=== PATIENT | female | born 1980 | race African-American/Black ===

== ENCOUNTER → 2018-05-31 16:54 | Outpatient (REF) | payer OTHER, SELFPAY | LOC: NCHCN 16:54 | PROVIDERS: PCP Family Medicine; Visit Provider Family Medicine | DX: J02.9 Acute pharyngitis, unspecified (principal) | CPT/HCPCS: 87070 ==

== ENCOUNTER 2018-08-26 03:15 | Emergency (ER) | payer OTHER, SELFPAY ==
[2018-08-26 03:21] VITALS: BP 146/85; PULSE 105; RESP 20; TEMP 36.8; O2SAT 98
[2018-08-26] MEDS: Bupivacaine 0.5% Pres-Free 30 ML VIAL IJ (03:26)
--- NOTE | 2018-08-26 03:26 | W.ED.GENAD ---
Discharge Plan Disposition Patient Disposition: HOME Condition: Improving Discharge Details Chief Complaint: DentalOral Clinical Impression: Sinusitis, acute maxillary Primary Care Provider: Nicky Brewster V ED Provider: Fred Armendariz Home Meds and New Rx's Prescriptions: New clindamycin HCl 300 mg capsule 300 mg PO QID Qty: 28 RF: 0 Continue celecoxib [Celebrex] 100 MG capsule 200 mg PO DAILY RF: 0 citalopram 10 MG tablet 10 mg PO DAILY RF: 0 sucralfate [Carafate] 1 GM tablet 1 g PO QID RF: 0 ciclesonide [Omnaris] 12.5 GM spray,non-aerosol 100 mcg NS DAILY RF: 0 levonorgestrel [Mirena] 1 EACH intrauterine device 1 ea Intrauterine ONCE Qty: 1 RF: 0 hydroxychloroquine 200 MG tablet 400 mg PO BID RF: 0 cyanocobalamin (vitamin B-12) [Vitamin B-12] 1,000 MCG/ML drops 1,000 mcg IM DIRECTED RF: 0 ergocalciferol (vitamin D2) [Vitamin D2] 50,000 UNITS capsule 1 tab PO DIRECTED RF: 0 cetirizine 10 MG tablet 10 mg PO DAILY RF: 0 epinephrine [EpiPen 2-Don] 0.3 MG/0.3 ML auto-injector 0.3 mg IJ PRN PRNQty: 1 RF: 0 spironolactone 100 MG tablet 100 mg PO DAILY RF: 0 Discharge Instructions Instructions: Sinusitis (ED) Additional Instructions: May use tramadol, if needed for severe pain. May also use Tylenol. Please follow-up with dentistry for recheck. Take clindamycin as prescribed. I recommend you take an [id number] probiotic while using this medication. Return to the emergency department for any acute concerns Medical Decision Making 38-year-old female presents with left maxillary pain over hours time. She has poor dentition on exam as well as distended left tympanic membrane. Differential diagnosis includes maxillary sinusitis versus odontalgia/apical infection. Patient given apical block with a 50-50 mix of lidocaine and Marcaine. I will place her on a course of antibiotics. Given her allergy profile, will opt for clindamycin. Patient will follow up with dentistry. Return precautions to the ER were discussed. HPI General Mode of arrival: ambulatory. Date/Time Provider Initiated Documentation: 08/26/18 03:18. Limitations to Documentation: no limitations. History of Present Illness 38 year old F presents to the emergency department with the chief complaint of Left maxillary pain, no rash, described as severe, Quality is described as aching, and is localized to the face and left. Patient started experiencing this hour(s) and it has been constant. No relieving factors improve symptom(s), No exacerbating factors reported . Patient notes no other symptoms.; denies fever/chills, nausea/vomiting and rash. Related Data Home Medications Medication Instructions Recorded Confirmed cyanocobalamin (vitamin B-12) 1,000 mcg IM DIRECTED 02/10/14 08/26/18 [Vitamin B-12] hydroxychloroquine 400 mg PO BID 02/10/14 08/26/18 ergocalciferol (vitamin D2) 1 tab PO DIRECTED 06/22/14 08/26/18 [Vitamin D2] celecoxib [Celebrex] 200 mg PO DAILY tab-cap 10/20/14 04/27/17 cetirizine 10 mg PO DAILY 01/20/15 08/26/18 epinephrine [EpiPen 2-Don] 0.3 mg IJ PRN PRN #1 ml 01/21/15 08/26/18 ciclesonide [Omnaris] 100 mcg NS DAILY spray 12/01/16 08/26/18 citalopram 10 mg PO DAILY tab-cap 12/01/16 08/26/18 sucralfate [Carafate] 1 g PO QID tab-cap 12/01/16 08/26/18 spironolactone 100 mg PO DAILY 04/27/17 08/26/18 levonorgestrel [Mirena] 1 ea INTRAUTERINE ONCE #1 implant 06/26/17 08/26/18 clindamycin HCl 300 mg PO QID #28 cap 08/26/18 Previous Rx's Medication Instructions Recorded epinephrine [EpiPen 2-Don] 0.3 mg IJ PRN PRN #1 ml 01/21/15 clindamycin HCl 300 mg PO QID #28 cap 08/26/18 Allergies Allergy/AdvReac Type Severity Reaction Status Date / Time apricot Allergy Severe swelling Unverified 08/26/18 03:28 of lips and throat cholestyramine Allergy Severe sores in Unverified 08/26/18 03:28 [From Questran] mouth and throat ibuprofen Allergy Severe high dose Unverified 08/26/18 03:28 causes extreme swelling peach Allergy Severe swelling Unverified 08/26/18 03:28 lips and throat sucrose [From Questran] Allergy Severe sores in Unverified 08/26/18 03:28 mouth and throat tree nut Allergy Severe Unverified 08/26/18 03:28 banana Allergy Intermediate Unverified 08/26/18 03:28 ivermectin Allergy Intermediate leukocytoclastic Unverified 08/26/18 03:28 vasculitis penicillamine Allergy Intermediate hives,swell Unverified 08/26/18 03:28 ing Penicillins Allergy Intermediate hives, Unverified 08/26/18 03:28 swelling venlafaxine HCl Allergy Intermediate UNKNOWN Unverified 08/26/18 03:28 [From Effexor] doxycycline Allergy Mild I don't Unverified 08/26/18 03:28 tolerate it montelukast sodium AdvReac Severe facial Unverified 08/26/18 03:28 [From Singulair] swelling, itching, depression bupropion HCl AdvReac Intermediate visual Unverified 08/26/18 03:28 [From Wellbutrin] disturbances latex AdvReac Intermediate Skin Rash Unverified 08/26/18 03:28 walnut Allergy Severe swelling Uncoded 08/26/18 03:28 tongue and throat Review of Systems Review of Systems 6 systems reviewed and otherwise negative PFSH Family History Other Hydradenitis Ingrown hair Medical History Depression Dry eye syndrome Endometritis Fibromyalgia Migraine Obesity Social History Smoking/Tobacco Use Status: Never Surgical History section Cholecystectomy Exam Narrative Exam Narrative: GEN: awake, alert, oriented 3. Pleasant, well groomed, and HEAD: Normocephalic, atraumatic ENT: Mucous membranes moist, oropharynx unremarkable, External ear exam unremarkable. Left tympanic membrane distended with loss of light reflex. Numerous dental caries. Tenderness to percussion of left maxillary premolar EYES: PERRL, EOMI NECK: Full ROM, no ALVIN, no menigismus CHEST/RESP: Nontender, clear to auscultation bilateral, no wheeze/rhonchi/rales CARDIOVASCULAR: RRR, no murmur, rub dale. 2+ Rad pulse bilateral ABDOMEN: Soft, nontender, no mass. +Bowel sounds EXT: Full ROM, no edema, no rash Neuro: Grossly normal neurologic exam, conversant, interactive. Psych: Speech fluent, thoughts congruent, affect anxious
--- NOTE | 2018-08-26 03:30 | ED.GENADUL_ITS ---
Discharge Plan Disposition Patient Disposition: HOME Condition: Improving Discharge Details Chief Complaint: DentalOral Clinical Impression: Sinusitis, acute maxillary Primary Care Provider: Nicky Brewster V ED Provider: Fred Armendariz Home Meds and New Rx's Prescriptions: New clindamycin HCl 300 mg capsule 300 mg PO QID Qty: 28 RF: 0 Continue celecoxib [Celebrex] 100 MG capsule 200 mg PO DAILY RF: 0 citalopram 10 MG tablet 10 mg PO DAILY RF: 0 sucralfate [Carafate] 1 GM tablet 1 g PO QID RF: 0 ciclesonide [Omnaris] 12.5 GM spray,non-aerosol 100 mcg NS DAILY RF: 0 levonorgestrel [Mirena] 1 EACH intrauterine device 1 ea Intrauterine ONCE Qty: 1 RF: 0 hydroxychloroquine 200 MG tablet 400 mg PO BID RF: 0 cyanocobalamin (vitamin B-12) [Vitamin B-12] 1,000 MCG/ML drops 1,000 mcg IM DIRECTED RF: 0 ergocalciferol (vitamin D2) [Vitamin D2] 50,000 UNITS capsule 1 tab PO DIRECTED RF: 0 cetirizine 10 MG tablet 10 mg PO DAILY RF: 0 epinephrine [EpiPen 2-Don] 0.3 MG/0.3 ML auto-injector 0.3 mg IJ PRN PRNQty: 1 RF: 0 spironolactone 100 MG tablet 100 mg PO DAILY RF: 0 Discharge Instructions Instructions: Sinusitis (ED) Additional Instructions: May use tramadol, if needed for severe pain. May also use Tylenol. Please follow-up with dentistry for recheck. Take clindamycin as prescribed. I recommend you take an [id number] probiotic while using this medication. Return to the emergency department for any acute concerns Medical Decision Making 38-year-old female presents with left maxillary pain over hours time. She has poor dentition on exam as well as distended left tympanic membrane. Differential diagnosis includes maxillary sinusitis versus odontalgia/apical infection. Patient given apical block with a 50-50 mix of lidocaine and Marcaine. I will place her on a course of antibiotics. Given her allergy profile, will opt for clindamycin. Patient will follow up with dentistry. Return precautions to the ER were discussed. HPI General Mode of arrival: ambulatory . Date/Time Provider Initiated Documentation: 08/26/18 03:18 . Limitations to Documentation: no limitations . History of Present Illness 38 year old F presents to the emergency department with the chief complaint of Left maxillary pain, no rash, described as severe, Quality is described as aching, and is localized to the face and left. Patient started experiencing this hour(s) and it has been constant. No relieving factors improve symptom( s), No exacerbating factors reported . Patient notes no other symptoms.; denies fever/chills, nausea/vomiting and rash. Related Data Home Medications Medication Instructions Recorded Confirmed cyanocobalamin (vitamin B-12) 1,000 mcg IM DIRECTED 02/10/14 08/26/18 [Vitamin B-12] hydroxychloroquine 400 mg PO BID 02/10/14 08/26/18 ergocalciferol (vitamin D2) 1 tab PO DIRECTED 06/22/14 08/26/18 [Vitamin D2] celecoxib [Celebrex] 200 mg PO DAILY tab-cap 10/20/14 04/27/17 cetirizine 10 mg PO DAILY 01/20/15 08/26/18 epinephrine [EpiPen 2-Don] 0.3 mg IJ PRN PRN #1 ml 01/21/15 08/26/18 ciclesonide [Omnaris] 100 mcg NS DAILY spray 12/01/16 08/26/18 citalopram 10 mg PO DAILY tab-cap 12/01/16 08/26/18 sucralfate [Carafate] 1 g PO QID tab-cap 12/01/16 08/26/18 spironolactone 100 mg PO DAILY 04/27/17 08/26/18 levonorgestrel [Mirena] 1 ea INTRAUTERINE ONCE #1 implant 06/26/17 08/26/18 clindamycin HCl 300 mg PO QID #28 cap 08/26/18 Previous Rx's Medication Instructions Recorded epinephrine [EpiPen 2-Don] 0.3 mg IJ PRN PRN #1 ml 01/21/15 clindamycin HCl 300 mg PO QID #28 cap 08/26/18 Allergies Allergy/AdvReac Type Severity Reaction Status Date / Time apricot Allergy Severe swelling Unverified 08/26/18 03:28 of lips and throat cholestyramine Allergy Severe sores in Unverified 08/26/18 03:28 [From Questran] mouth and throat ibuprofen Allergy Severe high dose Unverified 08/26/18 03:28 causes extreme swelling peach Allergy Severe swelling Unverified 08/26/18 03:28 lips and throat sucrose [From Questran] Allergy Severe sores in Unverified 08/26/18 03:28 mouth and throat tree nut Allergy Severe Unverified 08/26/18 03:28 banana Allergy Intermediate Unverified 08/26/18 03:28 ivermectin Allergy Intermediate leukocytoclastic Unverified 08/26/18 03:28 vasculitis penicillamine Allergy Intermediate hives,swell Unverified 08/26/18 03:28 ing Penicillins Allergy Intermediate hives, Unverified 08/26/18 03:28 swelling venlafaxine HCl Allergy Intermediate UNKNOWN Unverified 08/26/18 03:28 [From Effexor] doxycycline Allergy Mild I don't Unverified 08/26/18 03:28 tolerate it montelukast sodium AdvReac Severe facial Unverified 08/26/18 03:28 [From Singulair] swelling, itching, depression bupropion HCl AdvReac Intermediate visual Unverified 08/26/18 03:28 [From Wellbutrin] disturbances latex AdvReac Intermediate Skin Rash Unverified 08/26/18 03:28 walnut Allergy Severe swelling Uncoded 08/26/18 03:28 tongue and throat Review of Systems Review of Systems 6 systems reviewed and otherwise negative PFSH Family History Other Hydradenitis Ingrown hair Medical History Depression Dry eye syndrome Endometritis Fibromyalgia Migraine Obesity Social History Smoking/Tobacco Use Status: Never Surgical History section Cholecystectomy Exam Narrative Exam Narrative: GEN: awake, alert, oriented 3. Pleasant, well groomed, and HEAD: Normocephalic, atraumatic ENT: Mucous membranes moist, oropharynx unremarkable, External ear exam unremarkable. Left tympanic membrane distended with loss of light reflex. Numerous dental caries. Tenderness to percussion of left maxillary premolar EYES: PERRL, EOMI NECK: Full ROM, no ALVIN, no menigismus CHEST/RESP: Nontender, clear to auscultation bilateral, no wheeze/rhonchi/rales CARDIOVASCULAR: RRR, no murmur, rub dale. 2+ Rad pulse bilateral ABDOMEN: Soft, nontender, no mass. +Bowel sounds EXT: Full ROM, no edema, no rash Neuro: Grossly normal neurologic exam, conversant, interactive. Psych: Speech fluent, thoughts congruent, affect anxious
[2018-08-26] MEDS: Clindamycin 150 MG CAP 600 MG PO (03:48)
[2018-08-26 03:50] VITALS: BP 146/85; PULSE 105; RESP 20; TEMP 36.8; O2SAT 98
== END 2018-08-26 03:46 | disposition home or self-care (01) ==
LOC: ER 03:59
PROVIDERS: Emergency Provider Emergency Medicine; PCP Family Medicine
DX: J01.00 Acute maxillary sinusitis, unspecified (principal)
CPT/HCPCS: 64402; 99283

== ENCOUNTER 2018-09-20 00:30 | Outpatient (CLI) | payer OTHER, SELFPAY ==
--- NOTE | 2018-09-20 07:35 | DI.MAMMO_ITS ---
SYMPTOM/DIAGNOSIS: SCREENING, BASELINE, [facility], Z00.00 MAMMOGRAMS: Mammograms were interpreted according to the usual protocol including computer analysis with CAD system, tomosynthesis and C view imaging. This is a baseline examination. Breast density, category B. No suspicious masses or microcalcifications are seen. The skin and axilla are unremarkable. IMPRESSION: No evidence for malignancy. Yearly mammography is recommended. Category 1. MQSA ASSESSMENT OF FINDINGS: Negative. Category 1. Patient will receive a letter notifying them of these results. BI-RADS category B. There are scattered areas of fibroglandular density.
== END 2018-09-20 00:50 ==
PROVIDERS: PCP Family Medicine; Visit Provider Family Medicine
DX: Z00.00 Encounter for general adult medical examination without abnormal findings (principal); Z12.31 Encounter for screening mammogram for malignant neoplasm of breast
CPT/HCPCS: 77063; 77067

== ENCOUNTER 2018-12-04 08:46 | Outpatient (CLI) | payer OTHER, SELFPAY ==
[2018-12-04] MEDS: Barium Sulfate 60% W/V 355 ML BTL PO (10:02)
[2018-12-04] MEDS: Barium Sulfate 700 MG TAB PO (10:04)
--- NOTE | 2018-12-04 10:05 | DI.RAD_ITS ---
SYMPTOMS/DIAGNOSIS: INTERMITTENT DYSPHAGIA, R13.10, SENSE OF FOOD GETTING STUCK, ESOPHAGEAL DYSMOTILITY, POSSIBLE HIATAL HERNIA BARIUM SWALLOW: Routine examination was performed. Chest x-ray was performed. The heart size and pulmonary vasculature are within normal limits. The lungs are clear and well expanded. No effusions or pneumothoraces are identified. There is a mild right convex scoliosis of the thoracic spine. Barium swallow was performed according to protocol. There is a normal swallowing mechanism. No gastroesophageal reflux or aspiration was identified. No intrinsic or extrinsic masses are seen in the esophagus. No ulcers or strictures are appreciated. Note is made of a small hiatal hernia. IMPRESSION: Small hiatal hernia. Otherwise negative examination.
== END 2018-12-04 09:06 ==
PROVIDERS: PCP Family Medicine; Visit Provider Family Medicine
DX: R13.10 Dysphagia, unspecified (principal); K44.9 Diaphragmatic hernia without obstruction or gangrene
CPT/HCPCS: 74220

== ENCOUNTER 2019-01-08 10:19 | Emergency (ER) | payer OTHER, SELFPAY ==
--- NOTE | 2019-01-08 10:24 | DI.CT_ITS ---
SYMPTOMS/DIAGNOSIS: LT SIDED ABD PAIN CT OF THE ABDOMEN AND PELVIS: There are no prior comparison abdomen and pelvic exams. Images were performed from the lung bases through the ischial tuberosities after IV and without oral contrast. The lung bases are clear. The patient is status post cholecystectomy. The liver, spleen, pancreas, right adrenal and kidneys are unremarkable. There is a stable small low density left adrenal nodule consistent with an adenoma. There is no bowel dilatation or inflammatory change. The appendix is not definitely seen. An IUD is noted within the uterus. The right ovary is unremarkable. There are three or four small cysts on the left ovary. There is no free fluid. The bladder is nearly empty and grossly normal. There is a small amount of fat at the umbilicus. There is a fatty containing hernia seen in the midline above the level of the umbilicus containing fat. The aorta is normal in diameter. IMPRESSION: Several small left ovarian cysts. The bladder is nearly empty and is not well evaluated.
--- NOTE | 2019-01-08 10:29 | ED.GENADUL_ITS ---
Discharge Plan Disposition Patient Disposition: HOME Condition: Stable Discharge Details Chief Complaint: Abd Prob Clinical Impression: Abdominal pain, Fatty hernia of linea alba Primary Care Provider: Nicky Brewster V ED Provider: Kraig Galloway Home Meds and New Rx's Prescriptions: New ondansetron 4 mg tablet,disintegrating 4 mg PO TID PRN (Reason: nausea and vomiting) 5 Days Qty: 20 RF: 0 No Action citalopram 10 MG tablet 10 mg PO DAILY RF: 0 sucralfate [Carafate] 1 GM tablet 1 g PO QID RF: 0 ciclesonide [Omnaris] 12.5 GM spray,non-aerosol 100 mcg NS DAILY RF: 0 levonorgestrel [Mirena] 1 EACH intrauterine device 1 ea Intrauterine ONCE Qty: 1 RF: 0 levonorgestrel [Mirena] 20 mcg/24 hr (5 years) intrauterine device 1 insert IY ONCE RF: 0 hydroxychloroquine 200 MG tablet 400 mg PO BID RF: 0 cyanocobalamin (vitamin B-12) [Vitamin B-12] 1,000 MCG/ML drops 1,000 mcg IM DIRECTED RF: 0 ergocalciferol (vitamin D2) [Vitamin D2] 50,000 UNITS capsule 1 tab PO DIRECTED RF: 0 cetirizine 10 MG tablet 10 mg PO DAILY RF: 0 epinephrine [EpiPen 2-Don] 0.3 MG/0.3 ML auto-injector 0.3 mg IJ PRN PRNQty: 1 RF: 0 spironolactone 100 MG tablet 100 mg PO DAILY RF: 0 Discharge Instructions Additional Instructions: I placed you on our follow up list to see a general surgeon to discuss treatment options of your small hernia if you have severe worsening of pain or persistent vomit return to the emergency department Medical Decision Making 38 yo female comes in with sevreal days of abdominal pain localizes to the left side and nausea, and feeling burning in her throat as if she is going to throw up. She has no chest pain, sob, or fevers. She has tenderness without gurading of the left side of the abdomen. Given her symptoms and abdominal exam findings will obtain lab work and iaging to eval for pancreatitis, sbo and other pathologies. HAs no chset pain or sob and has tenderness in the left abdomen on exam so do not feel w/u for acs indicated at this time pt's labs and imaging show no emergent findings, has ovarian cysts and fat containing hernia. She feels better after zofran, tolerating po and only has mild left sided abdmoinal pain. FEel she is safe for discahrge and f/u with general surgery for her hernia, return precautions given Differential Diagnosis sbo, diverticulitis, gerd Imaging Data Radiologic Study: Attestation: I personally reviewed and interpreted this imaging study as follows: Imaging: CT Scan Radiologist's impression: Patient Name: RAFIA FERRERA #: [id number]: ER Ordering Provider: Kraig Galloway M.D. : REG ER Primary Care Provider: Nicky Brewster M.D.Date of Exam: 01/08/19Sex: F : 1980Age: 38 Exam(s) a CT:CT abdomen & pelvis w SYMPTOMS/DIAGNOSIS: LT SIDED ABD PAIN CT OF THE ABDOMEN AND PELVIS: There are no prior comparison abdomen and pelvic exams. Images were performed from the lung bases through the ischial tuberosities after IV and without oral contrast. The lung bases are clear. The patient is status post cholecystectomy. The liver, spleen, pancreas, right adrenal and kidneys are unremarkable. There is a stable small low density left adrenal nodule consistent with an adenoma. There is no bowel dilatation or inflammatory change. The appendix is not definitely seen. An IUD is noted within the uterus. The right ovary is unremarkable. There are three or four small cysts on the left ovary. There is no free fluid. The bladder is nearly empty and grossly normal. There is a small amount of fat at the umbilicus. There is a fatty containing hernia seen in the midline above the level of the umbilicus containing fat. The aorta is normal in diameter. IMPRESSION: Several small left ovarian cysts. The bladder is nearly empty and is not well evaluated. Lab Data Lab results reviewed: Yes I reviewed the patient's lab results. HPI General Mode of arrival: ambulatory . Date/Time Provider Initiated Documentation: 01/08/19 10:19 . Limitations to Documentation: no limitations . Information obtained by: patient . History of Present Illness 38 year old F presents to the emergency department with the chief complaint of abdominal pain, described as moderate, Quality is described as stabbing, and is localized to the abdomen. Patient reports no radiation. Patient started experiencing this day(s) (3) and it has been constant. No relieving factors improve symptom(s), No exacerbating factors reported . Patient notes other (nausea). Patient did receive the following treatments prior to arrival, none Related Data Home Medications Medication Instructions Recorded Confirmed cyanocobalamin (vitamin B-12) 1,000 mcg IM DIRECTED 02/10/14 09/13/18 [Vitamin B-12] hydroxychloroquine 400 mg PO BID 02/10/14 08/26/18 ergocalciferol (vitamin D2) 1 tab PO DIRECTED 06/22/14 09/13/18 [Vitamin D2] cetirizine 10 mg PO DAILY 01/20/15 09/13/18 epinephrine [EpiPen 2-Don] 0.3 mg IJ PRN PRN #1 ml 01/21/15 09/13/18 ciclesonide [Omnaris] 100 mcg NS DAILY spray 12/01/16 09/13/18 citalopram 10 mg PO DAILY tab-cap 12/01/16 09/13/18 sucralfate [Carafate] 1 g PO QID tab-cap 12/01/16 09/13/18 spironolactone 100 mg PO DAILY 04/27/17 09/13/18 levonorgestrel [Mirena] 1 ea INTRAUTERINE ONCE #1 implant 06/26/17 09/13/18 levonorgestrel 20 mcg/24 hours (5 1 insert IY ONCE 09/18/18 yrs) 52 mg intrauterine device ondansetron 4 mg PO TID PRN 5 Days #20 tab 01/08/19 Previous Rx's Medication Instructions Recorded epinephrine [EpiPen 2-Don] 0.3 mg IJ PRN PRN #1 ml 01/21/15 ondansetron 4 mg PO TID PRN 5 Days #20 tab 01/08/19 Allergies Allergy/AdvReac Type Severity Reaction Status Date / Time apricot Allergy Severe swelling Unverified 09/13/18 13:59 of lips and throat cholestyramine Allergy Severe sores in Unverified 09/13/18 13:59 [From Questran] mouth and throat ibuprofen Allergy Severe high dose Unverified 09/13/18 13:59 causes extreme swelling peach Allergy Severe swelling Unverified 09/13/18 13:59 lips and throat sucrose [From Questran] Allergy Severe sores in Unverified 09/13/18 13:59 mouth and throat tree nut Allergy Severe Unverified 09/13/18 13:59 banana Allergy Intermediate Unverified 09/13/18 13:59 ivermectin Allergy Intermediate leukocytoclastic Unverified 09/13/18 13:59 vasculitis penicillamine Allergy Intermediate hives,swell Unverified 09/13/18 13:59 ing Penicillins Allergy Intermediate hives, Unverified 09/13/18 13:59 swelling venlafaxine HCl Allergy Intermediate UNKNOWN Unverified 09/13/18 13:59 [From Effexor] doxycycline Allergy Mild I don't Unverified 09/13/18 13:59 tolerate it montelukast sodium AdvReac Severe facial Unverified 09/13/18 13:59 [From Singulair] swelling, itching, depression bupropion HCl AdvReac Intermediate visual Unverified 09/13/18 13:59 [From Wellbutrin] disturbances latex AdvReac Intermediate Skin Rash Unverified 09/13/18 13:59 walnut Allergy Severe swelling Uncoded 09/13/18 13:59 tongue and throat General SUJATA: 4 Review of Systems Review of Systems All systems reviewed & are unremarkable except as noted in HPI and below Constitutional Denies fever(s) and Denies weakness ENT Denies change in voice Cardiovascular Denies chest pain and Denies dyspnea Respiratory Denies cough and Denies dyspnea Genitourinary Denies dysuria Musculoskeletal Denies joint swelling Integumentary/Breasts Denies rash Neurologic Denies weakness Endocrine Denies heat intolerance PFSH Medical History Depression Dry eye syndrome Endometritis Fibromyalgia Migraine Obesity Surgical History section Cholecystectomy Family History Other Hydradenitis Ingrown hair Social History Smoking/Tobacco Use Status: Never Drug use: Never Do you feel safe in your relationship?: Yes Exam Const General: no acute distress Orientation: alert HENMT Head: normal to inspection Ears: external ears normal General nose exam: external nose normal Mouth: moist mucous membranes Eyes General: appearance normal, both eyes and all related structures Neck Neck: normal visual inspection Resp Effort & Inspection: normal respiratory effort and able to speak in complete sentences Cardio Rate: regular rate GI Palpation: soft Skin General skin exam: no rashes or lesions noted Neuro General: alert and oriented x3 Extrem General: normal to inspection Psych Mental Status: mental status grossly normal
[2019-01-08 10:43] LABS: Abs Immature Grans 0.02 k/cumm (0.0-0.09); Absolute Basophil Count 0.02 k/cumm (0.0-0.2); Absolute Neutrophil Count 7.94 k/cumm (1.2-6.7); Basophils % 0.2; Eosinophils % 1.7; HCT 38.2 % (36.0-46.0); HGB 12.6 g/dL (12.0-15.5); Immature Grans % 0.2; Mean Corpuscular Hemoglobin 28.7 pg (27.0-33.0); Monocytes % 5.4; Neutrophils % 66.5; Platelet Count 351 x1000/uL (130-400); RBC 4.39 m/cumm (4.00-5.20); RBC Distribution Width 14.5 % (11.7-14.6); White Blood Cell Count 11.94 k/cumm (4.4-10.8)
[2019-01-08] MEDS: Normal Saline 1,000 ML 1000 ML IV (10:45)
[2019-01-08] MEDS: Ondansetron 4 MG/2 ML VIAL IVP (10:45)
[2019-01-08 10:47] LABS: Absolute Monocyte Count 0.64 k/cumm (0.11-0.7)
[2019-01-08 10:54] VITALS: BP 151/96; PULSE 97; RESP 16; TEMP 36.2; O2SAT 96
[2019-01-08 10:58] LABS: PTT Activated 25.7 sec (21.0-31.4); Prothrombin Time 10.2 sec (9.3-11.0)
[2019-01-08 11:05] LABS: Bilirubin Negative (Negative); Blood Negative (Negative); Clarity Clear; Glucose Negative (Negative); Ketones Negative (Negative); Leukocyte Esterase Negative (Negative); Nitrite Negative (Negative); Specific Gravity 1.025 (1.005-1.025); Urobilinogen 0.2 EU/dL (Up TO 0.2); pH 5.5 (5-8)
[2019-01-08 11:06] LABS: ALT 16 U/L (12-78); AST 12 U/L (15-37); Albumin 3.5 g/dL (3.4-5.0); Alkaline Phosphatase 93 U/L (46-116); Bilirubin, Direct 0.09 mg/dL (0.00-0.20); Bilirubin, Total 0.3 mg/dL (0.2-1.0); Lipase 65 U/L (73-393); Total Protein 8.4 g/dL (6.4-8.2)
[2019-01-08 11:09] LABS: ALT 13 U/L (12-78); AST 10 U/L (15-37); Albumin 3.5 g/dL (3.4-5.0); Alkaline Phosphatase 93 U/L (46-116); Anion Gap 10.3 mmol/L (3-11); BUN 14 mg/dL (7-18); Bilirubin, Total 0.4 mg/dL (0.2-1.0); CO2 26.7 mmol/L (21.0-32.0); CREATININE 0.75 mg/dL (0.55-1.02); Calcium 9.1 mg/dL (8.5-10.1); Chloride 103 mmol/L (98-107); Glucose 96 mg/dL (70-100); Magnesium 1.9 mg/dL (1.8-2.4); Potassium 3.8 mmol/L (3.5-5.1); Sodium 140 mmol/L (136-145); Total Protein 8.4 g/dL (6.4-8.2)
[2019-01-08] MEDS: Omnipaque 350 MG/ML 100 ML BTL IJ (11:10)
[2019-01-08 12:08] VITALS: BP 151/96; PULSE 97; RESP 16; TEMP 36.2; O2SAT 96
--- NOTE | 2019-01-09 13:00 | PDOC.ERCMPRO ---
Care Management Progress Note 01/09- requested assistance with a general surgery f/u in one week for hernia. Referral faxed to [facility] this am.
--- NOTE | 2019-01-09 13:02 | CMPROGNOTE_ITS ---
Care Management Progress Note 01/09- requested assistance with a general surgery f/u in one week for hernia. Referral faxed to [facility] this am.
== END 2019-01-08 12:05 | disposition home or self-care (01) ==
PROVIDERS: Emergency Provider Emergency Medicine; PCP Family Medicine
DX: R10.9 Unspecified abdominal pain (principal); K43.9 Ventral hernia without obstruction or gangrene; R11.0 Nausea
CPT/HCPCS: 36415; 80053; 80076; 83690; 96361; 96374; 99285; 74177; 81003; 83735; 85025; 85610; 85730; 99284; J2405; J3490

== ENCOUNTER 2019-03-20 16:19 | Outpatient (REF) | payer OTHER, SELFPAY ==
[2019-03-20 21:23] LABS: Vitamin B12 342 pg/mL (193-986)
== END 2019-03-20 16:39 ==
LOC: NCHCN 16:19
PROVIDERS: PCP Family Medicine; Visit Provider Nurse Practitioner Family
DX: M77.11 Lateral epicondylitis, right elbow (principal); E53.8 Deficiency of other specified B group vitamins
CPT/HCPCS: 82607

== ENCOUNTER 2019-03-24 18:09 | Outpatient (REF) | payer OTHER, SELFPAY ==
[2019-03-24 22:05] LABS: C & S Indicated? No
[2019-03-24 22:07] LABS: Bacteria Negative HPF (Negative); Crystals Many Amorphous HPF (Negative); Epithelial Cells Negative HPF (Negative); Mucus Negative (Negative); RBC Negative (0-2); WBC Negative HPF (0-5)
== END 2019-03-24 18:29 ==
LOC: NCHCN 18:09
PROVIDERS: PCP Family Medicine; Visit Provider Family Medicine
DX: R30.0 Dysuria (principal)
CPT/HCPCS: 81015

== ENCOUNTER 2019-05-01 16:06 | Outpatient (REF) | payer OTHER, SELFPAY ==
[2019-05-01 23:58] LABS: Bacteria Many HPF (Negative); Crystals Negative HPF (Negative); Epithelial Cells Many HPF (Negative); Other Cells Negative (Negative); RBC Negative (0-2)
[2019-05-01 23:59] LABS: C & S Indicated? No/Sq. Contamination; Mucus Negative (Negative)
== END 2019-05-01 16:26 ==
LOC: NCHCN 16:06
PROVIDERS: PCP Family Medicine; Visit Provider Family Medicine
DX: R35.0 Frequency of micturition (principal)
CPT/HCPCS: 81015

== ENCOUNTER 2019-05-04 11:11 | Emergency (ER) | payer OTHER, SELFPAY ==
[2019-05-04 11:17] VITALS: BP 130/65; PULSE 122; RESP 18; TEMP 36.8; O2SAT 98
--- NOTE | 2019-05-04 12:06 | ED.GENADUL_ITS ---
Discharge Plan Disposition Patient Disposition: HOME Discharge Details Chief Complaint: Sorethroat Clinical Impression: Acute pharyngitis Primary Care Provider: Nicky Brewster V ED Provider: Edmond Vázquez Home Meds and New Rx's Prescriptions: Continued tramadol 50 mg tablet 50 mg PO Q6H PRNRF: 0 citalopram 10 MG tablet 10 mg PO PRN PRNRF: 0 sucralfate [Carafate] 1 GM tablet 1 g PO PRN PRNRF: 0 Mirena 1 EACH intrauterine device 1 ea Intrauterine ONCE Qty: 1 RF: 0 Mirena 20 mcg/24 hr (5 years) intrauterine device 1 insert IY ONCE RF: 0 hydroxychloroquine 200 MG tablet 400 mg PO DAILY RF: 0 Vitamin B-12 1,000 MCG/ML drops 1,000 mcg IM DIRECTED RF: 0 ergocalciferol (vitamin D2) [Vitamin D2] 50,000 UNITS capsule 1 tab PO DIRECTED RF: 0 cetirizine 10 MG tablet 10 mg PO DAILY RF: 0 epinephrine [EpiPen 2-Don] 0.3 MG/0.3 ML auto-injector 0.3 mg IJ PRN PRNQty: 1 RF: 0 Discharge Instructions Instructions: Pharyngitis (ED) Additional Instructions: Please drink plenty of fluids to stay hydrated. Please take acetaminophen (tylenol) - 650mg every 6 hours by mouth as needed for pain. Allow for plenty of rest over the next couple days. Please contact your primary care physician to arrange follow-up. Return to the ER for any worsening or new concerning symptoms. Stand Alone Forms: Work Release Referrals: Nicky Brewster MD [Primary Care Provider] - Discharge Data Discharge Date/Time-TO BE ENTERED AT DEPARTURE: 05/04/19 14:00 Medical Decision Making 12:15 --38-year-old female here with sore throat, pharyngitis on exam. Patient is tachycardic. She has not been drinking as much fluid as it hurts to swallow. Plan to treat with Decadron 10 mg orally and Tylenol 650 mg orally. Patient has allergy to NSAIDs. I suggested IV fluid given her tachycardia and patient declined. She preferred to treat discomfort and then take oral fluids. Plan to reassess. 13:53 --patient reassessed after oral fluid rehydration and heart rate improved. Rapid strep testing was negative. Throat culture sent. Plan is for patient to follow-up with her primary care physician. I will provide a work note for the next couple days to allow her to rest. Usual and customary discharge instructions were provided. I encouraged her to continue oral rehydration and I encouraged her to return should she have any worsening or new concerning symptoms. HPI General Mode of arrival: ambulatory . Date/Time Provider Initiated Documentation: 05/04/19 11:20 . Limitations to Documentation: no limitations . Information obtained by: patient . HPI Narrative: 38-year-old female with history of fibromyalgia, on Plaquenil, here with chief complaint of sore throat. Patient notes she is had a sore throat for the past 3 days. Sore throat is bilateral. Severe. Worse with swallowing. She had associated fever. No changes in her voice. No rash. She does note that she has some ear fullness. Related Data Home Medications Medication Instructions Recorded Confirmed Vitamin B-12 1,000 mcg IM DIRECTED 02/10/14 05/04/19 hydroxychloroquine 400 mg PO DAILY 02/10/14 05/04/19 ergocalciferol (vitamin D2) 1 tab PO DIRECTED 06/22/14 05/04/19 [Vitamin D2] cetirizine 10 mg PO DAILY 01/20/15 05/04/19 epinephrine [EpiPen 2-Don] 0.3 mg IJ PRN PRN #1 ml 01/21/15 05/04/19 citalopram 10 mg PO PRN PRN tab-cap 12/01/16 05/04/19 sucralfate [Carafate] 1 g PO PRN PRN tab-cap 12/01/16 05/04/19 Mirena 1 ea INTRAUTERINE ONCE #1 implant 06/26/17 05/04/19 levonorgestrel 20 mcg/24 hours (5 1 insert IY ONCE 09/18/18 05/04/19 yrs) 52 mg intrauterine device tramadol 50 mg tablet 50 mg PO Q6H PRN 01/13/19 05/04/19 Previous Rx's Medication Instructions Recorded epinephrine [EpiPen 2-Don] 0.3 mg IJ PRN PRN #1 ml 01/21/15 Allergies Allergy/AdvReac Type Severity Reaction Status Date / Time apricot Allergy Severe swelling Unverified 09/13/18 13:59 of lips and throat cholestyramine Allergy Severe sores in Unverified 09/13/18 13:59 [From Questran] mouth and throat ibuprofen Allergy Severe high dose Unverified 09/13/18 13:59 causes extreme swelling peach Allergy Severe swelling Unverified 09/13/18 13:59 lips and throat sucrose [From Questran] Allergy Severe sores in Unverified 09/13/18 13:59 mouth and throat tree nut Allergy Severe Unverified 09/13/18 13:59 banana Allergy Intermediate Unverified 09/13/18 13:59 ivermectin Allergy Intermediate leukocytoclastic Unverified 09/13/18 13:59 vasculitis penicillamine Allergy Intermediate hives,swell Unverified 09/13/18 13:59 ing Penicillins Allergy Intermediate hives, Unverified 09/13/18 13:59 swelling venlafaxine HCl Allergy Intermediate UNKNOWN Unverified 09/13/18 13:59 [From Effexor] doxycycline Allergy Mild I don't Unverified 09/13/18 13:59 tolerate it montelukast sodium AdvReac Severe facial Unverified 09/13/18 13:59 [From Singulair] swelling, itching, depression bupropion HCl AdvReac Intermediate visual Unverified 09/13/18 13:59 [From Wellbutrin] disturbances latex AdvReac Intermediate Skin Rash Unverified 09/13/18 13:59 walnut Allergy Severe swelling Uncoded 09/13/18 13:59 tongue and throat General Stated Complaint: Sorethroat SUJATA: 4 Review of Systems Review of Systems All systems reviewed & are unremarkable except as noted in HPI and below Constitutional Reports fever(s) ENT Reports as per HPI and Denies hoarseness Respiratory Denies cough PFSH Medical History B-complex deficiency (Chronic) Depression Dry eye syndrome Dysphagia (Chronic) Endometritis Fibromyalgia Galactorrhea (Chronic) GERD (gastroesophageal reflux disease) (Chronic) Hiatal hernia (Chronic) Hydradenitis (Chronic) IBS (irritable bowel syndrome) (Chronic) Migraine Neuropathic pain (Chronic) Obesity Surgical History section Cholecystectomy Family History Other Hydradenitis Ingrown hair Social History Smoking/Tobacco Use Status: Never Drug use: Never Substance use type: does not use Do you feel safe in your relationship?: Yes Exam Const General: cooperative and no acute distress HENMT Head: normocephalic Ears: EAC's normal and TM abnormal bulging bilaterally; not erythematous and with no fluid behind the TM Mouth: moist mucous membranes Throat: uvula midline, abnormal tonsil bilaterally hypertrophy, no peritonsillar masses and posterior oropharynx abnormal erythema and exudates Other: No trismus Eyes Conjunctivae: normal conjunctivae Sclera: normal sclerae Neck Neck: trachea midline and supple Resp Auscultation: clear to auscultation bilaterally, no rales, no rhonchi and no wheezes Cardio Jugular venous pressure: no JVD Rate: tachycardic Rhythm: regular rhythm Skin General skin exam: no rashes or lesions noted Neuro General: alert, awake and tone normal Extrem General: no edema Course Vital Signs Temperature 36.8 C 05/04/19 11:17 Pulse 122 H 05/04/19 11:17 Respiratory Rate 18 05/04/19 11:17 Blood Pressure 130/65 05/04/19 11:17 Pulse Oximetry 98 05/04/19 11:17 Temperature 36.8 C 05/04/19 11:17 Temperature Source Oral 05/04/19 11:17 Pulse 122 H 05/04/19 11:17 Respiratory Rate 18 05/04/19 11:17 Respiratory Effort Non-Labored 05/04/19 11:31 Blood Pressure 130/65 05/04/19 11:17 Blood Pressure Position Supine 05/04/19 11:17 Pulse Oximetry 98 05/04/19 11:17 Oxygen Delivery Method Room Air 05/04/19 11:17 Oxygen Flow Rate 0 05/04/19 11:17 Pain Level 8 05/04/19 11:17 Comment 05/04/19 11:17
[2019-05-04] MEDS: Dexamethasone 10 MG/ML VIAL PO (12:31)
[2019-05-04] MEDS: Acetaminophen 325 MG TAB 650 MG PO (12:31)
[2019-05-04 13:49] VITALS: PULSE 102
[2019-05-04 14:00] VITALS: BP 146/80; PULSE 104; RESP 18; O2SAT 97
== END 2019-05-04 14:00 | disposition home or self-care (01) ==
PROVIDERS: Emergency Provider Student in an Organized Health Care Education/Training Program; PCP Family Medicine
DX: J02.9 Acute pharyngitis, unspecified (principal); R50.9 Fever, unspecified
CPT/HCPCS: 87880; 99283; 87081; J1100

== ENCOUNTER 2019-05-23 11:23 | Outpatient (REF) | payer OTHER, SELFPAY | END 2019-05-23 11:43 | LOC: NCHCN 11:23 | PROVIDERS: PCP Family Medicine; Visit Provider Family Medicine | DX: J02.9 Acute pharyngitis, unspecified (principal); R09.81 Nasal congestion | CPT/HCPCS: 87070 ==

== ENCOUNTER 2019-08-11 16:19 | Emergency (ER) | payer OTHER, SELFPAY ==
[2019-08-11 16:25] VITALS: BP 151/94; PULSE 87; RESP 16; TEMP 36.5; O2SAT 99
--- NOTE | 2019-08-11 16:32 | DI.RAD_ITS ---
EXAM: XR KNEE LT 3V AP,LAT,KENDRA INDICATION: tibial plateau pain. COMPARISON: No exams were available for comparison TECHNIQUE: 2D digital imaging was performed. FINDINGS: No acute fracture or dislocation is identified. The soft tissues are unremarkable. IMPRESSION: No acute abnormality. If symptoms persist, a follow-up examination in 7-10 days may be obtained for re-evaluation.
--- NOTE | 2019-08-11 16:33 | W.ED.GENAD ---
Discharge Plan Disposition Patient Disposition: HOME Condition: Stable Discharge Details Chief Complaint: Orthopedic Clinical Impression: Contusion of knee, left Primary Care Provider: Nicky Brewster V ED Provider: Fred Armendariz Home Meds and New Rx's Prescriptions: Continued tramadol 50 mg tablet 50 mg PO Q6H PRNRF: 0 citalopram 10 MG tablet 10 mg PO PRN PRNRF: 0 sucralfate [Carafate] 1 GM tablet 1 g PO PRN PRNRF: 0 Mirena 1 EACH intrauterine device 1 ea Intrauterine ONCE Qty: 1 RF: 0 Mirena 20 mcg/24 hr (5 years) intrauterine device 1 insert IY ONCE RF: 0 hydroxychloroquine 200 MG tablet 400 mg PO DAILY RF: 0 Vitamin B-12 1,000 MCG/ML drops 1,000 mcg IM DIRECTED RF: 0 ergocalciferol (vitamin D2) [Vitamin D2] 50,000 UNITS capsule 1 tab PO DIRECTED RF: 0 cetirizine 10 MG tablet 10 mg PO DAILY RF: 0 epinephrine [EpiPen 2-Don] 0.3 MG/0.3 ML auto-injector 0.3 mg IJ PRN PRNQty: 1 RF: 0 Discharge Instructions Instructions: Contusion in Adults (ED) Additional Instructions: Ice to area to reduce discomfort Vinayak bandage as needed for comfort, remove at bedtime. Return for persistent pain at 7 to 10 days time.. May use Tylenol and/or ibuprofen as needed for discomfort. Follow-up with regular doctor for routine care. Medical Decision Making 39-year-old female who tripped and fell at work, striking her knee on hard object. Now has proximal tibia pain on the left. She is well-appearing, mildly hypertensive. Ice is placed, patient referred for x-ray. No evidence of bony fracture. Will treat with compression bandage. She understands indications for return/follow-up. She stable for discharge to home. HPI General Mode of arrival: ambulatory. Date/Time Provider Initiated Documentation: 08/11/19 16:22. Limitations to Documentation: no limitations. Information obtained by: patient. History of Present Illness 39 year old F presents to the emergency department with the chief complaint of Left knee injury, described as moderate, Quality is described as aching and dull, and is localized to the left and lower extremity. Patient reports no radiation. Patient started experiencing this hour(s) and it has been constant. No relieving factors improve symptom(s), Movement worsens symptoms . Patient notes no other symptoms.. Patient did receive the following treatments prior to arrival, other (Vinayak bandage) Related Data Home Medications Medication Instructions Recorded Confirmed Vitamin B-12 1,000 mcg IM DIRECTED 02/10/14 08/11/19 hydroxychloroquine 400 mg PO DAILY 02/10/14 08/11/19 ergocalciferol (vitamin D2) 1 tab PO DIRECTED 06/22/14 08/11/19 [Vitamin D2] cetirizine 10 mg PO DAILY 01/20/15 08/11/19 epinephrine [EpiPen 2-Don] 0.3 mg IJ PRN PRN #1 ml 01/21/15 08/11/19 citalopram 10 mg PO PRN PRN tab-cap 12/01/16 08/11/19 sucralfate [Carafate] 1 g PO PRN PRN tab-cap 12/01/16 08/11/19 Mirena 1 ea INTRAUTERINE ONCE #1 implant 06/26/17 08/11/19 levonorgestrel 20 mcg/24 hours (5 1 insert IY ONCE 09/18/18 08/11/19 yrs) 52 mg intrauterine device tramadol 50 mg tablet 50 mg PO Q6H PRN 01/13/19 08/11/19 Previous Rx's Medication Instructions Recorded epinephrine [EpiPen 2-Don] 0.3 mg IJ PRN PRN #1 ml 01/21/15 Allergies Allergy/AdvReac Type Severity Reaction Status Date / Time apricot Allergy Severe swelling Unverified 08/11/19 16:27 of lips and throat cholestyramine Allergy Severe sores in Unverified 08/11/19 16:27 [From Questran] mouth and throat ibuprofen Allergy Severe high dose Unverified 08/11/19 16:27 causes extreme swelling peach Allergy Severe swelling Unverified 08/11/19 16:27 lips and throat sucrose [From Questran] Allergy Severe sores in Unverified 08/11/19 16:27 mouth and throat tree nut Allergy Severe Unverified 08/11/19 16:27 banana Allergy Intermediate Unverified 08/11/19 16:27 ivermectin Allergy Intermediate leukocytoclastic Unverified 08/11/19 16:27 vasculitis penicillamine Allergy Intermediate hives,swell Unverified 08/11/19 16:27 ing Penicillins Allergy Intermediate hives, Unverified 08/11/19 16:27 swelling venlafaxine HCl Allergy Intermediate UNKNOWN Unverified 08/11/19 16:27 [From Effexor] doxycycline Allergy Mild I don't Unverified 08/11/19 16:27 tolerate it montelukast sodium AdvReac Severe facial Unverified 08/11/19 16:27 [From Singulair] swelling, itching, depression bupropion HCl AdvReac Intermediate visual Unverified 08/11/19 16:27 [From Wellbutrin] disturbances latex AdvReac Intermediate Skin Rash Unverified 08/11/19 16:27 walnut Allergy Severe swelling Uncoded 08/11/19 16:27 tongue and throat General Stated Complaint: Orthopedic SUJATA: 4 Review of Systems Narrative: 6 systems reviewed and otherwise negative. No numbness or tingling. No denies other injury. Has otherwise recently been well [facility] Medical History B-complex deficiency (Chronic) Depression Dry eye syndrome Dysphagia (Chronic) Endometritis Fibromyalgia Galactorrhea (Chronic) GERD (gastroesophageal reflux disease) (Chronic) Hiatal hernia (Chronic) Hydradenitis (Chronic) IBS (irritable bowel syndrome) (Chronic) Migraine Neuropathic pain (Chronic) Obesity Family History Other Hydradenitis Ingrown hair Social History Smoking/Tobacco Use Status: Never Drug use: Never Substance use type: does not use Do you feel safe in your relationship?: Yes Exam Narrative Exam Narrative: GEN: awake, alert, oriented 3. Pleasant, well groomed, interactive. HEAD: Normocephalic, atraumatic ENT: Mucous membranes moist, oropharynx unremarkable, External ear exam unremarkable EYES: PERRL, EOMI EXT: Pelvis not tender to rock. Full ROM, but limited at left knee. Left proximal tibia medial aspect tender to palpation. No joint laxity or discomfort with stress. No edema, no rash Neuro: Grossly normal neurologic exam, conversant, interactive. Psych: Speech fluent, thoughts congruent, affect normal Course Vital Signs Vital signs: Vital Signs Temperature 36.5 C 08/11/19 16:25 Pulse 87 08/11/19 16:25 Respiratory Rate 16 08/11/19 16:25 Blood Pressure 151/94 H 08/11/19 16:25 Pulse Oximetry 99 08/11/19 16:25 Temperature 36.5 C 08/11/19 16:25 Temperature Source Skin 08/11/19 16:25 Pulse 87 08/11/19 16:25 Respiratory Rate 16 08/11/19 16:25 Respiratory Effort 08/11/19 16:25 Blood Pressure 151/94 H 08/11/19 16:25 Blood Pressure Position Sitting 08/11/19 16:25 Pulse Oximetry 99 08/11/19 16:25 Oxygen Delivery Method Room Air 08/11/19 16:25 Oxygen Flow Rate 0 08/11/19 16:25 Pain Level 7 08/11/19 16:25
--- NOTE | 2019-08-11 17:00 | DI.VRAD_ITS ---
PROCEDURE INFORMATION: Exam: XR Left Knee Exam date and time: 08/11/2019 4:33 PM Clinical history: 39 years old, female; Pain; Knee; Left TECHNIQUE: Imaging protocol: XR Left knee. Views: 3 views. COMPARISON: No relevant prior studies available. FINDINGS: Bones/joints: Unremarkable. Soft tissues: Unremarkable. IMPRESSION: No evidence for acute bony injury. If clinical symptoms persist recommend followup film in 7-10 days. Dictated and Authenticated by: Asha Price MD. Ordering:JEREMY Ibarra MD
[2019-08-11 17:08] VITALS: BP 120/67; PULSE 83; TEMP 36.5; O2SAT 98
== END 2019-08-11 17:15 | disposition home or self-care (01) ==
PROVIDERS: Emergency Provider Emergency Medicine; PCP Family Medicine
DX: S80.02XA Contusion of left knee, initial encounter (principal); W01.0XXA Fall on same level from slipping, tripping and stumbling without subsequent striking against object, initial encounter; Y99.0 Civilian activity done for income or pay
CPT/HCPCS: 73562; 99283; 99282

== ENCOUNTER 2019-08-27 08:09 | Outpatient (CLI) | payer OTHER, SELFPAY ==
--- NOTE | 2019-08-27 09:35 | DI.MRI_ITS ---
EXAM: MR LOWER JOINT LT WO CLINICAL HISTORY: LT KNEE PAIN, M25.562,fell 08/03/19 TECHNIQUE: Multiplanar multisequence MRI was performed. COMPARISON: MRI L LOWER JOINT WO CONT from 01/12/2011 FINDINGS: The study is limited due to patient body habitus. The anterior cruciate and posterior cruciate ligaments are intact. The medial and lateral collateral ligaments are intact. The extensor mechanism and medial lateral retinaculum are intact. There is no evidence of a meniscal tear. Marrow signal is within normal limits. No evidence of an occult fracture or avascular necrosis. The articular cartilage is well maintained. No significant joint effusion is seen. No soft tissue m ass or focal fluid collection is present. The muscles show normal signal and size. IMPRESSION: 1. Study limited due to patient body habitus. 2. No evidence of a meniscal or ligament tear. 3. No evidence of an occult fracture.
== END 2019-08-27 08:29 ==
PROVIDERS: PCP Family Medicine; Visit Provider Family Medicine
DX: M25.562 Pain in left knee (principal)
CPT/HCPCS: 73721

== ENCOUNTER 2019-08-27 11:15 | Outpatient (REF) | payer OTHER, SELFPAY ==
[2019-08-27 21:55] LABS: Calculated LDL 126 mg/dL; Cholesterol 179 mg/dL (50-200); Glucose 80 mg/dL (70-100); HDL Cholesterol 34 mg/dL (40-60); Triglyceride 95 mg/dL (30-150)
== END 2019-08-27 11:35 ==
LOC: NCHCN 11:15
PROVIDERS: PCP Family Medicine; Visit Provider Family Medicine
DX: Z00.00 Encounter for general adult medical examination without abnormal findings (principal)
CPT/HCPCS: 80061; 82947

== ENCOUNTER 2020-01-05 11:06 | Outpatient (CLI) | payer OTHER, SELFPAY ==
[2020-01-07 16:58] LABS: COVID-19 RT-PCR Result Undetected (Undetected)
== END 2020-01-05 11:26 ==
PROVIDERS: PCP Family Medicine; Visit Provider Family Medicine
DX: Z20.828 Contact with and (suspected) exposure to other viral communicable diseases (principal)
CPT/HCPCS: 87449; U0003

== ENCOUNTER 2020-01-09 10:40 | Outpatient (CLI) | payer OTHER, SELFPAY ==
--- NOTE | 2020-01-09 11:12 | DI.RAD_ITS ---
EXAM: XR CHEST 2V PA LATERAL CLINICAL HISTORY: SHORTNESS OF BREATH, R06.02 TECHNIQUE: 2D digital imaging was performed. COMPARISON: No exams were available for comparison FINDINGS: MEDIASTINUM: Normal. HEART: Normal. PULMONARY VASCULATURE: Normal. LUNGS: Clear. PLEURAL SPACE: No pleural effusion or pneumothorax. BONE:Normal. OTHER FINDINGS:Normal. IMPRESSION: No acute pulmonary findings. DATA REPOSITORY: RADIATION DOSE DELIVERED:
== END 2020-01-09 11:00 ==
PROVIDERS: PCP Family Medicine; Visit Provider Physician Assistant Medical
DX: R06.02 Shortness of breath (principal)
CPT/HCPCS: 71046

== ENCOUNTER 2020-08-31 08:19 | Outpatient (CLI) | payer MEDICAID, SELFPAY ==
--- NOTE | 2020-08-31 12:42 | DI.RAD_ITS ---
EXAM: XR CERVICAL SPINE COMP 4-5V CLINICAL HISTORY: RADICULOPATHY AFFECTING THE ARM,M54.12. TECHNIQUE: 2D digital imaging was performed. COMPARISON: No exams were available for comparison FINDINGS: BONES: No fracture or destructive lesion. Vertebral bodies are unremarkable. DISKS: Intervertebral disc spaces are maintained. ALIGNMENT: There is a mild left convex curvature of the cervical spine. This may be due to patient p ositioning. The odontoid and atlantoaxial articulations are normal. SOFT TISSUE: Normal. The lung apices are clear. IMPRESSION: There is a mild left convex curvature of the cervical spine. DATA REPOSITORY: RADIATION DOSE DELIVERED:
--- NOTE | 2020-08-31 12:42 | DI.RAD_ITS ---
EXAM: XR THORACIC SPINE COMPLETE CLINICAL HISTORY: RADICULOPATHY AFFECTING THE ARM,M54.12. TECHNIQUE: 2D digital imaging was performed. COMPARISON: CR XR CHEST 2V PA LATERAL from 01/09/2020 FINDINGS: BONES: There is no fracture or destructive lesion. The vertebral bodies and posterior elements are un remarkable. DISKS:There is a stable right convex thoracic scoliosis. Interverebral disc spaces are maintained. SOFT TISSUE: Visualized lungs are clear. IMPRESSION: Stable right convex thoracic scoliosis. DATA REPOSITORY: RADIATION DOSE DELIVERED:
== END 2020-08-31 08:39 ==
PROVIDERS: PCP Family Medicine; Visit Provider Family Medicine
DX: M41.9 Scoliosis, unspecified (principal); M54.12 Radiculopathy, cervical region
CPT/HCPCS: 72050; 72072

== ENCOUNTER 2020-10-06 00:23 | Outpatient (CLI) | payer MEDICAID, SELFPAY ==
--- NOTE | 2020-10-06 12:35 | DI.MAMMO_ITS ---
EXAM: MG MAMMO SCREENING CLINICAL HISTORY: SCREENING,[facility],Z00.00 TECHNIQUE: Bilateral full field digital CC and MLO mammographic images were obtained with 3D tomosyn thesis and utilizing computer aided detection (CAD). COMPARISON: Available for comparison. FINDINGS: Masses/Architectural Distortion: Bilateral well-circumscribed nodules. No suspicious masses. Microcalcifications: No suspicious pleomorphic-type are seen. Skin Thickening/Nipple Retraction: None. IMPRESSION: 1. No significant interval change with no specific features of malignancy noted. 2. Unless there is more urgent need, screening mammography is recommended, as per [place] [employer] guidelines. BI-RADS Category 1 - Negative Breast Density - Category B - Scattered areas of fibroglandular density Breast density category C or D implies that the patient has dense breast tissue. Dense breast tissue is very common and is not abnormal but dense breast tissue can make it harder to find cancer on a ma mmogram. Also, dense breast tissue may increase their breast cancer risk. This information about the result of the mammogram report was provided to the patient to raise their awareness. Use this report when you speak with the patient about their risks for breast cancer, which includes their family hist ory. At that time, you may recommend for more screening tests (Ultrasound or MRI) as they might be us eful based on their risk. A negative radiographic report should not delay biopsy if a dominant or clinically suspicious mass is present. Up to ten percent of cancers are not identified on mammography. A negative report may reinforce clinical impression. Adenosis and dense breasts may obscure an underlying neoplasm. False positive reports average 6 to 10%. Patient will receive a letter notifying them of these results.
== END 2020-10-06 00:43 ==
PROVIDERS: PCP Family Medicine; Visit Provider Family Medicine
DX: Z12.31 Encounter for screening mammogram for malignant neoplasm of breast (principal); Z00.00 Encounter for general adult medical examination without abnormal findings
CPT/HCPCS: 77063; 77067

== ENCOUNTER 2021-02-06 11:39 | Emergency (ER) | payer MEDICAID, SELFPAY ==
[2021-02-06] VITALS (7 sets, daily range): BP systolic 130–151; BP diastolic 65–89; PULSE 85–94; RESP 19–30; TEMP 36.2; O2SAT 97–100
--- NOTE | 2021-02-06 12:05 | ED.GENADUL_ITS ---
Discharge Plan Disposition Patient Disposition: HOME Condition: Good Discharge Details Clinical Impression: Abdominal pain, Hernia Primary Care Provider: Nicky Brewster V ED Provider: Antoine Barone Home Meds and New Rx's Prescriptions: Continued celecoxib [Celebrex] 200 mg capsule 200 mg PO DAILY RF: 0 duloxetine 20 mg capsule, delayed rel sprinkle 20 mg PO DAILY RF: 0 citalopram 10 MG tablet 10 mg PO PRN PRNRF: 0 sucralfate [Carafate] 1 GM tablet 1 g PO PRN PRNRF: 0 Mirena 20 mcg/24 hr (5 years) intrauterine device 1 insert IY ONCE RF: 0 ergocalciferol (vitamin D2) [Vitamin D2] 50,000 UNITS capsule 1 tab PO DIRECTED RF: 0 cetirizine 10 MG tablet 10 mg PO DAILY PRNRF: 0 epinephrine [EpiPen 2-Don] 0.3 MG/0.3 ML auto-injector 0.3 mg IJ PRN PRNQty: 1 RF: 0 Discharge Instructions Instructions: Abdominal Pain (ED) Additional Instructions: At this time the CT scan shows no evidence of concerning surgical abnormality in your abdomen. You do have the hernias, but these do not show evidence of strangulation or incarceration of the bowel. Please follow-up closely with Dr. Brandt. Drink plenty of fluids and stay well-hydrated. Take Tylenol as needed for pain. If you notice any worsening of your symptoms, or any new symptoms such as vomiting, diarrhea, fever, chills, shortness of breath, chest pain, numbness, weakness, or fainting , please return immediately to the emergency department for reevaluation. Please follow up with your primary care provider as soon as possible for reassessment and reevaluation. As always, it was a pleasure participating in your medical care today. Referrals: Nicky Brewster MD [Primary Care Provider] - Medical Decision Making 40-year-old female who presents today for evaluation of abdominal pain. Patient has a history of irritable bowel syndrome, intraadenitis suppurativa, depression, fibromyalgia, and a known ventral hernia for which she has been surgically evaluated for in the past, presents today for severe abdominal pain. Patient states that starting last night at 2 AM she had sudden severe pain associated with nausea and an episode of vomiting. She has not been able to eat since then. She describes the pain is in the epigastric region, worse with palpation or movement. She denies fever or chills. She denies diarrhea. No other complaints at this time Exam demonstrates notable epigastric tenderness, and extremely uncomfortable female. We will treat the patient's pain, get a CT scan, gently rehydrate, monitor closely and reassess 3:41 PM Patient doing well, symptoms notably really resolved. Laboratory work-up shows minimal white count of 13, no bandemia. CT scan shows no evidence of acute appendicitis or other infectious etiology. Electrolytes normal, lactate unremarkable. Urinalysis negative for infection. At this time CT scan has returned, and does show evidence of a supraumbilical fat-containing hernia, no evidence of strangulation of the bowel. There is also a fat-containing umbilical hernia otherwise unremarkable. She has a left adrenal nodule noted. No other acute process otherwise though. The left adrenal nodule is stable per radiology. At this time patient tolerated p.o. well with no complication. With the pain resolved and her work-up reassuring she does not show evidence of mesenteric ischemia, or other significant acute surgical pathology requiring emergent intervention. No clinical evidence of a strangulated hernia I did contact the surgeon on-call Dr. Mercedes and discussed the case with her. With the nonsurgical abdomen, the reassuring CT scan, she does to feel that the patient can be discharged with close follow-up. We will refer to close surgical follow- up with Dr. Brandt. Discussed red flags which to return. I have extensively reviewed the treatment plan and discharge instructions with the patient. I have addressed all patient concerns at this time. The patient was made aware of what symptoms to monitor for that would warrant a return to the emergency department. Discussed the plan with the patient, they demonstrate verbal understanding and agreement with our assessment and plan at this time. The documentation in this chart was dictated using [employer] dictation software. Please excuse any dictation errors. FINDINGS: Liver: Diffuse fat infiltration of the liver. Gallbladder and bile ducts: Prior cholecystectomy. Pancreas: Normal. No ductal dilation. Spleen: Normal. No splenomegaly. Adrenal glands: Left adrenal nodule measures 13 mm. No change from prior CT scan. Kidneys and ureters: Normal. No hydronephrosis. Stomach and bowel: No dilatation of small bowel loops. No bowel obstruction. Colonic diverticulosis. Appendix: The appendix is not visualized. Intraperitoneal space: Unremarkable. No free air. No significant fluid collection. Vasculature: Unremarkable. No abdominal aortic aneurysm. Lymph nodes: Unremarkable. No enlarged lymph nodes. Urinary bladder: No urinary bladder calculi. Reproductive: Midline uterus with IUD present in the endometrial canal. No adnexal mass. Bones/joints: Pars defects L5. No spondylolisthesis. Soft tissues: Midline fat containing hernia. Hernia defect measures 3.7 cm. Umbilical hernia containing fat. IMPRESSION: 1. Supraumbilical fat containing hernia. No evidence of bowel strangulation. 2. Fat containing umbilical hernia. 3. Diffuse fatty infiltration of the liver. 4. Stable left adrenal adenoma. Thank you for allowing us to participate in the care of your patient. Dictated and Authenticated by: Karsten Garcia MD 02/06/2021 2:05 PM Eastern Time ([place] & [place]) HPI General Date/Time Provider Initiated Documentation: 02/06/21 11:50 . HPI Narrative: 40-year-old female who presents today for evaluation of abdominal pain. Patient has a history of irritable bowel syndrome, intraadenitis suppurativa, depression, fibromyalgia, fibromyalgia and a known ventral hernia for which she has been surgically evaluated for in the past, presents today for severe abdominal pain. Patient states that starting last night at 2 AM she had sudden severe pain associated with nausea and an episode of vomiting. She has not been able to eat since then. She describes the pain is in the epigastric region, worse with palpation or movement. She denies fever or chills. She denies diarrhea. No other complaints at this time Related Data Home Medications Medication Instructions Recorded Confirmed ergocalciferol (vitamin D2) 1 tab PO DIRECTED 06/22/14 02/06/21 [Vitamin D2] cetirizine 10 mg PO DAILY PRN 01/20/15 02/06/21 epinephrine [EpiPen 2-Don] 0.3 mg IJ PRN PRN #1 ml 01/21/15 02/06/21 citalopram 10 mg PO PRN PRN tab-cap 12/01/16 02/06/21 sucralfate [Carafate] 1 g PO PRN PRN tab-cap 12/01/16 02/06/21 levonorgestrel 20 mcg/24 hours (6 1 insert IY ONCE 09/18/18 02/06/21 yrs) 52 mg intrauterine device celecoxib 200 mg capsule 200 mg PO DAILY 10/06/19 02/06/21 duloxetine 20 mg capsule,delayed 20 mg PO DAILY cap 10/06/19 02/06/21 release sprinkle Previous Rx's Medication Instructions Recorded epinephrine [EpiPen 2-Don] 0.3 mg IJ PRN PRN #1 ml 01/21/15 Allergies Allergy/AdvReac Type Severity Reaction Status Date / Time apricot Allergy Severe swelling Unverified 02/06/21 11:46 of lips and throat cholestyramine Allergy Severe sores in Unverified 02/06/21 11:46 [From Questran] mouth and throat ibuprofen Allergy Severe high dose Unverified 02/06/21 11:46 causes extreme swelling peach Allergy Severe swelling Unverified 02/06/21 11:46 lips and throat sucrose [From Questran] Allergy Severe sores in Unverified 02/06/21 11:46 mouth and throat tree nut Allergy Severe Unverified 02/06/21 11:46 banana Allergy Intermediate Unverified 02/06/21 11:46 ivermectin Allergy Intermediate leukocytoclastic Unverified 02/06/21 11:46 vasculitis penicillamine Allergy Intermediate hives,swell Unverified 02/06/21 11:46 ing Penicillins Allergy Intermediate hives, Unverified 02/06/21 11:46 swelling venlafaxine HCl Allergy Intermediate UNKNOWN Unverified 02/06/21 11:46 [From Effexor] doxycycline Allergy Mild I don't Unverified 02/06/21 11:46 tolerate it apple Allergy Swelling/Ed Unverified 02/06/21 11:47 chris montelukast sodium AdvReac Severe facial Unverified 02/06/21 11:46 [From Singulair] swelling, itching, depression bupropion HCl AdvReac Intermediate visual Unverified 02/06/21 11:46 [From Wellbutrin] disturbances latex AdvReac Intermediate Skin Rash Unverified 02/06/21 11:46 walnut Allergy Severe swelling Uncoded 02/06/21 11:46 tongue and throat General Stated Complaint: Abd Prob SUJATA: 2 Review of Systems All systems reviewed & are unremarkable except as noted in HPI and below [facility] Medical History (Updated 02/06/21 @ 15:43 by Antoine Barone DO) B-complex deficiency Depression Dry eye syndrome Dysphagia Endometritis Fibromyalgia Galactorrhea GERD (gastroesophageal reflux disease) Hiatal hernia Hydradenitis IBS (irritable bowel syndrome) Migraine Neuropathic pain Obesity Surgical History section Cholecystectomy 2006 Family History Other Hydradenitis Ingrown hair Social History Smoking/Tobacco Use Status: Never Smoking risk assessment performed?: Yes Drug use: Never Substance use type: does not use Current gender identity: female Do you feel safe in your relationship?: Yes Exam Narrative Exam Narrative: 1.Const: Well-nourished, Well-developed, appearing stated age 2.Eyes: PERRL, no conjunctival injection, and symmetrical lids. 3.ENT: Atraumatic external nose and ears. Moist MM. Neck: Symmetric, trachea midline, No thyromegaly. 4.CVS: +S1/S2, No murmurs or gallops. Peripheral pulses 2+ and equal in all extremities. Brisk capillary refill in all extremities. 5.RESP: Unlabored respiratory effort. Clear to auscultation bilaterally. No wheezes rales or rhonchi 6.: Nondistended, notable epigastric tenderness mass in the epigastric region but otherwise soft in that area as well. Concerning for ventral herniation. No pain in the right lower quadrant tenderness. 7.MSK: Normocephalic/Atraumatic, Extremities w/o deformity or ttp No cyanosis or clubbing, Normal movement of all extremities 8.Skin: Warm, Dry. No rashes or lesions. 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 Sensation grossly intact, no focal neurologic deficits. 10.Psych: (AAO) x3. Appropriate mood and affect Course Vital Signs Vital signs: Vital Signs Temperature 36.2 C L 02/06/21 11:44 Pulse 94 H 02/06/21 11:44 Respiratory Rate 20 02/06/21 11:44 Blood Pressure 148/89 H 02/06/21 11:44 Pulse Oximetry 97 02/06/21 11:44 Temperature 36.2 C L 02/06/21 11:44 Temperature Source Skin 02/06/21 11:44 Pulse 94 H 02/06/21 11:44 Respiratory Rate 20 02/06/21 11:44 Blood Pressure 148/89 H 02/06/21 11:44 Blood Pressure Position Sitting 02/06/21 11:44 Pulse Oximetry 97 02/06/21 11:44 Oxygen Delivery Method Room Air 02/06/21 11:44 Oxygen Flow Rate 0 02/06/21 11:44 Pain Level 8 02/06/21 11:44
[2021-02-06] MEDS: HYDROmorphone 2 MG/ML VIAL 1 MG IVP (12:18)
[2021-02-06] MEDS: Normal Saline 500 ML IV (12:19)
[2021-02-06 12:20] LABS: Lactate 1.5 mmol/L (0.6-1.4)
[2021-02-06 12:21] LABS: Abs Immature Grans 0.07 10^3/uL (0.0-0.06); Absolute Basophil Count 0.04 10^3/uL (0.0-0.2); Absolute Monocyte Count 0.63 10^3/uL (0.1-0.8); Absolute Neutrophil Count 8.56 10^3/uL (1.2-6.7); Basophils % 0.3; Eosinophils % 1.4; HCT 42.7 % (36.0-46.0); HGB 13.6 g/dL (11.2-15.7); Immature Grans % 0.5; Lymphocytes % 28.2; MCH 27.9 pg (27.0-33.0); MCHC 31.9 % (32.0-36.0); MCV 87.7 fL (80-95); MPV 8.9 fL (8.0-11.0); Monocytes % 4.8; Neutrophils % 64.8; Nucleated RBC 0 %; Platelet Count 354 10^3/uL (130-400); RBC 4.87 10^6/uL (3.93-5.22); RDW 14.8 % (11.7-14.6); RDW-SD 47.8 fL; WBC 13.21 10^3/uL (4.4-10.8)
[2021-02-06 12:22] LABS: Absolute Eosinophil Count 0.18 10^3/uL (0.0-0.7); Absolute Lymphocyte Count 3.73 10^3/uL (1.2-3.4)
[2021-02-06 12:35] LABS: ALT 21 U/L (14-59); AST 10 U/L (15-37); Albumin 3.4 g/dL (3.4-5.0); Alkaline Phosphatase 132 U/L (46-116); BUN 10 mg/dL (7-18); Bilirubin, Total 0.2 mg/dL (0.2-1.0); CREATININE 0.8 mg/dL (0.55-1.02); Calcium 9.2 mg/dL (8.5-10.1); Chloride 106 mmol/L (98-107); Glucose 126 mg/dL (74-106); Lipase 60 U/L (73-393); Potassium 4.4 mmol/L (3.5-5.1); Sodium 143 mmol/L (136-145); Total Protein 7.7 g/dL (6.4-8.2)
[2021-02-06 12:41] LABS: HCG Quant, Pregnancy < 1 mIU/mL (1-3)
[2021-02-06] MEDS: Normal Saline - Diluent 50 ML VIAL IV (13:31)
--- NOTE | 2021-02-06 13:31 | DI.CT_ITS ---
EXAM: CT ABDOMEN PELVIS W CLINICAL HISTORY: mid abd pain, hernia, r/o strangulation. TECHNIQUE: Imaging Protocol: Axial computed tomography images with coronal and sagittal reformatted images were created and reviewed CONTRAST MATERIAL: Intravenous: Omnipaque 100cc Oral: None COMPARISON: CT CT ABDOMEN PELVIS W from 01/08/2019 FINDINGS: VISUALIZED LUNG BASES: The uppermost image of the study reveals A pleural based partially included no dular infiltrate left lower lobe measuring 7 x 6 millimeters. No pleural effusions. ABDOMEN: There is no ascites. LIVER: Hepatic steatosis. No discrete focal hepatic lesions identified. No dilatation of intrahepat ic ducts. GALLBLADDER/BILIARY: Gallbladder surgically absent. CBD is not dilated. PANCREAS: No evidence of pancreatic mass nor dilatation of the pancreatic duct. SPLEEN: Spleen is not enlarged. No obvious intrasplenic lesions. Splenic and portal veins are paten t. ADRENALS: There is a nodule in the left adrenal gland which measures 1.6 by 1.5 cm. Right adrenal gl and appears unremarkable. KIDNEYS:No cysts evident. No solid renal masses. No calculi nor hydronephrosis.. ABDOMINAL AORTA: Abdominal aorta is not enlarged. LYMPH NODES:There is no retroperitineal nor paraaortic adenopathy. ABDOMINAL WALL/GI: There is a midline supraumbilical anterior abdominal hernia with a wide neck. The hernia sac measures 6.5 cm wide by 3 centimetres AP by 6.5 cm cephalocaudal. This contains fat but no bowel loops. There is no bowel obstruction. Lower down there is a midline umbilical fat containi ng hernia which is smaller. Also contains no bowel loops. No bowel obstruction. PELVIS: GI: No evidence of appendicitis.No evidence of sigmoid diverticulitis. LYMPH NODES: There is no intrapelvic nor inguinal adenopathy. REPRODUCTIVE: There is an IUD in the uterus. Adnexal regions are age-appropriate. URINARY BLADDER: No calculi nor obvious masses evident OSSEOUS: No significant osseous lesions. IMPRESSION: 1. There is a 16 x 15 millimeter nodule in the left adrenal gland. Recommend follow-up noninfused MR I with in and out of phase chemical shift imaging in sequences to determine if this is a benign adeno ma or more concerning pathology. The opposite-right adrenal gland appears unremarkable. 2. There is an IUD in the uterus. No abnormal adnexal masses. 3. 6.5 x 6.5 x 3 centimetres midline supraumbilical anterior abdominal hernia. This wide neck hernia contains mesenteric fat and vessels but no bowel loops. There is no bowel obstruction. A smaller u mbilical fat containing hernia is also noted. 4. Gallbladder surgically absent. The biliary tree is not dilated. 5. Hepatic steatosis noted. No discrete focal hepatic lesions. RADIATION DOSE DELIVERED: 1,624.58mGy.cm Total DLP DATA REPOSITORY: All CT scans at this facility are submitted to the National Radiology Data Registry (NRDR) Dose Index Registry (DIR) with the [employer] (A[employer]). RADIATION OPTIMIZATION: All CT scans at this facility use at least one of these dose optimization te chniques: automated exposure control; mA and/or kV adjustment per patient size (includes targeted exa ms where dose is matched to clinical indication); or iterative reconstruction.
--- NOTE | 2021-02-06 14:05 | DI.VRAD_ITS ---
PROCEDURE INFORMATION: Exam: CT Abdomen And Pelvis With Contrast Exam date and time: 02/06/2021 1:21 PM Age: 40 years old Clinical indication: Abdominal pain; Generalized; Patient HX: Mid abd pain, hernia, R/O strangulation TECHNIQUE: Imaging protocol: Computed tomography of the abdomen and pelvis with contrast. Radiation optimization: All CT scans at this facility use at least one of these dose optimization techniques: automated exposure control; mA and/or kV adjustment per patient size (includes targeted exams where dose is matched to clinical indication); or iterative reconstruction. Contrast material: VISIPAQUE; Contrast volume: 100 ml; Contrast route: INTRAVENOUS (IV); COMPARISON: CT ABDOMEN PELVIS W 01/08/2019 11:01 AM FINDINGS: Liver: Diffuse fat infiltration of the liver. Gallbladder and bile ducts: Prior cholecystectomy. Pancreas: Normal. No ductal dilation. Spleen: Normal. No splenomegaly. Adrenal glands: Left adrenal nodule measures 13 mm. No change from prior CT scan. Kidneys and ureters: Normal. No hydronephrosis. Stomach and bowel: No dilatation of small bowel loops. No bowel obstruction. Colonic diverticulosis. Appendix: The appendix is not visualized. Intraperitoneal space: Unremarkable. No free air. No significant fluid collection. Vasculature: Unremarkable. No abdominal aortic aneurysm. Lymph nodes: Unremarkable. No enlarged lymph nodes. Urinary bladder: No urinary bladder calculi. Reproductive: Midline uterus with IUD present in the endometrial canal. No adnexal mass. Bones/joints: Pars defects L5. No spondylolisthesis. Soft tissues: Midline fat containing hernia. Hernia defect measures 3.7 cm. Umbilical hernia containing fat. IMPRESSION: 1. Supraumbilical fat containing hernia. No evidence of bowel strangulation. 2. Fat containing umbilical hernia. 3. Diffuse fatty infiltration of the liver. 4. Stable left adrenal adenoma. Dictated and Authenticated by: Karsten Garcia MD. Ordering:ROD Schultz MD
[2021-02-06] MEDS: ACETAMINOPHEN 1,000 MG/100 ML BTL 400 MG IVPB (14:19)
[2021-02-06 15:12] LABS: Bilirubin Negative (Negative); Blood Negative (Negative); Clarity Clear (Clear); Glucose Negative (Negative); Ketones Negative (Negative); Leukocyte Esterase Negative (Negative); Nitrite Negative (Negative); Specific Gravity 1.015 (1.005-1.025); Urobilinogen 0.2 EU/dL (Up TO 0.2)
== END 2021-02-06 15:55 | disposition home or self-care (01) ==
PROVIDERS: Emergency Provider Student in an Organized Health Care Education/Training Program; PCP Family Medicine
DX: K43.9 Ventral hernia without obstruction or gangrene (principal); R10.9 Unspecified abdominal pain
CPT/HCPCS: 80053; 83690; 96361; 96365; 96375; 99285; 74177; 81003; 83605; 84702; 85025; 99283; J0131

== ENCOUNTER 2021-09-18 14:16 | Emergency (ER) | payer BC, SELFPAY ==
[2021-09-18 14:21] VITALS: BP 157/70; PULSE 94; RESP 17; TEMP 36.4; O2SAT 99
--- NOTE | 2021-09-18 14:25 | W.ED.GENAD ---
Discharge Plan Disposition Patient Disposition: HOME Condition: Stable Discharge Details Clinical Impression: Labial abscess Primary Care Provider: Nicky Brewster V ED Provider: Lainey Guan Home Meds and New Rx's Prescriptions: New sulfamethoxazole-trimethoprim [Bactrim DS] 800-160 mg tablet 1 tab PO BID 10 Days Qty: 20 RF: 0 Continued duloxetine 20 mg capsule, delayed rel sprinkle 20 mg PO DAILY RF: 0 sucralfate [Carafate] 1 GM tablet 1 g PO PRN PRNRF: 0 Mirena 20 mcg/24 hr (5 years) intrauterine device 1 insert IY ONCE RF: 0 ergocalciferol (vitamin D2) [Vitamin D2] 50,000 UNITS capsule 1 tab PO DIRECTED RF: 0 cetirizine 10 MG tablet 10 mg PO DAILY PRNRF: 0 epinephrine [EpiPen 2-Don] 0.3 MG/0.3 ML auto-injector 0.3 mg IJ PRN PRNQty: 1 RF: 0 Discharge Instructions Instructions: Abscess (ED) Additional Instructions: Continue with sitz bath and warm compresses. Take antibiotics twice daily as directed. Please take Tylenol with food every 4-6 hours as needed for pain and swelling. Lab work shows no evidence for concerning abdominal pathology. Please follow-up with Dr. Thompson on Sunday as previously instructed. Referrals: Nicky Brewster MD [Primary Care Provider] - Tayler Thompson MD [ [facility] STAFF PHYSICIAN] - 09/20/21 Medical Decision Making <BOOKER Lopez - Last Filed: 09/18/21 17:02> Patient is a pleasant 41 year old female presenting today the [facility] c/c of labial swelling and pain. STates that this began a few days ago and feels similar to when she has had abscess historically. States that she has history of suppurativa hidradenitis. Has been using sitz baths without relief. Denies change in urinary or bowel habit changes. She states that she was recently treated at [facility] for migraine, has not had recurrence. On exam, patient appears non toxic. She has large, swollen left labia with area concerning for site of drainage. ARea is indurated. No focal area of fluctuance. Induration tracts toward the vaginal opening but non into the vagina. Area is 7x4cm. Consulted with Dr. Thompson who will evaluate ayana patient. Patient was evaluated by Dr. hTompson. Dr. Thompson attempted to drain the affected area. However, she was not able to find any significant possible fluid. She advised that she will see the patient in the office on Sunday. Recommended oral antibiotics. In particular, we discussed vaginal and Keflex. She also recommended that the patient continue with sitz bath's, heat or cool packs. When I reevaluated the patient after she was in with Dr. Thompson, she began worsening about her poison feeling. I was not made aware of this initially. She describes further as beating really rich food. States that this feels similar to when she had gallstones historically. However, patient had a cholecystectomy. She denies any vomiting but states that she has had some low-level nausea. States that the nausea has been ongoing since she was recently hospitalized for migraine. She states that the headache however is better. My exam of her abdomen, patient is generally tender. No focal area of discomfort. Pain is maximal in the epigastric region. She does have a history of acid reflux. Will give Mylanta for this. She denies any change in urinary habits. Had a normal bowel movement yesterday. We will hold off on CT imaging again, her exam is fairly nonfocal. Rather, will obtain baseline labs. If indicated, will move forward with CT. At the end of my shift, care transitioned to Lainey Guan NP. <Lainey Guan - Last Filed: 09/18/21 17:55> Care assumed from provider (BOOKER Russo) Please see their initial HPI, PE, and documentation. Discussed patient details and case and pending workup and disposition. Patient is hemodynamically stable, and alert and oriented. At this time we are awaiting labs. CBC shows a white blood cell count of 14.3, absolute neutrophils 9.08, absolute lymphocytes 4.07 CMP largely within normal limits glucose of 119 and an albumin of 3.0. Patient given Bactrim and instructions on keeping follow-up appointment with Dr. Thompson on Sunday. Instructed to continue sitz bath and warm compresses. This text was generated using [employer]ation system, please disregard any oddities of phrase or misspellings. HPI <BOOKER Lopez - Last Filed: 09/18/21 17:02> General Mode of arrival: ambulatory. Date/Time Provider Initiated Documentation: 09/18/21 14:25. Limitations to Documentation: no limitations. Information obtained by: patient and RN notes reviewed. History of Present Illness 41 year old F presents to the emergency department with the chief complaint of left sided labial pain and swelling, described as severe and similar to prior episodes, with intensity rated at 8. Quality is described as burning, and is localized to the genitals. Patient reports no radiation. Patient started experiencing this week(s) and it has been constant. other things that improve symptom(s), (pressure off of area) Movement worsens symptoms . Patient notes no other symptoms.. Patient did receive the following treatments prior to arrival, none Related Data Home Medications Medication Instructions Recorded Confirmed ergocalciferol (vitamin D2) 1 tab PO DIRECTED 06/22/14 09/18/21 [Vitamin D2] cetirizine 10 mg PO DAILY PRN 01/20/15 09/18/21 epinephrine [EpiPen 2-Don] 0.3 mg IJ PRN PRN #1 ml 01/21/15 09/18/21 sucralfate [Carafate] 1 g PO PRN PRN tab-cap 12/01/16 09/18/21 levonorgestrel 20 mcg/24 hours (7 1 insert IY ONCE 09/18/18 09/18/21 yrs) 52 mg intrauterine device duloxetine 20 mg capsule,delayed 20 mg PO DAILY cap 10/06/19 09/18/21 release sprinkle sulfamethoxazole-trimethoprim 1 tab PO BID 10 Days #20 tab 09/18/21 [Bactrim DS] Previous Rx's Medication Instructions Recorded epinephrine [EpiPen 2-Don] 0.3 mg IJ PRN PRN #1 ml 01/21/15 sulfamethoxazole-trimethoprim 1 tab PO BID 10 Days #20 tab 09/18/21 [Bactrim DS] Allergies Allergy/AdvReac Type Severity Reaction Status Date / Time apricot Allergy Severe swelling Unverified 09/18/21 14:31 of lips and throat cholestyramine Allergy Severe sores in Unverified 09/18/21 14:31 [From Questran] mouth and throat ibuprofen Allergy Severe high dose Unverified 09/18/21 14:31 causes extreme swelling peach Allergy Severe swelling Unverified 09/18/21 14:31 lips and throat sucrose [From Questran] Allergy Severe sores in Unverified 09/18/21 14:31 mouth and throat tree nut Allergy Severe Unverified 09/18/21 14:31 banana Allergy Intermediate Unverified 09/18/21 14:31 ivermectin Allergy Intermediate leukocytoclastic Unverified 09/18/21 14:31 vasculitis penicillamine Allergy Intermediate hives,swell Unverified 09/18/21 14:31 ing Penicillins Allergy Intermediate hives, Unverified 09/18/21 14:31 swelling venlafaxine HCl Allergy Intermediate UNKNOWN Unverified 09/18/21 14:31 [From Effexor] doxycycline Allergy Mild I don't Unverified 09/18/21 14:31 tolerate it apple Allergy Swelling/Ed Unverified 09/18/21 14:31 chris montelukast sodium AdvReac Severe facial Unverified 09/18/21 14:31 [From Singulair] swelling, itching, depression bupropion HCl AdvReac Intermediate visual Unverified 09/18/21 14:31 [From Wellbutrin] disturbances latex AdvReac Intermediate Skin Rash Unverified 09/18/21 14:31 walnut Allergy Severe swelling Uncoded 09/18/21 14:31 tongue and throat General Stated 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 Review of Systems <BOOKER Lopez - Last Filed: 09/18/21 17:02> Constitutional Constitutional: Reports as per HPI, Denies chills, Denies fatigue, Denies fever(s) and Denies headache(s) (recent migraine for which she saught care at [facility], denies DALAL now) ENT Ears, Nose, Mouth, and Throat: Denies headache(s) (recent migraine for which she saught care at [facility], denies DALAL now) Cardiovascular Cardiovascular: Reports as per HPI, Denies chest pain and Denies dyspnea Respiratory Respiratory: Reports as per HPI, Denies cough and Denies dyspnea Genitourinary Genitourinary: Reports as per HPI, Reports genital lesions, Denies dysuria, Denies flank pain, Denies urinary urgency, Denies vaginal discharge and Denies vaginal pruritus Integumentary/Breasts Skin/Breast: Reports as per HPI and Denies rash Neurologic Neurologic: Reports as per HPI and Denies headache(s) (recent migraine for which she saught care at [facility], denies DALAL now) Endocrine Endocrine: Denies fatigue PFSH <BOOKER Lopez - Last Filed: 09/18/21 17:02> Active Problem List History of rupture of uterus (Acute) History of section (Chronic) Polycystic ovarian syndrome (Acute) Advanced maternal age risk, currently not (Acute) Abdominal pain (Acute) Hernia (Chronic) Adrenal adenoma (Acute) Patellar tendonitis of left knee (Acute) Morbid obesity (Acute) Chronic fatigue (Acute) Snoring (Acute) Poor sleep (Acute) B-complex deficiency (Chronic) GERD (gastroesophageal reflux disease) (Chronic) Galactorrhea (Chronic) Hydradenitis (Chronic) IBS (irritable bowel syndrome) (Chronic) Neuropathic pain (Chronic) Dysphagia (Chronic) Hiatal hernia (Chronic) Screening for STD (sexually transmitted disease) (Acute 11/23/15) Migraine (Acute 03/05/15) Labial abscess (Acute 06/05/17) Fibromyalgia (Acute 03/05/15) Endometritis (Acute 11/23/15) Dry eye (Acute 03/05/15) Depression (Acute 03/05/15) BMI 45.0-49.9, adult (Acute 03/05/15) Surgical History section Family History Other Hydradenitis Ingrown hair Social History Smoking/Tobacco Use Status: Never Smoking risk assessment performed?: Yes Drug use: Never Substance use type: does not use Current gender identity: female Do you feel safe at home: Yes Do you feel safe in your relationship?: Yes Exam <BOOKER Lopez - Last Filed: 09/18/21 17:02> Const General: cooperative, healthy appearing, uncomfortable (preferring to stand so that pressure is releaved from labia), no acute distress and well developed Nutritional Appearance: well nourished and obese Orientation: alert and awake HENNM Head: normal to inspection Mouth: moist mucous membranes Eyes General: appearance normal, both eyes and all related structures Pupils: PERRL EOM: EOM intact bilaterally Neck Neck: normal visual inspection, no lymphadenopathy and no meningeal signs Resp Effort & Inspection: normal respiratory effort, able to speak in complete sentences and no respiratory distress Auscultation: clear to auscultation bilaterally, no rales, no rhonchi and no wheezes Cardio Rate: regular rate Rhythm: regular rhythm Heart Sounds: S1 normal and S2 normal GI Inspection: normal to inspection, no edema and non-distended Palpation: soft, no hepatosplenomegaly, not firm, no guarding, not rigid and tender (diffusely tender, no focal tenderness. Inidcates epigastric as maximal pain) Bland's sign negative and with no rebound tenderness Percussion: normal to percussion Auscultation: normal bowel sounds Back/Spine/Pelvis Back: no CVA tenderness Skin General skin exam: induration Neuro General: patient alert and patient awake Cognition: normal cognition Speech: speech normal Gait: normal gait Psych Appearance: grossly normal and well kempt Mental Status: mental status grossly normal Speech and Movement: speech and movement normal Course <BOOKER Lopez Last Filed: 09/18/21 17:02> Vital Signs Vital signs: Vital Signs Temperature 36.4 C L 09/18/21 14:21 Pulse 94 H 09/18/21 14:21 Respiratory Rate 17 09/18/21 14:21 Blood Pressure 157/70 H 09/18/21 14:21 Pulse Oximetry 99 09/18/21 14:21 Temperature 36.4 C L 09/18/21 14:21 Temperature Source Temporal Artery Scan 09/18/21 14:21 Pulse 94 H 09/18/21 14:21 Respiratory Rate 17 09/18/21 14:21 Blood Pressure 157/70 H 09/18/21 14:21 Blood Pressure Position Sitting 09/18/21 14:21 Pulse Oximetry 99 09/18/21 14:21 Oxygen Delivery Method Room Air 09/18/21 14:21 Oxygen Flow Rate 0 09/18/21 14:21 Pain Level 8 09/18/21 14:21 Sign Out <BOOKER Lopez Filed: 09/18/21 17:02> Sign Out Data: Sign Out Comment: Care transition to Melanie Canas NP. Patient was initially here for swollen left labia. Was evaluated by Dr. Thompson. She advised Keflex and Bactrim the time of discharge. She did attempt drainage but no purulent discharge was noted, area with indurated. Patient is now reporting that she has generalized abdominal discomfort which she has in the past few days to being treated for migraine. Nurses nausea. On exam, patient was muscular in epigastric region. Labs are pending. She was given Zofran and Mylanta symptomatic management. Patient will need reassessment. I did hold off on any imaging at this time pending lab as the pain was fairly diffuse and nonfocal. Surgical history pertinent for cholecystectomy Last updated by Sena Carrillo PA at 09/18/21 16:18
[2021-09-18] MEDS: Lidocaine 4% Cream 5 GM TUBE TP (14:51)
[2021-09-18] MEDS: Acetaminophen 500 MG TAB 1000 MG PO (14:51)
[2021-09-18] MEDS: Lidocaine 1% Multi-Dose 50 ML VIAL (15:23)
--- NOTE | 2021-09-18 15:40 | W.GYNCONSULT ---
Date of service: 09/18/21 Time of Service: 15:40 Assessment and Plan Assessment and plan (1) Polycystic ovarian syndrome: Status: Acute (2) Hydradenitis: Status: Chronic (3) Labial abscess: Status: Acute Assessment and plan: 48 hours of pain swelling. No purulent material obtained after incision and probing. She will begin on antibiotics and follow-up in the office in 48 hours for assessment of the site. She is agreeable to the plan. History of Present Illness History of Present Illness Chief Complaint: Painful swollen labia Narrative: Patient reports several days of malaise, headache without fever and then developing painfully swollen left labia in the past 48 hours. There is some serosanguineous drainage from site but no kristen pus. She reports being given a diagnosis hidradenitis suppurativa in the past and having excision of a abscess track along her left crural fold. No trauma to the area nor any recent instrumentation. Consults Consult date: 09/18/21 Review of Systems Constitutional Constitutional: Reports headache(s) (Migraines with aura) and Reports malaise (Just not feeling right) ENT Ears, Nose, Mouth, and Throat: Reports headache(s) (Migraines with aura) Respiratory Respiratory: Reports system reviewed and no additional complaints, except as documented Genitourinary Genitourinary: Reports genital lesions (As noted above), Reports dysuria (Burning on her left labia) and Reports vaginal discharge Integumentary/Breasts Skin/Breast: Reports lesions (Left labia, no vaginal complaints) Neurologic Neurologic: Reports headache(s) (Migraines with aura) Psychiatric Psychiatric: Reports anxiety [facility] Active Problem List (Updated 07/08/21 @ 14:16 by Stacey Canas DO) History of rupture of uterus (Acute) History of section (Chronic) Polycystic ovarian syndrome (Acute) Advanced maternal age risk, currently not (Acute) Abdominal pain (Acute) Hernia (Chronic) Adrenal adenoma (Acute) Patellar tendonitis of left knee (Acute) Morbid obesity (Acute) Chronic fatigue (Acute) Snoring (Acute) Poor sleep (Acute) B-complex deficiency (Chronic) GERD (gastroesophageal reflux disease) (Chronic) Galactorrhea (Chronic) Hydradenitis (Chronic) IBS (irritable bowel syndrome) (Chronic) Neuropathic pain (Chronic) Dysphagia (Chronic) Hiatal hernia (Chronic) Screening for STD (sexually transmitted disease) (Acute 11/23/15) Migraine (Acute 03/05/15) Labial abscess (Acute 06/05/17) Fibromyalgia (Acute 03/05/15) Endometritis (Acute 11/23/15) Dry eye (Acute 03/05/15) Depression (Acute 03/05/15) BMI 45.0-49.9, adult (Acute 03/05/15) Surgical History (Updated 07/08/21 @ 14:16 by Stacey Canas DO) section Family History Other Hydradenitis Ingrown hair Social History Smoking/Tobacco Use Status: Never Smoking risk assessment performed?: Yes Drug use: Never Substance use type: does not use Current gender identity: female Do you feel safe at home: Yes Do you feel safe in your relationship?: Yes Exam Const General: ill appearing Nutritional Appearance: obese Orientation: alert, awake and oriented x3 Resp Effort & Inspection: normal respiratory effort (Patient wearing facemask during the encounter) General: bladder normal to palpation External Female Exam: externally tender on the left, external swelling (Left labia indurated with punctate area of necrosis medial & distal) and lesion (Left labia, punctate 2 mm area of necrosis at the base of induration) Speculum Exam - Vagina: normal vaginal discharge Bimanual Exam- Vagina & Uterus: normal palpation and bladder normal to palpation Female genitals images: 1. Induration mild erythema involving the entire left labia. No focal masses appreciated the area was cleansed infiltrated with 1% lidocaine without epinephrine and a stab incision was made with a #11 blade with only blood returned. No purulent material the incision was probed with a sterile snap forcep and no pockets of purulence were located. Area was dressed with a dry sterile dressing no packing was performed Skin General skin exam: erythema (As noted above) Rashes: no rashes Psych Appearance: grossly normal Mental Status: mental status grossly normal Speech and Movement: speech and movement normal Mood: congruent mood Results Last Vital Signs Temp 97.5 F L 09/18/21 14:21 Pulse 94 H 09/18/21 14:21 Resp 17 09/18/21 14:21 BP 157/70 H 09/18/21 14:21 Pulse Ox 99 09/18/21 14:21
[2021-09-18] MEDS: Normal Saline 1,000 ML 500 ML IV (16:10)
[2021-09-18 16:12] LABS: Abs Immature Grans 0.04 10^3/uL (0.0-0.06); Absolute Basophil Count 0.03 10^3/uL (0.0-0.2); Absolute Eosinophil Count 0.21 10^3/uL (0.0-0.7); Absolute Lymphocyte Count 4.07 10^3/uL (1.2-3.4); Absolute Neutrophil Count 9.08 10^3/uL (1.2-6.7); Basophils % 0.2; Eosinophils % 1.5; HCT 39.7 % (36.0-46.0); HGB 12.5 g/dL (11.2-15.7); Immature Grans % 0.3; Lymphocytes % 28.6; MCH 27.5 pg (27.0-33.0); MCHC 31.5 % (32.0-36.0); MCV 87.3 fL (80-95); MPV 8.7 fL (8.0-11.0); Monocytes % 5.6; Neutrophils % 63.8; Nucleated RBC 0 %; Platelet Count 323 10^3/uL (130-400); RBC 4.55 10^6/uL (3.93-5.22); RDW 14.6 % (11.7-14.6); RDW-SD 46.5 fL; WBC 14.23 10^3/uL (4.4-10.8)
[2021-09-18] MEDS: Mylanta Suspension 30 ML CUP PO (16:14)
[2021-09-18] MEDS: Ondansetron 4 MG/2 ML VIAL IVP (16:14)
[2021-09-18 16:36] LABS: ALT 18 U/L (14-59); AST 10 U/L (15-37); Alkaline Phosphatase 111 U/L (46-116); BUN 9 mg/dL (7-18); Bilirubin, Total 0.3 mg/dL (0.2-1.0); CREATININE 0.7 mg/dL (0.55-1.02); Calcium 8.5 mg/dL (8.5-10.1); Chloride 103 mmol/L (98-107); Glucose 119 mg/dL (74-106); Magnesium 1.9 mg/dL (1.8-2.4); Potassium 3.7 mmol/L (3.5-5.1); Sodium 140 mmol/L (136-145); Total Protein 7.5 g/dL (6.4-8.2)
[2021-09-18 16:49] LABS: Lipase 38 U/L (73-393)
[2021-09-18 17:12] LABS: Bilirubin Negative (Negative); Blood Trace-intact (Negative); Clarity Clear (Clear); Glucose Negative (Negative); Ketones Negative (Negative); Leukocyte Esterase Negative (Negative); Nitrite Negative (Negative); Specific Gravity 1.025 (1.005-1.025); Urobilinogen 0.2 EU/dL (Up TO 0.2); pH 5.5 (5-8)
[2021-09-18 17:15] LABS: Bacteria Negative HPF (Negative); C & S Indicated? No; Casts Negative LPF (Negative); Crystals Negative HPF (Negative); Epithelial Cells Negative HPF (Negative); Mucus Negative (Negative); Other Cells Negative (Negative); RBC 0-2 HPF (0-2); WBC Negative HPF (0-5)
[2021-09-18] MEDS: Sulfameth/Trimeth DS TAB 1 TAB PO (17:23)
== END 2021-09-18 17:47 | disposition home or self-care (01) ==
PROVIDERS: Physician Assistant; Emergency Provider Registered Nurse Emergency; PCP Family Medicine
DX: N76.4 Abscess of vulva (principal); R10.13 Epigastric pain; L73.2 Hidradenitis suppurativa
CPT/HCPCS: 36415; 56405; 80053; 83690; 96361; 96374; 99284; 81003; 81015; 83735; 85025; 99283; J2405

== ENCOUNTER 2021-11-28 18:25 | Outpatient (REF) | payer BC, MEDICAID, SELFPAY ==
[2021-11-30 12:49] LABS: COVID-19 RT-PCR UVMMC Result Negative (Negative)
== END 2021-11-28 18:26 | disposition home or self-care (01) ==
LOC: LBN 18:25
PROVIDERS: PCP Family Medicine; Visit Provider Nurse Practitioner Family
DX: Z20.822 Contact with and (suspected) exposure to COVID-19 (principal); J06.9 Acute upper respiratory infection, unspecified
CPT/HCPCS: U0003

== ENCOUNTER 2021-11-28 18:59 | Outpatient (CLI) | payer BC, MEDICAID, SELFPAY ==
--- NOTE | 2021-11-28 | DI.RAD_ITS ---
Exam(s) XR CHEST 2V PA LATERAL EXAM: XR CHEST 2V PA LATERAL CLINICAL HISTORY: ACUTE COUGH,R05.1,CHEST DISCOMFORT,R07.89,RHINITIS,J31.0,INSPIRATORY WHEEZE. TECHNIQUE: 2D digital imaging was performed. COMPARISON: CR XR CHEST 2V PA LATERAL from 01/09/2020 FINDINGS: Heart size is normal. The mediastinum is not widened. Lungs are clear. No infiltrates nor pleural effusions. IMPRESSION: No acute pulmonary findings. DATA REPOSITORY: RADIATION DOSE DELIVERED:
== END 2021-11-28 19:19 ==
PROVIDERS: PCP Family Medicine; Visit Provider Nurse Practitioner Family
DX: R05.1 Acute cough (principal); R06.2 Wheezing; R07.89 Other chest pain
CPT/HCPCS: 71046

== ENCOUNTER 2021-12-02 18:52 | Outpatient (REF) | payer BC, MEDICAID, SELFPAY ==
[2021-12-04 12:03] LABS: COVID-19 RT-PCR UVMMC Result Negative (Negative)
== END 2021-12-02 18:53 | disposition home or self-care (01) ==
LOC: NCHCN 18:52
PROVIDERS: PCP Family Medicine; Visit Provider Nurse Practitioner Family
DX: Z20.822 Contact with and (suspected) exposure to COVID-19 (principal); R07.89 Other chest pain
CPT/HCPCS: U0003

== ENCOUNTER 2021-12-05 18:10 | Outpatient (REF) | payer BC, MEDICAID, SELFPAY ==
[2021-12-05 20:20] LABS: Hemoglobin A1C 9.1 % (<5.7)
== END 2021-12-05 18:11 | disposition home or self-care (01) ==
LOC: NCHCN 18:10
PROVIDERS: PCP Family Medicine; Visit Provider Nurse Practitioner Family
DX: Z00.00 Encounter for general adult medical examination without abnormal findings (principal); Z13.1 Encounter for screening for diabetes mellitus
CPT/HCPCS: 83036

== ENCOUNTER 2021-12-12 14:44 | Outpatient (REF) | payer BC, MEDICAID, SELFPAY | END 2021-12-12 14:45 | disposition home or self-care (01) | LOC: NCHCN 14:44 | PROVIDERS: PCP Family Medicine; Visit Provider Nurse Practitioner Family | DX: R35.0 Frequency of micturition (principal) | CPT/HCPCS: 87077; 87086; 87186 ==

== ENCOUNTER 2022-03-14 13:35 | Emergency (ER) | payer BC, MEDICAID, SELFPAY ==
[2022-03-14 13:44] VITALS: BP 154/93; PULSE 98; RESP 16; TEMP 36.6; O2SAT 97
[2022-03-14 14:25] VITALS: BP 126/56; PULSE 92; TEMP 36.8; O2SAT 96
--- NOTE | 2022-03-14 14:45 | DI.CT_ITS ---
Exam(s) CT ABDOMEN PELVIS WO EXAM: CT ABDOMEN PELVIS WO CLINICAL HISTORY: Abdominal pain N/V rule out bowel obstruction. TECHNIQUE: Imaging Protocol: Axial computed tomography images with coronal and sagittal reformatted images were created and reviewed CONTRAST MATERIAL: Intravenous: None (contrast contingent protocol ) Oral: None COMPARISON: CT CT ABDOMEN PELVIS W from 02/06/2021 FINDINGS: VISUALIZED LUNG BASES: No nodules nor pleural effusions evident. ABDOMEN: There is no ascites. LIVER: There is subtle hypodensities in the anterior aspect of the left hepatic lobe, not previously present. Difficult to assess without IV contrast but requires close follow-up. Similar findings not seen in the right lobe. GALLBLADDER/BILIARY: Gallbladder is again noted to be surgically absent. CBD is not dilated. PANCREAS: No evidence of pancreatic mass nor dilatation of the pancreatic duct. SPLEEN: Spleen is not enlarged. No obvious intrasplenic lesions. ADRENALS: There is an unchanged 1.6 x 1.5 cm nodule in the left adrenal gland which is probably an ad enoma. The opposite-right adrenal gland remains unremarkable. KIDNEYS:No cysts evident. No solid renal masses. No calculi nor hydronephrosis. . ABDOMINAL AORTA: Abdominal aorta is not enlarged. LYMPH NODES: There is no retroperitoneal nor paraaortic adenopathy. ABDOMINAL WALL: Again noted is a prominent fat containing anterior abdominal wall midline hernia whic h measures 8.6 cm wide by 4.2 cm AP by 7.7 cm craniocaudal. This has slightly further increased in s ize but again does not contain bowel loops within the wide hernia sac. Also no fluid in the hernia s ac.. Below this level is a midline umbilical fat only containing hernia. GI: There is no evidence of bowel obstruction, free air, nor abscess. PELVIS: LYMPH NODES: There is no intrapelvic nor inguinal adenopathy. GI: No evidence of appendicitis.No evidence of sigmoid diverticulitis. URINARY BLADDER: No calculi nor obvious masses evident REPRODUCTIVE: IUD is again noted in the uterus. Adnexal regions appear age-appropriate. OSSEOUS: No significant osseous lesions. Bilateral pars defects at L5 are noted. No prominent listhesis. No disc space narrowing. IMPRESSION: 1. The size of the previously described supraumbilical anterior abdominal hernia has further increase d. This fat containing midline-slightly left of midline hernia now measures 8.6 cm wide by 7.7 cm cr aniocaudal by 4.2 cm AP. It contains fat but no bowel loops nor fluid therein and there is no bowel obstruction evident. A smaller fat only containing midline umbilical hernia is seen below this level . 2. On this noninfused study there was some possibly concerning hypodensities in the liver which were not evident on the prior contrast infused study of 02/06/2021. Recommend follow-up contrast infused study. 3. Previously described 16 x 15 millimeter nodule in the left adrenal gland is unchanged from the ely or CT scan of January 2021 and therefore probably a benign adenoma. The opposite-right adrenal gland r emains unremarkable. 4. The gallbladder is again noted be surgically absent. CBD is not dilated. RADIATION DOSE DELIVERED: 1,581.25mGy.cm Total DLP DATA REPOSITORY: All CT scans at this facility are submitted to the National Radiology Data Registry (NRDR) Dose Index Registry (DIR) with the [employer] (A[employer]). RADIATION OPTIMIZATION: All CT scans at this facility use at least one of these dose optimization te chniques: automated exposure control; mA and/or kV adjustment per patient size (includes targeted exa ms where dose is matched to clinical indication); or iterative reconstruction.
[2022-03-14 15:13] LABS: Abs Immature Grans 0.05 10^3/uL (0.0-0.06); Absolute Basophil Count 0.02 10^3/uL (0.0-0.2); Absolute Eosinophil Count 0.49 10^3/uL (0.0-0.7); Absolute Monocyte Count 0.62 10^3/uL (0.1-0.8); Basophils % 0.2; Eosinophils % 4.3; HCT 40.3 % (36.0-46.0); Immature Grans % 0.4; MCH 28.2 pg (27.0-33.0); MCHC 32.3 % (32.0-36.0); MCV 87 fL (80-95); MPV 9.3 fL (8.0-11.0); Monocytes % 5.5; Neutrophils % 65.6; Platelet Count 355 10^3/uL (130-400); RBC 4.61 10^6/uL (3.93-5.22); RDW 13.9 % (11.7-14.6); RDW-SD 44.7 fL; WBC 11.31 10^3/uL (4.4-10.8)
--- NOTE | 2022-03-14 15:15 | ED.GENADUL_ITS ---
Discharge Plan Disposition Patient Disposition: HOME Condition: Stable Discharge Details Clinical Impression: Nausea vomiting and diarrhea, IBS (irritable bowel syndrome), Hypomagnesemia Primary Care Provider: Nicky Brewster V ED Provider: Lainey Guan Home Meds and New Rx's Prescriptions: Continued fluconazole [Diflucan] 100 mg tablet 100 mg PO .COMPLEX Qty: 2 0RF Rx Instructions: 100 mg PO now and in 72hrs if no relief.; duloxetine 20 mg capsule, delayed rel sprinkle 20 mg PO DAILY sucralfate [Carafate] 1 GM tablet 1 g PO PRN PRN Mirena 20 mcg/24 hr (5 years) intrauterine device 1 insert IY ONCE Label Comments: 09/13/2018; [id number], Exp 01/2021 ergocalciferol (vitamin D2) [Vitamin D2] 50,000 UNITS capsule 1 tab PO DIRECTED Rx Instructions: in winter only as per pt cetirizine 10 MG tablet 10 mg PO DAILY PRN epinephrine [EpiPen 2-Don] 0.3 MG/0.3 ML auto-injector 0.3 mg IJ PRN PRNQty: 1 0RF Label Comments: pt has not had to use this 01/23/16 buspirone 15 mg tablet 15 tab PO BID Discharge Instructions Instructions: Acute Nausea and Vomiting (ED), Hypomagnesemia (ED) Additional Instructions: Take the nausea medication up to 3 times daily as needed for nausea vomiting. At this time there is no significant abnormality noted on your CT. Please follow-up with your primary care provider regarding the adrenal adenoma. And the liver hypodensities. You may want to discuss the adrenal issue further with your PCP. Follow up with primary care provider in 3-5 days. Return to ED sooner if any worsening or concerns. Increase oral fluids. Please take Tylenol or Ibuprofen with food every 4-6 hours as needed for pain and swelling. Referrals: Nicky Brewster MD [Primary Care Provider] - 2 weeks Medical Decision Making 41-year-old female presents to the ER with chief complaint of headache, nausea, vomiting, and constipation. she reports on Sunday she woke with a headache on vomited. On Sunday she did not have any emesis but has some hard stool with stabbing abdominal pain. Yesterday she had worsening stabbing abdominal pain and some suprapubic pain. She also reports a pressure headache with her ears clogged. CBC, CMP, urinalysis, lipase, CT abdomen pelvis without contrast liter normal saline Zofran ordered. Differential diagnosis includes but not limited to IBS flare, gastroenteritis, small bowel obstruction, constipation, cholecystitis. Labs are largely unremarkable, mild leukocytosis with a white blood cell count 11.31 with neutrophils 7.42, glucose 179 magnesium low at 1 7, alk phos 119. CT shows possible enlarging hernia some hypodensities in the liver. No significant changes no bowel obstruction no evidence of sigmoid diverticulitis. CBD is not dilated. See official report. Patient given magnesium 4 mg p.o. here in department. Patient was given Zofran 4 mg ODT bottle to go x3. Discussed follow-up and strict return instructions. Medical Records Medical records reviewed: Yes I reviewed the patient's medical records. Imaging Data Radiologic Study: Imaging: CT Scan Radiologist's impression: IMPRESSION: 1. The size of the previously described supraumbilical anterior abdominal hernia has further increased. This fat containing midline-slightly left of midline hernia now measures 8.6 cm wide by 7.7 cm craniocaudal by 4.2 cm AP. It contains fat but no bowel loops nor fluid therein and there is no bowel obstruction evident. A smaller fat only containing midline umbilical hernia is seen below this level. 2. On this noninfused study there was some possibly concerning hypodensities in the liver which were not evident on the prior contrast infused study of 02/06/2021. Recommend follow-up contrast infused study. 3. Previously described 16 x 15 millimeter nodule in the left adrenal gland is unchanged from the prior CT scan of January 2021 and therefore probably a benign adenoma. The opposite-right adrenal gland remains unremarkable. 4. The gallbladder is again noted be surgically absent. CBD is not dilated. Lab Data Lab results reviewed: Yes I reviewed the patient's lab results. Labs: Laboratory Tests Range/Units 03/14/22 03/14/22 14:30 14:30 WBC (4.4-10.8) 10^3/uL 11.31 H RBC (3.93-5.22) 10^6/uL 4.61 Hgb (11.2-15.7) g/dL 13.0 Hct (36.0-46.0) % 40.3 MCV (80-95) fL 87 MCH (27.0-33.0) pg 28.2 MCHC (32.0-36.0) % 32.3 RDW (11.7-14.6) % 13.9 Plt Count (130-400) 10^3/uL 355 MPV (8.0-11.0) fL 9.3 Immature Gran % 0.4 Neutrophils % 65.6 Lymphocytes % 24.0 Monocytes % 5.5 Eosinophils % 4.3 Basophils % 0.2 Nucleated RBC % (0.0-0.3) % 0.0 Absolute Neutrophils (1.2-6.7) 10^3/uL 7.42 H Absolute Lymphocytes (1.2-3.4) 10^3/uL 2.71 Absolute Monocytes (0.1-0.8) 10^3/uL 0.62 Absolute Eosinophils (0.0-0.7) 10^3/uL 0.49 Absolute Basophils (0.0-0.2) 10^3/uL 0.02 Sodium (136-145) mmol/L 140 Potassium (3.5-5.1) mmol/L 4.0 Chloride (98-107) mmol/L 105 Carbon Dioxide (21.0-32.0) mmol/L 28.8 Anion Gap (3-11) mmol/L 6.2 BUN (7-18) mg/dL 12 Creatinine (0.55-1.02) mg/dL 0.7 Estimated GFR/1.73 m2 (mL/min/1.73m2) >= 60.00 Glucose (74-106) mg/dL 179 H Calcium (8.5-10.1) mg/dL 8.9 Magnesium (1.8-2.4) mg/dL 1.7 L Total Bilirubin (0.2-1.0) mg/dL 0.2 AST (15-37) U/L 12 L ALT (14-59) U/L 21 Alkaline Phosphatase (46-116) U/L 119 H Total Protein (6.4-8.2) g/dL 8.1 Albumin (3.4-5.0) g/dL 3.3 L Lipase (73-393) U/L 55 HPI General Mode of arrival: ambulatory . Date/Time Provider Initiated Documentation: 03/14/22 13:39 . Limitations to Documentation: no limitations . Information obtained by: patient, RN notes reviewed and old records reviewed . HPI Narrative: 41-year-old female presents to the ER with chief complaint of headache, nausea, vomiting, and constipation. she reports on Sunday she woke with a headache on vomited. On Sunday she did not have any emesis but has some hard stool with stabbing abdominal pain. Yesterday she had worsening stabbing abdominal pain and some suprapubic pain. She also reports a pressure headache with her ears clogged. She has a past medical history of PCOS IBS, fibromyalgia, adrenal adenoma, obesity, hernia, endometritis surgical history includes C-sections x2 Related Data Home Medications Medication Instructions Recorded Confirmed ergocalciferol (vitamin D2) 1,250 1 tab PO DIRECTED 06/22/14 03/14/22 mcg (50,000 unit) capsule (Vitamin D2) cetirizine 10 mg tablet 10 mg PO DAILY PRN 01/20/15 03/14/22 epinephrine 0.3 mg/0.3 mL 0.3 mg (0.3 mL) IJ PRN PRN #1 mL 01/21/15 03/14/22 injection, auto-injector (EpiPen 2-Don) sucralfate 1 gram tablet (Carafate) 1 g PO PRN PRN 12/01/16 03/14/22 levonorgestrel 20 mcg/24 hours (7 1 insert intrauterine ONCE 09/18/18 03/14/22 yrs) 52 mg intrauterine device (Mirena) duloxetine 20 mg capsule,delayed 20 mg PO DAILY 10/06/19 03/14/22 release sprinkle fluconazole 100 mg tablet 100 mg PO .COMPLEX #2 tabs 09/20/21 03/14/22 (Diflucan) buspirone 15 mg tablet 15 tab PO BID 03/14/22 03/14/22 Previous Rx's Medication Instructions Recorded epinephrine 0.3 mg/0.3 mL 0.3 mg (0.3 mL) IJ PRN PRN #1 mL 01/21/15 injection, auto-injector (EpiPen 2-Don) fluconazole 100 mg tablet 100 mg PO .COMPLEX #2 tabs 09/20/21 (Diflucan) Allergies Allergy/AdvReac Type Severity Reaction Status Date / Time apricot Allergy Severe swelling Unverified 03/14/22 13:47 of lips and throat cholestyramine Allergy Severe sores in Unverified 03/14/22 13:47 [From Questran] mouth and throat ibuprofen Allergy Severe high dose Unverified 03/14/22 13:47 causes extreme swelling peach Allergy Severe swelling Unverified 03/14/22 13:47 lips and throat sucrose [From Questran] Allergy Severe sores in Unverified 03/14/22 13:47 mouth and throat tree nut Allergy Severe Unverified 03/14/22 13:47 banana Allergy Intermediate Unverified 03/14/22 13:47 ivermectin Allergy Intermediate leukocytoclastic Unverified 03/14/22 13:47 vasculitis penicillamine Allergy Intermediate hives,swell Unverified 03/14/22 13:47 ing Penicillins Allergy Intermediate hives, Unverified 03/14/22 13:47 swelling venlafaxine HCl Allergy Intermediate UNKNOWN Unverified 03/14/22 13:47 [From Effexor] doxycycline Allergy Mild I don't Unverified 03/14/22 13:47 tolerate it sulfamethoxazole Allergy Mild macular Verified 03/14/22 13:47 [From Bactrim] rash trimethoprim [From Bactrim] Allergy Mild macular Verified 03/14/22 13:47 rash apple Allergy Swelling/Ed Unverified 03/14/22 13:47 chris montelukast sodium AdvReac Severe facial Unverified 03/14/22 13:47 [From Singulair] swelling, itching, depression bupropion HCl AdvReac Intermediate visual Unverified 03/14/22 13:47 [From Wellbutrin] disturbances latex AdvReac Intermediate Skin Rash Unverified 03/14/22 13:47 walnut Allergy Severe swelling Uncoded 03/14/22 13:47 tongue and throat General Stated Complaint: Nausea/Vomit/Diar SUJATA: 3 Review of Systems All systems reviewed & are unremarkable except as noted in HPI and below Constitutional Constitutional: Reports as per HPI, Reports fatigue and Reports headache(s) ENT Ears, Nose, Mouth, and Throat: Reports headache(s) Gastrointestinal Gastrointestinal: Reports abdominal pain, Reports constipation, Reports nausea and Reports vomiting Neurologic Neurologic: Reports headache(s) Endocrine Endocrine: Reports fatigue PFSH All Active Problems (Updated 03/14/22 @ 16:26 by Lainey Guan) Nausea vomiting and diarrhea (Acute) Hypomagnesemia (Acute) Skin rash (Acute) After beginning Bactrim DS for labial abscess. Patient was counseled this was a allergic reaction and to refrain from Bactrim DS in the future. Vaginal charles (Acute) History of rupture of uterus (Acute) History of section (Chronic) Polycystic ovarian syndrome (Acute) Advanced maternal age risk, currently not (Acute) Abdominal pain (Acute) Hernia (Chronic) Adrenal adenoma (Acute) Patellar tendonitis of left knee (Acute) Morbid obesity (Acute) Chronic fatigue (Acute) Snoring (Acute) Poor sleep (Acute) B-complex deficiency (Chronic) GERD (gastroesophageal reflux disease) (Chronic) Galactorrhea (Chronic) Hydradenitis (Chronic) IBS (irritable bowel syndrome) (Chronic) Neuropathic pain (Chronic) Dysphagia (Chronic) Hiatal hernia (Chronic) Screening for STD (sexually transmitted disease) (Acute 11/23/15) Migraine (Acute 03/05/15) Labial abscess (Acute 06/05/17) Fibromyalgia (Acute 03/05/15) Endometritis (Acute 11/23/15) Dry eye (Acute 03/05/15) Depression (Acute 03/05/15) BMI 45.0-49.9, adult (Acute 03/05/15) Surgical History section Family History Other Hydradenitis Ingrown hair Social History Smoking/Tobacco Use Status: Never Smoking risk assessment performed?: Yes Drug use: Never Substance use type: does not use Number of Children: 2 Current gender identity: female Do you feel safe at home: Yes Do you feel safe in your relationship?: Yes Female Reproductive History Menstrual control method: progestin IUCD Exam Narrative Exam Narrative: Constitutional: Alert and oriented x3. Appears older than stated age. Obese body habitus. Head: Normocephalic, no trauma. Eyes: Pupils PERRL, Red reflex noted, EOM's intact. Eyelids symmetrical without lesions, discharge, or swelling. ENT: Bilateral TM's WNL, External ear normal to inspection, no mastoid TTP, swelling, or erythema, Nasal turbinates WNL, no nasal discharge. Normal dentition, Posterior pharynx slightly erythematous, no exudate. Chest: RRR, Normal S1, S2, distal pulses intact. Resp: Lungs clear to auscultation bilaterally, no wheezes, rales, or rhonchi. Abdomen: Soft, non-distended, Normoactive bowel sounds all 4 quads. Musculoskeletal: Normal gait, 5/5 strength to all four extremities. Skin: No suspicious rashes or lesions. Capillary refill less than 2 sec. Neurologic: Cranial nerves II-XII intact. Alert and oriented x 3. Motor: No deficits noted. Sensory: Intact bilaterally all 4 extremities. Reflexes: DTR's intact bilaterally.. Hematologic/Lymphatic: No ecchymosis, no lymphadenopathy. Course Vital Signs Vital signs: Vital Signs Temperature 36.6 C 03/14/22 13:44 Pulse 98 H 03/14/22 13:44 Respiratory Rate 16 03/14/22 13:44 Blood Pressure 154/93 H 03/14/22 13:44 Pulse Oximetry 97 03/14/22 13:44 Temperature 36.8 C 03/14/22 14:25 Temperature Source Tympanic 03/14/22 14:25 Pulse 92 H 03/14/22 14:25 Respiratory Rate 16 03/14/22 13:44 Blood Pressure 126/56 L 03/14/22 14:25 Blood Pressure Position Sitting 03/14/22 13:44 Pulse Oximetry 96 03/14/22 14:25 Oxygen Delivery Method Room Air 03/14/22 14:25 Oxygen Flow Rate 0 03/14/22 14:25 Pain Level 8 03/14/22 14:25
[2022-03-14 15:20] LABS: Absolute Lymphocyte Count 2.71 10^3/uL (1.2-3.4); Absolute Neutrophil Count 7.42 10^3/uL (1.2-6.7)
[2022-03-14 15:26] LABS: ALT 21 U/L (14-59); AST 12 U/L (15-37); Albumin 3.3 g/dL (3.4-5.0); Alkaline Phosphatase 119 U/L (46-116); Anion Gap 6.2 mmol/L (3-11); BUN 12 mg/dL (7-18); Bilirubin, Total 0.2 mg/dL (0.2-1.0); CO2 28.8 mmol/L (21.0-32.0); CREATININE 0.7 mg/dL (0.55-1.02); Calcium 8.9 mg/dL (8.5-10.1); Chloride 105 mmol/L (98-107); Glucose 179 mg/dL (74-106); Lipase 55 U/L (73-393); Magnesium 1.7 mg/dL (1.8-2.4); Sodium 140 mmol/L (136-145); Total Protein 8.1 g/dL (6.4-8.2)
[2022-03-14] MEDS: Normal Saline Flush 10 ML SYR IVP ×2 (16:00→16:41)
[2022-03-14] MEDS: Ondansetron 4 MG/2 ML VIAL IVP (16:00)
[2022-03-14] MEDS: Normal Saline 500 ML 999 ML IV (16:41)
[2022-03-14] MEDS: Magnesium Oxide 400 MG TAB PO (16:42)
[2022-03-14] MEDS: Ondansetron O.D.T. 4 MG TABEF, 3 TABS/BTL PO (16:42)
[2022-03-14 16:57] LABS: Bilirubin Negative (Negative); Blood Trace-intact (Negative); Clarity Clear (Clear); Glucose Negative (Negative); Ketones Negative (Negative); Leukocyte Esterase Negative (Negative); Nitrite Negative (Negative); Specific Gravity >= 1.030 (1.005-1.025); Urobilinogen 0.2 EU/dL (Up TO 0.2); pH 5.5 (5-8)
[2022-03-14 17:03] LABS: Bacteria Many HPF (Negative); Crystals Negative HPF (Negative); Epithelial Cells Many HPF (Negative); RBC Negative HPF (0-2); WBC 0-2 HPF (0-5)
[2022-03-14 17:04] LABS: C & S Indicated? No/Sq. Contamination; Casts Negative LPF (Negative); Mucus Negative (Negative)
[2022-03-14 17:09] VITALS: BP 162/75; PULSE 81; RESP 16; TEMP 36.5; O2SAT 98
== END 2022-03-14 17:31 | disposition home or self-care (01) ==
PROVIDERS: Emergency Provider Registered Nurse Emergency; PCP Family Medicine
DX: R11.2 Nausea with vomiting, unspecified (principal); R19.7 Diarrhea, unspecified; K58.8 Other irritable bowel syndrome; E83.42 Hypomagnesemia
CPT/HCPCS: 36415; 80053; 81025; 83690; 96361; 96374; 99284; 74176; 81003; 81015; 83735; 85025; J2405

== ENCOUNTER → 2022-04-14 00:30 | Outpatient (CLI) | payer BC, MEDICAID, SELFPAY ==
--- NOTE | 2022-04-14 | DI.MRI_ITS ---
Exam(s) MR ABDOMEN WO/W EXAM: MR ABDOMEN WO/W CLINICAL HISTORY: F/U LESION OF LIVER,K76.89,ADRENAL ADENOMA,D35.0,ABD PAIN TECHNIQUE: Multiplanar multisequence MRI was performed with both pre and post contrast infused seque nces. Contrast injected sequences were performed following IV injection of 15 cc of Dotarem. COMPARISON: CT CT ABDOMEN PELVIS WO from 03/14/2022 FINDINGS: VISUALIZED LUNG BASES: No pleural effusions evident. There is no ascites evident. LIVER: In the anterior aspect of the left hepatic lobe there are areas of signal decrease on opposed phase sequence, consistent with focal fatty infiltration. Liver size upper normal. There are no enhan cing lesions in the liver. No cysts BILIARY: The gallbladder surgically absent. The CBD is not dilated. PANCREAS: There is no evidence of pancreatic mass nor dilatation of the pancreatic duct. SPLEEN: Spleen is not enlarged and there are no intrasplenic lesions.Splenic and portal veins are pat ent ADRENALS: There is a 1.6 x 1.5 cm nodule in left adrenal gland consistent with probable adenoma. Righ t adrenal gland appears unremarkable. KIDNEYS: No solid renal masses. No hydronephrosis.No cysts evident. ABDOMINAL AORTA: Not enlarged and there is no significant para-aortic adenopathy. ANTERIOR ABDOMINAL WALL/GI: Central-left of center large anterior abdominal hernia which contains fat but no bowel loops. There is no bowel obstruction. OSSEOUS: There are no lytic osseous lesions in the field of view of this study. IMPRESSION: 1. There is an area of spotty fatty parenchymal change-steatosis in left hepatic lobe, this correspon ding to finding on the recent CT scan. 2. There is a fat containing supraumbilical hernia. Does not contain bowel loops. There is no bowel o bstruction. 3. DATA REPOSITORY:
--- NOTE | 2022-04-14 16:32 | DI.VRAD_ITS ---
PROCEDURE INFORMATION: Exam: MR Abdomen Without and With Contrast; Liver Exam date and time: 04/14/2022 1:17 PM Age: 41 years old Clinical indication: Condition or disease; Liver condition; Lesion TECHNIQUE: Imaging protocol: MR Abdomen with and without intravenous contrast. Exam focused on the liver. Contrast material: DOTAREM; Contrast volume: 15 ml; Contrast route: INTRAVENOUS (IV); COMPARISON: CT ABDOMEN PELVIS WO 03/14/2022 3:37 PM FINDINGS: Liver: Top-normal sized liver with heterogeneous fatty infiltration. Hypoattenuating foci in the anterior left lobe on March 14, 2022 CT scan demonstrate signal loss on out of phase sequence, consistent with fatty infiltration ([id number]). No concerning liver lesion. Gallbladder and bile ducts: Post cholecystectomy. No biliary ductal dilation. Pancreas: The pancreas is unremarkable. Spleen: The spleen is unremarkable. Adrenal glands: 1.5 cm left adrenal adenoma. Unremarkable right adrenal gland. Kidneys and ureters: No hydronephrosis or nephrolithiasis. Stomach and bowel: No evidence of bowel obstruction. No pericolonic inflammatory stranding. Intraperitoneal space: No free fluid. Vasculature: The aorta is unremarkable. Bones/joints: Thoracic dextroscoliosis. Soft tissues: Moderate-sized fat containing containing supraumbilical abdominal wall hernia with fascial defect of approximately for cm transverse and minor stranding of herniated fat. Small fat containing umbilical hernia. IMPRESSION: 1. Top-normal sized liver with non uniform fatty infiltration. Hypoattenuating foci in the anterior left lobe on March 14, 2022 CT scan are consistent with fatty infiltration. 2. Fat containing supraumbilical hernia with minor stranding of herniated fat, which may indicate edema. Please correlate for tenderness. Dictated and Authenticated by: Evelyn Garcia MD. Ordering:SHAN Saunders MD
== END ==
PROVIDERS: PCP Family Medicine; Visit Provider Family Medicine
DX: D35.00 Benign neoplasm of unspecified adrenal gland; K76.89 Other specified diseases of liver; K76.0 Fatty (change of) liver, not elsewhere classified; K42.9 Umbilical hernia without obstruction or gangrene
CPT/HCPCS: 74183

== ENCOUNTER 2022-05-12 17:59 | Outpatient (REF) | payer BC, MEDICAID, SELFPAY | END 2022-05-12 18:00 | disposition home or self-care (01) | LOC: LBN 17:59 | PROVIDERS: PCP Family Medicine; Visit Provider Physician Assistant Medical | DX: R35.0 Frequency of micturition (principal) | CPT/HCPCS: 87086 ==

== ENCOUNTER 2022-06-23 12:50 | Emergency (ER) | payer BC, MEDICAID, SELFPAY ==
--- NOTE | 2022-06-23 13:00 | DI.RAD_ITS ---
Exam(s) XR CHEST 2V PA LATERAL EXAM: XR CHEST 2V PA LATERAL CLINICAL HISTORY: Upper respiratory ilness TECHNIQUE: 2D digital imaging was performed of the chest. Two images were obtained. PA and lateral views were obtained. COMPARISON: CR XR CHEST 2V PA LATERAL from 11/28/2021 FINDINGS: MEDIASTINUM: Normal. HEART: Normal. PULMONARY VASCULATURE: Normal. LUNGS: Clear. PLEURAL SPACE: No pleural effusion or pneumothorax. BONE:Within normal limits for the patient's age. Right convex curvature of the thoracic spine. OTHER FINDINGS:Normal. IMPRESSION: No acute pulmonary findings. DATA REPOSITORY: RADIATION DOSE DELIVERED:
[2022-06-23 13:03] VITALS: PULSE 92; RESP 14; TEMP 36.8; O2SAT 97
[2022-06-23 13:10] VITALS: RESP 21
--- NOTE | 2022-06-23 13:15 | ED.GENADUL_ITS ---
Discharge Plan Disposition Patient Disposition: HOME Condition: Stable Discharge Details Clinical Impression: Lethargic Primary Care Provider: Nicky Brewster V ED Provider: Kraig Galloway Home Meds and New Rx's Prescriptions: Continued duloxetine 20 mg capsule, delayed rel sprinkle 20 mg PO DAILY sucralfate [Carafate] 1 GM tablet 1 g PO PRN PRN Mirena 20 mcg/24 hr (5 years) intrauterine device 1 insert IY ONCE Label Comments: 09/13/2018; [id number], Exp 01/2021 ergocalciferol (vitamin D2) [Vitamin D2] 50,000 UNITS capsule 1 tab PO DIRECTED Rx Instructions: in winter only as per pt cetirizine 10 MG tablet 10 mg PO DAILY PRN epinephrine [EpiPen 2-Don] 0.3 MG/0.3 ML auto-injector 0.3 mg IJ PRN PRNQty: 1 0RF Label Comments: pt has not had to use this 01/23/16 buspirone 15 mg tablet 15 tab PO BID metformin 500 mg tablet extended release 24 hr 500 tab PO DAILY Label Comments: TAKE ONE TABLET BY MOUTH EVERY DAY Discharge Instructions Instructions: Fatigue (ED) Additional Instructions: your blood work did not show any concerning findings if you feel more ill, have severe pain or difficulty breathing return to the emergency department follow up with your primary care provider within 1 week Medical Decision Making <Fred Armendariz MD - Last Filed: 06/23/22 13:17> This is a 42-year-old female who presents from home complaining of lethargy and difficulty waking up this morning. States she had increased urination last night. States has had upper respiratory illness with runny nose and dry cough. No other illness in the house no recent change to medications. She states her mood is good. Patient is afebrile and well-appearing. <Kraig Galloway MD - Last Filed: 06/23/22 15:54> This is a 42-year-old female who presents from home complaining of lethargy and difficulty waking up this morning. States she had increased urination last night. States has had upper respiratory illness with runny nose and dry cough. No other illness in the house no recent change to medications. She states her mood is good. Patient is afebrile and well-appearing. pt signed out to me pending reassessment after fluids, urinated in the commode did not provide clean catch but denies any urinary symptoms and states she has had uti in the past and usually has burning and frequency, will cancel ua. She is feeling better, advised to f/u with pcp and return precautions given HPI <Fred Armendariz MD - Last Filed: 06/23/22 13:17> General Mode of arrival: ambulatory . Date/Time Provider Initiated Documentation: 06/23/22 12:55 . Limitations to Documentation: no limitations . Information obtained by: patient and family . History of Present Illness 42 year old F presents to the emergency department with the chief complaint of Hard time waking up this morning, feels lethargic, described as moderate, Patient started experiencing this hour(s) and it has been constant. No relieving factors improve symptom(s), Patient notes weakness and other (Increase urination); denies chest pain, diaphoresis, fever/chills and loss of appetite. Patient did receive the following treatments prior to arrival, none Related Data Home Medications Medication Instructions Recorded Confirmed ergocalciferol (vitamin D2) 1,250 1 tab PO DIRECTED 06/22/14 06/23/22 mcg (50,000 unit) capsule (Vitamin D2) cetirizine 10 mg tablet 10 mg PO DAILY PRN 01/20/15 06/23/22 epinephrine 0.3 mg/0.3 mL 0.3 mg (0.3 mL) IJ PRN PRN #1 mL 01/21/15 06/23/22 injection, auto-injector (EpiPen 2-Don) sucralfate 1 gram tablet (Carafate) 1 g PO PRN PRN 12/01/16 06/23/22 levonorgestrel 20 mcg/24 hours (7 1 insert intrauterine ONCE 09/18/18 06/23/22 yrs) 52 mg intrauterine device (Mirena) duloxetine 20 mg capsule,delayed 20 mg PO DAILY 10/06/19 06/23/22 release sprinkle buspirone 15 mg tablet 15 tab PO BID 03/14/22 06/23/22 metformin 500 mg tablet,extended 500 tab PO DAILY 06/23/22 06/23/22 release 24 hr Previous Rx's Medication Instructions Recorded epinephrine 0.3 mg/0.3 mL 0.3 mg (0.3 mL) IJ PRN PRN #1 mL 01/21/15 injection, auto-injector (EpiPen 2-Don) Allergies Allergy/AdvReac Type Severity Reaction Status Date / Time apricot Allergy Severe swelling Unverified 06/23/22 13:08 of lips and throat cholestyramine Allergy Severe sores in Unverified 06/23/22 13:08 [From Questran] mouth and throat ibuprofen Allergy Severe high dose Unverified 06/23/22 13:08 causes extreme swelling peach Allergy Severe swelling Unverified 06/23/22 13:08 lips and throat sucrose [From Questran] Allergy Severe sores in Unverified 06/23/22 13:08 mouth and throat tree nut Allergy Severe Unverified 06/23/22 13:08 banana Allergy Intermediate Unverified 06/23/22 13:08 ivermectin Allergy Intermediate leukocytoclastic Unverified 06/23/22 13:08 vasculitis penicillamine Allergy Intermediate hives,swell Unverified 06/23/22 13:08 ing Penicillins Allergy Intermediate hives, Unverified 06/23/22 13:08 swelling venlafaxine HCl Allergy Intermediate UNKNOWN Unverified 06/23/22 13:08 [From Effexor] doxycycline Allergy Mild I don't Unverified 06/23/22 13:08 tolerate it sulfamethoxazole Allergy Mild macular Verified 06/23/22 13:08 [From Bactrim] rash trimethoprim [From Bactrim] Allergy Mild macular Verified 06/23/22 13:08 rash apple Allergy Swelling/Ed Unverified 06/23/22 13:08 chris montelukast sodium AdvReac Severe facial Unverified 06/23/22 13:08 [From Singulair] swelling, itching, depression bupropion HCl AdvReac Intermediate visual Unverified 06/23/22 13:08 [From Wellbutrin] disturbances latex AdvReac Intermediate Skin Rash Unverified 06/23/22 13:08 walnut Allergy Severe swelling Uncoded 06/23/22 13:08 tongue and throat General Stated Complaint: AMS/LOC SUJATA: 2 Review of Systems <Fred Armendariz MD - Last Filed: 06/23/22 13:17> Narrative: States her mood is fine. No fever. She has had upper respiratory symptoms with a runny nose and dry cough. Increased urination yesterday. 7 systems reviewed and otherwise negative PFSH <Fred Armendariz MD - Last Filed: 06/23/22 13:17> All Active Problems (Updated 06/23/22 @ 15:51 by Kraig Galloway MD) Lethargic (Acute) Skin rash (Acute) After beginning Bactrim DS for labial abscess. Patient was counseled this was a allergic reaction and to refrain from Bactrim DS in the future. Vaginal charles (Acute) History of rupture of uterus (Acute) History of section (Chronic) Polycystic ovarian syndrome (Acute) Advanced maternal age risk, currently not (Acute) Abdominal pain (Acute) Hernia (Chronic) Adrenal adenoma (Acute) Patellar tendonitis of left knee (Acute) Morbid obesity (Acute) Chronic fatigue (Acute) Snoring (Acute) Poor sleep (Acute) B-complex deficiency (Chronic) GERD (gastroesophageal reflux disease) (Chronic) Galactorrhea (Chronic) Hydradenitis (Chronic) IBS (irritable bowel syndrome) (Chronic) Neuropathic pain (Chronic) Dysphagia (Chronic) Hiatal hernia (Chronic) Screening for STD (sexually transmitted disease) (Acute 11/23/15) Migraine (Acute 03/05/15) Labial abscess (Acute 06/05/17) Fibromyalgia (Acute 03/05/15) Endometritis (Acute 11/23/15) Dry eye (Acute 03/05/15) Depression (Acute 03/05/15) BMI 45.0-49.9, adult (Acute 03/05/15) Surgical History section Family History Other Hydradenitis Ingrown hair Social History Smoking/Tobacco Use Status: Never Smoking risk assessment performed?: Yes Drug use: Never Substance use type: does not use Number of Children: 2 Current gender identity: female Do you feel safe at home: Yes Do you feel safe in your relationship?: Yes Female Reproductive History Menstrual control method: progestin IUCD Exam <Fred Armendariz MD - Last Filed: 06/23/22 13:17> Narrative Exam Narrative: GEN: awake, alert, oriented 3. Pleasant, well groomed, interactive. Hirsute HEAD: Normocephalic, atraumatic ENT: Mucous membranes dry, oropharynx unremarkable, External ear exam unremarkable EYES: PERRL, EOMI NECK: Full ROM, no ALVIN, no menigismus CHEST/RESP: Nontender, clear to auscultation bilateral, no wheeze/rhonchi/rales CARDIOVASCULAR: RRR, no murmur, rub dale. 2+ Rad pulse bilateral ABDOMEN: Soft, nontender, no mass. +Bowel sounds EXT: Full ROM, no edema, no rash Neuro: Grossly normal neurologic exam, conversant, interactive. Psych: Speech fluent, thoughts congruent, affect normal Course <Fred Armendariz MD - Last Filed: 06/23/22 13:17> Vital Signs Vital signs: Vital Signs Temperature 36.8 C 06/23/22 13:03 Pulse 92 H 06/23/22 13:03 Respiratory Rate 14 06/23/22 13:03 Pulse Oximetry 97 06/23/22 13:03 Temperature 36.8 C 06/23/22 13:03 Temperature Source Temporal Artery Scan 06/23/22 13:03 Pulse 92 H 06/23/22 13:03 Respiratory Rate 21 06/23/22 13:10 Respiratory Effort 06/23/22 13:10 Respiratory Depth Normal 06/23/22 13:10 Respiratory Pattern Normal 06/23/22 13:10 Blood Pressure Position Supine 06/23/22 13:03 Pulse Oximetry 97 06/23/22 13:03 Oxygen Delivery Method Room Air 06/23/22 13:03 Oxygen Flow Rate 0 06/23/22 13:03 Sign Out <Fred Armendariz MD - Last Filed: 06/23/22 13:17> Sign Out Data: Sign Out Comment: Nonspecific malaise, followup UA/labs Last updated by Fred Armendariz MD at 06/23/22 15:08
[2022-06-23] MEDS: Normal Saline 1,000 ML 1000 ML IV (13:45)
[2022-06-23 14:45] LABS: Abs Immature Grans 0.02 10^3/uL (0.0-0.06); Absolute Basophil Count 0.04 10^3/uL (0.0-0.2); Absolute Eosinophil Count 0.17 10^3/uL (0.0-0.7); Absolute Lymphocyte Count 2.82 10^3/uL (1.2-3.4); Absolute Monocyte Count 0.59 10^3/uL (0.1-0.8); Absolute Neutrophil Count 5.82 10^3/uL (1.2-6.7); Basophils % 0.4; Eosinophils % 1.8; HCT 39.6 % (36.0-46.0); HGB 12.6 g/dL (11.2-15.7); Immature Grans % 0.2; Lymphocytes % 29.8; MCH 27.6 pg (27.0-33.0); MCHC 31.8 % (32.0-36.0); MCV 87 fL (80-95); MPV 9.3 fL (8.0-11.0); Monocytes % 6.2; Neutrophils % 61.6; Platelet Count 330 10^3/uL (130-400); RBC 4.56 10^6/uL (3.93-5.22); RDW 13.5 % (11.7-14.6); RDW-SD 42.5 fL; WBC 9.46 10^3/uL (4.4-10.8)
[2022-06-23 15:01] LABS: ALT 23 U/L (14-59); AST 22 U/L (15-37); Albumin 2.9 g/dL (3.4-5.0); Alkaline Phosphatase 112 U/L (46-116); Anion Gap 6.7 mmol/L (3-11); BUN 8 mg/dL (7-18); Bilirubin, Total 0.3 mg/dL (0.2-1.0); CO2 28.3 mmol/L (21.0-32.0); CREATININE 0.7 mg/dL (0.55-1.02); Calcium 8.6 mg/dL (8.5-10.1); Chloride 102 mmol/L (98-107); Glucose 162 mg/dL (74-106); Magnesium 1.8 mg/dL (1.8-2.4); Potassium 3.8 mmol/L (3.5-5.1); Sodium 137 mmol/L (136-145); Total Protein 7.7 g/dL (6.4-8.2)
== END 2022-06-23 16:00 | disposition home or self-care (01) ==
PROVIDERS: Emergency Medicine; Emergency Provider Emergency Medicine; PCP Family Medicine
DX: R53.83 Other fatigue (principal)
CPT/HCPCS: 36415; 80053; 96360; 99284; 71046; 83735; 85025; 99282

== ENCOUNTER 2022-10-05 12:17 | Emergency (ER) | payer BC, MEDICAID, SELFPAY ==
[2022-10-05 12:35] VITALS: BP 141/87; PULSE 109; RESP 18; TEMP 37.1; O2SAT 96
--- NOTE | 2022-10-05 12:47 | ED.GENADUL_ITS ---
Discharge Plan Disposition Patient Disposition: Home Condition: Stable Discharge Details Clinical Impression: Pain in mouth Primary Care Provider: Nicky Brewster V ED Provider: Venancio Javier Home Meds and New Rx's Prescriptions: Continued duloxetine 20 mg capsule, delayed rel sprinkle 20 mg PO DAILY sucralfate [Carafate] 1 GM tablet 1 g PO PRN PRN Mirena 20 mcg/24 hr (5 years) intrauterine device 1 insert IY ONCE Label Comments: 09/13/2018; [id number], Exp 01/2021 ergocalciferol (vitamin D2) [Vitamin D2] 50,000 UNITS capsule 1 tab PO DIRECTED Rx Instructions: in winter only as per pt cetirizine 10 MG tablet 10 mg PO DAILY PRN epinephrine [EpiPen 2-Don] 0.3 MG/0.3 ML auto-injector 0.3 mg IJ PRN PRNQty: 1 0RF Label Comments: pt has not had to use this 01/23/16 clindamycin HCl 300 mg capsule 1 cap PO TID Label Comments: TAKE ONE CAPSULE BY MOUTH THREE TIMES A DAY FOR 7 DAYS buspirone 15 mg tablet 15 tab PO BID metformin 500 mg tablet extended release 24 hr 500 tab PO DAILY Label Comments: TAKE ONE TABLET BY MOUTH EVERY DAY Discharge Instructions Additional Instructions: No evidence of allergic reaction. Continue taking your clindamycin as directed. [id number]-dndkyno Tylenol as directed as well. I have provided you with some viscous lidocaine to also use as directed, you may apply using a cotton swab up to 6 times daily. Please watch for new or worsening symptoms and return to the ER for any concerns. Lastly I would reach out to both your PCP and your dentist later today or tomorrow to discuss your ER visit need for outpatient reevaluation. Discharge Data Discharge Date/Time-TO BE ENTERED AT DEPARTURE: 10/05/22 13:54 Medical Decision Making This is a 42-year-old female who had a root canal on Sunday and later that evening developed symptoms. Subsequently the following day placed on clindamycin, took 2 doses Sunday, 3 doses Sunday, has not taken anything today. Clinically she appears anxious but not acute. No evidence of trismus. No pointing abscess. Patient reports that she is specifically concerned of an allergic reaction. She has multiple allergies to medications, specifically antibiotics. Clinically there are no signs of allergic reaction, angioedema, etc. Patient manages secretions without difficulty. She speaks in full sentences and lungs are clear to auscultation. She also brings up the possibility of shingles. If this does not appear to follow a dermatome pattern, symptoms began on Sunday, there is no rash today. Symptoms began after the [facility] [employer] [facility] work. She has mild swelling and tenderness to her face which would be more consistent with an infection. Cranial nerves are intact. Patient reports pain within her mouth. She reports Tylenol is not helping and she is unable to take ibuprofen. Plan to provide viscous lidocaine for analgesia. Patient has been on antibiotics for less than a total of 48 hours and has not taken her medicatio ns today. Recommend that she take her antibiotics as directed, continue Tylenol, add on viscous lidocaine, and I did recommend contacting her dentist to discuss her ongoing symptoms and need for outpatient reevaluation as well as her PCP. Again, she appears well, nontoxic, managing secretions without difficulty, no evidence of anaphylactic reaction, shingles, trismus. Standard discharge and return precautions were provided. Patient understands, is agreeable to this plan, and has no additional questions or concerns upon discharge. This documentation was generated using [employer] system, please disregard any oddities of phrase or misspellings. Medical Records Medical records reviewed: Yes I reviewed the patient's medical records. HPI General Mode of arrival: ambulatory . Date/Time Provider Initiated Documentation: 10/05/22 12:46 . Limitations to Documentation: no limitations . Information obtained by: patient . HPI Narrative: This is a 42-year-old female with a past medical history that includes depre ssion, BMI greater than 50, fibromyalgia, migraines, PCOS, IBS, presenting to the ER reporting left upper mouth and facial pain and swelling that began on Sunday after having a root canal. Subsequently started on clindamycin the next day in the afternoon, 2 doses on Sunday, 3 doses yesterday, and has not taken any medication today. Patient has no real relief of her symptoms, has multiple allergies to antibiotics, and is concerned that she may be having an allergic reaction to this medication. She reports subjective fever. Reports the pain does radiate to her left ear. Denies sore throat, difficulty speaking or swallowing, lip-tongue swelling. Denies skin rash. Related Data Home Medications Medication Instructions Recorded Confirmed ergocalciferol (vitamin D2) 1,250 1 tab PO DIRECTED 06/22/14 10/05/22 mcg (50,000 unit) capsule (Vitamin D2) cetirizine 10 mg tablet 10 mg PO DAILY PRN 01/20/15 10/05/22 epinephrine 0.3 mg/0.3 mL 0.3 mg (0.3 mL) IJ PRN PRN #1 mL 01/21/15 10/05/22 injection, auto-injector (EpiPen 2-Don) sucralfate 1 gram tablet (Carafate) 1 g PO PRN PRN 12/01/16 10/05/22 levonorgestrel 20 mcg/24 hours (8 1 insert intrauterine ONCE 09/18/18 10/05/22 yrs) 52 mg intrauterine device (Mirena) duloxetine 20 mg capsule,delayed 20 mg PO DAILY 10/06/19 10/05/22 release sprinkle buspirone 15 mg tablet 15 tab PO BID 03/14/22 10/05/22 metformin 500 mg tablet,extended 500 tab PO DAILY 06/23/22 10/05/22 release 24 hr clindamycin HCl 300 mg capsule 1 cap PO TID 10/05/22 10/05/22 Previous Rx's Medication Instructions Recorded epinephrine 0.3 mg/0.3 mL 0.3 mg (0.3 mL) IJ PRN PRN #1 mL 01/21/15 injection, auto-injector (EpiPen 2-Don) Allergies Allergy/AdvReac Type Severity Reaction Status Date / Time apricot Allergy Severe swelling Unverified 10/05/22 12:38 of lips and throat cholestyramine Allergy Severe sores in Unverified 10/05/22 12:38 [From Questran] mouth and throat ibuprofen Allergy Severe high dose Unverified 10/05/22 12:38 causes extreme swelling peach Allergy Severe swelling Unverified 10/05/22 12:38 lips and throat sucrose [From Questran] Allergy Severe sores in Unverified 10/05/22 12:38 mouth and throat tree nut Allergy Severe Unverified 10/05/22 12:38 banana Allergy Intermediate Unverified 10/05/22 12:38 ivermectin Allergy Intermediate leukocytoclastic Unverified 10/05/22 12:38 vasculitis penicillamine Allergy Intermediate hives,swell Unverified 10/05/22 12:38 ing Penicillins Allergy Intermediate hives, Unverified 10/05/22 12:38 swelling venlafaxine HCl Allergy Intermediate UNKNOWN Unverified 10/05/22 12:38 [From Effexor] doxycycline Allergy Mild I don't Unverified 10/05/22 12:38 tolerate it sulfamethoxazole Allergy Mild macular Verified 10/05/22 12:38 [From Bactrim] rash trimethoprim [From Bactrim] Allergy Mild macular Verified 10/05/22 12:38 rash apple Allergy Swelling/Ed Unverified 10/05/22 12:38 chris montelukast sodium AdvReac Severe facial Unverified 10/05/22 12:38 [From Singulair] swelling, itching, depression bupropion HCl AdvReac Intermediate visual Unverified 10/05/22 12:38 [From Wellbutrin] disturbances latex AdvReac Intermediate Skin Rash Unverified 10/05/22 12:38 walnut Allergy Severe swelling Uncoded 10/05/22 12:38 tongue and throat General Stated Complaint: DentalOral SUJATA: 4 Review of Systems Constitutional Constitutional: Reports fever(s) (Subjective), Reports headache(s) and Denies weakness Eyes Eyes: Denies change in vision ENT Ears, Nose, Mouth, and Throat: Reports headache(s), Reports mouth pain, Denies sore throat, Denies throat swelling and Denies tongue swelling Cardiovascular Cardiovascular: Denies chest pain and Denies dyspnea Respiratory Respiratory: Denies cough, Denies dyspnea and Denies wheezing Gastrointestinal Gastrointestinal: Denies nausea and Denies vomiting Integumentary/Breasts Skin/Breast: Denies rash Neurologic Neurologic: Reports headache(s) and Denies weakness Allergic/Immunologic Allergic/Immunologic: Denies throat swelling, Denies tongue swelling and Denies wheezing PFSH All Active Problems (Updated 10/05/22 @ 13:35 by BOOKER Ha) Pain in mouth (Acute) Skin rash (Acute) After beginning Bactrim DS for labial abscess. Patient was counseled this was a allergic reaction and to refrain from Bactrim DS in the future. Vaginal charles (Acute) History of rupture of uterus (Acute) History of section (Chronic) Polycystic ovarian syndrome (Acute) Advanced maternal age risk, currently not (Acute) Abdominal pain (Acute) Hernia (Chronic) Adrenal adenoma (Acute) Patellar tendonitis of left knee (Acute) Morbid obesity (Acute) Chronic fatigue (Acute) Snoring (Acute) Poor sleep (Acute) B-complex deficiency (Chronic) GERD (gastroesophageal reflux disease) (Chronic) Galactorrhea (Chronic) Hydradenitis (Chronic) IBS (irritable bowel syndrome) (Chronic) Neuropathic pain (Chronic) Dysphagia (Chronic) Hiatal hernia (Chronic) Screening for STD (sexually transmitted disease) (Acute 11/23/15) Migraine (Acute 03/05/15) Labial abscess (Acute 06/05/17) Fibromyalgia (Acute 03/05/15) Endometritis (Acute 11/23/15) Dry eye (Acute 03/05/15) Depression (Acute 03/05/15) BMI 45.0-49.9, adult (Acute 03/05/15) Surgical History section Family History Other Hydradenitis Ingrown hair Social History Smoking/Tobacco Use Status: Never Smoking risk assessment performed?: Yes Alcohol Intake: current Alcohol Intake frequency: holidays/special occasions only Drug use: Never Substance use type: does not use Number of Children: 2 Current gender identity: female Do you feel safe at home: Yes Do you feel safe in your relationship?: Yes Female Reproductive History Menstrual control method: progestin IUCD Exam Const General: cooperative, healthy appearing, comfortable, no acute distress and anxious (Tearful at times) Orientation: alert and awake [facility] Head: normal to inspection, normocephalic and atraumatic Ears: external ears normal, TM's normal bilaterally and EAC's normal Face images: 1. Minimal swelling. Diffuse tenderness. There is no erythema, warmth, induration, fluctuance, signs of abscess or trismus. Skin is intact. Mouth: oral mucosae normal, lip normal, tongue normal and moist mucous membranes Teeth and gingiva: caries Throat: posterior oropharynx normal Eyes General: appearance normal, both eyes and all related structures Alignment and Position: alignment normal Periorbital: periorbital findings normal Eyelids: eyelids normal Conjunctivae: conjunctivae normal Sclera: sclerae normal Cornea: corneas normal Pupils: PERRL EOM: EOM intact bilaterally Direct ophthalmoscopy: normal light reflex Neck Neck: normal visual inspection, full ROM, no meningeal signs, trachea midline, supple, lymphadenopathy left anterior cervical and tender (left lymphadenopathy) Resp Effort & Inspection: normal respiratory effort and able to speak in complete sentences Auscultation: clear to auscultation bilaterally Cardio Rate: regular rate (90s) Rhythm: regular rhythm Skin General skin exam: no rashes or lesions noted Neuro General: patient alert, patient awake, moves all extremities and no focal motor deficits Cognition: normal cognition Speech: speech normal Gait: normal gait Sensory Exam: no sensory deficits noted Psych Appearance: grossly normal Mental Status: mental status grossly normal Course Vital Signs Vital signs: Vital Signs Temperature 37.1 C 10/05/22 12:35 Pulse 109 H 10/05/22 12:35 Respiratory Rate 18 10/05/22 12:35 Blood Pressure 141/87 H 10/05/22 12:35 Pulse Oximetry 96 10/05/22 12:35 Temperature 37.1 C 10/05/22 12:35 Temperature Source Temporal Artery Scan 10/05/22 12:35 Pulse 109 H 10/05/22 12:35 Respiratory Rate 18 10/05/22 12:35 Blood Pressure 141/87 H 10/05/22 12:35 Blood Pressure Position Sitting 10/05/22 12:35 Pulse Oximetry 96 10/05/22 12:35 Oxygen Delivery Method Room Air 10/05/22 12:35 Oxygen Flow Rate 0 10/05/22 12:35 Pain Level 9 10/05/22 12:35
[2022-10-05] MEDS: Lidocaine 2% Viscous 1 ML Solution 15 ML PO (13:34)
[2022-10-05 13:46] VITALS: BP 136/100; PULSE 116; TEMP 36.7; O2SAT 93
== END 2022-10-05 13:54 | disposition home or self-care (01) ==
PROVIDERS: Emergency Provider Physician Assistant; PCP Family Medicine
DX: K13.79 Other lesions of oral mucosa (principal)
CPT/HCPCS: 99282

== ENCOUNTER 2022-12-20 12:43 | Emergency (ER) | payer BC, MEDICAID, SELFPAY ==
[2022-12-20 12:47] VITALS: PULSE 92; RESP 18; TEMP 36.1; O2SAT 97
--- NOTE | 2022-12-20 14:00 | DI.CT_ITS ---
Exam(s) CT ABDOMEN PELVIS WO EXAM: CT ABDOMEN PELVIS WO CLINICAL HISTORY: lower right abdominal pain. TECHNIQUE: Imaging Protocol: Axial computed tomography images with coronal and sagittal reformatted images were created and reviewed. Oral: no COMPARISON: CT CT ABDOMEN PELVIS WO from 03/14/2022 FINDINGS: Heart size is normal. Lung bases are clear. Liver shows fatty infiltration. Patient is status post cholecystectomy. The spleen, pancreas and kidneys are unremarkable. There is a stable small low-density nodule of the left adrenal gland measuring 13 millimeters consistent with an adenoma. No follow-up recommended. There is a hernia in the midline above the level of the umbilicus containing fat as well as a portion of the transverse colon. On the prior exam, the hernia only contained fat. There is no evidence of incarceration. A stable sized small fatty umbilical hernia is seen. The bowel is otherwise unremar kable. An IUD is noted in the uterus. The bladder is unremarkable. There is bilateral L5 spondylolysis but no spondylolisthesis. IMPRESSION: Increasing size of abdominal wall hernia above the level of the umbilicus containing fat and portion of the transverse colon. Findings called to Dr. Mendoza, emergency department provider. RADIATION DOSE DELIVERED: 1,489.16mGy.cm Total DLP DATA REPOSITORY: All CT scans at this facility are submitted to the National Radiology Data Registry (NRDR) Dose Index Registry (DIR) with the [employer] ([employer]). RADIATION OPTIMIZATION: All CT scans at this facility use at least one of these dose optimization te chniques: automated exposure control; mA and/or kV adjustment per patient size (includes targeted exa ms where dose is matched to clinical indication); or iterative reconstruction.
--- NOTE | 2022-12-20 14:17 | ED.GENADUL_ITS ---
Discharge Plan Disposition Patient Disposition: Home Discharge Details Chief Complaint: Abd Prob Clinical Impression: Abdominal pain Primary Care Provider: Nicky Brewster V ED Provider: Chris Russo Home Meds and New Rx's Prescriptions: No Action duloxetine 20 mg capsule, delayed rel sprinkle 20 mg PO DAILY sucralfate [Carafate] 1 GM tablet 1 g PO PRN PRN Mirena 20 mcg/24 hr (5 years) intrauterine device 1 insert IY ONCE Patient Comments: 09/13/2018; [id number], Exp 01/2021 ergocalciferol (vitamin D2) [Vitamin D2] 50,000 UNITS capsule 1 tab PO DIRECTED Rx Instructions: in winter only as per pt cetirizine 10 MG tablet 10 mg PO DAILY PRN epinephrine [EpiPen 2-Don] 0.3 MG/0.3 ML auto-injector 0.3 mg IJ PRN PRNQty: 1 0RF Patient Comments: pt has not had to use this 01/23/16 clindamycin HCl 300 mg capsule 1 cap PO TID Patient Comments: TAKE ONE CAPSULE BY MOUTH THREE TIMES A DAY FOR 7 DAYS buspirone 15 mg tablet 15 tab PO BID metformin 500 mg tablet extended release 24 hr 500 tab PO DAILY Patient Comments: TAKE ONE TABLET BY MOUTH EVERY DAY Discharge Instructions Instructions: Abdominal Pain (ED), Ventral Hernia (ED) Additional Instructions: Please follow with your primary care physician. Medical Decision Making <Kraig Galloway MD - Last Filed: 12/20/22 14:21> 42 yo female with hx of 2 prior c sections, pcos, ibs, who comes in with 2 days of right lower abdominal pain that has progressively worsened. She denies fevers, chills, cheset pain, dyspnea, n/v. She arrives stable speaking clearly caox4. She localizes the pain to the right lower abdomen. HAs tenderness with palpation to this area, no pain or tenderness elsewhere, no visible or palpable deformities or massess. Unclear etiology for her pain but given the locatin of her pain will proceed with ct without iv contrast as currently the infuser for iv contrast is broken, also cbc, cmp, lipase and reassess. Differential Diagnosis Differential Diagnosis: appendicitis, ovarian cyst, sbo Medical Records Medical records reviewed: Yes I reviewed the patient's medical records. Lab Data Lab results reviewed: Yes I reviewed the patient's lab results. <Chris Russo MD - Last Filed: 12/20/22 16:18> 42 yo female with hx of 2 prior c sections, pcos, ibs, who comes in with 2 days of right lower abdominal pain that has progressively worsened. She denies fevers, chills, cheset pain, dyspnea, n/v. She arrives stable speaking clearly caox4. She localizes the pain to the right lower abdomen. HAs tenderness with palpation to this area, no pain or tenderness elsewhere, no visible or palpable deformities or massess. Unclear etiology for her pain but given the locatin of her pain will proceed with ct without iv contrast as currently the infuser for iv contrast is broken, also cbc, cmp, lipase and reassess. 16: 17 patient resting comfortably no acute distress abdomen soft nontender nondistended. Palpable midline hernia soft easily compressible nonperitoneal. No vomiting or constipation. Patient feeling better after medications. HPI <Kraig Galloway MD - Last Filed: 12/20/22 14:21> General Mode of arrival: ambulatory . Date/Time Provider Initiated Documentation: 12/20/22 13:58 . Limitations to Documentation: no limitations . Information obtained by: patient . History of Present Illness 42 year old F presents to the emergency department with the chief complaint of abdominal pain, described as severe, Patient started experiencing this day(s) (2) and it has been constant. No relieving factors improve symptom(s), No exacerbating factors reported . Patient notes denies fever/chills and nausea/vomiting. Patient did receive the following treatments prior to arrival, none Related Data Home Medications Medication Instructions Recorded Confirmed ergocalciferol (vitamin D2) 1,250 1 tab PO DIRECTED 06/22/14 10/05/22 mcg (50,000 unit) capsule (Vitamin D2) cetirizine 10 mg tablet 10 mg PO DAILY PRN 01/20/15 10/05/22 epinephrine 0.3 mg/0.3 mL 0.3 mg (0.3 mL) IJ PRN PRN #1 mL 01/21/15 10/05/22 injection, auto-injector (EpiPen 2-Don) sucralfate 1 gram tablet (Carafate) 1 g PO PRN PRN 12/01/16 10/05/22 levonorgestrel 21 mcg/24 hours (8 1 insert intrauterine ONCE 09/18/18 10/05/22 yrs) 52 mg intrauterine device (Mirena) duloxetine 20 mg capsule,delayed 20 mg PO DAILY 10/06/19 10/05/22 release sprinkle buspirone 15 mg tablet 15 tab PO BID 03/14/22 10/05/22 metformin 500 mg tablet,extended 500 tab PO DAILY 06/23/22 10/05/22 release 24 hr clindamycin HCl 300 mg capsule 1 cap PO TID 10/05/22 10/05/22 Previous Rx's Medication Instructions Recorded epinephrine 0.3 mg/0.3 mL 0.3 mg (0.3 mL) IJ PRN PRN #1 mL 01/21/15 injection, auto-injector (EpiPen 2-Don) Allergies Allergy/AdvReac Type Severity Reaction Status Date / Time apricot Allergy Severe swelling Unverified 10/05/22 12:38 of lips and throat cholestyramine Allergy Severe sores in Unverified 10/05/22 12:38 [From Questran] mouth and throat ibuprofen Allergy Severe high dose Unverified 10/05/22 12:38 causes extreme swelling peach Allergy Severe swelling Unverified 10/05/22 12:38 lips and throat sucrose [From Questran] Allergy Severe sores in Unverified 10/05/22 12:38 mouth and throat tree nut Allergy Severe Unverified 10/05/22 12:38 banana Allergy Intermediate Unverified 10/05/22 12:38 ivermectin Allergy Intermediate leukocytoclastic Unverified 10/05/22 12:38 vasculitis penicillamine Allergy Intermediate hives,swell Unverified 10/05/22 12:38 ing Penicillins Allergy Intermediate hives, Unverified 10/05/22 12:38 swelling venlafaxine HCl Allergy Intermediate UNKNOWN Unverified 10/05/22 12:38 [From Effexor] doxycycline Allergy Mild I don't Unverified 10/05/22 12:38 tolerate it sulfamethoxazole Allergy Mild macular Verified 10/05/22 12:38 [From Bactrim] rash trimethoprim [From Bactrim] Allergy Mild macular Verified 10/05/22 12:38 rash apple Allergy Swelling/Ed Unverified 10/05/22 12:38 chris montelukast sodium AdvReac Severe facial Unverified 10/05/22 12:38 [From Singulair] swelling, itching, depression bupropion HCl AdvReac Intermediate visual Unverified 10/05/22 12:38 [From Wellbutrin] disturbances latex AdvReac Intermediate Skin Rash Unverified 10/05/22 12:38 walnut Allergy Severe swelling Uncoded 10/05/22 12:38 tongue and throat General Stated Complaint: Abd Prob SUJATA: 3 Review of Systems <Kraig Galloway MD - Last Filed: 12/20/22 14:21> All systems reviewed & are unremarkable except as noted in HPI and below Constitutional Constitutional: Denies chills, Denies fever(s) and Denies weakness Cardiovascular Cardiovascular: Denies chest pain and Denies dyspnea Respiratory Respiratory: Denies cough and Denies dyspnea Gastrointestinal Gastrointestinal: Denies nausea and Denies vomiting Integumentary/Breasts Skin/Breast: Denies rash Neurologic Neurologic: Denies weakness PFS <Kraig Galloway MD - Last Filed: 12/20/22 14:21> All Active Problems (Updated 12/20/22 @ 16:18 by Chris Russo MD) Abdominal pain (Acute) Skin rash (Acute) After beginning Bactrim DS for labial abscess. Patient was counseled this was a allergic reaction and to refrain from Bactrim DS in the future. Vaginal charles (Acute) History of rupture of uterus (Acute) History of section (Chronic) Polycystic ovarian syndrome (Acute) Advanced maternal age risk, currently not (Acute) Abdominal pain (Acute) Hernia (Chronic) Adrenal adenoma (Acute) Patellar tendonitis of left knee (Acute) Morbid obesity (Acute) Chronic fatigue (Acute) Snoring (Acute) Poor sleep (Acute) B-complex deficiency (Chronic) GERD (gastroesophageal reflux disease) (Chronic) Galactorrhea (Chronic) Hydradenitis (Chronic) IBS (irritable bowel syndrome) (Chronic) Neuropathic pain (Chronic) Dysphagia (Chronic) Hiatal hernia (Chronic) Screening for STD (sexually transmitted disease) (Acute 11/23/15) Migraine (Acute 03/05/15) Labial abscess (Acute 06/05/17) Fibromyalgia (Acute 03/05/15) Endometritis (Acute 11/23/15) Dry eye (Acute 03/05/15) Depression (Acute 03/05/15) BMI 45.0-49.9, adult (Acute 03/05/15) Surgical History section Family History Other Hydradenitis Ingrown hair Social History Smoking/Tobacco Use Status: Never Smoking risk assessment performed?: Yes Alcohol Intake: current Alcohol Intake frequency: holidays/special occasions only Drug use: Never Substance use type: does not use Number of Children: 2 Current gender identity: female Do you feel safe at home: Yes Do you feel safe in your relationship?: Yes Female Reproductive History Menstrual control method: progestin IUCD Exam <Kraig Galloway MD - Last Filed: 12/20/22 14:21> Const General: no acute distress Orientation: alert HENMT Head: normal to inspection Ears: external ears normal General nose exam: external nose normal Mouth: moist mucous membranes Eyes General: appearance normal, both eyes and all related structures Neck Neck: normal visual inspection Resp Effort & Inspection: normal respiratory effort and able to speak in complete sentences Cardio Rate: regular rate GI Palpation: soft and tender Skin General skin exam: no rashes or lesions noted Neuro General: patient alert and patient oriented x3 Extrem General: normal to inspection Psych Mental Status: mental status grossly normal Course <Kraig Galloway MD - Last Filed: 12/20/22 14:21> Vital Signs Vital signs: Vital Signs Temperature 36.1 C L 12/20/22 12:47 Pulse 92 H 12/20/22 12:47 Respiratory Rate 18 12/20/22 12:47 Pulse Oximetry 97 12/20/22 12:47 Temperature 36.1 C L 12/20/22 12:47 Temperature Source Tympanic 12/20/22 12:47 Pulse 92 H 12/20/22 12:47 Respiratory Rate 18 12/20/22 12:47 Respiratory Effort Normal 12/20/22 12:51 Pulse Oximetry 97 12/20/22 12:47 Oxygen Delivery Method Room Air 12/20/22 12:47 Oxygen Flow Rate 0 12/20/22 12:47 Pain Level 7 12/20/22 12:47 Sign Out <Kraig Galloway MD - Last Filed: 12/20/22 14:21> Sign Out Data: Sign Out Comment: 2 days right lower abdominal pain, pending ct Last updated by Kraig Galloway MD at 12/20/22 15:04
[2022-12-20 14:21] LABS: Abs Immature Grans 0.03 10^3/uL (0.0-0.06); Absolute Basophil Count 0.05 10^3/uL (0.0-0.2); Absolute Lymphocyte Count 3.93 10^3/uL (1.2-3.4); Absolute Monocyte Count 0.54 10^3/uL (0.1-0.8); Absolute Neutrophil Count 6.92 10^3/uL (1.2-6.7); Basophils % 0.4; Eosinophils % 1.7; HCT 41.7 % (36.0-46.0); HGB 13.1 g/dL (11.2-15.7); Immature Grans % 0.3; Lymphocytes % 33.7; MCHC 31.4 % (32.0-36.0); MCV 86 fL (80-95); MPV 8.6 fL (8.0-11.0); Monocytes % 4.6; Neutrophils % 59.3; Platelet Count 340 10^3/uL (130-400); RBC 4.86 10^6/uL (3.93-5.22); RDW 14.7 % (11.7-14.6); RDW-SD 46.6 fL; WBC 11.67 10^3/uL (4.4-10.8)
[2022-12-20 14:23] LABS: Source Nasal/Nares
[2022-12-20] MEDS: ACETAMINOPHEN 1,000 MG/100 ML BTL 400 MG IVPB (14:30)
[2022-12-20] MEDS: Normal Saline 1,000 ML 1000 ML IV (14:30)
[2022-12-20 14:44] LABS: ALT 18 U/L (14-59); AST 6 U/L (15-37); Albumin 3.3 g/dL (3.4-5.0); Alkaline Phosphatase 119 U/L (46-116); Anion Gap 7.1 mmol/L (3-11); BUN 14 mg/dL (7-18); Bilirubin, Total 0.1 mg/dL (0.2-1.0); CO2 29.9 mmol/L (21.0-32.0); CREATININE 0.8 mg/dL (0.55-1.02); Calcium 9.3 mg/dL (8.5-10.1); Chloride 106 mmol/L (98-107); Estimated GFR 93.12 (mL/min/1.73m2); Glucose 122 mg/dL (74-106); Lipase 26 U/L (16-77); Magnesium 1.8 mg/dL (1.8-2.4); Potassium 4.4 mmol/L (3.5-5.1); Sodium 143 mmol/L (136-145); TSH (W/Ref FT4) 1.73 uIU/mL (0.36-3.74); Total Protein 8.2 g/dL (6.4-8.2)
[2022-12-20 14:56] LABS: COVID-19 PCR Negative (Negative)
== END 2022-12-20 16:42 | disposition home or self-care (01) ==
PROVIDERS: Emergency Medicine; Emergency Provider Emergency Medicine; PCP Family Medicine
DX: R10.31 Right lower quadrant pain (principal); Z20.822 Contact with and (suspected) exposure to COVID-19
CPT/HCPCS: 80053; 81025; 83690; 87635; 96361; 96374; 99284; 74176; 83735; 84443; 85025; J0131

== ENCOUNTER 2023-02-16 16:19 | Outpatient (REF) | payer BC, MEDICAID, SELFPAY | END 2023-02-16 16:20 | disposition home or self-care (01) | LOC: LBN 16:19 | PROVIDERS: PCP Family Medicine; Visit Provider Physician Assistant Medical | DX: J02.9 Acute pharyngitis, unspecified (principal) | CPT/HCPCS: 87070 ==

== ENCOUNTER 2023-06-06 13:19 | Emergency (ER) | payer BC, MEDICAID, SELFPAY ==
[2023-06-06 13:28] VITALS: BP 141/75; PULSE 97; RESP 20; TEMP 37; O2SAT 96
--- NOTE | 2023-06-06 13:39 | ED.GENADUL_ITS ---
Discharge Plan Disposition Patient Disposition: Home Condition: Stable Discharge Details Clinical Impression: Malaise, Hyperglycemia Primary Care Provider: Nicky Brewster V ED Provider: Kraig Galloway Home Meds and New Rx's Prescriptions: Continued sucralfate [Carafate] 1 GM tablet 1 g PO PRN PRN Mirena 20 mcg/24 hr (5 years) intrauterine device 1 insert IY ONCE Patient Comments: 09/13/2018; [id number], Exp 01/2021 colestipol 1 gram tablet 1 g PO ONCE PRN (Reason: Indigestion) Rx Instructions: 1-2 tabs po as directed 1-2 times a day, 2-3 hours before or after meal duloxetine 30 mg capsule,delayed release(DR/EC) 60 mg PO DAILY ergocalciferol (vitamin D2) [Vitamin D2] 50,000 UNITS capsule 1 tab PO DIRECTED Rx Instructions: in winter only as per pt cetirizine 10 MG tablet 10 mg PO DAILY epinephrine [EpiPen 2-Don] 0.3 MG/0.3 ML auto-injector 0.3 mg IJ PRN PRNQty: 1 0RF Patient Comments: pt has not had to use this 01/23/16 clindamycin HCl 300 mg capsule 1 cap PO TID PRN (Reason: Inflammation) Patient Comments: TAKE ONE CAPSULE BY MOUTH THREE TIMES A DAY FOR 7 DAYS buspirone 15 mg tablet 15 mg PO BID metformin 500 mg tablet extended release 24 hr 500 tab PO DAILY Patient Comments: TAKE ONE TABLET BY MOUTH EVERY DAY Discharge Instructions Instructions: Diabetic Hyperglycemia (ED) Additional Instructions: * follow up with your primary care provider within 1 week * * if you feel more ill, have worsening symptoms or difficulty breathing return to the emergency department Medical Decision Making 43 yo female with hx of DM on insulin and metformin, hasn't had trulicity for 3 weeks, comes in with chief complaint of feeling fatigued and her blood sugar was 190 prior to arrival. Denies fevers, chills, chest pain, dyspnea, vomiting. She states she also has irritable bowel and has had some intermittent abdominal cramping, has no pain now. She is caox4, does keep her eyes closed during most of the h and p. She has no focal deficits on exam, no abdominal tenderness. Suspect hyperglycemia as a cause for her symptoms, will proceed with cbc, cmp, vbg, ua and treat with a liter of fluids and reassess. She has no tenderness on abdominal exam so do not feel imaging of the abdomen is indicated. Pt feeling better, sitting up using her phone in no distress, labs benign other then mild hyperglycemia. She is stable for d/c, advised to f/u with pcp and return precautions given Differential Diagnosis Differential Diagnosis: anemia, dka, hyperglycemia HPI General Mode of arrival: ambulatory . Date/Time Provider Initiated Documentation: 06/06/23 13:25 . Limitations to Documentation: no limitations . Information obtained by: patient . History of Present Illness 43 year old F presents to the emergency department with the chief complaint of fatigued, described as moderate, Patient started experiencing this day(s) (1) and it has been constant. No exacerbating factors reported . Patient notes denies fever/chills, shortness of breath and syncope. Patient did receive the following treatments prior to arrival, none Related Data Home Medications Medication Instructions Recorded Confirmed ergocalciferol (vitamin D2) 1,250 1 tab PO DIRECTED 06/22/14 06/06/23 mcg (50,000 unit) capsule (Vitamin D2) cetirizine 10 mg tablet 10 mg PO DAILY 01/20/15 06/06/23 epinephrine 0.3 mg/0.3 mL 0.3 mg (0.3 mL) IJ PRN PRN #1 mL 01/21/15 06/06/23 injection, auto-injector (EpiPen 2-Don) sucralfate 1 gram tablet (Carafate) 1 g PO PRN PRN 12/01/16 06/06/23 levonorgestrel 21 mcg/24 hours (8 1 insert intrauterine ONCE 09/18/18 06/06/23 yrs) 52 mg intrauterine device (Mirena) buspirone 15 mg tablet 15 mg PO BID 03/14/22 06/06/23 metformin 500 mg tablet,extended 500 tab PO DAILY 06/23/22 06/06/23 release 24 hr clindamycin HCl 300 mg capsule 1 cap PO TID PRN Inflammation 10/05/22 06/06/23 colestipol 1 gram tablet 1 g PO ONCE PRN Indigestion 01/01/23 06/06/23 duloxetine 30 mg capsule,delayed 60 mg PO DAILY 01/01/23 06/06/23 release Previous Rx's Medication Instructions Recorded epinephrine 0.3 mg/0.3 mL 0.3 mg (0.3 mL) IJ PRN PRN #1 mL 01/21/15 injection, auto-injector (EpiPen 2-Don) Allergies Allergy/AdvReac Type Severity Reaction Status Date / Time apricot Allergy Severe swelling Unverified 01/16/23 10:39 of lips and throat cholestyramine Allergy Severe sores in Unverified 01/16/23 10:39 [From Questran] mouth and throat fluoxetine [From Prozac] Allergy Severe Verified 01/16/23 10:39 ibuprofen Allergy Severe high dose Unverified 01/16/23 10:39 causes extreme swelling loratadine Allergy Severe Verified 01/16/23 10:39 naproxen Allergy Severe Verified 01/16/23 10:39 peach Allergy Severe swelling Unverified 01/16/23 10:39 lips and throat sertraline [From Zoloft] Allergy Severe Verified 01/16/23 10:39 sucrose [From Questran] Allergy Severe sores in Unverified 01/16/23 10:39 mouth and throat sumatriptan [From Imitrex] Allergy Severe Verified 01/16/23 10:39 tree nut Allergy Severe Unverified 01/16/23 10:39 banana Allergy Intermediate Unverified 01/16/23 10:39 ivermectin Allergy Intermediate leukocytoclastic Unverified 01/16/23 10:39 vasculitis penicillamine Allergy Intermediate hives,swell Unverified 01/16/23 10:39 ing Penicillins Allergy Intermediate hives, Unverified 01/16/23 10:39 swelling venlafaxine HCl Allergy Intermediate UNKNOWN Unverified 01/16/23 10:39 [From Effexor] amoxicillin [From Augmentin] Allergy Mild Verified 01/16/23 10:39 clavulanic acid Allergy Mild Verified 01/16/23 10:39 [From Augmentin] doxycycline Allergy Mild I don't Unverified 01/16/23 10:39 tolerate it methocarbamol Allergy Mild Verified 01/16/23 10:39 sulfamethoxazole Allergy Mild macular Verified 01/16/23 10:39 [From Bactrim] rash trimethoprim [From Bactrim] Allergy Mild macular Verified 01/16/23 10:39 rash apple Allergy Swelling/Ed Unverified 01/16/23 10:39 chris montelukast sodium AdvReac Severe facial Unverified 01/16/23 10:39 [From Singulair] swelling, itching, depression bupropion HCl AdvReac Intermediate visual Unverified 01/16/23 10:39 [From Wellbutrin] disturbances latex AdvReac Intermediate Skin Rash Unverified 01/16/23 10:39 walnut Allergy Severe swelling Uncoded 01/16/23 10:39 tongue and throat General Stated Complaint: Diabetes SUJATA: 4 Review of Systems All systems reviewed & are unremarkable except as noted in HPI and below Constitutional Constitutional: Denies chills and Denies fever(s) Cardiovascular Cardiovascular: Denies chest pain and Denies dyspnea Respiratory Respiratory: Denies cough and Denies dyspnea Genitourinary Genitourinary: Denies dysuria Integumentary/Breasts Skin/Breast: Denies rash PFSH All Active Problems (Updated 06/06/23 @ 14:25 by Kraig Galloway MD) Malaise (Acute) Hyperglycemia (Acute) IUD (intrauterine device) in place (Acute) Type II diabetes mellitus (Acute) Ventral hernia (Acute) Right lower quadrant abdominal pain (Acute) Skin rash (Acute) After beginning Bactrim DS for labial abscess. Patient was counseled this was a allergic reaction and to refrain from Bactrim DS in the future. Vaginal charles (Acute) History of rupture of uterus (Acute) History of section (Chronic) Polycystic ovarian syndrome (Acute) Advanced maternal age risk, currently not (Acute) Abdominal pain (Acute) Hernia (Chronic) Adrenal adenoma (Acute) Patellar tendonitis of left knee (Acute) Morbid obesity (Acute) Chronic fatigue (Acute) Snoring (Acute) Poor sleep (Acute) B-complex deficiency (Chronic) GERD (gastroesophageal reflux disease) (Chronic) Galactorrhea (Chronic) Hydradenitis (Chronic) IBS (irritable bowel syndrome) (Chronic) Neuropathic pain (Chronic) Dysphagia (Chronic) Hiatal hernia (Chronic) Screening for STD (sexually transmitted disease) (Acute 11/23/15) Migraine (Acute 03/05/15) Labial abscess (Acute 06/05/17) Fibromyalgia (Acute 03/05/15) Endometritis (Acute 11/23/15) Dry eye (Acute 03/05/15) Depression (Acute 03/05/15) BMI 45.0-49.9, adult (Acute 03/05/15) Surgical History section History of cholecystectomy Family History Other Hydradenitis Ingrown hair Social History Smoking/Tobacco Use Status: Never Smoking risk assessment performed?: Yes Alcohol Intake: current Alcohol Intake frequency: holidays/special occasions only Drug use: Never Substance use type: does not use Housing: apartment Number of Children: 2 Current gender identity: female Do you feel safe at home: Yes Do you feel safe in your relationship?: Yes Female Reproductive History Menstrual control method: progestin IUCD Exam Resp Auscultation: clear to auscultation bilaterally Cardio Jugular venous pressure: no JVD Heart Sounds: no murmurs GI Palpation: soft and nontender Course Vital Signs Vital signs: Vital Signs Temperature 37.0 C 06/06/23 13:28 Pulse 97 H 06/06/23 13:28 Respiratory Rate 20 06/06/23 13:28 Blood Pressure 141/75 H 06/06/23 13:28 Pulse Oximetry 96 06/06/23 13:28 Temperature 37.0 C 06/06/23 13:28 Temperature Source Oral 06/06/23 13:28 Pulse 97 H 06/06/23 13:28 Respiratory Rate 20 06/06/23 13:28 Respiratory Effort Normal 06/06/23 13:31 Blood Pressure 141/75 H 06/06/23 13:28 Blood Pressure Position Sitting 06/06/23 13:28 Pulse Oximetry 96 06/06/23 13:28 Oxygen Delivery Method Room Air 06/06/23 13:28 Oxygen Flow Rate 0 06/06/23 13:28 Pain Level 0 06/06/23 13:28 PAWSS Have you Been Recently Intoxicated or Drunk Within the Last 30 days?: No Have you Ever Experienced Previous Episodes of Alcohol Withdrawal?: No Have you ever Experienced Withdrawal Seizures?: No Have you ever Experienced Delirium Tremens(DT)s?: No Have you ever undergone Alcohol Rehabilitation Treatment (i.e, inpt ot outpatient treatment programs)?: No Have you ever Experienced Blackouts?: No Have you ever Combined Alcohol with other Downers within the last 90 days?: No Have you ever Combined Alcohol with any other Substance of Abuse during the last 90 days?: No Positive Blood Alcohol level on Presentation? [PCS.BAL]: No Evidence of Increased Autonomic Activity (i.e. HR>120, tremor, sweating, agitation, nausea)?: No Result: 0
[2023-06-06 14:18] LABS: Abs Immature Grans 0.03 10^3/uL (0.0-0.06); Absolute Basophil Count 0.04 10^3/uL (0.0-0.2); Absolute Eosinophil Count 0.15 10^3/uL (0.0-0.7); Absolute Lymphocyte Count 2.94 10^3/uL (1.2-3.4); Absolute Monocyte Count 0.44 10^3/uL (0.1-0.8); Absolute Neutrophil Count 6.14 10^3/uL (1.2-6.7); BE (Venous) 2 mmol/L (-2-3); Basophils % 0.4; Eosinophils % 1.5; HCO3 (Venous) 28 mmol/L (23-28); HCT 40.3 % (36.0-46.0); Immature Grans % 0.3; Lymphocytes % 30.2; MCH 27.8 pg (27.0-33.0); MCHC 32.3 % (32.0-36.0); MCV 86 fL (80-95); MPV 8.8 fL (8.0-11.0); Monocytes % 4.5; Neutrophils % 63.1; O2 Sat (Venous) 64 %; Platelet Count 321 10^3/uL (130-400); RBC 4.67 10^6/uL (3.93-5.22); RDW 14.8 % (11.7-14.6); RDW-SD 47.1 fL; TCO2 (Venous) 26 mmol/L (24-29); WBC 9.74 10^3/uL (4.4-10.8); pCO2 (Venous) 50 mmHg (41-51); pH (Venous) 7.36 (7.31-7.41); pO2 (Venous) 34 mmHg
[2023-06-06 14:21] LABS: ESR 70 mm/hr (0-20)
[2023-06-06 14:31] LABS: C-Reactive Protein 4.62 mg/dL (0.0-0.3)
[2023-06-06] MEDS: Normal Saline 1,000 ML 1000 ML IV (14:43)
[2023-06-06 14:44] LABS: ALT 15 U/L (14-59); AST 11 U/L (15-37); Albumin 3.2 g/dL (3.4-5.0); Alkaline Phosphatase 120 U/L (46-116); Anion Gap 6.5 mmol/L (3-11); BUN 13 mg/dL (7-18); Bilirubin, Total 0.3 mg/dL (0.2-1.0); CO2 28.5 mmol/L (21.0-32.0); CREATININE 0.8 mg/dL (0.55-1.02); Calcium 9.1 mg/dL (8.5-10.1); Chloride 104 mmol/L (98-107); Estimated GFR 92.54 (mL/min/1.73m2); Glucose 258 mg/dL (74-106); Magnesium 1.9 mg/dL (1.8-2.4); Sodium 139 mmol/L (136-145); TSH (W/Ref FT4) 1.33 uIU/mL (0.36-3.74); Total Protein 8.1 g/dL (6.4-8.2)
[2023-06-06 15:15] LABS: Bilirubin Negative (Negative); Blood Negative (Negative); Clarity Clear (Clear); Glucose >=1000 mg/dL (Negative); Ketones Negative (Negative); Leukocyte Esterase Negative (Negative); Nitrite Negative (Negative); Specific Gravity >= 1.030 (1.005-1.025); Urobilinogen 0.2 mg/dL (Up to 0.2); pH 5.5 (5-8)
[2023-06-06 15:40] VITALS: BP 144/79; PULSE 88; TEMP 36.3; O2SAT 96
[2023-06-07 20:21] LABS: Hemoglobin A1C 6.9 % (<5.7)
== END 2023-06-06 16:15 | disposition home or self-care (01) ==
PROVIDERS: Emergency Provider Emergency Medicine; PCP Family Medicine
DX: R53.81 Other malaise (principal); E11.65 Type 2 diabetes mellitus with hyperglycemia; Z79.4 Long term (current) use of insulin; T50.996A Underdosing of other drugs, medicaments and biological substances, initial encounter
CPT/HCPCS: 36415; 80053; 82805; 82962; 85652; 99283; 81003; 83036; 83735; 84443; 85025; 86140

== ENCOUNTER → 2023-12-10 03:15 | Outpatient (CLI) | payer MEDICAID, SELFPAY ==
--- NOTE | 2023-12-10 13:30 | DI.US_ITS ---
APPROVED REPORT EXAM: Comprehensive 2D, Doppler, and color-flow Echocardiogram Patient Location: Out-Patient Care Program Resident: Venkat Barton RDCS (AE) Indications: Rika danlos, chest pain Conclusion Normal left ventricular wall thickness and chamber size. Ejection fraction is 60%. Wall motion is n ormal Normal right ventricular size and function Both atria are normal in size There is no structural or hemodynamically significant valvular disease Trivial anterior echo-free space, likely fat pad Wall motion Left Ventricle The left ventricle is normal size. The left ventricular systolic function is normal. The left ventric ular ejection fraction is within the normal range. There is normal left ventricular wall thickness. T here is normal LV segmental wall motion. There is no ventricular septal defect visualized. LVEF is 60 %. Right Ventricle The right ventricle is normal size. The right ventricular systolic function is normal. Atria The left atrium size is normal. The right atrium size is normal. The interatrial septum is intact wit h no evidence for an atrial septal defect. Aortic Valve The aortic valve is normal in structure. Aortic valve is trileaflet. There is no aortic valvular sten osis. No aortic regurgitation is present. Mitral Valve The mitral valve is normal in structure. No evidence of mitral valve stenosis. Trace mitral regurgita tion. Tricuspid Valve The tricuspid valve is normal in structure. There is no tricuspid valve stenosis. Trace tricuspid reg urgitation. Unable to assess PA pressure. Pulmonic Valve Pulmonic valve is not well visualized. There is no pulmonic valvular regurgitation. Great Vessels The aortic root is normal in size. The ascending aorta is normal in size. IVC is normal in size and c ollapses >50% with inspiration. Pericardium Small anterior fat pad 2D Dimensions IVSD d PLAX 0.93 cm F: 0.6-1.0 Ao Root d 3.21 cm F: 2.7 - 3.3 LVPW d PLAX 0.85 cm F: 0.6 - 1.0 Ao Asc Diam d 3.24 cm F: 2.3 - 3.1 LVID d PLAX 5.01 cm F: 3.8 - 5.2 LVDs 3.41 cm F: 2.2 - 3.5 LV EF Teichholz 59.8 % FS 31.96 % LV EDV (Teich) 118.5 mL LV ESV (Teich) 47.6 mL Stroke Vol Index (Teich) 31.65 Auto EF LV EDV A4C 133.4 mL LV EDV A2C 59.1 mL LV EDV BP 91.6 mL LV ESV A4C 53.0 mL LV ESV A2C 23.9 mL LV ESV BP 35.4 mL LVEF(%) A4C 60.3 % LVEF(%) A2C 59.6 % LVEF(%) BP 61.3 % LV SV A4C 80.5 ml LV SV A2C 35.2 ml LV SV BP 56.2 ml LV CO A4C 8.0 L/min LV CO A2C 3.5 L/min LV CO BP 5.7 L/min HR A4C 99.18 BPM HR A2C 99.73 BPM LV EDV Index (BP) LA Volume LA Length A4C 4.9 cm LA Length A2C 4.7 cm LA Area A4C s 13.39 cm2 LA Area A2C s 10.45 cm2 LA Vol A4C A-L 30.94 mL LA Vol A2C A-L 19.56 mL LA Vol Biplane A-L 25.1 mL LA Vol/BSA A4C A-L LA Vol/BSA A2C A-L LA Vol/BSA BP A-L 11.2 mL/m2 LA Vol A4C MOD 30.0 mL LA Vol A2C MOD 18.6 mL LA Vol BP MOD 23.8 mL RA Volume RA Area A4C 7.5 cm2 RA ESV A4C (A-L) 13.3mL RA Vol/BSA A4C A-L RA Length A4C 3.6 cm RA ESV A4C (MOD) 13.5mL LV Diastology MV E' medial 0.088 (>0.07 m/s) MV E Vmax 0.67 (0.4-1.3 m/s) MV E/E' MED 7.59 (<14) MV A Vmax 0.90 (0.4-1.3 m/s) MV E' lateral 0.086 (>0.1 m/s) E/A Ratio 0.7 MV E/E' LAT 7.82 (<14) MV E' Average 0.087 m/s MV E/E'(average) 7.70 Aortic Valve AoV Vmax 1.24 m/s LVOT Vmax 1.14 m/s AoV Peak Grad 6.1 mmHg LVOT Peak Grad 5.2 mmHg AoV Area (Vmax) 3.27 cm2 LVOT VTI 0.245 m AoV VTI 0.203 m LVOT Mean Grad 2.5 mmHg AoV Mean Mike. 0.89 m/s LVOT SV 87.17 mL AoV Mean Grad 3.4 mmHg LVOT Diam s 2.10 cm AoV Area (VTI) 4.30 cm2 Velocity Ratio 0.92 Mitral Valve MV DT 139 (160-240 msec) Pulmonary Valve PV Vmax 1.12 (0.5-1.5 m/s) RVOT Vmax 0.69 m/s PV Peak Grad 5.1 mmHg RVOT Peak Gr. 1.9 mmHg PV Mean Mike 0.79 m/s RVOT VTI 0.128 m PV Mean Grad 2.8 mmHg RVOT Mean Gr. 1.0 mmHg
== END ==
PROVIDERS: PCP Family Medicine; Visit Provider Student in an Organized Health Care Education/Training Program
DX: Q79.69 Other Ehlers-Danlos syndromes (principal); R07.89 Other chest pain
CPT/HCPCS: 93306

== ENCOUNTER 2024-02-18 17:24 | Emergency (ER) | payer MEDICAID, SELFPAY ==
[2024-02-18 17:26] VITALS: BP 134/88; PULSE 99; RESP 18; TEMP 36.7; O2SAT 96
[2024-02-18 18:11] VITALS: BP 134/88; PULSE 99; RESP 18; TEMP 36.7; O2SAT 96
[2024-02-18 18:13] LABS: BE (Venous) 4 mmol/L (-2-3); HCO3 (Venous) 29 mmol/L (23-28); O2 Sat (Venous) 70 %; TCO2 (Venous) 26 mmol/L (24-29); pCO2 (Venous) 50 mmHg (41-51); pH (Venous) 7.37 (7.31-7.41); pO2 (Venous) 36 mmHg
[2024-02-18 18:14] LABS: Abs Immature Grans 0.04 10^3/uL (0.0-0.06); Absolute Eosinophil Count 0.16 10^3/uL (0.0-0.7); Absolute Lymphocyte Count 4.42 10^3/uL (1.2-3.4); Absolute Monocyte Count 0.68 10^3/uL (0.1-0.8); Absolute Neutrophil Count 6.21 10^3/uL (1.2-6.7); Basophils % 0.3 %; Eosinophils % 1.4 %; HGB 13.3 g/dL (11.2-15.7); Immature Grans % 0.3 %; Lymphocytes % 38.3 %; MCH 28.3 pg (27.0-33.0); MCHC 32.4 % (32.0-36.0); MCV 87 fL (80-95); MPV 8.9 fL (8.0-11.0); Monocytes % 5.9 %; Neutrophils % 53.8 %; Platelet Count 315 10^3/uL (130-400); RDW 13.6 % (11.7-14.6); RDW-SD 44.2 fL; WBC 11.55 10^3/uL (4.4-10.8)
[2024-02-18 18:15] LABS: Absolute Basophil Count 0.03 10^3/uL (0.0-0.2)
--- NOTE | 2024-02-18 18:24 | ED.GENADUL_ITS ---
Discharge Plan Disposition Patient Disposition: Home Discharge Details Clinical Impression: Poorly controlled type 2 diabetes mellitus Primary Care Provider: Nicky Brewster V ED Provider: Ilda Marie Home Meds and New Rx's Prescriptions: Continued sucralfate [Carafate] 1 GM tablet 1 g PO PRN PRN Mirena 20 mcg/24 hr (5 years) intrauterine device 1 insert IY ONCE Patient Comments: 09/13/2018; [id number], Exp 01/2021 colestipol 1 gram tablet 1 g PO ONCE PRN (Reason: Indigestion) Rx Instructions: 1-2 tabs po as directed 1-2 times a day, 2-3 hours before or after meal duloxetine 30 mg capsule,delayed release(DR/EC) 90 mg PO DAILY Patient Comments: Pt states she takes 90 mg daily - ML 02/18/24 mecobalamin (vitamin B12) 1,000 mcg tablet,chewable 1,000 mcg PO DAILY Omnaris 50 mcg spray,non-aerosol 2 spray intranasal DAILY Rx Instructions: into each nostril ergocalciferol (vitamin D2) [Vitamin D2] 50,000 UNITS capsule 1 tab PO DIRECTED Rx Instructions: in winter only as per pt cetirizine 10 MG tablet 10 mg PO DAILY epinephrine [EpiPen 2-Don] 0.3 MG/0.3 ML auto-injector 0.3 mg IJ PRN PRNQty: 1 0RF Patient Comments: pt has not had to use this 01/23/16 clindamycin HCl 300 mg capsule 1 cap PO TID PRN (Reason: Inflammation) Patient Comments: TAKE ONE CAPSULE BY MOUTH THREE TIMES A DAY FOR 7 DAYS buspirone 15 mg tablet 15 mg PO DAILY Patient Comments: Pt states she takes once daily - ML 02/18/24 metformin 500 mg tablet extended release 24 hr 500 tab PO DAILY Patient Comments: TAKE ONE TABLET BY MOUTH EVERY DAY Trulicity 0.75 mg/0.5 mL pen injector 0.75 mg SUBCUT QWEEK Patient Comments: INJECT 0.75MG UNDER THE SKIN ONCE WEEKLY Discharge Instructions Additional Instructions: Please call Dr. Brewster's office first thing in the morning to schedule follow- up appointment for discussion of management of your diabetes. Take your Trulicity first thing in the morning, as well as your metformin as scheduled. Continue taking all of your other prescribed medications. I encourage you to stay well-hydrated. Please consider meeting with a clinical educator to discuss lifestyle dietary modifications that may also help control her diabetes. Return to emergency care if develop new chest pains, shortness of breath, vomiting, severe abdominal pain, new confusion, or if you are very worried and need to be rechecked again immediately Referrals: Nicky Brewster MD [Primary Care Provider] - [facility] General Date/Time Provider Initiated Documentation: 02/18/24 17:34 . HPI Narrative: Cyn is a 43-year-old female with history of type II DM, obesity, and PCOS who presents to the emergency dept for evaluation of hyperglycemia. She reports she started feeling fatigued on , 5 days ago. She initially attributed this to situational factors such as going to bed late and waking up early. Her blood sugars have been in the 300-400 range, she admits that she checks them infrequently but has been checking them every couple of days for the last week. She is prescribed metformin and Trulicity, says she has not taken the Trulicity since September. She denies recent fever/chills, congestion, sore throat, cough, chest pain, nausea/vomiting, decreased p.o. intake, change in bowel function, dysuria. She does admit to polyphasia/polydipsia and polyuria. Denies history of DKA or HHS. She is a patient of Dr. Brewster, says she last saw her a couple of months ago. Denies HTN, HLD, or digestive disorders. She reports her last A1c was greater than 9. Related Data Home Medications Medication Instructions Recorded Confirmed ergocalciferol (vitamin D2) 1,250 1 tab PO DIRECTED 06/22/14 02/18/24 mcg (50,000 unit) capsule (Vitamin D2) cetirizine 10 mg tablet 10 mg PO DAILY 01/20/15 02/18/24 epinephrine 0.3 mg/0.3 mL 0.3 mg (0.3 mL) IJ PRN PRN #1 mL 01/21/15 02/18/24 injection, auto-injector (EpiPen 2-Don) sucralfate 1 gram tablet (Carafate) 1 g PO PRN PRN 12/01/16 02/18/24 levonorgestrel 21 mcg/24 hr (up to 1 insert intrauterine ONCE 12/05/18 05/06/24 8 years) 52 mg intrauterine device (Mirena) buspirone 15 mg tablet 15 mg PO DAILY 03/14/22 02/18/24 metformin 500 mg tablet,extended 500 tab PO DAILY 06/23/22 02/18/24 release 24 hr clindamycin HCl 300 mg capsule 1 cap PO TID PRN Inflammation 10/05/22 02/18/24 colestipol 1 gram tablet 1 g PO ONCE PRN Indigestion 01/01/23 02/18/24 duloxetine 30 mg capsule,delayed 90 mg PO DAILY 01/01/23 02/18/24 release ciclesonide 50 mcg nasal spray 2 spray intranasal DAILY 11/07/23 02/18/24 (Omnaris) mecobalamin (vitamin B12) 1,000 1,000 mcg PO DAILY 11/07/23 02/18/24 mcg chewable tablet dulaglutide 0.75 mg/0.5 mL 0.75 mg subcut QWEEK 02/18/24 02/18/24 subcutaneous pen injector (TrulicAtbrox) Previous Rx's Medication Instructions Recorded epinephrine 0.3 mg/0.3 mL 0.3 mg (0.3 mL) IJ PRN PRN #1 mL 01/21/15 injection, auto-injector (EpiPen 2-Don) Allergies Allergy/AdvReac Type Severity Reaction Status Date / Time apricot Allergy Severe swelling Unverified 02/18/24 18:15 of lips and throat cholestyramine Allergy Severe sores in Unverified 02/18/24 18:15 [From Questran] mouth and throat fluoxetine [From Prozac] Allergy Severe Other (See Verified 02/18/24 18:15 Comment) ibuprofen Allergy Severe high dose Unverified 02/18/24 18:15 causes extreme swelling loratadine Allergy Severe Other (See Verified 02/18/24 18:15 Comment) naproxen Allergy Severe Other (See Verified 02/18/24 18:15 Comment) peach Allergy Severe swelling Unverified 02/18/24 18:15 lips and throat sertraline [From Zoloft] Allergy Severe Other (See Verified 02/18/24 18:15 Comment) sucrose [From Questran] Allergy Severe sores in Unverified 02/18/24 18:15 mouth and throat sumatriptan [From Imitrex] Allergy Severe Other (See Verified 02/18/24 18:15 Comment) tree nut Allergy Severe Other (See Unverified 02/18/24 18:15 Comment) banana Allergy Intermediate Other (See Unverified 02/18/24 18:15 Comment) ivermectin Allergy Intermediate leukocytoclastic Unverified 02/18/24 18:15 vasculitis penicillamine Allergy Intermediate hives,swell Unverified 02/18/24 18:15 ing Penicillins Allergy Intermediate hives, Unverified 02/18/24 18:15 swelling venlafaxine HCl Allergy Intermediate UNKNOWN Unverified 02/18/24 18:15 [From Effexor] amoxicillin [From Augmentin] Allergy Mild Other (See Verified 02/18/24 18:15 Comment) clavulanic acid Allergy Mild Other (See Verified 02/18/24 18:15 [From Augmentin] Comment) dog dander Allergy Mild Other (See Verified 02/18/24 18:15 Comment) doxycycline Allergy Mild I don't Unverified 02/18/24 18:15 tolerate it house dust mite Allergy Mild Other (See Verified 02/18/24 18:15 Comment) methocarbamol Allergy Mild Other (See Verified 02/18/24 18:15 Comment) sulfamethoxazole Allergy Mild macular Verified 02/18/24 18:15 [From Bactrim] rash trimethoprim [From Bactrim] Allergy Mild macular Verified 02/18/24 18:15 rash apple Allergy Swelling/Ed Unverified 02/18/24 18:15 chris montelukast sodium AdvReac Severe facial Unverified 02/18/24 18:15 [From Singulair] swelling, itching, depression bupropion HCl AdvReac Intermediate visual Unverified 02/18/24 18:15 [From Wellbutrin] disturbances latex AdvReac Intermediate Skin Rash Unverified 02/18/24 18:15 walnut Allergy Severe swelling Uncoded 02/18/24 18:15 tongue and throat General Stated Complaint: GenMedical SUJATA: 3 Review of Systems Narrative: see HPI Exam Const General: cooperative, healthy appearing, comfortable and no acute distress Nutritional Appearance: obese HENMT Mouth: moist mucous membranes abnormal (tacky MM) Resp Effort & Inspection: normal respiratory effort and able to speak in complete sentences Auscultation: clear to auscultation bilaterally Cardio Rate: regular rate Rhythm: regular rhythm GI Inspection: normal to inspection and non-distended Palpation: soft, no guarding, not rigid and nontender Auscultation: normal bowel sounds Course Vital Signs Vital signs: Vital Signs Temperature 36.7 C 02/18/24 17:26 Pulse 99 H 02/18/24 17:26 Respiratory Rate 18 02/18/24 17:26 Blood Pressure 134/88 02/18/24 17:26 Pulse Oximetry 96 02/18/24 17:26 Temperature 36.7 C 02/18/24 18:11 Temperature Source Tympanic 02/18/24 18:11 Pulse 99 H 02/18/24 18:11 Respiratory Rate 18 02/18/24 18:11 Respiratory Effort Normal, Non-Labored 02/18/24 18:11 Respiratory Depth Normal 02/18/24 18:11 Respiratory Pattern Normal 02/18/24 18:11 Blood Pressure 134/88 02/18/24 18:11 Blood Pressure Position Sitting 02/18/24 18:11 Pulse Oximetry 96 02/18/24 18:11 Oxygen Delivery Method Room Air 02/18/24 18:11 Oxygen Flow Rate 0 02/18/24 18:11 Pain Level 6 02/18/24 18:11 Lab/Test Results Lab/Test Results: Laboratory Tests Range/Units 02/18/24 18:08 WBC (4.4-10.8) 10^3/uL 11.55 H RBC (3.93-5.22) 10^6/uL 4.70 Hgb (11.2-15.7) g/dL 13.3 Hct (36.0-46.0) % 41.0 MCV (80-95) fL 87 MCH (27.0-33.0) pg 28.3 MCHC (32.0-36.0) % 32.4 RDW (11.7-14.6) % 13.6 Plt Count (130-400) 10^3/uL 315 MPV (8.0-11.0) fL 8.9 Immature Gran % % 0.3 Neutrophils % % 53.8 Lymphocytes % % 38.3 Monocytes % % 5.9 Eosinophils % % 1.4 Basophils % % 0.3 Nucleated RBC % (0.0-0.3) % 0.0 Absolute Neutrophils (1.2-6.7) 10^3/uL 6.21 Absolute Lymphocytes (1.2-3.4) 10^3/uL 4.42 H Absolute Monocytes (0.1-0.8) 10^3/uL 0.68 Absolute Eosinophils (0.0-0.7) 10^3/uL 0.16 Absolute Basophils (0.0-0.2) 10^3/uL 0.03 VBG pH (7.31-7.41) 7.37 VBG pCO2 (41-51) mmHg 50 VBG pO2 mmHg 36 VBG HCO3 (23-28) mmol/L 29 H VBG Total CO2 (24-29) mmol/L 26 VBG O2 Saturation % 70 VBG Base Excess (-2-3) mmol/L 4 H Medical Decision Making Cyn is a 43-year-old female with history of type II DM, obesity, and PCOS who presents to the emergency dept for evaluation of hyperglycemia. She reports she started feeling fatigued on , 5 days ago. She initially attributed this to situational factors such as going to bed late and waking up early. Her blood sugars have been in the 300-400 range, she admits that she checks them infrequently but has been checking them every couple of days for the last week. She is prescribed metformin and Trulicity, says she has not taken the Trulicity since September. She denies recent fever/chills, congestion, sore throat, cough, chest pain, nausea/vomiting, decreased p.o. intake, change in bowel function, dysuria. She does admit to polyphasia/polydipsia and polyuria. Denies history of DKA or HHS. She is a patient of Dr. Brewster, says she last saw her a couple of months ago. Denies HTN, HLD, or digestive disorders. She reports her last A1c was greater than 9. Physical exam remarkable for slightly tacky mucous membranes. Easy work of breathing, lung sounds clear bilaterally. Normal heart sounds. Abdomen is soft, nondistended, nontender to palpation with normal active bowel sounds. Moving all extremities equally. DDx includes but is not limited to: Hyperglycemia due to poorly controlled T2DM, DKA/HHS, dehydration, electrolyte imbalance. No obvious locus of infection I independently interpreted the following tests: CBC notable for mild leukocyt osis, white cell count 11.55. VBG unremarkable. CMP reassuring. A1c is very elevated at 10.4. UA notable for trace ketones and greater than 1000 glucose. While in the emergency department Cyn received 1 L normal saline. As labs are all unremarkable, recommend use of Trulicity as prescribed. Cyn says she is waiting on it to be delivered from the pharmacy, advise follow-up with pharmacy and PCP for medication management. Reviewed red flags indicate need for return to emergency care. She is agreeable with plan of care. Quality:[facility] Health Related Social Needs: No Data to Display [facility] All Active Problems (Updated 02/18/24 @ 19:07 by Ilda Naranjo) Poorly controlled type 2 diabetes mellitus (Acute) IUD (intrauterine device) in place (Acute) Type II diabetes mellitus (Acute) Ventral hernia (Acute) Right lower quadrant abdominal pain (Acute) Skin rash (Acute) After beginning Bactrim DS for labial abscess. Patient was counseled this was a allergic reaction and to refrain from Bactrim DS in the future. Vaginal charles (Acute) History of rupture of uterus (Acute) History of section (Chronic) Polycystic ovarian syndrome (Acute) Advanced maternal age risk, currently not (Acute) Abdominal pain (Acute) Hernia (Chronic) Adrenal adenoma (Acute) Patellar tendonitis of left knee (Acute) Morbid obesity (Acute) Chronic fatigue (Acute) Snoring (Acute) Poor sleep (Acute) B-complex deficiency (Chronic) GERD (gastroesophageal reflux disease) (Chronic) Galactorrhea (Chronic) Hydradenitis (Chronic) IBS (irritable bowel syndrome) (Chronic) Neuropathic pain (Chronic) Dysphagia (Chronic) Hiatal hernia (Chronic) Screening for STD (sexually transmitted disease) (Acute 11/23/15) Migraine (Acute 03/05/15) Labial abscess (Acute 06/05/17) Fibromyalgia (Acute 03/05/15) Endometritis (Acute 11/23/15) Dry eye (Acute 03/05/15) Depression (Acute 03/05/15) BMI 45.0-49.9, adult (Acute 03/05/15) Medical History (Updated 02/18/24 @ 19:07 by Ilda Naranjo) Bone spur of right foot Pain in left shoulder Right foot pain COVID-19 Panic disorder Knee pain, left Carpal tunnel syndrome Lateral epicondylitis Acquired talipes planus Hx gestational diabetes Exposure to communicable disease Elevated blood pressure reading Abdominal pain in female Cough Dyspnea Loss of sense of smell Other amnesia Rika-Danlos syndrome Scoliosis Cervical radiculopathy Acute joint pain Inflammatory polyarthropathy Suppurative hidradenitis Hirsutism Eczema Galactorrhea during Vulvodynia Hypertrophy of breast History of IBS Chronic sinusitis Visual disturbance Brachial plexopathy Autistic disorder Postconcussion syndrome Adjustment disorder Anxiety Major depression, chronic Vitamin B deficiency Hx of herpes zoster Surgical History (Updated 10/31/23 @ 14:24 by Stacie Beck) H/O hernia repair History of cholecystectomy section Family History (Updated 10/31/23 @ 14:29 by Stacie Beck) Mother Hypertension Diabetes Heart disease Father Diabetes Glaucoma Hypertension Alcohol use disorder Sister Fibromyalgia ITP secondary to infection Diabetes Sister SLE (systemic lupus erythematosus related syndrome) Other Hydradenitis Ingrown hair Social History Smoking/Tobacco Use Status: Never Smoking risk assessment performed?: Yes Alcohol Intake: current Alcohol Intake frequency: holidays/special occasions only Drug use: Never Substance use type: does not use Housing: apartment Number of Children: 2 Current gender identity: female Do you feel safe at home: Yes Do you feel safe in your relationship?: Yes Female Reproductive History Menstrual control method: progestin IUCD
[2024-02-18 18:27] LABS: Hemoglobin A1C 10.4 % (<5.7)
[2024-02-18 18:30] LABS: ALT 23 U/L (14-59); AST 10 U/L (15-37); Albumin 3.4 g/dL (3.4-5.0); Alkaline Phosphatase 133 U/L (46-116); Anion Gap 10.3 mmol/L (3-11); BUN 12 mg/dL (7-18); Bilirubin, Total 0.2 mg/dL (0.2-1.0); CO2 28.7 mmol/L (21.0-32.0); CREATININE 0.9 mg/dL (0.55-1.02); Calcium 9.2 mg/dL (8.5-10.1); Chloride 99 mmol/L (98-107); Estimated GFR 80.34 (mL/min/1.73m2); Glucose 291 mg/dL (74-106); Sodium 138 mmol/L (136-145)
[2024-02-18 18:38] LABS: Bilirubin Negative (Negative); Blood Negative (Negative); Clarity Clear (Clear); Glucose >=1000 mg/dL (Negative); Ketones Trace mg/dL (Negative); Leukocyte Esterase Negative (Negative); Nitrite Negative (Negative); pH 5.5 (5-8)
[2024-02-18] MEDS: Normal Saline 1,000 ML 1000 ML IV (18:41)
[2024-02-18 18:44] LABS: Bacteria Negative HPF (Negative); C & S Indicated? No; Casts Negative LPF (Negative); Crystals Negative HPF (Negative); Epithelial Cells Few HPF (Negative); Mucus Negative (Negative); RBC 0-2 HPF (0-2); WBC 0-2 HPF (0-5)
[2024-02-18 19:28] VITALS: BP 122/70; PULSE 83; RESP 16; TEMP 37.5; O2SAT 99
--- NOTE | 2024-02-18 23:59 | NUR.NOTE ---
Pt placed on care management referral list to be seen within 1 week by PCP for diabetes management
== END 2024-02-18 19:33 | disposition home or self-care (01) ==
PROVIDERS: Emergency Provider Nurse Practitioner Family; PCP Family Medicine
DX: E11.65 Type 2 diabetes mellitus with hyperglycemia (principal); E28.2 Polycystic ovarian syndrome; E66.01 Morbid (severe) obesity due to excess calories
CPT/HCPCS: 36415; 80053; 81025; 82805; 82962; 99283; 81003; 81015; 83036; 85025

== ENCOUNTER 2024-05-28 10:27 | Emergency (ER) | payer MEDICAID, SELFPAY ==
[2024-05-28 10:29] VITALS: BP 173/84; PULSE 103; RESP 12; TEMP 36.5; O2SAT 96
--- OUTSIDE RECORDS SUMMARY | 2024-05-28 10:35 | XMS_ITS | Clinical Summary ---
Author Organization [facility] Address [address] [place] [address] Care Team Providers Care School Laboratory Technician Name Role Phone Nicky Brewster MD Primary Care Provider [phone] Allergies Active Allergy Reactions Criticality Noted Date Comments Allergenic Extracts 11/08/2016 [place] 06/04/2023 Apple 02/06/2021 Other reaction(s): Swelling/Edema Apricot High 02/06/2021 Other reaction(s): swelling of lips and throat Banana Medium 02/06/2021 Bupropion Hcl High 11/08/2016 Other reaction(s): visual disturbances Hallucination and unable to sleep, AOF Cholestyramine Rash High 04/21/2019 Other reaction(s): AOF, sores in mouth and throat Clavulanic Acid Low 10/10/2019 Other reaction(s): U Covid-19 Vac, Bv (Pfizer)(Pf) Anaphylaxis High 07/10/2023 Dog Hair Standardized Allergenic Extract 11/08/2016 Doxycycline Low 11/08/2016 Other reaction(s): I don't tolerate it, Sensitive, AOF Fluoxetine High 01/16/2023 Hazelnut 06/04/2023 Ibuprofen High 04/21/2019 Other reaction(s): 800mg - swelling, itching, AOF, high dose causes extreme swelling Ivermectin Rash High 04/21/2019 Other reaction(s): AOF, leukocytoclastic vasculitis Latex 04/21/2019 Other reaction(s): itching Loratadine High 01/16/2023 Methocarbamol 11/08/2016 Other reaction(s): Other (See Comments) Sexual Dysfunction Montelukast High 11/08/2016 Other reaction(s): facial swelling, itching, depression, Facial pruritis, [place] High 02/06/2021 Other reaction(s): swelling lips and throat Penicillamine Medium 02/06/2021 Other reaction(s): hives,swelling Penicillins 04/21/2019 Other reaction(s): Unknown Pollen Extracts 11/08/2016 Sertraline High 01/16/2023 Sucrose High 02/06/2021 Other reaction(s): sores in mouth and throat Sulfamethoxazole Low 09/22/2021 Other reaction(s): AOF, macular rash Sumatriptan Succinate Palpitations 11/08/2016 Tree Nut Anaphylaxis High 04/21/2019 Trimethoprim Low 09/22/2021 Other reaction(s): AOF, macular rash Venlafaxine 04/21/2019 Other reaction(s): Unknown [place] High 02/06/2021 Other reaction(s): swelling tongue and throat Medications Medication Sig Dispensed Refills Start Date End Date Status levonorgestrel (MIRENA) 20 mcg/24 hours (5 yrs) 52 mg IUD 1 ea by intrauteral administration once Active colestipol (COLESTID) 1 gram tablet 1 tab(s) orally 1 times a day Active clindamycin (CLINDAGEL) 1 % gel 1 ayad applied topically 2 times a day Active cetirizine (ZYRTEC) 10 mg tablet 1 cap(s) orally once a day Active DULoxetine (CYMBALTA) 30 mg delayed release capsule TAKE ONE CAPSULE BY MOUTH EVERY DAY INCREASE TO TWO TIMES A DAY IN 2 WEEKS 08/27/2020 Active busPIRone (BUSPAR) 15 mg tablet Take 1 Tablet by mouth 2 times daily. 04/21/2023 Active TRULICITY 1.5 mg/0.5 mL subcutaneous pen once a week. 04/05/2023 Active EPINEPHrine (EPIPEN) 0.3 mg/0.3 mL injection INJECT INTO THE MUSCLE DIRECTED NEEDED 11/18/2022 Active OMNARIS 50 mcg spray,non-aerosol SPRAY 2 SPRAYS INTO BOTH NOSTRILS ONCE A DAY NEEDED 03/18/2023 Active metFORMIN (GLUCOPHAGE-XR) 500 mg ER tablet Take 1 Tablet by mouth daily. 03/06/2023 Active ONETOUCH DELICA PLUS LANCET 33 gauge misc USE ONE LANCET TWO TIMES A DAY DIRECTED 03/07/2023 Active ONETOUCH VERIO TEST STRIPS test strips USE ONE STRIP VIA METER TWO TIMES A DAY 03/06/2023 Active ONETOUCH VERIO FLEX METER USE DIRECTED ONCE DAILY TO CHECK BLOOD SUGAR 06/23/2022 Active sucralfate (CARAFATE) 1 gram tablet Take 1 Tablet by mouth 4 times daily. Active cyanocobalamin (VITAMIN B-12) 1,000 mcg tablet Take 1 Tablet by mouth daily. 10/28/2023 Active ergocalciferol (DRISDOL; VITAMIN D2) 1,250 mcg (50,000 unit) capsule Take 1 Capsule by mouth once a week. 08/16/2023 Active Active Problems Problem Noted Date Diagnosed Date Scapulalgia 07/11/2023 Ventral hernia 07/11/2023 Eczema 07/11/2023 Chronic pain of left knee 07/11/2023 Anxiety 07/11/2023 Type 2 diabetes mellitus (HCC-CMS) 07/11/2023 Adrenal adenoma 07/11/2023 Chronic sinusitis 07/11/2023 Hirsutism 07/11/2023 Autism spectrum disorder 07/11/2023 Drug-induced anaphylaxis 07/11/2023 Hidradenitis 07/11/2023 Post concussion syndrome 07/11/2023 Thoracic outlet syndrome 07/11/2023 Anosmia 07/11/2023 Lateral epicondylitis of right elbow 07/11/2023 Intermittent dysphagia 07/11/2023 Neuropathic pain 07/11/2023 Pes planus 07/11/2023 Scoliosis 07/11/2023 GERD (gastroesophageal reflux disease) Dry eye syndrome of both eyes 07/11/2023 Migraine 07/11/2023 Depression 07/11/2023 Sprain of left middle finger 05/18/2023 Vitamin D deficiency 10/19/2019 Vitamin B12 deficiency 10/19/2019 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 on-steroidal anti-inflammatories (nsaid) 10/19/2019 Irritable bowel syndrome with diarrhea 0 Inflammatory polyarthropathy (HCC-CMS) 0 Fibromyalgia 10/19/2019 PCOS (polycystic ovarian syndrome) 10/19/2019 Obesity 10/19/2019 Surgical History Surgery Date Site/Laterality Comments SECTION 2001, 2005 CHOLECYSTECTOMY, LAPAROSCOPIC 10/15/2005 - 10/14/2006 TONSILLECTOMY Medical History Medical History Date Comments Gestational diabetes Shingles 2009 Carpal tunnel syndrome on both sides Migraine Family History Medical History Relation Comments ADHD Daughter Autism spectrum disorder Daughter Diabetes Father Heart Disease Mother Rheumatologic Disease Sister 1 Diabetes Sister 2 Migraines Sister 2 ADHD Son Relation Status Comments Daughter Alive Father Alive Mother Alive Other Alive Sister 1 Sister 2 Alive Son Alive Social History Tobacco Use Types Packs/Day Years Used Date Smoking Tobacco: Never Smokeless Tobacco: Never Tobacco Cessation:Counseling Given: Not Answered Alcohol Use Standard Drinks/Week Comments Yes 1 (1 standard drink = 0.6 oz pur e alcohol) Interpersonal Safety Answer Date Record ed Physically Hurt Never 05/16/2020 Verbally Threaten Not on file 05/16/2020 Sex and Gender Information Value Date Recorded Sex Assigned at Not on file Gender Identity Genderqueer/Neutral 03/05/2023 1 4:56 EDT Sexual Orientation Something else 03/05/2023 14 :56 EDT Obstetrics History Last Filed Vital Signs Vital Sign Reading Time Taken Comments Blood Pressure 132/80 11/01/2023 1607 EST Pulse 88 11/01/2023 1607 EST Temperature 36.3 ??C (97.4 ??F) 11/01/2023 1607 EST Respiratory Rate 12 07/25/2023 1443 EDT Oxygen Saturation 96% 06/20/2023 2316 EDT Inhaled Oxygen Concentration - - Weight 131.1 kg (289 lb) 11/01/2023 1607 EST Height 157.5 cm (5' 2) 11/01/2023 1607 EST Body Mass Index 52.86 11/01/2023 1607 EST Plan of Treatment Health Maintenance Due Date Last Done Comments Eye Exam 1978 Foot Exam 1978 Hepatitis C Screen 1978 Microalbumin/Creatinine Ratio 1978 Lipid Profile Screening (Cholesterol) 1981 Hepatitis B Vaccine (1 of 3 - 19+ 3-dose series) 05/30 COVID-19 Vaccine ( season) 2023 Hemoglobin A1C (Ha1C) 06/16/2023 12/14/2022 Procedures Procedure Name Priority Date/Time Associated Diagnosis Comments HEMOGLOBIN A1C Routine 12/14/2022 16:40 EST Type 2 diabetes mellitus without complication, 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 Blood VENOUS BLOOD / Unknown Venipuncture / Unknown 12/14/2022 16:40 EST 12/14/2022 16:41 EST Nicky Brewster MD CHEMISTRY & BLOOD GA S ORDERABLES [facility] [address] [place] [address] from Last 3 Months or Most Recently Relevant to Health Maintenance Care Teams School Laboratory Technician Relationship Specialty Start Date End Date Nicky Brewster MD [address] [place] [id number] PCP - General 12/24/16
--- OUTSIDE RECORDS SUMMARY | 2024-05-28 10:35 | XMS_ITS | Encounter Summary ---
Author Organization [facility] Address [address] [place] [address] Care Team Providers Care Metal Fabricating Inspector Name Role Phone Nicky Brewster MD Primary Care Provider [phone] Reason for Referral * Radiology Services (Routine/Next Available) - Authorization Not Required Specialty Diagnoses / Procedures Referred By Contac t Referred To Contact Diagnoses Rika-Danlos, hypermobile type Fibromyalgia Seropositive rheumatoid arthritis (HCC-CMS) Procedures XR RHEUMATOLOGY BILATERAL HANDS Preet Munoz MBBS [address] [address] [facility] Referral ID Status Reason Start Date Expiration Date Visits Requested Visits Authorized [id number] Authorization Not Required 3 1 1 Reason for Visit * Radiology Services (Routine/Next Available) - Authorization Not Required Specialty Diagnoses / Procedures Referred By Contchapis t Referred To Contact Diagnoses Rika-Danlos, hypermobile type Fibromyalgia Seropositive rheumatoid arthritis (HCC-CMS) Procedures XR RHEUMATOLOGY BILATERAL HANDS Preet Munoz MBBS [address] [address] [facility] Referral ID Status Reason Start Date Expiration Date Visits Requested Visits Authorized [id number] Authorization Not Required 3 1 1 Encounter Details Date Type Department Care Team (Latest Contact Info) Description 07/26/2023 13:45 EDT - 07/26/2023 14:04 EDT Hospital Encounter [facility] Xray [address] [place] [address] Pain in right foot; Rika-Danlos, hypermobile type; Fibromyalgia; Seropositive rheumatoid arthritis ([facility]) Discharge Disposition: Home or Self Care Social History Tobacco Use Types Packs/Day Years Used Date Smoking Tobacco: Never Smokeless Tobacco: Never Alcohol Use Standard Drinks/Week Comments Yes 1 (1 standard drink = 0.6 oz pur e alcohol) Interpersonal Safety Answer Date Record ed Physically Hurt Never 05/16/2020 Verbally Threaten Not on file 05/16/2020 Sex and Gender Information Value Date Recorded Sex Assigned at Not on file Gender Identity Genderqueer/Neutral 03/05/2023 1 4:56 EDT Sexual Orientation Something else 03/05/2023 14 :56 EDT documented as of this encounter Functional Status Functional Status Response Date of Assess ment Are you deaf or do you have serious difficulty h earing? No 02/02/2022 documented as of this encounter Medications at Time of Discharge Medication Sig Dispensed Refills Start Date End Date busPIRone (BUSPAR) 15 mg tablet Take 1 Tablet by mouth 2 times daily. 04/21/2023 cetirizine (ZYRTEC) 10 mg tablet 1 cap(s) orally once a day clindamycin (CLINDAGEL) 1 % gel 1 ayad applied topically 2 times a day colestipol (COLESTID) 1 gram tablet 1 tab(s) orally 1 times a day DULoxetine (CYMBALTA) 30 mg delayed release capsule TAKE ONE CAPSULE BY MOUTH EVERY DAY INCREASE TO TWO TIMES A DAY IN 2 WEEKS 08/27/2020 EPINEPHrine (EPIPEN) 0.3 mg/0.3 mL injection INJECT INTO THE MUSCLE DIRECTED NEEDED 11/18/2022 levonorgestrel (MIRENA) 20 mcg/24 hours (5 yrs) 52 mg IUD 1 ea by intrauteral administration once metFORMIN (GLUCOPHAGE-XR) 500 mg ER tablet Take 1 Tablet by mouth daily. 03/06/2023 OMNARIS 50 mcg spray,non-aerosol SPRAY 2 SPRAYS INTO BOTH NOSTRILS ONCE A DAY NEEDED 03/18/2023 ONETOUCH DELICA PLUS LANCET 33 gauge misc USE ONE LANCET TWO TIMES A DAY DIRECTED 03/07/2023 ONETOUCH VERIO FLEX METER USE DIRECTED ONCE DAILY TO CHECK BLOOD SUGAR 06/23/2022 ONETOUCH VERIO TEST STRIPS test strips USE ONE STRIP VIA METER TWO TIMES A DAY 03/06/2023 sucralfate (CARAFATE) 1 gram tablet Take 1 Tablet by mouth 4 times daily. TRULICITY 1.5 mg/0.5 mL subcutaneous pen once a week. 04/05/2023 documented as of this encounter Discharge Disposition Disposition Code Departure Means Destination Home or Self Care documented in this encounter Plan of Treatment Not on file documented as of this encounter Procedures Procedure Name Priority Date/Time Associated Diagnosis Comments XR FOOT RIGHT 3 OR MORE VIEWS Routine 07/26/2023 14:16 EDT Pain in right foot XR RHEUMATOLOGY BILATERAL HANDS 2 VIEWS EACH HAND Routine 07/26/2023 14:16 EDT Rika-Danlos, hypermobile type Fibromyalgia Seropositive rheumatoid arthritis (HCC-CMS) documented in this encounter Results * XR FOOT RIGHT 3 OR MORE VIEWS (07/26/2023 14:16 EDT) Anatomical Region Laterality Modality Lower Extremities Right Computed Radio graphy 07/26/2023 14:3 0 EDT Impressions 07/26/2023 14:30 EDT 1. No acute osseous injury detected. 2. Plantar spur. [id number] Narrative 07/26/2023 14:30 EDT XR FOOT RIGHT 3 OR MORE VIEWS ?? Signs and Symptoms/Comments: ??right foot pain;M79.671:Pain in right foot Comparison: None. FINDINGS: Right foot: 3 views. Bones: No acute fracture or malalignment. There is a plantar spur. Degenerative changes: No significant degenerative changes. Soft tissues: Unremarkable. Procedure Note Addi Wheeler MD - 07/26/2023 XR FOOT RIGHT 3 OR MORE VIEWS Signs and Symptoms/Comments: right foot pain;M79.671:Pain in right foot Comparison: None. FINDINGS: Right foot: 3 views. Bones: No acute fracture or malalignment. There is a plantar spur. Degenerative changes: No significant degenerative changes. Soft tissues: Unremarkable. IMPRESSION 1. No acute osseous injury detected. 2. Plantar spur. [id number] Nicky Brewster MD IMG DIAGNOSTIC IMAGI NG ORDERABLES * XR RHEUMATOLOGY BILATERAL HANDS (07/26/2023 14:16 EDT) Anatomical Region Laterality Modality Upper Extremities Computed Radio graphy 07/26/2023 14:2 9 EDT Impressions 07/26/2023 14:29 EDT 1. Bilateral hand very early peripheral polyarticular osteoarthrosis. No specific erosive/destructive bone changes are seen. [id number] Narrative 07/26/2023 14:29 EDT XR RHEUMATOLOGY BILATERAL HANDS ?? Signs and Symptoms/Comments: ??arthralgia ? bony erosions ? chondrocalcinosis ? inflammatory ? degenerative;Q79.62:Rika-Danlos, hypermobile type;M79.7:Fibromyalgia;M05.9:Seropositive rheumatoid arthritis (HCC-CMS) Comparison: None FINDINGS: Bilateral hands: 2 views. Bones: No acute fracture or malalignment. Degenerative changes: Very minimal scattered joint space narrowing is seen throughout the interphalangeal joints of the hands bilaterally. The MCP joints appear preserved. No focal destructive or erosive changes are seen within the fingers. There is early bilateral base of thumb joint space narrowing. No erosion at the ulnar styloid is seen.. Soft tissues: Unremarkable. Procedure Note Addi Wheeler MD - 07/26/2023 XR RHEUMATOLOGY BILATERAL HANDS Signs and Symptoms/Comments: arthralgia ? bony erosions ?chondrocalcinosis ? inflammatory ? degenerative;Q79.62:Rika-Danlos,hypermobile type;M79.7:Fibromyalgia;M05.9:Seropositive rheumatoidarthritis (HCC-CMS) Comparison: None FINDINGS: Bilateral hands: 2 views. Bones: No acute fracture or malalignment. Degenerative changes: Very minimal scattered joint space narrowing is seenthroughout the interphalangeal joints of the hands bilaterally. The MCPjoints appear preserved. No focal destructive or erosive changes are seenwithin the fingers. There is early bilateral base of thumb joint spacenarrowing. No erosion at the ulnar styloid is seen.. Soft tissues: Unremarkable. IMPRESSION 1. Bilateral hand very early peripheral polyarticular osteoarthrosis. Nospecific erosive/destructive bone changes are seen. [id number] Preet CARRILLO IMG DIAGNOSTIC IMAGI NG ORDERABLES documented in this encounter Visit Diagnoses Diagnosis Pain in right foot Pain in limb Rika-Danlos, hypermobile type Fibromyalgia Mylagia and myositis, unspecified Seropositive rheumatoid arthritis (HCC-CMS) Rheumatoid arthritis documented in this encounter Care Teams Metal Fabricating Inspector Relationship Specialty Start Date End Date Nicky Brewster MD [address] [place] [id number] PCP - General 12/24/16 documented as of this encounter
--- OUTSIDE RECORDS SUMMARY | 2024-05-28 10:35 | XMS_ITS | Encounter Summary ---
Author Organization [facility] Address [address] [place] [address] Care Team Providers Care Material Handling Warehouse Supervisor Name Role Phone Nicky Brewster MD Primary Care Provider [phone] Reason for Visit * Reason Comments Hand Injury Left middle finger s prain from 05/01/23. 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 Finger feels better, down to a 3/10 on pain scale. She is currently not working since last week. Seeing OT 1 time a week. Doing HEP 2-3 times a day. Not doing Praffin soaks. Tylenol 1000mg PRN up to BID. Entered by: Encounter Details Date Type Department Care Team (Latest Contact Info) Description 07/10/2023 13:45 EDT Office Visit [facility] Occupational Medicine [facility] [address] [place] [address] Douglas Lee MD MPH [address] [place] [address] Sprain of interphalangeal joint of left middle finger, subsequent encounter (Primary Dx) Social History Tobacco Use Types Packs/Day Years [...] :56 EDT documented as of this encounter Last Filed Vital Signs Vital Sign Reading Time Taken Comments Blood Pressure 154/86 07/10/2023 1358 EDT Pulse 88 07/10/2023 1358 EDT Temperature - - Respiratory Rate - - Oxygen Saturation - - Inhaled Oxygen Concentration - - Weight - - Height - - Body Mass Index - - documented in this encounter Functional Status Functional Status Response Date of Assess ment Are you deaf or do you have serious difficulty h earing? No 02/02/2022 documented as of this encounter Progress Notes * Douglas Lee MD MPH - 07/10/2023 1345 EDT [facility] Occupational Medicine Visit Note Subjective: Chief Complaint(s): Hand Injury (Left middle finger sprain from 05/01/23. 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 Finger feels better, down to a 3/10 on pain scale. She is currently not working since last week. Seeing OT 1 time a week. Doing HEP 2-3 times a day. Not doing Praffin soaks. Tylenol 1000mg PRN up to BID. Entered by: SCOTT) HPI: This is a 43-year-old woman who returns for follow-up. She has a history of injuring her third digit proximal interphalangeal joint of the left hand when she was putting on a glove on 05/01/2023. I amfollowing her up to reevaluate her based on her work restrictions. When I last saw her and recommended full duty but that she could ask for help if she needed help. She does return today informing methat she has now been placed on administrative leave without pay. She reports she has been out of work for about 1 week and then during this time the finger is feeling much better. She is happy with how her finger is doing and she feels that the buzzing sensation that she developed following the paraffin bath has improved as well. She was wondering whether she should continue her last 3 OT sessions I explained that I thought it was reasonable although I recommend not repeating the paraffin bath. She feels that the swelling is gone down in the hand as well and overall she is happy with how thehand is doing being out of work. Review of systems denies fever, chills, change in taste and smell Objective: Examination: Vitals: blood pressure is 154/86 (abnormal) and Cyn Renteria's pulse is 88. There is no height or weight on file to calculate BMI. 07/10/2023 13:58 Pain Score (from Vitals) Initial score 3 Final score 3 Location 12 On physical exam this is a pleasant 43-year-old woman appropriate interactive gets out of her chairwithout difficulty. She is overweight. It appears that the swelling at the PIP joint is down currently. Its not significantly tender to touch at this time on either the radial and ulnar aspects or the dorsal palmar aspects of the joint. Does not appear to have any synovitis. She appears to have full range of motion with flexion and extension at the PIP joint she is able to make a full composite fist. No clear gross sensory changes brisk capillary refill. Assessment & Plan: ICD-10-CM ICD-9-CM 1. Sprain of interphalangeal joint of left middle finger, subsequent encounter S63.633D V58.89 842.13 In assessment this is a 43-year-old woman who strained the PIP joint of the left third digit putting on a glove. She does appear to be making progress. She does have 3 additional OT sessions I explained that I thought these were reasonable however if when she sees Lucy in OT and Lucy does not feel they need continue then I would not require her to go at all of them. I will follow her up on er 11 as otherwise scheduled. I will release her to full duty. Plan 1. Medication no new medication at this time [id number] Voltaren gel continues to be reasonable 2. Physical therapy finished last few OT sessions. 3. Referrals no new referrals 4. Work capacity full duty 5. Follow-up I will follow her up in approximately 2 weeks time This note was dictated using dictation software and there may be inadvertent errors or omissions. Common errors include is for has and not for now No orders of the defined types were placed in this encounter. Patient Active Problem List Diagnosis ??? Vitamin D deficiency ??? Vitamin B12 deficiency ??? residential (current) use of non-steroidal anti-inflammatories (nsaid) ??? Irritable bowel syndrome with diarrhea ??? Inflammatory polyarthropathy (HCC-CMS) ??? Fibromyalgia ??? PCOS (polycystic ovarian syndrome) ??? Obesity ??? Sprain of left middle finger Past Medical History: Diagnosis Date ??? Carpal tunnel syndrome on both sides ??? Gestational diabetes ??? Migraine ??? Shingles 2009 Past Surgical History: Procedure Laterality Date ??? SECTION 2001, 2005 ??? CHOLECYSTECTOMY, LAPAROSCOPIC 2005 ??? TONSILLECTOMY Social History Occupational History ??? Not on file Tobacco Use ??? Smoking status: Never ??? Smokeless tobacco: Never Substance and Sexual Activity ??? Alcohol use: Yes Alcohol/week: 1.0 standard drink of alcohol Types: 1 Shots of liquor per week ??? Drug use: Yes Types: Marijuana ??? Sexual activity: Not on file Current Outpatient Medications: ??? Benzoyl Peroxide 5 % lotion, 1 ayad applied topically 2 times a day (Patient not taking: Reported on 06/04/2023), Disp: , Rfl: ??? busPIRone (BUSPAR) 15 mg tablet, Take 1 Tablet by mouth 2 times daily., Disp: , Rfl: ??? cetirizine (ZYRTEC) 10 mg tablet, 1 cap(s) orally once a day, Disp: , Rfl: ??? citalopram (CELEXA) 10 mg tablet, 1 tab(s) orally once a day (Patient not taking: No sig reported), Disp: , Rfl: ??? clindamycin (CLINDAGEL) 1 % gel, 1 ayad applied topically 2 times a day, Disp: , Rfl: ??? colestipol (COLESTID) 1 gram tablet, 1 tab(s) orally 1 times a day, Disp: , Rfl: ??? cyanocobalamin (VITAMIN B12) 1,000 mcg/mL injection, 1000 mcg intramuscularly once a month (Patient not taking: No sig reported), Disp: , Rfl: ??? diclofenac sodium (VOLTAREN) gel, Apply topically 4 times daily. (Patient not taking: Reported on 07/10/2023), Disp: , Rfl: ??? DULoxetine (CYMBALTA) 30 mg delayed release capsule, TAKE ONE CAPSULE BY MOUTH EVERY DAY INCREASE TO TWO TIMES A DAY IN 2 WEEKS, Disp: , Rfl: ??? EPINEPHrine (EPIPEN) 0.3 mg/0.3 mL injection, INJECT INTO THE MUSCLE DIRECTED NEEDED, Disp: , Rfl: ??? ergocalciferol (DRISDOL; VITAMIN D2) 1,250 mcg (50,000 unit) capsule, 1 cap(s) orally once a week, Disp: , Rfl: ??? hydroxychloroquine (PLAQUENIL) 200 mg tablet, 1 tab(s) orally once a day (Patient not taking: Reported on 07/10/2023), Disp: , Rfl: ??? levonorgestrel (MIRENA) 20 mcg/24 hours (5 yrs) 52 mg IUD, 1 ea by intrauteral administration once, Disp: , Rfl: ??? metFORMIN (GLUCOPHAGE-XR) 500 mg ER tablet, Take 1 Tablet by mouth daily., Disp: , Rfl: ??? OMNARIS 50 mcg spray,non-aerosol, SPRAY 2 SPRAYS INTO BOTH NOSTRILS ONCE A DAY NEEDED, Disp:, Rfl: ??? ONETOUCH DELICA PLUS LANCET 33 gauge misc, USE ONE LANCET TWO TIMES A DAY DIRECTED, Disp: , Rfl: ??? ONETOUCH VERIO FLEX METER, USE DIRECTED ONCE DAILY TO CHECK BLOOD SUGAR, Disp: , Rfl: ??? ONETOUCH VERIO TEST STRIPS test strips, USE ONE STRIP VIA METER TWO TIMES A DAY, Disp: , Rfl: ??? spironolactone (ALDACTONE) 100 mg tablet, 1 tab(s) orally once a day (Patient not taking: No sig reported), Disp: , Rfl: ??? traMADol (ULTRAM) 50 mg tablet, 1-2 tabs orally BID (Patient not taking: No sig reported), Disp: , Rfl: ??? triamcinolone (KENALOG) 0.1 % cream, , Disp: , Rfl: ??? TRULICITY 1.5 mg/0.5 mL subcutaneous pen, , Disp: , Rfl: No orders of the defined types were placed in this encounter. documented in this encounter Plan of Treatment Not on file documented as of this encounter Visit Diagnoses Diagnosis Sprain of interphalangeal joint of left middle finger, subsequent encounter- Primary documented in this encounter Care Teams Material Handling Warehouse Supervisor Relationship Specialty Start Date End Date Nicky Brewster MD [address] [place] [id number] PCP - General 12/24/16 documented as of this encounter
--- OUTSIDE RECORDS SUMMARY | 2024-05-28 10:35 | XMS_ITS | Encounter Summary ---
Author Organization [facility] Address [address] [place] [address] Care Team Providers Care Department Chair Name Role Phone Nicky Brewster MD Primary Care Provider [phone] Encounter Details Date Type Department Care Team (Late st Contact Info) Description 09/17/2023 Orders Only [facility] Pediatric Genetics - Main [place] [address] [place], [place] [address] Mitzy Wilkerson, MS [address] [place], [place] [id number] Benign joint hypermobility (Primary Dx) Social History Tobacco Use Types [...] No 02/02/2022 documented as of this encounter Plan of Treatment Scheduled Orders Name Type Priority Associated Diagnoses Orde r Schedule MISCELLANEOUS TEST, BUCCAL SWAB Lab Routine Benign joint hypermobility Expected: 09/24/2023 (Approximate), Expires: 09/17/2024 documented as of this encounter Visit Diagnoses Diagnosis Benign joint hypermobility- Primary Hypermobility syndrome documented in this encounter Care Teams Department Chair Relationship Specialty Start Date End Date Nicky Brewster MD [address] [place] [address] PCP - General 12/24/16 documented as of this encounter
--- OUTSIDE RECORDS SUMMARY | 2024-05-28 10:35 | XMS_ITS | Encounter Summary ---
Author Organization [facility] Address [address] [place] [address] Care Team Providers Care Optical Instrument Assembler Name Role Phone Nicky Brewster MD Primary Care Provider [phone] Reason for Referral * PT/OT/ST (Routine/Next Available) - Closed Specialty Diagnoses / Procedures [facility] Referred To Contact Diagnoses Rika-Danlos, hypermobile type Fibromyalgia Rheumatoid factor positive Chest pain, unspecified type Impingement of left shoulder Preet Munoz MBBS [address] [address] Referral ID Status Reason Start Date Expiration Date V isits Requested Visits Authorized [id number] Closed Specialty Services Required 11/01/2023 1 1 Question Answer Reason for Request: left impingement syndrome * Cardiology (Routine/Next Available) - Specialty Report Received Specialty Diagnoses / Procedures Referred By Marisol avila Referred To Contact Diagnoses Rika-Danlos, hypermobile type Fibromyalgia Rheumatoid factor positive Chest pain, unspecified type Impingement of left shoulder Procedures TRANSTHORACIC ECHO (TTE) COMPLETE MA ECHO TTHRC R-T 2D W/WOM-MODE COMPL SPEC&COLR D Preet Munoz MBBS [address] [place] [address] Referral ID Status Reason Start Date Expiration Date V isits Requested Visits Authorized [id number] Specialty Report Received 11/01/2023 1 1 Reason for Visit * Reason Comments Follow-up Encounter Details Date Type Department Care Team (Late st Contact Info) Description 11/01/2023 16:15 EST Office Visit [facility] Rheumatology [address] [place] [address] Preet Munoz MBBS [address] [phone] Rika-Danlos, hypermobile type (Primary Dx); Fibromyalgia; Rheumatoid factor positive; Chest pain, unspecified type; Impingement of left shoulder Social History Tobacco Use Types Packs/Day Years [...] (97.4 ??F) 11/01/2023 1607 EST Respiratory Rate - - Oxygen Saturation - - Inhaled Oxygen Concentration - - Weight 131.1 kg (289 lb) 11/01/2023 1607 EST Height 157.5 cm (5' 2) 11/01/2023 1607 EST Body Mass Index 52.86 11/01/2023 1607 EST documented in this encounter Functional Status Functional Status Response Date of Assess ment Are you deaf or do you have serious difficulty h earing? No 02/02/2022 Because of a physical, menta l, or emotional condition, does this person have difficulty doing errands alone such as visiting a doctor's office or shopping? Yes 11/01/2023 Cognitive Status Response Date of Assessm ent Because of a physical, menta l, or emotional condition, does this person have serious difficulty concentrating, remembering, or making decisions? Yes 11/01/2023 documented as of this encounter Progress Notes * Preet Munoz MBBS - 11/01/2023 1615 EST [facility] Rheumatology Clinic Follow-up Visit Date of Service: 11/01/2023 Patient ID Cyn Renteria Chief Compliant: Chief Complaint Patient presents with Follow-up Subjective / HPI: Cyn Renteria is an 43-year-old woman with a background of hepatic steatosis, lateral epichondylitis (right), pes planus, fibromyalgia, eczema, hirsuitism, hidradenitis, chronic sinusitis, vitamin Ddeficiency, B12 deficiency, PCOS, obesity, dry eye syndrome, IBS, GERD, anxiety, depression, autismspectum disorder, post concussion syndrome, thoracic outlet syndrome, anosmia, scoliosis and migraine who presented to [facility] rheumatology clinic for a follow up visit. Ms Renteria initially presented to [facility] rheumatology 07/2007 [Dr Grove] with polyarthralgia. Featuresof carpal tunnel syndrome without synovitis and normal ROM on examination. Labs remarkable for RF 61. LEYDA and CCP negative. No erosions on radiographs. Patient was diagnosed with a inflammatory arthritis, fibromyalgia and managed with hydroxychloroquine. Last seen 05/2019. Re-presented to [facility] rheumatology 07/2023. Presentation felt to be most consistent with hEDS and fibromyalgia. Did not feel presentation consistent with seropositive RA. Referred to genetics service for evaluation of vEDS. Interval history: - (08/2023) Genetics evaluation On assessment today: - Let go from position at [facility] this Fall - Attended podiatry last week. Insoles supplemented with heel lift. - Reports arthralgia involving neck, left shoulder and b/l feet - clenching chest pain at night - Awaiting genetics panel Review of Systems: A complete 10 point ROS was performed and pertinent positive and negative findings listed in HPI, otherwise negative. Medications and allergies reviewed Problem list reviewed Past medical history and Past surgical history reviewed Objective: Physical Exam BP 132/80 (BP Cuff Location: Left arm, BP Cuff Sizes: Adult, long) Pulse 88 Temp 36.3 ??C (97.4??F) Ht 157.5 cm (62) Wt (!) 131.1 kg (289 lb) BMI 52.86 kg/m?? General: No acute distress. Alert, fully oriented. Skin: No rashes or lesions Musculoskeletal: Hand: No synovitis, muscle wasting or deformity. Full range of movement. Right 2ndMCP and 5th DIP + Left 3rd PIP and DIP tenderness on palpation Elbow: No tenderness on palpation of medial or lateral epicondyle. Normal range of motion. No nodules. Shoulder: No synovitis or swelling. Normal range of motion in shoulders bilaterally. Left shoulder tenderness with abduction and Hawkin's positive. Knee: No asymmetry, muscle wasting, scars or deformities. No joint effusions or swellings. No tenderness on palpation of femoral epicondyle or tibial tuberosity. Foot: Normal range of movement. Left ankle and b/l MTP tenderness. Investigations: I have independently reviewed labs / imaging Labs: - Reviewed Imaging: - (07/26/23) X-ray hands: Bilateral hand very early peripheral polyarticular osteoarthrosis. No specific erosive/destructive bone changes are seen. Questionnaires: 11/01/2023 15:33 RAPID3 SCORES AND INTERPRETATION Functional Status 6 Pain Tolerance 8 Global Estimate 8 RAPID3 22 Interpretation High RAPID3 Score: As documented by Nurses/MAs during this visit and reviewed by me. Assessment & Plan: Left shoulder pain: Left shoulder tenderness with abduction and Hawkin's positive. Impingement syndrome and rotator cuff syndrome - Refer to PT - Acetaminophen 1g four times daily as needed and topical lidocaine four times daily hEDS: - Continue to physical therapy. [facility] in [place] and [facility] in [place] are well regarded local resources. Regular muscle strengthening specifically isometric training and low impact aerobic exercise are essential for management of symptoms. - Small frequent meals. Low FODMAP diet. - Though the pathophysiological connection to joint hypermobility is not well understood, multiple case-control studies show an association between joint hypermobility and specific extra-articular disorders including: anxiety disorders, orthostatic tachycardia, functional gastrointestinal disorders, and pelvic and bladder dysfunction. - There is unclear link between hypermobility patients and recurrent urticaria. Recommend [id number] daily in event of flare. - Request echocardiogram to look for any aortic root dilation or other potential cardiac abnormalities in EDS [externa] Evaluation of vascular EDS: Genetics evaluation 08/2023. - Defer to genetics Question of seropositive RA: Dx 2006. 25 year history of diffuse arthralgia, prolonged morning stiffness and subjective transient joint swelling. Prior hydroxychloroquine use (2006 - discontinued 2018). On reflection Ms. Renteria felt as though hydroxychloroquine was initially beneficial but this did not persist. On examination no synovitis and hypermobile ROM. Labs remarkable for RF 61. LEYDA and CCP negative. Hand radiographs identified early onset OA without bony erosions. Impression: No synovitis or deformity in absence of DMARD therapy for 4-years. - No DMARD therapy. Fibromyalgia: Poor sleep, arthralgias and fatigue. - Awaiting EMG. - Continue PT +/- pool therapy - Swimming, yoga and Rajeev-Chi with regular aerobic exercise - Acetaminophen 1g four times daily as needed and topical lidocaine four times daily. - Support use of duloxetine. - PCP could consider FDA-approved agents for fibromyalgia: milnacipran (replacing duloxetine) and pregabalin. - PCP could consider referral to sleep study or cyclobenzaprine to promote restful sleep. - PCP could consider referral for cognitive behavioral therapy Follow up with Dr. Munoz at PCP request LORENA Gilman, 11/01/2023 16:55 I spent a total of 30 minutes on the date of this encounter meeting with the patient and reviewing documentation/coordinating care as described in the above note. No procedures were performed at the time of the visit. After careful review of the patient???s history under my care and discussion with the patient, we decided that Cyn Renteria no longer requires routine follow up care in this office. If the patient has worsening of symptoms, please reach out directly to me, or in my absence, to one of my colleagues. My recommendations are: Treatment Plan: as above Medications: as above What to expect/monitor: atraumatic symmetrical small joint arthralgia and synovitis on examination When to refer back: concern for a inflammatory arthritis. documented in this encounter Plan of Treatment Scheduled Orders Name Type Priority Associated Diagnoses Orde r Schedule TRANSTHORACIC ECHO (TTE) COMPLETE Echocardiography Routine Rika-Danlos, hypermobile type Fibromyalgia Rheumatoid factor positive Chest pain, unspecified type Impingement of left shoulder Expected: 11/01/2023, Expires: 11/01/2025 Scheduled Referrals Name Type Priority Associated Diagnoses Order Schedule AMB CONS/FOLLOW UP PHYSICAL THERAPY - OUTSIDE OF NETWORK Outpatient Referral Routine/Next Available Rika-Danlos, hypermobile type Fibromyalgia Rheumatoid factor positive Chest pain, unspecified type Impingement of left shoulder Expected: 11/08/2023 (Approximate), Expires: 11/01/2024 documented as of this encounter Visit Diagnoses Diagnosis Rika-Danlos, hypermobile type- Primary Fibromyalgia Mylagia and myositis, unspecified Rheumatoid factor positive Other and unspecified nonspecific immunological findings Chest pain, unspecified type Impingement of left shoulder documented in this encounter Historical Medications * This list may reflect changes made after this encounter. Medication Sig Dispensed Refills Start Date End Date ergocalciferol (DRISDOL; VITAMIN D2) 1,250 mcg (50,000 unit) capsule Take 1 Capsule by mouth once a week. 08/16/2023 cyanocobalamin (VITAMIN B-12) 1,000 mcg tablet Take 1 Tablet by mouth daily. 10/28/2023 added in this encounter Care Teams Optical Instrument Assembler Relationship Specialty Start Date End Date Nicky Brewster MD [address] [place] [address] PCP - General 12/24/16 documented as of this encounter
--- OUTSIDE RECORDS SUMMARY | 2024-05-28 10:35 | XMS_ITS | Encounter Summary ---
Author Organization [facility] Address [address] [place] [address] Care Team Providers Care Upper Leather Sorter Name Role Phone Nicky Brewster MD Primary Care Provider [phone] Reason for Visit * Radiology Services (Routine/Next Available) - Authorization Not Required Specialty Diagnoses / Procedures [facility] Referred To Contact Diagnoses Pain in right foot Procedures XR FOOT RIGHT 3 OR MORE VIEWS XR FOOT LEFT 3 OR MORE VIEWS Nicky Brewster MD [address] [place] [address] [facility] Referral ID Status Reason Start Date Expiration Date Visits Requested Visits Authorized [id number] Authorization Not Required 07/17/2023 1 1 Encounter Details Date Type Department Care Team (Latest Contact Info) Description 07/26/2023 14:05 EDT - 07/26/2023 23:59 EDT Hospital Encounter [facility] - [facility] Xray [address] [place] [address] Discharge Disposition: Home or Self Care Social [...] 07/26/2023 14:16 EDT Pain in right foot documented in this encounter Results * XR FOOT RIGHT 3 OR MORE VIEWS (07/26/2023 14:16 EDT) Anatomical Region Laterality Modality Lower Extremities Right Computed Radio graphy 07/26/2023 14:3 0 EDT Impressions 07/26/2023 14:30 EDT 1. No acute osseous injury detected. 2. Plantar spur. [id number] Narrative 07/26/2023 14:30 EDT XR FOOT RIGHT [...] acute osseous injury detected. 2. Plantar spur. [id number] Nicky Brewster MD IMG DIAGNOSTIC IMAGI NG ORDERABLES documented in this encounter Visit Diagnoses Not on filedocumented in this encounter Care Teams Upper Leather Sorter Relationship Specialty Start Date End Date Nicky Brewster MD [address] [place] [address] PCP - General 12/24/16 documented as of this encounter
--- OUTSIDE RECORDS SUMMARY | 2024-05-28 10:35 | XMS_ITS | Encounter Summary ---
Author Organization [facility] Address [address] [place] [address] Care Team Providers Care Aerodynamics Professor Name Role Phone Nicky Brewster MD Primary Care Provider [phone] Reason for Visit * Reason Comments Hand Injury Sprain of Left Middl e Finger from 05/01/23. 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 Had her OT eval 06/26/23. Given an oval 8 brace and finger compression sleeve. States That she is still having pain to the Middle finger. Twisting, holding objects like a mug, anything that hooks and twists at the same time, causes discomfort. Does use Heat PRN; Does hold the finger with her opposite hand for a source of heat. Entered By: QUETA Encounter Details Date Type Department Care Team (Latest Contact Info) Description 06/27/2023 14:00 EDT Office Visit [facility] Occupational Medicine [facility] [address] [place] [address] Douglas Lee MD MPH [address] [place] [phone] Sprain of interphalangeal joint of left [...] Sign Reading Time Taken Comments Blood Pressure 134/20 06/27/2023 1400 EDT Pulse 96 06/27/2023 1400 EDT Temperature - - Respiratory Rate 12 06/27/2023 1400 EDT Oxygen Saturation - - Inhaled Oxygen Concentration - - Weight - - Height - - Body Mass Index - - documented in this encounter Functional Status Functional Status Response Date of Assess ment Are you deaf or do you have serious difficulty h earing? No 02/02/2022 documented as of this encounter Progress Notes * Douglas Lee MD MPH - 06/27/2023 1400 EDT [facility] Occupational Medicine Visit Note Subjective: Chief Complaint(s): Hand Injury (Sprain of Left Middle Finger from 05/01/23. 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 Had her OT eval 06/26/23. Given an oval 8 brace and finger compressionsleeve. States That she is still having pain to the Middle finger. Twisting, holding objects like amug, anything that hooks and twists at the same time, causes discomfort. Does use Heat PRN; Does hold the finger with her opposite hand for a source of heat. Entered By: AP) HPI: This is a 43-year-old woman who has a history injuring her PIP joint of the third digit of her lefthand. 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 She reports thatany lateral pressure on the PIP joint causes her pain some examples of these activities would be lifting a coffee cup for brushing down her close and anything is for stress is the joint and medial lateral direction increases her pain. She does report a 7 out of 10 pain level. I did refer her to OT she has now had her initial OT assessment. OT gave her a compression sleeve for the finger as well as a oval 8 splint. She finds the compression sleeve comfortable however at night it feels little tight. She has been wearing the compression sleeve at work. I explained that she could not wear it at work as it was an infection control risk. The compression sleeve is not clean able. I did explain that she could wear the oval 8 brace. This is a plastic brace that is clean able with an ox of your for an alcohol pad wipe. I did explain that after she washed her hands she should wipe down the spl int and perform putting it back on while she is doing phlebotomy care. She has another 2 OT sessions scheduled and is her understanding that she will start learning some home exercise stuff on follow-up. She does feel that she can continue to remain on full duty. Apparently she has some difficulty palpating veins on large individuals or individuals that are very edematous or very dehydrated. She was concerned whether she may have some sensory change in her right finger that is interfering with this. Review of systems denies fever, chills, change in taste and smell Objective: Examination: Vitals: blood pressure is 134/20 (abnormal) and Cyn Sanzes's pulse is 96. Cyn Renteria's respiration is 12. There is no height or weight on file to calculate BMI. 06/27/2023 14:00 Pain Score (from Vitals) Initial score 7 Final score 7 Location 12 On physical exam this is a pleasant 43-year-old woman. She is slightly tender over the PIP joint ofthe third digit of the left hand particularly on the radial and ulnar aspect. She is still able to make a full composite fist and appears to have full range of motion. She was able to have two-point discrimination at 5 mm on all digits. She was able to feel a 3.6 1 monofilament on all digits. When I went down to my 2.8 9 monofilament she did struggle to feel this. Assessment & Plan: ICD-10-CM ICD-9-CM 1. Sprain of interphalangeal joint of left middle finger, subsequent encounter S63.633D V58.89 842.13 In assessment this is a 43-year-old woman that strain the PIP joints of her left hand when putting on some gloves. This has been somewhat persistent. She has now seen OT. OT wants to see her 2 additional times. She continues to be symptomatic. She reports high levels of pain although for the most part has a very benign exam. She is slightly frustrated with her tabulating supervisor there is some stress at work. I do very much want to keep her medical issues separate from her employment performance issues. Plan 1. Medication I continue to feel that [id number] Voltaren gel is quite reasonable to rub on that finger for symptom relief. 2. Physical therapy I think that 2 additional sessions of OT is reasonable 3. Referrals no new referrals 4. Work capacity full duty 5. Follow-up I will follow her up in 4 weeks time 35 minutes was spent coordinating care for this patient. She did have questions about how ADA worksand about an ADA compensable condition. We did talk about peripheral neuropathy associated with diabetes. We did talk about how this could alter her sensation in her hand and make it harder to perform phlebotomy. We talked about strategies to improve her work performance. We talked about infection control in her workplace. I filled out an updated form 20 This note was dictated using dictation software and there may be inadvertent errors or omissions. Common errors include is for has and not for now No orders of the defined types were placed in this encounter. Patient Active Problem List Diagnosis ??? Vitamin D deficiency ??? Vitamin B12 deficiency ??? 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 Irritable bowel syndrome with diarrhea ??? Inflammatory polyarthropathy (HCC-CMS) (HCC) ??? Fibromyalgia ??? PCOS (polycystic ovarian syndrome) ??? Obesity ??? Sprain of left middle finger Past Medical History: Diagnosis Date ??? Carpal tunnel syndrome on both sides ??? Gestational diabetes ??? Migraine ??? Shingles 2009 Past Surgical History: Procedure Laterality Date ??? SECTION 2001, 2006 ??? CHOLECYSTECTOMY, LAPAROSCOPIC 2005 ??? TONSILLECTOMY Social [...] tablet, 1 tab(s) orally 1 times a day (Patient not taking: No sig reported), Disp: , Rfl: ??? cyanocobalamin (VITAMIN B12) 1,000 mcg/mL injection, 1000 mcg intramuscularly once a month (Patient not taking: No sig reported), Disp: , Rfl: ??? diclofenac sodium (VOLTAREN) gel, Apply topically 4 times daily. (Patient not taking: Reported on 06/27/2023), Disp: , Rfl: ??? DULoxetine (CYMBALTA) 30 [...] No sig reported), Disp: , Rfl: ??? levonorgestrel (MIRENA) 20 [...] Rfl: ??? triamcinolone (KENALOG) 0.1 % cream, 1 ayad applied topically 3 times a day (Patient not taking:Reported on 05/10/2023), Disp: , Rfl: ??? TRULICITY 1.5 mg/0.5 mL subcutaneous pen, , Disp: , Rfl: No orders of the defined types were placed in this encounter. documented in this encounter Plan of Treatment Not on file documented as of this encounter Visit Diagnoses Diagnosis Sprain of interphalangeal joint of left middle finger, subsequent encounter- Primary documented in this encounter Care Teams Aerodynamics Professor Relationship Specialty Start Date End Date Nicky Brewster MD [address] [place] [id number] PCP - General 12/24/16 documented as of this encounter
--- OUTSIDE RECORDS SUMMARY | 2024-05-28 10:35 | XMS_ITS | Encounter Summary ---
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 State that her Left Middle finger and pointer finger are sore, but finds work. doable. Discharged from OT on 07/18: Goals met. Doing her HEP 4 times per day. Does still using the figure 8 brace on the Left middle finger when driving or when at work. Not using any ice or heat. Feels that she has leveled off in her recovery. Entered By: QUETA Encounter Details Date Type Department Care Team (Latest Contact Info) Description 07/25/2023 14:45 EDT Office Visit [facility] Occupational Medicine [facility] [address] [place] [address] Douglas Lee MD MPH [address] [place] [address] Sprain of interphalangeal joint of [...] Sign Reading Time Taken Comments Blood Pressure 142/84 07/25/2023 1443 EDT Pulse 100 07/25/2023 144 EDT Temperature - - Respiratory Rate 12 07/25/2023 144 EDT Oxygen Saturation - - Inhaled Oxygen Concentration - - Weight - - Height - - Body Mass Index - - documented in this encounter Functional Status Functional Status Response Date of Assess ment Are you deaf or do you have serious difficulty h earing? No 02/02/2022 documented as of this encounter Progress Notes * Douglas Lee MD MPH - 07/25/2023 1445 EDT [facility] Occupational Medicine Visit Note Subjective: Chief Complaint(s): Hand Injury (Left Middle Finger Injury from 05/01/23. 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 State that her Left Middle finger and pointer finger are sore, but finds work. doable. Discharged from OT on 07/18: Goals met. Doing her HEP 4 times per day. Does still using the figure 8 brace on the Left middle finger when driving or when at work. Not using any ice or heat. Feels that she has leveled off in her recovery. Entered By: QUETA) HPI: This is a 43-year-old woman who returns for follow-up. 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 At that time she injured the PIP joint of the left middle finger and the DIP joint of the index finger. We sent her to OT. We temporarily placed her on some work restrictions. We have now returned her to full duty and she has beendischarged from OT. She continues to report some ache particularly in the PIP joint of the third digit. Since I previously saw her she has followed up with rheumatology. 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 Rheumatology is recommending bilateral hand x-rays to reassess her hand joints. She is alsofelt to have some seropositive RA which is why the hand radiographs again to be repeated and she isfound to have fibromyalgia. Rheumatology is considering restarting hydroxychloroquine. Overall Ms. Renteria does feel that she has plateaued in her recovery. She is frustrated that she isstill sore. She is worried that she may be sore now for the rest of her life because of this work injury. I did explain that I thought that there was a component of her rheumatologic conditions that are contributing to her current status as her original mechanism of injury was fairly benign. We discussed the stages of Worker's Compensation including filing an incident report, reasonable necessarymedical care, maximum medical improvement, and the impairment exam process. I explained that because we were not really doing anything with her medically and she has been discharged from OT and she is familiar with her home exercise program now that she is greater than 3 months out from her injury putting on her glove I thought she was at maximum medical improvement. She does not feel that she isreturned to her preinjury baseline. I did explain in individuals that do not return to their preinjury baseline it is not unreasonable to have an impairment exam. Review of systems denies fever, chills, change in taste and smell Objective: Examination: Vitals: blood pressure is 142/84 (abnormal) and Cyn Renteria's pulse is 100. Cyn Renteria's respirationis 12. There is no height or weight on file to calculate BMI. 07/25/2023 14:43 Pain Score (from Vitals) Initial score 3 Final score 3 Location 12 On physical exam today this is a 43-year-old woman. She does not seem to have any more swelling on the right PIPs and she does on the left PIP of the third digit. There appears to be no synovitis sheis slightly tender over the radial and ulnar side of the joint but overall the joint moves very well without any clear swelling. To my eyes she demonstrates full range of motion with flexion extension of the DIP joint of the second digit and the PIP joint of the third digit on the left hand. Good peripheral pulses. Appears to have quite a strong sugar drier. Assessment & Plan: ICD-10-CM ICD-9-CM 1. Sprain of interphalangeal joint of left middle finger, subsequent encounter S63.633D V58.89 842.13 In assessment this is a 43-year-old woman who strained her PIP joint of the third digit of her lefthand in the DIP joint joint of the second digit of the left hand. She participated in occupational therapy. We have returned her to full duty. She has been discharged now from occupational therapy. She understands her home exercise program and I continue to encourage her to pursue it. I explained that I thought she really plateaued in her recovery from her work injury. I do have a reasonable degree of medical certainty she is at maximal medical improvement. I have continued to encourage her to follow-up with her manager of compliance to manage her rheumatologic conditions. It may be that her rheumatologic condition is an ADA compensable disease. But I will leave that to [place] Dexter and her human resources department. Given that she feels that she continues to have pain from her work injury and feels that she is going to have lifelong impairment I think an independent impairment exam is not unreasonable. Plan 1. Medication no new medication 2. Physical therapy continue independent home exercise program 3. Referrals no new referrals should follow-up with manager of compliance as scheduled 4. Work capacity full duty no restrictions 5. Follow-up I will follow her up as needed based on a reasonable degree of medical certainty she is now maximal medical improvement 35 minutes was spent coordinating care for this patient. We discussed the stages of Worker's Compensation. We discussed maximum medical improvement. She agrees that she has plateaued in her recovery.We spoke about the impairment exam process. I encouraged her to speak to her workers compensation claims adjuster. I filled outan updated form 20 releasing her to full duty This note was dictated using dictation software and there may be inadvertent errors or omissions. Common errors include is for has and not for now No orders of the defined types were placed in this encounter. Patient Active Problem List Diagnosis ??? Vitamin D deficiency ??? Vitamin B12 deficiency ??? 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 Irritable bowel syndrome with diarrhea ??? Inflammatory polyarthropathy (HCC-CMS) ??? Fibromyalgia ??? PCOS (polycystic ovarian syndrome) ??? Obesity ??? Sprain of left middle finger ??? Scapulalgia ??? Ventral hernia ??? Eczema ??? Chronic pain of left knee ??? Anxiety ??? Type 2 diabetes mellitus (HCC-CMS) ??? Adrenal adenoma ??? Chronic sinusitis ??? Hirsutism ??? Autism spectrum disorder ??? Drug-induced anaphylaxis ??? Hidradenitis ??? Post concussion syndrome ??? Thoracic outlet syndrome ??? Anosmia ??? Lateral epicondylitis of right elbow ??? Intermittent dysphagia ??? Neuropathic pain ??? Pes planus ??? Scoliosis ??? GERD (gastroesophageal reflux disease) ??? Dry eye syndrome of both eyes ??? Migraine ??? Depression Past Medical History: Diagnosis Date ??? Carpal [...] Not on file Current Outpatient Medications: ??? busPIRone (BUSPAR) 15 mg tablet, Take 1 Tablet by mouth 2 times daily., Disp: , Rfl: ??? cetirizine (ZYRTEC) 10 mg tablet, 1 cap(s) orally once a day, Disp: , Rfl: ??? clindamycin (CLINDAGEL) 1 % gel, 1 ayad applied topically 2 times a day, Disp: , Rfl: ??? colestipol (COLESTID) 1 gram tablet, 1 tab(s) orally 1 times a day, Disp: , Rfl: ??? DULoxetine (CYMBALTA) 30 mg delayed release capsule, TAKE ONE CAPSULE BY MOUTH EVERY DAY INCREASE TO TWO TIMES A DAY IN 2 WEEKS, Disp: , Rfl: ??? EPINEPHrine (EPIPEN) 0.3 mg/0.3 mL injection, INJECT INTO THE MUSCLE DIRECTED NEEDED, Disp: , Rfl: ??? levonorgestrel (MIRENA) 20 [...] TIMES A DAY, Disp: , Rfl: ??? sucralfate (CARAFATE) 1 gram tablet, Take 1 Tablet by mouth 4 times daily., Disp: , Rfl: ??? TRULICITY 1.5 mg/0.5 mL subcutaneous pen, once a week., Disp: , Rfl: No orders of the defined types were placed in this encounter. documented in this encounter Plan of Treatment Not on file documented as of this encounter Visit Diagnoses Diagnosis Sprain of interphalangeal joint of left middle finger, subsequent encounter- Primary documented in this encounter Care Teams Facer Operator Relationship Specialty Start Date End Date Nicky Brewster MD [address] [place] [id number] PCP - General 12/24/16 documented as of this encounter
--- OUTSIDE RECORDS SUMMARY | 2024-05-28 10:35 | XMS_ITS | Encounter Summary ---
Author Organization [facility] Address [address] [place] [address] Care Team Providers Care Conveyor System Dispatcher Name Role Phone Nicky Brewster MD Primary Care Provider [phone] Reason for Visit * Reason Onset Date Comments Follow-up 09/12/2023 Encounter Details Date Type Department Care Team (Late st Contact Info) Description 09/12/2023 Telephone [facility] Pediatric Genetics - [facility] [address] [place], [place] [address] Mitzy Wilkerson, MS [address] [place], [place] [address] Follow-up Social History Tobacco Use Types Packs/Day Years [...] No 02/02/2022 documented as of this encounter Miscellaneous Notes * Telephone Encounter - Mitzy Wilkerson MS - 09/12/2023 0832 EST I left a message for Cyn that the prior authorization was denied for the EDS panel. I said we could do this panel with the patient pay option of $250 if she was interested. I left my number for her to call me back. documented in this encounter Plan of Treatment Not on file documented as of this encounter Visit Diagnoses Not on filedocumented in this encounter Care Teams Conveyor System Dispatcher Relationship Specialty Start Date End Date Nicky Brewster MD [address] [place] [id number] PCP - General 12/24/16 documented as of this encounter
--- OUTSIDE RECORDS SUMMARY | 2024-05-28 10:35 | XMS_ITS | Encounter Summary ---
Author Organization [facility] Address [address] [place] [address] Care Team Providers Care Line Assigner Name Role Phone Nicky Brewster MD Primary Care Provider [phone] Reason for Visit * Reason Onset Date Comments Results 12/10/2023 Encounter Details Date Type Department Care Team (Late st Contact Info) Description 12/10/2023 Telephone [facility] Rheumatology & Immunology - [facility] [address] [place] [address] Preet Munoz MBBS [address] [facility], [address] [place] [phone] Results Social History Tobacco Use Types Packs/Day Years [...] Yes 11/01/2023 documented as of this encounter Miscellaneous Notes * Telephone Encounter - Leanne García RN - 12/11/[address] Munoz' message to patient via . * Telephone Encounter - Preet Munoz MBBS - 12/10/2023 1627 EST Images from the original note were not included. Telephone call: (12/10/23) TTE: Impression: No features of concern on TTE documented in this encounter Plan of Treatment Not on file documented as of this encounter Visit Diagnoses Not on filedocumented in this encounter Care Teams Line Assigner Relationship Specialty Start Date End Date Nicky Brewster MD [address] [place] [id number] PCP - General 12/24/16 documented as of this encounter
--- OUTSIDE RECORDS SUMMARY | 2024-05-28 10:35 | XMS_ITS | Referral Summary ---
Author Organization [facility] Address [address] [place] [address] Care Team Providers Care Scaffold Erector Name Role Phone Nicky Brewster MD Primary Care Provider [phone] Allergies Active Allergy Reactions Criticality Noted Date Comments Allergenic Extracts 11/08/2016 [place] 06/04/2023 Apple 02/06/2021 Other reaction(s): Swelling/Edema Apricot [...] reaction(s): facial swelling, itching, depression, Facial pruritis, [place] High 02/06/2021 Other reaction(s): swelling lips and [...] macular rash Venlafaxine 04/21/2019 Other reaction(s): Unknown [place] High 02/06/2021 Other reaction(s): swelling tongue and [...] D deficiency 10/19/2019 Vitamin B12 deficiency 10/19/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 Yes 11/01/2023 Plan of Treatment Not on file Procedures Procedure Name Priority Date/Time Associated Diagnosis Comments HEMOGLOBIN A1C Routine 12/14/2022 16:40 EST Type 2 diabetes mellitus without complication, unspecified whether residential insulin use ([facility]) Biotin deficiency disease from Last 3 Months or Most Recently Relevant to Health Maintenance Results * (ABNORMAL) HEMOGLOBIN A1C (12/14/2022 16:40 EST) Hemoglobin A1c 7.1(H) <5.7 % 12/14/2022 20:[address] [facility] Comment: Glycemic Status References: Normal: ??<5.7% Pre-Diabetes: ??5.7% - 6.4% Diagnostic of Diabetes: ??> or = 6.5% (if confirmed) Est Avg Glucose 157 mg/dL 20:[address] [facility] Comment:The eAG represents t he A1c result expressed as average glucose in mg/dL. Blood VENOUS BLOOD / Unknown Venipuncture / Unknown 12/14/2022 16:40 EST 12/14/2022 16:41 EST Nicky Brewster MD CHEMISTRY & BLOOD GA S ORDERABLES Performing Organization Address City/State/[facility] Co de Phone Number [facility] [address] [place] [address] from Last 3 Months or Most Recently Relevant to Health Maintenance Guarantor Name Account Type Relation to Patient Date of Phone Billing Address Cyn Renteria Personal/Family Self 1980 [phone] x2005 (Work) [address] [place] [address] Cyn Renteria Personal/Family Self 1980 [phone] x2005 (Work) [address] [place] [address] [address] [place] [address] Cyn Renteria Personal/Family Self 1980 [phone] x2005 (Work) [address] [place] [address] Dexter, Cyn Personal/Family Self 1980 [phone] x2005 (Work) [address] [place] [address] Renteria, Cyn Personal/Family Self 1980 [phone] x2005 (Work) [address] [place] [address] Renteria, Cyn Personal/Family Self 1980 [phone] x2005 (Work) [address] [place] [address] Renteria, Cyn Personal/Family Self 1980 [phone] x2005 (Work) [address] [place] [address] Cyn Renteria Personal/Family Self 1980 [phone] x2005 (Work) [address] [place] [address] Care Teams Scaffold Erector Relationship Specialty Start Date End Date Nicky Brewster MD [address] [place] [id number] PCP - General 12/24/16
--- OUTSIDE RECORDS SUMMARY | 2024-05-28 10:35 | XMS_ITS | Encounter Summary ---
Author Organization [facility] Address [address] [place] [address] Care Team Providers Care Twisthand Name Role Phone Nicky Brewster MD Primary Care Provider [phone] Reason for Visit * Reason Comments Hand Injury Left Middle Finger i njury from 05/01/23. 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 States that her Finger Tips are Tingling: involving most of the Finger Tips of the Left Hand and on the Thumb of the Right Hand. Was unsure if it had to do with the parafin baths. States that her hand felt scalded. States that she still feels that way on the back of the Left Hand. States that she has been unable to palpate veins with her Left Hand. States feeling less buzzy today. Encounter Details Date Type Department Care Team (Latest Contact Info) Description 07/03/2023 10:15 EDT Office Visit [facility] Occupational Medicine [facility] [address] [place] [address] Douglas Lee MD MPH [address] [place] [address] Sprain of interphalangeal joint of [...] Sign Reading Time Taken Comments Blood Pressure 142/98 07/03/2023 1027 EDT Pulse 96 07/03/2023 1027 EDT Temperature - - Respiratory Rate 12 07/03/2023 1027 EDT Oxygen Saturation - - Inhaled Oxygen Concentration - - Weight - - Height - - Body Mass Index - - documented in this encounter Functional Status Functional Status Response Date of Assess ment Are you deaf or do you have serious difficulty h earing? No 02/02/2022 documented as of this encounter Progress Notes * Douglas Lee MD MPH - 07/03/2023 1015 EDT [facility] [place] Occupational Medicine Visit Note Subjective: Chief Complaint(s): Hand Injury (Left Middle Finger injury from 05/01/23. 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 States that her Finger Tips are Tingling: involving most of the Finger Tips of the Left Hand and on the Thumb of the Right Hand. Was unsure if it had to do with the parafin baths. States that her hand felt scalded. States that she still feels that way on the back of the Left Hand. States that she has been unable to palpate veins with her LeftHand. States feeling less buzzy today.) HPI: This is a 43-year-old woman who returns early. She was seen in OT yesterday reported some increasedpain following OT so I followed her up today. She was reporting that she has not been able to palpate the veins. 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 She is reporting that she is getting a buzzing sensation in her all of her fingertips and feels that her hand was slightly scalded by the paraffin bath that she had yesterday in PT. She informed her turf and grounds supervisor thatednae was not able to palpate veins and she was sent home from work yesterday. I did explain to Mrs. Renteria the concept of claim creep. I did explain her workplace injury was the strain of her third left PIP joint only and was related to putting her glove on. I explained that shoulder pain, her buzzing feeling, perceived sensory change in both hands was not related to her workers compensation injury. I explained my role was to take care of her workers compensation injury. She did ask whether some of this other discomfort could be related to her fibromyalgia and I explained that it might be. Any altered sensation in her hands that she is having I would not of attributedthis to her work injury. I cannot explain why her work injury would impact her ability to palpate avein. This is a confusing situation because she has been written up for performance issues related to herinability to palpate things and that she has been missing some of her sticks. She is feeling stressed and anxious about this. She does also have a history of fibromyalgia she does feel that her fibromyalgia may be becoming flared and that may be contributing to some of this buzzing sensation she isexperiencing. I did encourage her to follow-up with her primary care provider regarding any injuries or illnesses with the exception of the third digit proximal interphalangeal joints of the left hand which I will manage. The third digit PIP joint strain is the only part of her work comp claim. I explain that a PIP joint strain did not result in the need for work removal. I explained I could not remove her from work due to her stress and frustration or flare of her fibromyalgia. I did explain that I did not think a joint injury explain the numbness I encouraged her to follow-up with her primary. Review of systems denies fever, chills, change in taste and smell Objective: Examination: Vitals: blood pressure is 142/98 (abnormal) and Cyn Renteria's pulse is 96. Cyn Renteria's respiration is 12. There is no height or weight on file to calculate BMI. 07/03/2023 10:27 Pain Score (from Vitals) Initial score 9 Final score 9 Location 16 On physical exam this is a pleasant 43-year-old woman she does have a slightly flattened affect sheis overweight. She is tender to deep palpation of the PIP joint of the third digit she is also tender to light touch. Overall though she moves it very well she seems to have full range of motion withflexion and extension of the PIP DIP and MCP joints. Good peripheral pulses brisk capillary refill. Assessment & Plan: ICD-10-CM ICD-9-CM 1. Sprain of interphalangeal joint of left middle finger, subsequent encounter S63.633D V58.89 842.13 It assessment this is a 43-year-old woman who injured her left third proximal interphalangeal jointwhen putting a glove on her right hand. I do not think this injury explains a lot of her ongoing anxiety stress or inability to palpate veins. This has become a very layered situation involving performance issues, worker comp issues, and possibly some ADA issues. I did explain the importance of keeping these separate. I did encourage her for her ADA issues to follow-up with her primary care provider. Plan 1. Medication no new medication I continue to think [id number] Voltaren gel over the PIP joint is reasonable 2. Physical therapy she has 3 additional OT sessions scheduled to treat the 3rd digit PIP joint 3. Referrals no new referrals have encouraged her to follow-up with her primary care provider regarding her other medical conditions including her stress, anxiety, fibromyalgia, buzzing sensation, and other sensory changes. 4. Work capacity as it relates to her work injury I think she has a full duty work capacity. For her other conditions it may be that she requires some assistance with palpating a vein. I do want to be clear that assistance is not dictated by the strain to the third PIP joint. 5. Follow-up I will follow her up in 1 week's time 35 minutes was spent coordinating care in this case. We had a long talk about Worker's Comp. what is covered and what is not covered. I did answer her questions we did talk a little bit about her fibromyalgia stress and anxiety the difficulties in the workplace the performance issues have been identified and her ADA concerns. I filled out an updated form 20 This note was dictated using dictation software and there may be inadvertent errors or omissions. Common errors include is for has and not for now No orders of the defined types were placed in this encounter. Patient Active Problem List Diagnosis ??? Vitamin D deficiency ??? Vitamin B12 deficiency ??? 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 [...] sodium (VOLTAREN) gel, Apply topically 4 times daily., Disp: , Rfl: ??? DULoxetine (CYMBALTA) 30 [...] mg tablet, 1 tab(s) orally once a day, Disp: , Rfl: ??? levonorgestrel (MIRENA) 20 [...] Primary documented in this encounter Care Teams Twisthand Relationship Specialty Start Date End Date Nicky Brewster MD [address] [place] [address] PCP - General 12/24/16 documented as of this encounter
--- OUTSIDE RECORDS SUMMARY | 2024-05-28 10:35 | XMS_ITS | Encounter Summary ---
Author Organization [facility] Address [address] [place] [address] Care Team Providers Care Manager Acute Name Role Phone Nicky Brewster MD Primary Care Provider [phone] Reason for Visit * Reason Onset Date Comments Follow-up 09/17/2023 Encounter Details Date Type Department Care Team (Late st Contact Info) Description 09/17/2023 [facility]phone [facility] Pediatric Genetics - [facility] [address] [place], [place] [address] Mitzy Wilkerson, MS [address] [place], [place] [id number] Follow-up Social History Tobacco Use Types Packs/Day [...] Telephone Encounter - Mitzy Wilkerson MS - 09/17/2023 0917 EST I spoke to Cyn about the denial she said she has Medicaid I said if she has Medicaid then we do not need to do the prior Auth as [facility] will bill Medicaid directly. She was going to call [facility] and update her insurance information with her Medicaid number. I have also sent her an informed consent to review, sign, and return. Once this is returned and her Medicaid number is in epic I will placethe orders with [facility]. documented in this encounter Plan of Treatment Not on file documented as of this encounter Visit Diagnoses Not on filedocumented in this encounter Care Teams Manager Acute Relationship Specialty Start Date End Date Nicky Brewster MD [address] [place] [id number] PCP - General 12/24/16 documented as of this encounter
--- OUTSIDE RECORDS SUMMARY | 2024-05-28 10:35 | XMS_ITS | Encounter Summary ---
Author Organization [facility] Address [address] [place] [address] Care Team Providers Care Roll Wrapper Name Role Phone Nicky Brewster MD Primary Care Provider [phone] Reason for Referral * Prior Authorization (Routine/Next Available) - Closed Specialty Diagnoses / Procedures Referred By [facility] Referred To Contact Pediatric Genetics Diagnoses Scoliosis, unspecified scoliosis type, unspecified spinal region Migraine without status migrainosus, not intractable, unspecified migraine type Chronic pain of left knee Fibromyalgia Pes planus, unspecified laterality Inflammatory polyarthropathy ([facility]) Procedures [facility] PROCEDURE LEVEL 9 Lynne Kimbrough MD [address] [place] [address] [facility] Pedi Genetics [address] [place] [address] Referral ID Status Reason Start Date Expiration Date V isits Requested Visits Authorized [id number] Closed Specialty Services Required 08/27/2023 1 1 Question Answer Reason for Request: [facility] Rika-Danlos Syndrome Panel Comments The purpose of this request is to inform precertification staff that the requested service needs to be reviewed for prior-authorization. [facility] Rika-Danlos Syndrome Panel CPT 09270 Reason for Visit * Reason Comments New Patient Visit * Consult (Routine/Next Available) - Authorization Not Required Specialty Diagnoses / Procedures Referred By Marisol avila Referred To Contact Pediatric Genetics Diagnoses Rika-Danlos, hypermobile type Fibromyalgia Seropositive rheumatoid arthritis ([facility]) Preet Munoz MBBS [address] [facility], [facility] [address] [place] [address] [facility] Pedi Genetics [address] [place] [address] Referral ID Status Reason Start Date Expiration Date Visits Requested Visits Authorized [id number] Authorization Not Required Specialty Services Required 07/24/20 23 1 1 Encounter Details Date Type Department Care Team (Late st Contact Info) Description 08/27/2023 10:00 EST Telemedicine [facility] Clinical Genetics - [place] [address] [place], [place] [address] Mitzy Wilkerson, MS [address] [place], [place] [id number] Autism spectrum disorder (Primary Dx); Thoracic outlet syndrome; Neuropathic pain; Scoliosis, unspecified scoliosis type, unspecified spinal region; Migraine without status migrainosus, not intractable, unspecified migraine type; Chronic pain of left knee; Fibromyalgia; Pes planus, unspecified laterality; Inflammatory polyarthropathy ([facility]); Encounter for nonprocreative genetic counseling Social History Tobacco Use Types Packs/Day Years [...] as of this encounter Progress Notes * Mitzy Wilkerson MS - 08/27/2023 1000 EST [facility] CLINICAL GENETICS PROGRAM TELEMEDICINE VIDEO VISIT ENCOUNTER Encounter Date: 08/27/2023 Name: Cyn Renteria : 1980 PCP: Nicky Brewster Cyn Renteria is a 43 y.o. adult who is seen for a Genetics Telemedicine Video Visit Encounter at the request of LORENA Gilman for genetic counseling discussion of genetic testing for vascularEhlers-Danlos syndrome. TELEMEDICINE VIDEO VISIT DOCUMENTATION Today's visit was provided through telemedicine video conferencing: I have reviewed the appropriateness of using video technology with the patient with regards to today's visit. The location of the patient : Home Patient Visit Location State: [place] The location of the provider: Office Provider Visit Location State: [place] The following people and their roles were present for today's visit: None Appointment Provider: Mitzy Wilkerson MS The concept of ???Telemedicine?? has been described to the patient or guardian.? Patient/guardian has been informed of the anticipated benefits and possible risks.? Patient/guardian understands the information provided regarding telemedicine, has had the opportunity to ask questions about this information, and all questions have been answered to patient???s satisfaction. Patient/guardian consents for the use of telemedicine in his/her medical care and authorizes the transmission of any relevant medical information to providers and their staff involved in patient???s medical or mental health care. FAMILY HISTORY: A detailed three-generation pedigree was obtained as part of this visit. Cyn has a daughter who has a diagnosis of autism spectrum disorder and ADHD. Cyn has a son who also has a diagnosis of ADHD. Cyn has a sister with hypermobility. Cyn has another sister who has platelet issues, migraines, and diabetes. Cyn's mother had a stent placed and has high blood pressure. Cyn's father has diabetes and glaucoma. There is a family history of mental health issues. The rest of Cyn's family history is negative for defects, sudden , learning problems and early onset cancer. Cyn is of [place] and [facility] ethnicity. There is no known consanguinity in the family. The rest of the family history is unremarkable. MEDICAL HISTORY: Cyn has 25-year history of diffuse arthralgia and hypermobility: Cyn was seen at [facility] rheumatology department with Dr. Munoz. Cyn reports having hyperflexible joints and recurrent sprains or subjective dislocations. Cyn also has symptoms associated with hernias, skin hyperelasticity, tendon rupture, inadequate response to local anaesthetic, easy bruising, frequent headaches, dental crowding, urticaria, lightheadedness with standing up from sitting/lying position, irregular bowel habit and flat feet. Additionally been Cyn has a history of hepatic steatosis, lateral epichondylitis (right), pes planus, fibromyalgia, eczema, hirsuitism, hidradenitis, chronic sinusitis, vitamin D deficiency, B12 deficiency, PCOS, obesity, dry eye syndrome, IBS, GERD, anxiety, depression, autismspectrum disorder, post concussion syndrome, thoracic outlet syndrome, anosmia, scoliosis and migraines. Cyn experienced significant bleeding with both C-sections and the second was complicated by uterine rupture at the incision site of the incision for the first . Dr. 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 He discussed the genetic basis for hEDS is not known, though may bemultifactorial (caused by multiple genetic factors) in many cases. However as Cyn has a few minor criteria for vascular EDS he referred her for genetic counseling and discussion of genetic testingfor vascular EDS. Cyn has 1. Bruising in unusual sites such as cheeks or back 2. Hypermobility of small joints 3.Tendon and muscle rupture 4. Gingival recession and gingival fragility 5. Early onset varicose veins (under age 30 and nulliparous if female) SUMMARY OF DISCUSSION: Cyn Renteria is a 43 y.o. 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 The Rika-Danlos syndromes (EDS) are a group of hereditary disorders of connective tissue that arevaried in the ways they affect the body and in their genetic causes. The underlying concern is the abnormal structure or function of collagen and certain allied connective tissue proteins. EDS is generally characterized by joint hypermobility (joints that move further than normal range),joint instability (subluxation (partial separation of the articulating surfaces of a joint)) and dislocations (full separation of the surfaces of a joint), scoliosis, and other joint deformities, skin hyperextensibility (skin that can be stretched further than normal) and abnormal scarring, and other structural weakness such as hernias and organ prolapse through the pelvic floor. The Rika-Danlos syndromes are currently classified into thirteen subtypes. In all but the hypermobile subtype (hEDS) genetics variants have been identified as the cause for the disorder and are part of the diagnostic criteria. Each EDS subtype has a set of clinical criteria that help guide diagnosis; a patient???s physical signs and symptoms can be matched up to the major and minor criteria to identify the subtype that is the most complete fit. Vascular Rika-Danlos syndrome is characterized by thin, translucent skin; easy bruising; characteristic facial appearance; and fragile arteries, muscles and internal organs. Cyn was interested in having the [employer] Rika Danlos Panel and we have sent Cyn a genetic testing informed consent to review, sign, and return. We have placed a prior authorization with Cyn's insurance. If testing is a proved Cyn will be sent a buccal kit directly for this testing. We will contact Cyn once results are available. Lastly, we discussed that the laboratory may use their de-identified information for research or education purposes. The lab may also share this de-identified information with health care providers, scientists and healthcare databases. We also reviewed [place], the Genetic Information Nondiscrimination Act, which protects individuals from being discriminated based on their genetic testing information in regards to health insurance and employment. We also discussed other implications of genetic testing, including insurance implications. A law in [place] prohibits life insurers from requesting that an individual have genetic testing prior to applying for a life insurance policy. If one applies fo r a life insurance policy and genetic testing has already been performed, however, the life insureris entitled to know the test results. With regard to health insurance, a law in [place] prohibits health insurers from dropping an individual because of the results of a genetic test. However, the insurer may charge higher premiums PLAN: -EDS panel through [employer]. Prior authorization placed I spent a total of 60 minutes on the date of this encounter as indicated in the above progress note. The patient was seen under the supervision of Dr. Lynne Kimbrough, who reviewed the case and was available for further consultation or questions at the time of the visit. Mitzy Wilkerson MS, [facility] Genetic Counselor Lynne Kimbrough MD ([facility]) Medical Genetics 08/31/2023 16:13 Electronically signed by Lynne Kimbrough MD documented in this encounter Plan of Treatment Scheduled Referrals Name Type Priority Associated Diagnoses Orde r Schedule AMB CONS/FOLLOW UP GENETIC TESTING PRIOR AUTHORIZATION REQUEST Outpatient Referral Routine/Next Available Scoliosis, unspecified scoliosis type, unspecified spinal region Migraine without status migrainosus, not intractable, unspecified migraine type Chronic pain of left knee Fibromyalgia Pes planus, unspecified laterality Inflammatory polyarthropathy (HCC-CMS) Expected: 09/03/2023 (Approximate), Expires: 08/27/2024 documented as of this encounter Visit Diagnoses Diagnosis Autism spectrum disorder- Primary Autistic disorder, current or active state Thoracic outlet syndrome Brachial plexus lesions Neuropathic pain Neuralgia, neuritis, and radiculitis, unspecified Scoliosis, unspecified scoliosis type, unspecified spinal region Migraine without status migrainosus, not intractable, unspecified migraine type Chronic pain of left knee Pain in joint, lower leg Fibromyalgia Mylagia and myositis, unspecified Pes planus, unspecified laterality Inflammatory polyarthropathy (HCC-CMS) Unspecified inflammatory polyarthropathy Encounter for nonprocreative genetic counseling documented in this encounter Care Teams Roll Wrapper Relationship Specialty Start Date End Date Nicky Brewster MD [address] [place] [address] PCP - General 12/24/16 documented as of this encounter
--- OUTSIDE RECORDS SUMMARY | 2024-05-28 10:35 | XMS_ITS | Encounter Summary ---
Author Organization [facility] Address [address] [place] [address] Care Team Providers Care Quality Control Engineer Name Role Phone Nicky Brewster MD Primary Care Provider [phone] Reason for Visit * Reason Onset Date Comments Results 07/26/2023 Encounter Details Date Type Department Care Team (Late st Contact Info) Description 07/26/2023 Telephone [facility] Rheumatology & Immunology - [facility] [address] [place] [address] Preet Munoz MBBS [address] [facility] [place] [id number] Results Social History Tobacco Use Types Packs/Day [...] encounter Miscellaneous Notes * Telephone Encounter - Preet Munoz MBBS - 07/26/2023 1513 EDT Telephone call: S: Unable to reach directly by phone. Voicemail message left. I will send a message via [employer]. O: - (07/26/23) X-ray hands: Bilateral hand very early peripheral polyarticular osteoarthrosis. No specific erosive/destructive bone changes are seen. Impression & plan: Hand radiographs identified early onset OA without bony erosions. Continue as per 07/24/23 documented in this encounter Plan of Treatment Not on file documented as of this encounter Visit Diagnoses Not on filedocumented in this encounter Care Teams Quality Control Engineer Relationship Specialty Start Date End Date Nicky Brewster MD [address] [place] [address] PCP - General 12/24/16 documented as of this encounter
--- OUTSIDE RECORDS SUMMARY | 2024-05-28 10:35 | XMS_ITS | Encounter Summary ---
Author Organization [facility] Address [address] [place] [address] Care Team Providers Care Re Examiner Name Role Phone Nicky Brewster MD Primary Care Provider [phone] Encounter Details Date Type Department Care Team (Late st Contact Info) Description 07/05/2023 Telephone [facility] [place] [address] Ashli Plaza Social History Tobacco Use Types Packs/Day Years [...] encounter Miscellaneous Notes * Telephone Encounter - Ashli Plaza - 07/05/2023 1027 EDT 07/13/23- Dr Lee asked that we get an appointment for Cyn next week. I was able to get an appointment on 07/09/23 @9:45. I called twice on Sunday, 07/13 and the voice mail was full. I called on 07/04/23 and was able to leave a message. Asked that Cyn call to confirm the message was received and was coming to the appointment. After leaving that message, I received a call from sly Santizo. She wanted to see if anappointment was made. I gave her details of Sunday's appointment. She had been speaking with the employer. They were going to be texting information to Cyn and she was asking that they include the appointment details. On , 07/05/23, I called again and left a message for Cyn to call to confirm she received the message and was coming to the appointment. documented in this encounter Plan of Treatment Not on file documented as of this encounter Visit Diagnoses Not on filedocumented in this encounter Care Teams Re Examiner Relationship Specialty Start Date End Date Nicky Brewster MD [address] [place] [id number] PCP - General 12/24/16 documented as of this encounter
--- OUTSIDE RECORDS SUMMARY | 2024-05-28 10:35 | XMS_ITS | Encounter Summary ---
Author Organization [facility] Address [address] [place] [address] Care Team Providers Care Biomedical Engineering Aide Name Role Phone Nicky Brewster MD Primary Care Provider [phone] Reason for Referral * PT/OT/ST (Routine/Next Available) - Closed Specialty Diagnoses / Procedures [facility] Referred To Contact Rehab Therapies Diagnoses Rika-Danlos, hypermobile type Fibromyalgia Seropositive rheumatoid arthritis (HCC-CMS) Preet Munoz MBBS [address] [facility], [address] [place] [address] [facility] [address] [place] [id number] Referral ID Status Reason Start Date Expiration Date V isits Requested Visits Authorized [id number] Closed Specialty Services Required 07/24/2023 1 1 Question Answer Reason for Request: Hypermobility syndrome and fibromyalgia for consideration of land PT +/- pool therapy Comments This referral may serve as a referral to occupational therapy if appropriate. * Cardiology (Routine/Next Available) - Authorization Not Required Specialty Diagnoses / Procedures Referred By Contac t Referred To Contact Diagnoses Rika-Danlos, hypermobile type Fibromyalgia Seropositive rheumatoid arthritis (HCC-CMS) Rheumatoid factor positive Palpitations Procedures TRANSTHORACIC ECHO (TTE) COMPLETE FL ECHO HEART XTHORACIC,COMPLETE W DOPPLER Preet Munoz MBBS [address] [address] [facility] Referral ID Status Reason Start Date Expiration Date Visits Requested Visits Authorized [id number] Authorization Not Required 3 1 1 * Radiology Services (Routine/Next Available) - Authorization Not Required Specialty Diagnoses / Procedures Referred By Marisol avila Referred To Contact Diagnoses Rika-Danlos, hypermobile type Fibromyalgia Seropositive rheumatoid arthritis (HCC-CMS) Procedures XR RHEUMATOLOGY BILATERAL HANDS Preet Munoz MBBS [address] [place] [phone] [facility] Referral ID Status Reason Start Date Expiration Date Visits Requested Visits Authorized [id number] Authorization Not Required 3 1 1 * Consult (Routine/Next Available) - Authorization Not Required Specialty Diagnoses / Procedures Referred By Marisol avila Referred To Contact Pediatric Genetics Diagnoses Rika-Danlos, hypermobile type Fibromyalgia Seropositive rheumatoid arthritis (HCC-CMS) Preet Munoz MBBS [address] [place] [phone] [facility] [address] [place] [address] Referral ID Status Reason Start Date Expiration Date Visits Requested Visits Authorized [id number] Authorization Not Required Specialty Services Required 07/24/20 23 1 1 Question Answer Reason for Request: Likely hEDS but meet >3 criteria for vEDS (bruising, hypermobility tendon rupture, gingival recession, varicose veins and uterine rupture (s/p 1 ) Reason for Visit * Reason Comments New Patient Visit SOFTWARE DEPLOYMENT ENGINEER referred by Nicky Brewster SOFTWARE DEPLOYMENT ENGINEER for polyarthralgias. Former Dr. Grove patient last seen 2019: Pt would like to get screened for vascular type Dallin danlos * Referral (Routine) - Authorization Not Required Specialty Diagnoses / Procedures Referred By Contchapis t Referred To Contact Rheumatology Diagnoses Polyarthralgia Nicky Brewster MD [address] [place] [address] [facility] Rheumatology [address] [place] [id number] Referral ID Status Reason Start Date Expiration Date Visits Requested Visits Authorized [id number] Authorization Not Required 1 1 Encounter Details Date Type Department Care Team (Late st Contact Info) Description 07/24/2023 14:[address] [facility] Rheumatology [address] [place] [phone] Preet Munoz MBBS [address] [facility], [address] [place] [address] Rika-Danlos, hypermobile type (Primary Dx); Fibromyalgia; Seropositive rheumatoid arthritis (HCC-CMS); Rheumatoid factor positive; Palpitations; Chest pain, unspecified type Social History Tobacco Use Types Packs/Day Years [...] Sign Reading Time Taken Comments Blood Pressure 140/86 07/24/2023 1445 EDT Pulse 87 07/24/2023 1445 EDT Temperature 36.1 ??C (97 ??F) 07/24/2023 1445 EDT Respiratory Rate - - Oxygen Saturation - - Inhaled Oxygen Concentration - - Weight 129.7 kg (286 lb) 07/24/2023 1445 EDT Height - - Body Mass Index 52.31 06/20/2023 2229 EDT documented in this encounter Functional Status Functional Status Response Date of Assess ment Are you deaf or do you have serious difficulty h earing? No 02/02/2022 documented as of this encounter Patient Instructions * Patient Instructions* Preet Munoz MBBS - 07/24/2023 14:45 EDT - Counseled on joint protection avoid high impact activities and repetitive motion, and the utilityof physical therapy for strengthening and joint stability. - Recommend Physical therapy ([facility] in [place] and [facility] in [place] are well regarded local resource), regular muscle strengthening specifically isometric training and low impact aerobic exercise are essential for management of symptoms. - Acetaminophen 1g four times daily as needed and topical lidocaine four times daily - Small frequent meals. Low FODMAP diet. - Though the pathophysiological connection to joint hypermobility is not well understood, multiple case-control studies show an association between joint hypermobility and specific extra-articular disorders including: anxiety disorders, orthostatic tachycardia, functional gastrointestinal disorders, and pelvic and bladder dysfunction. - There is unclear link between hypermobility patients and recurrent urticaria. Recommend [id number] daily in event of flare. - Request echocardiogram to look for any aortic root dilation or other potential cardiac abnormalities in EDS. documented in this encounter Progress Notes * Preet Munoz MBBS - 07/24/2023 1445 EDT [facility] Rheumatology and Clinical Immunology Initial Patient Visit Chief Complaint: Chief Complaint Patient presents with ??? 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 Former Dr. Grove patient last seen 2019: Pt would like to get screened for vascular type Dallin danlos Patient ID: Cyn Renteria Date of Service: 07/24/2023 Patient age: 43 y.o. Patient gender: adult Subjective / HPI: Cyn Renteria is an 43-year-old woman with a background of inflammatory arthritis, hepatic steatosis, lateral epichondylitis (right), pes planus, fibromyalgia, eczema, hirsuitism, hidradenitis, chronic sinusitis, vitamin D deficiency, B12 deficiency, PCOS, obesity, dry eye syndrome, IBS, GERD, anxiety, depression, autism spectum disorder, post concussion syndrome, thoracic outlet syndrome, anosmia, scoliosis and migraine who presented to [facility] rheumatology clinic for a new patient assessment. Ms Renteria initially presented to [facility] rheumatology 07/2007 [Dr Grove] with polyarthralgia. Featuresof carpal tunnel syndrome without synovitis and normal ROM on examination. Labs remarkable for RF 61. LEYDA and CCP negative. No erosions on radiographs. Patient was diagnosed with a inflammatory arthritis, fibromyalgia and managed with hydroxychloroquine. Last seen 05/2019. On assessment today, Ms. Renteria endorses an approximately ~25 year of arthralgia principally localized to: - Fingers: B/l PIPs, b/l MCPs and b/l CMCs - Wrists: B/l - Elbows: B/l - Shoulders: Left - Neck: Yes - Low back: Yes - Hips: Left - Knees: Left - Ankles: B/l - Feet/ toes: B/l Arthralgia associated with morning stiffness lasting several hours. Subjective transient joint swelling. Arthralgia exacerbated by fine motor activity / physical therapy / paraffin wax baths / changes in barometric pressure and relieved by inactivity / topical heat / staying hydrated / limited aceaminophen use. Tramadol use associated with brain fog. Topical diclofenac gel associated with pins and needles. Lack of responsive to topical lidocaine cream. On reflection Ms. Renteria felt as thoughhydroxychloroquine was initially beneficial but this did not persist. Pain is worst at the beginning AND end of the day. Other aspects of history: Always in pain: Yes Light sensitivity: Yes Sound sensitivity: No Dizziness/POTS: Yes Mood: Fine when I'm not stressed Sleep: Poor sleep. Sleep-walks. Post exertional malaise: Yes Brain fog: No Irregular bowel habits: Yes Trauma: Yes Reports having had hyperflexible joints and recurrent sprains or subjective dislocations. Symptoms associated with hernias, skin hyperelasticity, tendon rupture, inadequate response to local anaesthetic, easy bruising, frequent headaches, dental crowding, urticaria, lightheadedness with standing upfrom sitting/lying position, irregular bowel habit and flat feet. Denies history of bowel rupture, lens dislocations or vascular aneurysms/dissection. Denies family h/o vascular aneurysms/dissection.S/p 2001 and 2nd in 2005 c/b by uterine rupture during the third trimester (prior and significant bleeding). Hidradenitis cyst excision c/b significant bleeding. Review of Systems: ROS (+): Photosensitive rash with hydroxychloroquine. Dry eyes. Tendon rupture 3rd finger April 2023. Intermittent chest pain. Review of Systems: A complete 10 point ROS was performed and pertinent positive and negative findings listed in HPI, otherwise negative. Family History: - Sister: ITP s/p splenectomy. 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 - Lives with and 2 children. - Significant psychosocial stressors: professional, financial - Nonsmoker. No ETOH use. THC gummies. Current Outpatient Medications Medication ??? busPIRone (BUSPAR) 15 mg tablet ??? cetirizine (ZYRTEC) 10 mg tablet ??? clindamycin (CLINDAGEL) 1 % gel ??? colestipol (COLESTID) 1 gram tablet ??? DULoxetine (CYMBALTA) 30 mg delayed release capsule ??? EPINEPHrine (EPIPEN) 0.3 mg/0.3 mL injection ??? levonorgestrel (MIRENA) 20 mcg/24 hours (5 yrs) 52 mg IUD ??? metFORMIN (GLUCOPHAGE-XR) 500 mg ER tablet ??? OMNARIS 50 mcg spray,non-aerosol ??? ONETOUCH DELICA PLUS LANCET 33 gauge misc ??? ONETOUCH VERIO FLEX METER ??? ONETOUCH VERIO TEST STRIPS test strips ??? sucralfate (CARAFATE) 1 gram tablet ??? TRULICITY 1.5 mg/0.5 mL subcutaneous pen No current facility-administered medications for this visit. Allergies Allergen Reactions ??? Apricot Other reaction(s): swelling of lips and throat ??? Bupropion Hcl Other reaction(s): visual disturbances Hallucination and unable to sleep, AOF ??? Cholestyramine Rash Other reaction(s): AOF, sores in mouth and throat ??? Covid-19 Vac, Bv (Pfizer)(Pf) Anaphylaxis ??? Fluoxetine ??? Ibuprofen Other reaction(s): 800mg - swelling, itching, AOF, high dose causes extreme swelling ??? Ivermectin Rash Other reaction(s): AOF, leukocytoclastic vasculitis ??? Loratadine ??? Montelukast Other reaction(s): facial swelling, itching, depression, Facial pruritis, ??? Woodruff Other reaction(s): swelling lips and throat ??? Sertraline ??? Sucrose Other reaction(s): sores in mouth and throat ??? Tree Nut Anaphylaxis ??? Beachwood Other reaction(s): swelling tongue and throat ??? Banana ??? Penicillamine Other reaction(s): hives,swelling ??? Allergenic Extracts ??? Rosalia ??? Apple Other reaction(s): Swelling/Edema ??? Dog Hair Standardized Allergenic Extract ??? Hazelnut ??? Latex Other reaction(s): itching ??? Methocarbamol Other reaction(s): Other (See Comments) Sexual Dysfunction ??? Penicillins Other reaction(s): Unknown ??? Pollen Extracts ??? Sumatriptan Succinate Palpitations ??? Venlafaxine Other reaction(s): Unknown ??? Clavulanic Acid Other reaction(s): U ??? Doxycycline Other reaction(s): I don't tolerate it, Sensitive, AOF ??? Sulfamethoxazole Other reaction(s): AOF, macular rash ??? Trimethoprim Other reaction(s): AOF, macular rash PMH PSH Past Medical History: Diagnosis Date ??? Carpal tunnel syndrome on both sides ??? Gestational diabetes ??? Migraine ??? Shingles 2009 Past Surgical History: Procedure Laterality Date ??? SECTION 2002, 2006 ??? CHOLECYSTECTOMY, LAPAROSCOPIC 2006 ??? TONSILLECTOMY Social History Family history Social History Tobacco Use ??? Smoking status: Never ??? Smokeless tobacco: Never Substance Use Topics ??? Alcohol use: Yes Alcohol/week: 1.0 standard drink of alcohol Types: 1 Shots of liquor per week Family History Problem Relation Age of Onset ??? Heart Disease Mother ??? Diabetes Father ??? Rheumatologic Disease Sister Objective: BP 140/86 (BP Cuff Location: Left arm, BP Patient Position: Sitting) Pulse 87 Temp 36.1 ??C (97??F) (Temporal) Wt (!) 129.7 kg (286 lb) BMI 52.31 kg/m?? Body mass index is 52.31 kg/m??. General: No acute distress. Alert, fully oriented. HEENT: Conjunctivae/corneas clear. Pupils equal, Sclerae anicteric. Mucus membranes moist; oropharynx clear. Neck symmetrical, trachea midline Lungs: Normal expansion. Clear to auscultation bilaterally with no crackles, crepitations or wheeze. Heart: Regular rate and rhythm, I + II present with no murmur Extremities: Extremities without cyanosis or edema. Flat feet and piezogenic papules Skin: No rashes or lesions Musculoskeletal: Hand: No synovitis, muscle wasting or deformity. Full range of movement. Elbow: No tenderness on palpation of medial or lateral epicondyle. Normal range of motion. No nodules. Shoulder: No synovitis or swelling. Normal range of motion in shoulders bilaterally. Hip: No tenderness on palpation over anterior superior iliac crest, greater trochanter. No pain with log roll. ROM normal. Knee: No asymmetry, muscle wasting, scars or deformities. No joint effusions or swellings. No tenderness on palpation of femoral epicondyle or tibial tuberosity. Foot: No tenderness on palpation of the ankles or MTP joint bilaterally. Normal range of movement. Beighton score: 6/9 (dorsiflexion of 5th MCP joint to 90, passive hyperextension of elbow, passive hyperextension of knees) Arm span / height: 170 /157.5cm Workup: I have personally reviewed and the imaging / lab results Labs: - Reviewed Imaging: No results found. Assessment & Plan: ~25-year history of diffuse arthralgia and hypermobility: Reports having had hyperflexible joints and recurrent sprains or subjective dislocations. Symptoms associated with hernias, skin hyperelasticity, tendon rupture, inadequate response to local anaesthetic, easy bruising, frequent headaches, dental crowding, urticaria, lightheadedness with standing up from sitting/lying position, irregular bowel habit and flat feet. Denies history of bowel rupture, lens dislocations or vascular aneurysms/dissection. Denies family h/o vascular aneurysms/dissection. S/p 2001 and 2nd in 2005 c/b by uterine rupture during the third trimester (prior and significant bleeding). Hidradenitis cyst excision c/b significant bleeding. Criterion 1: - Beighton Score of >5/9 . Patient meets criteria (greater than or equal to 5) Criterion 2 (Two of A, B or C). Patient meets criterion A and C - A (must have 5 or more): Soft skin, piezogenic papules of the heel, dental crowding, arm [id number] >1.05 and and recurrent hernia. No arachnodactyly, mitral valve prolapse, aortic root dilation, pelvic floor / rectal or uterine prolapse or skin hyperextensibility (>4cm). - C: Pain in two more joints daily for at least 3-months or chronic pain for at least 3-months or recurrent dislocations. Criteria 3. Absence of skin fragility. Exclusion of alternative diagnosis including autoimmune conditions, neuromuscular disorders or marfans syndrome Impression: Rika-Danlos hypermobility subtype (hEDS). Patient's arthralgias due to periarticular strain to ligaments and tendons around joints from theirEhlers-Danlos Hypermobility subtype (hEDS). The genetic basis for hEDS is not known, though may be multifactorial (caused by multiple genetic factors) in many cases. There are many rare inherited conditions within the broader connective tissue disorder family that also feature joint hypermobility and skin manifestations, including a few that include aneurysms as a prominent feature. We will work this up. - Counseled on joint protection avoid high impact activities and repetitive motion, and the utilityof physical therapy for strengthening and joint stability. - Refer to physical therapy. [facility] in [place] and [facility] [place] are well regarded local resources. Regular muscle strengthening specifically isometric training and low impact aerobic exercise are essential for management of symptoms. - Acetaminophen 1g four times daily as needed and topical lidocaine four times daily - Small frequent meals. Low FODMAP diet. - Though the pathophysiological connection to joint hypermobility is not well understood, multiple case-control studies show an association between joint hypermobility and specific extra-articular disorders including: anxiety disorders, orthostatic tachycardia, functional gastrointestinal disorders, and pelvic and bladder dysfunction. - There is unclear link between hypermobility patients and recurrent urticaria. Recommend [id number] daily in event of flare. - Request echocardiogram to look for any aortic root dilation or other potential cardiac abnormalities in EDS. Evaluation of vascular EDS: Refer to medical genetics as meets 3 or more Minor Criteria (no Major Major Criteria - Family history of vEDS with documented causative variant in COL3A1 - Arterial rupture at a young age - Spontaneous sigmoid colon perforation in the absence of known diverticular disease or other bowelpathology - Uterine rupture during the third trimester in the absence of previous C- section and/or severe peripartum perineum tears - Carotid-cavernous sinus fistula (CCSF) formation in the absence of trauma Minor Criteria (+) Bruising in unusual sites such as cheeks or back - Thin translucent skin with increased venous visibility - Spontaneous pneumothorax - Acrogeria (premature skin aging) - Talipes equinovarus (club foot since ) - Congenital hip dislocation (+) Hypermobility of small joints (+) Tendon and muscle rupture - Keratoconus (cornea bulges into cone shape) (+) Gingival recession and gingival fragility (+) Early onset varicose veins (under age 30 and nulliparous if female) Question of seropositive RA: Dx 2006. 25 year history of diffuse arthralgia, prolonged morning stiffness and subjective transient joint swelling. Prior hydroxychloroquine use (2006 - discontinued 2018). On reflection Ms. Renteria felt as though hydroxychloroquine was initially beneficial but this did not persist. On examination no synovitis and hypermobile ROM. Labs remarkable for RF 61. LEYDA and CCP negative. No erosions on radiographs. Impression: No synovitis or deformity in absence of DMARD therapy for 4-years. - Repeat hand radiographs. Fibromyalgia: Poor sleep, arthralgias and fatigue. - Educated on fibromyalgia and central pain sensitization vs. Somatic and inflammatory causes of pain. - Referral physical therapy +/- pool therapy - Discuss additional management described below pending workup. - Swimming, yoga and Rajeev-Chi with regular [...] could consider referral for cognitive behavioral therapy CC' PCP LORENA Gilman, 07/24/2023 20:00 I spent a total of 60 minutes on the date of this encounter meeting with the patient and reviewing documentation/coordinating care as described in the above note. No procedures were performed at the time of the visit. documented in this encounter Plan of Treatment Scheduled Orders Name Type Priority Associated Diagnoses Orde r Schedule TRANSTHORACIC ECHO (TTE) COMPLETE Echocardiography Routine Rika-Danlos, hypermobile type Fibromyalgia Seropositive rheumatoid arthritis (HCC-CMS) Rheumatoid factor positive Palpitations Expected: 07/24/2023, Expires: 07/24/2025 Scheduled Referrals Name Type Priority Associated Diagnoses Order Schedule AMB CONS/FOLLOW UP GENETICS Outpatient Referral Routine/Next Available Rika-Danlos, hypermobile type Fibromyalgia Seropositive rheumatoid arthritis (HCC-CMS) Expected: 07/31/2023 (Approximate), Expires: 07/24/2024 AMB CONS/FOLLOW UP PHYSICAL THERAPY - [facility] Outpatient Referral Routine/Next Available Rika-Danlos, hypermobile type Fibromyalgia Seropositive rheumatoid arthritis (HCC-CMS) Expected: 07/31/2023 (Approximate), Expires: 07/24/2024 documented as of this encounter Results * XR RHEUMATOLOGY BILATERAL HANDS (07/26/2023 14:16 EDT) Anatomical Region Laterality Modality Upper Extremities Computed Radio graphy 07/26/2023 14:2 9 EDT Impressions 07/26/2023 14:29 EDT 1. Bilateral hand very early peripheral polyarticular osteoarthrosis. No specific erosive/destructive bone changes are seen. [id number] Narrative 07/26/2023 14:29 EDT XR RHEUMATOLOGY BILATERAL [...] osteoarthrosis. Nospecific erosive/destructive bone changes are seen. [id number] Preet CARRILLO IMG DIAGNOSTIC IMAGI NG ORDERABLES documented in this encounter Visit Diagnoses Diagnosis Rika-Danlos, hypermobile type- Primary Fibromyalgia Mylagia and myositis, unspecified Seropositive rheumatoid arthritis (HCC-CMS) Rheumatoid arthritis Rheumatoid factor positive Other and unspecified nonspecific immunological findings Palpitations Chest pain, unspecified type Pain in right foot Pain in limb Rika-Danlos, hypermobile type Fibromyalgia Mylagia and myositis, unspecified Seropositive rheumatoid arthritis (HCC-CMS) Rheumatoid arthritis documented in this encounter Care Teams Biomedical Engineering Aide Relationship Specialty Start Date End Date Nicky Brewster MD [address] [place] [address] PCP - General 12/24/16 documented as of this encounter
--- OUTSIDE RECORDS SUMMARY | 2024-05-28 10:35 | XMS_ITS | Encounter Summary ---
Author Organization [facility] Address [address] [place] [address] Care Team Providers Care Clerk Stenographer Name Role Phone Nicky Brewster MD Primary Care Provider [phone] Encounter Details Date Type Department Care Team (Late st Contact Info) Description 07/11/2023 Abstract [facility] Rheumatology [address] [place] [id number] Leanne García RN Social History Tobacco Use Types Packs/Day Years [...] as of this encounter Plan of Treatment Not on file documented as of this encounter Visit Diagnoses Not on filedocumented in this encounter Discontinued Medications Medication Sig Discontinue Reason Start Date End Da te Benzoyl Peroxide 5 % lotion 1 ayad applied topically 2 times a day Therapy completed 07/11/2023 citalopram (CELEXA) 10 mg tablet 1 tab(s) orally once a day Therapy completed 07/11/2023 cyanocobalamin (VITAMIN B12) 1,000 mcg/mL injection 1000 mcg intramuscularly once a month Therapy completed 07/11/2023 diclofenac sodium (VOLTAREN) gel Apply topically 4 times daily. Therapy completed 07/11/2023 ergocalciferol (DRISDOL; VITAMIN D2) 1,250 mcg (50,000 unit) capsule 1 cap(s) orally once a week Therapy completed 02/18/2010 07/11/2023 hydroxychloroquine (PLAQUENIL) 200 mg tablet 1 tab(s) orally once a day Therapy completed 03/07/2010 07/11/2023 triamcinolone (KENALOG) 0.1 % cream Therapy completed 10/17/2018 07/11/2023 spironolactone (ALDACTONE) 100 mg tablet 1 tab(s) orally once a day Therapy completed 07/11/2023 traMADol (ULTRAM) 50 mg tablet 1-2 tabs orally BID Therapy completed 07/11/2023 documented as of this encounter Historical Medications * This list may reflect changes made after this encounter. Medication Sig Dispensed Refills Start Date End Date sucralfate (CARAFATE) 1 gram tablet Take 1 Tablet by mouth 4 times daily. added in this encounter Care Teams Clerk Stenographer Relationship Specialty Start Date End Date Nicky Brewster MD [address] [place] [id number] PCP - General 12/24/16 documented as of this encounter
--- OUTSIDE RECORDS SUMMARY | 2024-05-28 10:35 | XMS_ITS | Encounter Summary ---
Author Organization [facility] Address [address] [place] [address] Care Team Providers Care Demand Planning Analyst Name Role Phone Nicky Brewster MD Primary Care Provider [phone] Reason for Visit * Reason Onset Date Comments Results 11/08/2023 Encounter Details Date Type Department Care Team (Late st Contact Info) Description 11/08/2023 Telephone [facility] Pediatric Genetics - [facility] [address] [place], [place] [id number] Mitzy Wilkerson, MS [address] [place], [place] [id number] Results Social History Tobacco Use Types Packs/Day [...] Telephone Encounter - Mitzy Wilkerson MS - 11/08/2023 1324 EST I spoke to Cyn and let know that her Rika-Danlos panel was negative documented in this encounter Plan of Treatment Not on file documented as of this encounter Visit Diagnoses Not on filedocumented in this encounter Care Teams Demand Planning Analyst Relationship Specialty Start Date End Date Nicky Brewster MD [address] [place] [address] PCP - General 12/24/16 documented as of this encounter
--- OUTSIDE RECORDS SUMMARY | 2024-05-28 10:36 | XMS_ITS | Encounter Summary ---
Author Organization [facility] Address [address] [place] [address] Care Team Providers Care Counseling Services Manager Name Role Phone Nicky Brewster MD Primary Care Provider [phone] Encounter Details Date Type Department Care Team (Late st Contact Info) Description 06/17/2021 Results Only [facility] - [facility] Lab - Main [address] [address] Unknown, Provider, Social History Tobacco Use Types Packs/Day Years Used Date Smoking Tobacco: Never Assessed Interpersonal Safety Answer Date Record ed Physically Hurt Never 05/16/2020 Verbally Threaten Not on file 05/16/2020 Sex and Gender Information Value Date Recorded Sex Assigned at Not on file Gender Identity Genderqueer/Neutral 03/05/2023 1 4:56 EDT Sexual Orientation Something else 03/05/2023 14 :56 EDT documented as of this encounter Plan of Treatment Not on file documented as of this encounter Procedures Procedure Name Priority Date/Time Associated Diagnosis Comments COVID-19 TESTING Routine 06/17/2021 14:3 0 EDT documented in this encounter Results * COVID-19 TESTING (06/17/2021 14:30 EDT) COVID-19 rt-PCR Result Not Detected 06/17/2021 15:38 EDT [facility] Comment: This assay is designed to detect the RNA of SARS-CoV-2 using nucleic acid amplification. ??A Not Detected result does not preclude the possibility of SARS-CoV-2 infection since the adequacy of sample collection and/or low viral burden may result in the presence of viral nucleic acids below the analytical sensitivity of this test method. ??Test results should not be used as the sole basis for treatment or other management decisions and must be used with other clinical, epidemiological and laboratory data in making the diagnosis. This test has not been FDA cleared or approved. ??This test has been authorized by FDA under an EUA for use by authorized laboratories. ??This test has been authorized only for detection of nucleic acid from 2019-nCoV, not for any other viruses or pathogens. ??This test is only authorized for the duration of the declaration that circumstances exist justifying the authorization of emergency use of in vitro diagnostic tests for detection and / or diagnosis of 2019-nCoV under section 564(b) (1) of Act, 21 U.S.C 360bbb-3(b)(1) unless the authorization is terminated or revoked sooner. Performed on the [employer] GeneXpert Instrument at [facility] [id number] 06/17/2021 14:3 0 EDT 06/17/2021 14:30 EDT Provider Unknown MICROBIOLOGY - GENER AL ORDERABLES Performing Organization Address City/State/[facility] Co de Phone Number [facility] [address] [place] [address] documented in this encounter Visit Diagnoses Not on filedocumented in this encounter Care Teams Counseling Services Manager Relationship Specialty Start Date End Date Nicky Brewster MD [address] [place] [address] PCP - General 12/24/16 documented as of this encounter
--- OUTSIDE RECORDS SUMMARY | 2024-05-28 10:36 | XMS_ITS | Encounter Summary ---
Author Organization [facility] Address [address] [place] [address] Care Team Providers Care Center Sales And Service Associate Name Role Phone Nicky Brewster MD Primary Care Provider [phone] Encounter Details Date Type Department Care Team (Late st Contact Info) Description 09/01/2022 Lab Requisition [facility] Lab - Main [place] [address] [place] [address] Agustina Meneses MD [address] [place] [address], [address] [place] [address] Social History Tobacco Use Types Packs/Day Years [...] Procedure Name Priority Date/Time Associated Diagnosis Comments ZZCOVID-19 CV (TESTING ONLY) Today 09/01/2022 21:23 EST COVID-19 TESTING Today 09/01/2022 21:2 3 EST documented in this encounter Results * COVID-19 [facility] (TESTING ONLY) (09/01/2022 21:23 EST) Swab 09/01/2022 21:2 3 EST 09/01/2022 21:28 EST Agustina Meneses MD MICROBIOLOGY - GENER AL ORDERABLES Performing Organization Address City/[facility]/ZIP Co de Phone Number [facility] [address] [place] [address] * COVID-19 TESTING (09/01/2022 21:23 EST) COVID-19 rt-PCR Result Negative Negative 09/02/2022 0:00 EST [facility] Performing Lab Cepheid GeneXpert [facility] Lab 09/02/2022 0:00 EST [facility] Swab 09/01/2022 21:2 3 EST 09/01/2022 21:28 EST Agustina Meneses MD MICROBIOLOGY - GENER AL ORDERABLES Performing Organization Address City/[facility]/ZIP Co de Phone Number [facility] [address] [place] [address] documented in this encounter Visit Diagnoses Not on filedocumented in this encounter Additional Health Concerns Infection Onset Date Last Indicated Resolved Time R/O COVID-19 06/20/2023 06/20/2023 06/21/2023 0:18 EDT documented as of this encounter Care Teams Center Sales And Service Associate Relationship Specialty Start Date End Date Nicky Brewster MD [address] [place] [address] PCP - General 12/24/16 documented as of this encounter
--- OUTSIDE RECORDS SUMMARY | 2024-05-28 10:36 | XMS_ITS | Encounter Summary ---
Author Organization [facility] Address [address] [place] [address] Care Team Providers Care Insurance Service Representative Name Role Phone Nicky Brewster MD Primary Care Provider [phone] Reason for Visit * Reason Comments Hand Injury Left Middle and Inde x Finger Injury from 05/01/23. 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 On DOI, heard a crack to her Left Hand and felt pain to her Index and Middle finger when pulling a glove onto her Right Hand with her Left Hand. Right Hand dominant. Seen in ED where full ROM and Strength was documented. [place] that an X Ray was not indicated. Given a brace. Wore it for one day. Made herself some ring splints instead. Patient did not return for the remainder of her shift. Encounter Details Date Type Department Care Team (Latest Contact Info) Description 05/10/2023 9:00 EDT Office Visit [facility] Occupational Medicine [facility] [address] [place] [address] Douglas Lee MD MPH [address] [place] [phone] Strain of extensor digitorum tendon of finger (Primary Dx) Social History Tobacco Use Types [...] Orientation Something else 03/05/2023 14 :56 EDT COVID-19 Exposure Response Date Recorded In the last 10 days, have yo u been in contact with someone who was confirmed or suspected to have Coronavirus/COVID-19? No / Unsure 05/01/2023 20:14 EDT documented as of this encounter Last Filed Vital Signs Vital Sign Reading Time Taken Comments Blood Pressure 146/82 05/10/2023 0931 EDT Pulse 100 05/10/2023 0931 EDT Temperature - - Respiratory Rate 12 05/10/2023 09 EDT Oxygen Saturation - - Inhaled Oxygen Concentration - - Weight 130.8 kg (288 lb 4.8 oz) 05/10/2023 0931 EDT Height 157.5 cm (5' 2) 05/10/2023 0931 EDT Body Mass Index 52.73 05/10/2023 0931 EDT documented in this encounter Functional Status Functional Status Response Date of Assess ment Are you deaf or do you have serious difficulty h earing? No 02/02/2022 documented as of this encounter Progress Notes * Douglas Lee MD MPH - 05/10/2023 0900 EDT [facility] Occupational Medicine Visit Note Subjective: Chief Complaint(s): Hand Injury (Left Middle and Index Finger Injury from 05/01/23. 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 On DOI, heard a crack to her Left Hand and felt pain to her Index and Middle finger when pulling a glove onto her Right Hand with her Left Hand. Right Hand dominant. Seen in ED where full ROM and Strength was documented. [place] that an X Ray was not indicated. Given a brace. Wore it for one day. Made herself some ring splints instead. Patient did not return for the remainderof her shift. 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 She reports when she first gets to work she spends 2 hours in the outpatient blood draw area. 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 After the outpatient blood draw area closes she can do schedule inpatient ER ICU phlebotomy. She reports she has been doing this job for 8 years and she enjoys it. 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 She has to enter data into the computer and she has to hold specimens in her left hand. 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 Her injury occurred on 05/01/2023. She was putting a glove on her right hand using her left hand. She experienced a clicking sensation and pain in the PIP joint on the posterior aspect of the third digit of her left hand. At the same time she also feels that she hyperextended the DIP joint of the second digit of her left hand. She reports that she had acute pain but she had to handle her samples and get them into the vacuum tube. She reports she continued to work but her fingers were continuing to bother her as her shift continued. She completed an incident report and proceeded to the ER. She reports there was a long wait in the ER. She was evaluated and it was felt that because she hadgood range of motion and no significant swelling. X-rays were not indicated. She was placed in a splint and sent home. She wore the splints that afternoon and then removed the splints to sleep that night. She was given an aluminum foam splint that had wrapped around bars to hold it in place. She removed the splint before she went to bed and she tossed and turned that night. The next day was a scheduled day off. She made her own ring splint with some wire. It continued to be painful and sore says that on May 07 she called her primary to be seen for follow-up. Her primary recommended she not wear gloves but gloves are required to do her job. Currently she is reporting pain between the dorsal aspect of the third digit between the PIP and the MCP joints. She also reports some discomfort at the tip of her index finger. She is able to use itbut it does feel stiff and sore. She has been guarding the hand and not using it as much. Allergies she has a long list of multiple allergies. 22 allergies in total. Past medical history is significant for inflammatory polyarthritis which she has previously been treated with Plaquenil. She is not currently taking Plaquenil and has not followed up with her practical nursing teacher anytime recently. She has a history of diabetes and has a history of bilateral carpal tunnelwith carpal tunnel release she also has a history of trigger fingers. She has a history of fibromyalgia and polycystic ovarian disease Surgical history significant for gallbladder removal, , tonsillectomy, Social history she is a non-smoker. She occasionally drinks alcohol. She does periodically will have a THC gummy. She lives with her spouse and 2 kids. She has a cat. Review of systems she does report a history of headaches. She does wear glasses for vision. Denies hearing changes denies difficulty with swallowing solids or liquids. Denies chest pain, chest tightness, shortness of breath and cough. She does report some abdominal pain related to an umbilical hernia. She denies nausea and vomiting but does report some diarrhea and constipation. Denies black or bloody bowel movements. She does have some increase in her weight. She denies neck pain but does report left shoulder pain. Denies elbow issues. Does report decreased range of motion in her wrists. Shereports pain over the right hand due to compensating for the left. 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 She reports some left hip pain and some left knee pain. Objective: Examination: Vitals: height is 157.5 cm (62) and weight is 130.8 kg (288 lb 4.8 oz) (abnormal). Cyn Renteria's blood pressure is 146/82 (abnormal) and Cyn Renteria's pulse is 100. Cyn Renteria's respiration is 12. Body mass index is 52.73 kg/m??. Pain Score (from Vitals) 05/10/2023 Initial score - Final score 5 Location HAND On physical exam this is a pleasant overweight 42-year-old woman. She was interactive and appropriate. She was able to rise from her chair without difficulty and walked up and down the gallo without difficulty. On direct observation of her bilateral hands I do not observe any swelling bruising or dis coloration of the second or third digits. She was slightly tender over the radial styloid nontender over the ulnar styloid. She was nontenderin the distal radial ulnar joint. Grinding this joint was not associated with pain. She did not have pain in the scapholunate space was nontender over the scaphoid no tenderness in the anatomic snuffbox of the base of the thumb or the thumb DIP joint. She was nontender over the fifth metacarpal bone. She was nontender at the fifth metacarpal joint PIP or DIP joints. She was nontender over the fourth MCP, PIP and DIP joints. She was nontender over the third MCP joints over the dorsum of the finger may be some slight tenderness on the posterior aspect of the PIP joint but no bogginess swelling warmth or redness appreciated. No synovitis appreciated. Nontender at the third DIP joint. Nontenderover the second digit MCP joint or PIP joint slightly tender over the distal finger. Demonstrated really quite good range of motion at the MCP joint bilaterally. She demonstrated good range of motionwith flexion at the DIP and PIP joints while keeping the MCP joints straight. She had some stiffness at end range she had some discomfort. She was able to make a full composite fist. She was able to fully extend the fingers as well. She had brisk capillary refill in her fingernails with no evidenceof pitting or trophic changes. No clear sensory deficit to light touch Assessment & Plan: ICD-10-CM ICD-9-CM 1. Strain of extensor digitorum tendon of finger S56.419A 842.19 In assessment this is a 42-year-old woman who injured her left middle finger on 05/01/2023. Her mechanism of injury was catching her finger of her left while putting a glove on her right hand. As she put the glove on she experienced a pop in the third PIP joint on the left hand. She has made improvement since that time. It does seem that sleep position contributes to her morning pain and morning stiffness. She does experience morning stiffness of greater than 60 minutes. I encouraged her to wear her aluminum foam splint at night just to protect the finger while sleeping. I encouraged her to work on her range of motion at the PIP and DIP and MCP joints of both hands Idid demonstrate some motions I wanted her to do. I also encouraged her to work on extension of all of her fingers as well. We discussed occupational therapy and I will wait till follow-up to determine whether occupational therapy is indicated. I do have a reasonable degree of certainty that she cansafely put on and wear a glove. She demonstrated for me the ability to put on gloves. She used a slightly different technique where she pinched the thumb and the second digit to pull the glove on. She was not hooking the glove with her third digit as she has done previously. I do think she can workwearing gloves I would recommend a 10-minute rest every 15 minutes when she is involved in repetitive hand activities. I will follow her up closely and I will see her again in 1 week's time. Plan 1. Medication no new medication we discussed otc Voltaren gel. She reports of previously taking oral NSAIDs causes some dependent edema. I explained that I thought the gel would be a reasonable alternative. She will consider this. I also dispensed to hot gel packs that could be used to heat the hand. I gave her one of her work and 1 for home and encouraged her to use it if she was experiencing some ache. 2. Physical therapy had considered occupational therapy although we will hold off until I see her again to see how she does before placing referral to Occupational Therapy. 3. Referrals no new referrals at this time 4. Work capacity may keep her on a 10 pound left at 10-minute rest every 50 minutes when performingrepetitive hand movements. 5. Follow-up I will follow her up in 1 week's time 60 minutes was spent with this patient. I did review her ER note. I did review notes from her practical nursing teacher prior to this event. We spoke about home exercise program he spoke about joint mobilization we spoke about OT. We spoke about return to work. I filled out an updated form 20 This note was dictated using dictation software and there may be inadvertent errors or omissions. Common errors include is for has and not for now No orders of the defined types were placed in this encounter. Patient Active Problem List Diagnosis ??? Vitamin D deficiency ??? Vitamin B12 deficiency ??? jail (current) use of non-steroidal anti-inflammatories (nsaid) ??? Irritable bowel syndrome with diarrhea ??? Inflammatory polyarthropathy (HCC-CMS) (HCC) ??? Fibromyalgia ??? PCOS (polycystic ovarian syndrome) ??? Obesity Past Medical History: Diagnosis Date ??? Carpal [...] 2 times a day (Patient not taking: No sig reported), Disp: , Rfl: ??? busPIRone (BUSPAR) 15 [...] No sig reported), Disp: , Rfl: ??? DULoxetine (CYMBALTA) 30 [...] as of this encounter Visit Diagnoses Diagnosis Strain of extensor digitorum tendon of finger- Primary documented in this encounter Historical Medications * This list may reflect changes made after this encounter. Medication Sig Dispensed Refills Start Date End Date ONETOUCH VERIO FLEX METER USE DIRECTED ONCE DAILY TO CHECK BLOOD SUGAR 06/23/2022 ONETOUCH VERIO TEST STRIPS test strips USE ONE STRIP VIA METER TWO TIMES A DAY 03/06/2023 ONETOUCH DELICA PLUS LANCET 33 gauge misc USE ONE LANCET TWO TIMES A DAY DIRECTED 03/07/2023 metFORMIN (GLUCOPHAGE-XR) 500 mg ER tablet Take 1 Tablet by mouth daily. 03/06/2023 OMNARIS 50 mcg spray,non-aerosol SPRAY 2 SPRAYS INTO BOTH NOSTRILS ONCE A DAY NEEDED 03/18/2023 EPINEPHrine (EPIPEN) 0.3 mg/0.3 mL injection INJECT INTO THE MUSCLE DIRECTED NEEDED 11/18/2022 TRULICITY 1.5 mg/0.5 mL subcutaneous pen once a week. 04/05/2023 busPIRone (BUSPAR) 15 mg tablet Take 1 Tablet by mouth 2 times daily. 04/21/2023 added in this encounter Care Teams Insurance Service Representative Relationship Specialty Start Date End Date Nicky Brewster MD [address] [place] [address] PCP - General 12/24/16 documented as of this encounter
--- OUTSIDE RECORDS SUMMARY | 2024-05-28 10:36 | XMS_ITS | Encounter Summary ---
Author Organization [facility] Address [address] [place] [address] Care Team Providers Care Bottom Brusher Name Role Phone Nicky Brewster MD Primary Care Provider [phone] Encounter Details Date Type Department Care Team (Late st Contact Info) Description 02/20/2022 Lab Requisition [facility] Lab - Main [place] [address] [place] [address] Health, [facility] Employee Encounter for screening for COVID-19 Social History Tobacco Use Types Packs/Day Years [...] suspected to have Coronavirus/COVID-19? No / Unsure 02/02/2022 16:42 EDT documented as of this encounter Functional Status Functional Status Response Date of Assess ment Are you deaf or do you have serious difficulty h earing? No 02/02/2022 documented as of this encounter Plan of Treatment Not on file documented as of this encounter Procedures Procedure Name Priority Date/Time Associated Diagnosis Comments ZZCOVID-19 [facility] (TESTING ONLY) Today 02/20/2022 16:38 EDT Encounter for screening for COVID-19 COVID-19 TESTING Today 02/20/2022 16:3 8 EDT Encounter for screening for COVID-19 documented in this encounter Results * COVID-19 [facility] (TESTING ONLY) (02/20/2022 16:38 EDT) Swab 02/20/2022 16:3 8 EDT 02/20/2022 16:38 EDT [facility] MICROBIOLOGY - GENERAL ORDERABLES Performing Organization Address [facility] Co de Phone Number [facility] [address] [place] [address] * COVID-19 TESTING (02/20/2022 16:38 EDT) COVID-19 rt-PCR Result Negative Negative 02/20/2022 18:03 EDT [facility] Performing Lab Cepheid GeneXpert [facility] Lab 02/20/2022 18:03 EDT [facility] Swab 02/20/2022 16:3 8 EDT 02/20/2022 16:38 EDT [facility] MICROBIOLOGY - GENERAL ORDERABLES Performing Organization Address City/[facility] Co de Phone Number [facility] [address] [place] [address] documented in this encounter Visit Diagnoses Diagnosis Encounter for screening for COVID-19 documented in this encounter Additional Health Concerns Infection Onset Date Last Indicated Resolved Time R/O COVID-19 06/20/2023 06/20/2023 06/21/2023 0:18 EDT documented as of this encounter Care Teams Bottom Brusher Relationship Specialty Start Date End Date Nicky Brewster MD [address] [place] [address] PCP - General 12/24/16 documented as of this encounter
--- OUTSIDE RECORDS SUMMARY | 2024-05-28 10:36 | XMS_ITS | Encounter Summary ---
Author Organization [facility] Address [address] [place] [address] Care Team Providers Care Manager Target Name Role Phone Nicky Brewster MD Primary Care Provider [phone] Encounter Details Date Type Department Care Team (Late st Contact Info) Description 07/27/[address] [facility] Lab - Main [address] [address] Unknown, Provider, Social History Tobacco Use Types [...] Date/Time Associated Diagnosis Comments COVID-19 TESTING Routine 07/27/2021 18:5 9 EDT documented in this encounter Results * COVID-19 TESTING (07/27/2021 18:59 EDT) Performing Lab [facility] () 07/29/2021 4:57 EDT [facility] Comment: Please indicate the Triage Tiertier 2 Test performed or referred by The [address] [address] COVID-19 rt-PCR Result Not Detected Negative 07/29/2021 4:57 EDT [facility] Comment: This test has not been FDA cleared or approved. This test has been authorized by FDA under an EUA for use by authorized laboratories. This test has been authorized only for detection of nucleic acid from 2019-nCoV, not for any other viruses or pathogens. This test is only authorized for the duration of the declaration that circumstances exist justifying the authorization of emergency use of in vitro diagnostic tests for detection and/or diagnosis of 2019-nCoV under section 564(b)(1) of Act, 21 U.S.C ? 360bbb-3(b) (1), unless the authorization is terminated or revoked sooner. Negative results do not preclude 2019-nCoV infection and should not be used as the sole basis for treatment or other patient management decisions. Negative results must be combined with clinical observations, patient history, and epidemiological information. Performed on the [employer] instrument 07/27/2021 18:5 9 EDT 07/27/2021 18:59 EDT Provider Unknown MICROBIOLOGY - GENER AL ORDERABLES Performing Organization Address City/State/[facility] Co de Phone Number [facility] [address] [place] [address] documented in this encounter Visit Diagnoses Not on filedocumented in this encounter Care Teams Manager Target Relationship Specialty Start Date End Date Nicky Brewster MD [address] [place] [address] PCP - General 12/24/16 documented as of this encounter
--- OUTSIDE RECORDS SUMMARY | 2024-05-28 10:36 | XMS_ITS | Encounter Summary ---
Author Organization [facility] Address [address] [place] [address] Care Team Providers Care Final Cigar And Box Examiner Name Role Phone Nicky Brewster MD Primary Care Provider [phone] Encounter Details Date Type Department Care Team (Latest Contact Info) Description 02/17/2022 Transcribe Orders [facility] Lab - Main [address] [address] Nicky Brewster MD [address] [place] [address] [phone] Diabetes mellitus (HCC) (HCC-CMS) (Primary Dx) Social History Tobacco Use Types [...] as of this encounter Visit Diagnoses Diagnosis Diabetes mellitus ([facility])- Primary Type II or unspecified type diabetes mellitus without mention of complication, not stated as uncontrolled documented in this encounter Care Teams Final Cigar And Box Examiner Relationship Specialty Start Date End Date Nicky Brewster MD [address] [place] [address] PCP - General 12/24/16 documented as of this encounter
--- OUTSIDE RECORDS SUMMARY | 2024-05-28 10:36 | XMS_ITS | Encounter Summary ---
Author Organization [facility] Address [address] [place] [address] Care Team Providers Care Crocheter Name Role Phone Nicky Brewster MD Primary Care Provider [phone] Encounter Details Date Type Department Care Team (Late st Contact Info) Description 11/28/2021 Lab Requisition [facility] Pathology & Laboratory Medicine - [facility] [address] [place] [address] Outr Resulting Lab, Provider Social History Tobacco Use Types Packs/Day Years [...] you have serious difficulty h earing? No 09/13/2021 documented as of this encounter Plan of Treatment Not on file documented as of this encounter Procedures Procedure Name Priority Date/Time Associated Diagnosis Comments ZZCOVID-19 TEST [facility] PCR Today 11/28/2021 12:19 EST COVID-19 TESTING Routine 11/28/2021 12:1 9 EST documented in this encounter Results * COVID-19 TEST [facility] PCR (11/28/2021 12:19 EST) Swab 11/28/2021 12:1 9 EST 11/29/2021 15:54 EST Provider Outr Resulting Lab MICROBIOLOGY - GENERAL ORDERABLES Performing Organization Address [facility] Co de Phone Number [facility] [address] [place] [address] * COVID-19 TESTING (11/28/2021 12:19 EST) COVID-19 rt-PCR Result Negative Negative 11/30/2021 12:42 EST [facility] Comment: This test has not been FDA [...] under section 564(b)(1) of Act, 21 U.S.C ?? 360bbb-3(b) (1), unless the authorization is terminated or revoked sooner. Negative results do not preclude 2019-nCoV infection and should not be used as the sole basis for treatment or other patient management decisions. Negative results must be combined with clinical observations, patient history, and epidemiological information. Testing was performed using the marylou SARS-CoV-2 assay ([employer] on the Marylou 6800 System Performing Lab [facility] [address] [facility] 11/30/2021 12:42 EST [facility] Swab 11/28/2021 12:1 9 EST 11/29/2021 15:54 EST Provider Outr Resulting Lab MICROBIOLOGY - GENERAL ORDERABLES Performing Organization Address [facility]/ZIP Co de Phone Number [facility] [address] [place] [address] documented in this encounter Visit Diagnoses Not on filedocumented in this encounter Additional Health Concerns Infection Onset Date Last Indicated Resolved Time R/O COVID-19 01/03/2022 01/03/2022 01/08/2022 22:1 5 EDT R/O COVID-19 06/20/2023 06/20/2023 06/21/2023 0:18 EDT documented as of this encounter Care Teams Crocheter Relationship Specialty Start Date End Date Nicky Brewster MD [address] [place] [address] PCP - General 12/24/16 documented as of this encounter
--- OUTSIDE RECORDS SUMMARY | 2024-05-28 10:36 | XMS_ITS | Encounter Summary ---
Author Organization [facility] Address [address] [place] [address] Care Team Providers Care Welder/Fitter Name Role Phone Nicky Brewster MD Primary Care Provider [phone] Reason for Visit * Reason Onset Date Comments Other 05/25/2021 questions Encounter Details Date Type Department Care Team (Late st Contact Info) Description 05/25/2021 Telephone [facility] [address] [place], [place] [address] [facility] [address] [place], [place] [address] Other (questions) Social History Tobacco Use Types Packs/Day Years Used Date Smoking Tobacco: Never Assessed Interpersonal Safety Answer Date Record ed Physically Hurt Never 05/16/2020 Verbally Threaten Not on file 05/16/2020 Sex and Gender Information Value Date Recorded Sex Assigned at Not on file Gender Identity Genderqueer/Neutral 03/05/2023 1 4:56 EDT Sexual Orientation Something else 03/05/2023 14 :56 EDT documented as of this encounter Miscellaneous Notes * Telephone Encounter - Madelyn Pinedo RN - 05/27/2021 0842 EDT Left another message advising pt call pcp to be rechecked or to prescribe antibiotics if needed, advised she could call back with any further questions. MADELYN PINEDO RN 05/27/21 8:44 * Telephone Encounter - Charlotte Corona RN - 05/26/2021 0842 EDT Left message requesting call back. Per the visit note viral illness was suspected and follow up with PCP was advised for continued symptoms. It is not likely that we would prescribe antibiotics without re-eval. Calling to inquire about symptoms. CHARLOTTE CORONA RN 05/26/21 8:44 * Telephone Encounter - Yahaira Antoine - 05/25/2021 1601 EDT Covid results received, she is wondering if she may have a sinus infection, could she get some antibiotics so she can start to feel better? documented in this encounter Plan of Treatment Not on file documented as of this encounter Visit Diagnoses Not on filedocumented in this encounter Care Teams Welder/Fitter Relationship Specialty Start Date End Date Nicky Brewster MD [address] [place] [address] PCP - General 12/24/16 documented as of this encounter
--- OUTSIDE RECORDS SUMMARY | 2024-05-28 10:36 | XMS_ITS | Encounter Summary ---
Author Organization [facility] Address [address] [place] [address] Care Team Providers Care Group Insurance Specialist Name Role Phone Nicky Brewster MD Primary Care Provider [phone] Encounter Details Date Type Department Care Team (Late st Contact Info) Description 07/12/2021 Results Only [facility] Lab - Main [address] [address] Unknown, Provider, Social History Tobacco Use Types [...] Date/Time Associated Diagnosis Comments COVID-19 TESTING Routine 07/12/2021 15:4 7 EDT documented in this encounter Results * COVID-19 TESTING (07/12/2021 15:47 EDT) COVID-19 rt-PCR Result Not Detected 07/12/2021 16:51 EDT [facility] Comment: This assay is designed to [...] terminated or revoked sooner. Performed on the [employer] GeneXpert Instrument at [facility] [address] 07/12/2021 15:4 7 EDT 07/12/2021 15:47 EDT Provider Unknown MICROBIOLOGY - GENER AL ORDERABLES Performing Organization Address City/State/[facility] Co de Phone Number [facility] [address] [place] [address] documented in this encounter Visit Diagnoses Not on filedocumented in this encounter Care Teams Group Insurance Specialist Relationship Specialty Start Date End Date Nicky Brewster MD [address] [place] [address] PCP - General 12/24/16 documented as of this encounter
--- OUTSIDE RECORDS SUMMARY | 2024-05-28 10:36 | XMS_ITS | Encounter Summary ---
Author Organization [facility] Address [address] [place] [address] Care Team Providers Care Branding Specialist Name Role Phone Nicky Brewster MD Primary Care Provider [phone] Encounter Details Date Type Department Care Team (Latest Contact Info) Description 05/01/2023 Travel Social History Tobacco Use Types Packs/Day Years [...] 20:14 EDT documented as of this encounter Functional Status Functional Status Response Date of Assess ment Are you deaf or do you have serious difficulty h earing? No 02/02/2022 documented as of this encounter Plan of Treatment Not on file documented as of this encounter Visit Diagnoses Not on filedocumented in this encounter Care Teams Branding Specialist Relationship Specialty Start Date End Date Nicky Brewster MD [address] [place] [address] PCP - General 12/24/16 documented as of this encounter
--- OUTSIDE RECORDS SUMMARY | 2024-05-28 10:36 | XMS_ITS | Encounter Summary ---
Author Organization [facility] Address [address] [place] [address] Care Team Providers Care Bulk Receiver Name Role Phone Nicky Brewster MD Primary Care Provider Encounter Details Date Type Department Care Team (Late st Contact Info) Description 09/09/2021 Lab Requisition [facility] Lab - Main [address] [address] Social History Tobacco Use Types Packs/Day Years [...] documented as of this encounter Care Teams Bulk Receiver Relationship Specialty Start Date End Date Nicky Brewster MD [address] [place] [address] PCP - General 12/24/16 documented as of this encounter
--- OUTSIDE RECORDS SUMMARY | 2024-05-28 10:36 | XMS_ITS | Encounter Summary ---
Author Organization [facility] Address [address] [place] [address] Care Team Providers Care Factory Assembler Name Role Phone Nicky Brewster MD Primary Care Provider [phone] Encounter Details Date Type Department Care Team (Late st Contact Info) Description 08/15/2021 Results Only Imaging [facility] Radiology Results [address] [place] [address] Sylvia Hyde, DO [address] [place] [address] Social History Tobacco Use Types Packs/Day Years [...] Procedure Name Priority Date/Time Associated Diagnosis Comments US EXTREMITY 08/15/2021 16:07 EDT documented in this encounter Results * US EXTREMITY (08/15/2021 16:07 EDT) Anatomical Region Laterality Modality Other 08/15/2021 16:0 4 EDT Narrative 08/15/2021 16:07 EDT ? EXAM: ULTRASOUND/DOPPLER VEIN LOWER EXT B EX. D/ (1406) ? CLINICAL INFORMATION: ? BILAT LOWERE EXTREM. PAIN ? INDICATION: BILAT LOWER EXTREM. PAIN. ? COMPARISON: None. ? TECHNIQUE: Real-time ultrasound scan of the veins of the right lower ? extremity with color Doppler flow, spectral waveform analysis and ? compression. ? FINDINGS: ? Right lower extremity: ?Deep veins: Unremarkable. No DVT in the visualized right common ? femoral, profunda femoris, femoral or popliteal veins. Veins ? demonstrate normal color flow, are normally compressible, with normal ? phasic flow and/or augmentation response. No DVT identified within ? the proximal calf the veins. ?Superficial veins: Unremarkable. No thrombus in the visualized ? great saphenous vein. ?Soft tissues: No acute findings. No popliteal cyst. ? Left lower extremity: ?Deep veins: Unremarkable. No DVT in the visualized left common ? femoral, profunda femoris, femoral or popliteal veins. Veins ? demonstrate normal color flow, are normally compressible, with normal ? phasic flow and/or augmentation response. No DVT identified within ? the proximal calf the veins. ?Superficial veins: Unremarkable. No thrombus in the visualized ? great saphenous vein. ?Soft tissues: No acute findings. No popliteal cyst. ? IMPRESSION: No deep vein thrombosis identified within either lower ? extremity. ? REPORT SIGNED IN OTHER VENDOR SYSTEM 08/15/2021 ?Reported By: Royal Osborne MD ? CC: Nicky Brewster ? Transcribed Date/Time: 08/15/2021 (4714) ? Chemical Tester: ? Printed Date/Time: 08/15/2021 (4231) ? PAGE 1 ? Signed Report ? Procedure Note Royal Osborne MD - 08/15/2021 EXAM: ULTRASOUND/DOPPLER VEIN LOWER EXT B EX. D/ (1406) CLINICAL INFORMATION: BILAT LOWERE EXTREM. PAIN INDICATION: BILAT LOWER EXTREM. PAIN. COMPARISON: None. TECHNIQUE: Real-time ultrasound scan of the veins of the rightlower extremity with color Doppler flow, spectral waveform analysis and compression. FINDINGS: Right lower extremity: Deep veins: Unremarkable. No DVT in the visualized right common femoral, profunda femoris, femoral or popliteal veins. Veins demonstrate normal color flow, are normally compressible, withnormal phasic flow and/or augmentation response. No DVT identified within the proximal calf the veins. Superficial veins: Unremarkable. No thrombus in the visualized great saphenous vein. Soft tissues: No acute findings. No popliteal cyst. Left lower extremity: Deep veins: Unremarkable. No DVT in the visualized left common femoral, profunda femoris, femoral or popliteal veins. Veins demonstrate normal color flow, are normally compressible, withnormal phasic flow and/or augmentation response. No DVT identified within the proximal calf the veins. Superficial veins: Unremarkable. No thrombus in the visualized great saphenous vein. Soft tissues: No acute findings. No popliteal cyst. IMPRESSION: No deep vein thrombosis identified within either lower extremity. REPORT SIGNED IN OTHER VENDOR SYSTEM 08/15/2021 Reported By: Royal Osborne MD CC: Nicky Brewster Transcribed Date/Time: 08/15/2021 (2447) Chemical Tester: Printed Date/Time: 08/15/2021 (0406) PAGE 1 Signed Report Sylvia Hyde DO IMG US ORDERABLE S documented in this encounter Visit Diagnoses Not on filedocumented in this encounter Additional Health Concerns Infection Onset Date Last Indicated Resolved Time R/O COVID-19 01/03/2022 01/03/2022 01/08/2022 22:1 5 EDT R/O COVID-19 06/20/2023 06/20/2023 06/21/2023 0:18 EDT documented as of this encounter Care Teams Factory Assembler Relationship Specialty Start Date End Date Nicky Brewster MD [address] [place] [address] PCP - General 12/24/16 documented as of this encounter
--- OUTSIDE RECORDS SUMMARY | 2024-05-28 10:36 | XMS_ITS | Encounter Summary ---
Author Organization [facility] Address [address] [place] [address] Care Team Providers Care Credit Risk Analytics Manager Name Role Phone Nicky Brewster MD Primary Care Provider [phone] Encounter Details Date Type Department Care Team (Latest Contact Info) Description 01/03/2022 Transcribe Orders [facility] Lab - Main [place] [address] [place], [place] [address] Health, [facility] Employee Health examination in population survey (Primary Dx) Social History Tobacco Use Types [...] on file documented as of this encounter Results * COVID-19 TESTING ([facility] [place]) (01/03/2022 18:33 EDT) Performing Lab [facility] 01/03/2022 18:[address] [facility] Swab BOTH ANTERIOR NARES / Unknown Swab / Unknown 01/03/2022 18:33 EDT 01/03/2022 18:33 EDT [facility] Employee Health MICROBIOLOGY - GENERAL ORDERABLES Performing Organization Address City/State/[facility] Co de Phone Number [facility] [address] [place] [address] documented in this encounter Visit Diagnoses Diagnosis Health examination in population survey- Primary documented in this encounter Care Teams Credit Risk Analytics Manager Relationship Specialty Start Date End Date Nicky Brewster MD [address] [place] [address] PCP - General 12/24/16 documented as of this encounter
--- OUTSIDE RECORDS SUMMARY | 2024-05-28 10:36 | XMS_ITS | Encounter Summary ---
Author Organization [facility] Address [address] [place] [address] Care Team Providers Care Drawing In Machine Tender Name Role Phone Nicky Brewster MD Primary Care Provider [phone] Encounter Details Date Type Department Care Team (Late st Contact Info) Description 01/14/2021 Results Only Imaging [facility] [address] [place] [address] Yudi Mendoza PA-C [address] [place] [address] Social History Tobacco Use Types [...] Procedure Name Priority Date/Time Associated Diagnosis Comments EKG 12-LEAD 01/14/2021 14:10 EDT documented in this encounter Results * EKG 12-LEAD (01/14/2021 14:10 EDT) 01/14/2021 14:1 0 EDT Narrative [facility] - 01/14/2021 14:10 EDT ? [facility] ? Test Date: ?2021-01-14 14:10:49 Pat Name: ? CYN FERRERA ? Department: ?Room: ? Gender: ? F ?Furnace Loader: ?? SPD : ?1980 ? Requested By: Order Number: ?Reading MD: ?? Mack Robert, MD ? Measurements Intervals ?[place] ? Rate: ? 109 ?P: ?23 MT: ? 152 ?QRS: ?4 QRSD: ? 86 ? T: ?-22 QT: ? 356 ? QTc: ?479 ? Interpretive Statements Sinus tachycardia Nonspecific T wave abnormality Abnormal ECG No previous ECG available for comparison Electronically Signed On 01-17-2021 16:31:29 EDT by Mack Robert MD [email or web address] [email or web address] [email or web address] Procedure Note Mack Robert MD - 01/17/2021 [facility] Test Date: 2021-01-14 14:10:49 Pat Name: CYN FERRERA Department: Room: Gender: F Furnace Loader: SHAMA : 1980 Requested By: Order Number: Reading MD: Mack Robert MD Measurements Intervals [place] Rate: 109 P: 23 MT: 152 QRS: 4 QRSD: 86 T: -22 QT: 356 QTc: 479 Interpretive Statements Sinus tachycardia Nonspecific T wave abnormality Abnormal ECG No previous ECG available for comparison Electronically Signed On 01-17-2021 16:31:29 EDT by Mack Robert MD [email or web address] OKLAHOMA [email or web address] Yudi Mendoza PA-C CARDIAC ECG ORDERA [facility] [address] [place] [address] documented in this encounter Visit Diagnoses Not on filedocumented in this encounter Additional Health Concerns Infection Onset Date Last Indicated Resolved Time R/O COVID-19 01/03/2022 01/03/2022 01/08/2022 22:1 5 EDT R/O COVID-19 06/20/2023 06/20/2023 06/21/2023 0:18 EDT documented as of this encounter Care Teams Drawing In Machine Tender Relationship Specialty Start Date End Date Nicky Brewster MD [address] [place] [address] PCP - General 12/24/16 documented as of this encounter
--- OUTSIDE RECORDS SUMMARY | 2024-05-28 10:36 | XMS_ITS | Encounter Summary ---
Author Organization [facility] Address [address] [place] [address] Care Team Providers Care Dye Padder Operator Name Role Phone Nicky Brewster MD Primary Care Provider [phone] Reason for Visit * Reason Comments Hand Pain Per pt I was puttin g gloves on just before 5pm today and heard a crunch. I'm having pain in my left middle finger and it's starting to swell Encounter Details Date Type Department Care Team (Late st Contact Info) Description 05/01/2023 20:40 EDT - 05/01/2023 21:02 EDT Emergency [facility] Emergency Department [address] [place] [address] Verna Chapman, PA-C [address] [facility], [facility] [address] [place] [phone] Sprain of interphalangeal joint of left middle finger, initial encounter (Primary Dx) Discharge Disposition: Home or Self Care Social [...] Recorded In the last 10 days, have manish davis been in contact with someone who was confirmed or suspected to have Coronavirus/COVID-19? No / Unsure 05/01/2023 20:14 EDT documented as of this encounter Last Filed Vital Signs Vital Sign Reading Time Taken Comments Blood Pressure 160/58 05/01/20232010 EDT Pulse 103 05/01/20232010 EDT Temperature 2.4 ??C (36.4 ??F) 05/01/20232010 EDT Respiratory Rate 20 05/01/20232010 EDT Oxygen Saturation 96% 05/01/20232010 EDT Inhaled Oxygen Concentration - - Weight 131.1 kg (289 lb) 05/01/20232010 EDT Height 157.5 cm (5' 2) 05/01/20232010 EDT Body Mass Index 52.86 05/01/20232010 EDT documented in this encounter Functional Status Functional Status Response Date of Assess ment Are you deaf or do you have serious difficulty h earing? No 02/02/2022 documented as of this encounter Discharge Instructions * Discharge Instructions* Verna Chapman PA-C - 05/01/2023 20:57 EDT I suspect a mild sprain of your finger and expect you will improve with ice, elevation and use of asplint to help protect it. documented in this encounter Medications at Time of Discharge [...] BOTH NOSTRILS ONCE A DAY NEEDED 03/18/2023 [employer] DELICA PLUS LANCET 33 gauge misc USE ONE LANCET TWO TIMES A DAY DIRECTED 03/07/2023 [employer] VERIO FLEX METER USE DIRECTED ONCE DAILY TO CHECK BLOOD SUGAR 06/23/2022 [employer] VERIO TEST STRIPS test strips USE ONE STRIP VIA METER TWO TIMES A DAY 03/06/2023 TRULICITY 1.5 mg/0.5 mL subcutaneous pen once a week. 04/05/2023 Benzoyl Peroxide 5 % lotion 1 ayad applied topically 2 times a day 07/11/2023 citalopram (CELEXA) 10 mg tablet 1 tab(s) orally once a day 07/11/2023 cyanocobalamin (VITAMIN B12) 1,000 mcg/mL injection 1000 mcg intramuscularly once a month 07/11/2023 ergocalciferol (DRISDOL; VITAMIN D2) 1,250 mcg (50,000 unit) capsule 1 cap(s) orally once a week 02/18/2010 07/11/2023 hydroxychloroquine (PLAQUENIL) 200 mg tablet 1 tab(s) orally once a day 03/07/2010 07/11/2023 spironolactone (ALDACTONE) 100 mg tablet 1 tab(s) orally once a day 07/11/2023 traMADol (ULTRAM) 50 mg tablet 1-2 tabs orally BID 07/11/20 triamcinolone (KENALOG) 0.1 % cream 10/17/20182022 documented as of this encounter Discharge Disposition Disposition Code Departure Means Destination Comment s Home or Self Nursing Home documented in this encounter ED Notes * Hollie Duran RN - 05/01/20232100 EDT Splint applied to finger, pt tolerated well. * Verna Chapman PA-C - 05/01/20232056 EDT Emergency Department Visit Medical Decision Making 42-year-old right-handed female here with some pain to the left middle finger after hearing a crackwhen she pulled a glove on today. She is moving the hand well and has normal neurovascular exam. I do not suspect a fracture and do not feel an x-ray is indicated at this time. I have recommended supportive care for likely sprain and she is provided with a splint. She will use ice and elevate as needed. She is advised follow-up with her PCP if she is not improving as expected over the next coupleof weeks Medical Decision Making Sprain of interphalangeal joint of left middle finger, initial encounter: acute illness or injury Final diagnoses: Sprain of interphalangeal joint of left middle finger, initial encounter Disposition: Discharged Chief complaint: left middle finger pain HPI Cyn Renteria is a 42 y.o. genderqueer/neutral with hx inflammatory arthropathy, ibs, fibromyalgiawho presents to the ED for left middle finger pain. a few hours ago she was pulling on a glove and felt an crunch in her left middle finger. she is right handed. she feels some swelling has developed. she can still move the finger. she has applied ice but tries not to take tylenol and ibuprofen. History was provided by: patient Records reviewed include: Patient's pertinent PMH, FH, SH were reviewed and edited as necessary. Nursing notes reviewed. A medical screening exam was performed. Physical Exam BP (!) 160/58 (BP Cuff Location: Left arm, BP Patient Position: Sitting) Pulse 103 Temp (!) 2.4??C (36.4 ??F) (Oral) Resp 20 Ht 157.5 cm (62) Wt (!) 131.1 kg (289 lb) SpO2 96% BMI 52.86 kg/m?? Physical Exam Constitutional: Well appearing in no acute distress HEENT: Normocephalic, atraumatic, pupils equal and reactive to light Neck: Full ROM Heart: Normal rate. Warm and well perfused. Lungs: No respiratory distress. Skin: No overt rashes on exposed skin Extremities: Moving spontaneously, warm and well perfused. The left middle finger has normal sensation and capillary refill. There are some mild tenderness atthe IP joint. There is no significant swelling noted. There is full strength and range of motion ofthe digit. Neuro: Awake, alert, oriented. Speech is fluent. Psych: Normal affect, appropriate speech, appropriate eye contact. Procedures Procedures * Hollie Duran RN - 05/01/20232044 EDT Given ice pack and had pt take rings off finger. Offered bag for belongings but pt declined. * Christie Bourgeois RN - 05/01/20232010 EDT Per pt I was putting gloves on just before 5pm today and heard a crunch. I'm having pain in my left middle finger and it's starting to swell documented in this encounter Plan of Treatment Not on file documented as of this encounter Visit Diagnoses Diagnosis Sprain of interphalangeal joint of left middle finger, initial encounter- Primary documented in this encounter Care Teams Dye Padder Operator Relationship Specialty Start Date End Date Nicky Brewster MD [address] [place] [address] PCP - General 12/24/16 documented as of this encounter
--- OUTSIDE RECORDS SUMMARY | 2024-05-28 10:36 | XMS_ITS | Encounter Summary ---
Author Organization [facility] Address [address] [place] [address] Care Team Providers Care Casting Assistant Name Role Phone Nicky Brewster MD Primary Care Provider [phone] Encounter Details Date Type Department Care Team (Late st Contact Info) Description 02/15/[address] [facility] Lab - Main [place] [address] [place] [address] Health, [facility] Employee Encounter for screening for other viral diseases Social History Tobacco Use Types Packs/Day Years [...] Name Priority Date/Time Associated Diagnosis Comments [id number] [facility] (TESTING ONLY) STAT 02/15/2022 9:00 EDT Encounter for screening for other viral diseases COVID-19 TESTING STAT 02/15/2022 9:00 EDT Encounter for screening for other viral diseases documented in this encounter Results * COVID-19 [facility] (TESTING ONLY) (02/15/2022 9:00 EDT) Swab 02/15/2022 9:00 EDT 02/15/2022 9:28 EDT [facility] Employee Health MICROBIOLOGY - GENERAL ORDERABLES [facility] [address] [place] [address] * COVID-19 TESTING (02/15/2022 9:00 EDT) COVID-19 rt-PCR Result Negative Negative 02/15/2022 10:23 EDT [facility] Comment: This test has not been [...] terminated or revoked sooner. Performed on the [employer] GeneXpert Instrument The 2019 novel coronavirus (SARS-CoV-2) target nucleic acids are not detected. Performing Lab Cepheid GeneXpert [facility] 02/15/2022 10:23 EDT [facility] Swab 02/15/2022 9:00 EDT 02/15/2022 9:28 EDT [facility] Employee Health MICROBIOLOGY - GENERAL ORDERABLES [facility] [address] [place] [address] documented in this encounter Visit Diagnoses Diagnosis Encounter for screening for other viral diseases documented in this encounter Additional Health Concerns Infection Onset Date Last Indicated Resolved Time R/O COVID-19 06/20/2023 06/20/2023 06/21/2023 0:18 EDT documented as of this encounter Care Teams Casting Assistant Relationship Specialty Start Date End Date Nicky Brewster MD [address] [place] [address] PCP - General 12/24/16 documented as of this encounter
--- OUTSIDE RECORDS SUMMARY | 2024-05-28 10:36 | XMS_ITS | Encounter Summary ---
Author Organization [facility] Address [address] [place] [address] Care Team Providers Care Correctional Classification Counselor Name Role Phone Nicky Brewster MD Primary Care Provider [phone] Reason for Visit * Reason Onset Date Comments Appointment Related 05/08/2023 Encounter Details Date Type Department Care Team (Late st Contact Info) Description 05/08/2023 Telephone [facility] - [facility] [place] - [place] [address] [place] [address] Ankita García PA-C [address] [place] [phone] Appointment Related Social History Tobacco Use Types Packs/Day Years [...] encounter Miscellaneous Notes * Telephone Encounter - Larisa Severino - 05/08/2023 0958 EDT [facility] employee, called and LVM #1 for scheduling documented in this encounter Plan of Treatment Not on file documented as of this encounter Visit Diagnoses Not on filedocumented in this encounter Additional Health Concerns Infection Onset Date Last Indicated Resolved Time R/O COVID-19 06/20/2023 06/20/2023 06/21/2023 0:18 EDT documented as of this encounter Care Teams Correctional Classification Counselor Relationship Specialty Start Date End Date Nicky Brewster MD [address] [place] [id number] PCP - General 12/24/16 documented as of this encounter
--- OUTSIDE RECORDS SUMMARY | 2024-05-28 10:36 | XMS_ITS | Encounter Summary ---
Author Organization [facility] Address [address] [place] [address] Care Team Providers Care Director Auto Name Role Phone Nicky Brewster MD Primary Care Provider [phone] Encounter Details Date Type Department Care Team (Latest Contact Info) Description 09/13/2021 Travel Social History Tobacco Use Types Packs/Day [...] Exposure Response Date Recorded In the last month, have you been in contact with someone who was confirmed or suspected to have Coronavirus / COVID-19? No / Unsure 09/13/2021 10:03 EST documented as of this encounter Functional Status Functional Status Response Date of Assess ment Are you deaf or do you have serious difficulty h earing? No 09/13/2021 documented as of this encounter Plan of Treatment Not on file documented as of this encounter Visit Diagnoses Not on filedocumented in this encounter Care Teams Director Auto Relationship Specialty Start Date End Date Nicky Brewster MD [address] [place] [phone] PCP - General 12/24/16 documented as of this encounter
--- OUTSIDE RECORDS SUMMARY | 2024-05-28 10:36 | XMS_ITS | Encounter Summary ---
Author Organization [facility] Address [address] [place] [address] Care Team Providers Care Alley Tender Name Role Phone Nicky Brewster MD Primary Care Provider [phone] Reason for Visit * Reason Comments Hand Injury Left Middle and Inde x Finger Injury from 05/01/23. 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 Tolerating well. States that her hand feels better. Still has discomfort if she puts pressure on her finger in a certain direction. Still feels that it doesn't bend properly at times and that causes discomfort. Has used the Coban at night. States that she wakes up with more stiffness but less pain. Reports that she is trying to keep the shoulder mobile, but is feeling some popping and crunching Encounter Details Date Type Department Care Team (Latest Contact Info) Description 05/21/2023 14:30 EDT Office Visit [facility] Occupational Medicine [facility] [address] [place] [address] Douglas Lee MD MPH [address] [place] [phone] Sprain of interphalangeal joint of left [...] Sign Reading Time Taken Comments Blood Pressure 152/72 05/21/2023 1427 EDT Pulse 96 05/21/2023 1427 EDT Temperature - - Respiratory Rate 12 05/21/2023 1427 EDT Oxygen Saturation - - Inhaled Oxygen Concentration - - Weight - - Height - - Body Mass Index - - documented in this encounter Functional Status Functional Status Response Date of Assess ment Are you deaf or do you have serious difficulty h earing? No 02/02/2022 documented as of this encounter Progress Notes * Douglas Lee MD MPH - 05/21/2023 1430 EDT [facility] Occupational Medicine Visit Note Subjective: Chief Complaint(s): Hand Injury (Left Middle and Index Finger Injury from 05/01/23. 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 Tolerating well. States that her hand feels better. Still has discomfort if she puts pressure on her finger in a certain direction. Still feels that it doesn't bend properly at times and that causes discomfort. Has used the Coban at night. States that she wakes up with more stiffness but less pain. Reports that she is trying to keep the shoulder mobile, but is feeling some popping and crunching ) HPI: This is a 42-year-old woman who returns for follow-up. She has a history of injuring her left thirddigit at the PIP joint. She returns today reporting that she has tolerated full duty. She has been wearing the Coban that I gave her at night. She feels like she is trending in a good direction. However if she puts lateral or ulnar stress on the radial aspect of the joint does increase her discomfort. She is trying to move her fingers. She is able to make a full composite fist now she is decreasing her use of diclofenac. Overall she finds that things are trending in the right direction and she is happy with how she is doing. Review of systems denies fever, chills, change in taste smell Objective: Examination: Vitals: blood pressure is 152/72 (abnormal) and Cyn Renteria's pulse is 96. Cyn Renteria's respiration is 12. There is no height or weight on file to calculate BMI. 05/21/2023 14:27 Pain Score (from Vitals) Initial score 5 Final score 5 Location 12 On physical exam this is a pleasant 42-year-old woman. He is able to fully abduct and abduct her fingers she is able to make a full composite fist she appears to have full range of motion. She is wharf tender over the medial aspect of the PIP joint out towards the DIP joint on the radial aspect of the finger. The joint feels stable with medial lateral stress. Brisk capillary refill no sensory changes. Assessment & Plan: ICD-10-CM ICD-9-CM 1. Sprain of interphalangeal joint of left middle finger, subsequent encounter S63.633D V58.89 842.13 In assessment this is a 42-year-old woman with a finger strain overall she is making gains. I will hold off on OT for now I will follow her up in 2 weeks time. I will keep her on full duty. If she isnot tolerating full duty, she continues to be symptomatic on follow-up that is when I would consider referring her to OT. I am hoping she will just continue to improve. She can wear the Coban at night for comfort as needed. Plan 1. Medication no new medication at this time 2. Physical therapy still considering OT but holding off for now I have given her home exercise program 3. Referrals no new referrals 4. Work capacity full duty 5. Follow-up I will follow her up in 2 weeks time This note was dictated using dictation software and there may be inadvertent errors or omissions. Common errors include is for has and not for now No orders of the defined types were placed in this encounter. Patient Active Problem List Diagnosis ??? Vitamin D deficiency ??? Vitamin B12 deficiency ??? 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 [...] Primary documented in this encounter Care Teams Alley Tender Relationship Specialty Start Date End Date Nicky Brewster MD [address] [place] [id number] PCP - General 12/24/16 documented as of this encounter
--- OUTSIDE RECORDS SUMMARY | 2024-05-28 10:36 | XMS_ITS | Encounter Summary ---
Author Organization [facility] Address [address] [place] [address] Care Team Providers Care Rn Tele Name Role Phone Nicky Brewster MD Primary Care Provider Reason for Referral * PT/OT/ST (Routine/Next Available) - Specialty Report Received Specialty Diagnoses / Procedures [facility] To [facility] Rehab Therapies Diagnoses Sprain of interphalangeal joint of left middle finger, subsequent encounter Douglas Lee MD MPH [address] [place] [phone] [facility] [address] [place] [address] Referral ID Status Reason Start Date Expiration Date Visits Requested Visits Authorized [id number] Specialty Report Received Specialty Services Required 06/04/2023 1 1 Question Answer Reason for Request: LEft middle finger sprain continues to be symptomatic. Plesae work on symptom reduction Comments LEft middle finger sprain continues to be symptomatic. Plesae work on symptom reduction Reason for Visit * Reason Comments Finger Injury Left middle and inde x finger injury - 05/01/23. Working full duty. HEP - doing few times daily when stiff. Pain - 6-9/10 pain, Treatment - Heat for pain relief. Encounter Details Date Type Department Care Team (Latest Contact Info) Description 06/04/2023 13:30 EDT Office Visit [facility] Occupational Medicine [facility] [address] [place] [address] Douglas Lee MD MPH [address] [place] [phone] Sprain of interphalangeal joint of [...] Sign Reading Time Taken Comments Blood Pressure 130/74 06/04/2023 1337 EDT Pulse 88 06/04/2023 1337 EDT Temperature - - Respiratory Rate 24 06/04/2023 1337 EDT Oxygen Saturation - - Inhaled Oxygen Concentration - - Weight - - Height - - Body Mass Index - - documented in this encounter Functional Status Functional Status Response Date of Assess ment Are you deaf or do you have serious difficulty h earing? No 02/02/2022 documented as of this encounter Progress Notes * Douglas Lee MD MPH - 06/04/2023 1330 EDT [facility] Occupational Medicine Visit Note Subjective: Chief Complaint(s): Finger Injury (Left middle and index finger injury - 05/01/23. Working full duty. HEP - doing few times daily when stiff. Pain - 6- 9/10 pain, Treatment - Heat for pain relief. 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 She hasa history of injuring her left middle finger on 05/01/2023. On a glove. She had been improving. I did see her previously 2 weeks ago. She reports that she feels a little bit that she has plateaued in her recovery and she is continuing to report a fair amount of pain right now. She is reporting her pain hovers between a 6 and 9 out of 10. She is trying to work on her range of motion she is not taking any active medication. If she bangs it or bumps it or rubs that she gets increasing pain pain is really located around the PIP joint of the left middle finger. She does have some concerns about her job. She is concerned with her relationship with her supervisory aide and that there may be some performance issues. We did talk about medical care in the event that she for some reason would be terminated for because I did explain that she would still be eligible for medical care but not time loss benefits. We did talk about occupational therapy as the next step in her recovery if she is continue to be symptomatic and I will put that order in today. Review of systems denies fever, chills, change in taste and smell Objective: Examination: Vitals: blood pressure is 130/74 and Cyn Renteria's pulse is 88. Cyn Renteria's respiration is 24. There is no height or weight on file to calculate BMI. 06/04/2023 13:37 Pain Score (from Vitals) Initial score 6 Final score 6 Location 12 On physical exam this is a pleasant 43-year-old woman easily gets out of her chair. She is a littleteary today. On direct observation there is no swelling or discoloration she is tender over the PIPjoint over the dorsum of the hand. She finds making tight flexion at the PIP joint does increase her pain on the left hand she is able to make a full composite fist she is able to fully extend the fingers she is able to adductor and abduct the fingers. She demonstrates excellent range of motion in the wrist with flexion extension ulnar and radial deviation. Assessment & Plan: ICD-10-CM ICD-9-CM 1. Sprain of interphalangeal joint of left middle finger, subsequent encounter S63.633D V58.89 AMB CONS/FOLLOW UP OCCUPATIONAL THERAPY - [facility] 842.13 In assessment this is a 43-year-old woman approximately 4 weeks out from a finger sprain. She had been improving although she seems to have plateaued in her improvement. I will place her into OT for now. She finds that she can do all aspects of her job so I will keep her on full duty for now. We did discuss how Worker's Comp. can change in the presence of work termination. I did my very best answer all of her questions. Plan 1. Medication no new medication [id number] Voltaren gel continues to be reasonable 2. Physical therapy I will place order for OT today for symptom reduction 3. Referrals I will place referral for OT 4. Work capacity I will keep her on full duty for now 5. Follow-up I will follow her up in approximately 2 weeks time This note was dictated using dictation software and there may be inadvertent errors or omissions. Common errors include is for has and not for now Orders Placed This Encounter Procedures ??? Amb Consult/Follow Up Occupational Therapy - [facility] LEft middle finger sprain continues to be symptomatic. Robby work on symptom reduction Standing Status: Future Standing Expiration Date: 06/04/2024 Referral Priority: Routine/Next Available Referral Type: PT/OT/ST Referral Reason: Specialty Services Required Number of Visits Requested: 1 Patient Active Problem List Diagnosis ??? Vitamin D deficiency ??? Vitamin B12 deficiency ??? long-term (current) use of non-steroidal anti-inflammatories (nsaid) ??? [...] mL subcutaneous pen, , Disp: , Rfl: Orders Placed This Encounter Procedures ??? Amb Consult/Follow Up Occupational Therapy - [facility] LEft middle finger sprain continues to be symptomatic. Robby work on symptom reduction Standing Status: Future Standing Expiration Date: 06/04/2024 Referral Priority: Routine/Next Available Referral Type: PT/OT/ST Referral Reason: Specialty Services Required Number of Visits Requested: 1 documented in this encounter Plan of Treatment Scheduled Referrals Name Type Priority Associated Diagnoses Orde r Schedule AMB CONS/FOLLOW UP OCCUPATIONAL THERAPY - [facility] Outpatient Referral Routine/Next Available Sprain of interphalangeal joint of left middle finger, subsequent encounter Expected: 06/11/2023 (Approximate), Expires: 06/04/2024 documented as of this encounter Visit Diagnoses Diagnosis Sprain of interphalangeal joint of left middle finger, subsequent encounter- Primary documented in this encounter Care Teams Rn Tele Relationship Specialty Start Date End Date Nicky Brewster MD [address] [place] [address] PCP - General 12/24/16 documented as of this encounter
--- OUTSIDE RECORDS SUMMARY | 2024-05-28 10:36 | XMS_ITS | Encounter Summary ---
Author Organization [facility] Address [address] [place] [address] Care Team Providers Care Purchasing Department Clerk Name Role Phone Nicky Brewster MD Primary Care Provider [phone] Encounter Details Date Type Department Care Team (Late st Contact Info) Description 01/03/2022 Orders Only [facility] [place] [address] [address] Sari Vogel Health examination in population survey (Primary Dx) [...] Name Priority Date/Time Associated Diagnosis Comments ZZCOVID-19 TESTING ([facility] [place] [facility]) Routine 01/03/2022 18:33 EDT Health examination in population survey ZZCOVID-19 [facility] [place] ONLY) Today 01/03/2022 18:33 EDT Health examination in population survey documented in this encounter Results * COVID-19 PMC [facility] (TESTING ONLY) (01/03/2022 18:33 EDT) COVID-19 rt-PCR Result Negative Negative 01/03/2022 19:21 EDT [facility] Comment: This test has not [...] terminated or revoked sooner. Performed on the [employer] GeneXpert Instrument The 2019 novel coronavirus (SARS-CoV-2) target nucleic acids are not detected. Swab BOTH ANTERIOR NARES / Unknown Swab / Unknown 01/03/2022 18:33 EDT 01/03/2022 18:33 EDT [facility] Employee Health MICROBIOLOGY - GENERAL ORDERABLES [facility] [address] [place] [id number] * COVID-19 TESTING ([facility] [place] [facility]) (01/03/2022 18:33 EDT) Performing Lab [facility] 01/03/2022 18:33 EDT [facility] Swab BOTH ANTERIOR NARES / Unknown Swab / Unknown 01/03/2022 18:33 EDT 01/03/2022 18:33 EDT [facility] MICROBIOLOGY - GENERAL ORDERABLES [facility] [address] [place] [address] documented in this encounter Visit Diagnoses Diagnosis Health examination in population survey- Primary documented in this encounter Additional Health Concerns Infection Onset Date Last Indicated Resolved Time R/O COVID-19 01/03/2022 01/03/2022 01/08/2022 22:1 5 EDT documented as of this encounter Care Teams Purchasing Department Clerk Relationship Specialty Start Date End Date Nicky Brewster MD [address] [place] [address] PCP - General 12/24/16 documented as of this encounter
--- OUTSIDE RECORDS SUMMARY | 2024-05-28 10:36 | XMS_ITS | Encounter Summary ---
Author Organization [facility] Address [address] [place] [address] Care Team Providers Care Rn Licensed Practical Name Role Phone Nicky Brewster MD Primary Care Provider [phone] Encounter Details Date Type Department Care Team (Late st Contact Info) Description 12/14/2022 16:35 EST Phlebotomy Only [facility] - Outpatient Phlebotomy Drawing [address] [place] [address] Lab, [facility] Op Phlebotomy Type 2 diabetes mellitus without complication, unspecified whether keno terminal operator insulin use ([facility]); Biotin deficiency disease Social History Tobacco Use Types Packs/Day Years [...] 2 diabetes mellitus without complication, unspecified whether snf insulin use ([facility]) Biotin deficiency disease VITAMIN B12 STAT 12/14/2022 16:40 EST Type 2 diabetes mellitus without complication, unspecified whether keno terminal operator insulin use ([facility]) Biotin deficiency disease COMPREHENSIVE METABOLIC PANEL (CMP) Routine 12/14/2022 16:40 EST Type 2 diabetes mellitus without complication, unspecified whether keno terminal operator insulin use ([facility]) Biotin deficiency disease documented in this encounter Results * (ABNORMAL) COMPREHENSIVE METABOLIC PANEL (CMP) (12/14/2022 16:40 EST) Sodium 142 136 - 145 mmol/L 12/14/2022 17:24 [facility] Potassium 4.6 3.5 - 5.0 mmol/L 12/14/2022 17:24 [facility] Chloride 105 96 - 110 mmol/L 12/14/2022 17:24 [facility] CO2 Total 28 22 - 32 mmol/L 12/14/2022 17:24 [facility] Glucose 103(H) 70 - 100 mg/dL 12/14/2022 17:24 [facility] BUN 15 10 - 26 mg/dL 12/14/2022 17:24 [facility] Creatinine 0.66 0.52 - 1.04 mg/dL 12/14/2022 17:24 [facility] eGFR 111 >60 mL/min/1.7 3m2 12/14/2022 17:24 [facility] Total Protein 7.8 6.3 - 8.2 g/dL 12/14/2022 17:24 [facility] Albumin 4.1 3.4 - 4.9 g/dL 12/14/2022 17:24 [facility] Alkaline Phosphatase 104 38 - 126 U/L 12/14/2022 17:24 [facility] AST 29 15 - 46 U/L 12/14/2022 17:24 [facility] ALT 17 <35 U/L 12/14/2022 17:24 [facility] Bilirubin, Total 0.3 <1.4 mg/dL 12/15/19 17:24 [facility] Calcium 9.3 8.5 - 10.5 mg/dL 12/14/2022 17:24 [facility] Albumin/Globulin Ratio 1.1 1.0 - 2.5 12/14/2022 17:24 [facility] Anion Gap 9 5 - 14 12/14/2022 17:24 [facility] Blood VENOUS BLOOD / Unknown Venipuncture / Unknown 12/14/2022 16:40 EST 12/14/2022 16:41 EST Nicky Brewster MD CHEMISTRY & BLOOD GA S ORDERABLES Performing Organization Address [facility] Co de Phone Number [facility] [address] [place] [address] * (ABNORMAL) HEMOGLOBIN A1C (12/14/2022 16:40 EST) Hemoglobin A1c 7.1(H) <5.7 % 12/14/2022 20:33 [facility] Comment: Glycemic Status References: Normal: ??<5.7% Pre-Diabetes: ??5.7% - 6.4% Diagnostic of Diabetes: ??> or = 6.5% (if confirmed) Est Avg Glucose 157 mg/dL 20:33 [facility] Comment:The eAG represents t he A1c result expressed as average glucose in mg/dL. Blood VENOUS BLOOD / Unknown Venipuncture / Unknown 12/14/2022 16:40 EST 12/14/2022 16:41 EST Nicky Brewster MD CHEMISTRY & BLOOD GA S ORDERABLES Performing Organization Address [facility] Co de Phone Number [facility] [address] [place] [address] * VITAMIN B12 (12/14/2022 16:40 EST) Vitamin B12 234 211 - 911 pg/mL 12/14/2022 18:13 EST [facility] Blood VENOUS BLOOD / Unknown Venipuncture / Unknown 12/14/2022 16:40 EST 12/14/2022 16:41 EST Narrative [facility] - 12/14/2022 18:13 EST The results of this assay can be falsely elevated due to the consumption of Biotin. Nicky Brewster MD CHEMISTRY & BLOOD GA S ORDERABLES [facility] [address] [place] [address] documented in this encounter Visit Diagnoses Diagnosis Type 2 diabetes mellitus without complication, unspecified whether keno terminal operator insulin use ([facility]) Biotin deficiency disease Mineral deficiency, not elsewhere classified documented in this encounter Care Teams Rn Licensed Practical Relationship Specialty Start Date End Date Nicky Brewster MD [address] [place] [address] PCP - General 12/24/16 documented as of this encounter
--- OUTSIDE RECORDS SUMMARY | 2024-05-28 10:36 | XMS_ITS | Encounter Summary ---
Author Organization [facility] Address [address] [place] [address] Care Team Providers Care Manager Strategic Development Name Role Phone Nicky Brewster MD Primary Care Provider [phone] Encounter Details Date Type Department Care Team (Late st Contact Info) Description 08/03/2021 Results Only [facility] Lab - Main [address] [address] Unknown, Provider, Social History Tobacco Use Types [...] Date/Time Associated Diagnosis Comments COVID-19 TESTING Routine 08/03/2021 14:5 5 EDT documented in this encounter Results * COVID-19 TESTING (08/03/2021 14:55 EDT) Performing Lab [facility] () 08/04/2021 6:27 EDT [facility] Comment: Please indicate the Triage Tier1 Test performed or referred by The [address], [place] [address] COVID-19 rt-PCR Result Not Detected Negative 08/04/2021 6:27 EDT [facility] Comment: This test has not [...] history, and epidemiological information. Performed on the [employer] instrument 08/03/2021 14:5 5 EDT 08/03/2021 14:55 EDT Provider Unknown MICROBIOLOGY - GENER AL ORDERABLES Performing Organization Address City/State/[facility] Co de Phone Number [facility] [address] [place] [address] documented in this encounter Visit Diagnoses Not on filedocumented in this encounter Care Teams Manager Strategic Development Relationship Specialty Start Date End Date Nicky Brewster MD [address] [place] [address] PCP - General 12/24/16 documented as of this encounter
--- OUTSIDE RECORDS SUMMARY | 2024-05-28 10:36 | XMS_ITS | Encounter Summary ---
Author Organization [facility] Address [address] [place] [address] Care Team Providers Care Ski Maker Name Role Phone Nicky Brewster MD Primary Care Provider [phone] Reason for Visit * Reason Comments Hand Injury Left Middle and Inde x Finger Injury from 05/01/23. 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 Patient arrives 13 minutes late for her appointment. Released back to work with some restrictions but allowed to wear gloves. Feels that the fingers are improving slowly. Reports having Shoulder pain from wearing the frog splint at night. Reports reduced shoulder ROM. Having difficulty reaching behind back. Encounter Details Date Type Department Care Team (Latest Contact Info) Description 05/16/2023 14:00 EDT Office Visit [facility] Occupational Medicine [facility] [address] [place] [address] Douglas Lee MD MPH [address] [place] [phone] Sprain of left middle finger, unspecified site of digit, subsequent encounter (Primary Dx) Social History Tobacco [...] Sign Reading Time Taken Comments Blood Pressure 138/84 05/16/2023 1418 EDT Pulse 88 05/16/2023 1418 EDT Temperature - - Respiratory Rate 12 05/16/2023 1418 EDT Oxygen Saturation - - Inhaled Oxygen Concentration - - Weight - - Height - - Body Mass Index - - documented in this encounter Functional Status Functional Status Response Date of Assess ment Are you deaf or do you have serious difficulty h earing? No 02/02/2022 documented as of this encounter Progress Notes * Douglas Lee MD MPH - 05/16/2023 1400 EDT [facility] Occupational Medicine Visit Note Subjective: Chief Complaint(s): Hand Injury (Left Middle and Index Finger Injury from 05/01/23. 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 Patient arrives 13 minutes late for her appointment. Released back to work with some restrictions but allowed to wear gloves. Feels that the fingers are improving slowly. Reports having Shoulder pain from wearing the frog splint at night. Reports reduced shoulder ROM. Havingdifficulty reaching behind back.) HPI: This is a 42-year-old woman who returns for follow-up. She has a history of injuring her third middle digit on 05/01/2023 when putting on a glove. 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 [place] saw her 1 week ago. At that time I did clear her to wear gloves. She reports that she has returned to work and that return to work is going okay. She does express some concern that there have been some utilization review rn being fired recently as well as resigning. She reports that it is slightly stressful. When she presented her work restrictions to her display fabrication supervisor her display fabrication supervisor said it was up to her to maintain her restrictions. I explained that it is both an employer's responsibility and an employee's responsibility to make sure work restrictions are followed. She has found the hot pack that I gave her last time to be helpful. She has been using diclofenac gel. She has not had any intolerable side effects and has found that to be helpful. Overall she feelslike she is making progress. We discussed return to full duty. She does feel that she probably can return to full duty and that it might be better to do that. She feels like she is improving. She has been reporting shoulder painfor the last couple of days following her sleep position. She has been wearing the aluminum foam splint at night. I did suggest it may be more comfortable to wrap the finger with Coban at night to keep more comfortable while sleeping. I gave her 2 rolls of one inch coban to be worn for comfort at night. Review of systems denies fever, chills, change in taste or smell Objective: Examination: Vitals: blood pressure is 138/84 and Cyn Renteria's pulse is 88. Cyn Renteria's respiration is 12. There is no height or weight on file to calculate BMI. 05/16/2023 14:18 Pain Score (from Vitals) Initial score 6 Final score 6 Location 12 On physical exam this is a pleasant 42-year-old woman. She is tender over the coracoid process. Sheis tender in the anterior shoulder. She maintains reasonable shoulder range of motion but does findand flexion and abduction are associated with pain. In terms of the left hand. She continues to be tender over the radial aspect of the PIP joint. She is little stiff with flexion but overall appears to have full range of motion of the third digit. This is with flexion and extension. She is able to make a full composite fist. No clear sensory changes. Assessment & Plan: ICD-10-CM ICD-9-CM 1. Sprain of left middle finger, unspecified site of digit, subsequent encounter S63.613D V58.89 842.10 In assessment this is a 42-year-old woman who strained her left third PIP joint. She does appear asif recovering. I did dispense some Coban and suggested she may want to wrap her finger 2-3 times gently at night to protect it if she is getting sore at night otherwise she does not need to continue to do this. We did discuss progression to full duty. She is feeling that that might be a good idea. I encouraged her to continue to use the diclofenac gel and to provide heat as needed. Plan 1. Medication [id number] diclofenac gel as needed for symptom relief following the instructions on the packaging. 2. Physical therapy I will continue to hold off on OT for now as she seems to be trending in the right direction. We did review range of motion exercises 3. Referrals no new referrals 4. Work capacity full duty work capacity 5. Follow-up I will follow her up in 1 week's time. 31 minutes is spent coordinating care. We talked about the status of her work environment. We talked about some of the stress in her work environment. We talked about her recovery. We talked about her shoulder which is not related to her work injury but is a source of discomfort. I answered all of her questions and filled out an updated form 20 This note was dictated using dictation software and there may be inadvertent errors or omissions. Common errors include is for has and not for now No orders of the defined types were placed in this encounter. Patient Active Problem List Diagnosis ??? Vitamin D deficiency ??? Vitamin B12 deficiency ??? snf (current) use of non-steroidal anti-inflammatories (nsaid) ??? Irritable bowel syndrome with diarrhea ??? Inflammatory polyarthropathy (HCC-CMS) (HCC) ??? Fibromyalgia ??? PCOS (polycystic ovarian syndrome) ??? Obesity ??? Sprain of left middle finger Past Medical History: Diagnosis Date ??? Carpal tunnel syndrome on both sides ??? Gestational diabetes ??? Migraine ??? Shingles 2008 Past Surgical History: Procedure Laterality Date ??? [...] this encounter Visit Diagnoses Diagnosis Sprain of left middle finger, unspecified site of digit, subsequent encounter- Primary documented in this encounter Historical Medications * This list may reflect changes made after this encounter. Medication Sig Dispensed Refills Start Date End Date diclofenac sodium (VOLTAREN) gel Apply topically 4 times daily. 07/11/2023 added in this encounter Care Teams Ski Maker Relationship Specialty Start Date End Date Nicky Brewster MD [address] [place] [address] PCP - General 12/24/16 documented as of this encounter
--- OUTSIDE RECORDS SUMMARY | 2024-05-28 10:36 | XMS_ITS | Encounter Summary ---
Author Organization [facility] Address [address] [place] [address] Care Team Providers Care Digital Product Specialist Name Role Phone Nicky Brewster MD Primary Care Provider [phone] Encounter Details Date Type Department Care Team (Late st Contact Info) Description 08/13/2021 23:20 EDT - 08/14/2021 0:12 EDT Emergency [facility] Emergency Department [address] [place] [address] Social History Tobacco Use Types Packs/Day Years Used Date Smoking Tobacco: Never Assessed Interpersonal Safety Answer Date Record ed Physically Hurt Never 05/16/2020 Verbally Threaten Not on file 05/16/2020 Sex and Gender Information Value Date Recorded Sex Assigned at Not on file Gender Identity Genderqueer/Neutral 03/05/2023 1 4:56 EDT Sexual Orientation Something else 03/05/2023 14 :56 EDT documented as of this encounter Medications at Time of Discharge Medication Sig Dispensed Refills Start Date End Date cetirizine (ZYRTEC) 10 mg tablet 1 cap(s) orally once a day clindamycin (CLINDAGEL) 1 % gel 1 ayad applied topically 2 times a day colestipol (COLESTID) 1 gram tablet 1 tab(s) orally 1 times a day DULoxetine (CYMBALTA) 30 mg delayed release capsule TAKE ONE CAPSULE BY MOUTH EVERY DAY INCREASE TO TWO TIMES A DAY IN 2 WEEKS 08/27/2020 levonorgestrel (MIRENA) 20 mcg/24 hours (5 yrs) 52 mg IUD 1 ea by intrauteral administration once Benzoyl Peroxide 5 % lotion 1 ayad [...] BID 07/11/20 triamcinolone (KENALOG) 0.1 % cream 10/17/2018 07/11/2023 documented as of this encounter Plan of Treatment Not on file documented as of this encounter Visit Diagnoses Not on filedocumented in this encounter Care Teams Digital Product Specialist Relationship Specialty Start Date End Date Nicky Brewster MD [address] [place] [address] PCP - General 12/24/16 documented as of this encounter
--- OUTSIDE RECORDS SUMMARY | 2024-05-28 10:36 | XMS_ITS | Encounter Summary ---
Author Organization [facility] Address [address] [place] [address] Care Team Providers Care Facility Service Associate Name Role Phone Nicky Brewster MD Primary Care Provider [phone] Encounter Details Date Type Department Care Team (Late st Contact Info) Description 02/21/2022 Lab Requisition [facility] Lab - Main [place] [address] [place] [id number] Health, [facility] Employee Encounter for other general examination Social History Tobacco Use Types Packs/Day Years [...] Name Priority Date/Time Associated Diagnosis Comments ZZCOVID-19 [facility] (TESTING ONLY) Today 02/21/2022 14:10 EDT Encounter for other general examination COVID-19 TESTING Today 02/21/2022 14:1 0 EDT Encounter for other general examination documented in this encounter Results * COVID-19 [facility] (TESTING ONLY) (02/21/2022 14:10 EDT) Swab 02/21/2022 14:1 0 EDT 02/21/2022 14:22 EDT [facility] MICROBIOLOGY - GENERAL ORDERABLES Performing Organization Address City/[facility] Co de Phone Number [facility] [address] [place] [phone] * COVID-19 TESTING (02/21/2022 14:10 EDT) COVID-19 rt-PCR Result Negative Negative 02/21/2022 17:11 EDT [facility] Performing Lab [employer] Gene[employer]pert [facility] 02/21/2022 17:11 EDT [facility] Swab 02/21/2022 14:1 0 EDT 02/21/2022 14:22 EDT [facility] MICROBIOLOGY - GENERAL ORDERABLES Performing Organization Address City/[facility]/ZIP Co de Phone Number [facility] [address] [place] [address] documented in this encounter Visit Diagnoses Diagnosis Encounter for other general examination documented in this encounter Additional Health Concerns Infection Onset Date Last Indicated Resolved Time R/O COVID-19 06/20/2023 06/20/2023 06/21/2023 0:18 EDT documented as of this encounter Care Teams Facility Service Associate Relationship Specialty Start Date End Date Nicky Brewster MD [address] [place] [id number] PCP - General 12/24/16 documented as of this encounter
--- OUTSIDE RECORDS SUMMARY | 2024-05-28 10:36 | XMS_ITS | Encounter Summary ---
Author Organization [facility] Address [address] [place] [address] Care Team Providers Care Net Developer With Wcf Name Role Phone Nicky Brewster MD Primary Care Provider [phone] Encounter Details Date Type Department Care Team (Late st Contact Info) Description 12/03/2021 Lab Requisition [facility] Pathology & Laboratory Medicine - [facility] [address] [place] [address] Outr Resulting Lab, Provider Social History Tobacco [...] Priority Date/Time Associated Diagnosis Comments ZZCOVID-19 TEST [facility] PCR Today 12/02/2021 14:40 EST COVID-19 TESTING Routine 12/02/2021 14:4 0 EST documented in this encounter Results * COVID-19 TEST [facility] PCR (12/02/2021 14:40 EST) Swab 12/02/2021 14:4 0 EST 12/03/2021 22:10 EST Provider Outr Resulting Lab MICROBIOLOGY - GENERAL ORDERABLES Performing Organization Address [facility] Co de Phone Number [facility] [address] [place] [address] * COVID-19 TESTING (12/02/2021 14:40 EST) COVID-19 rt-PCR Result Negative Negative 12/04/2021 11:58 EST [facility] Comment: This test [...] performed using the marylou SARS-CoV-2 assay ([employer] on the Marylou 6800 System Performing Lab Marylou [address] [facility] 12/04/2021 11:58 EST [facility] Swab 12/02/2021 14:4 0 EST 12/03/2021 22:10 EST Provider Outr Resulting Lab MICROBIOLOGY - GENERAL ORDERABLES Performing Organization Address [facility] Co de Phone Number [facility] [address] [place] [address] documented in this encounter Visit Diagnoses Not on filedocumented in this encounter Additional Health Concerns Infection Onset Date Last Indicated Resolved Time R/O COVID-19 01/03/2022 01/03/2022 01/08/2022 22:1 5 EDT R/O COVID-19 06/20/2023 06/20/2023 06/21/2023 0:18 EDT documented as of this encounter Care Teams Net Developer With W[employer] Relationship Specialty Start Date End Date Nicky Brewster MD [address] [place] [address] PCP - General 12/24/16 documented as of this encounter
--- OUTSIDE RECORDS SUMMARY | 2024-05-28 10:36 | XMS_ITS | Encounter Summary ---
Author Organization [facility] Address [address] [place] [address] Care Team Providers Care Webbing Supervisor Name Role Phone Nicky Brewster MD Primary Care Provider [phone] Encounter Details Date Type Department Care Team (Latest Contact Info) Description 12/08/2022 Transcribe Orders [facility] - Main [address] [address] Nicky Brewster MD [address] [place] [address] [phone] Type 2 diabetes mellitus without complication, unspecified whether ferry terminal supervisor insulin use ([facility]) (Primary Dx); Biotin deficiency disease Social History Tobacco Use [...] documented as of this encounter Results * (ABNORMAL) COMPREHENSIVE METABOLIC PANEL (CMP) (12/14/2022 16:40 EST) Sodium 142 136 - 145 mmol/L 12/14/2022 17:24 [facility] Potassium 4.6 3.5 - 5.0 mmol/L 12/14/2022 17:24 [facility] Chloride 105 96 - 110 mmol/L 12/14/2022 17:24 [facility] CO2 Total 28 22 - 32 mmol/L 12/14/2022 17:24 [facility] Glucose 103(H) 70 - 100 mg/dL 12/14/2022 17:24 [facility] BUN 15 10 - 26 mg/dL 12/14/2022 17:24 [facility] Creatinine 0.66 0.52 - 1.04 mg/dL 12/14/2022 17:24 [facility] eGFR 111 >60 mL/min/1.7 3m2 12/14/2022 17:24 [facility] Total Protein 7.8 6.3 - 8.2 g/dL 12/14/2022 17:24 [facility] Albumin 4.1 3.4 - 4.9 g/dL 12/14/2022 17:24 [facility] Alkaline Phosphatase 104 38 - 126 U/L 12/14/2022 17:24 [facility] AST 29 15 - 46 U/L 12/14/2022 17:24 [facility] ALT 17 <35 U/L 12/14/2022 17:24 [facility] Bilirubin, Total 0.3 <1.4 mg/dL 12/15/19 17:24 [facility] Calcium 9.3 8.5 - 10.5 mg/dL 12/14/2022 17:24 [facility] Albumin/Globulin Ratio 1.1 1.0 - 2.5 12/14/2022 17:24 [facility] Anion Gap 9 5 - 14 12/14/2022 17:24 [facility] Blood VENOUS BLOOD / Unknown Venipuncture / Unknown 12/14/2022 16:40 EST 12/14/2022 16:41 EST Nicky Brewster MD CHEMISTRY & BLOOD GA S ORDERABLES Performing Organization Address [facility] Co de Phone Number [facility] [address] [place] [address] * (ABNORMAL) HEMOGLOBIN A1C (12/14/2022 16:40 EST) Hemoglobin A1c 7.1(H) <5.7 % 12/14/2022 20:33 EST [facility] Comment: Glycemic Status References: Normal: ??<5.7% Pre-Diabetes: ??5.7% - 6.4% Diagnostic of Diabetes: ??> or = 6.5% (if confirmed) Est Avg Glucose 157 mg/dL 20:33 EST [facility] Comment:The eAG represents t he A1c result expressed as average glucose in mg/dL. Blood VENOUS BLOOD / Unknown Venipuncture / Unknown 12/14/2022 16:40 EST 12/14/2022 16:41 EST Nicky Brewster MD CHEMISTRY & BLOOD GA S ORDERABLES Performing Organization Address City/[facility] Co de Phone Number [facility] [address] [place] [address] * VITAMIN B12 (12/14/2022 16:40 EST) Vitamin B12 234 211 - 911 pg/mL 12/14/2022 18:13 EST [facility] Blood VENOUS BLOOD / Unknown Venipuncture / Unknown 12/14/2022 16:40 EST 12/14/2022 16:41 EST Narrative [facility] - 12/14/2022 18:13 EST The results of this assay can be falsely elevated due to the consumption of Biotin. Nicky Brewster MD CHEMISTRY & BLOOD GA S ORDERABLES [facility] [address] [place] [address] documented in this encounter Visit Diagnoses Diagnosis Type 2 diabetes mellitus without complication, unspecified whether ferry terminal supervisor insulin use ([facility])- Primary Biotin deficiency disease Mineral deficiency, not elsewhere classified documented in this encounter Care Teams Webbing Supervisor Relationship Specialty Start Date End Date Nicky Brewster MD [address] [place] [address] PCP - General 12/24/16 documented as of this encounter
--- OUTSIDE RECORDS SUMMARY | 2024-05-28 10:36 | XMS_ITS | Encounter Summary ---
Author Organization [facility] Address [address] [place] [address] Care Team Providers Care Bicycle Ii Assembler Name Role Phone Nicky Brewster MD Primary Care Provider [phone] Encounter Details Date Type Department Care Team (Late st Contact Info) Description 07/27/2021 Lab Requisition [facility] Pathology & Laboratory Medicine - [facility] [address] [place] [address] Outr Resulting Lab, Provider Social History Tobacco [...] Priority Date/Time Associated Diagnosis Comments ZZCOVID-19 TEST [facility] PCR Today 07/27/2021 0:00 EDT COVID-19 TESTING Routine 07/27/2021 0:00 EDT documented in this encounter Results * COVID-19 TEST [facility] PCR (07/27/2021 0:00 EDT) Swab ENTIRE NASOPHARYNX / Unknown 07/27/2021 07/27/2021 22:25 EDT Provider Outr Resulting Lab MICROBIOLOGY - GENERAL ORDERABLES Performing Organization Address City/[facility]/ZIP Co de Phone Number [facility] [address] [place] [address] * COVID-19 TESTING (07/27/2021 0:00 EDT) COVID-19 rt-PCR Result Negative Negative 07/29/2021 1:36 EDT [facility] Comment: This test has not [...] history, and epidemiological information. Performed on the [employer] Fusion instrument Performing Lab [place] [facility] 07/29/2021 1:36 EDT [facility] Swab 07/27/2021 07/27/2021 22: 25 EDT Provider Outr Resulting Lab MICROBIOLOGY - GENERAL ORDERABLES [facility] [address] [place] [address] documented in this encounter Visit Diagnoses Not on filedocumented in this encounter Additional Health Concerns Infection Onset Date Last Indicated Resolved Time R/O COVID-19 01/03/2022 01/03/2022 01/08/2022 22:1 5 EDT R/O COVID-19 06/20/2023 06/20/2023 06/21/2023 0:18 EDT documented as of this encounter Care Teams Bicycle Ii Assembler Relationship Specialty Start Date End Date Nicky Brewster MD [address] [place] [address] PCP - General 12/24/16 documented as of this encounter
--- OUTSIDE RECORDS SUMMARY | 2024-05-28 10:36 | XMS_ITS | Encounter Summary ---
Author Organization [facility] Address [address] [place] [address] Care Team Providers Care Channel Lip Wetter Name Role Phone Nicky Brewster MD Primary Care Provider [phone] Encounter Details Date Type Department Care Team (Late st Contact Info) Description 09/09/2021 Lab Requisition [facility] [place] [address] [place] [id number] Health, [facility] Employee Contact with and (suspected) exposure to covid-19 Social History Tobacco Use Types Packs/Day Years [...] Priority Date/Time Associated Diagnosis Comments ZZCOVID-19 TEST [facility] PCR Today 09/09/2021 16:24 EST Contact with and (suspected) exposure to covid-19 COVID-19 TESTING Today 09/09/2021 16:2 4 EST Contact with and (suspected) exposure to covid-19 ZZCOVID-19 TESTING ([facility]) Today 09/09/2021 Contact with and (suspected) exposure to covid-19 documented in this encounter Results * COVID-19 TEST [facility] PCR (09/09/2021 16:24 EST) Swab 09/09/2021 16:2 4 EST 09/09/2021 15:12 EST [facility] MICROBIOLOGY - GENERAL ORDERABLES [facility] [address] [place] [id number] * COVID-19 TESTING (09/09/2021 16:24 EST) COVID-19 rt-PCR Result Negative Negative 09/10/2021 16:51 EST [facility] Comment: This test has [...] history, and epidemiological information. Performed on the profect[employer] health researchher Fusion instrument Performing Lab [place] [facility] 09/10/2021 16:51 EST [facility] Swab 09/09/2021 16:2 4 EST 09/09/2021 15:12 EST [facility] MICROBIOLOGY - GENERAL ORDERABLES [facility] [address] [place] [address] * COVID-19 TESTING ([facility], [facility], [facility]) (09/09/2021) Performing Lab [facility] 09/09/2021 15:17 EST [facility] Swab 09/09/2021 09/09/2021 14: 58 EST [facility] Health MICROBIOLOGY - GENERAL ORDERABLES [facility] [address] [place] [address] documented in this encounter Visit Diagnoses Diagnosis Contact with and (suspected) exposure to covid-19 documented in this encounter Additional Health Concerns Infection Onset Date Last Indicated Resolved Time R/O COVID-19 01/03/2022 01/03/2022 01/08/2022 22:1 5 EDT R/O COVID-19 06/20/2023 06/20/2023 06/21/2023 0:18 EDT documented as of this encounter Care Teams Channel Lip Wetter Relationship Specialty Start Date End Date Nicky Brewster MD [address] [place] [address] PCP - General 12/24/16 documented as of this encounter
--- OUTSIDE RECORDS SUMMARY | 2024-05-28 10:36 | XMS_ITS | Encounter Summary ---
Author Organization [facility] Address [address] [place] [address] Care Team Providers Care Guncotton Packer Name Role Phone Nicky Brewster MD Primary Care Provider [phone] Encounter Details Date Type Department Care Team (Latest Contact Info) Description 02/02/2022 Travel Social History Tobacco Use Types Packs/Day [...] on filedocumented in this encounter Care Teams Guncotton Packer Relationship Specialty Start Date End Date Nicky Brewster MD [address] [place] [address] PCP - General 12/24/16 documented as of this encounter
--- OUTSIDE RECORDS SUMMARY | 2024-05-28 10:36 | XMS_ITS | Encounter Summary ---
Author Organization [facility] Address [address] [place] [address] Care Team Providers Care In Home Nanny Name Role Phone Nicky Brewster MD Primary Care Provider [phone] Reason for Visit * Reason Comments Nasal Congestion C/o sinus congestion and smell hallucinations (smoke, weed, celery) alongside stiffness in neck, back. Endorses headache. Encounter Details Date Type Department Care Team (Late st Contact Info) Description 06/20/2023 22:33 EDT - 06/20/2023 23:21 EDT Emergency [facility] Emergency Department [address] [place], [place] [id number] Nelson Mckeon PA-C [address] [place] [address] Sinus pressure (Primary Dx); Nonintractable headache, unspecified chronicity pattern, unspecified headache type Discharge Disposition: Home or Self Care Social [...] Sign Reading Time Taken Comments Blood Pressure 167/55 06/20/20232315 EDT Pulse 110 06/20/20232228 EDT Temperature 36.9 ??C (98.4 ??F) 06/20/20232228 EDT Respiratory Rate 16 06/20/20232228 EDT Oxygen Saturation 96% 06/20/2023 231 EDT Inhaled Oxygen Concentration - - Weight 131.5 kg (290 lb) 06/20/20232228 EDT Height 157.5 cm (5' 2) 06/20/20232228 EDT Body Mass Index 53.04 06/20/20232228 EDT documented in this encounter Functional Status Functional Status Response Date of Assess ment Are you deaf or do you have serious difficulty h earing? No 02/02/2022 documented as of this encounter Discharge Instructions * Discharge Instructions* Nelson Mckeon PA-C - 06/20/2023 23:04 EDT You were seen today for sinus pressure and headache. Your exam is reassuring. Typically a sinusitis presentation ongoing for greater than 2 or 3 weeks will warrant antibiotic therapy. Given that your symptoms started tonight we will wait and see if your symptoms resolved without antibiotics. We recommend Walnut pot treatments if you continue to experience sinus pressure and drainage. * Attachments The following attachments cannot be sent through Care Everywhere. * Headache (Chadian) documented in this encounter Medications at Time [...] BOTH NOSTRILS ONCE A DAY NEEDED 03/18/2023 [employer]UCH DELICA PLUS LANCET 33 gauge misc USE ONE LANCET TWO TIMES A DAY DIRECTED 03/07/2023 [employer] VERIO FLEX METER USE DIRECTED ONCE DAILY TO CHECK BLOOD SUGAR 06/23/2022 [employer] VERIO TEST STRIPS test strips USE ONE [...] 1000 mcg intramuscularly once a month 07/11/2023 diclofenac sodium (VOLTAREN) gel Apply topically 4 times daily. 07/11/2023 ergocalciferol (DRISDOL; VITAMIN D2) 1,250 mcg [...] Means Destination Comment s Home or Self Fdc documented in this encounter ED Notes * Nelson Mckeon PA-C - 06/20/2023 2321 EDT Emergency Department Visit Medical Decision Making This is a well-appearing 43-year-old female in no significant distress presenting with concerns forsinus pressure. She denies any associated symptoms such as fevers, chills, headache, nausea, vomiting, rhinorrhea.. She was encouraged to use Sara pot to help clear her sinuses. She was provided with a work note and ultimately discharged home. Laboratory data was reviewed. Medical Decision Making Nonintractable headache, unspecified chronicity pattern, unspecified headache type: acute illness or injury Sinus pressure: acute illness or injury Final diagnoses: Sinus pressure Nonintractable headache, unspecified chronicity pattern, unspecified headache type Disposition: Discharged Chief complaint: Sinus pressure HPI Cyn Renteria is a 43 y.o. genderqueer/neutral who presents to the ED for concerns of sinus pressure beginning yesterday. She endorses olfactory hallucinations describing smells of smoke, weed and celery. She denies any headaches, fevers, chills, nausea, vomiting. Denies any purulent nasal discharg e. History was provided by: Patient Records reviewed include: Michelle Chapman's note dated 05/01/2023 Patient's pertinent PMH, FH, SH were reviewed and edited as necessary. Nursing notes reviewed. A medical screening exam was performed. Physical Exam BP (!) 167/55 Pulse (!) 110 Temp 36.9 ??C (98.4 ??F) Resp 16 Ht 157.5 cm (62) Wt (!) 131.5 kg (290 lb) SpO2 96% BMI 53.04 kg/m?? Physical Exam Vitals and nursing note reviewed. Constitutional: General: Cyn Renteria is not in acute distress. Appearance: Normal appearance. Cyn Renteria is not ill-appearing. HENT: Head: Normocephalic and atraumatic. Right Ear: Tympanic membrane normal. Left Ear: Tympanic membrane normal. Nose: Nose normal. Mouth/Throat: Mouth: Mucous membranes are moist. Pharynx: No posterior oropharyngeal erythema. Eyes: General: Right eye: No discharge. Left eye: No discharge. Extraocular Movements: Extraocular movements intact. Pupils: Pupils are equal, round, and reactive to light. Cardiovascular: Rate and Rhythm: Normal rate. Pulses: Normal pulses. Pulmonary: Effort: Pulmonary effort is normal. No respiratory distress. Musculoskeletal: General: No swelling or deformity. Normal range of motion. Cervical back: Normal range of motion and neck supple. Skin: General: Skin is warm and dry. Neurological: General: No focal deficit present. Mental Status: Cyn Renteria is alert and oriented to person, place, and time. Mental status is atbaseline. Psychiatric: Mood and Affect: Mood normal. Behavior: Behavior normal. Procedures Procedures documented in this encounter Plan of Treatment Not on file documented as of this encounter Procedures Procedure Name Priority Date/Time Associated Diagnosis Comments ZZCOVID-19 [facility] (TESTING ONLY) STAT 06/20/2023 23:14 EDT COVID-19 TESTING STAT 06/20/2023 23:1 4 EDT ZZHN INFLUENZA A AND B, RSV PCR STAT 06/20/2023 23:14 EDT documented in this encounter Results * COVID-19 [facility] (TESTING ONLY) (06/20/2023 23:14 EDT) Swab NASOPHARYNGEAL STRUCTURE / Unknown Swab / Unknown 06/20/2023 23:14 EDT 06/20/2023 23:32 EDT Nelson Mckeon PA-C MICROBIOLOGY - GENER AL ORDERABLES Performing Organization Address City/State/[facility] Co de Phone Number [facility] [address] [place] [phone] * COVID-19 TESTING (06/20/2023 23:14 EDT) COVID-19 rt-PCR Result Negative Negative 06/21/2023 0:18 EDT [facility] Performing Lab Cepheid GeneXpert [facility] 06/21/2023 0:18 EDT [facility] Swab NASOPHARYNGEAL STRUCTURE / Unknown Swab / Unknown 06/20/2023 23:14 EDT 06/20/2023 23:32 EDT Nelson Mckeon PA-C MICROBIOLOGY - GENER AL ORDERABLES Performing Organization Address City/[facility] Co de Phone Number [facility] [address] [place] [address] * INFLUENZA A AND B,RSV PCR (06/20/2023 23:14 EDT) FLU A RNA Result (FLARES) Negative Negative 06/21/2023 0:18 EDT [facility] FLU B RNA Result (FLBRES) Negative Negative 06/21/2023 0:18 EDT [facility] RSV RNA Result (RSVRES) Negative Negative 06/21/2023 0:18 EDT [facility] Swab NASOPHARYNGEAL STRUCTURE / Unknown Swab / Unknown 06/20/2023 23:14 EDT 06/20/2023 23:32 EDT Nelson Mckeon PA-C MICROBIOLOGY - GENER AL ORDERABLES Performing Organization Address City/[facility] [place] [place] [address] documented in this encounter Visit Diagnoses Diagnosis Sinus pressure- Primary Other diseases of nasal cavity and sinuses Nonintractable headache, unspecified chronicity pattern, unspecified headache type documented in this encounter Additional Health Concerns Infection Onset Date Last Indicated Resolved Time R/O COVID-19 06/20/2023 06/20/2023 06/21/2023 0:18 EDT documented as of this encounter Care Teams In Home Nanny Relationship Specialty Start Date End Date Nicky Brewster MD [address] [place] [id number] PCP - General 12/24/16 documented as of this encounter
--- OUTSIDE RECORDS SUMMARY | 2024-05-28 10:36 | XMS_ITS | Encounter Summary ---
Author Organization [facility] Address [address] [place] [address] Care Team Providers Care Ear Mold Laboratory Technician Name Role Phone Nicky Brewster MD Primary Care Provider [phone] Reason for Visit * Reason Comments Headache Patient has been hav ing episodes of left sided burning headache with rainbows in the center of vision field; onset was while at work this morning. Dry heaving on arrival. Remote hx of migraines in her 20's. Denies head injury. Encounter Details Date Type Department Care Team (Late st Contact Info) Description 09/13/2021 10:04 EST - 09/13/2021 14:20 [facility] Emergency [facility] Emergency Department [address] [place] [address] Bibi Barger MD [address] [facility], Level [address] [place] [address] Migraine with aura and without status migrainosus, not intractable (Primary Dx) Discharge Disposition: Home or Self [...] 10:03 EST documented as of this encounter Last Filed Vital Signs Vital Sign Reading Time Taken Comments Blood Pressure 138/80 09/13/2021 1140 EST Pulse 96 09/13/2021 1140 EST Temperature 36.4 ??C (97.6 ??F) 09/13/2021 1002 EST Respiratory Rate 14 09/13/2021 1140 EST Oxygen Saturation 96% 09/13/2021 1140 EST Inhaled Oxygen Concentration - - Weight 129.3 kg (285 lb) 09/13/2021 1002 EST Height - - Body Mass Index - - documented in this encounter Functional Status Functional Status Response Date of Assess ment Are you deaf or do you have serious difficulty h earing? No 09/13/2021 documented as of this encounter Discharge Instructions * Discharge Instructions* Bibi Barger MD - 09/13/2021 14:06 EST It appears that she likely had a migraine. You were given IV fluids, metoclopramide, Benadryl, magnesium, dexamethasone, Tylenol here in the emergency department. You had a head CT performed given that you have not had a migraine for [address] did not show any signs of bleeding. As you are being discharged after receiving Benadryl and are not considered awake enough to drive please go to the sleep room to which you are being given the michael. Do not drive until you feel 100% awake. Return to the emergency department if you have severe onset of headache particularly if is accompanied by vomiting, if you develop a fever, neck stiffness, if you pass out, or if you have any other symptoms that are concerning to you. * Attachments The following attachments cannot be sent through Care Everywhere. * Migraine Headache (American) documented in this encounter Medications at Time [...] mg tablet 1-2 tabs orally BID 07/11/20 23 triamcinolone (KENALOG) 0.1 % cream 10/17/2018 07/11/2023 documented as of this encounter Discharge Disposition Disposition Code Departure Means Destination Comment s Home or Self Mcc Pt to go to sleep room, to wait for medication to wear off. Provided michael documented in this encounter ED Notes * Oralia Hernandes RN - 09/13/2021 1356 EST Pt provided a sandwich and drink * Omar Vásquez - 09/13/2021 1328 EST 12 Lead EKG Performed by Omar Vásquez and shown to Bibi Barger MD. * Bibi Barger MD - 09/13/2021 1023 EST Mode of Arrival:Walk-in Primary Care Provider: Nicky Brewster This patient received an evaluation and medical screening exam for emergent medical conditions at the [facility] on 09/13/2021 Chief Complaint headadche HPI Rafia Ferrera is a 41 y.o. female with PMH including remote migraines, seasonal allergies, IBS whopresents to the ED for headache. Pt was feeling well this morning when she went to work other than a mild nausea. 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 She was interacting with the patient when she did feel that she had color changes in her visual gottleib. She then felt diffuse onset of headachewhich has improved slightly since arrival in the emergency department. She denies any vomiting but has nausea. She denies any significant vision changes other than the changes to the color or appearance. She feels that people are talking to her but she cannot quite comprehend what she is hearing. She denies any weakness numbness or tingling in any extremity. She says she has not had any migrainesin over 20 years. At that point when she had symptoms she would come to the emergency department for Imitrex but she is not on any migraine medication any longer. Patient denies any recent illness such as fever, cough, shortness of breath. She does say that she has had some rhinorrhea which makes her think her seasonal allergies are coming. She denies any abdominal pain, back pain, dysuria, diarrhea, constipation. History was provided by: Patient Patient's pertinent PMH, FH, SH were reviewed and updated PRN. ROS A 10 point review of systems has been performed and is otherwise negative except as noted in the HPI. Physical Exam Vital Signs Temp: 36.4 ??C (97.6 ??F) Temp src: Temporal Pulse: 96 Heart Rate: 103 BPM Resp: 14 SpO2: 96 % BP: 138/80 BP Device: BP Machine BP Patient Position: Sitting BP Cuff Location: Left arm O2 Device: None (Room air) Nursing notes and vital signs were reviewed. Constitutional: Lying on the bed looking quite uncomfortable with eyes closed. Eyes: Pupils equal and reactive to light, no scleral icterus Mouth: Moist oral mucosa without apparent lesions Neck: Full ROM, no cervical LAD Heart: Strong peripheral pulses, no lower extremity edema. Lungs: No Respiratory distress, symmetrical chest expansion. Abdomen: Soft, nontender, nondistended Skin: No overt rashes, bruising, or lesions on exposed skin Extremities: Moving all 4 extremities spontaneously, warm and well perfused. Neuro: Grossly neurologically intact with normal speech Psych: No agitation or overt thought disorder Laboratory Results Labs Reviewed - No data to display Data Interpretation No labs Imaging Results CT HEAD WO CONTRAST (Final result) Result time 09/13/21 12:35:25 Final result Impression: No acute intracranial abnormality. Narrative: CT HEAD WO CONTRAST Signs and Symptoms/Comments: sudden onset headache 1 hour ago; Headache, intracranial hemorrhage suspected Comparison: CT on 04/23/2021. Technique: Noncontrast CT head was performed with multiplanar reformations. FINDINGS: Brain: No intra- or extra-axial hemorrhage, fluid collection or mass is present. There is no mass effect or midline shift. The basal cisterns are patent. The ventricles are unremarkable. Rocha-white differentiation is preserved. There is no CT evidence of acute infarct, although MR is more sensitive. Orbits: Unremarkable. Paranasal sinuses: Minimal scattered paranasal sinus mucosal thickening. Middle ear cavities & Mastoid air cells: No effusion visible. Bones: Hyperostosis frontalis incidentally noted. No acute bone findings. Extracranial soft tissues: Unremarkable. Procedures Procedures None Medical Decision Making Rafia Ferrera is a 41 y.o. female who presents to the ED for headache. Most likely this is a migraine given remote hx but since she has not had one for approx 20 Years and is unclear about whether the headache is worse right the beginning that it is now. Will get head CT to rule out subarachnoid hemorrhage. Given that the onset of the headache was within the last [address] scan if negativefor bleed should be sufficient. Will treat with multiple medications including magnesium, metoclopramide, Benadryl, Ofirmev, steroids. Will hold off on Toradol until head CT resulted. ED Course A medical screening was performed. Relevant Data as of Sep 13 2049 Tue Sep 13, 2021 1315 Patient feeling significantly better with eyes closed when she opens her eyes she still havingvisual scotomata. Head CT negative. Ordered Toradol with patient says that she has significant allergic reaction to NSAIDs and has been told not to take any. Will give a dose of Haldol and will checkEKG for QTC. [ES] 1401 Pt feeling better from headache perspective but feeling jittery from the medication. Will givebenadryl. She is eating. 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 She is responsible and says she understands that she cannot drive until she is feeling 100% awake. Patient ambulating safely. [ES] Relevant Data User Index [ES] Bibi Barger MD While under my care in the Emergency Department, the patient's pain was managed to an adequate level weighing risk vs. benefit of medication. Prior to discharge usual and customary precautions were reviewed with the patient and/or family including follow-up instructions and reasons to return to the Emergency Department if condition worsens, does not improve as expected, or other new concerns arise. Clinical Impression Final diagnoses: Migraine with aura and without status migrainosus, not intractable Disposition Discharged The patient's pain was managed to an adequate level weighing risk vs. benefit of further medications. Any further pain treatment will be at the discretion of the provider following up with the patient based on their clinical assessment. documented in this encounter Plan of Treatment Not on file documented as of this encounter Procedures Procedure Name Priority Date/Time Associated Diagnosis Comments ECG REPORT - SCANNED 09/14/2021 1:08 EST EKG 12-LEAD STAT 09/13/2021 13:[address] HEAD WO CONTRAST STAT 09/13/2021 1 2:18 EST documented in this encounter Results * ECG REPORT - SCANNED (09/14/2021 1:08 EST) 09/14/2021 1:08 EST Scan 2 Cloth Measurer PROCEDURE/MINOR STEVE GICAL ORDERABLES * EKG 12-LEAD (09/13/2021 13:27 EST) 09/13/2021 13:2 7 EST [facility] - 09/14/2021 1:03 EST ? [facility] ? Test Date: ?2021-09-13 Pat Name: ? RAFIA FERRERA ? Department: ? Room: ? A04 Gender: ? Female ? 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 EJC : ?1980 ? Requested By: DARIN TELLES Order Number: [id number] ? Reading MD: ?? HAZEL RO MD ? Measurements Intervals ?[place] ? Rate: ? 98 ? P: ?25 CO: ? 142 ?QRS: ?-1 QRSD: ? 88 ? T: ?4 QT: ? 374 ? QTc: ?477 ? Interpretive Statements Normal sinus rhythm Compared to ECG 01/14/2021 14:10:49 Sinus tachycardia no longer present T-wave abnormality no longer present I reviewed the tracing and have either agreed or edited the findings in this report. Electronically Signed On 09-14-2021 1:03:15 EST by HAZEL RO MD. 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 Electronically Signed On 09-14-2021 1:03:15 EST by HAZEL PRO. Bibi Barger MD CARDIAC ECG ORDERA [facility] * [place] HEAD WO CONTRAST (09/13/2021 12:18 EST) Anatomical Region Laterality Modality Head Computed Tomogra phy 09/13/2021 12:3 5 EST Impressions 09/13/2021 12:35 EST No acute intracranial abnormality. Narrative 09/13/2021 12:[address] HEAD WO CONTRAST ?? Signs and Symptoms/Comments: ??sudden onset headache 1 hour ago; Headache, intracranial hemorrhage suspected Comparison: CT on 04/23/2021. Technique: Noncontrast CT head was performed with multiplanar reformations. FINDINGS: Brain: No intra- or extra-axial hemorrhage, fluid collection or mass is present. There is no mass effect or midline shift. The basal cisterns are patent. The ventricles are unremarkable. Rocha-white differentiation is preserved. There is no CT evidence of acute infarct, although MR is more sensitive. Orbits: Unremarkable. Paranasal sinuses: Minimal scattered paranasal sinus mucosal thickening. Middle ear cavities & Mastoid air cells: No effusion visible. Bones: Hyperostosis frontalis incidentally noted. No acute bone findings. Extracranial soft tissues: Unremarkable. Procedure Note Keegan Farmer MD - 09/13/2021 CT HEAD WO CONTRAST Signs and Symptoms/Comments: sudden onset headache 1 hour ago; Headache,intracranial hemorrhage suspected Comparison: CT on 04/23/2021. Technique: Noncontrast CT head was performed with multiplanarreformations. FINDINGS: Brain: No intra- or extra-axial hemorrhage, fluid collection or mass ispresent. There is no mass effect or midline shift. The basal cisterns arepatent. The ventricles are unremarkable. Rocha-white differentiation ispreserved. There is no CT evidence of acute infarct, although MR is moresensitive. Orbits: Unremarkable. Paranasal sinuses: Minimal scattered paranasal sinus mucosal thickening. Middle ear cavities & Mastoid air cells: No effusion visible. Bones: Hyperostosis frontalis incidentally noted. No acute bonefindings. Extracranial soft tissues: Unremarkable. IMPRESSION No acute intracranial abnormality. Bibi Barger MD IMG CT ORDERABLES documented in this encounter Visit Diagnoses Diagnosis Migraine with aura and without status migrainosus, not intractable- Primary Migraine with aura, without mention of intractable migraine without mention of status migrainosus documented in this encounter Administered Medications Inactive Administered Medications - up to 3 most recent administrations Medication Order MAR Action Action Date Dose Rate Site acetaminophen (OFIRMEV) IV solution 1,000 mg 1,000 mg, intravenous, NOW X1, 1 dose, On e 09/13/21 at 1045, STAT Given 09/13/2021 10:48 EST 1,000 mg dexAMETHasone (DECADRON) injection 10 mg 10 mg, intravenous, EVERY 6 HOURS, First dose on Sun09/13/21 at 1200, Until Discontinued, Routine Given 09/13/2021 10:50 EST 10 mg IV diphenhydrAMINE (BENADRYL) injection 25 mg 25 mg, intravenous, NOW X1, 1 dose, On Sun09/13/21 at 1045, STAT Given 09/13/2021 10:48 EST 25 mg diphenhydrAMINE (BENADRYL) injection 25 mg 25 mg, intravenous, NOW X1, 1 dose, On Sun09/13/21 at 1430, STAT haloperidol lactate (HALDOL) injection 5 mg 5 mg, intravenous, NOW X1, 1 dose, On Sun09/13/21 at 1330, STAT Given 09/13/2021 13:32 EST 5 mg lactated ringers BOLUS 500 mL 500 mL, intravenous, NOW X1, 1 dose, On Sun09/13/21 at 1345, STAT Given 09/13/2021 13:32 EST 500 mL magnesium sulfate 2 g in water 50 mL 2 g, intravenous, Administer over 30 Minutes, NOW X1, 1 dose, On Sun09/13/21 at 1045, STAT New Bag 09/13/2021 11:38 EST 2 g metoclopramide (REGLAN) injection 10 mg 10 mg, intravenous, EVERY 6 HOURS, First dose on Sun09/13/21 at 1200, Until Discontinued, Routine Given 09/13/2021 10:48 EST 10 mg documented in this encounter Active and Recently Administered Medications Times are shown in EST. Scheduled Medication Order 09/11/2021 09/12/2021 09/13/2021 acetaminophen (OFIRMEV) IV solution 1,000 mg (COMPLETED) 1,000 mg, intravenous, NOW X1, 1 dose, On Sun09/13/21 at 1045, STAT 1048 (Given - Provid er: Oralia Hernandes RN)1103 (Completed - Provider: Oralia Hernandes RN) dexAMETHasone (DECADRON) injection 10 mg 10 mg, intravenous, EVERY 6 HOURS, First dose on Sun09/13/21 at 1200, Until Discontinued, Routine 1050 (Given - Provid er: Oralia Hernandes RN) diphenhydrAMINE (BENADRYL) injection 25 mg (COMPLETED) 25 mg, intravenous, NOW X1, 1 dose, On Sun09/13/21 at 1045, STAT 1048 (Given - Provid er: Oralia Hernandes RN) diphenhydrAMINE (BENADRYL) injection 25 mg 25 mg, intravenous, NOW X1, 1 dose, On Sun09/13/21 at 1430, STAT 1410 (Not Given - Pr ovider: Oralia Hernandes RN - Reason: Patient/family refused) haloperidol lactate (HALDOL) injection 5 mg (COMPLETED) 5 mg, intravenous, NOW X1, 1 dose, On Sun09/13/21 at 1330, STAT 1332 (Given - Provid er: Oralia Hernandes RN) ketOROLAC (TORADOL) injection 15 mg 15 mg, intravenous, NOW X1, 1 dose, On Sun09/13/21 at 1315, STAT 1319 (Not Given - Pr ovider: Oralia Hernandes RN - Reason: Other - Comment: possible allergy) lactated ringers BOLUS 500 mL (COMPLETED) 500 mL, intravenous, NOW X1, 1 dose, On Sun09/13/21 at 1345, STAT 1332 (Given - Provid er: Omar Vásquez)1419 (Completed - Provider: Oralia Hernandes RN) magnesium sulfate 2 g in water 50 mL (COMPLETED) 2 g, intravenous, Administer over 30 Minutes, NOW X1, 1 dose, On Sun09/13/21 at 1045, STAT 1138 (New Bag - Prov ider: Oralia Hernandes RN)1210 (Completed - Provider: Oralia Hernandes RN) metoclopramide (REGLAN) injection 10 mg 10 mg, intravenous, EVERY 6 HOURS, First dose on Sun09/13/21 at 1200, Until Discontinued, Routine 1048 (Given - Provid er: Oralia Hernandes RN) documented in this encounter Orders Medications Ordered That Terry ht Not Have Been Administered Count Last Ordered Date First Ordered Date diphenhydrAMINE (BENADRYL) injection 25 mg 1 09/13/2021 ketOROLAC (TORADOL) injection 15 mg 1 09/13 documented in this encounter Care Teams Ear Mold Laboratory Technician Relationship Specialty Start Date End Date Nicky Brewster MD [address] [place] [address] PCP - General 12/24/16 documented as of this encounter
--- OUTSIDE RECORDS SUMMARY | 2024-05-28 10:36 | XMS_ITS | Encounter Summary ---
Author Organization [facility] Address [address] [place] [address] Care Team Providers Care Intellectual Property Lawyer Name Role Phone Nicky Brewster MD Primary Care Provider [phone] Encounter Details Date Type Department Care Team (Late st Contact Info) Description 08/03/2021 Lab Requisition [facility] Pathology & Laboratory Medicine - [facility] [address] [place] [address] Outr Resulting Lab, Provider Social History Tobacco [...] Comments ZZCOVID-19 TEST [facility] PCR Today 08/03/2021 0:00 EDT COVID-19 TESTING Routine 08/03/2021 0:00 EDT documented in this encounter Results * COVID-19 TEST [facility] PCR (08/03/2021 0:00 EDT) Swab ENTIRE NASOPHARYNX / Unknown 08/03/2021 08/03/2021 21:34 EDT Provider Outr Resulting Lab MICROBIOLOGY - GENERAL ORDERABLES Performing Organization Address City/[facility]/ZIP Co de Phone Number [facility] [address] [place] [address] * COVID-19 TESTING (08/03/2021 0:00 EDT) COVID-19 rt-PCR Result Negative Negative 08/04/2021 1:48 EDT [facility] Comment: This test has [...] history, and epidemiological information. Performed on the Sleepy'sher Fusion instrument Performing Lab [place] [facility] 08/04/2021 1:48 EDT [facility] Swab 08/03/2021 08/03/2021 21: 34 EDT Provider Outr Resulting Lab MICROBIOLOGY - GENERAL ORDERABLES [facility] [address] [place] [address] documented in this encounter Visit Diagnoses Not on filedocumented in this encounter Additional Health Concerns Infection Onset Date Last Indicated Resolved Time R/O COVID-19 01/03/2022 01/03/2022 01/08/2022 22:1 5 EDT R/O COVID-19 06/20/2023 06/20/2023 06/21/2023 0:18 EDT documented as of this encounter Care Teams Intellectual Property Lawyer Relationship Specialty Start Date End Date Nicky Brewster MD [address] [place] [address] PCP - General 12/24/16 documented as of this encounter
--- OUTSIDE RECORDS SUMMARY | 2024-05-28 10:36 | XMS_ITS | Encounter Summary ---
Author Organization [facility] Address [address] [place] [address] Care Team Providers Care Supervisor Agency Appointments Name Role Phone Nicky Brewster MD Primary Care Provider [phone] Encounter Details Date Type Department Care Team (Latest Contact Info) Description 06/20/2023 Travel Social History Tobacco Use Types Packs/Day [...] documented as of this encounter Care Teams Supervisor Agency Appointments Relationship Specialty Start Date End Date Nicky Brewster MD NPI: [id number] [place] [id number] PCP - General 12/24/16 documented as of this encounter
--- OUTSIDE RECORDS SUMMARY | 2024-05-28 10:36 | XMS_ITS | Encounter Summary ---
Author Organization [facility] Address [address] [place] [address] Care Team Providers Care Research Group Director Name Role Phone Nicky Brewster MD Primary Care Provider [phone] Reason for Visit * Reason Comments Abdominal Pain Sudden sharp abd myriam n where her hernia is periumbilical with cramping. Encounter Details Date Type Department Care Team (Late st Contact Info) Description 02/02/2022 16:47 EDT - 02/02/2022 18:36 EDT Emergency [facility] Emergency Department [address] [place] [address] Navin Raymundo MD Left sided abdominal pain (Primary Dx) Discharge Disposition: Home or Self [...] 16:42 EDT documented as of this encounter Last Filed Vital Signs Vital Sign Reading Time Taken Comments Blood Pressure 162/85 02/02/2022 1701 EDT Pulse 107 02/02/2022 1701 EDT Temperature 36.4 ??C (97.5 ??F) 02/02/2022 1644 EDT Respiratory Rate 20 02/02/2022 1701 EDT Oxygen Saturation 96% 02/02/2022 1819 EDT Inhaled Oxygen Concentration - - Weight - - Height - - Body Mass Index - - documented in this encounter Functional Status Functional Status Response Date of Assess ment Are you deaf or do you have serious difficulty h earing? No 02/02/2022 documented as of this encounter Discharge Instructions * Discharge Instructions* Navin Raymundo MD - 02/02/2022 18:23 EDT Home to rest tonight. Follow-up with your primary care provider as needed. Return here if worse. documented in this encounter Medications at Time [...] Code Departure Means Destination Home or Self [facility] documented in this encounter ED Notes * Monica Collado - 02/02/2022 1707 EDT Blood drawn via saline lock per protocol, purple and yellow tube(s) sent to lab per order. * Navin Raymundo MD - 02/02/20221702 EDT Emergency Department Visit Assessment and ED Course Patient with known ventral/periumbilical hernia presenting with acute onset of sharp severe periumbilical and left-sided abdominal pain. Very uncomfortable on initial presentation. Exam limited by body habitus, but appeared to show a mass with associated tenderness in the left side of the abdomen. She declined offer of analgesia, said she wants to breathe through it. Noncontrast CT showed a fat-containing ventral hernia, no left-sided hernia, no bowel containing hernia, no evidence of obstruction. Patient's discomfort gradually improved on its own without further intervention. Discharged home. She indicates understanding of return precautions. Final diagnoses: Left sided abdominal pain Disposition: Discharged Chief complaint: Left-sided abdominal pain HPI Cyn Rentreia is a 41 y.o. female who presents to the ED for left-sided abdominal pain. Previously healthy patient who presents with acute onset of severe periumbilical and left-sided abdominal discomfort. Patient says that she had a bowel movement, noticed that her stool was pale, as it was following her cholecystectomy. Not long thereafter she had onset of severe pain in the periumbilical and left side of her abdomen radiating toward her anus. Denies feeling nauseated currently, sa ys she has had pain from a periumbilical hernia in the past, but not like this. No chest pain or dyspnea. History was provided by: Patient patient's pertinent PMH, FH, SH were reviewed and edited as necessary. ROS A focused review of systems was performed. Pertinent positives and negatives as noted in HPI. Physical Exam BP (!) 162/85 Pulse (!) 107 Temp 36.4 ??C (97.5 ??F) (Tympanic) Resp 20 SpO2 96% A medical screening exam was performed. Physical Exam Vitals and nursing note reviewed. Constitutional: General: She is not in acute distress. Appearance: She is well-developed and well-nourished. Comments: Obese, very uncomfortable appearing woman HENT: Nose: Nose normal. Mouth/Throat: Mouth: Mucous membranes are moist. Pharynx: Oropharynx is clear. Eyes: Extraocular Movements: EOM normal. Conjunctiva/sclera: Conjunctivae normal. Pupils: Pupils are equal, round, and reactive to light. Cardiovascular: Rate and Rhythm: Normal rate and regular rhythm. Heart sounds: Normal heart sounds. Pulmonary: Effort: Pulmonary effort is normal. Breath sounds: Normal breath sounds. Abdominal: Palpations: Abdomen is soft. Tenderness: There is abdominal tenderness. Comments: Abdomen obese, soft. There is an area of focal tenderness on the left side of the abdomenslightly superior to the level of the umbilicus where I can appreciate a bulge that may represent ahernia. It is quite tender to palpation, she is unable to tolerate persistent manual pressure to attempt reduction. Musculoskeletal: General: Normal range of motion. Cervical back: Normal range of motion and neck supple. Skin: General: Skin is warm and dry. Neurological: Mental Status: She is alert and oriented to person, place, and time. Cranial Nerves: No cranial nerve deficit. Psychiatric: Mood and Affect: Mood and affect normal. Imaging obtained was reviewed and independently interpreted. Noncontrast CT abdomen pelvis shows: Laboratory results independently reviewed. FINDINGS: Liver: No hepatic masses on noncontrast imaging. Hepatomegaly 24 cm. The liver is mildly fatty. Gallbladder and bile ducts: Cholecystectomy. No significant biliary dilation or radiopaque stones in the biliary tree. Pancreas: No gross pathology in the pancreas on noncontrast imaging. Spleen: No splenomegaly or focal lesions. Adrenal glands: Benign incidental 15 mm left adrenal adenoma which is similar to previous imaging, previously partially visualized. Normal right adrenal gland. Kidneys and ureters: No nephrolithiasis or collecting system obstruction. Stomach and bowel: No gross pathology in the small bowel on noncontrast imaging. No colitis or diverticular disease. Appendix: No evidence of appendicitis. ?? Intraperitoneal space: No free air. No significant fluid collection. Arteries: Unremarkable. No abdominal aortic aneurysm. Lymph nodes: No significantly enlarged lymph nodes. Urinary bladder: Unremarkable as visualized. Reproductive: IUD in the uterus in the expected position. Benign-appearing dominant follicle in the left ovary. Normal CT appearance of the right adnexa. 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 No acute fracture or subluxation. Soft tissues: Small fat-containing umbilical hernia. Large supraumbilical ventral hernia containing fat without inflammatory changes. ?? IMPRESSION 1. No acute findings on noncontrast imaging. 2. Incidental findings include fatty liver, hepatomegaly, cholecystectomy, IUD in the uterus, ventral hernias containing fat. Procedures Procedures documented in this encounter Plan of Treatment Not on file documented as of this encounter Procedures Procedure Name Priority Date/Time Associated Diagnosis Comments CT ABDOMEN PELVIS WO CONTRAST STAT 02/02/2022 17:27 EDT COMPLETE BLOOD COUNT AND DIFFERENTIAL STAT 02/02/2022 17:07 EDT COMPREHENSIVE METABOLIC PANEL (CMP) STAT 02/02/2022 17:07 EDT documented in this encounter Results * CT ABDOMEN PELVIS WO CONTRAST (02/02/2022 17:27 EDT) Anatomical Region Laterality Modality Body, Abdomen, Pelvis, Abdomen and Pelvis Computed Tomography 02/02/2022 17:2 1 EDT Impressions 02/02/2022 17:57 EDT 1. No acute findings on noncontrast imaging. 2. Incidental findings include fatty liver, hepatomegaly, cholecystectomy, IUD in the uterus, ventral hernias containing fat. THIS DOCUMENT HAS BEEN ELECTRONICALLY SIGNED BY QUINCY GRIFFIN MD FOR ANY QUESTIONS OR CONCERNS REGARDING THIS REPORT PLEASE CALL [facility] AT [phone] [facility] 02/02/2022 17:57 EDT PROCEDURE INFORMATION: Exam: CT Abdomen And Pelvis Without Contrast Exam date and time: 02/02/2022 17:21 Age: 41 years old Clinical indication: Abdominal pain; Prior surgery; Surgery date: 6+ months; Surgery type: x 2 and mildred; Additional info: Left side abdominal pain, question hernia TECHNIQUE: Imaging protocol: Computed tomography of the abdomen and pelvis without contrast. Radiation optimization: All CT scans at this facility use at least one of these dose optimization techniques: automated exposure control; mA and/or kV adjustment per patient size (includes targeted exams where dose is matched to clinical indication); or iterative reconstruction. COMPARISON: CT CHEST WITHOUT CONTRAST 04/23/2021 15:50 FINDINGS: Liver: No hepatic masses on noncontrast imaging. Hepatomegaly 24 cm. The liver is mildly fatty. Gallbladder and bile ducts: Cholecystectomy. No significant biliary dilation or radiopaque stones in the biliary tree. Pancreas: No gross pathology in the pancreas on noncontrast imaging. Spleen: No splenomegaly or focal lesions. Adrenal glands: Benign incidental 15 mm left adrenal adenoma which is similar to previous imaging, previously partially visualized. Normal right adrenal gland. Kidneys and ureters: No nephrolithiasis or collecting system obstruction. Stomach and bowel: No gross pathology in the small bowel on noncontrast imaging. No colitis or diverticular disease. Appendix: No evidence of appendicitis. Intraperitoneal space: No free air. No significant fluid collection. Arteries: Unremarkable. No abdominal aortic aneurysm. Lymph nodes: No significantly enlarged lymph nodes. Urinary bladder: Unremarkable as visualized. Reproductive: IUD in the uterus in the expected position. Benign-appearing dominant follicle in the left ovary. Normal CT appearance of the right adnexa. 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 No acute fracture or subluxation. Soft tissues: Small fat-containing umbilical hernia. Large supraumbilical ventral hernia containing fat without inflammatory changes. Procedure Note Quincy Griffin MD - 02/02/2022 PROCEDURE INFORMATION: Exam: CT Abdomen And Pelvis Without Contrast Exam date and time: 02/02/2022 17:21 Age: 41 years old Clinical indication: Abdominal pain; Prior surgery; Surgery date: 6+ months; Surgery type: x 2 and mildred; Additional info: Left side abdominal pain, question hernia TECHNIQUE: Imaging protocol: Computed tomography of the abdomen and pelvis without contrast. Radiation optimization: All CT scans at this facility use at least one of these dose optimization techniques: automated exposure control; mA and/or kV adjustment per patient size (includes targeted exams where dose is matched to clinical indication); or iterative reconstruction. COMPARISON: CT CHEST WITHOUT CONTRAST 04/23/2021 15:50 FINDINGS: Liver: No hepatic masses on noncontrast imaging. Hepatomegaly 24 cm. The liver is mildly fatty. Gallbladder and bile ducts: Cholecystectomy. No significant biliary dilation or radiopaque stones in the biliary tree. Pancreas: No gross pathology in the pancreas on noncontrast imaging. Spleen: No splenomegaly or focal lesions. Adrenal glands: Benign incidental 15 mm left adrenal adenoma which is similar to previous imaging, previously partially visualized. Normal right adrenal gland. Kidneys and ureters: No nephrolithiasis or collecting system obstruction. Stomach and bowel: No gross pathology in the small bowel on noncontrast imaging. No colitis or diverticular disease. Appendix: No evidence of appendicitis. Intraperitoneal space: No free air. No significant fluid collection. Arteries: Unremarkable. No abdominal aortic aneurysm. Lymph nodes: No significantly enlarged lymph nodes. Urinary bladder: Unremarkable as visualized. Reproductive: IUD in the uterus in the expected position. Benign-appearing dominant follicle in the left ovary. Normal CT appearance of the right adnexa. 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 No acute fracture or subluxation. Soft tissues: Small fat-containing umbilical hernia. Large supraumbilical ventral hernia containing fat without inflammatory changes. IMPRESSION 1. No acute findings on noncontrast imaging. 2. Incidental findings include fatty liver, hepatomegaly, cholecystectomy, IUD in the uterus, ventral hernias containing fat. THIS DOCUMENT HAS BEEN ELECTRONICALLY SIGNED BY QUINCY GRIFFIN MD FOR ANY QUESTIONS OR CONCERNS REGARDING THIS REPORT PLEASE CALL [facility] [phone] Navin Raymundo MD [facility] ORDERABLES * (ABNORMAL) COMPREHENSIVE METABOLIC PANEL (CMP) (02/02/2022 17:07 EDT) Sodium 139 136 - 145 mmol/L 02/02/2022 17:33 [facility] Potassium 4.2 3.5 - 5.0 mmol/L 02/02/2022 17:33 [facility] Chloride 104 96 - 110 mmol/L 02/02/2022 17:33 [facility] CO2 Total 23 22 - 32 mmol/L 02/02/2022 17:33 [facility] Glucose 211(H) 70 - 100 mg/dL 02/02/2022 17:33 [facility] BUN 15 10 - 26 mg/dL 02/02/2022 17:33 [facility] Creatinine 0.50(L) 0.52 - 1.04 mg/dL 02/02/2022 17:33 [facility] eGFR 119 >60 mL/min/1.7 3m2 02/02/2022 17:33 [facility] Total Protein 7.7 6.3 - 8.2 g/dL 02/02/2022 17:33 [facility] Albumin 4.1 3.4 - 4.9 g/dL 02/02/2022 17:33 [facility] Alkaline Phosphatase 112 38 - 126 U/L 02/02/2022 17:33 [facility] AST 22 15 - 46 U/L 02/02/2022 17:33 [facility] ALT 17 <35 U/L 02/02/2022 17:33 [facility] Bilirubin, Total <0.2 <1.4 mg/dL 02/03/20 17:33 [facility] Calcium 9.1 8.5 - 10.5 mg/dL 02/02/2022 17:33 [facility] Albumin/Globulin Ratio 1.1 1.0 - 2.5 02/02/2022 17:33 [facility] Anion Gap 12 5 - 14 02/02/2022 17:33 [facility] Blood VENOUS BLOOD / Unknown Venipuncture / Unknown 02/02/2022 17:07 EDT 02/02/2022 17:09 EDT Navin Raymundo MD CHEMISTRY & BLOOD GA S ORDERABLES [facility] [address] [place] [address] * (ABNORMAL) COMPLETE BLOOD COUNT AND DIFFERENTIAL (02/02/2022 17:07 EDT) WBC 12.94(H) 4.00 - 12.40 K/cmm 02/02/2022 17:12 [facility] RBC 4.59 3.86 - 5.04 M/cmm 02/02/2022 17:12 [facility] Hemoglobin 13.1 11.6 - 15.2 gm/dL 02/02/2022 17:12 [facility] HCT 40.1 34.9 - 44.4 % 02/02/2022 17:12 [facility] MCV 87 81 - 98 fl 02/02/2022 17:12 [facility] MCH 28.5 26.7 - 33.3 pg 02/02/2022 17:12 [facility] MCHC 32.7 32.1 - 35.9 gm/dL 02/02/2022 17:12 [facility] RDW-CV 14.3 <14.7 % 02/02/2022 17:12 [facility] RDW-SD 45.6 <50.4 fl 02/02/2022 17:12 [facility] PLT 325 141 - 377 K/cmm 02/02/2022 17:12 [facility] MPV 8.8(L) 9.5 - 12.7 fl 02/02/2022 17:12 [facility] % Neutrophils 66.1 % 02/02/2022 17:12 [facility] % Lymphocytes 26.1 % 02/02/2022 17:12 [facility] % Monocytes 5.7 % 02/02/2022 17:12 [facility] % Eosinophils 1.4 % 02/02/2022 17:12 [facility] % Basophils 0.3 % 02/02/2022 17:12 [facility] % Immature Grans 0.4 % 02/03/20 17:12 [facility] Absolute Neutrophils 8.55 2.20 - 8.85 K/cmm 02/02/2022 17:12 [facility] Absolute Lymphocytes 3.38(H) 1.09 - 3.30 K/cmm 02/02/2022 17:12 [facility] Absolute Monocytes 0.74 0.10 - 0.80 K/cmm 02/02/2022 17:12 [facility] Absolute Eosinophils 0.18 0.03 - 0.61 K/cmm 02/02/2022 17:12 [facility] ABS Basophils 0.04 0.01 - 0.11 K/cmm 02/02/2022 17:12 [facility] Absolute Immature Grans 0.05 0.00 - 0.06 K/cmm 02/02/2022 17:12 [facility] Type of Differential: Auto 02/02/2022 17:12 [facility] Blood VENOUS BLOOD / Unknown Venipuncture / Unknown 02/02/2022 17:07 EDT 02/02/2022 17:09 EDT Navin Raymundo MD PACKAGES & DNA PROBE ORDERABLES Performing Organization Address City/State/[facility] Co de Phone Number [facility] [address] [place] [address] documented in this encounter Visit Diagnoses Diagnosis Left sided abdominal pain- Primary Abdominal pain, unspecified site documented in this encounter Care Teams Research Group Director Relationship Specialty Start Date End Date Nicky Brewster MD [address] [place] [id number] PCP - General 12/24/16 documented as of this encounter
--- OUTSIDE RECORDS SUMMARY | 2024-05-28 10:36 | XMS_ITS | Encounter Summary ---
Author Organization [facility] Address [address] [place] [address] Care Team Providers Care Credit Union Field Examiner Name Role Phone Nicky Brewster MD Primary Care Provider [phone] Reason for Visit * Reason Comments Nasal Congestion Nausea Generalized Body Aches Encounter Details Date Type Department Care Team (Late st Contact Info) Description 05/24/2021 14:30 EDT Office Visit [facility] [address] [place], [place] [id number] Carla Bee PA-C [address] [place] [phone] Nasal congestion (Primary Dx) Social History Tobacco Use Types [...] Sign Reading Time Taken Comments Blood Pressure 126/72 05/24/2021 1504 EDT Pulse 100 05/24/2021 1504 EDT Temperature 37.1 ??C (98.7 ??F) 05/24/2021 1504 EDT Respiratory Rate 16 05/24/2021 1504 EDT Oxygen Saturation 97% 05/24/2021 1504 EDT Inhaled Oxygen Concentration - - Weight - - Height - - Body Mass Index - - documented in this encounter Patient Instructions * Patient Instructions* Carla Bee PA-C - 05/24/2021 14:30 EDT Home to rest. You should self isolate pending the results of the covid-19 test. Follow-up with employee health for return to work instructions. Increase fluids. Take tylenol as directed for headache and fever. Follow-up with your PCP. Seek immediate treatment in the ED for worsening symptoms. documented in this encounter Progress Notes * Yury Arreguin RN - 05/24/2021 1430 EDT LMTCB 05/24/21 14:41 YURY ARREGUIN RN CC/HPI: Pt reports headache, nausea, muscle cramping/stiffness, congestion, sore throat, change in smell. 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 Covid Screening: In the last 72 hours, has the patient had: New or unusual cough, shortness of breath, new nasal congestion, sore throat, fever, chills, body aches, or new loss of taste or smell without a reasonable alternative diagnosis*? (If yes, assign patient to ARC schedule) YES In the past 14 days, has the patient had a confirmed close Covid exposure (<6ft for > 15mins in 24hr period)? YES In the past 14 days, has the patient returned from international travel? NO Is the patient fully Covid vaccinated? (If close exposure or international travel but fully vaccinated, remains NRC. If close exposure or international travel and unvaccinated, assign to ARC) 1 of 2 vaccine doses. 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 Denies cough. No chest pain or shortness of breath. No fever or chills. 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 Reportsthat she was wearing full PPE at the time. I have reviewed current problem list, current medications and allergies ROS: SEE HPI Review of Systems Constitutional: Negative for chills and fever. Objective: Examination: Vitals: BP 126/72 (BP Cuff Location: Right arm, BP Patient Position: Sitting) Pulse 100 Temp 37.1 ??C (98.7 ??F) (Oral) Resp 16 SpO2 97% Physical Exam Vitals and nursing note reviewed. Constitutional: General: She is not in acute distress. Appearance: She is not ill-appearing or toxic-appearing. HENT: Head: Normocephalic and atraumatic. Right Ear: Tympanic membrane, ear canal and external ear normal. Left Ear: Tympanic membrane, ear canal and external ear normal. Nose: Congestion present. Mouth/Throat: Mouth: Mucous membranes are moist. Pharynx: No oropharyngeal exudate or posterior oropharyngeal erythema. Comments: Uvula midline. Tonsils absent. No trismus. Eyes: Conjunctiva/sclera: Conjunctivae normal. Pupils: Pupils are equal, round, and reactive to light. Cardiovascular: Rate and Rhythm: Normal rate and regular rhythm. Pulses: Normal pulses. Heart sounds: Normal heart sounds. Pulmonary: Breath sounds: Normal breath sounds. Musculoskeletal: Cervical back: Normal range of motion and neck supple. Skin: General: Skin is warm and dry. Neurological: General: No focal deficit present. Mental Status: She is alert and oriented to person, place, and time. Procedures Assessment & Plan: 1. 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 Symptoms are consistent with a viral illness. Covid-19 test is ordered and the patientwill self isolate pending the results. PCP follow-up advised. ED precautions discussed. Referred [facility] for return to work instructions. - COVID-19 TESTING See patient instructions. Questions and concerns were answered. Patient expressed understanding of plan. documented in this encounter Plan of Treatment Not on file documented as of this encounter Procedures Procedure Name Priority Date/Time Associated Diagnosis Comments COVID-19 TESTING Routine 05/24/2021 15:1 1 EDT Nasal congestion documented in this encounter Results * COVID-19 TESTING (05/24/2021 15:11 EDT) COVID-19 rt-PCR Result Not Detected 05/24/2021 19:38 EDT [facility] Comment: This assay is designed [...] terminated or revoked sooner. Performed on the [employer] GeneXpert Instrument at [facility] [id number] Swab BOTH ANTERIOR NARES / Unknown 05/24/2021 15:11 EDT 05/24/2021 18:30 EDT Carla Bee PA-C MICROBIOLOGY - GENERAL ORDERABLES Performing Organization Address City/State/[facility] Co de Phone Number [facility] [address] [place] [id number] documented in this encounter Visit Diagnoses Diagnosis Nasal congestion- Primary Other diseases of nasal cavity and sinuses documented in this encounter Historical Medications * This list may reflect changes made after this encounter. Medication Sig Dispensed Refills Start Date End Date DULoxetine (CYMBALTA) 30 mg delayed release capsule TAKE ONE CAPSULE BY MOUTH EVERY DAY INCREASE TO TWO TIMES A DAY IN 2 WEEKS 08/27/2020 added in this encounter Care Teams [employer] Field Examiner Relationship Specialty Start Date End Date Nicky Brewster MD [address] [place] [id number] PCP - General 12/24/16 documented as of this encounter
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
--- OUTSIDE RECORDS SUMMARY | 2024-05-28 10:36 | XMS_ITS | Encounter Summary ---
Author Organization [facility] Address [address] [place] [address] Care Team Providers Care Farm Service Adviser Name Role Phone Nicky Brewster MD Primary Care Provider [phone] Encounter Details Date Type Department Care Team (Late st Contact Info) Description 07/20/2021 Results Only [facility] Lab - Main [address] [address] Unknown, Provider, Social History Tobacco Use Types [...] Date/Time Associated Diagnosis Comments COVID-19 TESTING Routine 07/20/2021 17:0 0 EDT documented in this encounter Results * COVID-19 TESTING (07/20/2021 17:00 EDT) COVID-19 rt-PCR Result Not Detected 07/20/2021 18:55 EDT [facility] Comment: This assay is designed [...] terminated or revoked sooner. Performed on the Pro[employer] GeneXpert Instrument at [facility] [address] 07/20/2021 17:0 0 EDT 07/20/2021 17:03 EDT Provider Unknown MICROBIOLOGY - GENER AL ORDERABLES Performing Organization Address City/State/[facility] Co de Phone Number [facility] [address] [place] [address] documented in this encounter Visit Diagnoses Not on filedocumented in this encounter Care Teams Farm Service Adviser Relationship Specialty Start Date End Date Nicky Brewster MD [address] [place] [address] PCP - General 12/24/16 documented as of this encounter
--- OUTSIDE RECORDS SUMMARY | 2024-05-28 10:37 | XMS_ITS | Encounter Summary ---
Author Organization [facility] Address [address] [place] [address] Care Team Providers Care Admissions Director Name Role Phone Unavailable Primary Care Provider Unavailabl e Encounter Details Date Type Department Care Team (Late st Contact Info) Description 06/27/2005 Results Only [facility] [address] [place] [address] [place] [address] Social History Tobacco Use Types Packs/Day Years Used Date Smoking Tobacco: Never Assessed Sex and Gender Information Value Date Recorded Sex Assigned at Not on file Gender Identity Genderqueer/Neutral 03/05/2023 1 4:56 EDT Sexual Orientation Something else 03/05/2023 14 :56 EDT documented as of this encounter Plan of Treatment Not on file documented as of this encounter Procedures Procedure Name Priority Date/Time Associated Diagnosis Comments CYTOPATHOLOGY Routine 06/27/2005 0:00 EDT documented in this encounter Results * CYTOPATHOLOGY (06/27/2005 0:00 EDT) Pathology Report: CYTOPATHOLOGY REPORT Reports generated via electronic interface contain original data; however they are lacking the format of the original report. Caution should be taken when reading/interpreti ng unformatted reports. Name: ? CYN VAZQUEZ ? Accession #: ? [id number] : ? 1980 (Age: 25) ??F ?Collect Date: ? 06/27/2005 Location: ? [facility] ? Receive Date: ? 06/29/2005 Provider: ?MADELYN HITCHCOCK CNM Copy to: ? Specimen/Source: ?ThinPrep Pap Test, Cervix/Endocervix, processed on eXelate ThinPrep Imaging System, with manual evaluation Last Menstrual Period: ? 04/13/05 Menstrual/Pregnanc y Status: ? Other: ? HPVA - HPV testing requested if ASC-US on the current ThinPrep Pap test. ? SPECIMEN ADEQUACY ? Satisfactory for Evaluation - transformation zone component present GENERAL CATEGORIZATION ? Negative for Intraepithelial Lesion or Malignancy ? Document reviewed and electronically signed by: ? PRINCESS Antonio(ASCP) ? Report Date: ??07/06/2005 11:51 End of Report BRUNA MARTINEZ 06/27/2005 06/29/2005 Madelyn Hitchcock CNM PATHOLOGY ORDERABLES BRUNA MARTINEZ [address] [place] [address] documented in this encounter Visit Diagnoses Not on filedocumented in this encounter
--- OUTSIDE RECORDS SUMMARY | 2024-05-28 10:37 | XMS_ITS | Encounter Summary ---
Author Organization [facility] Address [address] [place] [address] Care Team Providers Care Tank Car Mechanic Name Role Phone Unavailable Primary Care Provider Unavailabl e Encounter Details Date Type Department Care Team (Late st Contact Info) Description 02/10/2004 Results Only [facility] - [place] [facility] [address] [place] [address] Pretty Rose, [facility] [address] [place] [address] Social History Tobacco Use Types Packs/Day Years [...] Priority Date/Time Associated Diagnosis Comments CYTOPATHOLOGY Routine 02/10/2004 0:00 EDT documented in this encounter Results * CYTOPATHOLOGY (02/10/2004 0:00 EDT) Pathology Report: CYTOPATHOLOGY REPORT Reports generated via electronic interface contain original data; however they are lacking the format of the original report. Caution should be taken when reading/interpreti ng unformatted reports. Name: ? CYN VAZQUEZ ? Accession #: ? [id number] : ? 1980 (Age: 23) ??F ?Collect Date: ? 02/10/2004 Location: ? [facility] ? Receive Date: ? 02/12/2004 Provider: ?PRETTY ROSE DIRECTOR CHEMISTRY Copy to: ? Specimen/Source: ?ThinPrep Pap Test, Cervix/Endocervix Last Menstrual Period: ? Hormonal/Contracep tive Status: ? Depo-Provera Other: ? HPVA - HPV testing requested if ASC-US on the current ThinPrep Pap test. ? SPECIMEN ADEQUACY ? Satisfactory for Evaluation - transformation zone component present GENERAL CATEGORIZATION ? Negative for Intraepithelial Lesion or Malignancy ? Document reviewed and electronically signed by: ? PRINCESS Grady(ASCP) ? Report Date: ??02/17/2004 09:03 End of Report BRUNA MARTINEZ 02/10/2004 02/12/2004 Pretty Rose DIRECTOR CHEMISTRY PATHOLOGY ORDERABLES BRUNA MARTINEZ [address] [place] [address] documented in this encounter Visit Diagnoses Not on filedocumented in this encounter
--- OUTSIDE RECORDS SUMMARY | 2024-05-28 10:37 | XMS_ITS | Encounter Summary ---
Author Organization [facility] Address [facility] [place] [address] Care Team Providers Care Tool And Die Maker Apprentice Name Role Phone Nicky Brewster MD Primary Care Provider [phone] Encounter Details Date Type Department Care Team (Late st Contact Info) Description 01/25/2024 Orders Only [place] [address] Jazmín Zarate, [facility] [place] [address] Social History Tobacco Use Types Packs/Day Years Used Date Smoking Tobacco: Never Smokeless Tobacco: Never Alcohol Use Standard Drinks/Week Comments No 0 (1 standard drink = 0.6 oz pur e alcohol) Sex and Gender Information Value Date Recorded Sex Assigned at Not on file Gender Identity Not on file Sexual Orientation Not on file documented as of this encounter Plan of Treatment Not on file documented as of this encounter Procedures Procedure Name Priority Date/Time Associated Diagnosis Comments MUMPS ANTIBODY, IGG Routine 01/25/2024 3 :06 PM EDT documented in this encounter Results * Mumps Antibody, IgG (01/25/2024 3:06 PM EDT) Mumps Antibody IgG Positive Positive [facility] Comment: A positive result for this assay is considered to be an indicator of positive immune status. Blood Venous Draw / Unknown 01/25/2024 3:06 PM EDT 01/28/2024 11:35 AM EDT Narrative Resulting Agency Comment Spec In Lab Jazmínmikala Zarate [facility] [place] [address] documented in this encounter Visit Diagnoses Not on filedocumented in this encounter Care Teams Tool And Die Maker Apprentice Relationship Specialty Start Date End Date Nicky Brewster MD [address] [place] [address] PCP - General Family Medicine 07/25/16 documented as of this encounter
--- OUTSIDE RECORDS SUMMARY | 2024-05-28 10:37 | XMS_ITS | Encounter Summary ---
Author Organization [facility] [place] [address] Care Team Providers Care Hand Mica Plate Layer Name Role Phone Nicky Brewster MD Primary Care Provider [phone] Encounter Details Date Type Department Care Team (Late st Contact Info) Description 03/18/2024 Orders Only [place] [address] Jazmín Zarate, [facility] [place] [address] Social History Tobacco Use Types Packs/Day Years [...] Procedure Name Priority Date/Time Associated Diagnosis Comments HEPATITIS B SURFACE ANTIBODY Routine 03/18/2024 5:33 PM EDT documented in this encounter Results * Hepatitis B Surface Antibody (03/18/2024 5:33 PM EDT) Hepatitis B Surface Antibody, Quantitative 91.4 IU/L [facility] Comment: HepB Surface Ab Quant: Unvaccinated: < 8.5 IU/L Vaccinated: >= 11.5 IU/L Hepatitis B Surface Antibody Positive [facility] Comment: Patient is considered to be immune to HBV infection. Expected Results: Vaccinated: Positive Unvaccinated: Negative Blood Venous Draw / Unknown 03/18/2024 5:33 PM EDT 03/18/2024 5:42 PM EDT Narrative Resulting Agency Comment Spec In Lab Jazmín aZrate APRN CHEMISTRY ORDERABLES [facility] [place] [id number] documented in this encounter Visit Diagnoses Not on filedocumented in this encounter Care Teams Hand Mica Plate Layer Relationship Specialty Start Date End Date Nicky Brewster MD [address] [place] [address] PCP - General Family Medicine 07/25/16 documented as of this encounter
--- OUTSIDE RECORDS SUMMARY | 2024-05-28 10:37 | XMS_ITS | Encounter Summary ---
Author Organization [facility] Address [address] [place] [address] Care Team Providers Care Sluice Tender Name Role Phone Alia Lee NP Primary Care Provider Encounter Details Date Type Department Care Team (Late st Contact Info) Description 10/12/2015 Results Only [facility] [phone] Nicky Butler MD [address] [place] [address] Social History Tobacco Use Types Packs/Day Years [...] Procedure Name Priority Date/Time Associated Diagnosis Comments SURGICAL PATHOLOGY Routine 10/12/2015 8:37 EST documented in this encounter Results * SURGICAL PATHOLOGY (10/12/2015 8:37 EST) Pathology Report: SURGICAL PATHOLOGY REPORT Reports generated via electronic interface contain original data; however they are lacking the format of the original report. Caution should be taken when reading/interpreting unformatted reports. Name: ? CYN FERRERA ? Accession #: ? [id number] ? : ? 1980 (Age: 35) ??F ? Collect Date: ? 10/12/2015 ? Location: ? [facility] ? Receive Date: ? 10/13/2015 ? Provider: NICKY BUTLER MD Copy to: ? 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 ??See comment. Comment: The biopsy shows features of leukocytoclastic vasculitis (LCV) involving the small vessels of the reticular dermis. ??(Dr. Beck)/orquidea Microscopic Description: Sections consist of a punch biopsy of skin to the deep reticular dermis. ??The epidermis and stratum corneum are unremarkable. ??Within the reticular dermis, there is a perivascular and interstitial inflammatory infiltrate. ??The infiltrate is of moderate density and consists primarily of intact neutrophils with smaller numbers of lymphomononuclear cells. ??Rare eosinophils are noted. There is a small amount of neutrophilic nuclear debris. ??Many of the vessels are altered and some show fibrinoid mural necrosis. ??There is erythrocyte extravasation. ??(Dr. Beck)/sarita Document reviewed and electronically signed by: KYLE BECK MD Report ??Date: 10/14/2015 13:19 By the signature above, the attending physician certifies that he/she has personally conducted a gross and/or microscopic examination of the described specimens and rendered or confirmed the above diagnosis. Specimen(s) Received: 3.0 mm punch bx of newer lesion on LLE Clinical History: 5 days of progressive LE rash, flat, red, 0.5 to 1.5 cm essentially non-pruritic lesions, ? drug reaction (Ivermectin) vs autoimmune or atrophic reaction Gross Description: ? Received in formalin labelled with proper patient identification (initials M, A) and LLE is a punch biopsy of pink-willoughby skin (0.3 cm in diameter and 0.2 cm in thickness). ??The specimen is submitted intact in 1. Isaac Queen 10/13/2015 9:45 AM End of Report [facility] 10/12/2015 8:37 EST 10/13/2015 8:37 EST Nicky Butler MD PATHOLOGY ORDERABLES [facility] [address] [place] [address] documented in this encounter Visit Diagnoses Not on filedocumented in this encounter Care Teams Sluice Tender Relationship Specialty Start Date End Date Alia Lee NP [address] [place] [id number] PCP - General 09/22/13 12/23/16 documented as of this encounter
--- OUTSIDE RECORDS SUMMARY | 2024-05-28 10:37 | XMS_ITS | Encounter Summary ---
Author Organization [facility] Address [address] [place] [address] Care Team Providers Care Fish Processing Supervisor Name Role Phone Alia Lee NP Primary Care Provider Encounter Details Date Type Department Care Team (Latest Contact Info) Description 10/12/2015 10:10 EST - 10/12/2015 10:13 EST Hospital Encounter [facility] - [address] [address] Unknown, Provider, Discharge Disposition: Home or Self Care Social [...] tab(s) orally once a day 03/07/2010 07/11/2023 documented as of this encounter Discharge Disposition Disposition Code Departure Means Destination Home or Self Care documented in this encounter Plan of Treatment Not on file documented as of this encounter Visit Diagnoses Not on filedocumented in this encounter Care Teams Fish Processing Supervisor Relationship Specialty Start Date End Date Alia Lee, LICENSED CLINICAL SOCIAL WORKER [address] [facility] [address] [place] [address] PCP - General 09/22/13 12/23/16 documented as of this encounter
--- OUTSIDE RECORDS SUMMARY | 2024-05-28 10:37 | XMS_ITS | Encounter Summary ---
Author Organization [facility] Address [address] [place] [address] Care Team Providers Care Master Cook Name Role Phone Alia Lee NP Primary Care Provider Encounter Details Date Type Department Care Team (Latest Contact Info) Description 12/21/2016 12:07 EST - 12/21/2016 23:59 EST Hospital Encounter [facility] [address] [place] [address] Sergio Davila, DO [address] [facility] [address] [place] [address] Unknown, Provider, Discharge Disposition: Home or Self [...] Code Departure Means Destination Home or Self Residential documented in this encounter Plan of Treatment Not on file documented as of this encounter Visit Diagnoses Not on filedocumented in this encounter Care Teams Master Cook Relationship Specialty Start Date End Date Alia Lee NP [address] [place] [address] PCP - General 09/22/13 12/23/16 documented as of this encounter
--- OUTSIDE RECORDS SUMMARY | 2024-05-28 10:37 | XMS_ITS | Encounter Summary ---
[place] [address] Care Team Providers Care Bookie Name Role Phone Nicky Brewster MD Primary Care Provider [phone] Encounter Details Date Type Department Care Team (Latest Contact Info) Description 02/05/2024 Travel Social History Tobacco Use Types Packs/Day [...] on filedocumented in this encounter Care Teams Bookie Relationship Specialty Start Date End Date Nicky Brewster MD [address] [place] [address] PCP - General Family Medicine 07/25/16 documented as of this encounter
--- OUTSIDE RECORDS SUMMARY | 2024-05-28 10:37 | XMS_ITS | Encounter Summary ---
[place] [address] Care Team Providers Care Grinding Wheel Operator Name Role Phone Nicky Brewster MD Primary Care Provider [phone] Reason for Visit * Reason Comments Skin Check Encounter Details Date Type Department Care Team (Late st Contact Info) Description 04/16/2017 4:15 PM EDT Office Visit Dermatology at [address] [phone] Royal Isbell MD [address] [place] [address], [facility] A DERMATOLOGY [place], [place] [id number] Hidradenitis suppurativa; Acne vulgaris; Hirsutism Social History Tobacco Use Types Packs/Day Years Used Date Smoking Tobacco: Never Smokeless Tobacco: Never Alcohol Use Standard Drinks/Week Comments No 0 (1 standard drink = 0.6 oz pur e alcohol) Sex and Gender Information Value Date Recorded Sex Assigned at Not on file Gender Identity Not on file Sexual Orientation Not on file documented as of this encounter Progress Notes * Royal Isbell MD - 04/16/2017 4:15 PM EDT PROBLEM: Follow up hidradenitis suppurativa. Cyn follows up and continues to have individual cyst typically in the groin area now. In the past she has had them under both breasts, in the axillary vaults. She recently had [address] Davila but unfortunately then she developed another site about an inch distal to that. I had recommended a course of Bactrim and she took that for a month. She has also been using clindamycin solution for her face and clindamycin cream for the groin area both on an almost daily basis. Patient is seen in consultation today for Nicky Brewster MD. Physical examination reveals a pleasant 36-year-old woman who has a single draining small cystic lesion on the left inguinal fold area. She has no other active areas of involvement. She does have hirsutism of her chin and mild adult acne vulgaris of her jaw line. She has type V Elizalde pigmentation. A/P: 1. Hidradenitis suppurativa limited to groin area. a. Recommend that we maximize topical therapies. Explained that we cannot treat after the fact but must treat in a preventative way if we are going to rein in her hidradenitis. b. Recommend that we begin using benzoyl peroxide 2.5% water-based gel applying in the morning, and clindamycin 1% cream in the evening to the groin areas that are prone to these cysts. c. Would not recommend oral therapies at this time or any further surgery. If topicals are ineffectual could consider combination course of rifampin/oral clindamycin, but we will determine that at the time of her return visit in 2 months. 2. Hidradenitis/adult acne. a. Recommend spironolactone 100 mg 1 p.o. q.a.m. for a month and 1 p.o. b.i.d. thereafter, #60 dispensed with 2 refills. Reassess in 2 months. CC: Nicky Brewster MD documented in this encounter Plan of Treatment Not on file documented as of this encounter Visit Diagnoses Diagnosis Hidradenitis suppurativa Hidradenitis Acne vulgaris Other acne Hirsutism documented in this encounter Care Teams Grinding Wheel Operator Relationship Specialty Start Date End Date Nicky Brewster MD [address] [place] [address] PCP - General Family Medicine 07/25/16 documented as of this encounter
--- OUTSIDE RECORDS SUMMARY | 2024-05-28 10:37 | XMS_ITS | Encounter Summary ---
[place] [address] Care Team Providers Care Volcanology Teacher Name Role Phone Nicky Brewster MD Primary Care Provider [phone] Encounter Details Date Type Department Care Team ([facility] st Contact Info) Description 07/02/2019 Telephone [place] [phone] Chen Campbell Social History Tobacco Use Types Packs/Day Years Used Date Smoking Tobacco: Never Smokeless Tobacco: Never Alcohol Use Standard Drinks/Week Comments No 0 (1 standard drink = 0.6 oz pur e alcohol) Sex and Gender Information Value Date Recorded Sex Assigned at Not on file Gender Identity Not on file Sexual Orientation Not on file documented as of this encounter Miscellaneous Notes * Telephone Encounter - Chen Campbell - 07/02/2019 4:52 PM EDT Reviewed pt's metal sensitivity w/ Dr. Barrera- called pt, canceled Aguirre study, pt will review w/ RMDif should have an Imp study or if just wants HREM, reviewed w/ pt if Imp- scheduling into Oct rightw and RMD would need to send over new referral, if not and just HREM plz call back to move up if not coordinated w/ Aguirre or Imp have sooner visits. * Telephone Encounter - Chen Campbell - 07/02/2019 9:48 AM EDT ESOPHAGEAL MANOMETRY CLINICAL SAFETY CHECKLIST 07/02/2019 Chen [address] [facility] [address] [id number] : 1980 REFERRING PROVIDER: DENI WHITE V PRIMARY CARE PROVIDER: Nicky Brewster MD PRIMARY SYMPTOM (PROCEDURE INDICATION): other: dysphagia, ? reflux, ? dysmotility SAFETY QUESTIONS HISTORY OF TRANSSPHENOIDAL OR PITUITARY SURGERY? no IF YES, please inform the patient that the test cannot be scheduled due to safety concerns about testing, and the patient should speak with their provider to consider alternative testing. The client solutions director should also contact the provider's office directly to notify them that we are unable to schedule due to a contraindication to testing. Then, delete the remainder of this checklist and close out thereferral. HISTORY OF NASAL SURGERY IN THE LAST SIX MONTHS? no IF YES: PT CANNOT BE SCHEDULED DUE TO SAFETY CONCERNS until we receive documented clearance by their ENT provider. Then, delete the remainder of this checklist and close out the referral. QUESTIONS FOR THE PATIENT DIABETIC? no Diabetic patients should speak with their PCP or managing provider at least two weeks before the test to ask what medication or insulin adjustments are needed for testing. If the patient feels ill while fasting due to diabetes, it is OK to have a little apple juice - just enough to feel better. Patients fast 8 hours before testing and the test lasts 1 hour. ALLERGIC TO LIDOCAINE, BENZOCAINE? no (OK to schedule procedure but please document type of allergy if present) BLOOD THINNERS SUCH PLAVIX, COUMADIN, PRADAXA? no (pt does not have to stop any blood thinners for this procedure) DOES THE PATIENT USE A WHEELCHAIR? no VERBAL PATIENT INSTRUCTIONS The written instructions are very important for the patient to review and contain specific dietary and medication instructions prior to testing. These instructions will give the patient the most accurate test result. The patient should speak with their referring provider or our office if they have any questions. APPOINTMENT NOTES TEMPLATE HREM, symptom: other: dysphagia, ? reflux, ? dysmotility, RMD: LESLIE WHITE V, PCP: Nicky Brewster MD, wheelchair: No, blood thinners: No, allergy to lidocaine/benzocaine/novocaine: No (At exit, the RMD for appointment notes is the GI provider who saw the patient) AGUIRRE CLINICAL SAFETY CHECKLIST 07/02/2019 Chen [address]eria [address] [facility] [address] [id number] : 1980 REFERRING PROVIDER: DENI WHITE V PRIMARY CARE PROVIDER: Nicky Brewster MD PRIMARY SYMPTOM (PROCEDURE INDICATION): other: dysphagia, ? reflux, ? dysmotility SAFETY QUESTIONS PACEMAKER/DEFIBRILLATOR? no NEUROSTIMULATOR? no ESOPHAGEAL VARICES? no SENSITIVITY OR ALLERGY TO NICKEL? Unsure- pt has trouble w/ jewelry skin turning green and rashy BLOOD THINNERS SUCH PLAVIX, COUMADIN, PRADAXA, ELIQUIS, XARELTO, PLAVIX? no IF YES TO ANY OF THE ABOVE PRE-PROCEDURE QUESTIONS, please inform the patient that the test cannot be scheduled due to safety concerns about testing, and the patient should speak with their provider to consider alternative testing. The client solutions director should also contact the provider's office directly tonotify them that we are unable to schedule due to a contraindication to testing. Then, delete the remainder of this checklist and close out the referral. QUESTIONS TO THE PROVIDER PLEASE READ THE RESPONSES! DOES THE PROVIDER REQUEST AN EGD/AGUIRRE? Provider did not request an EGD: Does the patient have a moderate or large hiatal hernia, or a 3cm or larger hiatal hernia? Provider says no: In the last 12 months, has an esophageal manometry been performed at [facility]? No: schedule an esophageal manometry followed by Lab [facility]re. Please inform the patient this is part of the test. A new referral is not needed. 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 no Diabetic patients should speak with their PCP or managing provider at least two weeks before the test to ask what medication or insulin adjustments are needed for testing. If the patient feels ill while fasting due to diabetes, it is OK to have a little apple juice - just enough to feel better. Patients fast 8 hours before testing and the test lasts 1 hour. DOES THE PATIENT USE A WHEELCHAIR? no VERBAL PATIENT INSTRUCTIONS FOR off-PPI STUDY The written instructions are very important for the patient to review and contain specific dietary and medication instructions prior to testing. These instructions will give the patient the most accurate test result. The patient should speak with their referring provider or our office if they have any questions. For this test, it is important that the patient hold proton pump inhibitors (PPIs) for seven days before testing, but it is OK to use H2-blockers (zantac, ranitidine) up to 24 hours before testing. APPOINTMENT NOTES TEMPLATE LAB-BASED AGUIRRE (default) LAB Aguirre off PPI, symptom: other: dysphagia, ? reflux, ? dysmotility, RMD: DENI WHITE V, PCP: Nicky Brewster MD, wheelchair: No (At exit, the RMD for appointment notes is the GI provider who saw the patient) documented in this encounter Plan of Treatment Not on file documented as of this encounter Visit Diagnoses Not on filedocumented in this encounter Care Teams Volcanology Teacher Relationship Specialty Start Date End Date Nicky Brewster MD [address] [place] [address] PCP - General Family Medicine 07/25/16 documented as of this encounter
--- OUTSIDE RECORDS SUMMARY | 2024-05-28 10:37 | XMS_ITS | Encounter Summary ---
Author Organization [facility] Address [facility] [place] [address] Care Team Providers Care Installation Service Representative Name Role Phone Nicky Brewster MD Primary Care Provider [phone] Encounter Details Date Type Department Care Team ([facility] st Contact Info) Description 01/25/2024 Orders [place] [address] Jazmín Zarate, [facility] [place] [address] Social History Tobacco Use Types Packs/Day Years [...] Procedure Name Priority Date/Time Associated Diagnosis Comments VARICELLA ZOSTER ANTIBODY, IGG Routine 01/25/2024 3:06 PM EDT documented in this encounter Results * Varicella zoster Antibody, IgG (01/25/2024 3:06 PM EDT) Varicella Zoster Antibody IgG Positive Positive [facility] Comment: A positive result for this assay is considered to be an indicator of positive immune status. Blood Venous Draw / Unknown 01/25/2024 3:06 PM EDT 01/28/2024 11:35 AM EDT Narrative Resulting Agency Comment Spec In Lab Jazmínmikala Zarate MAINTAINABILITY ENGINEER [place] [address] documented in this encounter Visit Diagnoses Not on filedocumented in this encounter Care Teams Installation Service Representative Relationship Specialty Start Date End Date Nicky Brewster MD [address] [place] [address] PCP - General Family Medicine 07/25/16 documented as of this encounter
--- OUTSIDE RECORDS SUMMARY | 2024-05-28 10:37 | XMS_ITS | Encounter Summary ---
[place] [address] Care Team Providers Care Tape Coater Name Role Phone Nicky Brewster MD Primary Care Provider [phone] Reason for Visit * Reason Comments Follow-up Skin Check Encounter Details Date Type Department Care Team (Late st Contact Info) Description 08/16/2018 4:45 PM EDT Office Visit Dermatology at [address] [phone] Royal Isbell MD [address] [place] [address], [place] [address] Hidradenitis suppurativa; Acne vulgaris; Hirsutism Social History [...] Progress Notes * Royal Isbell MD - 08/16/2018 4:45 PM EDT Problem: 1. Follow-up hidradenitis suppurativa 2. Adult acne vulgaris 3. History of inflammatory bowel disease Cyn follows up and things have been stable doing quite well on both his prolactin her milligrams1 p.o. daily and topical applications of clindamycin and benzyl peroxide once a day each also. She applies benzyl peroxide in the morning, the clindamycin 1% cream in the evening. She recently had a small papule pustule in the right inguinal fold but that is healed up now she states. She wonders what she can do about unwanted facial hair. She is bothered by a dilated pore in the upper back. She wonders about thinning hair of her scalp. Physical examination reveals a female pattern alopecia with central parietal scalp thinning. She has from her body habitus hyperandrogenism (despite her spironolactone), and has some unwanted facial hair on her chin. She has dilated pore of [place] on the upper central back. She has a number of smallmilia on her face. Assessment and plan: Unwanted facial hair/hirsutism 1. Discussed discussed the option of electrolysis, waxing, use of nare like product, plucking etc. 2. Discussed the etiology, her hyperandrogenism that is triggering this. She has a Mirena IUD in place and so is not having her menstrual cycles. 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 Discussed etiology, hyperandrogenism 2. Reassured her that her spironolactone is not the cause of this Adult acne vulgaris 1. Patient is tolerating and benefiting from the 100 mg a day of spironolactone. We will continue this will provide her #90 for a 3-month supply with 3 refills. Hidradenitis suppurativa 1. Continue applications of benzyl peroxide every morning clindamycin was sent cream q. p.m. Apply these to the areas that are prone to cyst formation., Namely the groin. Her one area of difficulty was in the left inguinal fold area in the past Dilated pore of [place] 1. Today site was biopsied and removed with a 4 mm punch. 2. Closed with 4-0 Ethilon sutures, suture removal in 10-14 days at her work at the [employer] 3. Wound care check supplies given. Warned about the inevitability of some mild scarring at site. Patient accepts this 4. Will notify patient by results when these are available. CC: Nicky Cowan MD documented in this encounter Plan of Treatment Not on file documented as of this encounter Visit Diagnoses Diagnosis Hidradenitis suppurativa Hidradenitis Acne vulgaris Other acne Hirsutism documented in this encounter Care Teams Tape Coater Relationship Specialty Start Date End Date Nicky Brewster MD [address] [place] [address] PCP - General Family Medicine 07/25/16 documented as of this encounter
--- OUTSIDE RECORDS SUMMARY | 2024-05-28 10:37 | XMS_ITS | Encounter Summary ---
Author Organization [facility] Address [address] [place] [address] Care Team Providers Care Can Capper Name Role Phone Unavailable Primary Care Provider Unavailabl e Encounter Details Date Type Department Care Team (Latest Contact Info) Description 09/15/2013 9:37 EST - 09/15/2013 23:59 EST Hospital Encounter [address] [address] Unknown, Provider, Discharge Disposition: Home or Self [...] Code Departure Means Destination Home or Self Long-Term documented in this encounter Plan of Treatment Not on file documented as of this encounter Visit Diagnoses Not on filedocumented in this encounter
--- OUTSIDE RECORDS SUMMARY | 2024-05-28 10:37 | XMS_ITS | Encounter Summary ---
Author Organization [facility] [place] [address] Care Team Providers Care Sail Repairer Name Role Phone Nicky Brewster MD Primary Care Provider [phone] Encounter Details Date Type Department Care Team (Late st Contact Info) Description 01/25/2024 Orders Only [place] [address] Jazmín Zarate, ROBERT [facility] [place] [address] Social History Tobacco Use Types Packs/Day Years [...] Procedure Name Priority Date/Time Associated Diagnosis Comments QUANTIFERON-TB GOLD Routine 01/25/2024 3 :06 PM EDT documented in this encounter Results * QuantiFERON-TB Gold (01/25/2024 3:06 PM EDT) Quantiferon Nil 0.008 IU/mL [facility] QFT TB Ag1-Nil 0.057 IU/mL [facility] QFT TB Ag2-Nil 0.043 IU/mL [facility] Quantiferon Mitogen-Nil 9.992 IU/mL [facility] Quantiferon-TB Gold Negative Negative [facility] Quantiferon Tb Interp M. tuberculosis infection NOT likely A negative specimen should have a TB1 Ag minus Nil value and TB2 Ag minus Nil value of less than 0.35 IU/mL OR a TB1 Ag minus Nil or TB2 Ag minus Nil value greater than or equal to 0.35 IU/mL AND a TB Ag minus Nil value from the same tube of less than 25% of the Nil value. A negative specimen must also have a mitogen minus Nil value greater than or equal to 0.5 IU/mL. A negative QFT-Plus result does not preclude the possibility of M. tuberculosis infection. False negative results can occur due to stage of infection (specimen obtained prior to the development of immune response), co-morbid conditions which affect immune function, or other immunological factors. [facility] Blood Venous Draw / Unknown 01/25/2024 3:06 PM EDT 01/28/2024 7:59 AM EDT Narrative Resulting Agency Comment Spec In Lab Jazmín Zarate APRN CHEMISTRY ORDERABLES [facility] [place] [phone] documented in this encounter Visit Diagnoses Not on filedocumented in this encounter Care Teams Sail Repairer Relationship Specialty Start Date End Date Nicky Brewster MD [address] [place] [address] PCP - General Family Medicine 07/25/16 documented as of this encounter
--- OUTSIDE RECORDS SUMMARY | 2024-05-28 10:37 | XMS_ITS | Encounter Summary ---
Author Organization [facility] Address [address] [place] [address] Care Team Providers Care Associate Team Physician Name Role Phone Alia Lee NP Primary Care Provider Encounter Details Date Type Department Care Team (Late st Contact Info) Description 12/21/2016 Results Only [facility] [phone] Sergio Ruiz, DO [address] [facility] [address] [address] [place], [place] [id number] Social History Tobacco Use Types Packs/Day Years [...] Date/Time Associated Diagnosis Comments SURGICAL PATHOLOGY Routine 12/21/2016 11 :35 EST documented in this encounter Results * SURGICAL PATHOLOGY (12/21/2016 11:35 EST) Pathology Report: SURGICAL PATHOLOGY REPORT Reports generated via electronic interface contain original data; however they are lacking the format of the original report. Caution should be taken when reading/interpret ing unformatted reports. Name: ? CYN FERRERA ? Accession #: ? [id number] ? : ? 1980 (Age: 36) ??F ? Collect Date: ? 12/21/2016 ? Location: ? [facility] ? Receive Date: ? 12/22/2016 ? Provider: SERGIO RUIZ DO Copy to: BELLO BUTLER MD ? Final Pathologic Diagnosis: SKIN OF PUBIC REGION, LEFT, EXCISION: - Cystically dilated follicle with associated inflammation and granulation tissue. See comment. Comment: Present is a cystically dilated follicle with associated hair shaft and evidence of rupture. ??The findings could be consistent with the patient's provided clinical history of hidradenitis suppurativa. (Dr. Ochoa)/[facility] Document reviewed and electronically signed by: CHUCKY OCHOA MD Report ??Date: 12/25/2016 16:11 By the signature above, the attending physician certifies that he/she has personally conducted a gross and/or microscopic examination of the described specimens and rendered or confirmed the above diagnosis. Specimen(s) Received: Lesions left pubic area Clinical History: Ingrown hair scar left pubic area vs hidradenitis Gross Description: ? Received in formalin labelled with proper patient identification (initials M A) and lesion/ingrown hair left pubic area is an unoriented ellipse of willoughby-brown skin (2.2 x 0.8 cm and is excised to depth of 0.7 cm). There is a 0.5 x 0.2 cm recent disrupted focus. The surgical margin is inked black. The specimen is serially sectioned and submitted entirely as tips, reverse en face, 1 and central sections in 2 and 3. BOOKER Crisostomo (ASCP) 12/22/2016 2:57 PM End of Report [facility] 12/21/2016 11:3 5 EST 12/22/2016 11:35 EST Sergio Ruiz DO PATHOLOGY ORDER TATYANA [facility] [address] [place] [address] documented in this encounter Visit Diagnoses Not on filedocumented in this encounter Care Teams Associate Team Physician Relationship Specialty Start Date End Date Alia Lee NP [address] [place] [id number] PCP - General 09/22/13 12/23/16 documented as of this encounter
--- OUTSIDE RECORDS SUMMARY | 2024-05-28 10:37 | XMS_ITS | Encounter Summary ---
Author Organization [facility] Address [address] [place] [address] Care Team Providers Care Slitting Machine Feeder Name Role Phone Unavailable Primary Care Provider Unavailabl e Encounter Details Date Type Department Care Team (Late st Contact Info) Description 05/08/2006 Results Only [facility] [address] [place] [address] Rodrick Oreilly MD [address] [place] [address] Social History Tobacco Use Types Packs/Day Years [...] Date/Time Associated Diagnosis Comments SURGICAL PATHOLOGY Routine 05/08/2006 0:00 EDT documented in this encounter Results * SURGICAL PATHOLOGY (05/08/2006 0:00 EDT) Pathology Report: SURGICAL PATHOLOGY REPORT Reports generated via electronic interface contain original data; however they are lacking the format of the original report. Caution should be taken when reading/interpreti ng unformatted reports. Name: ? CYN VAZQUEZ ? Accession #: ? [id number] ? : ? 1980 (Age: 25) ??F ? Collect Date: ? 05/08/2006 ? Location: ? [facility] ? Receive Date: ? 05/08/2006 ? Provider: GENARO OREILLY MD Copy to: JANY MCCURDY SERVICE STATION CONSOLE OPERATOR ? Final Pathologic Diagnosis: ? Gallbladder, cholecystectomy: 1. ?Chronic cholecystitis and cholelithiasis. 2. ?One reactive lymph node. Document reviewed and electronically signed by: DILIA SAUCEDA MD Report ??Date: 05/10/2006 15:45 By the signature above, the attending physician certifies that he/she has personally conducted a gross and/or microscopic examination of the described specimens and rendered or confirmed the above diagnosis. Specimen(s) Received: ? Gallbladder + stone Clinical History: ? Cholelithiasis Gross Description: ? Received in formalin labelled [facility] and gallbladder is an intact gallbladder which measures 7.0 cm in length and 2.8 cm in maximum diameter. ??The specimen includes a 1.7 cm length of cystic duct. ??A cystic duct lymph node is present and measures 1.3 x 0.8 x 0.8 cm. ??The cut surface is willoughby-white. ??The serosal surface of the gallbladder is willoughby-johnson, smooth and glistening. ??Upon opening, a 2.9 x 2.2 x 1.8 cm smooth, green-gold mixed calculus is present. ??The gallbladder is lined by a willoughby-green and focally hemorrhagic velvety mucosa. ??The wall measures 0.2 cm in thickness. ??Three customer service representative sections of the gallbladder and a section of the lymph node are submitted as (A1) and (A2). ??(Shefali Souza)/cassidy End of Report [facility] MARTINEZ 05/08/2006 05/08/2006 9:5 8 EDT Rodrick Oreilly MD PATHOLOGY ORDERABLES [facility] MARTINEZ [address] [place] [address] documented in this encounter Visit Diagnoses Not on filedocumented in this encounter
--- OUTSIDE RECORDS SUMMARY | 2024-05-28 10:37 | XMS_ITS | Encounter Summary ---
Author Organization [facility] Address [address] [place] [address] Care Team Providers Care Monitor Worker Name Role Phone Alia Lee NP Primary Care Provider [phone] Encounter Details Date Type Department Care Team (Late st Contact Info) Description 01/26/2016 Results Only [place] [phone] Deni White MD [facility] [place], [place] [address] Social History Tobacco Use Types Packs/Day Years [...] Date/Time Associated Diagnosis Comments SURGICAL PATHOLOGY Routine 01/26/2016 9:21 EDT documented in this encounter Results * SURGICAL PATHOLOGY (01/26/2016 9:21 EDT) Pathology Report: SURGICAL PATHOLOGY REPORT Reports generated via electronic interface contain original data; however they are lacking the format of the original report. Caution should be taken when reading/interpret ing unformatted reports. Name: ? CYN FERRERA ? Accession #: ? [id number] ? : ? 1980 (Age: 35) ??F ? Collect Date: ? 01/26/2016 ? Location: ? [facility] ? Receive Date: ? 01/27/2016 ? Provider: DENI WHITE MD Copy to: THOM MATTA PUT IN BEAT ADJUSTER ? Final Pathologic Diagnosis: A. DUODENUM, BIOPSY: - ??Duodenal mucosa with no specific pathologic features. B. ESOPHAGUS, GE JUNCTION, BIOPSY: - ??Squamocolumnar junctional mucosa with features consistent with reflux esophagitis. - ??Negative for intestinal metaplasia or dysplasia. Document reviewed and electronically signed by: ASIA BRITTON MD Report ??Date: 01/28/2016 12:05 By the signature above, the attending physician certifies that he/she has personally conducted a gross and/or microscopic examination of the described specimens and rendered or confirmed the above diagnosis. Specimen(s) Received: A. ?Bx duodenum B. ? Bx GE junction Clinical History: Abdominal pain, bloating, diarrhea Gross Description: A. ?Received in formalin labelled with proper patient identification (initials M, A) and bx duodenum is a single pink-willoughby tissue fragment (0.5 x 0.3 x 0.3 cm). Submitted intact in A1. B. ?Received in formalin labelled with proper patient identification (initials M, A) and bx GE junction are two pink-willoughby tissues (0.1 x 0.1 x 0.1 cm and 0.3 x 0.2 x 0.2 cm). Entirely submitted in B1. Asia Caraballo 01/27/2016 11:12 AM End of Report [facility] 01/26/2016 9:21 EDT 01/27/2016 9:21 EDT Deni White MD PATHOLOGY ORDERA TONY [facility] [address] [place] [address] documented in this encounter Visit Diagnoses Not on filedocumented in this encounter Care Teams Monitor Worker Relationship Specialty Start Date End Date Alia Lee NP [address] [place] [id number] PCP - General 09/22/13 12/23/16 documented as of this encounter
--- OUTSIDE RECORDS SUMMARY | 2024-05-28 10:37 | XMS_ITS | Encounter Summary ---
Author Organization [facility] [place] [address] Care Team Providers Care Rotary Surface Grinder Name Role Phone Maria D Quinones ROBERT Primary Care Provider [phone] Reason for Visit * Reason Comments Skin Check Encounter Details Date Type Department Care Team ([facility] Contact Info) Description 02/03/2013 3:15 PM EDT Office Visit Dermatology at [address] [address] Bessie Jefferson MD [address] [facility] [place] [address] Dermatofibroma (Primary Dx); Acne; Abnormal facial hair; Jones angioma Discharge Disposition: Home Social History Tobacco Use Types Packs/Day Years Used Date Smoking Tobacco: Never Smokeless Tobacco: Never Alcohol Use Standard Drinks/Week Comments No 0 (1 standard drink = 0.6 oz pur e alcohol) Sex and Gender Information Value Date Recorded Sex Assigned at Not on file Gender Identity Not on file Sexual Orientation Not on file documented as of this encounter Last Filed Vital Signs Vital Sign Reading Time Taken Comments Blood Pressure 139/80 02/03/2013 4:18 PM EDT Pulse 85 02/03/2013 4:18 PM EDT Temperature - - Respiratory Rate - - Oxygen Saturation 100% 02/03/2013 4:18 PM EDT Inhaled Oxygen Concentration - - Weight - - Height - - Body Mass Index - - documented in this encounter Progress Notes * Bessie Waldron MD - 02/03/2013 3:44 PM EDT DERMATOLOGY - NEW PATIENT/CONSULT NOTE Date of service: 02/03/2013 Cyn Harding : 1980 Chief Problem: Chief Complaint Patient presents with ??? Skin Check Ms. Cyn Harding is a 32 y.o. female. This is a new patient to me. Seen in consultation at the request of Cindi Jones specifically for the evaluation and management of the above problem. Present alone today. HPI: Ms. Harding presents for a waist up skin exam. Patient has a spot on her left posterior arm which she thinks has recently changed and a spot on her back that gets irritated by her bra, unknown duration, no previous tx. Pt also c/o her tongue feeling itchy after having allergy testing today, she denies any trouble with breathing. Sun exposure history: Denies Past Skin History: Acne MedHx: Pacemaker/Defib./joint replacement: No Anticoagulants: No Diabetes: Prediabetic Smoker: No Medical History: Patient Active Problem List Diagnoses Code ??? Dyspepsia 536.8 ??? Fibromyalgia 729.1 Medications: Current Outpatient Prescriptions Medication Sig Dispense Refill ??? epiNEPHrine (EPIPEN) 0.3 mg/0.3 mL (1:1,000) injection Inject 0.3 mLs into the muscle once as needed for 1 dose. 0.3 mL 1 ??? loratadine (CLARITIN REDITABS) 10 mg dissolvable tablet Take 1 tablet by mouth daily. 30 tablet5 ??? DISCONTD: dexlansoprazole (DEXILANT) 60 mg CpDM Take 60 mg by mouth daily. 30 each 11 ??? naproxen (NAPROSYN) 500 mg tablet Take 500 mg by mouth 2 times daily (with meals). ??? hydroxychloroquine (PLAQUENIL) 200 mg tablet Take by mouth 2 times daily. ??? traMADol (ULTRAM) 50 mg tablet Take 50 mg by mouth 2 times daily as needed. One or two tablets ??? meclizine (ANTIVERT) 25 mg tablet Take 25 mg by mouth 3 times daily as needed. ??? ergocalciferol (ERGOCALCIFEROL) 50,000 unit capsule Take 50,000 Units by mouth every 14 days. ??? Cholecalciferol, Vitamin D3, (VITAMIN D) 1,000 unit Cap Take by mouth. ??? Cyanocobalamin 1,000 mcg/mL Syrg Inject 1,000 mcg as directed every 30 days. Allergies: Allergies Allergen Reactions ??? Penicillins Family History: No family h/o melanoma, or Non Melanoma Skin Cancer Family history- acne Social/Occupational History: Per hpi Review of Systems: General: Feels well Skin: As per HPI; no other skin concerns Examination: Constitutional: Patient was alert, well-appearing and in no noticeable distress. Skin: A Examination of skin from the waist up was performed. This includes examination of the skin of the face, ears, neck, chest, axillae, left and right upper extremities, hands, back, and abdomen. Specific skin findings: 1. firm papule, centrally raised and sclerotic, peripheral hyperpigmentation. Dimpling with lateralpressure- left posterior upper arm Photos taken with patient's consent: 2. Multiple 0.2-0.4cm bright red, well-demarcated papules- trunk 3. Facial hair 4.Erythematous papules and pustules, open and closed comedones on face Diagnosis/Assessment/Treatment Plan: 1. Dermatofibroma -Etiology explained -Patient reassured area is benign in nature. 2. Jones Angioma -Patient reassured 3. Facial hair- pt asking about tx options: -Discussed treatment such as laser hair removal: Discussed that this procedure would be considered cosmetic; therefore insurance would not cover it and payment of procedure would be expected at time of service in full. -Quoted Cost: $300.00 4. Acne -Rx: Benzaclin 1-5% gel -Apply a pea sized amount to face every other day working up to daily as tolerated. Rx: Benzaclin gel. PRN refills. Apply to face in morning. Patient instructed to apply a dime-sized portion in one thin layer after washing face. Side effects such as redness and irritation were discussed. Patient was warned that benzoyl peroxide can bleach fabrics such as clothing and towels. +++++ -Patient states that she had allergy testing done earlier today and now states that her tongue is itchy. Patient denies any trouble breathing or trouble swallowing. She has not picked up her epi pen Rx yet. Water was given to patient and it was highly recommended she call her kiln furniture saw tender as soon as she leaves here to report her symptoms. -Allergy was contacted and it was advised that she return to allergy clinic. At that point, pt refused to drive and patient stated that she did not feel as though she should be driving because she stated was feeling more spacey than usual and does not think she would pass a field sobriety test. Pt therefore sent via ambulance. Vital signs: Pulse: 85 BP: 139/80 O2: 100% -[facility] ED was called, report given. Patient sent via ambulance. Patient verbally expressed understanding. I asked the patient at the end of the visit if she had any further concerns or questions and the patient verbally stated that she had no other concerns or questions. All questions were answered and all concerns were addressed. Follow-up: RTC PRN. Note reviewed, changed, edited and signed by Bessie Waldron MD Section of Dermatology [facility] documented in this encounter Plan of Treatment Not on file documented as of this encounter Visit Diagnoses Diagnosis Dermatofibroma- Primary Benign neoplasm of skin, site unspecified Acne Other acne Abnormal facial hair Hirsutism Jones angioma Nevus, non-neoplastic documented in this encounter Care Teams Rotary Surface Grinder Relationship Specialty Start Date End Date Maria D Quinones APRN PCP - General 01/24/13 07/24/16 documented as of this encounter
--- OUTSIDE RECORDS SUMMARY | 2024-05-28 10:37 | XMS_ITS | Encounter Summary ---
Author Organization [facility] Address [address] [place] [address] Care Team Providers Care Machinery Mover Name Role Phone Alia Lee NP Primary Care Provider Encounter Details Date Type Department Care Team (Latest Contact Info) Description 01/26/2016 10:16 EDT - 01/26/2016 23:59 EDT Hospital Encounter [address] [address] Unknown, Provider, Discharge Disposition: Home or Self [...] Code Departure Means Destination Home or Self [facility] documented in this encounter Plan of Treatment Not on file documented as of this encounter Visit Diagnoses Not on filedocumented in this encounter Care Teams Machinery Mover Relationship Specialty Start Date End Date Alia Lee, KASH [address] [place] [address] PCP - General 09/22/13 12/23/16 documented as of this encounter
--- OUTSIDE RECORDS SUMMARY | 2024-05-28 10:37 | XMS_ITS | Encounter Summary ---
Author Organization [facility] [place] [address] Care Team Providers Care Manager Country Name Role Phone Nicky Brewster MD Primary Care Provider [phone] Reason for Referral * Physical Therapy (Routine) - Closed Specialty Diagnoses / Procedures Referred By Contac t Referred To Contact Diagnoses Dyspareunia, female Pelvic floor dysfunction Veronica Melton MD [facility] OBSTETRICS [facility] [place] [address] Unknown None Referral ID Status Reason Start Date Expiration Date V isits Requested Visits Authorized [id number] Closed Evaluate and Treat 11/08/2016 05/07/2017 12 12 Reason for Visit * Reason Comments Establish Care * Consultation (Routine) - Closed Specialty Diagnoses / Procedures Referred By Contac t Referred To Contact Obstetrics and Gynecology Diagnoses VULVA CYST Nicky Brewster MD [address] [place] [address] Veronica Melton MD [facility] OBSTETR[facility] [place] [address] Referral ID Status Reason Start Date Expiration Date V isits Requested Visits Authorized [id number] Closed Consult, Test & Treat [facility] 07/25/2016 07/25/2017 1 1 Encounter Details Date Type Department Care Team (Late st Contact Info) Description 11/08/2016 11:00 AM EST Office Visit Obstetrics and Gynecology at [facility] [place] [address] Veronica Melton MD [facility] [place] [address] Fibromyalgia; Dyspareunia, female; Pelvic floor dysfunction; Vulvar cysts Social History Tobacco Use Types Packs/Day Years [...] Sign Reading Time Taken Comments Blood Pressure 115/75 11/08/2016 11:45 AM EST Pulse 106 11/08/2016 11:45 AM EST Temperature - - Respiratory Rate - - Oxygen Saturation - - Inhaled Oxygen Concentration - - Weight 120 kg (264 lb 9.6 oz) 11/08/2016 11:45 A M EST Height 160.7 cm (5' 3.25) 11/08/2016 11:[address] Body Mass Index 46.5 11/08/2016 11:45 AM EST documented in this encounter Progress Notes * Veronica Melton MD - 11/08/2016 11:00 AM EST Ms. Renteria is a 36 y.o.P2 seen at the request of Dr. Nicky Brewster for vulvar cysts. She is 30 mins late for her visit. She is using mirena IUD for contraception - works well for her. She notes pain on the L side of her vulva going into the vagina during arousal with sex. It has decreased the frequency of sex for her. It takes a while after sex for the symptoms to subside. This has been getting worse since last summer. She has a long history of vulvar cysts, which she thinks might be the cause of her discomfort with them pulling during sex, or scarring from the cysts. She needed one opened recently on her mons and did take antibiotics, did not take fluconazole. Doesnot get frequent yeast infections She has fibromyalgia, and does note L hip pain (worse than the R) PMH: Fibromyalgia, allergies and hay fever, obesity, PSH: C/S X 2, cholecystectomy 2009 ROS: Esophageal burning, History of coccyx injury in 1999, sciatica during her pregnancies. 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 OMNARIS 50 mcg [place], Non-Aerosol USE 2 SPRAYS IN EACH NOSTRIL ONCE DAILY 2 ??? esomeprazole (NEXIUM) 20 mg Capsule, Delayed Release(E.C.) TAKE ONE CAPSULE BY MOUTH EVERY DAY 3 ??? sucralfate (CARAFATE) 1 gram Tablet TAKE ONE TABLET BY MOUTH EVERY MORNING TAKE ONE TABLET AT NOON ONE TABLET EARLY EVENING AND ONE TABLET AT BEDTIME BEFORE MEALS FOUR TI 1 ??? celecoxib (CELEBREX) 200 mg Capsule Take 200 mg by mouth daily. ??? loratadine (CLARITIN REDITABS) 10 mg dissolvable tablet Take 1 tablet by mouth daily. 30 tablet5 ??? hydroxychloroquine (PLAQUENIL) 200 mg tablet Take by mouth 2 times daily. ??? traMADol (ULTRAM) 50 mg tablet Take 50 mg by mouth 2 times daily as needed. One or two tablets ??? ergocalciferol (ERGOCALCIFEROL) 50,000 unit capsule Take 50,000 Units by mouth every 14 days. ??? Cholecalciferol, Vitamin D3, (VITAMIN D) 1,000 unit Cap Take by mouth. ??? Cyanocobalamin 1,000 mcg/mL Syrg Inject 1,000 mcg as directed every 30 days. Patient Active Problem List Diagnosis Code ??? Dyspepsia R10.13 ??? Fibromyalgia M79.7 BP 115/75 Pulse 106 Ht 160.7 cm (5' 3.25) Wt (!) 120 kg (264 lb 9.6 oz) BMI 46.5 kg/m2 On exam, she looks well. On vulvar exam, she has 2 small epithelial inclusion cysts on L labia majus, and one on R. The lower 1/3 of the labia majus is sore with touch. She has tenderness with palpation of the vestibular glands throughout. Speculum exam: nl vaginal mucosa. Vag yeast culture done. She is tender with palpation of the levator ani muscles R & L Impression: Dyspareunia with pelvic floor dysfunction. I think the vulvar cysts are incidental and are not related to her pain. Plan: discussed diagnosis, handout on websites given. Rx lidocaine 5% ointment. Discussed pelvic floor PT, she is interested, will try and find a local PT that does pelvic floor work. Discussed oral medication to treat neuropathic pain - would consider gabapentin, this might help her fibromyalgia also. If her yeast culture is positive, it is probably related to recent antibiotic use, would give limited fluconazole Rx. F/u 6 months, she can call to start the gabapentin if she is not getting good results from the PT. Copy: Dr. Nicky Brewster I spent 35 minutes total with the patient, with 30 minutes of the time spent [id number] in discussing her diagnosis and reviewing options for treatment documented in this encounter Plan of Treatment Scheduled Referrals Name Type Priority Associated Diagnoses Orde r Schedule Referral to Physical Therapy Outpatient Referral Routine Dyspareunia, female Pelvic floor dysfunction Ordered: 11/08/2016 documented as of this encounter Procedures Procedure Name Priority Date/Time Associated Diagnosis Comments YEAST CULTURE Routine 11/08/2016 4:37 PM EST Dyspareunia, female documented in this encounter Results * Yeast culture Vaginal (11/08/2016 4:37 PM EST) Yeast Culture No Yeast isolated [facility] Vaginal 11/08/2016 4:37 PM EST 11/08/2016 4:37 PM EST Narrative Resulting Agency Comment Spec In Lab Veronica Melton MD MICROBIOLOGY - GENE [facility] ORDERABLES [facility] [place] [address] documented in this encounter Visit Diagnoses Diagnosis Fibromyalgia Mylagia and myositis, unspecified Dyspareunia, female Dyspareunia Pelvic floor dysfunction Pelvic muscle wasting Vulvar cysts Other specified noninflammatory disorder of vulva and perineum documented in this encounter Care Teams Manager Country Relationship Specialty Start Date End Date Nicky Brewster MD [address] [place] [address] PCP - General Family Medicine 07/25/16 documented as of this encounter
--- OUTSIDE RECORDS SUMMARY | 2024-05-28 10:37 | XMS_ITS | Encounter Summary ---
Author Organization [facility] [place] [address] Care Team Providers Care Railway Station Manager Name Role Phone Nciky Brewster MD Primary Care Provider [phone] Encounter Details Date Type Department Care Team (Late st Contact Info) Description 11/01/2020 Refill Dermatology at [address] [place] [address] Alicia Andersen, ASSISTANT PROJECT MANAGER Social History Tobacco Use Types Packs/Day Years [...] on filedocumented in this encounter Care Teams Railway Station Manager Relationship Specialty Start Date End Date Nicky Brewster MD [address] [place] [address] PCP - General Family Medicine 07/25/16 documented as of this encounter
--- OUTSIDE RECORDS SUMMARY | 2024-05-28 10:37 | XMS_ITS | Encounter Summary ---
[place] [address] Care Team Providers Care Screening Specialist Name Role Phone Nicky Brewster MD Primary Care Provider [phone] Encounter Details Date Type Department Care Team (Latest Contact Info) Description 01/25/2024 Travel Social History Tobacco Use Types Packs/Day [...] on filedocumented in this encounter Care Teams Screening Specialist Relationship Specialty Start Date End Date Nicky Brewster MD [address] [place] [address] PCP - General Family Medicine 07/25/16 documented as of this encounter
--- OUTSIDE RECORDS SUMMARY | 2024-05-28 10:37 | XMS_ITS | Encounter Summary ---
Author Organization [facility] Address [facility] [place] [address] Care Team Providers Care Rn Medicare Name Role Phone Nicky Brewster MD Primary Care Provider Encounter Details Date Type Department Care Team (Late st Contact Info) Description 01/25/2024 Orders Only Occup[place] [address] Jazmín Zarate, [facility]ERT [facility] [place] [address] Social History Tobacco Use Types Packs/Day Years [...] Diagnosis Comments HEPATITIS B SURFACE ANTIBODY Routine 01/25/2024 3:06 PM EDT documented in this encounter Results * Hepatitis B Surface Antibody (01/25/2024 3:06 PM EDT) Hepatitis B Surface Antibody, Quantitative <3.5 IU/L [facility] Comment: HepB Surface Ab Quant: Unvaccinated: < 8.5 IU/L Vaccinated: >= 11.5 IU/L Hepatitis B Surface Antibody Negative [facility] Comment: Patient is presumed to be not vaccinated or immune to HBV infection. Expected Results: Vaccinated: Positive Unvaccinated: Negative Blood Venous Draw / Unknown 01/25/2024 3:06 PM EDT 01/25/2024 3:27 PM EDT Narrative Resulting Agency Comment Spec In Lab Jazmín Zarate MILK PICKUP DRIVER CHEMISTRY ORDERABLES [facility] [place] [address] documented in this encounter Visit Diagnoses Not on filedocumented in this encounter Care Teams Rn Medicare Relationship Specialty Start Date End Date Nicky Brewster MD [address] [place] [address] PCP - General Family Medicine 07/25/16 documented as of this encounter
--- OUTSIDE RECORDS SUMMARY | 2024-05-28 10:37 | XMS_ITS | Encounter Summary ---
Author Organization [facility] [place] [address] Care Team Providers Care Employment Case Manager Name Role Phone Nicky Brewster MD Primary Care Provider [phone] Reason for Referral * Audiology Exam (Routine) - Authorized Specialty Diagnoses / Procedures Referred By Marisol avila Referred To Contact Audiology Diagnoses Unspecified visual disturbance Kisha Moreno [address] [place] [address] [facility] Aud[facility] [address] [place] [phone] Referral ID Status Reason Start Date Expiration Date Visits Requested Visits Authorized [id number] Authorized Specialty Service Requested 11/15/2023 11/14/2024 1 1 Encounter Details Date Type Department Care Team (Latest Contact Info) Description 11/15/2023 Transcribe Orders eD Incoming Referrals [phone] Kisha Moreno [address] [place], [place] [address] Unspecified visual disturbance (Primary Dx) Social History Tobacco Use Types [...] of this encounter Plan of Treatment Scheduled Referrals Name Type Priority Associated Diagnoses Orde r Schedule Referral to Audiology Outpatient Referral Routine Unspecified visual disturbance Ordered: 11/15/2023 documented as of this encounter Visit Diagnoses Diagnosis Unspecified visual disturbance- Primary documented in this encounter Care Teams Employment Case Manager Relationship Specialty Start Date End Date Nicky Brewster MD [address] [place] [address] PCP - General Family Medicine 07/25/16 documented as of this encounter
--- OUTSIDE RECORDS SUMMARY | 2024-05-28 10:37 | XMS_ITS | Encounter Summary ---
Author Organization [facility] [place] [address] Care Team Providers Care Air Launch Weapons Technician Name Role Phone Nicky Brewster MD Primary Care Provider [phone] Encounter Details Date Type Department Care Team (Late st Contact Info) Description 01/25/2024 Orders [place] [address] Jazmín Zarate, ROBERT [facility] [place] [address] Social History Tobacco Use Types Packs/Day Years [...] Procedure Name Priority Date/Time Associated Diagnosis Comments RUBELLA ANTIBODY, IGG Routine 01/25/2024 3:06 PM EDT documented in this encounter Results * Rubella Antibody, IgG (01/25/2024 3:06 PM EDT) Rubella Antibody IgG Positive Positive [facility] Comment: Please note: ??A positive result for this assay indicates that antibody levels are >or= 10.0 IU/mL and is considered to be an indicator of positive immune status. Blood Venous Draw / Unknown 01/25/2024 3:06 PM EDT 01/25/2024 3:27 PM EDT Narrative Resulting Agency Comment Spec In Lab Jazmín T Elliot QUANTITATIVE EQUITY HEAD CHEMISTRY ORDERABLES [facility] [place] [address] documented in this encounter Visit Diagnoses Not on filedocumented in this encounter Care Teams Air Launch Weapons Technician Relationship Specialty Start Date End Date Nicky Brewster MD [address] [place] [address] PCP - General Family Medicine 07/25/16 documented as of this encounter
--- OUTSIDE RECORDS SUMMARY | 2024-05-28 10:37 | XMS_ITS | Encounter Summary ---
Author Organization [facility] [place] [address] Care Team Providers Care Retail Product Advisor Name Role Phone Nicky Brewster MD Primary Care Provider [phone] Encounter Details Date Type Department Care Team (Late st Contact Info) Description 04/16/2017 Refill Dermatology at [address] [place] [address] Alicia Andersen, [employer]ODUCTS MAKER Social History Tobacco Use Types Packs/Day Years [...] on filedocumented in this encounter Care Teams Retail Product Advisor Relationship Specialty Start Date End Date Nicky Brewster MD [address] [place] [address] PCP - General Family Medicine 07/25/16 documented as of this encounter
--- OUTSIDE RECORDS SUMMARY | 2024-05-28 10:37 | XMS_ITS | Encounter Summary ---
Author Organization [facility] [place] [address] Care Team Providers Care Fire Hydrant Mechanic Name Role Phone Nicky Brewster MD Primary Care Provider [phone] Encounter Details Date Type Department Care Team (Late st Contact Info) Description 08/16/2018 Refill Dermatology at [address] [place] [address] Alicia Andersen, NURSE HEAD Social History Tobacco Use Types Packs/Day Years [...] on filedocumented in this encounter Care Teams Fire Hydrant Mechanic Relationship Specialty Start Date End Date Nicky Brewster MD [address] [place] [address] PCP - General Family Medicine 07/25/16 documented as of this encounter
--- OUTSIDE RECORDS SUMMARY | 2024-05-28 10:37 | XMS_ITS | Encounter Summary ---
Author Organization [facility] Address [address] [place] [address] Care Team Providers Care Ancillary Specialist Name Role Phone Nicky Brewster MD Primary Care Provider [phone] Encounter Details Date Type Department Care Team (Late st Contact Info) Description 06/26/2017 Results Only [facility] [phone] Ladan Maria MD [address] [place] [address] Social History Tobacco Use Types Packs/Day Years [...] Procedure Name Priority Date/Time Associated Diagnosis Comments PAP TEST- RESULT ONLY Routine 06/26/2017 0:00 EDT documented in this encounter Results * PAP TEST- RESULT ONLY (06/26/2017 0:00 EDT) Pathology Report: CYTOPATHOLOGY REPORT Reports generated via electronic interface contain original data; however they are lacking the format of the original report. Caution should be taken when reading/interpreti ng unformatted reports. Name: ? CYN FERRERA ? Accession #: ? [id number] ? : ? 1980 (Age: 37) ??F ?Collect Date: ? 06/26/2017 ? Location: ? [facility] ? Receive Date: ? 06/28/2017 ? Provider: LADAN MARIA MD Copy to: ? Final Report SPECIMEN ADEQUACY ? Satisfactory for Evaluation - transformation zone component present GENERAL CATEGORIZATION ? Negative for Intraepithelial Lesion or Malignancy ?? Hormonal/Contracep tive status: Intrauterine device: Mirena Other: Previous NIL Pap(s): 2006 Specimen/Source: ??Pap Test, Cervix, ThinPrep Imaging System with manual evaluation Document reviewed and electronically signed by: ? PRINCESS Bolivar(ASCP) ? Report ??Date: 07/04/2017 12:23 HPV with Pap Test ? Date Ordered: ? 07/04/2017 ? Status: ?? Signed Out ?Date Complete: ? 07/05/2017 ? By: ??System Interface ? Date Reported: ? 07/05/2017 ? Interpretation RESULT: Negative for HPV. No E6 or E7 mRNA is detected from HPV types 16,18,31,33,35, 39,45,51,52,56,58, 59,66, and 68 by security chief museum mediated amplification. Comments Document reviewed and electronically signed by: ? System Interface ? Report date: 07/05/2017 By the signature above, the attending physician certifies that he/she has personally conducted a gross and/or microscopic examination of the described specimens and rendered or confirmed the above diagnosis. End of Report [facility] 06/26/2017 06/28/2017 Ladan Maria MD PATHOLOGY ORDERABLES Performing Organization Address City/State/[facility] Co de Phone Number [facility] [address] [place] [address] documented in this encounter Visit Diagnoses Not on filedocumented in this encounter Care Teams Ancillary Specialist Relationship Specialty Start Date End Date Nicky Brewster MD [address] [place] [address] PCP - General 12/24/16 documented as of this encounter
--- OUTSIDE RECORDS SUMMARY | 2024-05-28 10:37 | XMS_ITS | Encounter Summary ---
Author Organization [facility] Address [address] [place] [address] Care Team Providers Care Umbrella Tipper Name Role Phone Unavailable Primary Care Provider Unavailabl e Encounter Details Date Type Department Care Team (Late st Contact Info) Description 01/15/2003 Results Only [facility] [address] [place] [address] Vincent Watkins MD [address] [place], [place] [address] Social History Tobacco Use Types Packs/Day Years [...] Priority Date/Time Associated Diagnosis Comments CYTOPATHOLOGY Routine 01/15/2003 0:00 EST documented in this encounter Results * CYTOPATHOLOGY (01/15/2003 0:00 EST) Pathology Report: CYTOPATHOLOGY REPORT Reports generated via electronic interface contain original data; however they are lacking the format of the original report. Caution should be taken when reading/interpreti ng unformatted reports. Name: ? CNY VAZQUEZ ? Accession #: ? [id number] : ? 1980 (Age: 22) ??F ?Collect Date: ? 01/15/2003 Location: ? [facility] ? Receive Date: ? 01/19/2003 Provider: ?VINCENT WATKINS MD Copy to: ? Specimen/Source: ?ThinPrep Pap Test, Cervix/Endocervix Last Menstrual Period: ? 02/12 Hormonal/Contracep tive Status: ? Depo-Provera ? SPECIMEN ADEQUACY ? Satisfactory for Evaluation - transformation zone component present GENERAL CATEGORIZATION ? Negative for Intraepithelial Lesion or Malignancy ? Document reviewed and electronically signed by: ? PRINCESS Antonio(ASCP) ? Report Date: ??01/21/2003 14:17 End of Report [facility] 01/15/2003 01/19/2003 Vincent Watkins MD PATHOLOGY ORDERABLES [facility] [address] [place] [address] documented in this encounter Visit Diagnoses Not on filedocumented in this encounter
--- OUTSIDE RECORDS SUMMARY | 2024-05-28 10:37 | XMS_ITS | Encounter Summary ---
[place] [address] Care Team Providers Care Senior Windows Systems Engineer Name Role Phone Joni Maria Dulises De León APRN Primary Care Provider [phone] Encounter Details Date Type Department Care Team ([facility] st Contact Info) Description 02/06/2013 Telephone Dermatology at [facility] [address] [place] [address] Bessie Jefferson MD [address] [facility] [place] [address] Social History Tobacco Use Types Packs/Day Years [...] encounter Miscellaneous Notes * Telephone Encounter - Joslyn Nuñez LPN - 02/07/2013 2:14 PM EDT Spoke with patient and informed her that her Rx had been sent. * Telephone Encounter - Joslyn Nuñez LPN - 02/06/2013 1:37 PM EDT Miguel Salgado, It appears as though the note has not been signed and the Rx is still pending. I will send a reminder to Dr. Waldron * Telephone Encounter - Damian Mckinnon - 02/06/2013 1:26 PM EDT Hi there, Patient called to inquire on status of prescription Benzaclin 1-5% gel, she is requesting it be called into [facility]. Damian Ramey documented in this encounter Plan of Treatment Not on file documented as of this encounter Visit Diagnoses Not on filedocumented in this encounter Care Teams Senior Windows Systems Engineer Relationship Specialty Start Date End Date Maria D Quinones APRN PCP - General 01/24/13 07/24/16 documented as of this encounter
--- OUTSIDE RECORDS SUMMARY | 2024-05-28 10:37 | XMS_ITS | Encounter Summary ---
[place] [address] Care Team Providers Care Desk Reporter Name Role Phone Nicky Brewster MD Primary Care Provider [phone] Reason for Visit * Reason Comments Follow-up * Consultation (Routine) - Specialty Diagnoses / Procedures Referred By Marisol avila Referred To Contact Dermatology Diagnoses Disorder of the skin and subcutaneous tissue, unspecified Skin lesion Procedures Consult Nicky Brewster MD [address] [place] [address] Royal Isbell MD [address] [place] [address], [facility] [place] [address] Referral ID Status Reason Start Date Expiration Date V isits Requested Visits Authorized [id number] Consult, Test & Treat PCP Updated and/or Approved 10/29/2020 04/28/2021 6 6 Encounter Details Date Type Department Care Team (Late st Contact Info) Description 11/01/2020 3:45 PM EST Office Visit Dermatology at [address] [address] Royal Isbell MD [address] [place] [address], [facility] [place] [address] Seborrheic keratosis; Seborrheic dermatitis Social History Tobacco Use Types Packs/Day Years [...] Progress Notes * Royal Isbell MD - 11/01/2020 3:45 PM EST Problem: Skin lesion concern left mid lower back yCn follows up after last seeing me in August 2018. She is now 40 states that this summer she had an area on her back that bled and scabbing took quite a while to heal. During an appointment with Dr. Cowan was decided to have this area checked. In the meantime it is healed. Her acne and hit her nidus are largely quiesced and. She does complain of intermittent intertrigo. Dr. Dickson and occasionally will give her a dose of Diflucan, but it does not seem to work as well as it did previously. Physical examination reveals a pleasant 40-year-old woman who has type Elizalde pigmentation and a several seborrheic keratoses in the 6 to 8 mm diameter range on her back. The lesion in question on the left mid lower back is a seborrheic keratosis that is reforming apparently after desquamating this summer. It measures 3 mm in diameter. There is no inflammation for scab no induration at the site. Skin examination of back is otherwise benign. She has no yeast but does have mild seborrheic dermatitis in the conchal bowls and external auditory canals of both ears. Assessment and plan: Seborrheic keratosis left mid lower back 1. Likely became inflamed this summer perhaps due to shirt or bra strap rubbing it 2. Today after discussing this option with patient, LN 2 x 2 applied to site to try and remove it permanently 3. Reassured about benign nature of seborrheic keratoses. 4. Return to clinic as needed. Seborrheic dermatitis ears 1. Begin ketoconazole 2% cream apply once or twice daily to the areas for dry for scaling and dermatitis. Dispense 30 g with 2 refills CC: Nicky Brewster MD documented in this encounter Plan of Treatment Not on file documented as of this encounter Visit Diagnoses Diagnosis Seborrheic keratosis Other seborrheic keratosis Seborrheic dermatitis Seborrheic dermatitis, unspecified documented in this encounter Care Teams Desk Reporter Relationship Specialty Start Date End Date Nicky Brewster MD [address] [place] [address] PCP - General Family Medicine 07/25/16 documented as of this encounter
--- OUTSIDE RECORDS SUMMARY | 2024-05-28 10:37 | XMS_ITS | Encounter Summary ---
[place] [address] Care Team Providers Care Ultrasound Applications Specialist Name Role Phone Nicky Brewster MD Primary Care Provider [phone] Encounter Details Date Type Department Care Team (Late st Contact Info) Description 01/25/2024 3:00 PM EDT Laboratory Appointment Lab [address] [place] [address] Social History Tobacco Use Types Packs/Day Years [...] on filedocumented in this encounter Care Teams Ultrasound Applications Specialist Relationship Specialty Start Date End Date Nicky Brewster MD [address] [place] [address] PCP - General Family Medicine 07/25/16 documented as of this encounter
--- OUTSIDE RECORDS SUMMARY | 2024-05-28 10:37 | XMS_ITS | Encounter Summary ---
Author Organization [place] [address] Care Team Providers Care Content Writer Name Role Phone Nicky Brewster MD Primary Care Provider [phone] Encounter Details Date Type Department Care Team (Late st Contact Info) Description 01/25/2024 Orders Only [place] [address] Jazmín Zarate, [facility] [place] [address] Social History Tobacco Use Types Packs/Day Years [...] Procedure Name Priority Date/Time Associated Diagnosis Comments MEASLES (RUBEOLA) ANTIBODY, IGG Routine 01/25/2024 3:06 PM EDT documented in this encounter Results * Measles (Rubeola) Antibody, IgG (01/25/2024 3:06 PM EDT) Rubeola Antibody IgG Positive Positive [facility] Comment: A positive result for this assay is considered to be an indicator of positive immune status. Blood Venous Draw / Unknown 01/25/2024 3:06 PM EDT 01/28/2024 11:35 AM EDT Narrative Resulting Agency Comment Spec In Lab Jazmín T Elliot CASHIER PAYMENTS RECEIVED IMMUNOLOGY ORDERABLE S Performing Organization Address City/State/[facility] Co de Phone Number [facility] [place] [address] documented in this encounter Visit Diagnoses Not on filedocumented in this encounter Care Teams Content Writer Relationship Specialty Start Date End Date Nicky Brewster MD [address] [place] [address] PCP - General Family Medicine 07/25/16 documented as of this encounter
--- OUTSIDE RECORDS SUMMARY | 2024-05-28 10:37 | XMS_ITS | Encounter Summary ---
Author Organization [facility] [place] [address] Care Team Providers Care Hard Metals Hand Engraver Name Role Phone Nicky Brewster MD Primary Care Provider [phone] Encounter Details Date Type Department Care Team (Late st Contact Info) Description 01/03/2018 Refill Dermatology at [address] [place] [address] Alicia Andersen, TRACTOR ENGINE MECHANIC Social History Tobacco Use Types Packs/Day Years [...] on filedocumented in this encounter Care Teams Hard Metals Hand Engraver Relationship Specialty Start Date End Date Nicky Brewster MD [address] [place] [address] PCP - General Family Medicine 07/25/16 documented as of this encounter
--- OUTSIDE RECORDS SUMMARY | 2024-05-28 10:37 | XMS_ITS | Encounter Summary ---
[place] [address] Care Team Providers Care Claim Benefit Specialist Name Role Phone Nicky Brewster MD Primary Care Provider [phone] Reason for Visit * Reason Comments Follow-up Encounter Details Date Type Department Care Team (Late st Contact Info) Description 07/05/2017 3:45 PM EDT Office Visit Dermatology at [address] [address] Royal Isbell MD [address] [place] [address], [facility] [place] [address] Hidradenitis suppurativa; Acne vulgaris; Hirsutism Social History [...] Progress Notes * Royal Isbell MD - 07/05/2017 3:45 PM EDT PROBLEM: Followup, hidradenitis suppurativa. Cyn follows up and is doing much better. She is having fewer breakouts in the groin area. Nothing really since our last visit under either breast or in the axillary vaults. These areas have been quiescent for some time. Her face is better, although she still is getting some breakouts there of her adult acne. PHYSICAL EXAMINATION: Reveals a pleasant, 36-year-old woman who has today no active areas in either inguinal fold. She has no active areas of acne. She continues to have mild hirsutism of her chin, mild acne across the jaw line. She is type 5 Elizalde pigmentation. A/P: 1. Hidradenitis suppurativa, limited to the groin area. a. Doing much better with topical therapies, benzoyl peroxide 2.5% in the morning, clindamycin 1% cream in the evening. I would be happy to give her refills of these as she needs. b. Doing also well with spironolactone 100 mg, but she is only taking 1 p.o. q. day. Because of the dosing requirements of her other medications for her inflammatory bowel disease, she can only get 1 dose of spironolactone in a day. She has plenty of this left. c.Discussed that therapy is meant to control but will not cure her hidradenitis, and for that matter her adult acne. Return to clinic in 6 months for recheck. 2. Adult acne. a. Continue spironolactone as noted above. b. Recommend I see her again now in 6 months for repeat check. 3. Hirsutism. a. Responding gradually to spironolactone, dosing as noted above, continue. cc: Nicky Brewster MD documented in this encounter Plan of Treatment Not on file documented as of this encounter Visit Diagnoses Diagnosis Hidradenitis suppurativa Hidradenitis Acne vulgaris Other acne Hirsutism documented in this encounter Care Teams Claim Benefit Specialist Relationship Specialty Start Date End Date Nicky Brewster MD [address] [place] [address] PCP - General Family Medicine 07/25/16 documented as of this encounter
--- OUTSIDE RECORDS SUMMARY | 2024-05-28 10:37 | XMS_ITS | Encounter Summary ---
Author Organization [facility] Address [address] [place] [address] Care Team Providers Care Passenger Tire Inspector Name Role Phone Nicky Brewster MD Primary Care Provider [phone] Encounter Details Date Type Department Care Team (Late st Contact Info) Description 01/11/2021 Lab Requisition [facility] Pathology & Laboratory Medicine - [facility] [address] [place] [address] Outr Resulting Lab, Provider Social History Tobacco [...] Comments ZZCOVID-19 TEST [facility] PCR Today 01/11/2021 9:10 EDT COVID-19 TESTING Routine 01/11/2021 9:10 EDT documented in this encounter Results * COVID-19 TEST [facility] PCR (01/11/2021 9:10 EDT) Swab ENTIRE NASOPHARYNX / Unknown 01/11/2021 9:10 EDT 01/11/2021 21:10 EDT Provider Outr Resulting Lab MICROBIOLOGY - GENERAL ORDERABLES Performing Organization Address City/[facility] Co de Phone Number [facility] [address] [place] [address] * COVID-19 TESTING (01/11/2021 9:10 EDT) COVID-19 rt-PCR Result Negative Negative 01/12/2021 0:55 EDT [facility] Comment: This test has [...] history, and epidemiological information. Performed on the [employer] Fusion instrument Performing Lab [place] [facility] 01/12/2021 0:55 EDT [facility] Swab 01/11/2021 9:10 EDT 01/11/2021 21:10 EDT Provider Outr Resulting Lab MICROBIOLOGY - GENERAL ORDERABLES [facility] [address] [place] [address] documented in this encounter Visit Diagnoses Not on filedocumented in this encounter Additional Health Concerns Infection Onset Date Last Indicated Resolved Time R/O COVID-19 01/03/2022 01/03/2022 01/08/2022 22:1 5 EDT R/O COVID-19 06/20/2023 06/20/2023 06/21/2023 0:18 EDT documented as of this encounter Care Teams Passenger Tire Inspector Relationship Specialty Start Date End Date Nicky Brewster MD [address] [place] [address] PCP - General 12/24/16 documented as of this encounter
--- OUTSIDE RECORDS SUMMARY | 2024-05-28 10:37 | XMS_ITS | Encounter Summary ---
Author Organization [facility] Address [address] [place] [address] Care Team Providers Care Assisted Living Assistant Name Role Phone Nicky Brewster MD Primary Care Provider [phone] Encounter Details Date Type Department Care Team (Late st Contact Info) Description 12/11/2020 Results Only [facility] Lab - Main [address] [address] Unknown, Provider, Social History Tobacco Use Types [...] Procedure Name Priority Date/Time Associated Diagnosis Comments QUANTIFERON TB GOLD PLUS Routine 12/11/2020 13:11 EST HEPATITIS B SURFACE ANTIBODY Routine 12/11/2020 13:11 EST documented in this encounter Results * QUANTIFERON TB GOLD PLUS (12/11/2020 13:11 EST) Pathologist [facility] [facility] NIL Result 7.94 () IU/mL 12/14/2020 13:[address] [facility] Quantiferon Interpretation Negative Negative 12/14/2020 13:[address] [facility] Comment: No interferon-gamma response to M. tuberculosis antigens was detected. Infection with M. tuberculosis is unlikely. A single negative result does not exclude infection with M. tuberculosis. In patients at high risk for M.tuberculosis infection, a second test should be considered in accordance with the 2017 ATS/IDSA/CDC Clinical Practice Guidelines for Diagnosis of Tuberculosis in Adults and Children [Austin MORALES et. al. Clin. Infect. Dis. 2017;64(2):111-115]. The reference range for the 'TB1 Ag minus Nil Result' and 'TB2 Ag minus Nil Result' is an Interferon-gamma level <0.35 IU/mL. NIL Result 0.01 () IU/mL 12/14/2020 13:[address] [facility] Comment: Test Performed by: [place] [address] Parts Department Manager: Vincent Hall M.D. Ph.D.; CLIA# [id number] TB1 Ag minus Nil 0.03 () IU/mL 12/15/19 13:59 [facility] TB2 Ag minus Nil 0.01 () IU/mL 12/15/19 13:59 [facility] 12/11/2020 13:1 1 EST 12/11/2020 13:[address] [facility] - 12/14/2020 13:59 EST Does PT Have a Latex Allergy? YES Provider Unknown MD CHEMISTRY & BLOOD GA S ORDERABLES Performing Organization Address City/State/[facility] Co de Phone Number [facility] [address] [place] [address] * HEPATITIS B SURFACE ANTIBODY (12/11/2020 13:11 EST) [facility] Hep B Surface Ab, Qualitative 0 12/11/2020 14:[address] [facility] Comment: ?Interpretative Guidelines < 5.00 mIU/mL = ?Negative Clinical Interpretation of Immune Status: Patient is considered to be not immune to infection with HBV. The results of this assay can be falsely lowered due to the consumption of Biotin. 12/11/2020 13:1 1 EST 12/11/2020 13:[address] [facility] - 12/11/2020 14:58 EST Does PT Have a Latex Allergy? YES Provider Unknown CHEMISTRY & BLOOD GA S ORDERABLES Performing Organization Address City/State/[facility] Co de Phone Number [facility] [address] [place] [address] documented in this encounter Visit Diagnoses Not on filedocumented in this encounter Care Teams Assisted Living Assistant Relationship Specialty Start Date End Date Nicky Brewster MD [address] [place] [address] PCP - General 12/24/16 documented as of this encounter
--- OUTSIDE RECORDS SUMMARY | 2024-05-28 10:37 | XMS_ITS | Encounter Summary ---
Author Organization [facility] Address [address] [place] [address] Care Team Providers Care Insect Control Aide Name Role Phone Nicky Brewster MD Primary Care Provider [phone] Encounter Details Date Type Department Care Team (Late st Contact Info) Description 01/11/2021 Results Only [facility] - [facility] [address] [place] [id number] [place] [address] [place] [address] [address] [place], [place] [address] Social History Tobacco Use Types Packs/Day Years [...] Date/Time Associated Diagnosis Comments COVID-19 TESTING Routine 01/11/2021 9:10 EDT documented in this encounter Results * COVID-19 TESTING (01/11/2021 9:10 EDT) Performing Lab [place] [facility] () 01/12/2021 3:43 EDT [facility] Comment: Please indicate the Triage Tier1 Test performed or referred by The [address] [address] COVID-19 rt-PCR Result Not Detected Negative 01/12/2021 3:43 EDT [facility] Comment: This test has not [...] history, and epidemiological information. Performed on the [employer] [place] Fusion instrument 01/11/2021 9:10 EDT 01/11/2021 11:31 EDT Nicky Greer MD MICROBIOLOGY - GENER AL ORDERABLES Performing Organization Address City/State/[facility] Co de Phone Number [facility] [address] [place] [address] documented in this encounter Visit Diagnoses Not on filedocumented in this encounter Care Teams Insect Control Aide Relationship Specialty Start Date End Date Nicky Brewster MD [address] [place] [address] PCP - General 12/24/16 documented as of this encounter
--- OUTSIDE RECORDS SUMMARY | 2024-05-28 10:37 | XMS_ITS | Encounter Summary ---
Author Organization [facility] Address [address] [place] [address] Care Team Providers Care Senior Sql Database Developer Name Role Phone Nicky Brewster MD Primary Care Provider [phone] Reason for Visit * Reason Comments COVID-19 Encounter Details Date Type Department Care Team (Late st Contact Info) Description 01/11/2021 9:00 EDT Office Visit [facility] - [facility] - Mobile Testing Department [address] [place] [id number] Nurse, [facility] Mobile Testing Screening for viral disease (Primary Dx) Social History Tobacco Use Types [...] :56 EDT documented as of this encounter Progress Notes * Mitzy Martell MA - 01/11/2021 0900 EDT SWABBED BY ARRON RN documented in this encounter Plan of Treatment Not on file documented as of this encounter Visit Diagnoses Diagnosis Screening for viral disease- Primary Special screening examination for unspecified viral disease documented in this encounter Care Teams Senior Sql Database Developer Relationship Specialty Start Date End Date Nicky Brewster MD [address] [place] [address] PCP - General 12/24/16 documented as of this encounter
--- OUTSIDE RECORDS SUMMARY | 2024-05-28 10:37 | XMS_ITS | Clinical Summary ---
Author Organization [facility] [place] [address] Care Team Providers Care Data Control Clerk Supervisor Name Role Phone Nicky Brewster MD Primary Care Provider [phone] Allergies Active Allergy Reactions Criticality Noted Date Comments Amoxicillin-Pot Clavulanate 11/08/2016 Allergenic Extracts 11/08/2016 Cholestyramine (Bulk) Other (See Comments) 10/16 Leukocytoclastic vasculitis Dog Hair Standardized Allergenic Extract 11/08/2016 Doxycycline Other (See Comments) 11/08/2016 Sensitive Facial Mask 11/08/2016 Sumatriptan Succinate Palpitations 11/08/2016 Ivermectin Other (See Comments) 11/08/2016 Leukocytoclastic Vasculitis Latex Itching 11/08/2016 Swelling Other reaction(s): itching Methocarbamol Other (See Comments) 11/08/2016 Sexual Dysfunction Montelukast Other (See Comments) 11/08/2016 Facial pruritis, increased depressive symptoms Ibuprofen Itching 11/08/2016 swelling Penicillins High 10/14/2012 Pollen Extracts 11/08/2016 Tree Nut Anaphylaxis High 11/08/2016 Venlafaxine Other (See Comments) 11/08/2016 Hallucination and unable to sleep Other reaction(s): Unknown Bupropion Hcl Other (See Comments) 11/08/2016 Hallucination and unable to sleep Medications Medication Sig Dispensed Refills Start Date End Date Status traMADol (ULTRAM) 50 mg tablet Take 50 mg by mouth 2 times daily as needed. One or two tablets Active meclizine (ANTIVERT) 25 mg tablet Take 25 mg by mouth 3 times daily as needed. Reported on 11/08/2016 Active ergocalciferol (ERGOCALCIFEROL) 50,000 unit capsule Take 50,000 Units by mouth every 14 days. Active Cholecalciferol, Vitamin D3, (VITAMIN D) 1,000 unit Cap Take by mouth. Active epiNEPHrine (EPIPEN) 0.3 mg/0.3 mL (1:1,000) injectionIndicatio ns:Allergy to tree nuts Inject 0.3 mLs into the muscle once as needed for 1 dose. 0.3 mL 1 02/03/2013 Active loratadine (CLARITIN REDITABS) 10 mg dissolvable tabletIndications: Allergy to tree nuts,Rhinitis, allergic Take 1 tablet by mouth daily. 30 tablet 5 02/03/2013 Active OMNARIS 50 mcg [place], Non-Aerosol USE 2 SPRAYS IN EACH NOSTRIL ONCE DAILY 2 08/24/2016 Active esomeprazole (NEXIUM) 20 mg Capsule, Delayed Release(E.C.) TAKE ONE CAPSULE BY MOUTH EVERY DAY 3 10/18/2016 Active sucralfate (CARAFATE) 1 gram Tablet TAKE ONE TABLET BY MOUTH EVERY MORNING TAKE ONE TABLET AT NOON ONE TABLET EARLY EVENING AND ONE TABLET AT BEDTIME BEFORE MEALS FOUR TI 1 07/04/2016 Active celecoxib (CELEBREX) 200 mg Capsule Take 200 mg by mouth daily. Active lidocaine (XYLOCAINE) 5 % Ointment Use liberally qhs prn 50 g 11/08/2016 Active citalopram (CELEXA) 10 mg Tablet TAKE ONE TABLET BY MOUTH EVERY DAY 1 12/18/2016 Active clindamycin (CLINDAGEL) 1 % Gel APPLY TO AFFECTED AREA S TWO TIMES A DAY ON LOWER ABDOMEN 3 03/24/2017 Active diphenhydrAMINE (BENADRYL) 25 mg Capsule TAKE ONE CAPSULE BY MOUTH AT BEDTIME 1 04/02/2017 Active colestipol (COLESTID) 1 gram Tablet TAKE ONE TO TWO TABLETS BY MOUTH TWICE A DAY 5 05/11/2017 Active fluconazole (DIFLUCAN) 150 mg Tablet Take one tablet by mouth every week for 2 doses 2 tablet 08/16/[address] (Cymbalta) 30 mg Capsule, Delayed Release(E.C.) TAKE ONE CAPSULE BY MOUTH EVERY DAY INCREASE TO TWO TIMES A DAY IN 2 WEEKS 08/27/2020 Active levonorgestreL (MIRENA) 20 mcg/24 hours (6 yrs) 52 mg IUD 1 ea by intrauteral administration once Active Benzoyl Peroxide 5 % Lotion 1 ayad applied topically 2 times a day Active hydrOXYchloroQUINE (Plaquenil) 200 mg Tablet 1 tab(s) orally once a day 03/07/2010 Active spironolactone (Aldactone) 100 mg Tablet 1 tab(s) orally once a day Active ketoconazole (NIZORAL) 2 % Cream Apply 1-2 times daily to the areas of dry scaling skin and dermatitis 30 g 2 11/01/2020 Active Active Problems Problem Noted Date Diagnosed Date Hidradenitis suppurativa 04/16/2017 Acne vulgaris 04/16/2017 Hirsutism 04/16/2017 Fibromyalgia 02/03/2013 Dyspepsia 10/14/2012 Encounters Date Type Department Care Team Description 03/18/2024 Orders Only [place] [address] Jazmín Zarate APRN from Last 3 Months Immunizations Name Administration Dates Next Due Hepatitis B Recombinant, Adjuvanted (HepLisav-B) 02/05/2024 Influenza Vaccine, Whole 08/28/2008 Social History Tobacco Use Types Packs/Day Years Used Date Smoking Tobacco: Never Smokeless Tobacco: Never Alcohol Use Standard Drinks/Week Comments No 0 (1 standard drink = 0.6 oz pur e alcohol) Sex and Gender Information Value Date Recorded Sex Assigned at Not on file Gender Identity Not on file Sexual Orientation Not on file Last Filed Vital Signs Vital Sign Reading Time Taken Comments Blood Pressure 115/75 11/08/2016 11:45 AM EST Pulse 106 11/08/2016 11:45 AM EST Temperature 36.9 ??C (98.4 ??F) 02/03/2013 5:07 PM ED T Respiratory Rate 16 02/03/2013 6:00 PM EDT Oxygen Saturation 100% 02/03/2013 6:00 PM EDT Inhaled Oxygen Concentration - - Weight 120 kg (264 lb 9.6 oz) 11/08/2016 11:45 A M EST Height 160.7 cm (5' 3.25) 11/08/2016 11:[address] Body Mass Index 46.5 11/08/2016 11:45 AM EST Plan of Treatment Health Maintenance Due Date Last Done Comments CT Colonography 1978 Colonoscopy 1978 Colorectal Cancer Screening 1978 FIT DNA 1978 FIT 1978 Sigmoidoscopy (10 year) with FIT yearly 1978 Sigmoidoscopy 1978 HIV screen 1996 Hepatitis C Screening 1996 Tdap adult 1997 Tetanus vaccine 1997 HPV test 2008 PAP Smear 2008 Breast Cancer Share Decision Needed 2018 Breast Cancer screening 2018 Covid-19 Vaccine ( season) 2023 Influenza (Flu) vaccine (1 o f 1 - Influenza standard series) 06/15/2024 08/28/2008 Procedures Procedure Name Priority Date/Time Associated Diagnosis Comments HEPATITIS B SURFACE ANTIBODY Routine 03/18/2024 5:33 PM EDT from Last 3 Months Results * Hepatitis B Surface Antibody (03/18/2024 5:33 PM EDT) Hepatitis B Surface Antibody, Quantitative 91.4 IU/L [facility] Comment: HepB Surface Ab Quant: Unvaccinated: < 8.5 IU/L Vaccinated: >= 11.5 IU/L Hepatitis B Surface Antibody Positive [facility] Comment: Patient is considered to be immune to HBV infection. Expected Results: Vaccinated: Positive Unvaccinated: Negative Blood Venous Draw / Unknown 03/18/2024 5:33 PM EDT 03/18/2024 5:42 PM EDT Narrative Resulting Agency Comment Spec In Lab Jazmín Zarate STATE INSPECTOR CHEMISTRY ORDERABLES [facility] [place] [address] from Last 3 Months Care Teams Data Control Clerk Supervisor Relationship Specialty Start Date End Date Nicky Brewster MD [address] [place] [address] PCP - General Family Medicine 07/25/16
--- OUTSIDE RECORDS SUMMARY | 2024-05-28 10:37 | XMS_ITS | Encounter Summary ---
Author Organization [facility] Address [address] [place] [address] Care Team Providers Care Imaging Services Director Name Role Phone Nicky Brewster MD Primary Care Provider [phone] Encounter Details Date Type Department Care Team (Late st Contact Info) Description 01/08/2018 Historical Results Only [facility] [place] [address] [place] [id number] Blanca Grove MD [address] [place] [address] [address] [place] [address] [phone] Social History Tobacco Use Types Packs/Day Years [...] Procedure Name Priority Date/Time Associated Diagnosis Comments VIT D, 25-HYDROXY - [facility] Routine 01/08/2018 16:56 EDT COMPLETE BLOOD COUNT WITH DIFFERENTIAL (AUTO) Routine 01/08/2018 16:56 EDT VITAMIN B12 Routine 01/08/2018 16:56 EDT COMPREHENSIVE METABOLIC PANEL (CMP) Routine 01/08/2018 16:56 EDT documented in this encounter Results * (ABNORMAL) COMPREHENSIVE METABOLIC PANEL (CMP) (01/08/2018 16:56 EDT) [facility] Albumin % 3.9 3.4 - 4.9 g/dL 01/08/2018 17:51 [facility] ALKALINE PHOSPHATASE - [facility] 82 38 - 126 U/L 01/08/2018 17:51 [facility] BILIRUBIN TOTAL <0.2(L) 0.2 - 1.3 mg/dL 01/08/2018 18:14 [facility] BUN - [facility] 11 10 - 26 mg/dL 01/08/2018 17:51 [facility] CALCIUM - [facility] 9.4 8.5 - 10.5 mg/dL 01/08/2018 17:51 [facility] Chloride 107 96 - 110 mmol/L 01/08/2018 17:51 [facility] CO2 Total 22 22 - 32 mEq/L 01/08/2018 17:51 [facility] CREATININE 0.59 0.52 - 1.04 mg/dL 01/08/2018 17:51 [facility] eGFR >60 01/08/2018 17:51 [facility] Comment: Chronic renal impairment is defined as GFR <60 Multiply result by 1.210 for patients. eGFR calculated using the IDMS-traceable MDRD Study Equation. ??(effective 08/17/2014) Anion Gap 14 0 - 18 01/08/2018 17:51 [facility] GLUCOSE - [facility] 111(H) 70 - 100 mg/dL 01/08/2018 17:51 [facility] Potassium 4.0 3.5 - 5.0 mEq/L 01/08/2018 17:51 [facility] Sodium 143 136 - 145 mEq/L 01/08/2018 17:51 [facility] TOTAL PROTEIN - [facility] 7.3 6.2 - 8.2 gm/dL 01/08/2018 17:51 EDT [facility] SGOT/AST - [facility] 16 14 - 36 U/L 01/08/2018 17:51 EDT [facility] SGPT/ALT - [facility] 25 9 - 52 U/L 8 17:51 EDT [facility] 01/08/2018 16:5 6 EDT 01/08/2018 16:56 EDT Narrative [facility] - 01/08/2018 18:14 EDT Does PT Have a Latex Allergy? YES Blanca Grove MD CHEMISTRY & BLOOD GA S ORDERABLES Performing Organization Address [facility] Co de Phone Number [facility] * (ABNORMAL) VIT D, 25-HYDROXY - [facility] (01/08/2018 16:56 EDT) Pathologist [facility] VIT D, 25 HYDROXY - [facility] 25.2(L) 30 - 100 ng/ml 01/08/2018 18:38 EDT [facility] Comment: ? 25-Hydroxy D Total (D2+D3) ?Expected Values Deficient: ?<20 ng/ml Insufficient: ? 20- <30 ng/ml Sufficient: ? 30-100 ng/ml Potential intoxication: >100 ng/ml 01/08/2018 16:5 6 EDT 01/08/2018 16:57 EDT Narrative [facility] - 01/08/2018 18:38 EDT Does PT Have a Latex Allergy? YES Blanca Grove MD CHEMISTRY & BLOOD GA S ORDERABLES Performing Organization Address [facility] Co de Phone Number [facility] * VITAMIN B12 (01/08/2018 16:56 EDT) VITAMIN B12 - [facility] 560 239 - 931 pg/mL 01/08/2018 18:38 EDT [facility] 01/08/2018 16:5 6 EDT 01/08/2018 16:57 EDT Narrative [facility] - 01/08/2018 18:38 EDT Does PT Have a Latex Allergy? YES Blanca Grove MD CHEMISTRY & BLOOD GA S ORDERABLES [facility] * (ABNORMAL) COMPLETE BLOOD COUNT WITH DIFFERENTIAL (AUTO) (01/08/2018 16:56 EDT) ABSOLUTE NEUTROPHIL COUN - [facility] 6.13 1.7 - 7.0 10e3/ul 01/08/2018 17:58 EDT [facility] BASO # - [facility] 0.01 0.0 - 0.3 10e3/uL 01/08/2018 17:58 EDT [facility] BASO % - [facility] 0 0 - 2 % 01/08/2018 17:58 EDT [facility] EOS # - [facility] 0.23 0.05 - 0.5 10e3/uL 01/08/2018 17:58 EDT [facility] EOS % - [facility] 2 0 - 5 % 01/08/2018 17:58 EDT [facility] GRAN % - [facility] 61 40 - 80 % 01/08/2018 17:58 EDT [facility] HEMATOCRIT - [facility] 38.5 34.0 - 47.0 % 01/08/2018 17:58 EDT [facility] HEMOGLOBIN - [facility] 12.7 11.2 - 15.7 g/dl 01/08/2018 17:58 EDT [facility] IG# - [facility] 0.03 0 - 0.07 10e3/uL 01/08/2018 17:58 EDT [facility] IG% - [facility] 0.3 0 - 0.9 % 01/08/2018 17:58 EDT [facility] LYMPH # - [facility] 3.09(H) 0.9 - 2.9 10e3/uL 01/08/2018 17:58 EDT [facility] LYMPH% - [facility] 31 20 - 40 % 01/08/2018 17:58 [facility] MEAN CORPUSCULAR HGB - [facility] 28.5 26 - 34 pg 01/08/2018 17:58 [facility] MEAN CORPUSCULAR HGB CONC - [facility] 33.0 31 - 36 g/dL 01/08/2018 17:58 [facility] MEAN CELL VOLUME - [facility] 86.5 77 - 100 fl 01/08/2018 17:58 [facility] MONO # - [facility] 0.60 0.3 - 0.9 10e3/uL 01/08/2018 17:58 [facility] MONO% - [facility] 6 0 - 12 % 01/08/2018 17:58 [facility] PLATELET COUNT 308 150 - 400 10e3/ul 01/08/2018 17:58 [facility] RED BLOOD COUNT - [facility] 4.45 3.8 - 5.2 10e6/ul 01/08/2018 17:58 [facility] RED CELL DISTRI WIDTH - [facility] 14.4 11.8 - 15.6 % 01/08/2018 17:58 [facility] WHITE BLOOD COUNT - [facility] 10.1 3.5 - 10.5 10e3/ul 01/08/2018 17:58 [facility] 01/08/2018 16:5 6 EDT 01/08/2018 16:57 EDT Narrative [facility] - 01/08/2018 17:58 EDT Does PT Have a Latex Allergy? YES Blanca Grove MD HEMATOLOGY & PF4 ORD ERABLES [facility] documented in this encounter Visit Diagnoses Not on filedocumented in this encounter Care Teams Imaging Services Director Relationship Specialty Start Date End Date Nicky Brewster MD [address] [place] [id number] PCP - General 12/24/16 documented as of this encounter
--- OUTSIDE RECORDS SUMMARY | 2024-05-28 10:37 | XMS_ITS | Encounter Summary ---
Author Organization [facility] Address [address] [place] [address] Care Team Providers Care Process Safety Manager Name Role Phone Nicky Brewster MD Primary Care Provider [phone] Encounter Details Date Type Department Care Team (Late st Contact Info) Description 07/03/2019 Results Only [facility] [phone] Reese Akbar, [address] [place], [place] [id number] Social History Tobacco Use Types Packs/Day Years [...] Date/Time Associated Diagnosis Comments SURGICAL PATHOLOGY Routine 07/03/2019 16 :57 EDT documented in this encounter Results * SURGICAL PATHOLOGY (07/03/2019 16:57 EDT) Pathology Report: SURGICAL PATHOLOGY REPORT Reports generated via electronic interface contain original data; however they are lacking the format of the original report. Caution should be taken when reading/interpret ing unformatted reports. Name: ? CYN FERRERA ? Accession #: ? [id number] ? : ? 1980 (Age: 39) ??F ? Collect Date: ? 07/03/2019 ? Location: ? [facility] ? Receive Date: ? 07/04/2019 ? Provider: REESE AKBAR DO Copy to: NICKY BREWSTER MD ? Final Pathologic Diagnosis: A. TONSIL, RIGHT, TONSILLECTOMY: - Tonsillar tissue with: ? - Reactive lymphoid follicular hyperplasia. ? - Focal reactive squamous epithelium with parakeratosis. - Portions of benign skeletal muscle. B. TONSIL, LEFT, TONSILLECTOMY: - Tonsillar tissue with: ? - Reactive lymphoid follicular hyperplasia. ? - Focal acute and chronic inflammation. - Portions of benign skeletal muscle. Document reviewed and electronically signed by: Jennifer Sheriff MD Report ??Date: 07/12/2019 11:47 By the signature above, the attending physician certifies that he/she has personally conducted a gross and/or microscopic examination of the described specimens and rendered or confirmed the above diagnosis. Specimen(s) Received: A. ??Right tonsil B. ??Left tonsil Clinical History: Chronic tonsillitis; clinical diagnosis code: ??J35.01, J35.8 Gross Description: A. ?Received in formalin labelled with proper patient identification (initials M, A) and right tonsil is a palatine tonsil (2.5 x 1.6 x 1.1 cm). The mucosa is smooth to focally ragged and glistening with prominent crypts. ?? Serial sections reveal lobular homogeneous tissue without abnormality. ??A bank representative section is submitted as A1. B. ?Received in formalin labelled with proper patient identification (initials M, A) and left tonsil is a palatine tonsil (three point 2 x 2 0.4 x 1.2 cm). ??The mucosa is smooth and glistening with prominent crypts. ?? Serial sections reveal lobular homogeneous tissue without abnormality. ??A bank representative section is submitted as B1. BOOKER Crisostomo (ASCP) 07/07/2019 8:16 AM End of Report [facility] 07/03/2019 16:5 7 EDT 07/04/2019 16:57 EDT Reese Akbar DO PATHOLOGY ORDER TATYANA [facility] [address] [place] [address] documented in this encounter Visit Diagnoses Not on filedocumented in this encounter Care Teams Process Safety Manager Relationship Specialty Start Date End Date Nicky Brewster MD [address] [place] [phone] PCP - General 12/24/16 documented as of this encounter
--- OUTSIDE RECORDS SUMMARY | 2024-05-28 10:37 | XMS_ITS | Encounter Summary ---
Author Organization [facility] Address [address] [place] [address] Care Team Providers Care Senior Oracle Database Developer Name Role Phone Nicky Brewster MD Primary Care Provider [phone] Reason for Visit * Reason Onset Date Comments Other 01/10/2021 Encounter Details Date Type Department Care Team (Late st Contact Info) Description 01/10/2021 Telephone [facility] - [facility] Testing Department [address] [place] [id number] Ally Grant RN Other Social History Tobacco Use Types Packs/Day Years [...] encounter Miscellaneous Notes * Telephone Encounter - Ally Grant RN - 01/10/2021 8287 EDT This patient is calling the [facility] COVID-19 information center with concern for COVID-19. The patient has had congestion , fatigue, fever and headache for 2 days. COVID-19 testing is indicated according to current [facility] algorithm. The patient has been previously tested for Covid-19. 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 If patient is a [facility] Employee Covid Test was ordered for the following reason: Symptomatic Patient is not immunocompromised. The patient is not a resident of a group home or assisted living facility. (If patient is, home health will facilitate testing once ordered). Patient was not offered a telehealth visit with their PCP or [facility] provider to further discuss symptoms and patient This patient is currently stable, and was advised to go to the ER or call 911 with any worsening symptoms. COVID-19 Home Instructions COVID-19 is caused by a virus, spread mainly by close contact, being within 6 feet of a person withthe illness, especially if both persons aren't wearing a mask and are indoors. Prevention measures include limiting contacts with persons that aren't in your household, wearing amask and maintaining at least 6 feet distance when you are around someone that isn't from your household, covering your cough or sneeze, and practicing good handwashing. Wiping down surfaces that aretouched regularly is recommended as well. Common symptoms include cough, fever, shortness of breath, nasal congestion, fatigue, muscle aches,headaches, loss of taste and/or smell, nausea, vomiting and/or diarrhea. If you are ill or think you might be ill with COVID-19, we recommend getting plenty of rest, staying hydrated, and managing symptoms. You may take Tylenol or ibuprofen for body aches and fevers, though we recommend checking with your PCP prior to taking over the counter medications if you have chronic medical conditions. It is important to seek medical care if you have worsening symptoms of shortness of breath, weakness, dizziness, or have symptoms that persist or are worsening after 14 days. Please contact your PCP office or our [facility] clinic if symptoms worsen or persist beyond 14 days. Call for immediate care if you have a true medical emergency. What do I do while I'm waiting for my test result? You should self-isolate, which means stay at home and separate yourself from others. Do not leave your home, ie: do not go to the grocery store, pharmacy, non-emergency medical appointments, or to visit friends or family. If you might have been exposed to COVID-19 (ie: travel to a high-risk area, exposure to someone with a possible or known COVID positive case), you should self-isolate as well, for 14 days following exposure, or for 7 days with negative COVID-19 test. You may discontinue self-isolation when: You have a negative test or you are fever free for 24 hours without fever reducing medication AND 10 days have passed since your symptoms started AND your symptoms are improving. How will I get my test results? A nurse from the call center will call with your test results, typically within 3-4 days of the test. Log into your patient portal, [employer] to be notified immediately of your result by email. Ask for more information about MyChart at the testing site. You will also be given educational information at the testing site. If you test positive, you will be getting more information from an clinician about when and how to follow up with a healthcare provider. Please visit the [facility] and the [place] [facility] website for more information. documented in this encounter Plan of Treatment Not on file documented as of this encounter Visit Diagnoses Diagnosis Suspected 2019-nCoV infection- Primary documented in this encounter Care Teams Senior Oracle Database Developer Relationship Specialty Start Date End Date Nicky Brewster MD [address] [place] [id number] PCP - General 12/24/16 documented as of this encounter
--- OUTSIDE RECORDS SUMMARY | 2024-05-28 10:37 | XMS_ITS | Encounter Summary ---
[place] [address] Care Team Providers Care Bandsaw Operator Name Role Phone Nicky Brewster MD Primary Care Provider [phone] Reason for Referral * Consultation (Routine) - Closed Specialty Diagnoses / Procedures Referred By Marisol avila Referred To Contact Neurology Diagnoses Postconcussion syndrome Memory deficit Nicky Brewster MD [address] [place] [address] [facility] [address] [place] [phone] Referral ID Status Reason Start Date Expiration Date V isits Requested Visits Authorized [id number] Closed Consult, Test & Treat PCP Updated and/or Approved 03/07/2022 03/07/2023 12 12 Encounter Details Date Type Department Care Team (Latest Contact Info) Description 03/07/2022 Transcribe Orders eDH Incoming Referrals [phone] Nicky Brewster MD [address] [place], [place] [address] Postconcussion syndrome; Memory deficit Social History Tobacco Use Types Packs/Day Years [...] Associated Diagnoses Orde r Schedule Referral to Neurology Outpatient Referral Routine Postconcussion syndrome Memory deficit Ordered: 03/07/2022 documented as of this encounter Visit Diagnoses Diagnosis Postconcussion syndrome Memory deficit Memory loss documented in this encounter Care Teams Bandsaw Operator Relationship Specialty Start Date End Date Nicky Brewster MD [address] [place] [address] PCP - General Family Medicine 07/25/16 documented as of this encounter
--- OUTSIDE RECORDS SUMMARY | 2024-05-28 10:37 | XMS_ITS | Encounter Summary ---
[place] [address] Care Team Providers Care Powder Coat Painter Name Role Phone Nicky Brewster MD Primary Care Provider [phone] Reason for Visit * Reason Comments Follow-up Encounter Details Date Type Department Care Team ([facility] st Contact Info) Description 01/03/2018 4:15 PM EDT Office Visit Dermatology at [address] [phone] Royal Isbell MD [address] [place] [address], [facility] [place] [address] Hidradenitis suppurativa; Acne vulgaris; Hirsutism Social History [...] Progress Notes * Royal Isbell MD - 01/03/2018 4:15 PM EDT Problem: 1. Follow-up hidradenitis suppurativa 2. Adult acne 3. Hirsutism Cyn follows up and is doing well things are stable. She was not having any breakouts. She is tolerating the medications well and is quite pleased. She has not yet seen major improvement in terms of decreased hair growth on her chin and mid jawline of her cheeks. Physical examination was a pleasant 37-year-old woman who has type V Elizalde pigmentation. She has no active areas in either inguinal fold nor on the face. She continued continues to have mild hirsutism of her chin but no active acne across the jawline Assessment plan: Hidradenitis suppurativa, limited to the groin area 1. Doing much better with topical therapies benzyl peroxide to 5% in the morning, clindamycin 1% cream in the evening. I be happy to refill these as she needs 2. Doing well also spironolactone 100 mg 1 p.o.daily Adult acne 1. Continue spironolactone as she is as noted above. 2. Return to clinic in 6 months for repeat check Hirsutism 1. Patient reassured that I would expect gradual improvement with spironolactone. 2. I have I am not sure she is taking even once a day but encouraged her to do so religiously return the clinic here in 6 months for repeat check Cc: Nicky Brewster MD documented in this encounter Plan of Treatment Not on file documented as of this encounter Visit Diagnoses Diagnosis Hidradenitis suppurativa Hidradenitis Acne vulgaris Other acne Hirsutism documented in this encounter Care Teams Powder Coat Painter Relationship Specialty Start Date End Date Nicky Brewster MD [address] [place] [address] PCP - General Family Medicine 07/25/16 documented as of this encounter
--- OUTSIDE RECORDS SUMMARY | 2024-05-28 10:37 | XMS_ITS | Encounter Summary ---
[place] [address] Care Team Providers Care Loan Servicing Specialist Name Role Phone Nicky Brewster MD Primary Care Provider [phone] Reason for Visit * Reason Comments Medication Refill Encounter Details Date Type Department Care Team (Late st Contact Info) Description 04/24/2018 Refill Dermatology at [address] [phone] Royal Isbell MD [address] [facility], [facility] A DERMATOLOGY [place], [place] [id number] Social History Tobacco Use Types Packs/Day Years [...] on filedocumented in this encounter Care Teams Loan Servicing Specialist Relationship Specialty Start Date End Date Nicky Brewster MD [address] [place] [address] PCP - General Family Medicine 07/25/16 documented as of this encounter
--- OUTSIDE RECORDS SUMMARY | 2024-05-28 10:37 | XMS_ITS | Encounter Summary ---
Author Organization [facility] [place] [address] Care Team Providers Care Main Line Station Engineer Name Role Phone Maria D Quinones ROBERT Primary Care Provider [phone] Reason for Visit * Reason Comments Allergic Reaction Encounter Details Date Type Department [facility] Description 02/03/2013 4:47 PM EDT - 02/03/2013 7:00 PM EDT [place] [address] Antoine Seth MD [facility] [place] [address] Allergic reaction (Primary Dx) Discharge Disposition: Home Social History Tobacco Use [...] Sign Reading Time Taken Comments Blood Pressure 135/74 02/03/2013 6:00 PM EDT Pulse 78 02/03/2013 6:00 PM EDT Temperature 36.9 ??C (98.4 ??F) 02/03/2013 5:07 PM ED T Respiratory Rate 16 02/03/2013 6:00 PM EDT Oxygen Saturation 100% 02/03/2013 6:00 PM EDT Inhaled Oxygen Concentration - - Weight - - Height - - Body Mass Index - - documented in this encounter Discharge Instructions * Discharge Instructions* Beto Alejandre - 02/03/2013 6:51 PM EDT You have been diagnosed with a mild allergic reaction. Please return to the Emergency Department ifyou experience shortness of breath, increased throat swelling, increased dizziness or any other concerns. You should take [id number] Benadryl as indicated if mild symptoms return and contact your primary care doctor if symptoms persist. * Attachments The following attachments cannot be sent through Care Everywhere. * ALLERGIC REACTION: AFTER YOUR VISIT ([place]TH KOREAN) documented in this encounter Medications at Time of Discharge Medication Sig Dispensed Refills Start Date End Date hydrOXYchloroQUINE (Plaquenil) 200 mg Tablet 1 tab(s) orally once a day 03/07/2010 epiNEPHrine (EPIPEN) 0.3 mg/0.3 mL (1:1,000) injectionIndications:Al lergy to tree nuts Inject 0.3 mLs into the muscle once as needed for 1 dose. 0.3 mL 1 02/03/2013 loratadine (CLARITIN REDITABS) 10 mg dissolvable tabletIndications:Aller gy to tree nuts,Rhinitis, allergic Take 1 tablet by mouth daily. 30 tablet 5 02/03/2013 traMADol (ULTRAM) 50 mg tablet Take 50 mg by mouth 2 times daily as needed. One or two tablets meclizine (ANTIVERT) 25 mg tablet Take 25 mg by mouth 3 times daily as needed. Reported on 11/08/2016 ergocalciferol (ERGOCALCIFEROL) 50,000 unit capsule Take 50,000 Units by mouth every 14 days. Cholecalciferol, Vitamin D3, (VITAMIN D) 1,000 unit Cap Take by mouth. clindamycin-benzoyl peroxide (BENZACLIN) 1-5 % gelIndications:Acne Apply a pea sized amount to face every other day working up to daily as tolerated. Rx can bleach fabrics 25 g 12 02/03/2013 11/08/2016 naproxen (NAPROSYN) 500 mg tablet Take 500 mg by mouth 2 times daily (with meals). Reported on 11/08/2016 11/08/2016 hydroxychloroquine (PLAQUENIL) 200 mg tablet Take by mouth 2 times daily. 11/01/2020 Cyanocobalamin 1,000 mcg/mL Syrg Inject 1,000 mcg as directed every 30 days. 11/01/2020 documented as of this encounter ED Notes * Veronica Loya RN - 02/03/2013 6:27 PM EDT No change in status, no increase in hives, itching or tingling. Pending plans and dispo. * Antoine Seth MD - 02/03/2013 6:17 PM EDT Chief Complaint Patient presents with ??? Allergic Reaction HPI The patient is a 32 y.o. woman who presents to the ED with complaints of tongue itching and swelling along with dizziness and spaciness. Cyn had an allergen test completed here at [facility] around 13:00 for dog, cat and other environmental allergens. Following the test, around 14:00, she developed the previously listed symptoms. She also ate a turkey sandwich with avacado shortly after developing the symptoms and believes that the avacado may have contributed to her condition as she is allergic to walnuts and wonders if there is a cross- interaction between the two. Since her test, the patient has taken loratadine 10 mg x2 and has noticed a significant decrease in her symptoms since. No SOB, wheezing, throat tightness, other itching or urticarial lesions cited. Other allergies include penicillins. Please see the rest of the EMR for PMHx, surgeries and medications. Allergies Allergen Reactions ??? Penicillins Review of Systems Constitutional: Negative for fever, chills, activity change and appetite change. HENT: Negative for congestion, sore throat, drooling, trouble swallowing, neck pain and neck stiffness. Eyes: Negative for visual disturbance. Respiratory: Negative for cough, choking, chest tightness, shortness of breath and wheezing. Cardiovascular: Negative for chest pain and leg swelling. Gastrointestinal: Negative for nausea, vomiting, abdominal pain and diarrhea. Musculoskeletal: Negative for arthralgias. Skin: Negative for pallor and rash. Neurological: Positive for dizziness and headaches. Negative for syncope. Hematological: Negative for adenopathy. Filed Vitals: 02/03/13 1800 BP: 135/74 Pulse: 78 Temp: Resp: 16 Physical Exam Nursing note and vitals reviewed. Constitutional: Obese middle-aged woman resting comfortably in bed in NAD and on RA. HENT: Head: Atraumatic. Mouth/Throat: No oropharyngeal exudate. No significant oropharyngeal swelling appreciated. Eyes: Conjunctivae and EOM are normal. Neck: Normal range of motion. Neck supple. Cardiovascular: Normal rate and regular rhythm. No murmur heard. Heart sounds distant. Pulmonary/Chest: Effort normal and breath sounds normal. No respiratory distress. She has no wheezes. Abdominal: Soft. She exhibits no distension. There is no tenderness. Musculoskeletal: She exhibits no edema and no tenderness. Neurological: She is alert. Skin: Skin is warm and dry. No rash noted. Procedures MDM The patient is a 32 y.o. woman presenting with reports of allergic reaction following an allergen test with symptoms of tongue pruritis, mild throat tightness and dizziness. Reassuringly, the patienthad no SOB, wheezing, other adventitious breath sounds and had resolution of her symptoms in the ED. This classifies her as a mild allergic reaction case. She will not be treated with further anti-histamines or steroids. Assessment: Mild allergic reaction ED Course: -The patient was interviewed and examined at approx. 18:15. Her case was discussed with Dr. Seth. -The patient was discharged home after experiencing resolution of her symptoms while in the ED. Shedeparted the ED in stable condition and in agreement with the plan to purchase OTC Benadryl in caseher symptoms worsen and to follow-up with her PCP. Beto Alejandre MD Resident 02/03/13 121 ED ATTENDING NOTE: I reviewed Dr. Alejandre's note and agree with the michael portions of the documented findings and plan of care with the exception of any additions and/or changes I noted or added. I performed an independent history and physical exam myself. Pt has no evidence of severe reaction or needfor further intervention. No airway compromise, vital signs have been good throughout her ED stay. Antoine Seth MD 02/03/13 [id number] * Veronica Loya RN - 02/03/2013 5:59 PM EDT Pt w/ no change in status. No increase in itching, pending MD james. Advised pt to take her loratidine (claritin) that the MD gave her after allergy testing, pt took her own med. * Veronica Loya RN - 02/03/2013 5:39 PM EDT No change in status. * Veronica Loya RN - 02/03/2013 5:14 PM EDT Pt has no rash, no hives, no raised areas, no oral documented in this encounter Miscellaneous Notes * Discharge Summary - Provider, Scanning - 02/04/2013 9:41 AM EDT * Miscellaneous - Provider, Scanning - 02/03/2013 9:39 PM EDT * ED Triage - Veronica Loya RN - 02/03/2013 5:08 PM EDT Pt attended her clinic visit w/ allergy testing today earlier, she was then went to [facility] for appt, after she consumed turkey sandwich w/ avocado and developed tingling sensation in her mouth, palm of her hand and radiating upward to her shoulder. A&OX3. Skin w/p/d. NAD. Lungs BCTA, heart RRR - NSR on monitor, s/sx resolving during triage. She has allergy to walnuts, can this rika cross contamination of allergy responses from walnuts to avocados? I think it might be. documented in this encounter Plan of Treatment Not on file documented as of this encounter Visit Diagnoses Diagnosis Allergic reaction- Primary Allergy, unspecified not elsewhere classified documented in this encounter Care Teams Main Line Station Engineer Relationship Specialty Start Date End Date Maria D Quinones APRN PCP - General 01/24/13 07/24/16 documented as of this encounter
--- OUTSIDE RECORDS SUMMARY | 2024-05-28 10:37 | XMS_ITS | Encounter Summary ---
Author Organization [facility] Address [address] [place] [address] Care Team Providers Care Product Safety Compliance Leader Name Role Phone Unavailable Primary Care Provider Unavailabl e Encounter Details Date Type Department Care Team (Late st Contact Info) Description 06/03/2007 Results Only [facility] - Maple conversion [address] [place] [address] Pretty Rose, [facility] [address] [place] [address] Social History Tobacco Use Types [...] Priority Date/Time Associated Diagnosis Comments CYTOPATHOLOGY Routine 06/03/2007 0:00 EDT documented in this encounter Results * CYTOPATHOLOGY (06/03/2007 0:00 EDT) Pathology Report: CYTOPATHOLOGY REPORT Reports generated via electronic interface contain original data; however they are lacking the format of the original report. Caution should be taken when reading/interpreti ng unformatted reports. Name: ? CYN VAZQUEZ ? Accession #: ? [id number] : ? 1980 (Age: 27) ??F ?Collect Date: ? 06/03/2007 Location: ? [facility] ? Receive Date: ? 06/04/2007 Provider: ?PRETTY ROSE SOMMELIER Copy to: ? Specimen/Source: ?ThinPrep Pap Test, Cervix/Endocervix, processed on [employer] ThinPrep Imaging System, with manual evaluation Last Menstrual Period: ? 05/18/07 Other: ? HPVA - HPV testing requested if ASC-US on the current ThinPrep Pap test. ? SPECIMEN ADEQUACY ? Satisfactory for Evaluation - transformation zone component present GENERAL CATEGORIZATION ? Negative for Intraepithelial Lesion or Malignancy ? Document reviewed and electronically signed by: ? PRINCESS Mott(ASCP) ? Report Date: ??06/05/2007 10:24 End of Report BRUNA MARTINEZ 06/03/2007 06/04/2007 Pretty Rose SOMMELIER PATHOLOGY ORDERABLES [facility]ART[facility] [address] [place] [address] documented in this encounter Visit Diagnoses Not on filedocumented in this encounter
--- OUTSIDE RECORDS SUMMARY | 2024-05-28 10:37 | XMS_ITS | Encounter Summary ---
Author Organization [facility] Address [address] [place] [address] Care Team Providers Care Insulating Machine Operator Name Role Phone Nicky Brewster MD Primary Care Provider [phone] Encounter Details Date Type Department Care Team (Late st Contact Info) Description 01/05/2020 Lab Requisition [facility] Pathology & Laboratory Medicine - [facility] [address] [place] [address] Blayne Bergeron MD [address] [place] [phone] Encounter for other general examination Social History [...] Name Priority Date/Time Associated Diagnosis Comments COVID-19 TARKIO Today 01/05/2020 11:15 EDT Encounter for other general examination documented in this encounter Results * SARS CORONAVIRUS 2 RNA DETECTION TARKIO (01/05/2020 11:15 EDT) COVID-19 TARKIO Specimen Source Nasopharynx 01/06/2020 23:27 EDT [facility] COVID-19 MCGRATH Result Undetected Undetected 01/06/2020 23:27 EDT [facility] Comment: SARS-CoV-2 RNA is not detected. ADDITIONAL INFORMATION Testing was performed using the marylou SARS-CoV-2 assay ([employer] on the marylou 6800 System. Fact sheets for this Emergency Use Authorization (EUA) assay can be found at the following links: For Healthcare Providers: https://www.fda.gov/media/460545/download For Patients: https://www.fda.gov/media/052721/download Test Performed by: [facility] [address] [place] [address] Produce Runner: Vincent Hall M.D. Ph.D.; CLIA# [id number] Swab ENTIRE NASOPHARYNX / Unknown Swab / Unknown 01/05/2020 11:15 EDT 01/05/2020 15:42 EDT Blayne Bergeron MD MICROBIOLOGY - [facility] ORDERABLES Performing Organization Address City/State/[facility] Co de Phone Number [facility] [address] [place] [address] documented in this encounter Visit Diagnoses Diagnosis Encounter for other general examination documented in this encounter Additional Health Concerns Infection Onset Date Last Indicated Resolved Time R/O COVID-19 01/03/2022 01/03/2022 01/08/2022 22:1 5 EDT R/O COVID-19 06/20/2023 06/20/2023 06/21/2023 0:18 EDT documented as of this encounter Care Teams Insulating Machine Operator Relationship Specialty Start Date End Date Nicky Brewster MD [address] [place] [address] PCP - General 12/24/16 documented as of this encounter
--- OUTSIDE RECORDS SUMMARY | 2024-05-28 10:37 | XMS_ITS | Encounter Summary ---
[place] [address] Care Team Providers Care Muskrat Trapper Name Role Phone Nicky Brewster MD Primary Care Provider [phone] Encounter Details Date Type Department Care Team (Late st Contact Info) Description 02/20/2019 [place] [address] Michelle Cordoba Social History Tobacco Use Types Packs/Day Years [...] on filedocumented in this encounter Care Teams Muskrat Trapper Relationship Specialty Start Date End Date Nicky Brewster MD [address] [place] [address] PCP - General Family Medicine 07/25/16 documented as of this encounter
--- OUTSIDE RECORDS SUMMARY | 2024-05-28 10:37 | XMS_ITS | Encounter Summary ---
Author Organization [facility] Address [address] [place] [address] Care Team Providers Care Software Engineer Developer Name Role Phone Unavailable Primary Care Provider Unavailabl e Encounter Details Date Type Department Care Team (Late st Contact Info) Description 01/09/[address] [facility] - Maple conversion [address] [place] [address] Vincent Watkins MD [address] [place], [place] [address] Social History Tobacco Use Types Packs/Day Years [...] Priority Date/Time Associated Diagnosis Comments CYTOPATHOLOGY Routine 01/09/2002 0:00 EST documented in this encounter Results * CYTOPATHOLOGY (01/09/2002 0:00 EST) Pathology Report: CYTOPATHOLOGY REPORT Reports generated via electronic interface contain original data; however they are lacking the format of the original report. Caution should be taken when reading/interpreti ng unformatted reports. Name: ? CYN VAZQUEZ ? Accession #: ? [id number] : ? 1980 (Age: 21) ??F ?Collect Date: ? 01/09/2002 Location: ? [facility] ? Receive Date: ? 01/13/2002 Provider: ?VINCENT WATKINS MD Copy to: ? Specimen/Source: ?ThinPrep Pap Test, Cervix/Endocervix Last Menstrual Period: ? February 2001 Menstrual/Pregnanc y Status: ? Post ? SPECIMEN ADEQUACY ? Satisfactory for Evaluation - transformation zone component present GENERAL CATEGORIZATION ? Negative for Intraepithelial Lesion or Malignancy ? Document reviewed and electronically signed by: ? PRINCESS Mott(ASCP) ? Report Date: ??01/16/2002 10:05 End of Report BRUNA MARTINEZ 01/09/2002 01/13/2002 Vincent Watkins MD PATHOLOGY ORDERABLES [facility] [address] [place] [address] documented in this encounter Visit Diagnoses Not on filedocumented in this encounter
--- OUTSIDE RECORDS SUMMARY | 2024-05-28 10:37 | XMS_ITS | Encounter Summary ---
Author Organization [facility] Address [address] [place] [address] Care Team Providers Care Bobtailer Name Role Phone Nicky Brewster MD Primary Care Provider [phone] Encounter Details Date Type Department Care Team (Latest Contact Info) Description 07/03/2019 8:16 EDT - 07/03/2019 23:59 EDT Hospital Encounter [facility] - [address] [address] Unknown, Provider, Discharge Disposition: Home or Self [...] tab(s) orally once a day 03/07/2010 07/11/2023 triamcinolone (KENALOG) 0.1 % cream 10/17/2018 07/11/2023 documented as of this encounter Discharge Disposition Disposition Code Departure Means Destination Home or Self Assisted documented in this encounter Plan of Treatment Not on file documented as of this encounter Visit Diagnoses Not on filedocumented in this encounter Care Teams Bobtailer Relationship Specialty Start Date End Date Nicky Brewster MD [address] [place] [address] PCP - General 12/24/16 documented as of this encounter
--- OUTSIDE RECORDS SUMMARY | 2024-05-28 10:37 | XMS_ITS | Encounter Summary ---
Author Organization [facility] Address [address] [place] [address] Care Team Providers Care Boat Designer Name Role Phone Unavailable Primary Care Provider Unavailabl e Encounter Details Date Type Department Care Team (Late st Contact Info) Description 12/02/2001 Results Only [facility] - Maple conversion [address] [place] [address] Vincent Watkins MD [address] [place], [place] [address] Social History Tobacco Use Types Packs/Day Years [...] Date/Time Associated Diagnosis Comments SURGICAL PATHOLOGY Routine 12/02/2001 0:00 EST documented in this encounter Results * SURGICAL PATHOLOGY (12/02/2001 0:00 EST) Pathology Report: SURGICAL PATHOLOGY REPORT Reports generated via electronic interface contain original data; however they are lacking the format of the original report. Caution should be taken when reading/interpreting unformatted reports. Name: ? CYN VAZQUEZ ? Accession #: ? [id number] ? : ? 1980 (Age: 21) ??F ? Collect Date: ? 12/02/2001 ? Location: ? [facility] ? Receive Date: ? 12/03/2001 ? Provider: VINCENT WATKINS MD Copy to: JANY DYSON MD ? Final Pathologic Diagnosis: ? Ovary, right, excision: 1. ?Mature cystic teratoma (dermoid cyst). ??See comment. 2. ?Fragments of ovarian stroma with corpus luteum of . Comment: ? The mature cystic teratoma contains epidermal, dermal, respiratory and brain elements as well as adipose tissue. ??Portions of this case were reviewed at intradepartmental consultation conference. (Dr. Jose)/[facility] Document reviewed and electronically signed by: Regis Jose MD Report ??Date: 12/04/2001 16:21 By the signature above, the attending physician certifies that he/she has personally conducted a gross and/or microscopic examination of the described specimens and rendered or confirmed the above diagnosis. Specimen(s) Received: ? Dermoid cyst right ovarian Clinical History: ? Term IUP breech ??; right ovarian cyst dermoid Gross Description: ? Received in formalin labelled Nellie and right ovarian dermoid cyst is an ovarian cyst which is received incised which weighs 53 grams and measures 8.2 x 5.0 x 4.0 cm. ??There is no grossly discernible fallopian tube. ??The external surface of the cyst is generally smooth to focally slightly roughened and jean baptiste-white. ??The cyst contains matted hair admixed with white sebaceous-like pasty material. ??The cyst contains a dumbbell shaped pedunculated structure which measures 6.2 cm in length and varies in diameter from 2.5 cm to 0.2 cm in the center of the dumbbell shaped structure. ??This dumbbell shaped structure has a white focally hyperemic slightly wrinkled external surface. ??The inner lining of the cyst is otherwise generally smooth and jean baptiste-white with no papillary excrescences. ??Sections of the dumbbell shaped previously described structure reveals adipose tissue on cut surface with one of the dumbbell structures focally centrally calcified. ??The cyst wall varies in thickness from 0.1 cm to 0.2 cm. ??Also received separately in the specimen container are two fragments of cyst wall which measure 4.0 x 2.0 cm by 0.2 cm in thickness and 4.2 x 1.6 cm by 0.2 cm in thickness. ??The external surface of these two separately received fragments of cyst wall are generally smooth and white, while the inner lining is slightly roughened and focally hemorrhagic. ?? BLOCK LOPEZ A1-A2 ?Two volunteer patient representative sections of dumbbell structure from within cyst A3-A7 ?Nine sections of the cyst A8 ?Two volunteer patient representative sections from the separately received fragments of cyst wall (Sagrario Ayala)/ljn End of Report BRUNA MARTINEZ 12/02/2001 12/03/2001 9:4 3 EST Vincent Watkins MD PATHOLOGY ORDERABLES [facility] [address] [place] [address] documented in this encounter Visit Diagnoses Not on filedocumented in this encounter
--- OUTSIDE RECORDS SUMMARY | 2024-05-28 10:38 | XMS_ITS | Encounter Summary ---
Author Organization Count Includes [facility] Address [facility] [place] [address] Care Team Providers Care Senior Pastor Name Role Phone Cindi Jones Aleida JONES Primary Care Provider [phone] [phone] Encounter Details Date Type Department Care Team (Latest Contact Info) Description 10/30/2012 1:21 PM EST - 10/30/2012 4:50 PM EST Hospital En[place] [address] Blair Mckeon MD [facility] [address] GASTROENTER[place] [address] Miguel Kohli MD [facility] DR GASTROENTEROLOG[place] [address] Discharge Disposition: Home Social History Tobacco Use [...] Sign Reading Time Taken Comments Blood Pressure 110/55 10/30/2012 4:15 PM EST Pulse 70 10/30/2012 4:15 PM EST Temperature 36.7 ??C (98.1 ??F) 10/30/2012 1:59 PM ES T Respiratory Rate 15 10/30/2012 4:15 PM EST Oxygen Saturation 99% 10/30/2012 4:15 PM EST Inhaled Oxygen Concentration - - Weight 113.4 kg (250 lb) 10/30/2012 1:59 PM EST Height 160 cm (5' 3) 10/30/2012 1:59 PM EST Body Mass Index 44.29 10/30/2012 1:59 PM EST documented in this encounter Discharge Instructions * Discharge Instructions* Daxa Berrios RN - 10/30/2012 3:23 PM EST You may have received medication before and/or during your procedure, which affects judgement and reaction time. Do not drive, operate machinery, drink alcoholic beverages, or make important decisions for 24 hours. Be careful on stairs, as you may be unsteady on your feet. You may eat a regular diet as tolerated. Do not smoke if you are alone. IV site -- slight redness, or tenderness is normal, you can use a warm compress. If tenderness and redness increases or foul drainage occurs, please contact your M. D. Please call [phone], before 5pm with problems, questions or concerns, after 5pm call the Hospital at [phone] and ask to speak to the Marketing Assistant Retail Division oncology registrar and the copper flotation operator will contactthat person for you. Discharge instructions reviewed with patient who expresses understanding. * Patient Instructions* Miguel Kohli MD - 10/30/2012 3:18 PM EST Please see Recommendations in the Provation procedure report which is documented in the procedural note in [facility]. * Attachments The following attachments cannot be sent through Care Everywhere. * UPPER GI ENDOSCOPY: WHAT TO EXPECT AT HOME (MAURITIAN) documented in this encounter Medications at Time of Discharge Medication Sig Dispensed Refills Start Date End Date hydrOXYchloroQUINE (Plaquenil) 200 mg Tablet 1 tab(s) orally once a day 03/07/2010 traMADol (ULTRAM) 50 mg tablet Take 50 mg by mouth 2 times daily as needed. One or two tablets meclizine (ANTIVERT) 25 mg tablet Take 25 mg by mouth 3 times daily as needed. Reported on 11/08/2016 ergocalciferol (ERGOCALCIFEROL) 50,000 unit capsule Take 50,000 Units by mouth every 14 days. Cholecalciferol, Vitamin D3, (VITAMIN D) 1,000 unit Cap Take by mouth. naproxen (NAPROSYN) 500 mg tablet Take 500 mg by mouth 2 times daily (with meals). Reported on 11/08/2016 11/08/2016 hydroxychloroquine (PLAQUENIL) 200 mg tablet Take by mouth 2 times daily. 11/01/2020 Cyanocobalamin 1,000 mcg/mL Syrg Inject 1,000 mcg as directed every 30 days. 11/01/2020 documented as of this encounter H&P Notes * Miguel Kohli MD - 10/30/2012 2:57 PM EST Gastroenterology and Hepatology Pre-Procedure History and Physical Exam Procedure: EGD: Indication: dyspepsia Patient Active Problem List Diagnoses Code ??? Dyspepsia 536.8 EXAM: HEENT: Airway examined, oropharynx clear LUNGS: Clear to auscultation HEART: Regular rate and rhythm, normal S1, S2 ABDOMEN: Normal bowel sounds, soft, non tender, non distended, A/P Proceed with the planned endoscopic procedure. Risks and benefits of the procedure explained to the patient. Consent signed. documented in this encounter Miscellaneous Notes * Miscellaneous - Provider, Scanning - 10/30/2012 11:33 PM EST * Miscellaneous - Provider, Scanning - 10/30/2012 11:29 PM EST * Miscellaneous - Provider, Scanning - 10/30/2012 2:29 PM EST documented in this encounter Plan of Treatment Not on file documented as of this encounter Procedures Procedure Name Priority Date/Time Associated Diagnosis Comments SURGICAL PATHOLOGY REPORT Routine 10/30/2012 4:35 PM EST SPECIMEN TO PATHOLOGY Routine 10/30/2012 3:20 PM EST UPPER GI ENDOSCOPY 10/30/2012 3: 01 PM EST Dyspepsia UPPER GI ENDOSCOPY Routine 10/30/2012 2: 54 PM EST documented in this encounter Results * Surgical Pathology Report (10/30/2012 4:35 PM EST) Surgical Pathology Report ? [facility] ? Provider: ?? MIGUEL KOHLI ?? Pt. Name: ?? STEVE Alston, RAFIA Pleitez ? Acc #: ?[id number] ?Pt. ? Col Date: ?? 10/30/2012 ? /Sex: ?1980,(32 years),Female ? Rec Date: ?? 10/30/2012 ? LOC: ?4T ? SURGICAL PATHOLOGY ? ---Pathologic Diagnosis--- ? Stomach, biopsy: ?Gastric antrum-type mucosa with mild reactive gastropathy. ?Body/fundic-t ype mucosa, negative for diagnostic abnormality. ? CR-0 ? 11/01/12 ? BJM ? 11/01/12 Verified by: ? Mick Velazquez MD ? Pathologist ? (Electronic Signature) ? The attending pathologist whose signature appears on this report has ? reviewed all diagnostic slides and has edited the gross and/or ? microscopic portion of the report in rendering the final pathologic ? diagnosis. ? ---Microscopic Description--- ? Slides reviewed, microscopic description not recorded. ? ---Gross Description--- ? Labeled/Fixativ e: ? Gastric biopsies, formalin. ? Qty/Size/Weight : ?Four, averaging 0.3 cm. ? Tissue Description: ?? Soft, willoughby tissues. ? Sections/Proces sing: ??(T1) ??vms/SNS ? ---Clinical Information--- ? Specimen Submitted: ? A - Gastric biopsies ? Clinical History/Diagnos is: ? Dyspepsia SHRUTHI LIZETTBEAU 10/30/2012 4:35 PM EST Miguel Kohli MD PATHOLOGY/CYTOLOGY O SEBASTIAN Performing Organization Address [facility] Co de Phone Number SHRUTHI ISBELL * Specimen to Pathology (surgical or derm) (10/30/2012 3:20 PM EST) AP Specimen 10/30/2012 3:20 PM EST 10/30/2012 3:20 PM EST Narrative SHRUTHI LIZETTVYIUM - 10/30/2012 3:20 PM EST Specimen requisition ordered. ??Separate Pathology report to follow Miguel Kohli MD PATHOLOGY/CYTOLOGY O SEBASTIAN Performing Organization Address [facility]/State/ZIP Co de Phone Number SHRUTHI ISBELL * UPPER GI ENDOSCOPY (10/30/2012 2:54 PM EST) UPPER GI ENDOSCOPY [facility] Endoscopy Patient Name: Rafia Villalobos ? Procedure Date: 10/30/2012 2:54 PM ? Date of : 1980 ? Age: 32 ? Order #: [id number] ? Procedure: ? Upper GI endoscopy Indications: ? Dyspepsia Providers: ? Miguel Kohli MD, Kailee Aguilar, ? RN, Cris Rodríguez, Personal Development Mentor Referring : ?Kylah Diaz MD Medicines: ? Monitored Anesthesia Care Complications: ? No immediate complications. Procedure: ? Pre-Anesthesia Assessment: ? - ASA Grade Assessment: I - A normal, ? healthy patient. ? - Mental Status Examination: alert ? and oriented. ? - Airway Examination: normal ? oropharyngeal airway and neck ? mobility. ? - Respiratory Examination: clear to ? auscultation. ? - CV Examination: normal. ? The procedure, indications, benefits, ? risks and alternatives were explained ? to the patient. Specifically ? discussed were potential ? complications including, but not ? limited to, bleeding, perforation, ? infection, missing a cancer, and ? adverse medication reactions. The ? Endoscope was introduced through the ? mouth, and advanced to the second ? part of duodenum. The patient ? tolerated the procedure well. The ? upper GI endoscopy was accomplished ? without difficulty. The patient ? tolerated the procedure well. ? Findings: ? The esophagus was normal. The entire examined stomach ? was normal. Biopsies were taken with a cold forceps ? for Helicobacter pylori testing. The examined ? duodenum was normal. ? Impression: ?- Normal esophagus. ? - Normal stomach. This was biopsied. ? - Normal examined duodenum. Recommendation: ?- Await pathology results. ? ___ Miguel Kohli MD 10/30/2012 3:20 PM This report has been signed electronically. Number of Addenda: 0 Note Initiated On: 10/30/2012 2:54 PM PROVATION 10/30/2012 2:54 PM EST Cindi Jones APRN GENERAL SURGICAL OR DERABLES Performing Organization Address City/State/[facility] Co de Phone Number PROVATION documented in this encounter Visit Diagnoses Not on filedocumented in this encounter Care Teams Senior Pastor Relationship Specialty Start Date End Date Cindi Jones APRN PCP - General 10/16/12 01/23/13 documented as of this encounter
--- OUTSIDE RECORDS SUMMARY | 2024-05-28 10:38 | XMS_ITS | Encounter Summary ---
Author Organization [facility] Address [facility] [place] [address] Care Team Providers Care Claim Specialist Name Role Phone Joni Maria Dulises De León APRN Primary Care Provider [phone] Reason for Visit * Reason Comments Abdominal Pain Encounter Details Date Type Department Care Team ([facility] Contact Info) Description 10/14/2012 1:00 PM EST Office [place] [address] Inessa Garcia APRN [facility] [place] [address] Dyspepsia (Primary Dx) Discharge Disposition: Home Social History Tobacco Use Types Packs/Day Years Used Date Smoking Tobacco: Never Sex and Gender Information Value Date Recorded Sex Assigned at Not on file Gender Identity Not on file Sexual Orientation Not on file documented as of this encounter Last Filed Vital Signs Vital Sign Reading Time Taken Comments Blood Pressure 150/80 10/14/2012 1:07 PM EST Pulse 100 10/14/2012 1:07 PM EST Temperature - - Respiratory Rate - - Oxygen Saturation - - Inhaled Oxygen Concentration - - Weight 113.4 kg (250 lb) 10/14/2012 1:07 PM EST Height 158.8 cm (5' 2.5) 10/14/2012 1:07 PM EST Body Mass Index 45 10/14/2012 1:07 PM EST documented in this encounter Progress Notes * Charles Ruiz - 10/14/2012 2:12 PM ESTAddended by: CHARLES RUIZ on: 10/14/2012 02:12 PM Modules accepted: Orders * Inessa Garcia RN - 10/14/2012 1:08 PM EST Section of Gastroenterology and Hepatology [address] [place] [address] .Rafia Austin : 1980 Patient is here for further evaluation of gastrointestinal symptoms at the request of Cindi Bardales. HPI: Months of epigastric pain. Occurred after receiving flu shot. Intermittent in nature. Dull. Denies reflux. No n/v. No dysphagia, odynophagia. The pain can radiate to her luq. Pain is not relieved with passage of gas. When the pain begins, she will feel movement through her gi system, then willhave several stools and will feel better. Tried Prilosec ?mg qd, for 6 weeks with no effect. Tried Nexium 40mg qd, for 6 weeks with no effect. Walnuts cause mouth swelling. Occasional bloat. No distention. Early satiety. Post-prandially can feel uncomfortable. Eats one meal per day due to pain and it is uncomfortable to have food in her. Usually will have, dinner, meat/vegetable/starch. Has not found any particular trigger for her sx. The stool changes seemed to occur at the same time. Prior to this her stools were regular and formed. No blood in stool. No mucous. No incontinence. Can be urgent at times. Does not awake during the night with sx. Weight fluctuates 5 pounds. Daily naproxen 500mg bid for two years. She describes herstomach as being loud at times. Has not made diet changes. No lower abdominal pain. History Social History ??? Marital Status: Spouse Name: N/A Number of Children: N/A ??? Years of Education: N/A Occupational History ??? Not on file. Social History Main Topics ??? Smoking status: Not on file ??? Smokeless tobacco: Not on file ??? Alcohol Use: Not on file ??? Drug Use: Not on file ??? Sexually Active: Not on file Other Topics Concern ??? Not on file Social History Narrative ??? No narrative on file Medical History: fibromyalgia, anorexia Surgical History: csectionx2, cholecystectomy Family History: no gi etiologies Allergies Allergen Reactions ??? Penicillins Current outpatient prescriptions:naproxen (NAPROSYN) 500 mg tablet, Take 500 mg by mouth 2 times daily (with meals). , Disp: , Rfl: ; hydroxychloroquine (PLAQUENIL) 200 mg tablet, Take by mouth 2 times daily. , Disp: , Rfl: ; traMADol (ULTRAM) 50 mg tablet, Take 50 mg by mouth 2 times daily as needed. One or two tablets, Disp: , Rfl: ; meclizine (ANTIVERT) 25 mg tablet, Take 25 mg by mouth 3 times daily as needed. , Disp: , Rfl: ergocalciferol (ERGOCALCIFEROL) 50,000 unit capsule, Take 50,000 Units by mouth every 14 days. , Disp: , Rfl: ; Cholecalciferol, Vitamin D3, (VITAMIN D) 1,000 unit Cap, Take by mouth. , Disp: , Rfl: ; Cyanocobalamin 1,000 mcg/mL Syrg, Inject 1,000 mcg as directed every 30 days. , Disp: , Rfl: Review of Systems - Negative except General: Cardiac: Resp: GI:see above : MS: Neuro: Skin: Psyche: Sleep: Endo: Physical Exam: soft, nontender, no mass, organomegaly Impression: 1. Dyspepsia: ?role of medication. ?role of diet. Upper endoscopy. Abdominal u/s. Dexilant 60mg qd,30 minutes before breakfast. fodmap diet and other dietary recommendations. Obtain ttg. F/u with ptonce results received. I spent a total of 50 minutes face to face with this patient; 32 minutes were spent counseling the patient in the medical problems described above. Sincerely, Inessa Garcia NP Section of Gastroenterology and Hepatology documented in this encounter Plan of Treatment Not on file documented as of this encounter Procedures Procedure Name Priority Date/Time Associated Diagnosis Comments TISSUE TRANSGLUTAMINASE, IGA Routine 10/14/2012 2:17 PM EST Dyspepsia documented in this encounter Results * US abdomen limited (10/30/2012 11:24 AM EST) Anatomical Region Laterality Modality Abdomen Ultrasound 10/30/2012 11:2 4 AM EST Narrative 10/30/2012 11:42 AM EST ?Abdominal ? (Signed Final 10/30/2012 11:41 am) Patient Info ID: ? [id number] ? : ??[birth year] (32 yrs) Name: ? RAFIA FERRERA- ? Visit Date: 10/30/2012 11:22 am ? [facility] Performed By Performed By: ?Carly Oneal RDMS Associate: ? Gabriela ESTRADA, Karsten Attending: ? Phylicia Lloyd MD Referred By: ? INESSA AZUL Service(s) Provided UABDLIM - Abdominal Limited Survey Single ? 12599 Organ or Quadrant - [id number] Indications s/p mildred ?ducts, dyspepsia Comparison None ----- Liver ----- Right Lobe Length: ?? 18.9 ?? cm Echogenicity/Echotexture: ?? Normal Comment: ?Normal appearance Gallbladder Comment: ?Surgically removed Biliary Tract Intrahepatic Ducts: ?? Normal Extrahepatic Ducts: ?? Normal Common Duct Size: ? 4 ? mm -------- Pancreas -------- Head: ? Normal Tail: ? Limited visualization due to overlying ? bowel Body: ? Normal Right Kidney Size (cm) ?L: ??11.2 Cortical Thickness: ?Normal Cortical Echogenicity: ?? Normal Hydronephrosis: ?No sonographic evidence Fluid Collections No ascites in the imaged RUQ Impression Ultrasound - Abdomen Limited - Summary Mile hepatomegaly and limited evaluation of the pancreatic tail due to overlying bowel. ??Otherwise normal post cholecystectomy RUQ ultrasound. Specifically, no biliary ductal dilatation. I ??viewed the images and agree with the above interpretation. Thank you for allowing us to participate in the care of RAFIA Maik FERRERARENA. Please do not hesitate to call if you have any questions. ? Phylicia Lloyd MD Electronically Signed Final Report ?? 10/30/2012 11:41 am Film and interpretation reviewed by the attending Procedure Note Phylicia Lloyd MD - 10/30/2012 Abdominal (Signed Final 10/30/2012 11:41 am) Patient Info ID: [id number] : [birth year] (32 yrs) Name: RAFIA FERRERA- Visit Date: 10/30/2012 11:22 am RENA Performed By Performed By: Carly Oneal RDMS Associate: Karsten Ochoa MD Attending: Phylicia Lloyd MD Referred By: INESSA AZUL Service(s) Provided UABDLIM - Abdominal Limited Survey Single 06655 Organ or Quadrant - [id number] Indications s/p mildred ?ducts, dyspepsia Comparison None ----- Liver ----- Right Lobe Length: 18.9 cm Echogenicity/Echotexture: Normal Comment: Normal appearance Gallbladder Comment: Surgically removed Biliary Tract Intrahepatic Ducts: Normal Extrahepatic Ducts: Normal Common Duct Size: 4 mm -------- Pancreas -------- Head: Normal Tail: Limited visualization due to overlying bowel Body: Normal Right Kidney Size (cm) L: 11.2 Cortical Thickness: Normal Cortical Echogenicity: Normal Hydronephrosis: No sonographic evidence Fluid Collections No ascites in the imaged RUQ Impression Ultrasound - Abdomen Limited - Summary Mile hepatomegaly and limited evaluation of the pancreatic tail due to overlying bowel. Otherwise normal post cholecystectomy RUQ ultrasound. Specifically, no biliary ductal dilatation. I viewed the images and agree with the above interpretation. Thank you for allowing us to participate in the care of RAFIA MAK. Please do not hesitate to call if you have any questions. Phylicia Lloyd MD Electronically Signed Final Report 10/30/2012 11:41 am Film and interpretation reviewed by the attending Blair Mckeon MD IMG US GEN ORDERABLE S * Tissue transglutaminase, IgA (10/14/2012 2:17 PM EST) TTG IgA Ab <4.0 <=3.9 u/ml [facility] Comment: Result Interpretation: Negative: ?<4 U/mL Weak Positive: ??4-10 U/mL Positive: ?>10 U/mL Blood specimen (specimen) 10/14/2012 2:17 PM EST 10/16/2012 8:11 AM EST Narrative Resulting Agency Comment Spec In Lab Blair Mckeon MD IMMUNOLOGY ORDERABLE S Performing Organization Address City/State/ZIP Co ak Phone Number [facility] documented in this encounter Visit Diagnoses Diagnosis Dyspepsia- Primary Dyspepsia and other specified disorders of function of stomach Dyspepsia Dyspepsia and other specified disorders of function of stomach documented in this encounter Care Teams Claim Specialist Relationship Specialty Start Date End Date Maria D Quinones, ROBERT PCP - General 10/09/12 10/15/12 documented as of this encounter
--- OUTSIDE RECORDS SUMMARY | 2024-05-28 10:38 | XMS_ITS | Encounter Summary ---
Author Organization [facility] Address [facility] [place] [address] Care Team Providers Care Assistant Film Editor Name Role Phone Cindi Jones ROBERT Primary Care Provider [phone] Encounter Details Date Type Department Care Team (Latest Contact Info) Description 10/30/2012 11:09 AM EST - 10/30/2012 11:59 PM [facility] Hospital Encounter [place] [address] CLINIC, Blair Goodrich MD [facility] [place] [address] Dyspepsia Discharge Disposition: Home Social History Tobacco Use Types Packs/Day Years Used Date Smoking Tobacco: Never Smokeless Tobacco: Never Alcohol Use Standard Drinks/Week Comments No 0 (1 standard drink = 0.6 oz pur e alcohol) Sex and Gender Information Value Date Recorded Sex Assigned at Not on file Gender Identity Not on file Sexual Orientation Not on file documented as of this encounter Medications at [...] days. 11/01/2020 documented as of this encounter Plan of Treatment Not on file documented as of this encounter Procedures Procedure Name Priority Date/Time Associated Diagnosis Comments US ABDOMEN LIMITED Routine 10/30/2012 11 :24 AM EST Dyspepsia documented in this encounter Results * US abdomen limited (10/30/2012 11:24 AM EST) Anatomical Region Laterality Modality Abdomen Ultrasound 10/30/2012 11:2 4 AM EST Narrative 10/30/2012 11:42 AM EST ?Abdominal ? (Signed Final 10/30/2012 11:41 am) Patient Info ID: ? [id number] ? : [birth year] (32 yrs) Name: ? RAFIA FERRERA- ? Visit Date: 10/30/2012 11:22 am ? [facility] Performed By Performed By: ?Carly Oneal RDMS Associate: ? Karsten Ochoa MD Attending: ? Phylicia Lloyd MD Referred By: ? INESSA AZUL Service(s) Provided UABDLIM - Abdominal Limited Survey Single ? 47020 Organ or Quadrant - [id number] Indications s/p mildred ?ducts, dyspepsia Comparison None [...] to participate in the care of RAFIA FERRERAPaolaRENA. Please do not hesitate to call if you have any questions. ? Phylicia Lloyd MD Electronically Signed Final Report ?? 10/30/2012 11:41 am Film and interpretation reviewed by the attending Procedure Note Phylicia Lloyd MD - 10/30/2012 Abdominal (Signed Final 10/30/2012 11:41 am) Patient Info ID: [id number] : [birth year] (32 yrs) Name: RAFIA FERRERA- Visit Date: 10/30/2012 11:22 am [facility] Performed By Performed By: Carly Oneal RDMS Associate: Karsten Ochoa MD Attending: Phylicia Lloyd MD. Referred By: INESSA AZUL Service(s) Provided UABDLIM - Abdominal Limited Survey Single 68092 Organ or Quadrant - [id number] Indications s/p mildred ?ducts, dyspepsia Comparison None [...] participate in the care of RAFIA Maik MAK. Please do not hesitate to call if you have any questions. Phylicia Lloyd MD Electronically Signed Final Report 10/30/2012 11:41 am Film and interpretation reviewed by the attending Blair Mckeon MD IMG US GEN ORDERABLE S documented in this encounter Visit Diagnoses Diagnosis Dyspepsia Dyspepsia and other specified disorders of function of stomach documented in this encounter Care Teams Assistant Film Editor Relationship Specialty Start Date End Date Cindi Jones, MACHINE REPAIR PERSON PCP - General 10/16/12 01/23/13 documented as of this encounter
--- OUTSIDE RECORDS SUMMARY | 2024-05-28 10:38 | XMS_ITS | Encounter Summary ---
[place] [address] Care Team Providers Care Still Photographer Name Role Phone Cindi Jones Aleida JONES Primary Care Provider [phone] Reason for Visit * Reason Onset Date Comments Other 11/20/2012 call results-ass ess Encounter Details Date Type Department Care Team (Late st Contact Info) Description 11/20/2012 [place] [phone] Shyann Ross RN Other (call results-assess) Social History Tobacco Use Types Packs/Day Years [...] encounter Miscellaneous Notes * Telephone Encounter - Shyann Ross, MICHEL - 11/20/2012 11:18 AM EST Pt seen 10-14-12. I am calling this pt today to give test results, do an assessment and give instructions per Kylah. Pt. Was seen 10-14-12 for intermittent epigastric pain which radiated to her LUQ. This is followed by spasm, several stools and feels better. Can be urgent. Occasional bloating. Eats only dinnermeat,starch,veg. Early satiety. No abd pain. I Will assess fodmap and fiber use and encourage freq small meals The stool changes coincided with the onset of epigastric pain. Testing: I will inform pt EGD bx mild inflammation, normal ttg - will assess dexilant 60 qd effectiveness I will Inform pt that abd ultrasound shows mild liver involvement (fatty liver, over read) PLAN have LFT's at PCP and repeat abdominal ultrasound in 3-6 months by PCP. I will instruct her in the possible need for low fat diet re fatty liver possible. ? Role of naproxen use 500mg bid for 2 years - will confirm this continued use. Prilosec and nexium of no help. I will continue to try patient until I reach her - left my # on her machine. documented in this encounter Plan of Treatment Not on file documented as of this encounter Visit Diagnoses Not on filedocumented in this encounter Care Teams Still Photographer Relationship Specialty Start Date End Date Cindi Jones APRN PCP - General 10/16/12 01/23/13 documented as of this encounter
--- OUTSIDE RECORDS SUMMARY | 2024-05-28 10:38 | XMS_ITS | Encounter Summary ---
Author Organization [facility] Address [facility] [place] [address] Care Team Providers Care Track Laying Supervisor Name Role Phone Cindi Jones Aleida JONES Primary Care Provider [phone] Encounter Details Date Type Department Care Team (Late st Contact Info) Description 10/30/2012 2:30 PM EST - 10/30/2012 3:00 PM EST Surgery [place] [address] Miguel Kohli MD [facility] [place] [address] UPPER GI ENDOSCOPY Social History Tobacco Use Types Packs/Day Years [...] please contact your M. D. Please call [phone], before 5pm with problems, questions or concerns, after 5pm call the Hospital at [phone] and ask to speak to the Orchestra Director synchronizer and the substation operator conversion will contactthat person for you. Discharge instructions reviewed with patient who expresses understanding. * Patient Instructions* Miguel Kohli MD - 10/30/2012 3:18 PM EST Please see Recommendations in the Provation procedure report which is documented in the procedural note in E-[facility]. * Attachments The following attachments cannot be sent through Care Everywhere. * UPPER GI ENDOSCOPY: WHAT TO EXPECT AT HOME ([place]) documented in this encounter Medications at Time [...] documented in this encounter Miscellaneous Notes * Luanne - Provider, Scanning - 10/30/2012 11:33 PM EST * Edilbertoaneous - Provider, Scanning - 10/30/2012 11:29 PM EST * Edilbertoaneous - Provider, Scanning - 10/30/2012 2:29 PM [...] 4:35 PM EST) Surgical Pathology Report ? [facility] ? Provider: ?? MIGUEL KOHLI ?? Pt. Name: ?? STEVE Alston, RAFIA Pleitez ? Acc #: ?[id number] ?Pt. ? Col Date: ?? 10/30/2012 ? [...] biopsies ? Clinical History/Diagnos is: ? [facility] 10/30/2012 4:35 PM EST Miguel Kohli MD PATHOLOGY/CYTOLOGY O [place] Performing Organization Address City/[facility] Co de Phone [facility] * Specimen to Pathology (surgical or derm) (10/30/2012 3:20 PM EST) AP Specimen 10/30/2012 3:20 PM EST 10/30/2012 3:20 PM EST [facility]ative [facility] - 10/30/2012 3:20 PM EST Specimen requisition ordered. ??Separate Pathology report to follow Miguel Kohli MD PATHOLOGY/CYTOLOGY O [place] Performing Organization Address City/[facility] Co de Phone Number [facility] * UPPER GI ENDOSCOPY (10/30/2012 2:54 PM EST) UPPER GI ENDOSCOPY [facility] Endoscopy Patient Name: Rafia Villalobos ? Procedure Date: 10/30/2012 2:54 PM ? Date of : 1980 ? Age: 32 ? Order #: [id number] ? Procedure: ? Upper GI endoscopy Indications: ? Dyspepsia Providers: ? Miguel Kohli MD, Kailee Aguilar, ? RN, Cris Rodríguez, Fiber Machine Tender Referring : ?Kylah Diaz MD Medicines: ? [...] Cindi Jones APRN GENERAL SURGICAL OR DERABLES [employer]OVATION documented in this encounter Visit Diagnoses Diagnosis Dyspepsia Dyspepsia and other specified disorders of function of stomach documented in this encounter Care Teams Track Laying Supervisor Relationship Specialty Start Date End Date Cindi Jones APRN PCP - General 10/16/12 01/23/13 documented as of this encounter
--- OUTSIDE RECORDS SUMMARY | 2024-05-28 10:38 | XMS_ITS | Encounter Summary ---
Author Organization [facility] Address [facility] [place] [address] Care Team Providers Care Preschool Teacher'S Assistant Name Role Phone Cindi Jones APRN Primary Care Provider [phone] Reason for Visit * Reason Onset Date Comments Medication Refill 11/22/2012 Encounter Details Date Type Department Care Team (Late st Contact Info) Description 11/22/2012 Refill [place] [address] Blair Mckeon MD [facility] [place] [address] Social History Tobacco Use Types Packs/Day Years [...] on filedocumented in this encounter Care Teams Preschool Teacher'S Assistant Relationship Specialty Start Date End Date Cindi Jones APRN PCP - General 10/16/12 01/23/13 documented as of this encounter
--- OUTSIDE RECORDS SUMMARY | 2024-05-28 10:38 | XMS_ITS | Encounter Summary ---
Author Organization [facility] Address [facility] [place] [address] Care Team Providers Care Concession Supervisor Name Role Phone Cindi Jones APRN Primary Care Provider [phone] Encounter Details Date Type Department Care Team (Late st Contact Info) Description 10/30/2012 3:01 PM EST Anesthesia Event [place] [address] Kt Love MD [facility] DR [place] [address] Anesthesia Record Procedure Summary Procedure Name Responsible Anesthesiologist Anesthesia Start Time Anesthesia Stop Time UPPER GI ENDOSCOPY (Trunk) Kt Love MD 10/30/12 1501 10/30/12 1518 Events Date Time Event Comment 10/30/2012 1447 1501 Start 1518 Stop Meds * Agents No agents on file. * Blood No blood administrations on file. Lines, Drains, and Airways Type Details Placement Removal (RETIRED) Peripheral IV Line - Single Lumen 10/30/12; 1410; 10/30/12; 1625 10/30/12 1410 by Deirdre Evans RN 10/30/12 1625 by Daxa Berrios RN documented in this encounter Social History Tobacco Use Types Packs/Day Years Used Date Smoking Tobacco: Never Smokeless Tobacco: Never Alcohol Use Standard Drinks/Week Comments No 0 (1 standard drink = 0.6 oz pur e alcohol) Sex and Gender Information Value Date Recorded Sex Assigned at Not on file Gender Identity Not on file Sexual Orientation Not on file documented as of this encounter OR Notes * Anesthesia Postprocedure Evaluation - Kt Love MD - 10/30/2012 3:48 PM EST Patient: Cyn Harding Procedure(s) Performed: Procedure(s): UPPER GI ENDOSCOPY Patient location: PACU Post-op pain: Adequate analgesia Post-op nausea: no nausea or vomiting Last Vitals: Filed Vitals: 10/30/12 1542 BP: 106/69 Pulse: 83 Temp: Resp: 16 Post-op cardiovascular and respiratory status: is stable Level of consciousness: awake, alert and oriented Complications: no apparent complications, tolerated the procedure well and no evidence of recall Fluid Status: normal * Anesthesia Preprocedure Evaluation - Kt Love MD - 10/29/2012 4:37 PM EST Today I evaluated Cyn Harding a 32 y.o. female. Procedure(s): UPPER GI ENDOSCOPY Patient Active Problem List Diagnoses ??? Dyspepsia Past Medical History Diagnosis Date ??? Anorexia ??? Fibromyalgia ??? GERD (gastroesophageal reflux disease) ??? Diabetes mellitus borderline, diet controlled ??? Obesity Past Surgical History Procedure Date ??? Cholecystectomy ??? section x2 History Substance Use Topics ??? Smoking status: Never Smoker ??? Smokeless tobacco: Never Used ??? Alcohol Use: No Allergies Allergen Reactions ??? Penicillins Medications: MAR and/or home medications have been reviewed. Physical Exam: There were no vitals filed for this visit. There is no height or weight on file to calculate BMI. Airway Assessment: Mallampati: II TM distance: >3 FB Neck ROM: full Cardiovascular Assessment: Pulmonary Assessment: Dental Assessment: - normal exam Misc Assessment: Anesthesia Plan: ASA 2 MAC, with a(n) intravenous induction Propofol infusion Informed Consent: Anesthetic plan and risks discussed with patient. Plan discussed with PURCHASE REQUEST EDITOR and attending. Misc. Assessment: No recent URI Notes easy bruisability and complications with bleeding with prior procedures. Denies formal work up. documented in this encounter Miscellaneous Notes * Addendum Note - Verna Nolasco - 10/31/2012 11:32 AM EST Addendum created 10/31/12 1132 by Verna Nolasco Modules edited:Anesthesia Events, Anesthesia Responsible Staff, SmartForms SmartFormsVN Section for SmartForms 266 documented in this encounter Plan of Treatment Not on file documented as of this encounter Visit Diagnoses Not on filedocumented in this encounter Care Teams Concession Supervisor Relationship Specialty Start Date End Date Cindi Jones APRN PCP - General 10/16/12 01/23/13 documented as of this encounter
--- OUTSIDE RECORDS SUMMARY | 2024-05-28 10:38 | XMS_ITS | Encounter Summary ---
Author Organization [facility] Address [facility] [place] [address] Care Team Providers Care Hog Scraper Name Role Phone Maria D Quinones ROBERT Primary Care Provider [phone] Reason for Visit * Reason Comments Allergic Reaction Encounter Details Date Type Department Care Team ([facility] Contact Info) Description 02/03/2013 12:45 PM EDT [place] [address] Ally Torres MD [facility] [address] [place] [address] Rhinitis (Primary Dx); Allergy to tree nuts; Rhinitis, allergic Discharge Disposition: Home Social History Tobacco Use [...] Sign Reading Time Taken Comments Blood Pressure 135/71 02/03/2013 12:54 PM EDT Pulse 80 02/03/2013 12:54 PM EDT Temperature - - Respiratory Rate 20 02/03/2013 12:54 PM EDT Oxygen Saturation - - Inhaled Oxygen Concentration - - Weight 113.4 kg (250 lb) 02/03/2013 12:54 PM EDT Height 160 cm (5' 3) 02/03/2013 12:54 PM EDT Body Mass Index 44.29 02/03/2013 12:54 PM EDT documented in this encounter Patient Instructions * Patient Instructions* Ally Torres MD - 02/03/2013 2:04 PM EDT avoid any foods which cause symptoms keep epipen available keep claritin reditabs on hand use dust covers on the bedding wash sheets in hot water wipe cat with damp cloth weekly allergic to cat,dog,dust mites, and tree, weed and grass pollens documented in this encounter Progress Notes * Ally Torres MD - 02/03/2013 1:36 PM EDT Subjective: Patient ID: Cyn Harding is a 32 y.o. female.who is seen at the request of Ms Jones and Ms Quinones for allergy evaluation. Notes from their clinic were reviewed by ne. HPI Cyn reports a history of intermittent oral pruritis and a metallic taste in the mouth for several months. She has not noted any triggers for this. She does reports that walnuts and bananas cause tongue/throat swelling . Latex causes itching and swelling. Does not have an Epipen. Has occasional eye itching and rhinorrhea,year round pattern. Does not take any antihistamines or nasal sprays. No allergy testing done recently. PH: fi bromyalgia,food allergy Current Outpatient Prescriptions on File Prior to Visit Medication Sig Dispense Refill ??? naproxen (NAPROSYN) 500 mg tablet Take [...] 1,000 mcg as directed every 30 days. ??? meclizine (ANTIVERT) 25 mg tablet Take 25 mg by mouth 3 times daily as needed. Allergies Allergen Reactions ??? Penicillins latex-swelling/itching FH:eczema-children SH: non smoker Env. survey: 1 cat,no smoking Review of Systems Constitutional: Positive for fatigue. HENT: Itchy tongue tongue,throat swelling Eyes: Positive for itching. Gastrointestinal: Heartburn Hematological: Bruises/bleeds easily. All other systems reviewed and are negative. Objective: Physical Exam Constitutional: No distress. Eyes: Conjunctivae are normal. Right eye exhibits no discharge. Left eye exhibits no discharge. Neck: Neck supple. Musculoskeletal: Normal range of motion. Neurological: She is alert. Skin: No rash noted. Psychiatric: She has a normal mood and affect. lungs-clear Filed Vitals: 02/03/13 1254 BP: 135/71 Pulse: 80 Resp: 20 Height: 160 cm (5' 3) Weight: 113.399 kg (250 lb) Skin testing was performed and showed an intact histamine (7 mm wheal/31 mm flare) and other tests were negative (0, 0) except as noted including saline, dust mites DP and DF 03/01, cat , weed mix 10/10, giant ragweed , malka grass , grass mix , birch , dog , tree mix, aspergillus mix, alternaria, stacey 01/19, maple 10/12, sky's quarter 06/30, pigweed 02/22, cocklebur 09/11, oak 01/19, beech 07/01, hickory, poplar, penicillium, cladosporium, and helminthosporium. Total of 26 tests placed. Consistent with allergic rhinitis Assessment and Plan: 1. Cyn has a history of throat and tongue swelling with ingestion of walnuts and also with ingestion of bananas. She does not have an Epipen therefore this was prescribed for her. The use and indications were discussed. She is advised to avoid tree nuts and bananas, and in the event of accidental ingestion, to use Epipen and take a fast acting antihistamine such as Claritin reditab 10 mg. and to go to the ER. Because she already knows of her allergies to nuts and bananas ,skin testing is not necessary. Avoidance of all nuts is advised as there can be cross reactivity among these. 2. Allergic rhinoconjunctivitis,with positives on skin testing to cat,dog,dust mites, and to tree,weed, and grass pollens. Rec: Claritin 10 mg/day as needed dust mite avoidance discussed including use of dust encasings and washing linens in hot water weekly wipe cat with a damp cloth often to lessen the dander exposure Thank you for this referral ' documented in this encounter Plan of Treatment Not on file documented as of this encounter Visit Diagnoses Diagnosis Rhinitis- Primary Chronic rhinitis Allergy to tree nuts Other adverse food reactions, not elsewhere classified Rhinitis, allergic Allergic rhinitis, cause unspecified documented in this encounter Care Teams Hog Scraper Relationship Specialty Start Date End Date Maria D Quinones APRN PCP - General 01/24/13 07/24/16 documented as of this encounter
[2024-05-28 10:45] VITALS: BP 170/70; PULSE 98; RESP 18; O2SAT 95
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
[2024-05-28 11:00] VITALS: BP 183/64; PULSE 100; RESP 18; O2SAT 95
[2024-05-28 11:15] VITALS: BP 188/60; PULSE 98; RESP 18; O2SAT 95
[2024-05-28 11:20] LABS: Abs Immature Grans 0.03 10^3/uL (0.0-0.06); Absolute Basophil Count 0.04 10^3/uL (0.0-0.2); Absolute Eosinophil Count 0.18 10^3/uL (0.0-0.7); Absolute Lymphocyte Count 3.75 10^3/uL (1.2-3.4); Absolute Monocyte Count 0.39 10^3/uL (0.1-0.8); Basophils % 0.4 %; Eosinophils % 1.8 %; HCT 40.9 % (36.0-46.0); Immature Grans % 0.3 %; Lymphocytes % 38.3 %; MCH 27.5 pg (27.0-33.0); MCHC 31.8 % (32.0-36.0); MCV 87 fL (80-95); MPV 8.8 fL (8.0-11.0); Neutrophils % 55.2 %; Platelet Count 337 10^3/uL (130-400); RBC 4.73 10^6/uL (3.93-5.22); RDW 13.9 % (11.7-14.6); RDW-SD 44.3 fL; WBC 9.79 10^3/uL (4.4-10.8)
[2024-05-28 11:30] VITALS: BP 168/73; PULSE 96; RESP 18; O2SAT 96
[2024-05-28 11:45] VITALS: BP 183/89; PULSE 95; RESP 18; O2SAT 98
[2024-05-28 11:52] LABS: BE (Venous) -3 mmol/L (-2-3); HCO3 (Venous) 23 mmol/L (23-28); O2 Sat (Venous) 97 %; TCO2 (Venous) 24 mmol/L (24-29); pCO2 (Venous) 42 mmHg (41-51); pH (Venous) 7.33 (7.31-7.41); pO2 (Venous) 96 mmHg
[2024-05-28 12:12] LABS: ALT 15 U/L (14-59); AST 10 U/L (15-37); Albumin 3.1 g/dL (3.4-5.0); Alkaline Phosphatase 112 U/L (46-116); Anion Gap 10.2 mmol/L (3-11); BUN 10 mg/dL (7-18); Bilirubin, Total 0.23 mg/dL (0.2-1.0); CO2 24.8 mmol/L (21.0-32.0); CREATININE 0.9 mg/dL (0.55-1.02); Calcium 9.3 mg/dL (8.5-10.1); Chloride 105 mmol/L (98-107); Estimated GFR 80.34 (mL/min/1.73m2); Glucose 253 mg/dL (74-106); Magnesium 1.9 mg/dL (1.8-2.4); Potassium 3.8 mmol/L (3.5-5.1); Sodium 140 mmol/L (136-145); Total Protein 7.9 g/dL (6.4-8.2)
== END 2024-05-28 14:11 | disposition home or self-care (01) ==
PROVIDERS: Emergency Provider Physician Assistant; PCP Family Medicine
DX: S13.4XXA Sprain of ligaments of cervical spine, initial encounter (principal); R51.9 Headache, unspecified; H57.12 Ocular pain, left eye; W22.8XXA Striking against or struck by other objects, initial encounter
CPT/HCPCS: 36415; 80048; 80053; 80076; 82805; 83690; 84145; 87040; 87798; 99284; 70450; 72125; 83605; 83735; 83880; 85025; 86140; 86618; 99283

== ENCOUNTER 2024-08-22 11:55 | Emergency (ER) | payer MEDICAID, SELFPAY ==
--- OUTSIDE RECORDS SUMMARY | 2024-08-22 12:04 | XMS_ITS | Encounter Summary ---
Author Organization [facility] [place] [address] Care Team Providers Care Billet Checker Name Role Phone Nicky Brewster MD Primary Care Provider [phone] Encounter Details Date Type Department Care Team (Late st Contact Info) Description 01/25/2024 Orders [place] [address] Jazmín Zarate, [facility] [place] [address] Social History Tobacco Use Types Packs/Day Years [...] 3:06 PM EDT) Quantiferon Nil 0.008 IU/mL [facility] QFT TB Ag1-Nil 0.057 IU/mL [facility] QFT TB Ag2-Nil 0.043 IU/mL [facility] Quantiferon Mitogen-Nil 9.992 IU/mL [facility] Quantiferon-TB Gold Negative Negative [facility] Quantiferon Tb Interp M. tuberculosis [...] affect immune function, or other immunological factors. [facility] Blood Venous Draw / Unknown 01/25/2024 3:06 PM EDT 01/28/2024 7:59 AM EDT Narrative Resulting Agency Comment Spec In Lab Jazmín Zarate APRN CHEMISTRY ORDERABLES [facility] [place] [id number] documented in this encounter Visit Diagnoses Not on filedocumented in this encounter Care Teams Billet Checker Relationship Specialty Start Date End Date Nicky Brewster MD [address] [place] [address] PCP - General Family Medicine 07/25/16 documented as of this encounter
--- OUTSIDE RECORDS SUMMARY | 2024-08-22 12:04 | XMS_ITS | Encounter Summary ---
Author Organization [facility] [place] [address] Care Team Providers Care Heating And Cooling Technician Name Role Phone Nicky Brewster MD Primary Care Provider [phone] Encounter Details Date Type Department Care Team (Late st Contact Info) Description 03/18/2024 Orders [place] [address] Jazmín Zarate, [facility] [place] [address] Social History Tobacco Use Types Packs/Day Years [...] Hepatitis B Surface Antibody, Quantitative 91.4 IU/L [facility] Comment: HepB Surface Ab Quant: Unvaccinated: < 8.5 IU/L Vaccinated: >= 11.5 IU/L Hepatitis B Surface Antibody Positive [facility] Comment: Patient is considered to be immune to HBV infection. Expected Results: Vaccinated: Positive Unvaccinated: Negative Blood Venous Draw / Unknown 03/18/2024 5:33 PM EDT 03/18/2024 5:42 PM EDT Narrative Resulting Agency Comment Spec In Lab Jazmín Zarate APRN CHEMISTRY ORDERABLES [facility] [place] [phone] documented in this encounter Visit Diagnoses Not on filedocumented in this encounter Care Teams Heating And Cooling Technician Relationship Specialty Start Date End Date Nicky Brewster MD [address] [place] [address] PCP - General Family Medicine 07/25/16 documented as of this encounter
--- OUTSIDE RECORDS SUMMARY | 2024-08-22 12:04 | XMS_ITS | Clinical Summary ---
Author Organization [facility] [place] [address] Care Team Providers Care Die Drawing Checker Name Role Phone Nicky Brewster MD Primary Care Provider [phone] Allergies Active Allergy Reactions Criticality Noted Date [...] tablet 5 02/03/2013 Active OMNARIS 50 mcg [place], Non-Aerosol USE 2 SPRAYS IN EACH NOSTRIL [...] Encounters Date Type Department Care Team Description 06/18/2024 8:46 AM EDT - 06/18/2024 1:07 PM EDT [place] [address] Edmond Traylor MD Moderate right ankle sprain, initial encounter Discharge Disposition: Home 06/18/2024 Travel from Last 3 Months Immunizations Name Administration Dates Next Due Hepatitis B Recombinant Adjuvanted (HepLisav-B) 02/05/2024 Influenza Vaccine, Whole 08/28/2008 [...] Sign Reading Time Taken Comments Blood Pressure 157/88 06/18/2024 8:40 AM EDT Pulse 105 06/18/2024 8:40 AM EDT Temperature 36.1 ??C (97 ??F) 06/18/2024 8:40 AM EDT Respiratory Rate 18 06/18/2024 8:40 AM EDT Oxygen Saturation 96% 06/18/2024 8:40 AM EDT Inhaled Oxygen Concentration - - Weight 131.5 kg (290 lb) 06/18/2024 8:40 AM EDT Height 157.5 cm (5' 2) 06/18/2024 8:40 AM EDT Body Mass Index 53.04 06/18/2024 8:40 AM EDT Plan of Treatment Health Maintenance Due Date Last Done Comments CT Colonography 1978 Colonoscopy 1978 Colorectal Cancer Screening 1978 FIT DNA 1978 FIT 1978 Sigmoidoscopy (10 year) with FIT yearly 1978 Sigmoidoscopy 1978 HIV screen 1996 Hepatitis C Screening 1996 Lipid Screening 1996 Tetanus/Diphtheria/Pertussis Vaccines (1 - Tdap) 05/30 HPV test 2008 PAP Smear 2008 Breast Cancer Share Decision Needed 2018 Breast Cancer screening 2018 Diabetes Screening (HgbA1C or Glucose) 2018 Covid-19 Vaccine ( season) 2024 Influenza (Flu) vaccine (1 o f 1 - Influenza standard series) 06/15/2024 08/28/2008 Procedures Procedure Name Priority Date/Time Associated Diagnosis Comments CT LOWER EXTREMITY WO CONTRAST RIGHT STAT 06/18/2024 11:06 AM EDT XR ANKLE MIN 3 VIEWS RIGHT STAT 06/18/2024 9:12 AM EDT from Last 3 Months Results * CT Lower Extremity wo Contrast Right (Generic) (06/18/2024 11:06 AM EDT) Pathologist [employer] WORKSTATION ID [id number] RAD Anatomical Region Laterality Modality Hip, Leg, Knee, Thigh, Ankle, Foot Right Computed Tomography Impressions 06/18/2024 11:22 AM EDT 1. ??No acute osseous abnormality. ??The findings of lateral tibial plafond on same-day radiograph corresponds to marginal osteophyte 2. ??Talonavicular osteoarthropathy 3. ??Calcaneal enthesopathy. Thank you for letting us participate in the care of this patient. ??If you are a health care provider and have any questions regarding this report, please contact the number below. ??For patients who have questions please contact the health residential care officer that requested your imaging first. ? Electronically signed by: Tyson Watts MD, [facility] ([phone]), at 06/18/2024 11:22 AM Narrative 06/18/2024 11:22 AM EDT EXAMINATION: CT LOWER EXTREMITY WO CONTRAST RIGHT (GENERIC) CLINICAL HISTORY: possible tibial plafond fracture on xzray TECHNIQUE: Unenhanced CT examination of the right ankle. COMPARISON: Right ankle radiograph 06/18/2024. FINDINGS: The [id number]-[id number] extends from the level of distal femur to the ankle. Bone/Joints: No fracture or dislocation. ??Some marginal bony protuberance along the lateral margin of the tibial plafond compatible with marginal osteophytes which correspond to the finding on same-day radiograph. ??Congruent ankle mortise with preserved joint space and alignment of the tibiotalar, subtalar and Chopart joints. Small plantar and posterior calcaneal spurs. Osteoarthropathy of the talonavicular joint with joint space narrowing, subchondral sclerosis and cystic changes. ??Incidental intraosseous lipoma in the calcaneus. Soft tissues: No focal soft tissue abnormality. ??The tendons are intact by CT. Procedure Note Tyson Watts MD - 06/18/2024 EXAMINATION: CT LOWER EXTREMITY WO CONTRAST RIGHT (GENERIC) CLINICAL HISTORY: possible tibial plafond fracture on xzray TECHNIQUE: Unenhanced CT examination of the right ankle. COMPARISON: Right ankle radiograph 06/18/2024. FINDINGS: The [id number] extends from the level of distal femur to the ankle. Bone/Joints: No fracture or dislocation. Some marginal bony protuberance along thelateral margin of the tibial plafond compatible with marginal osteophytes which correspond to the finding on same-day radiograph. Congruent ankle mortisewith preserved joint space and alignment of the tibiotalar, subtalar andChopart joints. Small plantar and posterior calcaneal spurs. Osteoarthropathy of the talonavicular joint with joint space narrowing, subchondral sclerosis and cystic changes. Incidental intraosseous lipomain the calcaneus. Soft tissues: No focal soft tissue abnormality. The tendons are intact by CT. IMPRESSION 1. No acute osseous abnormality. The findings of lateral tibial plafondon same-day radiograph corresponds to marginal osteophyte 2. Talonavicular osteoarthropathy 3. Calcaneal enthesopathy. Thank you for letting us participate in the care of this patient. If youare a health care provider and have any questions regarding this report,please contact the number below. For patients who have questions please contactthe health residential care officer that requested your imaging first. Electronically signed by: Tyson Watts MD, [facility]([phone]), at 06/18/2024 11:22 AM Edmond Traylor MD IMG CT ORDERABLES * XR Ankle Min 3 views Right (Generic) (06/18/2024 9:12 AM EDT) WORKSTATION ID [id number] RAD Anatomical Region Laterality Modality Ankle Right Digital Radiogra phy Impressions 06/18/2024 9:25 AM EDT There is a cortical irregularity along lateral margin of the tibial plafond is equivocal for fracture in the absence of ankle effusion. ??If clinically indicated CT can be obtained for further assessment Thank you for letting us participate in the care of this patient. ??If you are a health care provider and have any questions regarding this report, please contact the number below. ??For patients who have questions please contact the health residential care officer that requested your imaging first. ? Electronically signed by: Tyson Watts MD, [facility] ([phone]), at 06/18/2024 9:25 AM Narrative 06/18/2024 9:25 AM EDT EXAMINATION: XR ANKLE MIN 3 VIEWS RIGHT (GENERIC) CLINICAL HISTORY: Rolled right ankle concern for fracture TECHNIQUE: 3 views RIGHT ankle COMPARISON: None FINDINGS: Mild diffuse soft tissue swelling. The ankle mortise is congruent. Focal cortical irregularity along the lateral margin of the tibial plafond seen on both frontal and oblique projections. ??No ankle effusion. ??Other bones are intact with normal spacing and alignment. ?? Posterior and plantar calcaneal spurs. ??No corticated ossification at the dorsal aspect of the talonavicular joint with an ossicle, orbital injury Procedure Note Tyson Watts MD - 06/18/2024 EXAMINATION: XR ANKLE MIN 3 VIEWS RIGHT (GENERIC) CLINICAL HISTORY: Rolled right ankle concern for fracture TECHNIQUE: 3 views RIGHT ankle COMPARISON: None FINDINGS: Mild diffuse soft tissue swelling. The ankle mortise is congruent. Focal cortical irregularity along the lateral margin of the tibial plafondseen on both frontal and oblique projections. No ankle effusion. Other bonesare intact with normal spacing and alignment. Posterior and plantar calcaneal spurs. No corticated ossification at thedorsal aspect of the talonavicular joint with an ossicle, orbital injury IMPRESSION There is a cortical irregularity along lateral margin of the tibialplafond is equivocal for fracture in the absence of ankle effusion. If clinically indicated CT can be obtained for further assessment Thank you for letting us participate in the care of this patient. If youare a health care provider and have any questions regarding this report,please contact the number below. For patients who have questions please contactthe health residential care officer that requested your imaging first. Electronically signed by: Tyson Watts MD, [facility]([phone]), at 06/18/2024 9:25 AM Brianda Salinas MD IMG DX ORDERABLES from Last 3 Months Care Teams Die Drawing Checker Relationship Specialty Start Date End Date Nicky Brewster MD [address] [place] [address] PCP - General Family Medicine 07/25/16
--- OUTSIDE RECORDS SUMMARY | 2024-08-22 12:04 | XMS_ITS | Encounter Summary ---
Author Organization [facility] [place] [address] Care Team Providers Care Application Development Specialist Name Role Phone Nicky Brewster MD Primary Care Provider [phone] Reason for Visit * Reason Comments Ankle Pain Encounter Details Date Type Department Care Team ([facility] Contact Info) Description 06/18/2024 8:46 AM EDT - 06/18/2024 1:07 PM EDT Emergency [place] [address] Edmond Tralyor MD [facility] [place] [address] Moderate right ankle sprain, initial encounter Discharge Disposition: Home Social History Tobacco Use [...] Mass Index 53.04 06/18/2024 8:40 AM EDT documented in this encounter Discharge Instructions * Discharge Instructions* Edmond Traylor MD - 06/18/2024 12:48 PM EDT Rest your right ankle. Use a ankle air splint as needed for comfort or Vinayak wrap Take Tylenol as needed for pain Follow-up with your primary care provider Follow-up with occupational medicine Return to the emergency department with any worsening concerns or symptoms * Attachments The following attachments cannot be sent through Care Everywhere. * Ankle Sprain (Uzbek) documented in this encounter Medications at Time of Discharge Medication Sig Dispensed Refills Start Date End Date DULoxetine DR (Cymbalta) 30 mg Capsule, Delayed Release(E.C.) TAKE ONE CAPSULE BY MOUTH EVERY DAY INCREASE TO TWO TIMES A DAY IN 2 WEEKS 08/27/2020 levonorgestreL (MIRENA) 20 mcg/24 hours (6 yrs) 52 mg IUD 1 ea by intrauteral administration once Benzoyl Peroxide 5 % Lotion 1 ayad applied topically 2 times a day hydrOXYchloroQUINE (Plaquenil) 200 mg Tablet 1 tab(s) orally once a day 03/07/2010 spironolactone (Aldactone) 100 mg Tablet 1 tab(s) orally once a day ketoconazole (NIZORAL) 2 % Cream Apply 1-2 times daily to the areas of dry scaling skin and dermatitis 30 g 2 11/01/2020 fluconazole (DIFLUCAN) 150 mg Tablet Take one tablet by mouth every week for 2 doses 2 tablet 08/16/2018 colestipol (COLESTID) 1 gram Tablet TAKE ONE TO TWO TABLETS BY MOUTH TWICE A DAY 5 05/11/2017 citalopram (CELEXA) 10 mg Tablet TAKE ONE TABLET BY MOUTH EVERY DAY 1 12/18/2016 clindamycin (CLINDAGEL) 1 % Gel APPLY TO AFFECTED AREA S TWO TIMES A DAY ON LOWER ABDOMEN 3 03/24/2017 diphenhydrAMINE (BENADRYL) 25 mg Capsule TAKE ONE CAPSULE BY MOUTH AT BEDTIME 1 04/02/2017 OMNARIS 50 mcg [place], Non-Aerosol USE 2 SPRAYS IN EACH NOSTRIL ONCE DAILY 2 08/24/2016 esomeprazole (NEXIUM) 20 mg Capsule, Delayed Release(E.C.) TAKE ONE CAPSULE BY MOUTH EVERY DAY 3 10/18/2016 sucralfate (CARAFATE) 1 gram Tablet TAKE ONE TABLET BY MOUTH EVERY MORNING TAKE ONE TABLET AT NOON ONE TABLET EARLY EVENING AND ONE TABLET AT BEDTIME BEFORE MEALS FOUR TI 1 07/04/2016 celecoxib (CELEBREX) 200 mg Capsule Take 200 mg by mouth daily. lidocaine (XYLOCAINE) 5 % Ointment Use liberally qhs prn 50 g 11/08/2016 epiNEPHrine (EPIPEN) 0.3 mg/0.3 mL (1:1,000) injectionIndications: Allergy to tree nuts Inject 0.3 mLs into the muscle once as needed for 1 dose. 0.3 mL 1 02/03/2013 loratadine (CLARITIN REDITABS) 10 mg dissolvable tabletIndications:All ergy to tree nuts,Rhinitis, allergic Take 1 tablet [...] D) 1,000 unit Cap Take by mouth. documented as of this encounter ED Notes * Edmond Traylor MD - 06/18/2024 9:40 AM EDT EMERGENCY DEPARTMENT ATTENDING PHYSICIAN NOTE History of Present Illness Cyn Renteria is a 44 y.o. female with a pmhx significant for autism, fibromyalgia, GERD, obesity, diabetes, cholecystectomy, who presents to the Emergency Department with the chief complaint of right ankle pain. 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 She was getting dressed in scrubs this morning in the locker room in a standing position she tried to slide her right foot into her shoeand rolled her right ankle laterally. She felt a crunch in her ankle. She states a year ago she wasdiagnosed with stress fractures and she is concerned that she reinjured this. No prior ankle surgeries. She did not fall to the ground no other injury. Allergic to ibuprofen but has not taken Tylenolprior to arrival. No head trauma, syncope, loss of consciousness, chest pain, shortness of breath, nausea, vomiting.. The History of Present Illness was obtained from patient. Review of Symptoms: As noted in the History of Present Illness. Past Medical History: Diagnosis Date Anorexia Diabetes mellitus borderline, diet controlled Fibromyalgia GERD (gastroesophageal reflux disease) Obesity Past Surgical History: Procedure Laterality Date SECTION x2 CHOLECYSTECTOMY UPPER GI ENDOSCOPY, EXAM 10/30/2012 UPPER GI ENDOSCOPY performed by Navin Kimbrough MD at [facility] ENDOSCOPY Social History Socioeconomic History Marital status: Spouse name: Not on file Number of children: Not on file Years of education: Not on file Highest education level: Not on file Occupational History Not on file Tobacco Use Smoking status: Never Smokeless tobacco: Never Substance and Sexual Activity Alcohol use: No Drug use: No Sexual activity: Not on file Other Topics Concern Not on file Social History Narrative Not on file Social Determinants of Health Financial Resource Strain: Not on file Food Insecurity: Not on file Transportation Needs: Not on file Physical Activity: Not on file Intimate Partner Violence: Not on file Housing Stability: Not on file No family history on file. Allergies Allergen Reactions Latex Itching Swelling Other reaction(s): itching Penicillins Tree Nut Anaphylaxis Augmentin [Amoxicillin-Pot Clavulanate] Cat Hair Extract [Allergenic Extracts] Cholestyramine (Bulk) Other (See Comments) Leukocytoclastic vasculitis Dog Hair Standardized Allergenic Extract Doxycycline Other (See Comments) Sensitive Dust & Pollen Filter Mask [Facial Mask] Imitrex [Sumatriptan Succinate] Palpitations Ivermectin Other (See Comments) Leukocytoclastic Vasculitis Methocarbamol Other (See Comments) Sexual Dysfunction Montelukast Other (See Comments) Facial pruritis, increased depressive symptoms Motrin [Ibuprofen] Itching swelling Pollen Extracts Venlafaxine Other (See Comments) Hallucination and unable to sleep Other reaction(s): Unknown Wellbutrin [Bupropion Hcl] Other (See Comments) Hallucination and unable to sleep No current facility-administered medications on file prior to encounter. Current Outpatient Medications on File Prior to Encounter Medication Sig Dispense Refill DULoxetine DR (Cymbalta) 30 mg Capsule, Delayed Release(E.C.) TAKE ONE CAPSULE BY MOUTH EVERY DAY INCREASE TO TWO TIMES A DAY IN 2 WEEKS levonorgestreL (MIRENA) 20 mcg/24 hours (6 yrs) 52 mg IUD 1 ea by intrauteral administration once Benzoyl Peroxide 5 % Lotion 1 ayad applied topically 2 times a day hydrOXYchloroQUINE (Plaquenil) 200 mg Tablet 1 tab(s) orally once a day spironolactone (Aldactone) 100 mg Tablet 1 tab(s) orally once a day ketoconazole (NIZORAL) 2 % Cream Apply 1-2 times daily to the areas of dry scaling skin and dermatitis 30 g 2 fluconazole (DIFLUCAN) 150 mg Tablet Take one tablet by mouth every week for 2 doses 2 tablet 0 colestipol (COLESTID) 1 gram Tablet TAKE ONE TO TWO TABLETS BY MOUTH TWICE A DAY 5 citalopram (CELEXA) 10 mg Tablet TAKE ONE TABLET BY MOUTH EVERY DAY 1 clindamycin (CLINDAGEL) 1 % Gel APPLY TO AFFECTED AREA S TWO TIMES A DAY ON LOWER ABDOMEN 3 diphenhydrAMINE (BENADRYL) 25 mg Capsule TAKE ONE CAPSULE BY MOUTH AT BEDTIME 1 OMNARIS 50 mcg [place], Non-Aerosol USE 2 SPRAYS IN EACH NOSTRIL ONCE DAILY 2 esomeprazole (NEXIUM) 20 mg Capsule, Delayed Release(E.C.) TAKE ONE CAPSULE BY MOUTH EVERY DAY 3 sucralfate (CARAFATE) 1 gram Tablet TAKE ONE TABLET BY MOUTH EVERY MORNING TAKE ONE TABLET AT NOON ONE TABLET EARLY EVENING AND ONE TABLET AT BEDTIME BEFORE MEALS FOUR TI 1 celecoxib (CELEBREX) 200 mg Capsule Take 200 mg by mouth daily. lidocaine (XYLOCAINE) 5 % Ointment Use liberally qhs prn 50 g PRN epiNEPHrine (EPIPEN) 0.3 mg/0.3 mL (1:1,000) injection Inject 0.3 mLs into the muscle once as needed for 1 dose. 0.3 mL 1 loratadine (CLARITIN REDITABS) 10 mg dissolvable tablet Take 1 tablet by mouth daily. 30 tablet 5 traMADol (ULTRAM) 50 mg tablet Take 50 mg by mouth 2 times daily as needed. One or two tablets meclizine (ANTIVERT) 25 mg tablet Take 25 mg by mouth 3 times daily as needed. Reported on 11/08/2016 ergocalciferol (ERGOCALCIFEROL) 50,000 unit capsule Take 50,000 Units by mouth every 14 days. Cholecalciferol, Vitamin D3, (VITAMIN D) 1,000 unit Cap Take by mouth. Physical Exam: Nursing notes and vitals were reviewed. Patient Vitals for the past 24 hrs: Temp Pulse Resp BP SpO2 O2 Device 06/18/24 0840 36.1 ??C (97 ??F) (!) 105 18 157/88 96 % RA General: Well appearing, no acute distress HEENT: NCAT Neck: Supple, FROM, No midline tenderness to palpation, Pulm: No increased work of breathing. Skin: No rashes, no petechiae Neuro: Alert and Oriented. Normal gait, speech and balance. Follows commands. No acute deficits. MSK: Right lateral malleolus ankle pain. No significant ecchymosis or swelling. Results: Labs Reviewed - No data to display CT Lower Extremity wo Contrast Right (Generic) Final Result 1. No acute osseous abnormality. The findings of lateral tibial plafond on same-day radiograph corresponds to marginal osteophyte 2. Talonavicular osteoarthropathy 3. Calcaneal enthesopathy. Thank you for letting us participate in the care of this patient. If you are a health care provider and have any questions regarding this report, please contact the number below. For patients who have questions please contact the health associate director career services that requested your imaging first. Electronically signed by: Tyson Watts MD, [facility] ([phone]), at 06/18/2024 11:22 AM XR Ankle Min 3 views Right (Generic) Final Result There is a cortical irregularity along lateral margin of the tibial plafond is equivocal for fracture in the absence of ankle effusion. If clinically indicated CT can be obtained for further assessment Thank you for letting us participate in the care of this patient. If you are a health care provider and have any questions regarding this report, please contact the number below. For patients who have questions please contact the health associate director career services that requested your imaging first. Course & Medical Decision Making: This is a 44-year-old female who presents with right lateral ankle pain after rolling her ankle getting dressed for work today at [employer]. X-ray was performed. No indication for laboratory studies. X-ray concerning for cortical irregularity possible nondisplaced fracture. Recommend CT. CT was negative. Clinical exam and findings most consistent with an ankle sprain. Patient recommended RICE. Patient voiced understanding of this. She can follow-up with occupational medicine and primary care. Tertiary survey prior to discharge negative for any additional signs or symptoms of injury. I have personally reviewed the patient's x-ray images and interpreted them as follows: Right ankle x-ray shows cortical irregularity along the lateral margin of the tibial plafond recommend CT. I have personally reviewed the patient's CT images and interpreted them as follows: CT lower extremity negative for acute fracture. My ability to evaluate or manage the patient during this ED visit was directly affected by the following social determinant(s) of health:None Diagnosis: 1. Moderate right ankle sprain, initial encounter Condition: Stable Disposition: Discharge Edmond Traylor MD 06/18/241 documented in this encounter Miscellaneous Notes * ED Triage - Nicky Tran RN - 06/18/2024 8:42 AM EDT Patient was walking at work when she rolled her right ankle. Patient reports that she didn't fall to the ground. Has not been able to put any weight on her foot. + pulse +CSM Ice pack given to patient. documented in this encounter Plan of Treatment Not on file documented as of this encounter Procedures Procedure Name Priority Date/Time Associated Diagnosis Comments CT LOWER EXTREMITY WO CONTRAST RIGHT STAT 06/18/2024 11:06 AM EDT XR ANKLE MIN 3 VIEWS RIGHT STAT 06/18/2024 9:12 AM EDT documented in this encounter Results * CT Lower Extremity wo Contrast Right (Generic) (06/18/2024 11:06 AM EDT) [facility] Signature WORKSTATION ID [id number] RAD Anatomical Region Laterality Modality Hip, Leg, [...] who have questions please contact the health associate director career services that requested your imaging first. ? Electronically signed by: Tyson Watts MD, [facility] ([phone]), at 06/18/2024 11:22 AM Narrative 06/18/2024 11:22 AM EDT EXAMINATION: CT LOWER EXTREMITY WO CONTRAST RIGHT (GENERIC) CLINICAL HISTORY: possible tibial plafond fracture on xzray TECHNIQUE: Unenhanced CT examination of the right ankle. COMPARISON: Right ankle radiograph 06/18/2024. FINDINGS: The [id number] extends from the level of distal femur [...] COMPARISON: Right ankle radiograph 06/18/2024. FINDINGS: The [id number] extends from the level of distal femur [...] patients who have questions please contactthe health associate director career services that requested your imaging first. Electronically signed by: Tyson Watts MD, [facility]([phone]), at 06/18/2024 11:22 AM Edmond Traylor MD IMG CT ORDERABLES * XR Ankle Min 3 views Right (Generic) (06/18/2024 9:12 AM EDT) WORKSTATION ID [id number] RAD Anatomical Region Laterality Modality Ankle Right [...] who have questions please contact the health associate director career services that requested your imaging first. ? Electronically signed by: Tyson Watts MD, [facility] ([phone]), at 06/18/2024 9:25 AM Narrative 06/18/2024 9:25 [...] patients who have questions please contactthe health associate director career services that requested your imaging first. Electronically signed by: Tyson Watts MD, [facility]([phone]), at 06/18/2024 9:25 AM Brianda Salinas MD IMG DX ORDERABLES documented in this encounter Visit Diagnoses Diagnosis Moderate right ankle sprain, initial encounter documented in this encounter Administered Medications Inactive Administered Medications - up to 3 most recent administrations Medication Order MAR Action Action Date Dose Rate Site acetaminophen (Tylenol) tablet 975 mg 975 mg (rounded from 1,000 mg), Oral, ONCE, 1 dose, On Sun06/18/24 at 0945, - Maximum dose of acetaminophen is 4,000 mg from all sources in 24 hours. - Unless otherwise specified, when ordered PRN for pain, acetaminophen should be given first if other PRN pain medications are ordered., STAT Given 06/18/2024 9:39 AM EDT 975 mg documented in this encounter Active and Recently Administered Medications Times are shown in EDT. Scheduled Medication Order 06/16/2024 06/17/2024 06/18/2024 acetaminophen (Tylenol) tablet 975 mg (COMPLETED) 975 mg (rounded from 1,000 mg), Oral, ONCE, 1 dose, On Sun06/18/24 at 0945, - Maximum dose of acetaminophen is 4,000 mg from all sources in 24 hours. - Unless otherwise specified, when ordered PRN for pain, acetaminophen should be given first if other PRN pain medications are ordered., STAT 0939 (Given - [facility] er: Candy Levi LPN) documented in this encounter Care Teams Application Development Specialist Relationship Specialty Start Date End Date Nicky Brewster MD [address] [place] [address] PCP - General Family Medicine 07/25/16 documented as of this encounter
--- OUTSIDE RECORDS SUMMARY | 2024-08-22 12:04 | XMS_ITS | Encounter Summary ---
[place] [address] Care Team Providers Care Animal Attendants And Trainers Name Role Phone Nicky Brewster MD Primary Care Provider [phone] Encounter Details Date Type Department Care Team (Latest Contact Info) Description 06/18/2024 Travel Social History Tobacco Use Types Packs/Day [...] on filedocumented in this encounter Care Teams Animal Attendants And Trainers Relationship Specialty Start Date End Date Nicky Brewster MD [address] [place] [address] PCP - General Family Medicine 07/25/16 documented as of this encounter
--- OUTSIDE RECORDS SUMMARY | 2024-08-22 12:04 | XMS_ITS | Encounter Summary ---
[place] [address] Care Team Providers Care Correctional Casework Specialist Name Role Phone Nicky Brewster MD Primary Care Provider [phone] Encounter Details Date Type Department Care Team [...] on filedocumented in this encounter Care Teams Correctional Casework Specialist Relationship Specialty Start Date End Date Nicky Brewster MD [address] [place] [address] PCP - General Family Medicine 07/25/16 documented as of this encounter
--- OUTSIDE RECORDS SUMMARY | 2024-08-22 12:05 | XMS_ITS | Encounter Summary ---
Author Organization [facility] [place] [address] Care Team Providers Care Wrecking Supervisor Name Role Phone Nicky Berwster MD Primary Care Provider [phone] Reason for Referral * Physical Therapy (Routine) - Closed Specialty Diagnoses / Procedures Referred By Contac t Referred To Contact Diagnoses Dyspareunia, female Pelvic floor dysfunction Veronica Melton MD [facility] DR OBSTETRICS & [place] [address] Unknown None Referral ID Status Reason Start Date Expiration Date V isits Requested Visits Authorized [id number] Closed Evaluate and Treat 11/08/2016 05/07/2017 12 12 Reason for Visit * Reason Comments Establish Care * Consultation (Routine) - Closed Specialty Diagnoses / Procedures Referred By Contac t Referred To Contact Obstetrics and Gynecology Diagnoses VULVA CYST Nicky Brewster MD [address] [place] [address] Veronica Melton MD [facility] OBSTETRICS [place] [address] Referral ID Status Reason Start Date Expiration Date V isits Requested Visits Authorized [id number] Closed Consult, Test & Treat [facility] 07/25/2016 07/25/2017 1 1 Encounter Details Date Type Department Care Team (Late st Contact Info) Description 11/08/2016 11:00 AM EST Office Visit Obstetrics 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 OMNARIS 50 mcg [place], Non-Aerosol USE 2 SPRAYS IN EACH NOSTRIL [...] with 30 minutes of the time spent [id number] in discussing her diagnosis and reviewing options [...] PM EST) Yeast Culture No Yeast isolated [facility] Vaginal 11/08/2016 4:37 PM EST 11/08/2016 4:37 PM EST Narrative Resulting Agency Comment Spec In Lab Veronica Melton MD MICROBIOLOGY - GENE [facility] ORDERABLES [facility] [place] [address] documented in this encounter Visit Diagnoses Diagnosis Fibromyalgia Mylagia and myositis, unspecified Dyspareunia, female Dyspareunia Pelvic floor dysfunction Pelvic muscle wasting Vulvar cysts Other specified noninflammatory disorder of vulva and perineum documented in this encounter Care Teams Wrecking Supervisor Relationship Specialty Start Date End Date Nicky Brewster MD [address] [place] [address] PCP - General Family Medicine 07/25/16 documented as of this encounter
--- OUTSIDE RECORDS SUMMARY | 2024-08-22 12:05 | XMS_ITS | Encounter Summary ---
Author Organization [facility] Address [facility] [place] [address] Care Team Providers Care Cover Maker Name Role Phone Maria D Quinones ROBERT Primary Care Provider [phone] Reason for Visit * Reason Comments Allergic Reaction Encounter Details Date Type Department Care Team ([facility] Contact Info) Description 02/03/2013 12:45 PM EDT [place] [address] Ally Torres MD [facility] [place] [address] Rhinitis (Primary Dx); Allergy to tree nuts; [...] unspecified documented in this encounter Care Teams Cover Maker Relationship Specialty Start Date End Date Maria D Quinones APRN PCP - General 01/24/13 07/24/16 documented as of this encounter
--- OUTSIDE RECORDS SUMMARY | 2024-08-22 12:05 | XMS_ITS | Encounter Summary ---
Author Organization [facility] [place] [address] Care Team Providers Care Motel Clerk Name Role Phone Nicky Brewster MD Primary Care Provider [phone] Encounter Details Date Type Department Care Team (Late st Contact Info) Description 11/01/2020 Refill Dermatology at [address] [place] [address] Alicia Andersen, RETAIL VISUAL MERCHANDISER Social History Tobacco Use Types Packs/Day Years [...] on filedocumented in this encounter Care Teams Motel Clerk Relationship Specialty Start Date End Date Nicky Brewster MD [address] [place] [address] PCP - General Family Medicine 07/25/16 documented as of this encounter
--- OUTSIDE RECORDS SUMMARY | 2024-08-22 12:05 | XMS_ITS | Encounter Summary ---
Author Organization [facility] [place] [address] Care Team Providers Care Crisis Manager Name Role Phone Nicky Brewster MD Primary Care Provider [phone] Encounter Details Date Type Department Care Team (Late st Contact Info) Description 08/16/2018 Refill Dermatology at [address] [place] [address] Alicia Andersen, TECHNOLOGY EDUCATION TEACHER Social History Tobacco Use Types Packs/Day Years [...] on filedocumented in this encounter Care Teams Crisis Manager Relationship Specialty Start Date End Date Nicky Brewster MD [address] [place] [address] PCP - General Family Medicine 07/25/16 documented as of this encounter
--- OUTSIDE RECORDS SUMMARY | 2024-08-22 12:05 | XMS_ITS | Encounter Summary ---
Author Organization [facility] [place] [address] Care Team Providers Care Liquefied Natural Gas Operator Name Role Phone Nicky Brewster MD Primary Care Provider [phone] Encounter Details Date Type Department Care Team (Late st Contact Info) Description 01/25/2024 Orders Only Occupational [place] [address] Jazmín Zarate, ROBERT [facility] OCCUPATIONAL [place] [address] Social History Tobacco Use Types Packs/Day Years [...] PM EDT) Rubeola Antibody IgG Positive Positive [facility] Comment: A positive result for this assay is considered to be an indicator of positive immune status. Blood Venous Draw / Unknown 01/25/2024 3:06 PM EDT 01/28/2024 11:35 AM EDT Narrative Resulting Agency Comment Spec In Lab Jazmín T Elliot CHRISTIAN COUNSELOR IMMUNOLOGY ORDERABLE S Performing Organization Address City/State/[facility] Co de Phone Number [facility] [place] [address] documented in this encounter Visit Diagnoses Not on filedocumented in this encounter Care Teams Liquefied Natural Gas Operator Relationship Specialty Start Date End Date Nicky Brewster MD [address] [place] [address] PCP - General Family Medicine 07/25/16 documented as of this encounter
--- OUTSIDE RECORDS SUMMARY | 2024-08-22 12:05 | XMS_ITS | Encounter Summary ---
[place] [address] Care Team Providers Care Agricultural Equipment Test Engineer Name Role Phone Nicky Brewster MD Primary Care Provider [phone] Reason for Visit * Reason Comments Follow-up Skin Check Encounter Details Date Type Department Care Team (Late st Contact Info) Description 08/16/2018 4:45 PM EDT Office Visit Dermatology at [address] [id number] Royal Isbell MD [address] [place] [address], [facility] [place] [address] Hidradenitis suppurativa; Acne vulgaris; Hirsutism Social History [...] 10-14 days at her work at the [employer] 3. Wound care check supplies given. Warned [...] Hirsutism documented in this encounter Care Teams Agricultural Equipment Test Engineer Relationship Specialty Start Date End Date Nicky Brewster MD [address] [place] [address] PCP - General Family Medicine 07/25/16 documented as of this encounter
--- OUTSIDE RECORDS SUMMARY | 2024-08-22 12:05 | XMS_ITS | Encounter Summary ---
[place] [address] Care Team Providers Care Deputy Sheriff Bailiff Name Role Phone Nicky Brewster MD Primary Care Provider [phone] Encounter Details Date Type Department Care Team (Late st Contact Info) Description 02/20/2019 Telephone [place] [address] Michelle Cordoba Social History Tobacco Use Types [...] on filedocumented in this encounter Care Teams Deputy Sheriff Bailiff Relationship Specialty Start Date End Date Nicky Brewster MD [address] [place] [address] PCP - General Family Medicine 07/25/16 documented as of this encounter
--- OUTSIDE RECORDS SUMMARY | 2024-08-22 12:05 | XMS_ITS | Encounter Summary ---
Author Organization [facility] Address [facility] [place] [address] Care Team Providers Care Fabrication And Layout Craftsman Name Role Phone Cindi Jones Aleida JONES Primary Care Provider [phone] Encounter Details Date Type Department Care Team (Late st Contact Info) Description 10/30/2012 2:30 PM EST - 10/30/2012 3:00 PM EST [place] [address] Miguel Kohli MD [facility] [place] [address] UPPER GI ENDOSCOPY Social History Tobacco Use [...] please contact your M. D. Please call [phone], before 5pm with problems, questions or concerns, after 5pm call the Hospital at [phone] and ask to speak to the Teacher Of The Deaf/Hard Of Hearing fabrication and assembly supervisor and the pile driver operator barge mounted will contactthat person for you. Discharge instructions reviewed with patient who expresses understanding. * Patient Instructions* Miguel Kohli MD - 10/30/2012 3:18 PM EST Please see Recommendations in the Provation procedure report which is documented in the procedural note in E-DH. * Attachments The following attachments cannot be sent through Care Everywhere. * UPPER GI ENDOSCOPY: WHAT TO EXPECT AT HOME (HUNGARIAN) documented in this encounter Medications at Time [...] 4:35 PM EST) Surgical Pathology Report ? [facility] ? Provider: ?? MIGUEL KOHLI ?? Pt. Name: ?? STEVE Alston, RAFIA Pleitez ? Acc #: ?[id number] ?Pt. ? Col Date: ?? 10/30/2012 ? [...] biopsies ? Clinical History/Diagnos is: ? Dyspepsia [facility] 10/30/2012 4:35 PM EST Miguel Kohli MD PATHOLOGY/CYTOLOGY O SE[place]STIAN Performing Organization Address City[facility] Co de Phone Number [facility] * Specimen to Pathology (surgical or derm) (10/30/2012 3:20 PM EST) AP Specimen 10/30/2012 3:20 PM EST 10/30/2012 3:20 PM EST [facility]ative [facility] - 10/30/2012 3:20 PM EST Specimen requisition ordered. ??Separate Pathology report to follow Miguel Kohli MD PATHOLOGY/CYTOLOGY O [place]STIAN Performing Organization Address City/[facility] Co de Phone Number [facility] * UPPER GI ENDOSCOPY (10/30/2012 2:54 PM EST) UPPER GI ENDOSCOPY [facility] Endoscopy Patient Name: Rafia Villalobos ? Procedure Date: 10/30/2012 2:54 PM ? Date of : 1980 ? Age: 32 ? Order #: [id number] ? Procedure: ? Upper GI endoscopy Indications: ? Dyspepsia Providers: ? Miguel Kohli MD, Kailee Aguilar, ? RN, Cris Rodríguez, Program Manufacturing Leader Referring : ?Kylah Diaz MD Medicines: ? [...] stomach documented in this encounter Care Teams Fabrication And Layout Craftsman Relationship Specialty Start Date End Date Cindi Jones APRN PCP - General 10/16/12 01/23/13 documented as of this encounter
--- OUTSIDE RECORDS SUMMARY | 2024-08-22 12:05 | XMS_ITS | Encounter Summary ---
Author Organization [facility] Address [facility] [place] [address] Care Team Providers Care Song Plugger Name Role Phone Cindi Jones Aleida JONES Primary Care Provider [phone] Encounter Details Date Type Department Care Team (Latest Contact Info) Description 10/30/2012 11:09 AM EST - 10/30/2012 11:59 PM [facility] Hospital [place] [address] CLINIC, Blair Goodrich MD [facility] [place] [address] Dyspepsia Discharge Disposition: Home Social History Tobacco [...] 10/30/2012 11:41 am) Patient Info ID: ? [id number] ? : ??[birth year] (32 yrs) Name: ? RAFIA FERRERA- ? Visit Date: 10/30/2012 11:22 am ? [facility] Performed By Performed By: ?Carly Oneal RDMS Associate: ? Karsten Ochoa MD Attending: ? Phylicia Lloyd MD Referred By: ? INESSA AZUL Service(s) Provided UABDLIM - Abdominal Limited Survey Single ? 64977 Organ or Quadrant - [id number] Indications s/p mildred ?ducts, dyspepsia Comparison None [...] Final 10/30/2012 11:41 am) Patient Info ID: [id number] : [birth year] (32 yrs) Name: RAFIA FERRERA- Visit Date: 10/30/2012 11:22 am [facility] Performed By Performed By: Carly Oneal RDMS Associate: Karsten Ochoa MD Attending: Phylicia Lloyd MD. Referred By: INESSA AZUL Service(s) Provided UABDLIM - Abdominal Limited Survey Single 46228 Organ or Quadrant - [id number] Indications s/p mildred ?ducts, dyspepsia Comparison None [...] stomach documented in this encounter Care Teams Song Plugger Relationship Specialty Start Date End Date Cindi Jones, CLAY MILLER PCP - General 10/16/12 01/23/13 documented as of this encounter
--- OUTSIDE RECORDS SUMMARY | 2024-08-22 12:05 | XMS_ITS | Encounter Summary ---
[place] [address] Care Team Providers Care Caseworker Protective Services Name Role Phone Nicky Brewster MD Primary Care Provider Reason for Visit * Reason Comments Follow-up * Consultation (Routine) - Specialty Diagnoses / Procedures Referred By Marisol avila Referred To Contact Dermatology Diagnoses Disorder of the skin and subcutaneous tissue, unspecified Skin lesion Procedures Consult Nicky Brewster MD [address] [place] [address] Royal Isbell MD [address] [place] [address], [facility] [address] Referral ID Status Reason Start Date Expiration Date V isits Requested Visits Authorized [id number] Consult, Test & Treat PCP Updated and/or Approved 10/29/2020 04/28/2021 6 6 Encounter Details Date Type Department Care Team (Late st Contact Info) Description 11/01/2020 3:45 PM EST Office Visit Dermatology at [address] [address] Royal Isbell MD [address] [place] [address], [facility] [address] Seborrheic keratosis; Seborrheic dermatitis Social [...] Skin lesion concern left mid lower back Cyn follows up after last seeing me in [...] a pleasant 40-year-old woman who has type Eliazlde pigmentation and a several seborrheic keratoses in [...] unspecified documented in this encounter Care Teams Caseworker Protective Services Relationship Specialty Start Date End Date Nicky Brewster MD [address] [place] [address] PCP - General Family Medicine 07/25/16 documented as of this encounter
--- OUTSIDE RECORDS SUMMARY | 2024-08-22 12:05 | XMS_ITS | Encounter Summary ---
[place] [address] Care Team Providers Care Electrical Continuity Inspector Name Role Phone Nicky Brewster MD Primary Care Provider [phone] Encounter Details Date Type Department Care Team [...] on filedocumented in this encounter Care Teams Electrical Continuity Inspector Relationship Specialty Start Date End Date Nicky Brewster MD [address] [place] [address] PCP - General Family Medicine 07/25/16 documented as of this encounter
--- OUTSIDE RECORDS SUMMARY | 2024-08-22 12:05 | XMS_ITS | Encounter Summary ---
Author Organization [facility] [place] [address] Care Team Providers Care Manager Books Name Role Phone Nicky Brewster MD Primary Care Provider [phone] Encounter Details Date Type Department Care Team (Late st Contact Info) Description 01/25/2024 Orders [place] [address] Jazmín Zarate, ROBERT [facility] [place] [address] Social History Tobacco Use Types Packs/Day Years [...] PM EDT) Rubella Antibody IgG Positive Positive [facility] Comment: Please note: ??A positive result for this assay indicates that antibody levels are >or= 10.0 IU/mL and is considered to be an indicator of positive immune status. Blood Venous Draw / Unknown 01/25/2024 3:06 PM EDT 01/25/2024 3:27 PM EDT Narrative Resulting Agency Comment Spec In Lab Jazmín T Elliot GIFT OFFICER CHEMISTRY ORDERABLES [facility] [place] [address] documented in this encounter Visit Diagnoses Not on filedocumented in this encounter Care Teams Manager Books Relationship Specialty Start Date End Date Nicky Brewster MD [address] [place] [address] PCP - General Family Medicine 07/25/16 documented as of this encounter
--- OUTSIDE RECORDS SUMMARY | 2024-08-22 12:05 | XMS_ITS | Encounter Summary ---
[place] [address] Care Team Providers Care Personnel Psychologist Name Role Phone Nicky Brewster MD Primary Care Provider [phone] Reason for Visit * Reason Comments Follow-up Encounter Details Date Type Department Care Team ([facility] st Contact Info) Description 01/03/2018 4:15 PM EDT Office Visit Dermatology at [address] [address] Royal Isbell MD [address] [place] [address], [facility] [place] [address] Hidradenitis suppurativa; Acne vulgaris; Hirsutism Social History [...] Hirsutism documented in this encounter Care Teams Personnel Psychologist Relationship Specialty Start Date End Date Nicky Brewster MD [address] [place] [address] PCP - General Family Medicine 07/25/16 documented as of this encounter
--- OUTSIDE RECORDS SUMMARY | 2024-08-22 12:05 | XMS_ITS | Encounter Summary ---
[place] [address] Care Team Providers Care Manager Psychology Name Role Phone Nicky Brewster MD Primary Care Provider [phone] Encounter Details Date Type Department Care Team ([facility] st Contact Info) Description 07/02/2019 Telephone [place] [phone] Chen Campbell Social History Tobacco Use Types [...] CHECKLIST 07/02/2019 Chen Renteria [address] [facility] [address] [id number] : 1980 REFERRING PROVIDER: DENI WHITE V PRIMARY CARE PROVIDER: Nicky Brewster MD PRIMARY SYMPTOM (PROCEDURE INDICATION): other: dysphagia, ? reflux, ? dysmotility SAFETY QUESTIONS HISTORY OF TRANSSPHENOIDAL OR PITUITARY SURGERY? no IF YES, please inform the patient that the test cannot be scheduled due to safety concerns about testing, and the patient should speak with their provider to consider alternative testing. The clip bolter and wrapper should also contact the provider's office directly [...] CHECKLIST 07/02/2019 Chen Renteria [address] [facility] [address] [id number] : 1980 REFERRING PROVIDER: DENI WHITE V [...] their provider to consider alternative testing. The clip bolter and wrapper should also contact the provider's office directly [...] has an esophageal manometry been performed at [facility]? No: schedule an esophageal manometry followed by [facility]. Please inform the patient this is part of the test. A new referral is not needed. 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
--- OUTSIDE RECORDS SUMMARY | 2024-08-22 12:05 | XMS_ITS | Encounter Summary ---
Author Organization [facility] [place] [address] Care Team Providers Care Steam Box Hand Name Role Phone Nicky Brewster MD Primary Care Provider [phone] Reason for Referral * Audiology Exam (Routine) - Authorized Specialty Diagnoses / Procedures Referred By Marisol avila Referred To Contact Audiology Diagnoses Unspecified visual disturbance Kisha Moreno [address] [place] [address] [facility] [address] [place] [phone] Referral ID Status Reason Start Date Expiration Date Visits Requested Visits Authorized [id number] Authorized Specialty Service Requested 11/15/2023 11/14/2024 1 1 Encounter Details Date Type Department Care Team (Latest Contact Info) Description 11/15/2023 Transcribe Orders eD Incoming Referrals [phone] Kisha Moreno [address] [place], [place] [address] Unspecified visual disturbance (Primary Dx) Social History [...] Primary documented in this encounter Care Teams Steam Box Hand Relationship Specialty Start Date End Date Nicky Brewster MD [address] [place] [address] PCP - General Family Medicine 07/25/16 documented as of this encounter
--- OUTSIDE RECORDS SUMMARY | 2024-08-22 12:05 | XMS_ITS | Encounter Summary ---
Author Organization [facility] Address [facility] [place] [address] Care Team Providers Care Director Of Reservations Name Role Phone Cindi Jones APRN Primary Care Provider [phone] Reason for Visit * Reason Onset Date Comments Medication Refill 11/22/2012 Encounter Details Date Type Department Care Team (Late st Contact Info) Description 11/22/2012 [place] [address] Blair Mckeon MD [facility] [place] [address] Social History Tobacco Use Types Packs/Day Years [...] filedocumented in this encounter Care Teams Director Of Reservations Relationship Specialty Start Date End Date Cindi Jones APRN PCP - General 10/16/12 01/23/13 documented as of this encounter
--- OUTSIDE RECORDS SUMMARY | 2024-08-22 12:05 | XMS_ITS | Encounter Summary ---
Author Organization [facility] Address [facility] [place] [address] Care Team Providers Care Mussel Opener Name Role Phone Nicky Brewster MD Primary Care Provider [phone] Encounter Details Date Type Department Care Team (Late st Contact Info) Description 01/25/2024 Orders [place] [address] Jazmín Zarate, ROBERT [facility] [place] [address] Social History Tobacco Use Types Packs/Day Years [...] PM EDT) Mumps Antibody IgG Positive Positive [facility] Comment: A positive result for this assay is considered to be an indicator of positive immune status. Blood Venous Draw / Unknown 01/25/2024 3:06 PM EDT 01/28/2024 11:35 AM EDT Narrative Resulting Agency Comment Spec In Lab Jazmínmikala Zarate FARMWORKER [facility] [place] [address] documented in this encounter Visit Diagnoses Not on filedocumented in this encounter Care Teams Mussel Opener Relationship Specialty Start Date End Date Nicky Brewster MD [address] [place] [address] PCP - General Family Medicine 07/25/16 documented as of this encounter
--- OUTSIDE RECORDS SUMMARY | 2024-08-22 12:05 | XMS_ITS | Encounter Summary ---
[place] [address] Care Team Providers Care Hire Car Driver Name Role Phone Nicky Brewster MD Primary Care Provider [phone] Reason for Visit * Reason Comments Follow-up Encounter Details Date Type Department Care Team (Late st Contact Info) Description 07/05/2017 3:45 PM EDT Office Visit Dermatology at [address] [address] Royal Isbell MD [address] [place] [address], [facility] [place] [address] Hidradenitis suppurativa; Acne vulgaris; Hirsutism Social History [...] Hirsutism documented in this encounter Care Teams Hire Car Driver Relationship Specialty Start Date End Date Nicky Brewster MD [address] [place] [address] PCP - General Family Medicine 07/25/16 documented as of this encounter
--- OUTSIDE RECORDS SUMMARY | 2024-08-22 12:05 | XMS_ITS | Encounter Summary ---
Author Organization [facility] [place] [address] Care Team Providers Care Lump Room Supervisor Name Role Phone Nicky Brewster MD Primary Care Provider [phone] Encounter Details Date Type Department Care Team (Late st Contact Info) Description 04/16/2017 Refill Dermatology at [address] [place] [address] Alicia Andersen, COMPLIANCE TESTING ANALYST Social History Tobacco Use Types Packs/Day Years [...] on filedocumented in this encounter Care Teams Lump Room Supervisor Relationship Specialty Start Date End Date Nicky Brewster MD [address] [place] [address] PCP - General Family Medicine 07/25/16 documented as of this encounter
--- OUTSIDE RECORDS SUMMARY | 2024-08-22 12:05 | XMS_ITS | Encounter Summary ---
[place] [address] Care Team Providers Care Stripper Preliminary Name Role Phone Nicky Brewster MD Primary Care Provider [phone] Reason for Visit * Reason Comments Medication Refill Encounter Details Date Type Department Care Team (Late st Contact Info) Description 04/24/2018 Refill Dermatology at [address] [address] Royal Isbell MD [address] [facility] A DERMATOLOGY [place], [place] [address] Social History Tobacco Use Types Packs/Day Years [...] on filedocumented in this encounter Care Teams Stripper Preliminary Relationship Specialty Start Date End Date Nicky Brewster MD [address] [place] [address] PCP - General Family Medicine 07/25/16 documented as of this encounter
--- OUTSIDE RECORDS SUMMARY | 2024-08-22 12:05 | XMS_ITS | Encounter Summary ---
Author Organization [facility] [place] [address] Care Team Providers Care Cold Roll Inspector Name Role Phone Nicky Brewster MD Primary Care Provider [phone] Encounter Details Date Type Department Care Team (Late st Contact Info) Description 01/03/2018 Refill Dermatology at [address] [place] [address] Alicia Andersen, WELDING SETTER Social History Tobacco Use Types Packs/Day Years [...] on filedocumented in this encounter Care Teams Cold Roll Inspector Relationship Specialty Start Date End Date Nicky Brewster MD [address] [place] [address] PCP - General Family Medicine 07/25/16 documented as of this encounter
--- OUTSIDE RECORDS SUMMARY | 2024-08-22 12:05 | XMS_ITS | Encounter Summary ---
[place] [address] Care Team Providers Care Welder Production Line Combination Name Role Phone Nicky Brewster MD Primary Care Provider [phone] Encounter Details Date Type Department Care Team (Late st Contact Info) Description 01/25/2024 3:00 PM EDT Laboratory Appointment Lab [address] [place] [address] Social History Tobacco Use Types Packs/Day Years [...] on filedocumented in this encounter Care Teams Welder Production Line Combination Relationship Specialty Start Date End Date Nicky Brewster MD [address] [place] [address] PCP - General Family Medicine 07/25/16 documented as of this encounter
--- OUTSIDE RECORDS SUMMARY | 2024-08-22 12:05 | XMS_ITS | Encounter Summary ---
[place] [address] Care Team Providers Care Intelligence Support Officer Name Role Phone Maria D Quinones APRN Primary Care Provider [phone] Encounter Details Date Type Department Care Team ([facility] st Contact Info) Description 02/06/2013 Telephone Dermatology at [facility] [address] [place] [address] Bessie Jefferson MD [address] [facility] [place] [address] Social History Tobacco Use Types Packs/Day Years [...] she is requesting it be called into [facility]. Damian Ramey documented in this encounter Plan of Treatment Not on file documented as of this encounter Visit Diagnoses Not on filedocumented in this encounter Care Teams Intelligence Support Officer Relationship Specialty Start Date End Date Maria D Quinones APRN PCP - General 01/24/13 07/24/16 documented as of this encounter
--- OUTSIDE RECORDS SUMMARY | 2024-08-22 12:05 | XMS_ITS | Encounter Summary ---
[place] [address] Care Team Providers Care C Wpf Developer Name Role Phone Nicky Brewster MD Primary Care Provider [phone] Reason for Referral * Consultation (Routine) - Closed Specialty Diagnoses / Procedures Referred By Marisol avila Referred To Contact Neurology Diagnoses Postconcussion syndrome Memory deficit Nicky Brewster MD [address] [place] [address] [facility] Neurology [address] [place] [phone] Referral ID Status Reason Start Date Expiration Date V isits Requested Visits Authorized [id number] Closed Consult, Test & Treat PCP Updated and/or Approved 03/07/2022 03/07/2023 12 12 Encounter Details Date Type Department Care Team (Latest Contact Info) Description 03/07/2022 Transcribe Orders eDH Incoming Referrals [phone] Nicky Brewster MD [address] [place], [place] [address] Postconcussion syndrome; Memory deficit Social History Tobacco [...] loss documented in this encounter Care Teams C Wpf Developer Relationship Specialty Start Date End Date Nicky Brewster MD [address] [place] [address] PCP - General Family Medicine 07/25/16 documented as of this encounter
--- OUTSIDE RECORDS SUMMARY | 2024-08-22 12:05 | XMS_ITS | Encounter Summary ---
Author Organization [facility] Address [facility] [place] [address] Care Team Providers Care Insurance Loss Control Surveyor Name Role Phone Joni Maria Dulises De León APRN Primary Care Provider [phone] Reason for Visit * Reason Comments Abdominal Pain Encounter Details Date Type Department Care Team ([facility] Contact Info) Description 10/14/2012 1:00 PM EST Office [place] [address] Inessa Garcia APRN [facility] [place] [address] Dyspepsia (Primary Dx) Discharge Disposition: Home Social [...] PM EST Section of Gastroenterology and Hepatology [address] [place] [address] .Rafia Austin : 1980 Patient is here [...] 10/30/2012 11:41 am) Patient Info ID: ? [id number] ? : ??[birth year] (32 yrs) Name: ? RAFIA FERRERA- ? Visit Date: 10/30/2012 11:22 am ? RENA Performed By Performed By: ?Carly Oneal RDMS Associate: ? Gabriela ESTRADA, Karsten Attending: ? Phylicia Lloyd MD Referred By: ? INESSA AZUL Service(s) Provided UABDLIM - Abdominal Limited Survey Single ? 34892 Organ or Quadrant - [id number] Indications s/p mildred ?ducts, dyspepsia Comparison None [...] Final 10/30/2012 11:41 am) Patient Info ID: [id number] : [birth year] (32 yrs) Name: RAFIA FERRERA- Visit Date: 10/30/2012 11:22 am RENA Performed By Performed By: Carly Oneal RDMS Associate: Karsten Ochoa MD Attending: Phylicia Lloyd MD Referred By: INESSA AZUL Service(s) Provided UABDLIM - Abdominal Limited Survey Single 00304 Organ or Quadrant - [id number] Indications s/p mildred ?ducts, dyspepsia Comparison None [...] EST) TTG IgA Ab <4.0 <=3.9 u/ml [facility] Comment: Result Interpretation: Negative: ?<4 U/mL Weak Positive: ??4-10 U/mL Positive: ?>10 U/mL Blood specimen (specimen) 10/14/2012 2:17 PM EST 10/16/2012 8:11 AM EST Narrative Resulting Agency Comment Spec In Lab Blair Mckeon MD IMMUNOLOGY ORDERABLE S Performing Organization Address City/State/ZIP [place] Phone Number [facility] documented in this encounter Visit Diagnoses Diagnosis Dyspepsia- Primary Dyspepsia and other specified disorders of function of stomach Dyspepsia Dyspepsia and other specified disorders of function of stomach documented in this encounter Care Teams Insurance Loss Control Surveyor Relationship Specialty Start Date End Date Maria D Quinones, ROBERT PCP - General 10/09/12 10/15/12 documented as of this encounter
--- OUTSIDE RECORDS SUMMARY | 2024-08-22 12:05 | XMS_ITS | Encounter Summary ---
Author Organization [facility] Address [facility] [place] [address] Care Team Providers Care Derrick Boat Runner Name Role Phone Nicky Brewster MD Primary Care Provider [phone] Encounter Details Date Type Department Care Team (Late st Contact Info) Description 01/25/2024 Orders Only [place] [address] Jazmín Zarate, ROBERT [facility] [place] [address] Social History Tobacco Use Types Packs/Day Years [...] Hepatitis B Surface Antibody, Quantitative <3.5 IU/L [facility] Comment: HepB Surface Ab Quant: Unvaccinated: < 8.5 IU/L Vaccinated: >= 11.5 IU/L Hepatitis B Surface Antibody Negative [facility] Comment: Patient is presumed to be not vaccinated or immune to HBV infection. Expected Results: Vaccinated: Positive Unvaccinated: Negative Blood Venous Draw / Unknown 01/25/2024 3:06 PM EDT 01/25/2024 3:27 PM EDT Narrative Resulting Agency Comment Spec In Lab Jazmín Zarate ESCORT PATIENTS CHEMISTRY ORDERABLES [facility] [address] documented in this encounter Visit Diagnoses Not on filedocumented in this encounter Care Teams Derrick Boat Runner Relationship Specialty Start Date End Date Nicky Brewster MD [address] [place] [address] PCP - General Family Medicine 07/25/16 documented as of this encounter
--- OUTSIDE RECORDS SUMMARY | 2024-08-22 12:05 | XMS_ITS | Encounter Summary ---
Author Organization [facility] Address [facility] [address] Care Team Providers Care Agronomy Internship Name Role Phone Cindi Jones Aleida JONES Primary Care Provider [phone] Encounter Details Date Type Department Care Team (Latest Contact Info) Description 10/30/2012 1:21 PM EST - 10/30/2012 4:50 PM EST Hospital Encounter [place] [address] Blair Mckeon MD [facility] [place] [address] Miguel Kohli MD [facility] [place] [address] Discharge Disposition: Home Social History Tobacco Use [...] please contact your M. D. Please call [phone], before 5pm with problems, questions or concerns, after 5pm call the Hospital at [phone] and ask to speak to the Marketing Account Executive bonding machine tender and the track equipment operator will contactthat person for you. Discharge instructions reviewed with patient who expresses understanding. * Patient Instructions* Miguel Kohli MD - 10/30/2012 3:18 PM EST Please see Recommendations in the Provation procedure report which is documented in the procedural note in E-[facility]. * Attachments The following attachments cannot be sent through Care Everywhere. * UPPER GI ENDOSCOPY: WHAT TO EXPECT AT HOME (MACEDONIAN) documented in this encounter Medications at Time [...] 4:35 PM EST) Surgical Pathology Report ? [facility] ? Provider: ?? MIGUEL KOHLI ?? Pt. Name: ?? STEVE Alston, RAFAI Pleitez ? Acc #: ?[id number] ?Pt. ? Col Date: ?? 10/30/2012 ? [...] MD PATHOLOGY/CYTOLOGY O SEBASTIAN Performing Organization Address [facility] Co de Phone Number SHRUTHI ISBELL * Specimen to Pathology (surgical or derm) (10/30/2012 3:20 PM EST) AP Specimen 10/30/2012 3:20 PM EST 10/30/2012 3:20 PM EST Narrative SHRUTHI LIZETTVYIUM - 10/30/2012 3:20 PM EST Specimen requisition ordered. ??Separate Pathology report to follow Miguel Kohli MD PATHOLOGY/CYTOLOGY O SEBASTIAN Performing Organization Address [facility]/State/ZIP Co de Phone Number SHRUTHI ISBELL * UPPER GI ENDOSCOPY (10/30/2012 2:54 PM EST) UPPER GI ENDOSCOPY [facility] Endoscopy Patient Name: Rafia Villalobos ? Procedure Date: 10/30/2012 2:54 PM ? Date of : 1980 ? Age: 32 ? Order #: [id number] ? Procedure: ? Upper GI endoscopy Indications: ? Dyspepsia Providers: ? Miguel Kohli MD, Kailee Aguilra, ? RN, Cris Rodríguez, Forge Operator Helper Referring : ?Kylah Diaz MD Medicines: ? [...] GENERAL SURGICAL OR DERABLES Performing Organization Address City/State/[facility] Co de Phone Number [facility] documented in this encounter Visit Diagnoses Not on filedocumented in this encounter Care Teams Agronomy Internship Relationship Specialty Start Date End Date Cindi Jones APRN PCP - General 10/16/12 01/23/13 documented as of this encounter
--- OUTSIDE RECORDS SUMMARY | 2024-08-22 12:05 | XMS_ITS | Encounter Summary ---
Author Organization [facility] Address [facility] [place] [address] Care Team Providers Care Sergeant Of Officers Name Role Phone Nicky Brewster MD Primary Care Provider [phone] Encounter Details Date Type Department Care Team ([facility] st Contact Info) Description 01/25/2024 Orders [place] [address] Jazmín Zarate, ROBERT [facility] [place] [address] Social History Tobacco Use Types Packs/Day Years [...] EDT) Varicella Zoster Antibody IgG Positive Positive [facility] Comment: A positive result for this assay is considered to be an indicator of positive immune status. Blood Venous Draw / Unknown 01/25/2024 3:06 PM EDT 01/28/2024 11:35 AM EDT Narrative Resulting Agency Comment Spec In Lab Jazmínmikala Zarate SHELTERED WORKSHOP EXECUTIVE DIRECTOR [place] [address] documented in this encounter Visit Diagnoses Not on filedocumented in this encounter Care Teams Sergeant Of Officers Relationship Specialty Start Date End Date Nicky Brewster MD [address] [place] [address] PCP - General Family Medicine 07/25/16 documented as of this encounter
--- OUTSIDE RECORDS SUMMARY | 2024-08-22 12:05 | XMS_ITS | Encounter Summary ---
Author Organization [facility] [place] [address] Care Team Providers Care Health Promotion Officer Name Role Phone Maria D Quinones ROBERT Primary Care Provider [phone] Reason for Visit * Reason Comments Allergic Reaction Encounter Details Date Type Department Care Team ([facility] Contact Info) Description 02/03/2013 4:47 PM EDT - 02/03/2013 7:00 PM EDT Emergency [place] [address] Antoine Seth MD [facility] [address] [place] [address] Allergic reaction (Primary Dx) Discharge Disposition: Home [...] or any other concerns. You should take uuul-mki-zehllxw Benadryl as indicated if mild symptoms return and contact your primary care doctor if symptoms persist. * Attachments The following attachments cannot be sent through Care Everywhere. * ALLERGIC REACTION: AFTER YOUR VISIT (UGANDAN) documented in this encounter Medications at Time [...] had an allergen test completed here at [facility] around 13:00 for dog, cat and other [...] her PCP. Beto Alejandre MD Resident 02/03/13 520 ED ATTENDING NOTE: I reviewed Dr. Alejandre's [...] her ED stay. Antoine Seth MD 02/03/13 1335 * Veronica Loya RN - 02/03/2013 5:59 [...] today earlier, she was then went to [facility] for appt, after she consumed turkey sandwich [...] classified documented in this encounter Care Teams Health Promotion Officer Relationship Specialty Start Date End Date Maria D Quinones APRN PCP - General 01/24/13 07/24/16 documented as of this encounter
--- OUTSIDE RECORDS SUMMARY | 2024-08-22 12:05 | XMS_ITS | Encounter Summary ---
[place] [address] Care Team Providers Care Rewind Operator Name Role Phone Nicky Brewster MD Primary Care Provider [phone] Reason for Visit * Reason Comments Skin Check Encounter Details Date Type Department Care Team (Late st Contact Info) Description 04/16/2017 4:15 PM EDT Office Visit Dermatology at [address] [id number] Royal Isbell MD [address] [place] [address], [facility] A DERMATOLOGY [place], [place] [id number] Hidradenitis suppurativa; Acne vulgaris; Hirsutism Social History [...] Hirsutism documented in this encounter Care Teams Rewind Operator Relationship Specialty Start Date End Date Nicky Brewster MD [address] [place] [address] PCP - General Family Medicine 07/25/16 documented as of this encounter
--- OUTSIDE RECORDS SUMMARY | 2024-08-22 12:05 | XMS_ITS | Encounter Summary ---
[place] [address] Care Team Providers Care Home Manager Name Role Phone Cindi Jones Aleida JONES Primary Care Provider [phone] Reason for Visit * Reason Onset Date Comments Other 11/20/2012 call results-ass ess Encounter Details Date Type Department Care Team (Late st Contact Info) Description 11/20/2012 Telephone [place] [id number] Shyann Ross RN Other (call results-assess) Social [...] on filedocumented in this encounter Care Teams Home Manager Relationship Specialty Start Date End Date Cindi Jones APRN PCP - General 10/16/12 01/23/13 documented as of this encounter
--- OUTSIDE RECORDS SUMMARY | 2024-08-22 12:05 | XMS_ITS | Encounter Summary ---
Author Organization [facility] Address [facility] [place] [address] Care Team Providers Care Carburetor Mechanic Name Role Phone Cindi Jones APRN Primary Care Provider [phone] Encounter Details Date Type Department Care Team (Late st Contact Info) Description 10/30/2012 3:01 PM EST Anesthesia Event [place] [address] Kt Love MD [facility] DR [place] [address] Anesthesia Record Procedure Summary Procedure Name Responsible [...] risks discussed with patient. Plan discussed with CUSTOMER SERVICE ASSOCIATE and attending. Misc. Assessment: No recent URI [...] on filedocumented in this encounter Care Teams Carburetor Mechanic Relationship Specialty Start Date End Date Cindi Jones APRN PCP - General 10/16/12 01/23/13 documented as of this encounter
--- OUTSIDE RECORDS SUMMARY | 2024-08-22 12:05 | XMS_ITS | Encounter Summary ---
Author Organization [facility] [place] [address] Care Team Providers Care Podiatric Medicine Doctor Name Role Phone Maria D Quinones ROBERT Primary Care Provider [phone] Reason for Visit * Reason Comments Skin Check Encounter Details Date Type Department Care Team ([facility] Contact Info) Description 02/03/2013 3:15 PM EDT Office Visit Dermatology at [address] [address] Bessie Jefferson MD [address] [facility] [place] [address] Dermatofibroma (Primary Dx); Acne; Abnormal facial hair; [...] it was highly recommended she call her certified prosthetist/orthotist as soon as she leaves here to [...] signs: Pulse: 85 BP: 139/80 O2: 100% -[facility] ED was called, report given. Patient sent [...] by Bessie Waldron MD Section of Dermatology [facility] documented in this encounter Plan of Treatment Not on file documented as of this encounter Visit Diagnoses Diagnosis Dermatofibroma- Primary Benign neoplasm of skin, site unspecified Acne Other acne Abnormal facial hair Hirsutism Jones angioma Nevus, non-neoplastic documented in this encounter Care Teams Podiatric Medicine Doctor Relationship Specialty Start Date End Date Maria D Quinones APRN PCP - General 01/24/13 07/24/16 documented as of this encounter
[2024-08-22 12:14] VITALS: BP 142/90; PULSE 110; RESP 18; TEMP 36.6; O2SAT 97
--- NOTE | 2024-08-22 12:30 | DI.US_ITS ---
Exam(s) US LOWER EXTREMITY VENOUS LT EXAM: US LOWER EXTREMITY VENOUS LT CLINICAL HISTORY: R kne/calf pain. TECHNIQUE: Lower extremity venous ultrasound performed using grayscale, color-flow, and spectral Do ppler analysis. COMPARISON: CT CT LOWER EXTREMITY WO CONTRAST RIGHT (GENERIC) from 06/18/2024 FINDINGS: The common femoral, femoral and popliteal veins demonstrate normal compressibility, augmentation, and color Doppler. The posterior tibial veins are patent. No saphenous vein thrombosis or other superfi cial venous thrombosis is seen. No hematoma or Ahumada's cyst is seen. No fluid is seen around the pa tella which is the area of patient discomfort. IMPRESSION: Negative lower extremity ultrasound. No evidence of DVT. DATA REPOSITORY:
--- NOTE | 2024-08-22 12:43 | ED.GENADUL_ITS ---
Discharge Plan Disposition Patient Disposition: Home Discharge Details Clinical Impression: Left knee pain Primary Care Provider: Nicky Brewster V ED Provider: Ilda Marie Home Meds and New Rx's Prescriptions: No Action sucralfate [Carafate] 1 GM tablet 1 g PO PRN PRN Mirena 20 mcg/24 hr (5 years) intrauterine device 1 insert IY ONCE Patient Comments: 09/13/2018; [id number], Exp 01/2021 colestipol 1 gram tablet 1 g PO ONCE PRN (Reason: Indigestion) Rx Instructions: 1-2 tabs po as directed 1-2 times a day, 2-3 hours before or after meal duloxetine 30 mg capsule,delayed release(DR/EC) 90 mg PO DAILY Patient Comments: Pt states she takes 90 mg daily - ML 02/18/24 mecobalamin (vitamin B12) 1,000 mcg tablet,chewable 1,000 mcg PO DAILY Trulicity 0.75 mg/0.5 mL pen injector 1.5 mg SUBCUT QWEEK Patient Comments: INJECT 0.75MG UNDER THE SKIN ONCE WEEKLY lisdexamfetamine [Vyvanse] 30 mg capsule 30 mg PO DAILY ergocalciferol (vitamin D2) [Vitamin D2] 1,250 mcg (50,000 unit) capsule 1,250 mcg PO .weekly Rx Instructions: in winter only as per pt cetirizine 10 MG tablet 10 mg PO DAILY epinephrine [EpiPen 2-Don] 0.3 MG/0.3 ML auto-injector 0.3 mg IJ PRN PRNQty: 1 0RF Patient Comments: pt has not had to use this 01/23/16 buspirone 15 mg tablet 15 mg PO DAILY Patient Comments: Pt states she takes once daily - ML 02/18/24 metformin 500 mg tablet extended release 24 hr 500 tab PO DAILY Patient Comments: TAKE ONE TABLET BY MOUTH EVERY DAY Discharge Instructions Instructions: Ahumada's (popliteal) cyst Additional Instructions: I encourage you to follow up with orthopedics as scheduled. Ultrasound did not show any signs of clot or Ahumada's cyst. Pain is likely soft tissue injury that happened, though pain may be a Ahumada's cyst that has already ruptured. I encourage you to use an Vinayak wrap to help with compression, ice for 10 to 15 minutes at a time every hour or so, as well as elevation above heart level. Return to emergency care if you develop severe leg swelling, calf redness or warmth, chest pains, difficulty breathing, episodes of passing out, or if you are very worried you need to be rechecked again immediately Referrals: [facility] [Provider Group] HPI General Date/Time Provider Initiated Documentation: 08/22/24 12:20 . HPI Narrative: Cyn is a 44-year-old female who presents to the emergency department today for evaluation of left knee pain. She reports that she has been overcompensating because she had her right foot in a walking boot and was using a balance her on the left side. A couple of weeks ago she was walking and felt a sudden severe burning sensation extending all around the knee, and the posterior to the anterior aspect. She has noticed some swelling to the knee and pain with any movement. 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 She is on hormonal control with Mirena, says that she has been less active than usual due to her ankle injury. Denies associated syncope, chest pain, difficulty breathing. She denies history of blood clots or cancers. She did have concern for blood clot approximately 1 year ago, did not get imaging done. Physical exam reassuring. She does have tenderness to palpation of popliteal fossa and right left calf. Distal pulses intact. Sensation grossly intact to foot. No obvious ecchymosis or lesions. Easy work of breathing, patient is able to speak in full sentences. DDx includes but is not limited to: DVT, Ahumada's cyst, meniscal or other soft tissue/ligamentous injury Ultrasound reassuring, no Ahumada's cyst or DVT noted. Overall workup today unremarkable. Possible ruptured Ahumada's cyst or soft tissue/meniscus/ligamentous injury. Recommend Vinayak wrap, elevation, ice as needed. She does have a follow-up appointment with orthopedics scheduled for September. Related Data Home Medications ?Medication ?Instructions ?Recorded ?Confirmed cetirizine 10 mg tablet 10 mg PO DAILY 01/20/15 08/22/24 epinephrine 0.3 mg/0.3 mL 0.3 mg (0.3 mL) IJ PRN PRN #1 mL 01/21/15 08/22/24 injection, auto-injector (EpiPen 2-Don) sucralfate 1 gram tablet (Carafate) 1 g PO PRN PRN 12/01/16 08/22/24 levonorgestrel 21 mcg/24 hr (up to 1 insert intrauterine ONCE 09/18/18 08/22/24 8 years) 52 mg intrauterine device (Mirena) buspirone 15 mg tablet 15 mg PO DAILY 03/14/22 08/22/24 metformin 500 mg tablet,extended 500 tab PO DAILY 06/23/22 08/22/24 release 24 hr colestipol 1 gram tablet 1 g PO ONCE PRN Indigestion 01/01/23 08/22/24 duloxetine 30 mg capsule,delayed 90 mg PO DAILY 01/01/23 08/22/24 release mecobalamin (vitamin B12) 1,000 1,000 mcg PO DAILY 11/07/23 08/22/24 mcg chewable tablet ergocalciferol (vitamin D2) 1,250 1,250 mcg PO .weekly 03/05/24 08/22/24 mcg (50,000 unit) capsule (Vitamin D2) dulaglutide 0.75 mg/0.5 mL 1.5 mg subcut QWEEK 08/19/24 08/22/24 subcutaneous pen injector (Trulicity) lisdexamfetamine 30 mg capsule 30 mg PO DAILY 08/19/24 08/22/24 (Vyvanse) Previous Rx's ?Medication ?Instructions ?Recorded epinephrine 0.3 mg/0.3 mL 0.3 mg (0.3 mL) IJ PRN PRN #1 mL 01/21/15 injection, auto-injector (EpiPen 2-Don) Allergies Allergy/AdvReac Type Severity Reaction Status Date / Time apricot Allergy Severe swelling Verified 08/22/24 12:21 of lips and throat cholestyramine (From Allergy Severe sores in Verified 08/22/24 12:21 Questran) mouth and throat fluoxetine (From Prozac) Allergy Severe Other (See Verified 08/22/24 12:21 Comment) ibuprofen Allergy Severe high dose Verified 08/22/24 12:21 causes extreme swelling loratadine Allergy Severe Other (See Verified 08/22/24 12:21 Comment) naproxen Allergy Severe Other (See Verified 08/22/24 12:21 Comment) peach Allergy Severe swelling Verified 08/22/24 12:21 lips and throat sertraline (From Zoloft) Allergy Severe Other (See Verified 08/22/24 12:21 Comment) sucrose (From Questran) Allergy Severe sores in Verified 08/22/24 12:21 mouth and throat sumatriptan (From Imitrex) Allergy Severe Other (See Verified 08/22/24 12:21 Comment) tree nut Allergy Severe Other (See Verified 08/22/24 12:21 Comment) banana Allergy Intermediate Other (See Verified 08/22/24 12:21 Comment) ivermectin Allergy Intermediate leukocytoclastic Verified 08/22/24 12:21 vasculitis penicillamine Allergy Intermediate hives,swell Verified 08/22/24 12:21 ing Penicillins Allergy Intermediate hives, Verified 08/22/24 12:21 swelling venlafaxine HCl (From Allergy Intermediate UNKNOWN Verified 08/22/24 12:21 Effexor) amoxicillin (From Augmentin) Allergy Mild Other (See Verified 08/22/24 12:21 Comment) clavulanic acid (From Allergy Mild Other (See Verified 08/22/24 12:21 Augmentin) Comment) dog dander Allergy Mild Other (See Verified 08/22/24 12:21 Comment) doxycycline Allergy Mild I don't Verified 08/22/24 12:21 tolerate it house dust mite Allergy Mild Other (See Verified 08/22/24 12:21 Comment) methocarbamol Allergy Mild Other (See Verified 08/22/24 12:21 Comment) sulfamethoxazole (From Allergy Mild macular Verified 08/22/24 12:21 Bactrim) rash trimethoprim (From Bactrim) Allergy Mild macular Verified 08/22/24 12:21 rash apple Allergy Swelling/Ed Verified 08/22/24 12:21 chris montelukast sodium (From AdvReac Severe facial Verified 08/22/24 12:21 Singulair) swelling, itching, depression bupropion HCl (From AdvReac Intermediate visual Verified 08/22/24 12:21 Wellbutrin) disturbances latex AdvReac Intermediate Skin Rash Verified 08/22/24 12:21 walnut Allergy Severe swelling Uncoded 08/22/24 12:21 tongue and throat General Stated Complaint: Orthopedic SUJATA: 4 Review of Systems Narrative: see HPI Exam Const General: cooperative, healthy appearing, comfortable and no acute distress Nutritional Appearance: overweight Resp Effort & Inspection: normal respiratory effort and able to speak in complete sentences Skin General skin exam: no rashes or lesions noted Neuro Cognition: normal cognition Speech: speech normal Motor: muscle tone normal throughout Sensory Exam: no sensory deficits noted Extrem Left lower extremity: normal capillary refill, knee Details: tenderness, swelling and abnormal ROM (Limited due to discomfort); no abrasions, no lacerations, no ecchymosis, no deformity and no unusual warmth and lower leg (Generalized tenderness to palpation) Course Vital Signs Vital signs: Vital Signs Temperature 36.6 C 08/22/24 12:14 Pulse 110 H 08/22/24 12:14 Respiratory Rate 18 08/22/24 12:14 Blood Pressure 142/90 H 08/22/24 12:14 Pulse Oximetry 97 08/22/24 12:14 Temperature 36.6 C 08/22/24 12:14 Pulse 110 H 08/22/24 12:14 Respiratory Rate 18 08/22/24 12:14 Respiratory Effort Normal 08/22/24 12:21 Blood Pressure 142/90 H 08/22/24 12:14 Pulse Oximetry 97 08/22/24 12:14 Pain Level 9 08/22/24 12:14 Medical Decision Making Imaging Data Radiologic Study: Radiologist's impression: Exam(s) US LOWER EXTREMITY VENOUS LT EXAM: US LOWER EXTREMITY VENOUS LT CLINICAL HISTORY: R kne/calf pain. TECHNIQUE: Lower extremity venous ultrasound performed using grayscale, color- flow, and spectral Doppler analysis. COMPARISON: CT CT LOWER EXTREMITY WO CONTRAST RIGHT (GENERIC) from 06/18/2024 FINDINGS: The common femoral, femoral and popliteal veins demonstrate normal compressibility, augmentation, and color Doppler. The posterior tibial veins are patent. No saphenous vein thrombosis or other superficial venous thrombosis is seen. No hematoma or Ahumada's cyst is seen. No fluid is seen around the patella which is the area of patient discomfort. IMPRESSION: Negative lower extremity ultrasound. No evidence of DVT. Quality:SDOH Health Related Social Needs: No Data to Display PFSH All Active Problems (Updated 08/22/24 @ 14:30 by Ilda Naranjo) Left knee pain (Acute) Bilateral carpal tunnel syndrome (Acute) Paresthesia of hand, bilateral (Acute) IUD (intrauterine device) in place (Acute) Type II diabetes mellitus (Acute) Ventral hernia (Acute) Right lower quadrant abdominal pain (Acute) Skin rash (Acute) After beginning Bactrim DS for labial abscess. Patient was counseled this was a allergic reaction and to refrain from Bactrim DS in the future. Vaginal charles (Acute) History of rupture of uterus (Acute) History of section (Chronic) Polycystic ovarian syndrome (Acute) Advanced maternal age risk, currently not (Acute) Abdominal pain (Acute) Hernia (Chronic) Adrenal adenoma (Acute) Patellar tendonitis of left knee (Acute) Morbid obesity (Acute) Chronic fatigue (Acute) Snoring (Acute) Poor sleep (Acute) B-complex deficiency (Chronic) GERD (gastroesophageal reflux disease) (Chronic) Galactorrhea (Chronic) Hydradenitis (Chronic) IBS (irritable bowel syndrome) (Chronic) Neuropathic pain (Chronic) Dysphagia (Chronic) Hiatal hernia (Chronic) Screening for STD (sexually transmitted disease) (Acute 11/23/15) Migraine (Acute 03/05/15) Labial abscess (Acute 06/05/17) Fibromyalgia (Acute 03/05/15) Endometritis (Acute 11/23/15) Dry eye (Acute 03/05/15) Depression (Acute 03/05/15) BMI 45.0-49.9, adult (Acute 03/05/15) Medical History Bone spur of right foot Pain in left shoulder Right foot pain COVID-19 Panic disorder Knee pain, left Carpal tunnel syndrome Lateral epicondylitis Acquired talipes planus Hx gestational diabetes Exposure to communicable disease Elevated blood pressure reading Abdominal pain in female Cough Dyspnea Loss of sense of smell Other amnesia Rika-Danlos syndrome Scoliosis Cervical radiculopathy Acute joint pain Inflammatory polyarthropathy Suppurative hidradenitis Hirsutism Eczema Galactorrhea during Vulvodynia Hypertrophy of breast History of IBS Chronic sinusitis Visual disturbance Brachial plexopathy Autistic disorder Postconcussion syndrome Adjustment disorder Anxiety Major depression, chronic Vitamin B deficiency Hx of herpes zoster Surgical History H/O hernia repair History of cholecystectomy section Family History Mother Hypertension Diabetes Heart disease Father Diabetes Glaucoma Hypertension Alcohol use disorder Sister Fibromyalgia ITP secondary to infection Diabetes Sister SLE (systemic lupus erythematosus related syndrome) Other Hydradenitis Ingrown hair Social History Smoking/Tobacco Use Status: Never Smoking risk assessment performed?: Yes Alcohol Intake: current Alcohol Intake frequency: holidays/special occasions only Drug use: Never Substance use type: does not use Housing: apartment Number of Children: 2 Current gender identity: female Do you feel safe at home: Yes Do you feel safe in your relationship?: Yes Female Reproductive History Menstrual control method: progestin IUCD
[2024-08-22 14:50] VITALS: BP 150/100; PULSE 101; O2SAT 99
== END 2024-08-22 14:58 | disposition home or self-care (01) ==
PROVIDERS: Emergency Provider Nurse Practitioner Family; PCP Family Medicine
DX: M25.562 Pain in left knee (principal); E11.9 Type 2 diabetes mellitus without complications; Z79.84 Long term (current) use of oral hypoglycemic drugs; Z79.85 Long-term (current) use of injectable non-insulin antidiabetic drugs
CPT/HCPCS: 99284; 93971; 99283

== ENCOUNTER 2024-09-19 15:14 | Outpatient (CLI) | payer OTHER, SELFPAY ==
--- NOTE | 2024-09-19 10:06 | DI.RAD_ITS ---
Exam(s) XR ANKLE RT COMPLETE EXAM: XR ANKLE RT COMPLETE CLINICAL HISTORY: RIGHT ANKLE PAIN, M25.571. TECHNIQUE: 2D digital imaging was performed of the right ankle. Seven images were obtained. AP, la teral and oblique views were obtained. Stress views were obtained. COMPARISON: CR LEFT FOOT COMPLETE from 01/01/2014 FINDINGS: BONES: No acute fracture is present. No bony destructive lesion is seen. There is a plantar calcanea l spur. There is an enthesophyte at the posterior calcaneus. JOINTS: The ankle mortise is normally aligned. There is no widening of the joint with stress. No deg enerative changes are seen. SOFT TISSUE: Normal. IMPRESSION: Calcaneal spurs. DATA REPOSITORY: RADIATION DOSE DELIVERED:
--- NOTE | 2024-09-19 11:30 | DI.RAD_ITS ---
Exam(s) XR KNEE LT 4V AP,LAT,KENDRA,PAT EXAM: XR KNEE LT 4V AP,LAT,KENDRA,PAT CLINICAL HISTORY: left knee pain M25.562 PAIN LEFT KNEE. TECHNIQUE: 2D digital imaging was performed. Three views. COMPARISON: CT CT LOWER EXTREMITY WO CONTRAST RIGHT (GENERIC) from 06/18/2024 FINDINGS: BONES: No acute fracture is present. No bony destructive lesion is seen. Tiny enthesophyte at quad riceps insertion on patella. JOINTS: The knee is normally aligned. No joint effusion is seen. The joint spaces are maintained. SOFT TISSUE: Normal. IMPRESSION: No acute abnormality. DATA REPOSITORY: RADIATION DOSE DELIVERED:
== END 2024-09-19 15:34 ==
LOC: DI 15:15
PROVIDERS: PCP Family Medicine; Visit Provider Physician Assistant
DX: M25.571 Pain in right ankle and joints of right foot (principal); M25.562 Pain in left knee
CPT/HCPCS: 73564; 73610

== ENCOUNTER 2024-10-01 14:06 | Outpatient (REF) | payer MEDICAID, SELFPAY ==
--- NOTE | 2024-10-01 13:30 | PAPFT_PTH ---
PATIENT: Cyn Renteria LOC: [facility] U#:[id number] AGE/SX: 44/F ROOM: RE10/01/[address]: Veronique Galloway NP : 1980 BED: DIS: 10/01/2024 SPEC #: [id number] RECD: 10/01/24 17:14 STATUS: MARIO REQ #: [id number] JUNG: 10/01/24 13:[address]: Veronique Galloway NP DEPT: [facility] Cytology RECD BY: Yasemin Horton ENTERED: 10/01/24 17:15 SP TYPE: PAPFT OTHR DR: Nicky Brewster V Tissues: 1 - CX/ENDOCX FOR PAP SMEARS Procedures: PAP THIN PREP/UVM Screening HPV DNA PROBE Comments: [id number] (HPV 16 & 18/45)
== END 2024-10-01 14:07 | disposition home or self-care (01) ==
LOC: LBN 14:06
PROVIDERS: PCP Family Medicine; Visit Provider Nurse Practitioner Women's Health
DX: Z97.5 Presence of (intrauterine) contraceptive device (principal); Z12.39 Encounter for other screening for malignant neoplasm of breast; Z30.433 Encounter for removal and reinsertion of intrauterine contraceptive device
CPT/HCPCS: 88142; 87624

== ENCOUNTER 2024-10-21 01:19 | Outpatient (CLI) | payer MEDICAID, SELFPAY ==
--- NOTE | 2024-10-21 08:00 | DI.MAMMO_ITS ---
Exam(s) MAMMO SCREENING EXAM: MAMMO SCREENING CLINICAL HISTORY: screening TECHNIQUE: Bilateral full field digital CC and MLO mammographic images were obtained with 3D tomosyn thesis and utilizing computer aided detection (CAD). COMPARISON: Available for comparison. FINDINGS: Masses/Architectural Distortion: No suspicious masses are seen. No areas of architectural distortion are present. Microcalcifications: No suspicious pleomorphic-type are seen. Skin Thickening/Nipple Retraction: None. IMPRESSION: 1. No significant interval change with no specific features of malignancy noted. 2. Unless there is more urgent need, screening mammography is recommended, as per [employer] guidelines. BI-RADS Category 1 - Negative Breast Density - Category B - Scattered areas of fibroglandular density Breast density category C or D implies that the patient has dense breast tissue. Dense breast tissue is very common and is not abnormal but dense breast tissue can make it harder to find cancer on a ma mmogram. Also, dense breast tissue may increase their breast cancer risk. This information about the result of the mammogram report was provided to the patient to raise their awareness. Use this report when you speak with the patient about their risks for breast cancer, which includes their family hist ory. At that time, you may recommend for more screening tests (Ultrasound or MRI) as they might be us eful based on their risk. A negative radiographic report should not delay biopsy if a dominant or clinically suspicious mass is present. Up to ten percent of cancers are not identified on mammography. A negative report may reinforce clinical impression. Adenosis and dense breasts may obscure an underlying neoplasm. False positive reports average 6 to 10%. Patient will receive a letter notifying them of these results.
== END 2024-10-21 01:39 ==
LOC: DI 01:19
PROVIDERS: PCP Family Medicine; Visit Provider Nurse Practitioner Women's Health
DX: Z12.31 Encounter for screening mammogram for malignant neoplasm of breast (principal); R92.323 Mammographic fibroglandular density, bilateral breasts
CPT/HCPCS: 77063; 77067

== ENCOUNTER 2024-12-05 11:05 | Emergency (ER) | payer MEDICAID, SELFPAY ==
[2024-12-05 11:12] VITALS: BP 153/86; PULSE 98; RESP 12; TEMP 36.7; O2SAT 95
--- NOTE | 2024-12-05 11:50 | W.EDPROG ---
Date of service: 12/05/24 Time of Service: 11:50 Medical Decision Making I saw this patient on arrival in the waiting room. She was sitting in a wheelchair. She was protecting her airway. She will be roomed and receive a complete evaluation. Quality:[facility] Health Related Social Needs: No Data to Display Discharge Plan Discharge Details Chief Complaint: GenMedical Primary Care Provider: Nicky Brewster V ED Provider: Provider,Temporary Home Meds and New Rx's Prescriptions: No Action sucralfate [Carafate] 1 GM tablet 1 g PO PRN PRN Mirena 20 mcg/24 hr (5 years) intrauterine device 1 insert IY ONCE Patient Comments: 09/13/2018; [id number], Exp 01/2021 colestipol 1 gram tablet 1 g PO ONCE PRN (Reason: Indigestion) Rx Instructions: 1-2 tabs po as directed 1-2 times a day, 2-3 hours before or after meal duloxetine 30 mg capsule,delayed release(DR/EC) 90 mg PO DAILY Patient Comments: Pt states she takes 90 mg daily - ML 02/18/24 mecobalamin (vitamin B12) 1,000 mcg tablet,chewable 1,000 mcg PO DAILY Trulicity 0.75 mg/0.5 mL pen injector 3 mg SUBCUT QWEEK Patient Comments: INJECT 0.75MG UNDER THE SKIN ONCE WEEKLY lisdexamfetamine [Vyvanse] 30 mg capsule 40 mg PO DAILY ergocalciferol (vitamin D2) [Vitamin D2] 1,250 mcg (50,000 unit) capsule 1,250 mcg PO .weekly Rx Instructions: in winter only as per pt cetirizine 10 MG tablet 10 mg PO DAILY epinephrine [EpiPen 2-Don] 0.3 MG/0.3 ML auto-injector 0.3 mg IJ PRN PRNQty: 1 0RF Patient Comments: pt has not had to use this 01/23/16 buspirone 15 mg tablet 15 mg PO DAILY Patient Comments: Pt states she takes once daily - ML 02/18/24 metformin 500 mg tablet extended release 24 hr 500 tab PO DAILY Patient Comments: TAKE ONE TABLET BY MOUTH EVERY DAY
[2024-12-05] MEDS: Ondansetron 4 MG/2 ML VIAL IVP (12:50)
[2024-12-05] MEDS: ACETAMINOPHEN 1,000 MG/100 ML BAG 400 MG IVPB (12:50)
[2024-12-05] MEDS: Orphenadrine 60 MG/2 ML VIAL IVP (12:51)
[2024-12-05 13:03] LABS: Abs Immature Grans 0.04 10^3/uL (0.0-0.06); Absolute Basophil Count 0.04 10^3/uL (0.0-0.2); Absolute Lymphocyte Count 3.44 10^3/uL (1.2-3.4); Absolute Monocyte Count 0.59 10^3/uL (0.1-0.8); Basophils % 0.4 %; Eosinophils % 1.9 %; HCT 41.4 % (36.0-46.0); HGB 13.4 g/dL (11.2-15.7); Immature Grans % 0.4 %; Lymphocytes % 32.4 %; MCH 27.9 pg (27.0-33.0); MCHC 32.4 % (32.0-36.0); MCV 86 fL (80-95); MPV 8.8 fL (8.0-11.0); Monocytes % 5.6 %; Neutrophils % 59.3 %; Platelet Count 320 10^3/uL (130-400); RBC 4.81 10^6/uL (3.93-5.22); RDW 14.1 % (11.7-14.6); RDW-SD 44.6 fL; WBC 10.61 10^3/uL (4.4-10.8)
[2024-12-05 13:07] LABS: ESR 55 mm/hr (0-20)
[2024-12-05 13:18] LABS: Creatine Kinase 53 U/L (26-192); Magnesium 1.8 mg/dL (1.8-2.4)
--- NOTE | 2024-12-05 14:00 | DI.RAD_ITS ---
Exam(s) XR ANKLE LT COMPLETE EXAM: XR ANKLE LT COMPLETE CLINICAL HISTORY: left ankle pain. TECHNIQUE: 2D digital imaging was performed. COMPARISON: No exams were available for comparison FINDINGS: 3 views Although there is prominent soft tissue on both sides the ankle and more prominent on the right side, this is identical to what is seen on images of the opposite-right ankle performed 09/19/2024. This may not be trauma related. There is no evidence of acute fracture or nor widening of the ankle mortise. Accessory ossicle is no radha subjacent to the lateral malleolus. There are mild degenerative changes in the tibiotalar joint, anteriorly, as best seen on the lateral view. There are no significant focal findings in the talar dome. Subtalar joint appears unremarkable. There is a benign bone island in the mid calcaneus. Mod erate size inferior calcaneal spur and enthesophyte on the posterior calcaneus, these findings simila r to the opposite ankle. IMPRESSION: No acute osseous findings in the left ankle. Other findings as above. DATA REPOSITORY: RADIATION DOSE DELIVERED:
[2024-12-05 15:28] LABS: Anion Gap 7.2 mmol/L (3-11); BUN 12 mg/dL (7-18); CO2 28.8 mmol/L (21.0-32.0); CREATININE 0.8 mg/dL (0.55-1.02); Calcium 9.6 mg/dL (8.5-10.1); Chloride 104 mmol/L (98-107); Estimated GFR 91.97 (mL/min/1.73m2); Glucose 213 mg/dL (74-106); Potassium 4.2 mmol/L (3.5-5.1); Sodium 140 mmol/L (136-145)
--- NOTE | 2024-12-05 15:32 | ED.GENADUL_ITS ---
Discharge Plan Disposition Patient Disposition: Home Condition: Stable Discharge Details Clinical Impression: Abscess, Arthralgia Primary Care Provider: Nicky Brewster V ED Provider: Yasemin Calabrese Home Meds and New Rx's Prescriptions: New methylprednisolone [Medrol (Don)] 4 mg tablets,dose pack See Rx Instructions .ROUTE .COMPLEX Qty: 21 0RF Rx Instructions: for 6 days cyclobenzaprine 10 mg tablet 10 mg PO TID PRNQty: 14 0RF cephalexin 500 mg capsule 500 mg PO Q6H 7 Days Qty: 28 0RF Continued sucralfate [Carafate] 1 GM tablet 1 g PO PRN PRN Mirena 20 mcg/24 hr (5 years) intrauterine device 1 insert IY ONCE Patient Comments: 09/13/2018; , Exp 01/2021 colestipol 1 gram tablet 1 g PO ONCE PRN (Reason: Indigestion) Rx Instructions: 1-2 tabs po as directed 1-2 times a day, 2-3 hours before or after meal duloxetine 30 mg capsule,delayed release(DR/EC) 90 mg PO DAILY Patient Comments: Pt states she takes 90 mg daily - ML 02/18/24 mecobalamin (vitamin B12) 1,000 mcg tablet,chewable 1,000 mcg PO DAILY Trulicity 0.75 mg/0.5 mL pen injector 3 mg SUBCUT QWEEK Patient Comments: INJECT 0.75MG UNDER THE SKIN ONCE WEEKLY lisdexamfetamine [Vyvanse] 30 mg capsule 40 mg PO DAILY ergocalciferol (vitamin D2) [Vitamin D2] 1,250 mcg (50,000 unit) capsule 1,250 mcg PO .weekly Rx Instructions: in winter only as per pt cetirizine 10 MG tablet 10 mg PO DAILY epinephrine [EpiPen 2-Don] 0.3 MG/0.3 ML auto-injector 0.3 mg IJ PRN PRNQty: 1 0RF Patient Comments: pt has not had to use this 01/23/16 buspirone 15 mg tablet 15 mg PO DAILY Patient Comments: Pt states she takes once daily - ML 02/18/24 metformin 500 mg tablet extended release 24 hr 500 tab PO DAILY Patient Comments: TAKE ONE TABLET BY MOUTH EVERY DAY Discharge Instructions Instructions: Muscle and Bone Pain (DC) Additional Instructions: Take the Keflex for the abscess underneath your right arm warm compresses and you may apply topical bacitracin or Neosporin Take the Medrol Dosepak for the joint aches and pains and follow-up with your doctor regarding this they may want to do some additional inflammatory testing You may take Flexeril as needed for musculoskeletal pain, this will make you drowsy do not operate a vehicle after taking this medication The Medrol Dosepak has a steroid and may cause your blood sugars to be elevated while you are on this medication Referrals: Nicky Brewster MD [Primary Care Provider] - 1 day Discharge Data Discharge Date/Time-TO BE ENTERED AT DEPARTURE: 12/05/24 15:46 HPI General Date/Time Provider Initiated Documentation: 12/05/24 11:12 . HPI Narrative: The patient is a 44-year-old female with a history of polycystic ovary syndrome (PCOS), adrenal adenoma, gastroesophageal reflux disease (GERD), irritable bowel syndrome (IBS), fibromyalgia, and depression. She presents with bilateral ankle, calf, arm, hand, and left knee pain. She reports that her symptoms began last Sunday. She does not report any fever or chills and confirms that there is no possibility of . She also does not report any erythema, edema, or significant localized discomfort. There is no history of illicit drug use or recent medication changes. She acknowledges having experienced similar symptoms in the past, but never to this severity. She is alert and oriented. Related Data Home Medications ?Medication ?Instructions ?Recorded ?Confirmed cetirizine 10 mg tablet 10 mg PO DAILY 01/20/15 12/05/24 epinephrine 0.3 mg/0.3 mL 0.3 mg (0.3 mL) IJ PRN PRN #1 mL 01/21/15 12/05/24 injection, auto-injector (EpiPen 2-Don) sucralfate 1 gram tablet (Carafate) 1 g PO PRN PRN 12/01/16 12/05/24 levonorgestrel 21 mcg/24 hr (up to 1 insert intrauterine ONCE 09/18/18 12/05/24 8 years) 52 mg intrauterine device (Mirena) buspirone 15 mg tablet 15 mg PO DAILY 03/14/22 12/05/24 metformin 500 mg tablet,extended 500 tab PO DAILY 06/23/22 12/05/24 release 24 hr colestipol 1 gram tablet 1 g PO ONCE PRN Indigestion 01/01/23 12/05/24 duloxetine 30 mg capsule,delayed 90 mg PO DAILY 01/01/23 12/05/24 release mecobalamin (vitamin B12) 1,000 1,000 mcg PO DAILY 11/07/23 12/05/24 mcg chewable tablet ergocalciferol (vitamin D2) 1,250 1,250 mcg PO .weekly 03/05/24 12/05/24 mcg (50,000 unit) capsule (Vitamin D2) dulaglutide 0.75 mg/0.5 mL 3 mg subcut QWEEK 10/01/24 12/05/24 subcutaneous pen injector (Trulicity) lisdexamfetamine 30 mg capsule 40 mg PO DAILY 11/05/24 12/05/24 (Vyvanse) cephalexin 500 mg capsule 500 mg PO Q6H 7 days #28 caps 12/05/24 cyclobenzaprine 10 mg tablet 10 mg PO TID PRN #14 tabs 12/05/24 methylprednisolone 4 mg tablets in See Rx Instructions PO .COMPLEX 12/05/24 a dose pack (Medrol (Don)) #21 dose pk Previous Rx's ?Medication ?Instructions ?Recorded epinephrine 0.3 mg/0.3 mL 0.3 mg (0.3 mL) IJ PRN PRN #1 mL 01/21/15 injection, auto-injector (EpiPen 2-Don) cephalexin 500 mg capsule 500 mg PO Q6H 7 days #28 caps 12/05/24 cyclobenzaprine 10 mg tablet 10 mg PO TID PRN #14 tabs 12/05/24 methylprednisolone 4 mg tablets in See Rx Instructions PO .COMPLEX 12/05/24 a dose pack (Medrol (Don)) #21 dose pk Allergies Allergy/AdvReac Type Severity Reaction Status Date / Time apricot Allergy Severe swelling Verified 12/05/24 11:16 of lips and throat cholestyramine (From Allergy Severe sores in Verified 12/05/24 11:16 Questran) mouth and throat fluoxetine (From Prozac) Allergy Severe Other (See Verified 12/05/24 11:16 Comment) ibuprofen Allergy Severe high dose Verified 12/05/24 11:16 causes extreme swelling loratadine Allergy Severe Other (See Verified 12/05/24 11:16 Comment) naproxen Allergy Severe Other (See Verified 12/05/24 11:16 Comment) peach Allergy Severe swelling Verified 12/05/24 11:16 lips and throat sertraline (From Zoloft) Allergy Severe Other (See Verified 12/05/24 11:16 Comment) sucrose (From Questran) Allergy Severe sores in Verified 12/05/24 11:16 mouth and throat sumatriptan (From Imitrex) Allergy Severe Other (See Verified 12/05/24 11:16 Comment) tree nut Allergy Severe Other (See Verified 12/05/24 11:16 Comment) banana Allergy Intermediate Other (See Verified 12/05/24 11:16 Comment) ivermectin Allergy Intermediate leukocytoclastic Verified 12/05/24 11:16 vasculitis penicillamine Allergy Intermediate hives,swell Verified 12/05/24 11:16 ing Penicillins Allergy Intermediate hives, Verified 12/05/24 11:16 swelling venlafaxine HCl (From Allergy Intermediate UNKNOWN Verified 12/05/24 11:16 Effexor) amoxicillin (From Augmentin) Allergy Mild Other (See Verified 12/05/24 11:16 Comment) clavulanic acid (From Allergy Mild Other (See Verified 12/05/24 11:16 Augmentin) Comment) dog dander Allergy Mild Other (See Verified 12/05/24 11:16 Comment) doxycycline Allergy Mild I don't Verified 12/05/24 11:16 tolerate it house dust mite Allergy Mild Other (See Verified 12/05/24 11:16 Comment) methocarbamol Allergy Mild Other (See Verified 12/05/24 11:16 Comment) sulfamethoxazole (From Allergy Mild macular Verified 12/05/24 11:16 Bactrim) rash trimethoprim (From Bactrim) Allergy Mild macular Verified 12/05/24 11:16 rash apple Allergy Swelling/Ed Verified 12/05/24 11:16 chris montelukast sodium (From AdvReac Severe facial Verified 12/05/24 11:16 Singulair) swelling, itching, depression bupropion HCl (From AdvReac Intermediate visual Verified 12/05/24 11:16 Wellbutrin) disturbances latex AdvReac Intermediate Skin Rash Verified 12/05/24 11:16 walnut Allergy Severe swelling Uncoded 12/05/24 11:16 tongue and throat General Stated Complaint: GenMedical SUJATA: 3 Exam Narrative Exam Narrative: General Appearance: Patient is alert and oriented. Vital signs: Blood pressure is mildly elevated. HEENT: Within normal limits. Respiratory: Within normal limits. cardiac: RRR Back, Musculoskeletal: Diffuse tenderness throughout the body without any obvious sign of septic arthralgia. Left ankle reported as the worst pain area. No significant calf swelling or tenderness. Extremities: No redness or evidence of septic joint. Neurovascularly intact. Skin: Warm and dry, no rash. Neurological: Normal. Course Vital Signs Vital signs: Vital Signs Temperature 36.7 C 12/05/24 11:12 Pulse 98 H 12/05/24 11:12 Respiratory Rate 12 12/05/24 11:12 Blood Pressure 153/86 H 12/05/24 11:12 Pulse Oximetry 95 12/05/24 11:12 Temperature 36.7 C 12/05/24 11:12 Temperature Source Oral 12/05/24 11:12 Pulse 98 H 12/05/24 11:12 Respiratory Rate 12 12/05/24 11:12 Blood Pressure 153/86 H 12/05/24 11:12 Blood Pressure Position Sitting 12/05/24 11:12 Pulse Oximetry 95 12/05/24 11:12 Oxygen Delivery Method Room Air 12/05/24 11:12 Oxygen Flow Rate 0 12/05/24 11:12 Pain Level 9 12/05/24 11:12 Lab/Test Results Lab/Test Results: Laboratory Tests Range/Units 12/05/24 12/05/24 12:55 15:08 WBC (4.4-10.8) 10^3/uL 10.61 RBC (3.93-5.22) 10^6/uL 4.81 Hgb (11.2-15.7) g/dL 13.4 Hct (36.0-46.0) % 41.4 MCV (80-95) fL 86 MCH (27.0-33.0) pg 27.9 MCHC (32.0-36.0) % 32.4 RDW (11.7-14.6) % 14.1 Plt Count (130-400) 10^3/uL 320 MPV (8.0-11.0) fL 8.8 Immature Gran % % 0.4 Neutrophils % % 59.3 Lymphocytes % % 32.4 Monocytes % % 5.6 Eosinophils % % 1.9 Basophils % % 0.4 Nucleated RBC % (0.0-0.3) % 0.0 Absolute Neutrophils (1.2-6.7) 10^3/uL 6.30 Absolute Lymphocytes (1.2-3.4) 10^3/uL 3.44 H Absolute Monocytes (0.1-0.8) 10^3/uL 0.59 Absolute Eosinophils (0.0-0.7) 10^3/uL 0.20 Absolute Basophils (0.0-0.2) 10^3/uL 0.04 ESR (0-20) mm/hr 55 H Sodium (136-145) mmol/L 140 Potassium (3.5-5.1) mmol/L 4.2 Chloride (98-107) mmol/L 104 Carbon Dioxide (21.0-32.0) mmol/L 28.8 Anion Gap (3-11) mmol/L 7.2 BUN (7-18) mg/dL 12 Creatinine (0.55-1.02) mg/dL 0.8 Est GFR (CKD-EPI 2020) (mL/min/1.73m2) 91.97 Glucose (74-106) mg/dL 213 H Calcium (8.5-10.1) mg/dL 9.6 Magnesium (1.8-2.4) mg/dL 1.8 Creatine Kinase (26-192) U/L 53 C-Reactive Protein (<or=0.5) mg/dL 5.20 H Medical Decision Making Laboratory Studies No leukocytosis. ESR is 55 and CRP was 5. Flu and COVID-19 swab were negative. Remainder of labs are within normal limits including a negative test. Imaging X-ray shows no obvious acute abnormality, bone spur noted. Initial Assessment: 44-year-old female with history of PCOS adrenal adenoma, GERD, IBS, fibromyalgia, depression, presents with bilateral ankle, calf, arm, hand, and left knee pain. Denies fever, chills, , redness, swelling, significant localized pain, illicit drug use, or new medications. Symptoms started last Sunday. Alert and oriented. Diffuse tenderness without obvious sign of septic arthralgia. Left ankle worst pain, no redness or evidence of septic joint. Neurovascularly intact, no significant calf swelling or tenderness. ED Course: - X-ray showed no obvious acute abnormality, bone spur noted. - Labs: no leukocytosis, elevated inflammatory markers (ESR 55, CRP 5). - Medrol Dosepak prescribed, patient aware of potential blood sugar increase. - Muscle relaxants as needed for pain. - Tick panel pending. - Flu and Covid swab negative. - Remainder of labs within normal limits, including negative test. - Patient sleeping, no distress observed. - Reassessment needed in 48 to 72 hours. - Return precautions reviewed, patient expressed understanding. - Blood pressure mildly elevated, recheck needed by her doctor. Final Assessment: Patient presents with diffuse tenderness and pain in multiple areas without signs of septic arthralgia. X-ray and labs reviewed, Medrol Dosepak and muscle relaxants prescribed. Reassessment and follow-up for blood pressure required. Clinical Impression: - Bilateral ankle, calf, arm, hand, and left knee pain - Elevated blood pressure Disposition: - Follow-Up: Reassessment in 48 to 72 hours, blood pressure recheck by her doctor. Quality:SDOH Health Related Social Needs: No Data to Display PFSH All Active Problems (Updated 12/05/24 @ 15:33 by BOOKER Bearden) Arthralgia (Acute) Abscess (Acute) Right ankle sprain (Acute) Right ankle injury (Acute 06/18/24) Pes anserinus bursitis of left knee (Acute) Bilateral carpal tunnel syndrome (Acute) Paresthesia of hand, bilateral (Acute) IUD (intrauterine device) in place (Acute 10/01/24) Mirena Type II diabetes mellitus (Acute) Ventral hernia (Acute) Right lower quadrant abdominal pain (Acute) Skin rash (Acute) After beginning Bactrim DS for labial abscess. Patient was counseled this was a allergic reaction and to refrain from Bactrim DS in the future. Polycystic ovarian syndrome (Acute) Abdominal pain (Acute) Hernia (Chronic) Adrenal adenoma (Acute) Patellar tendonitis of left knee (Acute) Morbid obesity (Acute) Chronic fatigue (Acute) Snoring (Acute) Poor sleep (Acute) B-complex deficiency (Chronic) GERD (gastroesophageal reflux disease) (Chronic) Hydradenitis (Chronic) IBS (irritable bowel syndrome) (Chronic) Neuropathic pain (Chronic) Dysphagia (Chronic) Hiatal hernia (Chronic) Screening for STD (sexually transmitted disease) (Acute 11/23/15) Migraine (Acute 03/05/15) Fibromyalgia (Acute 03/05/15) Dry eye (Acute 03/05/15) Depression (Acute 03/05/15) BMI 45.0-49.9, adult (Acute 03/05/15) Medical History Labial abscess (06/05/17) Endometritis History of rupture of uterus Bone spur of right foot Pain in left shoulder Right foot pain COVID-19 Panic disorder Knee pain, left Carpal tunnel syndrome Lateral epicondylitis Acquired talipes planus Hx gestational diabetes Exposure to communicable disease Elevated blood pressure reading Abdominal pain in female Cough Dyspnea Loss of sense of smell Other amnesia Rika-Danlos syndrome Scoliosis Cervical radiculopathy Acute joint pain Inflammatory polyarthropathy Suppurative hidradenitis Hirsutism Eczema Galactorrhea during Vulvodynia Hypertrophy of breast History of IBS Chronic sinusitis Visual disturbance Brachial plexopathy Autistic disorder Postconcussion syndrome Adjustment disorder Anxiety Major depression, chronic Vitamin B deficiency Hx of herpes zoster Surgical History History of section H/O hernia repair History of cholecystectomy section Family History Mother Hypertension Diabetes Heart disease Father Diabetes Glaucoma Hypertension Alcohol use disorder Sister Fibromyalgia ITP secondary to infection Diabetes Sister SLE (systemic lupus erythematosus related syndrome) Other Hydradenitis Ingrown hair Social History Smoking/Tobacco Use Status: Never Smoking risk assessment performed?: Yes Alcohol Intake: current Alcohol Intake frequency: holidays/special occasions only Drug use: Never Substance use type: does not use Housing: apartment Number of Children: 2 Current gender identity: female Do you feel safe at home: Yes Do you feel safe in your relationship?: Yes Female Reproductive History Menstrual control method: progestin IUCD History History Para 2 Hx # Term Pregnancies Multiple births Hx # Pregnancies Ectopic pregnancies AB induced Hx Number of Living Children AB spontaneous
[2024-12-05 15:43] VITALS: BP 153/86; PULSE 98; RESP 12; RESP 15; TEMP 36.7; O2SAT 95
[2024-12-07 23:25] LABS: Anaplasma phagocytophilum Negative (Negative); B. miyamotoi PCR Negative (Negative); Babesia divergens/MO-1 Negative (Negative); Babesia duncani Negative (Negative); Babesia microti Negative (Negative); Ehrlichia chaffeensis Negative (Negative); Ehrlichia ewingii/canis Negative (Negative); Ehrlichia muris eauclairensis Negative (Negative)
[2024-12-08 10:20] LABS: Lyme Ab w Rflx to Lyme Confirm Negative (Negative)
== END 2024-12-05 15:46 | disposition home or self-care (01) ==
PROVIDERS: Emergency Provider Physician Assistant; PCP Family Medicine
DX: L02.411 Cutaneous abscess of right axilla (principal); M25.59 Pain in other specified joint; Q79.60 Ehlers-Danlos syndrome, unspecified; Z79.84 Long term (current) use of oral hypoglycemic drugs
CPT/HCPCS: 00123; 80048; 82550; 85652; 87798; 96365; 96375; 99284; J2360; 73610; 83735; 85025; 86140; 86618; J0131; J2405

== ENCOUNTER 2025-03-05 14:16 | Outpatient (REF) | payer MEDICAID, SELFPAY ==
[2025-03-05 15:47] LABS: ESR 68 mm/hr (0-20)
[2025-03-05 16:15] LABS: C-Reactive Protein 5.38 mg/dL (<or=0.5)
[2025-03-05 17:37] LABS: Hemoglobin A1C 10.5 % (<5.7)
[2025-03-06 17:56] LABS: Rheumatoid Factor 39.2 IU/mL (<12.0)
[2025-03-09 10:15] LABS: Cyclic Citrullinated Peptide <2.5 U/mL (<5.0)
[2025-03-09 12:57] LABS: ANA Interpretation Negative (Negative)
== END 2025-03-05 14:17 | disposition home or self-care (01) ==
LOC: NCHCN 14:16
PROVIDERS: PCP Family Medicine; Visit Provider Family Medicine
DX: E11.9 Type 2 diabetes mellitus without complications (principal); M06.4 Inflammatory polyarthropathy
CPT/HCPCS: 85652; 86200; 83036; 86038; 86140; 86431

== ENCOUNTER 2025-05-12 07:11 | Emergency (ER) | payer MEDICAID, SELFPAY ==
[2025-05-12 07:12] VITALS: BP 165/84; PULSE 102; RESP 18; TEMP 36.8; O2SAT 96
--- NOTE | 2025-05-12 07:45 | W.ED.GENAD ---
Discharge Plan Disposition Patient Disposition: Home Condition: Stable Discharge Details Clinical Impression: Hydradenitis, Sinusitis Primary Care Provider: Nicky Brewster V ED Provider: Daniela Jerome Home Meds and New Rx's Prescriptions: New cefdinir 300 mg capsule 300 mg PO BID 10 Days Qty: 20 0RF No Action Trulicity 0.75 mg/0.5 mL pen injector 4.5 mg SUBCUT QWEEK Patient Comments: INJECT 0.75MG UNDER THE SKIN ONCE WEEKLY (DME) Custom Ankle Support Orthosis See Rx Instructions .ROUTE .MEDSUPPLY Qty: 1 0RF Rx Instructions: Please fit and apply to RIGHT ankle for ankle instability and weakness, unable to fit/tolerate off-the shelf. (DME) Physical Therapy See Rx Instructions .Route .MEDSUPPLY Qty: 1 0RF Rx Instructions: Please provide physical therapy to the right ankle for recent right ankle injury with weakness and subjective instability. (DME) Compression Socks See Rx Instructions .Route .MEDSUPPLY Qty: 1 0RF Rx Instructions: Light, [id number], compression socks for distal edema sucralfate [Carafate] 1 GM tablet 1 g PO PRN PRN Mirena 20 mcg/24 hr (5 years) intrauterine device 1 insert IY ONCE Patient Comments: 09/13/2018; [id number], Exp 01/2021 colestipol 1 gram tablet 1 g PO ONCE PRN (Reason: Indigestion) Rx Instructions: 1-2 tabs po as directed 1-2 times a day, 2-3 hours before or after meal duloxetine 30 mg capsule,delayed release(DR/EC) 90 mg PO DAILY Patient Comments: Pt states she takes 90 mg daily - ML 02/18/24 mecobalamin (vitamin B12) 1,000 mcg tablet,chewable 1,000 mcg PO DAILY lisdexamfetamine [Vyvanse] 30 mg capsule 40 mg PO DAILY ergocalciferol (vitamin D2) [Vitamin D2] 1,250 mcg (50,000 unit) capsule 1,250 mcg PO .weekly Rx Instructions: in winter only as per pt cetirizine 10 MG tablet 10 mg PO DAILY epinephrine [EpiPen 2-Don] 0.3 MG/0.3 ML auto-injector 0.3 mg IJ PRN PRNQty: 1 0RF Patient Comments: pt has not had to use this 01/23/16 methylprednisolone [Medrol (Don)] 4 mg tablets,dose pack See Rx Instructions .ROUTE .COMPLEX Qty: 21 0RF Rx Instructions: for 6 days cyclobenzaprine 10 mg tablet 10 mg PO TID PRNQty: 14 0RF buspirone 15 mg tablet 15 mg PO DAILY Patient Comments: Pt states she takes once daily - ML 02/18/24 metformin 500 mg tablet extended release 24 hr 500 tab PO DAILY Patient Comments: TAKE ONE TABLET BY MOUTH EVERY DAY Discharge Instructions Instructions: Sinusitis, Adult ED Additional Instructions: You were seen in the emergency department today for evaluation of skin lesions on your extremities, pubis, as well as inside your nose. You also have nasal congestion and rhinorrhea and may be developing sinusitis. I have started you on an antibiotic for your skin infections, this is called cefdinir, take it twice a day for the next 10 days, even if you are feeling better. You need to follow-up with your allergy testing tomorrow so you can restart your nasal decongestant, and please follow-up with your primary care provider in the next few days to discuss this visit and any symptoms that change, worsen, or persist. Thank you for allowing us to be part of your care. Stand Alone Forms: Work Release HPI General Mode of arrival: ambulatory. Date/Time Provider Initiated Documentation: 05/12/25 07:18. Limitations to Documentation: no limitations. Information obtained by: patient and old records reviewed. HPI Narrative: This is a 44-year-old female patient with a past medical history significant for hidradenitis suppurativa, diabetes, PCOS, GERD, IBS, and fibromyalgia who is presenting for evaluation of skin lesions. The patient reports that she has several lesions on her skin in her tongue that have not healed. She states that these are in areas that she often sees involved in her at bedtime. She also notes some sinusitis, with copious nasal discharge, states that she was recently taken off of her cetirizine in anticipation of allergy testing tomorrow. She has had significant right sided sinus pressure, states that the pain is the most bothersome to her, and is quite tearful on initial examination. She has had 2 negative MRSA cultures in the past, states she has not had fevers or chills. Related Data Home Medications ?Medication ?Instructions ?Recorded ?Confirmed cetirizine 10 mg tablet 10 mg PO DAILY 01/20/15 12/05/24 epinephrine 0.3 mg/0.3 mL 0.3 mg (0.3 mL) IJ PRN PRN #1 mL 01/21/15 12/05/24 injection, auto-injector (EpiPen 2-Don) sucralfate 1 gram tablet (Carafate) 1 g PO PRN PRN 12/01/16 12/05/24 levonorgestrel (Mirena) 1 insert intrauterine ONCE 09/18/18 12/05/24 buspirone 15 mg tablet 15 mg PO DAILY 03/14/22 12/05/24 metformin 500 mg tablet,extended 500 tab PO DAILY 06/23/22 12/05/24 release 24 hr colestipol 1 gram tablet 1 g PO ONCE PRN Indigestion 01/01/23 12/05/24 duloxetine 30 mg capsule,delayed 90 mg PO DAILY 01/01/23 12/05/24 release mecobalamin (vitamin B12) 1,000 1,000 mcg PO DAILY 11/07/23 12/05/24 mcg chewable tablet ergocalciferol (vitamin D2) 1,250 1,250 mcg PO .weekly 03/05/24 12/05/24 mcg (50,000 unit) capsule (Vitamin D2) lisdexamfetamine 30 mg capsule 40 mg PO DAILY 11/05/24 12/05/24 (Vyvanse) cyclobenzaprine 10 mg tablet 10 mg PO TID PRN #14 tabs 12/05/24 methylprednisolone 4 mg tablets in See Rx Instructions PO .COMPLEX 12/05/24 a dose pack (Medrol (Don)) #21 dose pk Compression Socks #1 ea 12/29/24 12/29/24 Custom Ankle Support Orthosis #1 ea 12/29/24 12/29/24 Physical Therapy #1 ea 12/29/24 12/29/24 dulaglutide 0.75 mg/0.5 mL 4.5 mg subcut QWEEK 12/29/24 01/02/25 subcutaneous pen injector (Trulicity) cefdinir 300 mg capsule 300 mg PO BID 10 days #20 caps 05/12/25 Previous Rx's ?Medication ?Instructions ?Recorded epinephrine 0.3 mg/0.3 mL 0.3 mg (0.3 mL) IJ PRN PRN #1 mL 01/21/15 injection, auto-injector (EpiPen 2-Don) cyclobenzaprine 10 mg tablet 10 mg PO TID PRN #14 tabs 12/05/24 methylprednisolone 4 mg tablets in See Rx Instructions PO .COMPLEX 12/05/24 a dose pack (Medrol (Don)) #21 dose pk Compression Socks #1 ea 12/29/24 Custom Ankle Support Orthosis #1 ea 12/29/24 Physical Therapy #1 ea 12/29/24 cefdinir 300 mg capsule 300 mg PO BID 10 days #20 caps 05/12/25 Allergies Allergy/AdvReac Type Severity Reaction Status Date / Time apricot Allergy Severe swelling Verified 12/05/24 11:16 of lips and throat cholestyramine (From Allergy Severe sores in Verified 12/05/24 11:16 Questran) mouth and throat fluoxetine (From Prozac) Allergy Severe Other (See Verified 12/05/24 11:16 Comment) ibuprofen Allergy Severe high dose Verified 12/05/24 11:16 causes extreme swelling loratadine Allergy Severe Other (See Verified 12/05/24 11:16 Comment) naproxen Allergy Severe Other (See Verified 12/05/24 11:16 Comment) peach Allergy Severe swelling Verified 12/05/24 11:16 lips and throat sertraline (From Zoloft) Allergy Severe Other (See Verified 12/05/24 11:16 Comment) sucrose (From Questran) Allergy Severe sores in Verified 12/05/24 11:16 mouth and throat sumatriptan (From Imitrex) Allergy Severe Other (See Verified 12/05/24 11:16 Comment) tree nut Allergy Severe Other (See Verified 12/05/24 11:16 Comment) banana Allergy Intermediate Other (See Verified 12/05/24 11:16 Comment) ivermectin Allergy Intermediate leukocytoclastic Verified 12/05/24 11:16 vasculitis penicillamine Allergy Intermediate hives,swell Verified 12/05/24 11:16 ing Penicillins Allergy Intermediate hives, Verified 12/05/24 11:16 swelling venlafaxine HCl (From Allergy Intermediate UNKNOWN Verified 12/05/24 11:16 Effexor) amoxicillin (From Augmentin) Allergy Mild Other (See Verified 12/05/24 11:16 Comment) clavulanic acid (From Allergy Mild Other (See Verified 12/05/24 11:16 Augmentin) Comment) dog dander Allergy Mild Other (See Verified 12/05/24 11:16 Comment) doxycycline Allergy Mild I don't Verified 12/05/24 11:16 tolerate it house dust mite Allergy Mild Other (See Verified 12/05/24 11:16 Comment) methocarbamol Allergy Mild Other (See Verified 12/05/24 11:16 Comment) sulfamethoxazole (From Allergy Mild macular Verified 12/05/24 11:16 Bactrim) rash trimethoprim (From Bactrim) Allergy Mild macular Verified 12/05/24 11:16 rash apple Allergy Swelling/Ed Verified 12/05/24 11:16 chris montelukast sodium (From AdvReac Severe facial Verified 12/05/24 11:16 Singulair) swelling, itching, depression bupropion HCl (From AdvReac Intermediate visual Verified 12/05/24 11:16 Wellbutrin) disturbances latex AdvReac Intermediate Skin Rash Verified 12/05/24 11:16 walnut Allergy Severe swelling Uncoded 12/05/24 11:16 tongue and throat General Stated Complaint: RashLesion SUJATA: 3 Exam Narrative Exam Narrative: Gen: Awake and alert, in no apparent distress HEENT: Non-icteric sclera, PERRL, conjunctiva symmetrically injected in the setting of crying. The patient has right-sided maxillary sinus tenderness to palpation, does have copious bilateral nasal discharge. There is a small ulcerative lesion to the left side of the tongue, oropharynx otherwise without acute findings. Neck: Supple Lungs: No apparent respiratory distress, normal respiratory effort. Lungs clear and equal CV: Appears well perfused, heart with regular rate and rhythm and strong distal pulses at the time of this provider's examination. Abdomen: Non-distended : External genital examination performed under supervision of MAVERICK Villegas, revealing normal external female genitalia and a small ulcerative lesion overlying the mons pubis, with no surrounding induration, fluctuance, or warmth. MSK: Moves 4 extremities without apparent limitation in ROM Skin: Visualized skin without rashes, cyanosis. The patient has areas of small redness and swelling less than 1/2 cm to her left arm, bilateral legs, all of which appear to be resolving appropriately without associated fluctuance to suggest abscess or surrounding cellulitic changes. Neuro: Normal Gait, no obvious focal deficits or facial asymmetry. Speaks in full, clear sentences. Psych: Appropriate for situation. Course Vital Signs Vital signs: Vital Signs Temperature 36.8 C 05/12/25 07:12 Pulse 102 H 05/12/25 07:12 Respiratory Rate 18 05/12/25 07:12 Blood Pressure 165/84 H 05/12/25 07:12 Pulse Oximetry 96 05/12/25 07:12 Temperature 36.8 C 05/12/25 07:12 Temperature Source Oral 05/12/25 07:12 Pulse 102 H 05/12/25 07:12 Respiratory Rate 18 05/12/25 07:12 Blood Pressure 165/84 H 05/12/25 07:12 Blood Pressure Position Sitting 05/12/25 07:12 Pulse Oximetry 96 05/12/25 07:12 Oxygen Delivery Method Room Air 05/12/25 07:12 Oxygen Flow Rate 0 05/12/25 07:12 Pain Level 8 05/12/25 07:12 Comment Pt crying in triage 05/12/25 07:12 Medical Decision Making This is a 44-year-old female patient presenting for evaluation of sinus and nasal congestion as well as skin lesions. My differential includes but is not limited to allergic sinusitis, certainly considered infectious, including bacterial and viral. No associated respiratory symptoms to suggest viral URI, pneumonia, bronchitis. Considered skin and soft tissue infections including cellulitis, abscess, HS lesions. The lesion in the mouth did increase my suspicion for ovfn-[id number]-[id number]-mouth disease given the recent outbreak in our area, though the patient does not have any palm or foot lesions. Overall, the patient's skin examination is reassuring against abscess or severe cellulitis. The duration of her nasal symptoms is approximately 1 week, and the patient is desiring of antibiosis which I think is reasonable at this time. She has several allergies and will be started on cefdinir. At this time, the patient has had a full medical evaluation and is safe for discharge to home. They are hemodynamically stable, ambulatory, and tolerating PO. They are understanding of the follow-up plan and return precautions. They left our facility without incident. Daniela Jerome MD [facility] All Active Problems (Updated 05/12/25 @ 07:46 by Daniela Jerome MD) Sinusitis (Acute) Right ankle sprain (Acute) Right ankle injury (Acute 06/18/24) Pes anserinus bursitis of left knee (Acute) Bilateral carpal tunnel syndrome (Acute) Paresthesia of hand, bilateral (Acute) IUD (intrauterine device) in place (Acute 10/01/24) Mirena Type II diabetes mellitus (Acute) Ventral hernia (Acute) Right lower quadrant abdominal pain (Acute) Skin rash (Acute) After beginning Bactrim DS for labial abscess. Patient was counseled this was a allergic reaction and to refrain from Bactrim DS in the future. Polycystic ovarian syndrome (Acute) Abdominal pain (Acute) Hernia (Chronic) Adrenal adenoma (Acute) Patellar tendonitis of left knee (Acute) Morbid obesity (Acute) Chronic fatigue (Acute) Snoring (Acute) Poor sleep (Acute) B-complex deficiency (Chronic) GERD (gastroesophageal reflux disease) (Chronic) Hydradenitis (Chronic) IBS (irritable bowel syndrome) (Chronic) Neuropathic pain (Chronic) Dysphagia (Chronic) Hiatal hernia (Chronic) Screening for STD (sexually transmitted disease) (Acute 11/23/15) Migraine (Acute 03/05/15) Fibromyalgia (Acute 03/05/15) Dry eye (Acute 03/05/15) Depression (Acute 03/05/15) BMI 45.0-49.9, adult (Acute 03/05/15) Medical History Labial abscess (06/05/17) Endometritis History of rupture of uterus Bone spur of right foot Pain in left shoulder Right foot pain COVID-19 Panic disorder Knee pain, left Carpal tunnel syndrome Lateral epicondylitis Acquired talipes planus Hx gestational diabetes Exposure to communicable disease Elevated blood pressure reading Abdominal pain in female Cough Dyspnea Loss of sense of smell Other amnesia Rika-Danlos syndrome Scoliosis Cervical radiculopathy Acute joint pain Inflammatory polyarthropathy Suppurative hidradenitis Hirsutism Eczema Galactorrhea during Vulvodynia Hypertrophy of breast History of IBS Chronic sinusitis Visual disturbance Brachial plexopathy Autistic disorder Postconcussion syndrome Adjustment disorder Anxiety Major depression, chronic Vitamin B deficiency Hx of herpes zoster Surgical History History of section H/O hernia repair History of cholecystectomy section Family History Mother Hypertension Diabetes Heart disease Father Diabetes Glaucoma Hypertension Alcohol use disorder Sister Fibromyalgia ITP secondary to infection Diabetes Sister SLE (systemic lupus erythematosus related syndrome) Other Hydradenitis Ingrown hair Social History Smoking/Tobacco Use Status: Never Smoking risk assessment performed?: Yes Alcohol Intake: current Alcohol Intake frequency: holidays/special occasions only Drug use: Never Substance use type: does not use Housing: apartment Number of Children: 2 Current gender identity: female Do you feel safe at home: Yes Do you feel safe in your relationship?: Yes Female Reproductive History Menstrual control method: progestin IUCD History History Para 2 Hx # Term Pregnancies Multiple births Hx # Pregnancies Ectopic pregnancies AB induced Hx Number of Living Children AB spontaneous
[2025-05-12] MEDS: Cefdinir 300 MG CAP PO (08:03)
== END 2025-05-12 08:04 | disposition home or self-care (01) ==
PROVIDERS: Emergency Provider Emergency Medicine; PCP Family Medicine
DX: L73.2 Hidradenitis suppurativa (principal); J32.9 Chronic sinusitis, unspecified; E11.9 Type 2 diabetes mellitus without complications; Z79.84 Long term (current) use of oral hypoglycemic drugs
CPT/HCPCS: 36415; 96365; 96367; 96368; 96375; 99283; 99285; 99284

== ENCOUNTER 2025-06-15 23:18 | Emergency (ER) | payer MEDICAID, SELFPAY ==
[2025-06-15 23:20] VITALS: BP 146/69; PULSE 119; RESP 30; TEMP 36.8; O2SAT 97
[2025-06-15 23:25] VITALS: BP 146/69; PULSE 119; RESP 30; TEMP 36.8; O2SAT 97
--- NOTE | 2025-06-15 23:28 | W.ED.GENAD ---
Discharge Plan Disposition Patient Disposition: Home Condition: Improving Discharge Details Clinical Impression: Abdominal pain Primary Care Provider: Nicky Brewster V ED Provider: Dakotah Samson Meds and New Rx's Prescriptions: New hyoscyamine sulfate [Levsin/SL] 0.125 mg tablet, sublingual 0.125 mg sublingual BID-QID PRN (Reason: abdominal discomfort) Qty: 10 0RF Continued Trulicity 0.75 mg/0.5 mL pen injector 4.5 mg SUBCUT QWEEK Patient Comments: INJECT 0.75MG UNDER THE SKIN ONCE WEEKLY (DME) Custom Ankle Support Orthosis See Rx Instructions .ROUTE .MEDSUPPLY Qty: 1 0RF Rx Instructions: Please fit and apply to RIGHT ankle for ankle instability and weakness, unable to fit/tolerate off-the shelf. (DME) Physical Therapy See Rx Instructions .Route .MEDSUPPLY Qty: 1 0RF Rx Instructions: Please provide physical therapy to the right ankle for recent right ankle injury with weakness and subjective instability. (DME) Compression Socks See Rx Instructions .Route .MEDSUPPLY Qty: 1 0RF Rx Instructions: Light, [id number], compression socks for distal edema (DME) Custom Orthotic - LEFT FOOT See Rx Instructions .ROUTE .MEDSUPPLY Qty: 1 0RF Rx Instructions: Please modify current orthotic or fabricate a new orthotic to accommodate the leg length difference with the new brace on the right. sucralfate [Carafate] 1 GM tablet 1 g PO PRN PRN Mirena 20 mcg/24 hr (5 years) intrauterine device 1 insert IY ONCE Patient Comments: 09/13/2018; [id number], Exp 01/2021 colestipol 1 gram tablet 1 g PO ONCE PRN (Reason: Indigestion) Rx Instructions: 1-2 tabs po as directed 1-2 times a day, 2-3 hours before or after meal duloxetine 30 mg capsule,delayed release(DR/EC) 90 mg PO DAILY Patient Comments: Pt states she takes 90 mg daily - ML 02/18/24 mecobalamin (vitamin B12) 1,000 mcg tablet,chewable 1,000 mcg PO DAILY lisdexamfetamine [Vyvanse] 30 mg capsule 40 mg PO DAILY ergocalciferol (vitamin D2) [Vitamin D2] 1,250 mcg (50,000 unit) capsule 1,250 mcg PO .weekly Rx Instructions: in winter only as per pt cetirizine 10 MG tablet 10 mg PO DAILY epinephrine [EpiPen 2-Don] 0.3 MG/0.3 ML auto-injector 0.3 mg IJ PRN PRNQty: 1 0RF Patient Comments: pt has not had to use this 01/23/16 buspirone 15 mg tablet 15 mg PO DAILY Patient Comments: Pt states she takes once daily - ML 02/18/24 metformin 500 mg tablet extended release 24 hr 500 tab PO DAILY Patient Comments: TAKE ONE TABLET BY MOUTH EVERY DAY Discharge Instructions Instructions: Abdominal Pain, Adult ED Additional Instructions: You were seen in the ED for abdominal pain. Your symptoms improved with fluids and medications. A prescription for Levsin to help with intestinal spasm has been sent to pharmacy. Your laboratory studies and CT scan are reassuring. Recommend a clear liquid/bland diet for the next day or 2 and follow-up with primary care. Return to ED for severe worsening pain, persistent vomiting, fever, bloody diarrhea, other concerns. Unrelated to your pain but seen on your CT scan, it appears that your IUD is migrating out and not in proper position. You may want to make an appointment with [facility] in regards to this finding. Referrals: Nicky Brewster MD [Primary Care Provider, Medicine] HPI General Mode of arrival: ambulatory. Date/Time Provider Initiated Documentation: 06/15/25 23:28. Limitations to Documentation: no limitations. Information obtained by: patient, RN notes reviewed and old records reviewed. HPI Narrative: Patient presents to ED with abdominal pain. Patient reports development of right upper quadrant abdominal pain at about 11 AM. Reports feeling fine when she initially woke up. Pain has worsened over the course of the day. She denies any type of nausea or vomiting. She is constipated and unable to have a bowel movement. She took almost a bottle of magnesium citrate around 7 PM. Pain had already been getting worse at that time and continues to worsen. There is no radiation of pain into the back. She is status postcholecystectomy in the past. She has had but no other abdominal surgeries. She has a large ventral hernia which has been present for some time. Denies any fever that she is aware of. Is still not had a bowel movement despite taking the mag citrate. Related Data Home Medications ?Medication ?Instructions ?Recorded ?Confirmed cetirizine 10 mg tablet 10 mg PO DAILY 01/20/15 06/15/25 epinephrine 0.3 mg/0.3 mL 0.3 mg (0.3 mL) IJ PRN PRN #1 mL 01/21/15 06/15/25 injection, auto-injector (EpiPen 2-Don) sucralfate 1 gram tablet (Carafate) 1 g PO PRN PRN 12/01/16 06/15/25 levonorgestrel (Mirena) 1 insert intrauterine ONCE 09/18/18 06/15/25 buspirone 15 mg tablet 15 mg PO DAILY 03/14/22 06/15/25 metformin 500 mg tablet,extended 500 tab PO DAILY 06/23/22 06/15/25 release 24 hr colestipol 1 gram tablet 1 g PO ONCE PRN Indigestion 01/01/23 06/15/25 duloxetine 30 mg capsule,delayed 90 mg PO DAILY 01/01/23 06/15/25 release mecobalamin (vitamin B12) 1,000 1,000 mcg PO DAILY 11/07/23 06/15/25 mcg chewable tablet ergocalciferol (vitamin D2) 1,250 1,250 mcg PO .weekly 03/05/24 06/15/25 mcg (50,000 unit) capsule (Vitamin D2) lisdexamfetamine 30 mg capsule 40 mg PO DAILY 11/05/24 06/15/25 (Vyvanse) Compression Socks #1 ea 12/29/24 06/15/25 Custom Ankle Support Orthosis #1 ea 12/29/24 06/15/25 Physical Therapy #1 ea 12/29/24 06/15/25 dulaglutide 0.75 mg/0.5 mL 4.5 mg subcut QWEEK 12/29/24 06/15/25 subcutaneous pen injector (Trulicity) Custom Orthotic - LEFT FOOT #1 ea 05/20/25 06/15/25 hyoscyamine sulfate 0.125 mg 0.125 mg sublingual BID-QID PRN 06/16/25 sublingual tablet (Levsin/SL) abdominal discomfort #10 tabs Previous Rx's ?Medication ?Instructions ?Recorded epinephrine 0.3 mg/0.3 mL 0.3 mg (0.3 mL) IJ PRN PRN #1 mL 01/21/15 injection, auto-injector (EpiPen 2-Don) Compression Socks #1 ea 12/29/24 Custom Ankle Support Orthosis #1 ea 12/29/24 Physical Therapy #1 ea 12/29/24 Custom Orthotic - LEFT FOOT #1 ea 05/20/25 hyoscyamine sulfate 0.125 mg 0.125 mg sublingual BID-QID PRN 06/16/25 sublingual tablet (Levsin/SL) abdominal discomfort #10 tabs Allergies Allergy/AdvReac Type Severity Reaction Status Date / Time apricot Allergy Severe swelling Verified 06/15/25 23:28 of lips and throat cholestyramine (From Allergy Severe sores in Verified 06/15/25 23:28 Questran) mouth and throat fluoxetine (From Prozac) Allergy Severe Other (See Verified 06/15/25 23:28 Comment) ibuprofen Allergy Severe high dose Verified 06/15/25 23:28 causes extreme swelling loratadine Allergy Severe Other (See Verified 06/15/25 23:28 Comment) naproxen Allergy Severe Other (See Verified 06/15/25 23:28 Comment) peach Allergy Severe swelling Verified 06/15/25 23:28 lips and throat sertraline (From Zoloft) Allergy Severe Other (See Verified 06/15/25 23:28 Comment) sucrose (From Questran) Allergy Severe sores in Verified 06/15/25 23:28 mouth and throat sumatriptan (From Imitrex) Allergy Severe Other (See Verified 06/15/25 23:28 Comment) tree nut Allergy Severe Other (See Verified 06/15/25 23:28 Comment) banana Allergy Intermediate Other (See Verified 06/15/25 23:28 Comment) ivermectin Allergy Intermediate leukocytoclastic Verified 06/15/25 23:28 vasculitis penicillamine Allergy Intermediate hives,swell Verified 06/15/25 23:28 ing Penicillins Allergy Intermediate hives, Verified 06/15/25 23:28 swelling venlafaxine HCl (From Allergy Intermediate UNKNOWN Verified 06/15/25 23:28 Effexor) amoxicillin (From Augmentin) Allergy Mild Other (See Verified 06/15/25 23:28 Comment) clavulanic acid (From Allergy Mild Other (See Verified 06/15/25 23:28 Augmentin) Comment) dog dander Allergy Mild Other (See Verified 06/15/25 23:28 Comment) doxycycline Allergy Mild I don't Verified 06/15/25 23:28 tolerate it house dust mite Allergy Mild Other (See Verified 06/15/25 23:28 Comment) methocarbamol Allergy Mild Other (See Verified 06/15/25 23:28 Comment) sulfamethoxazole (From Allergy Mild macular Verified 06/15/25 23:28 Bactrim) rash trimethoprim (From Bactrim) Allergy Mild macular Verified 06/15/25 23:28 rash apple Allergy Swelling/Ed Verified 06/15/25 23:28 chris montelukast sodium (From AdvReac Severe facial Verified 06/15/25 23:28 Singulair) swelling, itching, depression bupropion HCl (From AdvReac Intermediate visual Verified 06/15/25 23:28 Wellbutrin) disturbances latex AdvReac Intermediate Skin Rash Verified 06/15/25 23:28 walnut Allergy Severe swelling Uncoded 06/15/25 23:28 tongue and throat General Stated Complaint: Abd Prob SUJATA: 3 Exam Narrative Exam Narrative: Const: Morbidly obese female holding her right abdomen and hyperventilating. VS per triage. HEENT: NC/AT. Normal facial exam. Neck: Supple. Trachea midline. Lungs: Lungs are clear. Cor: RRR without murmur. Good radial pulses. GI: Large ventral hernia in the upper mid and left abdomen. Patient is not significantly tender in the right upper quadrant where she was holding her abdomen. She has markedly increased pain with attempted reduction of her ventral hernia and tenderness. Neuro: A+O x 3. Normal speech, mentation, gait. Cranial nerves II - XII grossly intact. No gross motor or sensory deficit. Course Vital Signs Vital signs: Vital Signs Temperature 98.2 F 06/15/25 23:20 Pulse 119 H 06/15/25 23:20 Respiratory Rate 30 H 06/15/25 23:20 Blood Pressure 146/69 H 06/15/25 23:20 Pulse Oximetry 97 06/15/25 23:20 Temperature 98.2 F 06/15/25 23:25 Temperature Source Tympanic 06/15/25 23:20 Pulse 119 H 06/15/25 23:25 Respiratory Rate 30 H 06/15/25 23:25 Blood Pressure 146/69 H 06/15/25 23:25 Blood Pressure Position Sitting 06/15/25 23:25 Pulse Oximetry 97 06/15/25 23:25 Oxygen Delivery Method Room Air 06/15/25 23:25 Oxygen Flow Rate 0 06/15/25 23:25 Pain Level 10 06/15/25 23:25 Medical Decision Making Patient presenting to ED with worsening right upper quadrant abdominal pain. She is status post cholecystectomy in 2005. She has no nausea or vomiting but reports constipation and no bowel movement despite taking almost a bottle of magnesium citrate. She does not appear to be tender in the right upper quadrant which is where she is holding her abdomen but does have tenderness and increased pain over the ventral hernia. Hernia appears to be quite large and per patient and significant other is typically quite easy to reduce. At this point must consider possibility of an incarcerated hernia. IV established and fluids started. Morphine given for pain control. Laboratory studies including lactic acid and venous gas sent. CT scan of the abdomen pelvis ordered. 00:50 - Patient reports continued pain but tolerable after morphine. Laboratory studies show a white count of 13.3. Her venous pH is 7.44 with a pCO2 of 41 consistent with her hyperventilation. Her lactic acid is normal. Glucose a little high at 184 but chemistries, kidney function, liver function all normal. Lipase is normal. Urinalysis is negative for any signs of infection. Urine negative. CT scan per preliminary radiology read with no acute process. She has a large ventral hernia with fat and colon present. There is no sign of incarceration, strangulation, bowel pathology. Patient continues to complain of pain in the right upper quadrant and does describe it as waxing and waning in nature. She also states that it feels like it is changing shape and size. Pushing on the ventral hernia still causes pain in the right upper quadrant. Really not sure what to make of this. She still has fluids running in. Will try IV acetaminophen and sublingual Levsin. 02:00 - Patient reports improvement after the Levsin and acetaminophen. She is much more comfortable. Discussed discharge home to maintain a clear liquid/bland diet for the next day or 2. A prescription for Levsin will be sent to pharmacy as this may be related to intestinal colic. Follow-up with primary care. Return precautions provided. Imaging Data Radiologic Study: Imaging: CT Scan My impression: IMPRESSION: 1. Migrated IUD when compared with the prior CT from 12/20/2022. The IUD now appears to be partially within the lower uterine segment as opposed to the uterine fundus. 2. Mesenteric fat and colon containing ventral hernia as above. No findings to suggest strangulation or ischemia at this time. 3. Normal appendix. 4. No other acute intra-abdominal findings. Dictated and Authenticated by: Laurie Morrison MD. Orderin Chapin Claire MD Lab Data Lab results reviewed: Yes I reviewed the patient's lab results. Lab results narrative: see [facility] All Active Problems (Updated 06/16/25 @ 01:59 by Dakotah Samson MD) Right ankle sprain (Acute) Right ankle injury (Acute 06/18/24) Pes anserinus bursitis of left knee (Acute) Bilateral carpal tunnel syndrome (Acute) Paresthesia of hand, bilateral (Acute) IUD (intrauterine device) in place (Acute 10/01/24) Mirena Type II diabetes mellitus (Acute) Ventral hernia (Acute) Right lower quadrant abdominal pain (Acute) Skin rash (Acute) After beginning Bactrim DS for labial abscess. Patient was counseled this was a allergic reaction and to refrain from Bactrim DS in the future. Polycystic ovarian syndrome (Acute) Abdominal pain (Acute) Hernia (Chronic) Adrenal adenoma (Acute) Patellar tendonitis of left knee (Acute) Morbid obesity (Acute) Chronic fatigue (Acute) Snoring (Acute) Poor sleep (Acute) B-complex deficiency (Chronic) GERD (gastroesophageal reflux disease) (Chronic) Hydradenitis (Chronic) IBS (irritable bowel syndrome) (Chronic) Neuropathic pain (Chronic) Dysphagia (Chronic) Hiatal hernia (Chronic) Screening for STD (sexually transmitted disease) (Acute 11/23/15) Migraine (Acute 03/05/15) Fibromyalgia (Acute 03/05/15) Dry eye (Acute 03/05/15) Depression (Acute 03/05/15) BMI 45.0-49.9, adult (Acute 03/05/15) Medical History Labial abscess (06/05/17) Endometritis History of rupture of uterus Bone spur of right foot Pain in left shoulder Right foot pain COVID-19 Panic disorder Knee pain, left Carpal tunnel syndrome Lateral epicondylitis Acquired talipes planus Hx gestational diabetes Exposure to communicable disease Elevated blood pressure reading Abdominal pain in female Cough Dyspnea Loss of sense of smell Other amnesia Rika-Danlos syndrome Scoliosis Cervical radiculopathy Acute joint pain Inflammatory polyarthropathy Suppurative hidradenitis Hirsutism Eczema Galactorrhea during Vulvodynia Hypertrophy of breast History of IBS Chronic sinusitis Visual disturbance Brachial plexopathy Autistic disorder Postconcussion syndrome Adjustment disorder Anxiety Major depression, chronic Vitamin B deficiency Hx of herpes zoster Surgical History History of section H/O hernia repair History of cholecystectomy section Family History Mother Hypertension Diabetes Heart disease Father Diabetes Glaucoma Hypertension Alcohol use disorder Sister Fibromyalgia ITP secondary to infection Diabetes Sister SLE (systemic lupus erythematosus related syndrome) Other Hydradenitis Ingrown hair Social History Smoking/Tobacco Use Status: Never Smoking risk assessment performed?: Yes Alcohol Intake: current Alcohol Intake frequency: a few times a month Drug use: Never Substance use type: does not use Housing: apartment Number of Children: 2 Current gender identity: female Do you feel safe at home: Yes Do you feel safe in your relationship?: Yes Female Reproductive History Menstrual control method: progestin IUCD History History Para 2 Hx # Term Pregnancies Multiple births Hx # Pregnancies Ectopic pregnancies AB induced Hx Number of Living Children AB spontaneous
[2025-06-15 23:40] LABS: Glucose Negative (Negative)
[2025-06-15] MEDS: Omnipaque 350 MG/ML 100 ML BTL IJ (23:59)
[2025-06-15] MEDS: Normal Saline - Diluent 50 ML VIAL IJ (23:59)
[2025-06-16] VITALS (15 sets, daily range): BP systolic 128; BP diastolic 61; PULSE 87–105; RESP 18; O2SAT 94–99
[2025-06-16] MEDS: Normal Saline Flush 10 ML SYR IVP
--- NOTE | 2025-06-16 00:01 | DI.CT_ITS ---
Exam(s) CT ABDOMEN PELVIS W EXAM: CT ABDOMEN PELVIS W CLINICAL HISTORY: abdominal pain x 12 hours worsening. TECHNIQUE: Imaging Protocol: Axial computed tomography images with coronal and sagittal reformatted images were created and reviewed CONTRAST MATERIAL: Intravenous: Omnipaque 350 Contrast volume:100 ml Oral: no COMPARISON: CT CT ABDOMEN PELVIS WO from 12/20/2022 FINDINGS: ABDOMEN and PELVIS: Lung Bases: No acute findings. Liver: Enlarged. Mild hepatic steatosis. No suspicious mass. Gallbladder and biliary tract: Cholecystectomy.. No biliary dilation. Pancreas: Normal density. No abnormal calcifications or inflammatory process. No evidence of mass. Spleen: Normal. Kidneys: Normal size, contour and axis. No radiodense stones. No obstructive uropathy. No suspicious masses seen. Adrenal glands: Stable left adrenal adenoma. No follow-up recommended. Vasculature: Abdominal aorta non-dilated. Soft tissues: Ventral hernia again noted above the level of the umbilicus containing a loop of nonobstructed colon. Bladder: No gross wall thickening. No calculi.No focal mass. Bowel: No obstruction. No bowel wall thickening. Appendix normal. Moderate to increased stool. Peritoneal cavity: No ascites. No focal collection. No mesenteric inflammatory response. No free air. Bones: Unremarkable for age. Reproductive organs: IUD which now appears to be located in the mid to lower uterine segment as opposed to the fundus as by seen on the prior exam. The uterus is retroflexed.. Lymph nodes: No pathologically enlarged lymph nodes. IMPRESSION:: Stable appearance of ventral hernia above the level of the umbilicus containing a loop of nonobstructed colon. Appendix normal. The uterus is mildly retroflexed. The IUD appears to have migrated distally, in the mid to lower uterine segment. The preliminary [facility] report was reviewed. RADIATION DOSE DELIVERED: 921.62mGy.cm Total DLP DATA REPOSITORY: All CT scans at this facility are submitted to the National Radiology Data Registry (NRDR) Dose Index Registry (DIR) with the [employer] ([employer]). RADIATION OPTIMIZATION: All CT scans at this facility use at least one of these dose optimization techniques: automated exposure control; mA and/or kV adjustment per patient size (includes targeted exams where dose is matched to clinical indication); or iterative reconstruction.
[2025-06-16] MEDS: Normal Saline 1,000 ML 1000 ML IV (00:03)
[2025-06-16] MEDS: MORPHine 4 MG/ML SYR IVP (00:03)
[2025-06-16 00:04] LABS: BE (Venous) 4 mmol/L (-2-3); HCO3 (Venous) 28 mmol/L (23-28); O2 Sat (Venous) 68 %; TCO2 (Venous) 25 mmol/L (24-29); pCO2 (Venous) 41 mmHg (41-51); pO2 (Venous) 34 mmHg
[2025-06-16 00:06] LABS: Abs Immature Grans 0.05 10^3/uL (0.0-0.06); HCT 39.2 % (36.0-46.0); HGB 12.6 g/dL (11.2-15.7); Immature Grans % 0.4 %; MCH 27.4 pg (27.0-33.0); MCHC 32.1 % (32.0-36.0); MCV 85 fL (80-95); MPV 8.9 fL (8.0-11.0); Platelet Count 339 10^3/uL (130-400); RBC 4.60 10^6/uL (3.93-5.22); RDW 14.5 % (11.7-14.6); RDW-SD 44.5 fL; WBC 13.26 10^3/uL (4.4-10.8)
[2025-06-16 00:25] LABS: ALT 18 U/L (14-59); AST 18 U/L (15-37); Albumin 3.2 g/dL (3.4-5.0); Alkaline Phosphatase 116 U/L (46-116); Anion Gap 8.1 mmol/L (3-11); BUN 11 mg/dL (7-18); Bilirubin, Total 0.3 mg/dL (0.2-1.0); CO2 28.9 mmol/L (21.0-32.0); Calcium 9.3 mg/dL (8.5-10.1); Chloride 104 mmol/L (98-107); Estimated GFR 79.35 (mL/min/1.73m2); Glucose 184 mg/dL (74-106); Lipase 27 U/L (<78); Potassium 4.0 mmol/L (3.5-5.1); Sodium 141 mmol/L (136-145); Total Protein 7.7 g/dL (6.4-8.2)
--- NOTE | 2025-06-16 00:39 | DI.[facility]_ITS ---
PROCEDURE INFORMATION: Exam: CT Abdomen And Pelvis With Contrast Exam date and time: 06/16/2025 12:02 AM Age: 45 years old Clinical indication: Generalized; Prior surgery; Surgery date: 6+ months; Surgery type: C-sections, cholecystectomy, hernia repair; Abdominal pain x 12 hours worsening TECHNIQUE: Imaging protocol: Computed tomography of the abdomen and pelvis with contrast. Radiation optimization: All CT scans at this facility use at least one of these dose optimization techniques: automated exposure control; mA and/or kV adjustment per patient size (includes targeted exams where dose is matched to clinical indication); or iterative reconstruction. Contrast material: OMNIPAQUE 350; Contrast volume: 100 ml; Contrast route: INTRAVENOUS (IV); COMPARISON: CT ABDOMEN PELVIS WO 12/20/2022 3:08 PM FINDINGS: Liver: The liver has a normal appearance. Gallbladder and biliary ducts: The gallbladder is surgically absent. Pancreas: Normal. No ductal dilation. Spleen: The spleen demonstrates normal size. Adrenal glands: The right adrenal gland has a normal appearance. There is a 1.7 cm intermediate density left adrenal gland mass which is unchanged from the study dated 12/20/2022 suggesting the presence of an adrenal adenoma. Kidneys and ureters: The kidneys are normal in size. No nephrolithiasis or hydronephrosis. No hydroureter or ureterolithiasis. Stomach and bowel: The bowel demonstrates overall normal caliber and wall thickness. The herniated bowel demonstrates normal wall thickness and normal caliber. No findings to suggest strangulation or ischemia. Appendix: The appendix is thin walled. Intraperitoneal space: Unremarkable. No free air. No significant fluid collection. Vasculature: The IVC and aorta have a normal appearance. Lymph nodes: No enlarged lymph nodes. No enlarged lymph nodes. Urinary bladder: The bladder is thin walled and fluid filled. Reproductive: An IUD is present within the lower uterine segment. This appears migrated when compared with the CT dated 12/20/2022. The uterus has a normal appearance. Bones/joints: Bones have a normal appearance. No acute fracture or suspicious bone lesion. Soft tissues: There is a fat and transverse colon containing ventral hernia. IMPRESSION: 1. Migrated IUD when compared with the prior CT from 12/20/2022. The IUD now appears to be partially within the lower uterine segment as opposed to the uterine fundus. 2. Mesenteric fat and colon containing ventral hernia as above. No findings to suggest strangulation or ischemia at this time. 3. Normal appendix. 4. No other acute intra-abdominal findings. Dictated and Authenticated by: Laurie Morrison MD. Orderin Chapin Claire MD
[2025-06-16] MEDS: ACETAMINOPHEN 1,000 MG/100 ML BAG 400 MG IVPB (00:57)
[2025-06-16] MEDS: Hyoscyamine 0.125 MG SL/ORAL/CHEW SL (00:57)
== END 2025-06-16 02:46 | disposition home or self-care (01) ==
PROVIDERS: Emergency Provider Emergency Medicine; PCP Family Medicine
DX: R10.11 Right upper quadrant pain (principal); K43.9 Ventral hernia without obstruction or gangrene
CPT/HCPCS: 36415; 80053; 81025; 82805; 83690; 96361; 96365; 96375; 99285; 74177; 81003; 83605; 85025; 99284; J0131; J2270; J3490

== ENCOUNTER 2025-06-24 11:46 | Emergency (ER) | payer MEDICAID, SELFPAY ==
[2025-06-24 11:55] VITALS: BP 116/75; PULSE 115; RESP 18; TEMP 36.7; O2SAT 97
[2025-06-24 13:27] VITALS: BP 141/83; PULSE 102; RESP 16; O2SAT 94
--- NOTE | 2025-06-24 14:22 | ED.GENADUL_ITS ---
Discharge Plan Disposition Patient Disposition: Home Discharge Details Clinical Impression: Abdominal pain Primary Care Provider: Nicky Brewster V ED Provider: Rodrick Steven Home Meds and New Rx's Prescriptions: Continued Trulicity 0.75 mg/0.5 mL pen injector 4.5 mg SUBCUT QWEEK Patient Comments: INJECT 0.75MG UNDER THE SKIN ONCE WEEKLY (DME) Custom Ankle Support Orthosis See Rx Instructions .ROUTE .MEDSUPPLY Qty: 1 0RF Rx Instructions: Please fit and apply to RIGHT ankle for ankle instability and weakness, unable to fit/tolerate off-the shelf. (DME) Physical Therapy See Rx Instructions .Route .MEDSUPPLY Qty: 1 0RF Rx Instructions: Please provide physical therapy to the right ankle for recent right ankle injury with weakness and subjective instability. (DME) Compression Socks See Rx Instructions .Route .MEDSUPPLY Qty: 1 0RF Rx Instructions: Light, [id number], compression socks for distal edema (DME) Custom Orthotic - LEFT FOOT See Rx Instructions .ROUTE .MEDSUPPLY Qty: 1 0RF Rx Instructions: Please modify current orthotic or fabricate a new orthotic to accommodate the leg length difference with the new brace on the right. sucralfate [Carafate] 1 GM tablet 1 g PO PRN PRN Mirena 20 mcg/24 hr (5 years) intrauterine device 1 insert IY ONCE Patient Comments: 09/13/2018; [id number], Exp 01/2021 colestipol 1 gram tablet 1 g PO ONCE PRN (Reason: Indigestion) Rx Instructions: 1-2 tabs po as directed 1-2 times a day, 2-3 hours before or after meal duloxetine 30 mg capsule,delayed release(DR/EC) 90 mg PO DAILY Patient Comments: Pt states she takes 90 mg daily - ML 02/18/24 mecobalamin (vitamin B12) 1,000 mcg tablet,chewable 1,000 mcg PO DAILY lisdexamfetamine [Vyvanse] 30 mg capsule 40 mg PO DAILY ergocalciferol (vitamin D2) [Vitamin D2] 1,250 mcg (50,000 unit) capsule 1,250 mcg PO .weekly Rx Instructions: in winter only as per pt cetirizine 10 MG tablet 10 mg PO DAILY epinephrine [EpiPen 2-Don] 0.3 MG/0.3 ML auto-injector 0.3 mg IJ PRN PRNQty: 1 0RF Patient Comments: pt has not had to use this 01/23/16 hyoscyamine sulfate [Levsin/SL] 0.125 mg tablet, sublingual 0.125 mg sublingual BID-QID PRN (Reason: abdominal discomfort) Qty: 10 0RF buspirone 15 mg tablet 15 mg PO DAILY Patient Comments: Pt states she takes once daily - ML 02/18/24 metformin 500 mg tablet extended release 24 hr 500 tab PO DAILY Patient Comments: TAKE ONE TABLET BY MOUTH EVERY DAY Discharge Instructions Additional Instructions: You are seen in the emergency department for your abdominal pain. Your blood work showed no sign of a blood clot in your lungs. Your blood work showed no sign of heart attack. Please follow-up with your primary care provider. Please return to the emergency department if you discussed if you begin vomiting do not stop or if you have any other concerns. Discharge Data Discharge Date/Time-TO BE ENTERED AT DEPARTURE: 06/24/25 17:31 HPI General Date/Time Provider Initiated Documentation: 06/24/25 12:02 . HPI Narrative: MDM This is an overall well-appearing normothermic but initially tachycardic 45-year-old patient with nausea vomiting and diarrhea concerning for multiple etiologies. Given tachycardia and pain radiating up into the chest I obtained a D-dimer which was reassuring against PE. I also obtained a troponin which was undetectable. Given duration of time since symptoms I was reassured against ACS as patient was not having chest pain. Patient did have mildly elevated alkaline phosphatase. Patient had a remote cholecystectomy so was not suspicious for acute cholecystitis. Recent CT scan had no radiodense stones and given persistent tenderness my suspicion for ureterallithiasis was low so I did not complete an ultrasound. No recent antibiotic use to suggest increased risk for C. difficile. Patient had no rash or abdomen to suggest zoster. Patient had no vaginal bleeding to suggest uterine perforation though her IUD was located lower than previously reported on her last CT scan. Patient was aware of finding but in the absence of pelvic pain I did not feel patient required a transvaginal ultrasound. Patient had no pain out of proportion to suggest necrotizing soft tissue infection. No dysuria or frequency to suggest UTI. Patient is not recently to suggest splenic arterial aneurysm. Patient does have a known ventral hernia but in the presence of diarrhea I am not suspicious for small bowel obstruction. Patient had no skin changes to suggest strangulation or incarceration so I did not feel that patient required assessment of her lactate. Patient did receive low-dose of droperidol. Patient reportedly became quite anxious after this. This occurred approximately 45 minutes after the dose. I considered sepsis however the patient's vitals were reassuring against sepsis. I treated the patient with 1 mg of midazolam. Patient's symptoms improved. Patient overall felt improved. Patient's labs were notable for leukocytosis which was slightly improved compared to prior from earlier this month. Patient had no DWAYNE. Reassuring LFTs with mild increase alkaline phosphatase compared to prior. No recent fevers nor tick bites to suggest benefit for Lyme panel and no rash. Patient and I discussed follow-up with primary care. We discussed return indications including any worsening pain nausea vomiting did not stop or any syncope. Patient understood return indications and was discharged with an empiric trial of expectant outpatient management. I reviewed [facility] [place] EMR on this patient's recent visit. Patient was seen in the ED at [facility] on 06/19/2025. Patient had a lactate which was within normal limits. Patient had a leukocytosis of 13. Patient had a CT scan which showed a decompressed bowel distal to the ventral hernia for which general surgery was consulted. General surgery was planning to discuss possible correction as an outpatient. There was a renal mass which was noted on their CT. This is an incidental finding about which the patient was already aware. Patient understands that a follow-up MRI would be helpful for progression monitoring. Tachycardia resolved prior to discharge. HPI This is an individual with a history of gallbladder removal, 2 C-sections, and a long-standing hernia presenting with nausea, vomiting, diarrhea, pain, itching, and burning. They have been experiencing symptoms of nausea, vomiting, diarrhea, pain, itching, and burning for the past 2 weeks. The pain is located on the right side, not in the usual location of their hernia. They have vomited twice today and had diarrhea twice overnight and once during the day. They report no burning sensation during urination or any rash on their stomach. They have not taken any recent antibiotics. They have not consulted a account support analyst for these symptoms. They report no fevers or recent foreign travel. They are able to keep food down but struggle with water intake. They have been managing their symptoms with painkillers. A CT scan was performed here, which did not reveal any abnormalities. Another CT scan and an ultrasound were conducted at [facility], where a nodule was detected upon palpation. They were advised to return to the emergency department if their symptoms of nausea, vomiting, and diarrhea persisted. They were scheduled for a follow-up with their primary care physician today but were unable to attend due to their discomfort. PAST SURGICAL HISTORY: Gallbladder removal, 2 C-sections Exam General: Uncomfortable-appearing in no acute distress speaking in complete sentences. Head: Normocephalic, atraumatic. Eye: Extraocular eye movements intact. No conjunctival injection. No scleral icterus. Ear, nose, mouth, throat: Grossly normal inspection. Normal voice, handling secretions normally. Neck: Trachea midline. Cardiovascular: Well-perfused distal extremities. Respiratory: Nonlabored respiration. Clear lungs bilaterally. Gastrointestinal: Nondistended abdomen. Soft. Right sided upper and lower abdominal tenderness. No rebound. No guarding. Musculoskeletal: No edema. Moving all 4 extremities spontaneously. Skin: Normal for age and race, grossly normal temperature and turgor. No acute rash. Neurologic: Alert and appropriate, no apparent acute deficits. Psychiatric: Mood and manner are appropriate. Grooming and personal hygiene are appropriate. Related Data Home Medications ?Medication ?Instructions ?Recorded ?Confirmed cetirizine 10 mg tablet 10 mg PO DAILY 01/20/1506/15 epinephrine 0.3 mg/0.3 mL 0.3 mg (0.3 mL) IJ PRN PRN # 1 mL 01/21/15 06/24/25 injection, auto-injector (EpiPen 2-Don) sucralfate 1 gram tablet (Carafate) 1 g PO PRN PRN 06/24/25 levonorgestrel (Mirena) 1 insert intrauterine ONCE 1 11/19/17 06/24/25 buspirone 15 mg tablet 15 mg PO DAILY 03/14/2206/15 metformin 500 mg tablet,extended 500 tab PO DAILY 07/0606/24/25 release 24 hr colestipol 1 gram tablet 1 g PO ONCE PRN Indigestion 01/01/23 06/24/25 duloxetine 30 mg capsule,delayed 90 mg PO DAILY 06/24/25 release mecobalamin (vitamin B12) 1,000 1,000 mcg PO DAILY 06/24/25 mcg chewable tablet ergocalciferol (vitamin D2) 1,250 1,250 mcg PO .weekly 03/05/24 06/24/25 mcg (50,000 unit) capsule (Vitamin D2) lisdexamfetamine 30 mg capsule 40 mg PO DAILY 11/05/24 06/24/25 (Vyvanse) Compression Socks #1 ea 12/29/24 06/24/25 Custom Ankle Support Orthosis #1 ea 12/29/24 06/24/25 Physical Therapy #1 ea 12/29/24 06/24/25 dulaglutide 0.75 mg/0.5 mL 4.5 mg subcut QWEEK 5 06/24/25 subcutaneous pen injector (Trulicity) Custom Orthotic - LEFT FOOT #1 ea 05/20/25 06/24/25 hyoscyamine sulfate 0.125 mg 0.125 mg sublingual BID-Q ID PRN 06/16/25 06/24/25 sublingual tablet (Levsin/SL) abdominal discomfort #10 tabs Previous Rx's ?Medication ?Instructions ?Recorded epinephrine 0.3 mg/0.3 mL 0.3 mg (0.3 mL) IJ PRN PRN # 1 mL 01/21/15 injection, auto-injector (EpiPen 2-Don) Compression Socks #1 ea 12/29/24 Custom Ankle Support Orthosis #1 ea 12/29/24 Physical Therapy #1 ea 12/29/24 Custom Orthotic - LEFT FOOT #1 ea 05/20/25 hyoscyamine sulfate 0.125 mg 0.125 mg sublingual BID-Q ID PRN 06/16/25 sublingual tablet (Levsin/SL) abdominal discomfort #10 tabs Allergies Allergy/AdvReac Type Severity Reaction Status Date / Time apricot Allergy Severe swelling Verified 06/24/25 11:57 of lips and throat cholestyramine (From Allergy Severe sores in Verified 06/24/25 11:57 Questran) mouth and throat fluoxetine (From Prozac) Allergy Severe Other (See Verified 06/24/25 11:57 Comment) ibuprofen Allergy Severe high dose Verified 06/24/25 11:57 causes extreme swelling loratadine Allergy Severe Other (See Verified 06/24/25 11:57 Comment) naproxen Allergy Severe Other (See Verified 06/24/25 11:57 Comment) peach Allergy Severe swelling Verified 06/24/25 11:57 lips and throat sertraline (From Zoloft) Allergy Severe Other (See Verified 06/24/25 11:57 Comment) sucrose (From Questran) Allergy Severe sores in Verified 06/24/25 11:57 mouth and throat sumatriptan (From Imitrex) Allergy Severe Other (See Verified 06/24/25 11:57 Comment) tree nut Allergy Severe Other (See Verified 06/24/25 11:57 Comment) banana Allergy Intermediate Other (See Verified 06/24/25 11:57 Comment) ivermectin Allergy Intermediate leukocytoclastic Verified 06/24/25 11:57 vasculitis penicillamine Allergy Intermediate hives,swell Verified 06/24/25 11:57 ing Penicillins Allergy Intermediate hives, Verified 06/24/25 11:57 swelling venlafaxine HCl (From Allergy Intermediate UNKNOWN Verified 06/24/25 11:57 Effexor) amoxicillin (From Augmentin) Allergy Mild Other (See Verified 06/24/25 11:57 Comment) clavulanic acid (From Allergy Mild Other (See Verified 06/24/25 11:57 Augmentin) Comment) dog dander Allergy Mild Other (See Verified 06/24/25 11:57 Comment) doxycycline Allergy Mild I don't Verified 06/24/25 11:57 tolerate it house dust mite Allergy Mild Other (See Verified 06/24/25 11:57 Comment) methocarbamol Allergy Mild Other (See Verified 06/24/25 11:57 Comment) sulfamethoxazole (From Allergy Mild macular Verified 06/24/25 11:57 Bactrim) rash trimethoprim (From Bactrim) Allergy Mild macular Verified 06/24/25 11:57 rash apple Allergy Swelling/Ed Verified 06/24/25 11:57 chris montelukast sodium (From AdvReac Severe facial Verified 06/24/25 11:57 Singulair) swelling, itching, depression bupropion HCl (From AdvReac Intermediate visual Verified 06/24/25 11:57 Wellbutrin) disturbances latex AdvReac Intermediate Skin Rash Verified 06/24/25 11:57 walnut Allergy Severe swelling Uncoded 06/24/25 11:57 tongue and throat General Stated Complaint: Abd Prob SUJATA: 3 Course Vital Signs Vital signs: Vital Signs Temperature 36.7 C 06/24/25 11:55 Pulse 115 H 06/24/25 11:55 Respiratory Rate 18 06/24/25 11:55 Blood Pressure 116/75 06/24/25 11:55 Pulse Oximetry 97 06/24/25 11:55 Temperature 36.7 C 06/24/25 11:55 Temperature Source Oral 06/24/25 11:55 Pulse 102 H 06/24/25 13:27 Pulse Rhythm Regular 06/24/25 13:27 Pulse Strength Normal 06/24/25 13:27 Respiratory Rate 16 06/24/25 13:27 Respiratory Effort Normal, Non-Labored 06/24/25 13:27 Respiratory Depth Normal 06/24/25 13:27 Respiratory Pattern Normal 06/24/25 13:27 Blood Pressure 141/83 H 06/24/25 13:27 Blood Pressure Mean 102 06/24/25 13:27 Blood Pressure Position Sitting 06/24/25 13:27 Pulse Oximetry 94 06/24/25 13:27 Oxygen Delivery Method Room Air 06/24/25 13:27 Oxygen Flow Rate 0 06/24/25 13:27 PFSH All Active Problems (Updated 06/24/25 @ 17:17 by Rodrick Steven MD) Abdominal pain (Acute) Right ankle sprain (Acute) Right ankle injury (Acute 06/18/24) Pes anserinus bursitis of left knee (Acute) Bilateral carpal tunnel syndrome (Acute) Paresthesia of hand, bilateral (Acute) IUD (intrauterine device) in place (Acute 10/01/24) Mirena Type II diabetes mellitus (Acute) Ventral hernia (Acute) Right lower quadrant abdominal pain (Acute) Skin rash (Acute) After beginning Bactrim DS for labial abscess. Patient was counseled this was a allergic reaction and to refrain from Bactrim DS in the future. Polycystic ovarian syndrome (Acute) Abdominal pain (Acute) Hernia (Chronic) Adrenal adenoma (Acute) Patellar tendonitis of left knee (Acute) Morbid obesity (Acute) Chronic fatigue (Acute) Snoring (Acute) Poor sleep (Acute) B-complex deficiency (Chronic) GERD (gastroesophageal reflux disease) (Chronic) Hydradenitis (Chronic) IBS (irritable bowel syndrome) (Chronic) Neuropathic pain (Chronic) Dysphagia (Chronic) Hiatal hernia (Chronic) Screening for STD (sexually transmitted disease) (Acute 11/23/15) Migraine (Acute 03/05/15) Fibromyalgia (Acute 03/05/15) Dry eye (Acute 03/05/15) Depression (Acute 03/05/15) BMI 45.0-49.9, adult (Acute 03/05/15) Medical History Labial abscess (06/05/17) Endometritis History of rupture of uterus Bone spur of right foot Pain in left shoulder Right foot pain COVID-19 Panic disorder Knee pain, left Carpal tunnel syndrome Lateral epicondylitis Acquired talipes planus Hx gestational diabetes Exposure to communicable disease Elevated blood pressure reading Abdominal pain in female Cough Dyspnea Loss of sense of smell Other amnesia Rika-Danlos syndrome Scoliosis Cervical radiculopathy Acute joint pain Inflammatory polyarthropathy Suppurative hidradenitis Hirsutism Eczema Galactorrhea during Vulvodynia Hypertrophy of breast History of IBS Chronic sinusitis Visual disturbance Brachial plexopathy Autistic disorder Postconcussion syndrome Adjustment disorder Anxiety Major depression, chronic Vitamin B deficiency Hx of herpes zoster Surgical History History of section H/O hernia repair History of cholecystectomy section Family History Mother Hypertension Diabetes Heart disease Father Diabetes Glaucoma Hypertension Alcohol use disorder Sister Fibromyalgia ITP secondary to infection Diabetes Sister SLE (systemic lupus erythematosus related syndrome) Other Hydradenitis Ingrown hair Social History Smoking/Tobacco Use Status: Never Smoking risk assessment performed?: Yes Alcohol Intake: current Alcohol Intake frequency: a few times a month Drug use: Never Substance use type: does not use Housing: apartment Number of Children: 2 Current gender identity: female Do you feel safe at home: Yes Do you feel safe in your relationship?: Yes Female Reproductive History Menstrual control method: progestin IUCD History History Para 2 Hx # Term Pregnancies Multiple births Hx # Pregnancies Ectopic pregnancies AB induced Hx Number of Living Children AB spontaneous
[2025-06-24 14:24] VITALS: BP 145/84; PULSE 96; RESP 16; O2SAT 96
[2025-06-24] MEDS: Normal Saline 500 ML IV (15:31)
[2025-06-24] MEDS: Droperidol 5 MG/2 ML VIAL 1.25 MG IVP (15:31)
[2025-06-24 15:36] LABS: Abs Immature Grans 0.04 10^3/uL (0.0-0.06); HCT 43.8 % (36.0-46.0); HGB 13.9 g/dL (11.2-15.7); Immature Grans % 0.3 %; MCH 27.4 pg (27.0-33.0); MCHC 31.7 % (32.0-36.0); MCV 86 fL (80-95); MPV 8.7 fL (8.0-11.0); Platelet Count 404 10^3/uL (130-400); RBC 5.07 10^6/uL (3.93-5.22); RDW 14.6 % (11.7-14.6); RDW-SD 46.0 fL; WBC 13.12 10^3/uL (4.4-10.8)
[2025-06-24 15:54] LABS: ALT 18 U/L (14-59); AST 11 U/L (15-37); Albumin 3.5 g/dL (3.4-5.0); Alkaline Phosphatase 123 U/L (46-116); Anion Gap 7.7 mmol/L (3-11); BUN 14 mg/dL (7-18); Bilirubin, Total 0.2 mg/dL (0.2-1.0); CO2 29.3 mmol/L (21.0-32.0); Calcium 9.8 mg/dL (8.5-10.1); Chloride 103 mmol/L (98-107); Estimated GFR 91.40 (mL/min/1.73m2); Glucose 151 mg/dL (74-106); Lipase 31 U/L (<78); Potassium 3.9 mmol/L (3.5-5.1); Sodium 140 mmol/L (136-145); Total Protein 8.9 g/dL (6.4-8.2)
[2025-06-24 15:55] LABS: Troponin I < 4 ng/L (<or=51)
[2025-06-24 16:04] LABS: D-Dimer 301 ng/mlFEU (<500)
== END 2025-06-24 17:31 | disposition home or self-care (01) ==
PROVIDERS: Emergency Provider Emergency Medicine; PCP Family Medicine
DX: R11.2 Nausea with vomiting, unspecified; R19.7 Diarrhea, unspecified; R10.811 Right upper quadrant abdominal tenderness; R10.813 Right lower quadrant abdominal tenderness
CPT/HCPCS: 80053; 83690; 96361; 96374; 99284; 84484; 85025; 85379; J1790

== ENCOUNTER 2025-07-01 13:29 | Outpatient (CLI) | payer MEDICAID, SELFPAY ==
[2025-07-01 16:23] LABS: TSH (W/Ref FT4) 1.45 uIU/mL (0.36-3.74)
[2025-07-01 23:07] LABS: FSH 44.2 mIU/mL (See Note)
== END 2025-07-01 13:30 | disposition home or self-care (01) ==
LOC: LBO 08-14 13:29
PROVIDERS: PCP Family Medicine; Visit Provider Nurse Practitioner Women's Health
DX: R23.2 Flushing (principal); R63.4 Abnormal weight loss
CPT/HCPCS: 36415; 83001; 84443

== ENCOUNTER → 2025-09-18 15:03 | Outpatient (CLI) | payer MEDICAID, SELFPAY ==
--- NOTE | 2025-09-18 | DI.RAD_ITS ---
Exam(s) XR KNEE LT 3V AP,LAT,KENDRA EXAM: XR KNEE LT 3V AP,LAT,KENDRA CLINICAL HISTORY: ACUTE PAIN LT KNEE, M25.562. TECHNIQUE: 2D digital imaging was performed. COMPARISON: CR XR KNEE LT 4V AP,LAT,KENDRA,PAT from 09/19/2024 FINDINGS: 3 views No evidence of acute fracture nor prominent joint effusion. There is no degenerative joint space narrowing evident. No osteochondral defects. In the anterior compartment there is a small osteophytic density at the level of the quadriceps insertion on the anterior superior aspect of the patella. This measures 6 x 4 mm. This is a probable enthesophyte at this level. There does not appear to be abnormality of the quadriceps tendon shadow at this level. There are no calcified loose intra-articular bodies. IMPRESSION: No acute osseous findings in the left knee. DATA REPOSITORY: RADIATION DOSE DELIVERED:
== END ==
LOC: DI 15:04
PROVIDERS: PCP Family Medicine; Visit Provider Physician Assistant Medical
DX: M25.562 Pain in left knee (principal)
CPT/HCPCS: 73562